=== PATIENT | female | born 1945 | race Caucasian/White ===

== ENCOUNTER → 2016-03-31 | Outpatient (CLI) | payer OTHER ==
[~2016-03-31] MED LIST: ACET-1256 PO; CHOL200027 PO; CLC100X PO; DIPH25CA37 PO; DRGTP12 TD; GADOXETATE DISODIUM IV PRN; HYDR2.5C37 TOP; HYDR25SU20 PR; LSN5 PO; OCTR50IN INJ
--- NOTE | 2016-03-31 12:29 | DIAGNOSTIC IMAGING REPORT ---
LIVER MRI WITH AND WITHOUT INTRAVENOUS CONTRAST HISTORY: D3A.00 BENIGN CARCINOID TUMOR UNSPECIFIED SITE TECHNIQUE: Multiplanar multisequence MRI of the abdomen was performed both before and after the intravenous administration of contrast. COMPARISON STUDY: Indium 111 scan 03/03/2016. Abdomen and pelvis CT 02/10/2016. FINDINGS: The lung bases are clear. The adrenal glands, pancreas, kidneys, and spleen are unremarkable. The gallbladder is surgically absent. No retroperitoneal lymphadenopathy. Common bile duct is mildly distended measuring up to 1 cm. This is not significant changed. There is mild intrahepatic bile duct dilatation which is also unchanged. There are no filling defects within the common bile duct. This could be due to the patient's postcholecystectomy state. There is redemonstration of the irregular 4.9 x 2.3 cm soft tissue mass within the right side of the central mesentery. This is only seen on the coronal sequences. There is a 1 cm enhancing T2 hyperintense, T1 hypointense lesion within the left side of the L2 vertebral body. There are least 15-20 lesions scattered throughout the liver with the largest in the right hepatic lobe measuring 4.2 cm. These demonstrate faint hypervascular enhancement. Therefore, these are consistent with metastatic disease. IMPRESSION: 1. There are approximately 15-20 lesions scattered throughout the liver with the largest in the right hepatic lobe measuring 4.2 cm. These are consistent with metastatic disease. 2. Redemonstration of the irregular 4.9 x 2.3 cm soft tissue mass within the right side of the central mesentery. This is consistent with the patient's history of carcinoid tumor. 3. An indeterminate 1 cm enhancing T2 hyperintense lesion within the left side of the vertebral body. This could represent an additional metastatic focus. 4. No change in the bile duct dilatation. Electronically signed by: Raymundo Chambers M.D. 03/31/2016 12:28 PM Dictated Date/Time: 03/31/2016 12:15 PM
[2016-04-04 12:31] LABS: 5-HIAA 9.9 mg/24 h (<=6.0)
== END | disposition home or self-care (01) ==
LOC: C.MRI 08:57
PROVIDERS: ATTEND Surgery
DX: D3A.098 Benign carcinoid tumors of other sites (principal); C7B.00 Secondary carcinoid tumors, unspecified site; K76.9 Liver disease, unspecified; R19.09 Other intra-abdominal and pelvic swelling, mass and lump

== ENCOUNTER → 2016-04-13 | Outpatient (CLI) | payer OTHER ==
[~2016-04-13] MED LIST changes: -GADOXETATE DISODIUM IV PRN
[2016-04-13 12:09] LABS: BASO % 0.3 %; BASO ABS # 0.03 K/uL (0-0.2); COMPLETE YES; EOS % 2.2 %; HEMATOCRIT 40.1 % (37-47); IG% 0.1 %; LYMPH % 28.7 %; LYMPH ABS # 2.49 K/uL (1.2-3.4); MEAN CELL VOLUME 89.9 fL (80-100); MEAN CORPUSCULAR HEMOGLOBIN 30.9 pg (25-34); MEAN CORPUSCULAR HGB CONC 34.4 g/dl (32-36); MEAN PLATELET VOLUME 10.9 fL (7.4-10.4); MONO % 7.2 %; NEUT % 61.5 %; PLATELET COUNT 341 K/uL (130-400); RED BLOOD COUNT 4.46 M/uL (4.2-5.4); WHITE BLOOD COUNT 8.67 K/uL (4.8-10.8)
[2016-04-13 12:30] LABS: ALT/SGPT 20 U/L (12-78); BLOOD UREA NITROGEN 11 mg/dl (7-18); BUN/CREATININE RATIO 12.1 (10-20); CALCIUM 9.2 mg/dl (8.5-10.1); CARBON DIOXIDE 27 mmol/L (21-32); CHLORIDE 106 mmol/L (98-107); CREATININE 0.94 mg/dl (0.60-1.20); GLUCOSE 93 mg/dl (70-99); POTASSIUM 4.1 mmol/L (3.5-5.1); SODIUM 142 mmol/L (136-145)
[2016-04-13 12:33] LABS: ALB/GLOB RATIO 0.9 (0.9-2); ALKALINE PHOSPHATASE 129 U/L (45-117); AST/SGOT 19 U/L (15-37)
--- NOTE | 2016-04-24 05:05 | CODING QUERY NO DIAGNOSIS ---
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 Please assist us with providing a diagnosis/symptom for the test(s) below: A diagnosis/symptom was not documented on your Order. A valid diagnosis/symptom is required to bill all insurances. Please remember that we are unable to code a diagnosis of rule out, probable, possible, questionable, or suspected. DOS: 04/13/16 Tests that require a diagnosis: * CBC WITH AUTO DIFFER DIAGNOSIS: * LDH DIAGNOSIS: * COMPREHENSIVE METABO DIAGNOSIS: * CHORMOGRANIN A DIAGNOSIS: Provider Signature: Date: Thank you Hollie Barajas Health Information Management Once completed, please kindly fax back to [phone] For questions please call [phone]
== END | disposition home or self-care (01) ==
LOC: C.LAB 11:21
PROVIDERS: ATTEND Internal Medicine Hematology & Oncology
DX: C7A.019 Malignant carcinoid tumor of the small intestine, unspecified portion (principal)

== ENCOUNTER 2016-04-26 18:56 | Inpatient (IN) | payer OTHER ==
[~2016-04-26] VITALS: Ht 160 cm; Wt 74.1 kg
[~2016-04-26 18:56] MED LIST changes: -CLC100X PO; -DRGTP12 TD; -HYDR2.5C37 TOP; -HYDR25SU20 PR; -OCTR50IN INJ
[2016-04-26] MEDS ORDERED: ONDANSETRON INJ 2 MG/ML 2 ML VIAL IV STA ×2 (19:40→21:25)
[2016-04-26] MEDS ORDERED: SODIUM CHLORIDE 0.9% 1000ML 1,000 ML IV STA ×2 (19:40)
[2016-04-26] MEDS ORDERED: HYDROmorphone INJ 0.5 MG/0.5 ML SYR IV PRN (19:45)
[2016-04-26 20:07] LABS: BASO % 0.3 %; BASO ABS # 0.04 K/uL (0-0.2); COMPLETE YES; HEMATOCRIT 40.9 % (37-47); IG% 0.4 %; LYMPH % 17.6 %; LYMPH ABS # 2.02 K/uL (1.2-3.4); MEAN CELL VOLUME 89.7 fL (80-100); MEAN CORPUSCULAR HEMOGLOBIN 30.5 pg (25-34); MEAN PLATELET VOLUME 10.4 fL (7.4-10.4); MONO % 5.5 %; NEUT % 74.2 %; PLATELET COUNT 322 K/uL (130-400); RED BLOOD COUNT 4.56 M/uL (4.2-5.4); WHITE BLOOD COUNT 11.49 K/uL (4.8-10.8)
[2016-04-26 20:17] LABS: PROTHROMBIN TIME (PATIENT) 10.6 SECONDS (9.0-12.0)
[2016-04-26 20:25] LABS: BLOOD UREA NITROGEN 11 mg/dl (7-18); CREATININE 0.88 mg/dl (0.60-1.20); GLUCOSE 129 mg/dl (70-99)
[2016-04-26 20:26] LABS: ALT/SGPT 26 U/L (12-78); CALCIUM 9.3 mg/dl (8.5-10.1); CARBON DIOXIDE 30 mmol/L (21-32); CHLORIDE 102 mmol/L (98-107); SODIUM 137 mmol/L (136-145)
[2016-04-26 20:28] LABS: ALKALINE PHOSPHATASE 142 U/L (45-117); AST/SGOT 24 U/L (15-37)
--- NOTE | 2016-04-26 21:26 | DIAGNOSTIC IMAGING REPORT ---
PA CHEST RADIOGRAPH AND UPRIGHT AND SUPINE AP RADIOGRAPHS OF THE ABDOMEN CLINICAL HISTORY: Abdominal pain. COMPARISON STUDY: CT of the abdomen and pelvis and chest radiograph February 10, 2016. FINDINGS: Lung volumes are normal. No consolidation is identified. Linear left midlung opacity suggest atelectasis or scarring. Cardiac size is normal. Mediastinal contours are normal. There is no evidence of pulmonary edema. There are cholecystectomy clips. There is no free air. Bowel gas pattern is normal. Pelvic calcifications represent phleboliths. Severe arthritis of the hips is noted. A moderate amount of stool within the rectum is noted. IMPRESSION: 1. No free air or evidence of bowel obstruction. 2. No acute cardiopulmonary findings. 3. Moderate amount of stool within the rectum. Electronically signed by: Pierre El M.D. 04/26/2016 9:25 PM Dictated Date/Time: 04/26/2016 9:21 PM
[2016-04-26] MEDS ORDERED: PROMETHAZINE HCL INJ 25 MG in SODIUM CHLORIDE 0.9% 50ML 50 ML IV STA (22:05)
--- NOTE | 2016-04-26 22:26 | EMERGENCY ROOM VISIT NOTE ---
History Report prepared by Jonathan: Nina Kam Under the Supervision of: Dr. Cristobal Magallanes D.O. First contact with patient: 19:35 Chief Complaint: ABDOMINAL PAIN Stated Complaint: ABD PAIN History of Present Illness The patient is a 71 year old female who presents to the Emergency Room with complaints of constant diffuse abdominal pain that started 4.5 hours ago around 1500. The patient has experienced similar pain in the past with the tumors on her liver. 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 This is the first time the patient has experienced pain since she was diagnosed with carcinoid disease a couple months ago. The patient is also experiencing shortness of breath, but she states that it is not new. Additionally, she states that her face will intermittently get very erythematous. She denies fevers, chest pain, nausea, vomiting, hematuria, hematochezia, and rectal bleeding. The patient states that she had a bowel movement yesterday without any difficulty. She also states that she has never been given anything stronger than Tylenol when she experiences this pain. The patient has received multiple CT scans and MRIs for the carcinoid disease. The patient's most recent imaging of her abdomen was a MRI at the beginning of this month. The patient's daughter states that the patient was going to have surgery on her abdomen to remove the tumor and half of her liver, but a MRI before the surgery revealed that there were too many tumors to operate. After this, the patient's doctor reduced the number of shots that she was injecting into her abdomen and the patient's daughter states that she thinks that the patient's symptoms have been getting worse since then. The patient has a history of an appendectomy, tonsillectomy, cholecystectomy, and a hysterectomy secondary to fibroids. Source of History: patient, family (daughter) Onset: 4.5 hours ago around 1500 Position: abdomen (diffuse) Timing: constant Associated Symptoms: + SOB, No chest pain, No fevers, No hematochezia, No nausea, No urinary symptoms (hematuria), No vomiting Note: face intermittently erythematous, no rectal bleeding Review of Systems See HPI for pertinent positives & negatives. A total of 10 systems reviewed and were otherwise negative. Past Medical & Surgical Medical Problems: (1) Carcinoid tumor of abdomen (2) Coronary vasospasm (3) Syncope Surgical Problems: (1) History of hysterectomy (2) History of tonsillectomy and adenoidectomy (3) S/P appendectomy (4) S/P cholecystectomy Family History No pertinent family history Social History Smoking Status: Never Smoker Housing Status: lives with significant other Current/Historical Medications Scheduled Cholecalciferol (Vitamin D-3), 2,000 UNITS PO QAM Diphenhydramine Hcl (Benadryl), 25 MG PO DAILY Lisinopril (Lisinopril), 2.5 MG PO QAM Scheduled PRN Acetaminophen (Tylenol), 500 MG PO Q8 PRN for Pain Allergies Coded Allergies: Latex1 -Allergic Contact Dermititis (Verified Allergy, Mild, RASH, 04/26/16 ) Aspirin (Unverified Allergy, Unknown, "ASTHMA", 04/26/16) Celecoxib (Unverified Allergy, Unknown, "ASTHMA ATTACK", 04/26/16) Codeine (Unverified Allergy, Unknown, "FACE PUFFS UP", 04/26/16) Lorazepam (Unverified Allergy, Unknown, ANXIOUS, 04/26/16) Morphine (Unverified Allergy, Unknown, "FACE PUFFS UP", 04/26/16) Caffeine (Verified Adverse Reaction, Intermediate, HEADACHE, 04/26/16) Midazolam (Unverified Adverse Reaction, Intermediate, extreme anxiety, ) 2mg of versed given during heart catheterization, patient experienced extreme restlessness and anxiety. Uncoded Allergies: OPIOIDS (Adverse Reaction, Intermediate, HALLUCINATIONS, 12/05/15) Physical Exam Vital Signs Date Time Temp Pulse Resp B/P Pulse Ox O2 Delivery O2 Flow Rate FiO2 04/26/16 21:44 78 20 144/84 96 Room Air 04/26/16 20:57 71 20 162/97 96 Room Air 04/26/16 20:42 67 04/26/16 19:01 37.0 90 20 178/112 96 Room Air Physical Exam GENERAL: Patient is awake, alert, and in no acute distress. Patient is somewhat anxious appearing and uncomfortable. EYES: The conjunctivae are clear. The pupils are round and reactive. EARS, NOSE, MOUTH AND THROAT: The nose is without any evidence of any deformity. Mucous membranes are moist tongue is midline NECK: The neck is nontender and supple. RESPIRATORY: Normal respiratory effort is noted there is no evidence of wheezing rhonchi or rales CARDIOVASCULAR: Regular rate and rhythm noted there no murmurs rubs or gallops normal S1 normal S2 GASTROINTESTINAL: The abdomen is mildly distended but soft. Bowel sounds are present in all quadrants. Abdomen is diffusely tender to palpation. No guarding or rigidity appreciated. MUSCULOSKELETAL/EXTREMITIES: There is no evidence of gross deformity full range of motion is noted in the hips and shoulders SKIN: There is no obvious evidence of any rash. There are no petechiae, pallor or cyanosis noted. NEUROLOGIC: Patient is awake alert and oriented x3 Medical Decision & Procedures ER Provider Diagnostic Interpretation: X-ray results as stated below per interpretation by me and the radiologist. PA CHEST RADIOGRAPH AND UPRIGHT AND SUPINE AP RADIOGRAPHS OF THE ABDOMEN IMPRESSION: 1. No free air or evidence of bowel obstruction. 2. No acute cardiopulmonary findings. 3. Moderate amount of stool within the rectum. Electronically signed by: Pierre El M.D. 04/26/2016 9:25 PM Dictated Date/Time: 04/26/2016 9:21 PM Laboratory Results 04/26/16 20:00 Red Blood Count 4.56, Mean Corpuscular Volume 89.7, Mean Corpuscular Hemoglobin 30.5, Mean Corpuscular Hemoglobin Concent 34.0, Mean Platelet Volume 10.4, Neutrophils (%) (Auto) 74.2, Lymphocytes (%) (Auto) 17.6, Monocytes (%) (Auto) 5.5, Eosinophils (%) (Auto) 2.0, Basophils (%) (Auto) 0.3, Neutrophils # (Auto) 8.52, Lymphocytes # (Auto) 2.02, Monocytes # (Auto) 0.63, Eosinophils # (Auto) 0.23, Basophils # (Auto) 0.04 04/26/16 20:00 Test 04/26/16 20:00 White Blood Count 11.49 K/uL (4.8-10.8) Red Blood Count 4.56 M/uL (4.2-5.4) Hemoglobin 13.9 g/dL (12.0-16.0) Hematocrit 40.9 % (37-47) Mean Corpuscular Volume 89.7 fL (80-100) Mean Corpuscular Hemoglobin 30.5 pg (25-34) Mean Corpuscular Hemoglobin Concent 34.0 g/dl (32-36) Platelet Count 322 K/uL (130-400) Mean Platelet Volume 10.4 fL (7.4-10.4) Neutrophils (%) (Auto) 74.2 % Lymphocytes (%) (Auto) 17.6 % Monocytes (%) (Auto) 5.5 % Eosinophils (%) (Auto) 2.0 % Basophils (%) (Auto) 0.3 % Neutrophils # (Auto) 8.52 K/uL (1.4-6.5) Lymphocytes # (Auto) 2.02 K/uL (1.2-3.4) Monocytes # (Auto) 0.63 K/uL (0.11-0.59) Eosinophils # (Auto) 0.23 K/uL (0-0.5) Basophils # (Auto) 0.04 K/uL (0-0.2) RDW Standard Deviation 49.6 fL (36.4-46.3) RDW Coefficient of Variation 15.1 % (11.5-14.5) Immature Granulocyte % (Auto) 0.4 % Immature Granulocyte # (Auto) 0.05 K/uL (0.00-0.02) Prothrombin Time 10.6 SECONDS (9.0-12.0) Prothromb Time International Ratio 1.0 (0.9-1.1) Activated Partial Thromboplast Time 24.9 SECONDS (21.0-31.0) Partial Thromboplastin Ratio 1.0 Anion Gap 5.0 mmol/L (3-11) Est Creatinine Clear Calc Drug Dose 57.2 ml/min Estimated GFR () 76.6 Estimated GFR (Non- 66.1 BUN/Creatinine Ratio 12.0 (10-20) Calcium Level 9.3 mg/dl (8.5-10.1) Total Bilirubin 0.4 mg/dl (0.2-1) Direct Bilirubin < 0.1 mg/dl (0-0.2) Aspartate Amino Transf (AST/SGOT) 24 U/L (15-37) Alanine Aminotransferase (ALT/SGPT) 26 U/L (12-78) Alkaline Phosphatase 142 U/L (45-117) Troponin I < 0.015 ng/ml (0-0.045) Total Protein 8.1 gm/dl (6.4-8.2) Albumin 3.8 gm/dl (3.4-5.0) Lipase 98 U/L (73-393) Laboratory results per my review. Medications Administered Medications (Trade) Dose Ordered Sig/Yahaira Route Start Time Stop Time Status Last Admin Dose Admin Sodium Chloride 1,000 ml @ 999 mls/hr Q1H1M STAT IV 04/26/16 19:40 04/26/16 20:40 DC 04/26/16 20:20 999 MLS/HR Sodium Chloride (Nss 1000ml) 1,000 ml @ 125 mls/hr Q8H STAT IV 04/26/16 19:40 04/27/16 02:01 DC 04/26/16 20:21 125 MLS/HR Ondansetron HCl (Zofran Inj) 4 mg NOW STAT IV 04/26/16 19:40 04/26/16 19:41 DC 04/26/16 20:21 4 MG Hydromorphone HCl (Dilaudid Inj) 0.5 mg Q30M PRN IV 04/26/16 19:45 04/27/16 02:02 DC 04/26/16 20:21 0.5 MG Ondansetron HCl 4 mg 4 mg NOW STAT IV 04/26/16 21:25 04/26/16 21:26 DC 04/26/16 21:44 4 MG Promethazine HCl/ Sodium Chloride (Phenergan Inj/ Nss 50ml) 51 ml @ 204 mls/hr NOW STAT IV 04/26/16 22:05 04/26/16 22:19 DC 04/26/16 23:13 204 MLS/HR ECG Indication: abdominal pain Rate (beats per minute): 72 Rhythm: normal sinus Findings: ST depression (Inferior, Lateral), other (diffuse T-wave abnormality) Comparison ECG Date: 02/11/2016 Change: no significant change ED Course 1935: The patient was evaluated in room A4. A complete history and physical examination were performed. 0: Ordered Zofran Inj 4 mg IV, NSS 1,000 ml @ 125 mls/hr IV, NSS 1,000 ml @ 999 mls/hr IV 1944: Ordered Dilaudid Inj 0.5 mg IV 2124: Ordered Zofran Inj 4 mg IV 2202: Upon reevaluation, the patient is not feeling any better. I discussed results and treatment plan with the patient and her family. They verbalize agreement and understanding. The patient will be evaluated for further management and care. 2204: Ordered Promethazine HCl 25 mg/Sodium Chloride 51 ml @ 204 mls/hr IV 2211: I discussed the patient's case with Dr. Brodie Hoffman. The patient will be evaluated for further management. Medical Decision Prior records/ancillary studies reviewed. Triage Nursing notes reviewed. Additional history obtained from the patient's family. The patient's history was concerning for abdominal pain. Differential diagnosis: Etiologies such as appendicitis, diverticulitis, PUD, biliary pathology, UTI, pancreatitis, obstruction, mesenteric ischemia, aortic pathology, infections, inflammatory bowel disease, renal colic, as well as others were entertained. The patient is a 71-year-old female who presented to the emergency apartment for an evaluation of upper abdominal pain nausea and vomiting. The patient was recently diagnosed with carcinoid tumor which appears to be metastatic at this time. She was in our facility for similar complaints and was transferred to a tertiary center. The patient had a workup at the tertiary center and at this time the family does not feel that she is a surgical candidate although there is no definite plan in place for how she is going to manage this unfortunate diagnosis. The patient was treated with IV fluids IV pain medicine and IV antiemetics. She was reevaluated multiple times. On subsequent reevaluation she continues to have significant symptoms. For this reason I discussed her case with the on-call [facility] hospitalist. They have agreed to evaluate the patient in the emergency apartment for further management and disposition. Consults Time Called: 2203 Consulting Physician: Dr. Brodie Hoffman Returned Call: 2211 I discussed the patient's case with Dr. Brodie Hoffman. The patient will be evaluated for further management. Impression Primary Impression: Intractable nausea and vomiting Additional Impressions: Intractable upper abdominal pain History of malignant carcinoid tumor Scribe Attestation The scribe's documentation has been prepared under my direction and personally reviewed by me in its entirety. I confirm that the note above accurately reflects all work, treatment, procedures, and medical decision making performed by me. Departure Information Dispostion Being Evaluated By Hospitalist Referrals Kassandra Fofana PA-C (PCP) Patient Instructions My [facility] Problem Qualifiers Primary Impression: Intractable nausea and vomiting Vomiting type: unspecified Qualified Codes: R11.2 - Nausea with vomiting, unspecified
[2016-04-26] MEDS ORDERED: ONDANSETRON INJ 2 MG/ML 2 ML VIAL IV PRN (23:00)
[2016-04-26] MEDS ORDERED: SODIUM CHLORIDE 0.9% 1000ML 1,000 ML IV SCH (23:00)
[2016-04-26] MEDS ORDERED: PROMETHAZINE HCL 25 MG SUPP PR PRN (23:00)
--- NOTE | 2016-04-26 23:31 | History and Physical ---
History & Physical Date & Time of Service: Apr 26, 2016 at 23:01 Chief Complaint: Abd Pain Primary Care Physician: Kassandra Fofana PA-C History of Present Illness Source: patient 71 yo female with diffuse abdominal pain that began several hours ago. Quality described as "it just hurts" but does also say this was similar to abdominal pain she has had in the past related to her illness. She denies any issues with her bowels and last had a BM yesterday which was reportedly normal. She did not have vomiting prior to arrival, however, developed significant vomiting after a small dose of dilaudid, which of course made her abdominal pain worse. She denies any episodes of abdominal pain since her last admission to the hospital in Jan. She has had multiple imaging studies performed within that time, the latest being a CT c/a/p with IV contrast. This was performed 03/19/16 and reveals a primary ileal partially calcified carcinoid tumor with adjacent regional mesenteric mass, unchanged bilateral lobar hepatic mets, multiple pulmonary nodules and an extrahepatic biliary dilation measuring up to 1.4cm which tapers distally. She was diagnosed with abdominal carcinoid in Jan after being admitted and worked up for syncope, and was transferred to [facility] for further workup and treatment. She was found to have mets that were too extensive for surgery and she has been treated medically since that time with Octreotide injections. She is under the care of Dr. Molina for this, and the patient feels that ever since she was changed from the short-acting TID dosing to the long-acting once monthly dosing she has felt worse overall. Past Medical/Surgical History Medical Problems: (1) Carcinoid tumor of abdomen Status: Chronic (2) Coronary vasospasm Status: Chronic (3) Syncope Status: Resolved Surgical Problems: (1) History of hysterectomy Status: Chronic (2) History of tonsillectomy and adenoidectomy Status: Chronic (3) S/P appendectomy Status: Chronic (4) S/P cholecystectomy Status: Chronic Family History No pertinent family history Social History Smoking Status: Never Smoker Smokeless Tobacco Use: No Alcohol Use: none Drug Use: none Marital Status: Housing status: lives with significant other Occupational Status: retired Immunizations History of Influenza Vaccine: Yes Influenza Vaccine Date: Sep 29, 2015 History of Tetanus Vaccine?: Yes Tetanus Immunization Date: Jan 25, 2010 History of Pneumococcal: Yes Pneumococcal Date: Jan 25, 2010 History of Hepatitis B Vaccine: No Multi-Drug Resistant Organisms History of MDRO: No Allergies Coded Allergies: Latex1 -Allergic Contact Dermititis (Verified Allergy, Mild, RASH, 04/26/16 ) Aspirin (Unverified Allergy, Unknown, "ASTHMA", 04/26/16) Celecoxib (Unverified Allergy, Unknown, "ASTHMA ATTACK", 04/26/16) Codeine (Unverified Allergy, Unknown, "FACE PUFFS UP", 04/26/16) Lorazepam (Unverified Allergy, Unknown, ANXIOUS, 04/26/16) Morphine (Unverified Allergy, Unknown, "FACE PUFFS UP", 04/26/16) Caffeine (Verified Adverse Reaction, Intermediate, HEADACHE, 04/26/16) Midazolam (Unverified Adverse Reaction, Intermediate, extreme anxiety, ) 2mg of versed given during heart catheterization, patient experienced extreme restlessness and anxiety. Uncoded Allergies: OPIOIDS (Adverse Reaction, Intermediate, HALLUCINATIONS, 12/05/15) Home Medications Scheduled Cholecalciferol (Vitamin D-3), 2,000 UNITS PO QAM Diphenhydramine Hcl (Benadryl), 25 MG PO DAILY Lisinopril (Lisinopril), 2.5 MG PO QAM Scheduled PRN Acetaminophen (Tylenol), 500 MG PO Q8 PRN for Pain Review of Systems All systems were reviewed and negative except as indicated in HPI Physical Exam Vital Signs Date Time Temp Pulse Resp B/P Pulse Ox O2 Delivery O2 Flow Rate FiO2 04/26/16 21:44 78 20 144/84 96 Room Air 04/26/16 20:57 71 20 162/97 96 Room Air 04/26/16 20:42 67 04/26/16 19:01 37.0 90 20 178/112 96 Room Air GEN: WNWD, in distress as she is very nauseated and continues to vomit, alert and appropriate HEENT: NC/AT, normal sclerae CARDIO: reg rate, S1/2 heard without m/g/r LUNGS: CTA bilaterally, no crackles, rales or wheezes, good diaphragmatic excursion ABD: soft, diffusely tender more around RUQ area, non-distended, +BS, no CVA tenderness EXTREMITY: RP and DP palpable 2+ bilat, no LE swelling or edema, extremities are warm and well-perfused NEURO: CN 2-12 grossly intact, limited exam due to excessive vomiting MUSC: moving all limbs equally, no gross focal deficits, strength appears to be intact. Limited exam due to vomiting and discomfort. SKIN: warm and dry Diagnostics Laboratory Results Results Past 24 Hours Test 04/26/16 20:00 Range/Units White Blood Count 11.49 4.8-10.8 K/uL Red Blood Count 4.56 4.2-5.4 M/uL Hemoglobin 13.9 12.0-16.0 g/dL Hematocrit 40.9 37-47 % Mean Corpuscular Volume 89.7 80-100 fL Mean Corpuscular Hemoglobin 30.5 25-34 pg Mean Corpuscular Hemoglobin Concent 34.0 32-36 g/dl Platelet Count 322 130-400 K/uL Mean Platelet Volume 10.4 7.4-10.4 fL Neutrophils (%) (Auto) 74.2 % Lymphocytes (%) (Auto) 17.6 % Monocytes (%) (Auto) 5.5 % Eosinophils (%) (Auto) 2.0 % Basophils (%) (Auto) 0.3 % Neutrophils # (Auto) 8.52 1.4-6.5 K/uL Lymphocytes # (Auto) 2.02 1.2-3.4 K/uL Monocytes # (Auto) 0.63 0.11-0.59 K/uL Eosinophils # (Auto) 0.23 0-0.5 K/uL Basophils # (Auto) 0.04 0-0.2 K/uL RDW Standard Deviation 49.6 36.4-46.3 fL RDW Coefficient of Variation 15.1 11.5-14.5 % Immature Granulocyte % (Auto) 0.4 % Immature Granulocyte # (Auto) 0.05 0.00-0.02 K/uL Prothrombin Time 10.6 9.0-12.0 SECONDS Prothromb Time International Ratio 1.0 0.9-1.1 Activated Partial Thromboplast Time 24.9 21.0-31.0 SECONDS Partial Thromboplastin Ratio 1.0 Sodium Level 137 136-145 mmol/L Potassium Level 4.0 3.5-5.1 mmol/L Chloride Level 102 98-107 mmol/L Carbon Dioxide Level 30 21-32 mmol/L Anion Gap 5.0 3-11 mmol/L Blood Urea Nitrogen 11 7-18 mg/dl Creatinine 0.88 0.60-1.20 mg/dl Est Creatinine Clear Calc Drug Dose 57.2 ml/min Estimated GFR () 76.6 Estimated GFR (Non- 66.1 BUN/Creatinine Ratio 12.0 10-20 Random Glucose 129 70-99 mg/dl Calcium Level 9.3 8.5-10.1 mg/dl Total Bilirubin 0.4 0.2-1 mg/dl Direct Bilirubin < 0.1 0-0.2 mg/dl Aspartate Amino Transf (AST/SGOT) 24 15-37 U/L Alanine Aminotransferase (ALT/SGPT) 26 12-78 U/L Alkaline Phosphatase 142 45-117 U/L Troponin I < 0.015 0-0.045 ng/ml Total Protein 8.1 6.4-8.2 gm/dl Albumin 3.8 3.4-5.0 gm/dl Lipase 98 73-393 U/L Diagnostic Radiology PA CHEST RADIOGRAPH AND UPRIGHT AND SUPINE AP RADIOGRAPHS OF THE ABDOMEN IMPRESSION: 1. No free air or evidence of bowel obstruction. 2. No acute cardiopulmonary findings. 3. Moderate amount of stool within the rectum. EKG SR 72, no ST or T wave changes. Impression Assessment and Plan 71 yoF with abdominal carcinoid with mets presents with acute abdominal pain that began several hours ago, now with intractable nausea and vomiting after receiving dilaudid 1. Abdominal pain-uncertain if this is a manifestation of her known metastatic disease or if she is having acute abdominal discomfort for another separate reason. There is no bowel obstruction on xray, although she does appear full of stool. She reports that her last BM was yesterday. Her abdomen is soft on exam with diffuse tenderness. Lactate pending. Will offer supportive care overnight and help her to stop vomiting so we can reassess the abdominal pain that she came in for; consults placed to [facility] and [facility] as patient receives care with [facility] GI to weigh in on utility of MRCP given the biliary duct dilation seen on recent imaging study above. 2. Abdominal carcinoid-currently not receiving treatment aside from once monthly sandostatin 3. Xwvcogojpilc-rxppintxzk-dyxy Lis 4. Allergic rhinitis-takes benadryl PRN DVT proph: Lovenox FULL CODE Dispo: to med/surg with eval in am. Comfort [place], DO Hospitalist Level of Care Med/Surg Resuscitation Status FULL RESUSCITATION VTE Prophylaxis VTE Risk Assessment Done? Y/N: Yes Risk Level: Moderate Given or contraindicated: Enoxaparin (Lovenox)SQ
[2016-04-27 01:35] VITALS: BP 148/91; PULSE 79; TEMP 36.9; O2SAT 97; Ht 160 cm; Wt 74.1 kg
[2016-04-27] MEDS ORDERED: NURSING VERBAL MED ORDER ONE (02:15)
[2016-04-27 07:25] VITALS: BP 130/80; PULSE 62; TEMP 37; O2SAT 96
[2016-04-27] MEDS: CHOLECALCIFEROL 1000 INTER.UNIT TAB PO SCH (08:02)
[2016-04-27] MEDS: LISINOPRIL 5 MG TAB PO SCH (08:02)
[2016-04-27] MEDS: ENOXAPARIN 40 MG/0.4 ML SYR SQ SCH (08:03)
--- NOTE | 2016-04-27 10:50 | Oncology Consultation ---
Oncology/Heme Consultation Date of Consultation: Apr 27, 2016. Attending Physician: Marlon Witt MD Reason for Consultation: History of metastatic carcinoid History of Present Illness The patient is a 71-year-old female recently presented with abdominal pain and shortness of breath. She was found to have hepatic changes consistent with metastatic disease and a biopsy would reflect changes consistent with carcinoid. She has known many metastatic deposits to the liver as well as an area on the mesentery. She is been treated with octreotide now given monthly depot injections with the last injection being April 19. She was admitted with abdominal discomfort and nausea. She denies any fever or chills or shortness of breath or chest pain or weight loss. She has not seen any melena. She has had some nausea. She states she does have a difficult time tolerating narcotics. She wonders whether the monthly octreotide injections could be responsible for some of her symptoms Past Medical/Surgical History Medical Problems: (1) Dizziness Status: Acute (2) Dyspnea Status: Acute (3) History of malignant carcinoid tumor Status: Acute (4) Intractable nausea and vomiting Status: Acute (5) Intractable upper abdominal pain Status: Acute (6) Non-STEMI (non-ST elevated myocardial infarction) Status: Acute Family History No pertinent family history Social History Smoking Status: Never Smoker Smokeless Tobacco Use: No Alcohol Use: none Drug Use: none Marital Status: Housing Status: lives with significant other Occupation Status: retired Allergies Coded Allergies: Latex1 -Allergic Contact Dermititis (Verified Allergy, Mild, RASH, 04/26/16 ) Aspirin (Unverified Allergy, Unknown, "ASTHMA", 04/26/16) Celecoxib (Unverified Allergy, Unknown, "ASTHMA ATTACK", 04/26/16) Codeine (Unverified Allergy, Unknown, "FACE PUFFS UP", 04/26/16) Lorazepam (Unverified Allergy, Unknown, ANXIOUS, 04/26/16) Morphine (Unverified Allergy, Unknown, "FACE PUFFS UP", 04/26/16) Caffeine (Verified Adverse Reaction, Intermediate, HEADACHE, 04/26/16) Midazolam (Unverified Adverse Reaction, Intermediate, extreme anxiety, ) 2mg of versed given during heart catheterization, patient experienced extreme restlessness and anxiety. Uncoded Allergies: OPIOIDS (Adverse Reaction, Intermediate, HALLUCINATIONS, 12/05/15) Home Medications Scheduled Cholecalciferol (Vitamin D-3), 2,000 UNITS PO QAM Diphenhydramine Hcl (Benadryl), 25 MG PO DAILY Lisinopril (Lisinopril), 2.5 MG PO QAM Scheduled PRN Acetaminophen (Tylenol), 500 MG PO Q8 PRN for Pain Current Inpatient Medications Current Inpatient Medications Medications (Trade) Dose Ordered Sig/Yahaira Route Start Time Stop Time Status Last Admin Dose Admin Enoxaparin Sodium (Lovenox Inj) 40 mg Q24H SQ 04/27/16 09:00 05/27/16 08:59 04/27/16 08:03 40 MG Ondansetron HCl (Zofran Inj) 4 mg Q6H PRN IV 04/26/16 23:00 05/26/16 22:59 04/27/16 03:39 4 MG Promethazine HCl (Phenergan Supp) 25 mg Q6H PRN KS 04/26/16 23:00 05/26/16 22:59 Lisinopril (Zestril Tab) 2.5 mg QAM PO 04/27/16 09:00 05/27/16 08:59 04/27/16 08:02 2.5 MG Cholecalciferol (Vitamin D Tab) 2,000 inter.unit QAM PO 04/27/16 09:00 05/27/16 08:59 04/27/16 08:02 2,000 INTER.UNIT Review of Systems Constitutional: Negative for weight loss, night sweats, or fever. She and her daughter states that she does have flushing occasionally. Eyes: Negative for event change of vision ENT: Negative for epistaxis, nasal discharge, sore throat, or deafness Cardiovascular: Negative for chest pain, palpitations, dizziness, diaphoresis Respiratory: Negative for new shortness of breath,hemoptysis, or purulent cough Gastrointestinal: Negative for diarrhea, hematemesis, melena, she has had recent nausea. Again she describes this pain as being primarily mid abdomen Integumentary (skin): Negative for rash or jaundice discoloration Genitourinary: Negative for urinary frequency, hematuria, or dysuria Neurological: Negative for weakness, seizure activity, headache, or dizziness Lymphatic/Hematologic: Negative for petechiae, bleeding or new adenopathy Musculoskeletal: Negative for new joint or back pain Allergic/Immunologic: Negative for unusual rash or pruritis. Physical Exam Date Time Temp Pulse Resp B/P Pulse Ox O2 Delivery O2 Flow Rate FiO2 04/27/16 07:30 Room Air 04/27/16 07:25 37.0 62 20 130/80 96 04/27/16 01:35 36.9 79 18 148/91 97 Room Air 04/27/16 00:34 75 20 147/85 93 04/26/16 22:58 73 20 145/80 92 Room Air 04/26/16 21:44 78 20 144/84 96 Room Air 04/26/16 20:57 71 20 162/97 96 Room Air 04/26/16 20:42 67 04/26/16 19:01 37.0 90 20 178/112 96 Room Air Constitutional: vitals are stable. Eyes: Eyes are ROSEMARY EOMI without conjuctival erythema or icterus. ENT: External examination was negative for masses. Neck: Negative for masses or palpable thyromegaly Respiratory: Lung sounds were generally clear bilaterally Cardiovascular: Heart was RRR without significant murmur, gallops aoe rubs Gastrointestinal: No palpable hepatic or splenomegaly. The abdomen was soft with normal bowel sounds. Lymphatic system: there was no palpable peripheral lymphadenopathy Musculoskeletal System: The musculoskeletal system seemed concordant with age. Skin: The skin was negative for jaundice. Neurologic exam: The exam was negative for any focal findings. Deep tendon reflexes were equal and symmetrical. Psychiatric exam: Was essentially negative with normal mood and effect. Breast exam: Not done Extremities: Without significant edema or erythema Laboratory Results Last 24 Hours Test 04/26/16 20:00 04/27/16 00:22 04/27/16 06:30 White Blood Count 11.49 K/uL Red Blood Count 4.56 M/uL Hemoglobin 13.9 g/dL Hematocrit 40.9 % Mean Corpuscular Volume 89.7 fL Mean Corpuscular Hemoglobin 30.5 pg Mean Corpuscular Hemoglobin Concent 34.0 g/dl Platelet Count 322 K/uL Mean Platelet Volume 10.4 fL Neutrophils (%) (Auto) 74.2 % Lymphocytes (%) (Auto) 17.6 % Monocytes (%) (Auto) 5.5 % Eosinophils (%) (Auto) 2.0 % Basophils (%) (Auto) 0.3 % Neutrophils # (Auto) 8.52 K/uL Lymphocytes # (Auto) 2.02 K/uL Monocytes # (Auto) 0.63 K/uL Eosinophils # (Auto) 0.23 K/uL Basophils # (Auto) 0.04 K/uL RDW Standard Deviation 49.6 fL RDW Coefficient of Variation 15.1 % Immature Granulocyte % (Auto) 0.4 % Immature Granulocyte # (Auto) 0.05 K/uL Prothrombin Time 10.6 SECONDS Prothromb Time International Ratio 1.0 Activated Partial Thromboplast Time 24.9 SECONDS Partial Thromboplastin Ratio 1.0 Sodium Level 137 mmol/L Potassium Level 4.0 mmol/L Chloride Level 102 mmol/L Carbon Dioxide Level 30 mmol/L Anion Gap 5.0 mmol/L Blood Urea Nitrogen 11 mg/dl Creatinine 0.88 mg/dl Est Creatinine Clear Calc Drug Dose 57.2 ml/min Estimated GFR () 76.6 Estimated GFR (Non- 66.1 BUN/Creatinine Ratio 12.0 Random Glucose 129 mg/dl Calcium Level 9.3 mg/dl Total Bilirubin 0.4 mg/dl Direct Bilirubin < 0.1 mg/dl Aspartate Amino Transf (AST/SGOT) 24 U/L Alanine Aminotransferase (ALT/SGPT) 26 U/L Alkaline Phosphatase 142 U/L Troponin I < 0.015 ng/ml Total Protein 8.1 gm/dl Albumin 3.8 gm/dl Lipase 98 U/L Bedside Lactic Acid Venous 2.16 mmol/L Lactic Acid Level 1.5 mmol/L Assessment & Plan History of metastatic carcinoid. I believe we are obliged to do a CT of her abdomen and pelvis to assess her disease once again. The last one was done in mid January. It doesn't seem to be that she has any sort of obstructive GI symptoms. I tried to reassure her that the injections were not responsible for her nausea or pain. I would place a small dose of Duragesic perhaps 12 g per hour patch every 72 hours with Tylenol 3 1- 2 every 6 hours as needed for breakthrough pain along with a stool softener otherwise a supportive approach will continue. Thank you - I will order the CT
[2016-04-27] MEDS ORDERED: OPTIRAY 320 IV PRN (11:00)
--- NOTE | 2016-04-27 13:58 | DIAGNOSTIC IMAGING REPORT ---
CT OF THE ABDOMEN AND PELVIS WITH CONTRAST CLINICAL HISTORY: Metastatic carcinoid with abdominal pain. COMPARISON STUDY: CT of the abdomen and pelvis February 10, 2016 and liver MRI March 31, 2016. TECHNIQUE: Following IV administration of 118 mL of Optiray-320, axial images of the abdomen and pelvis were obtained from the lung bases to the proximal femurs. Images were reviewed in the axial, sagittal, and coronal planes. IV contrast was administered without complication. Oral contrast was administered. CT DOSE: 470.97 mGy.cm FINDINGS: No pneumatosis, free air or portal venous gas is present. Multiple hypodense hepatic lesions are again noted. These are less well defined than on CT of February 10, 2016. An index right hepatic lobe lesion measures 4.2 x 3.8 cm. This is slightly decreased in size since prior exam when it measured 4.5 x 3.9 cm. An anterior right hepatic lobe lesion shown on image 22 has slightly decreased in size. It now measures 2.8 cm. It previously measured 2.9 cm. The smaller lesions shown on prior MRI are not well visualized by CT. Mild biliary ductal dilatation is unchanged and likely due to prior cholecystectomy. The spleen, adrenal glands, kidneys and pancreas are unremarkable. The mesenteric mass, measuring 3.6 x 1.6 cm is similar to prior exam. A few loops of mildly dilated small bowel are noted within the right lower quadrant, adjacent to the orlando mass. However, contrast passes into the terminal ileum. There is no evidence for a high-grade small bowel obstruction. No additional enlarged lymph nodes are present. Tethering of the small bowel loops is noted within the right lower quadrant. This is unchanged. IMPRESSION: 1. Slight interval decrease in size of several hepatic lesions since prior CT suggestive of a partial treatment response. 2. No change in size of the mesenteric orlando mass. Mild dilatation of several small bowel loops with associated tethering within the right lower quadrant. Contrast passes into the terminal ileum and therefore there is no evidence for high-grade small bowel obstruction. A low-grade partial small bowel obstruction would be difficult to exclude. Electronically signed by: Pierre El M.D. 04/27/2016 1:57 PM Dictated Date/Time: 04/27/2016 1:47 PM
[2016-04-27 15:14] VITALS: BP 130/81; PULSE 66; TEMP 37; O2SAT 95
--- NOTE | 2016-04-27 15:24 | Progress Note ---
Internal Med Progress Note Date of Service: Apr 27, 2016. Provider Documentation: SUBJECTIVE: Patient is seen and examined at bedside. States having intermittent abd pain. Currently denies any abd pain, nausea, vomiting. Had 1 BM today. OBJECTIVE: Vital Signs-as noted below Physical Exam: General Appearance:Moderately built and nourished, no apparent distress Head: normocephalic, Atraumatic Eyes: normal inspection, EOMI, PERRLA Neck: supple, Trachea midline Respiratory/Chest: Normal breath sounds, CTA, No accessory muscle use Cardiovascular: S1, S2, No murmur Abdomen/GI:Soft, non tender, Bowel sounds present Extremities/Musculoskelatal:normal inspection, no edema Neurologic/Psych:AAOX3, grossly no focal neurological deficits Skin: normal color, warm Lab data as noted below. ASSESSMENT & PLAN: Abdominal pain: Likely secondary to metastatic carcinoid CT abdomen: as below No bowel obstruction on xray Had BM today Lipase/lactate levels:wnl On monthly Octreotide injections: Last dose Apr 19 Appreciate oncology help Start Duragesic 12 g per hour patch Q72H Will add Tylenol 3: 1- 2 Q6H PRN for pain control if needed stool softener PRN for constipation GI consulted S/P IVF Metastatic Abdominal carcinoid: Monthly Sandostatin Oncology following Hypertension: Stable continue Lisinopril Allergic rhinitis: Benadryl PRN DVT PX: Lovenox Code status: FULL CODE Disposition: Continue to monitor for now PROCEDURES: CT ABD: 1. Slight interval decrease in size of several hepatic lesions since prior CT suggestive of a partial treatment response. 2. No change in size of the mesenteric orlando mass. Mild dilatation of several small bowel loops with associated tethering within the right lower quadrant. Contrast passes into the terminal ileum and therefore there is no evidence for high-grade small bowel obstruction. A low-grade partial small bowel obstruction would be difficult to exclude. Vital Signs: Date Time Temp Pulse Resp B/P Pulse Ox O2 Delivery O2 Flow Rate FiO2 04/27/16 15:14 37.0 66 20 130/81 95 04/27/16 07:30 Room Air 04/27/16 07:25 37.0 62 20 130/80 96 04/27/16 01:35 36.9 79 18 148/91 97 Room Air 04/27/16 00:34 75 20 147/85 93 04/26/16 22:58 73 20 145/80 92 Room Air 04/26/16 21:44 78 20 144/84 96 Room Air 04/26/16 20:57 71 20 162/97 96 Room Air 04/26/16 20:42 67 04/26/16 19:01 37.0 90 20 178/112 96 Room Air Lab Results: Results Past 24 Hours Test 04/26/16 20:00 04/27/16 00:22 04/27/16 06:30 Range/Units White Blood Count 11.49 4.8-10.8 K/uL Red Blood Count 4.56 4.2-5.4 M/uL Hemoglobin 13.9 12.0-16.0 g/dL Hematocrit 40.9 37-47 % Mean Corpuscular Volume 89.7 80-100 fL Mean Corpuscular Hemoglobin 30.5 25-34 pg Mean Corpuscular Hemoglobin Concent 34.0 32-36 g/dl Platelet Count 322 130-400 K/uL Mean Platelet Volume 10.4 7.4-10.4 fL Neutrophils (%) (Auto) 74.2 % Lymphocytes (%) (Auto) 17.6 % Monocytes (%) (Auto) 5.5 % Eosinophils (%) (Auto) 2.0 % Basophils (%) (Auto) 0.3 % Neutrophils # (Auto) 8.52 1.4-6.5 K/uL Lymphocytes # (Auto) 2.02 1.2-3.4 K/uL Monocytes # (Auto) 0.63 0.11-0.59 K/uL Eosinophils # (Auto) 0.23 0-0.5 K/uL Basophils # (Auto) 0.04 0-0.2 K/uL RDW Standard Deviation 49.6 36.4-46.3 fL RDW Coefficient of Variation 15.1 11.5-14.5 % Immature Granulocyte % (Auto) 0.4 % Immature Granulocyte # (Auto) 0.05 0.00-0.02 K/uL Prothrombin Time 10.6 9.0-12.0 SECONDS Prothromb Time International Ratio 1.0 0.9-1.1 Activated Partial Thromboplast Time 24.9 21.0-31.0 SECONDS Partial Thromboplastin Ratio 1.0 Sodium Level 137 136-145 mmol/L Potassium Level 4.0 3.5-5.1 mmol/L Chloride Level 102 98-107 mmol/L Carbon Dioxide Level 30 21-32 mmol/L Anion Gap 5.0 3-11 mmol/L Blood Urea Nitrogen 11 7-18 mg/dl Creatinine 0.88 0.60-1.20 mg/dl Est Creatinine Clear Calc Drug Dose 57.2 ml/min Estimated GFR () 76.6 Estimated GFR (Non- 66.1 BUN/Creatinine Ratio 12.0 10-20 Random Glucose 129 70-99 mg/dl Calcium Level 9.3 8.5-10.1 mg/dl Total Bilirubin 0.4 0.2-1 mg/dl Direct Bilirubin < 0.1 0-0.2 mg/dl Aspartate Amino Transf (AST/SGOT) 24 15-37 U/L Alanine Aminotransferase (ALT/SGPT) 26 12-78 U/L Alkaline Phosphatase 142 45-117 U/L Troponin I < 0.015 0-0.045 ng/ml Total Protein 8.1 6.4-8.2 gm/dl Albumin 3.8 3.4-5.0 gm/dl Lipase 98 73-393 U/L Bedside Lactic Acid Venous 2.16 0.90-1.70 mmol/L Lactic Acid Level 1.5 0.4-2.0 mmol/L
[2016-04-27] MEDS ORDERED: DOCUSATE SODIUM 100 MG CAP PO PRN (15:45)
[2016-04-27] MEDS ORDERED: FENTANYL 12 MCG/HR TDSY TD SCH (16:00)
[2016-04-27] MEDS: CHECK FENTANYL PATCH PLACEMENT SCH ×2 (16:13→23:06)
[2016-04-27 23:13] VITALS: BP 100/67; PULSE 68; TEMP 36.7; O2SAT 92
[2016-04-28 04:19] VITALS: BP 106/65; PULSE 62; TEMP 36.6; O2SAT 98
[2016-04-28] MEDS: CHECK FENTANYL PATCH PLACEMENT SCH (07:57)
[2016-04-28] MEDS: ENOXAPARIN 40 MG/0.4 ML SYR SQ SCH (07:58)
[2016-04-28] MEDS: LISINOPRIL 5 MG TAB PO SCH (07:58)
[2016-04-28] MEDS: CHOLECALCIFEROL 1000 INTER.UNIT TAB PO SCH (07:58)
[2016-04-28 08:02] LABS: BUN/CREATININE RATIO 9.9 (10-20); CALCIUM 8.5 mg/dl (8.5-10.1); CREATININE 0.84 mg/dl (0.60-1.20); POTASSIUM 3.9 mmol/L (3.5-5.1)
[2016-04-28 08:08] VITALS: BP 128/72; PULSE 49; TEMP 36.8; O2SAT 95
[2016-04-28 09:05] VITALS: O2SAT 95
[2016-04-28 09:44] VITALS: PULSE 53
--- NOTE | 2016-04-28 10:28 | Hematology/Oncology Prog Note ---
Hematology/Onc Progress Note Date of Service Apr 28, 2016. Diagnoses Metastatic carcinoid Abdominal pain Nausea Medications Medications Administered Medications (Trade) Dose Ordered Sig/Yahaira Route Start Time Stop Time Status Last Admin Dose Admin Sodium Chloride 1,000 ml @ 999 mls/hr Q1H1M STAT IV 04/26/16 19:40 04/26/16 20:40 DC 04/26/16 20:20 999 MLS/HR Sodium Chloride (Nss 1000ml) 1,000 ml @ 125 mls/hr Q8H STAT IV 04/26/16 19:40 04/27/16 02:01 DC 04/26/16 20:21 125 MLS/HR Ondansetron HCl (Zofran Inj) 4 mg NOW STAT IV 04/26/16 19:40 04/26/16 19:41 DC 04/26/16 20:21 4 MG Hydromorphone HCl (Dilaudid Inj) 0.5 mg Q30M PRN IV 04/26/16 19:45 04/27/16 02:02 DC 04/26/16 20:21 0.5 MG Ondansetron HCl 4 mg 4 mg NOW STAT IV 04/26/16 21:25 04/26/16 21:26 DC 04/26/16 21:44 4 MG Promethazine HCl/ Sodium Chloride (Phenergan Inj/ Nss 50ml) 51 ml @ 204 mls/hr NOW STAT IV 04/26/16 22:05 04/26/16 22:19 DC 04/26/16 23:13 204 MLS/HR Enoxaparin Sodium (Lovenox Inj) 40 mg Q24H SQ 04/27/16 09:00 05/27/16 08:59 04/28/16 07:58 40 MG Ondansetron HCl (Zofran Inj) 4 mg Q6H PRN IV 04/26/16 23:00 05/26/16 22:59 04/27/16 03:39 4 MG Lisinopril (Zestril Tab) 2.5 mg QAM PO 04/27/16 09:00 05/27/16 08:59 04/28/16 07:58 2.5 MG Cholecalciferol (Vitamin D Tab) 2,000 inter.unit QAM PO 04/27/16 09:00 05/27/16 08:59 04/28/16 07:58 2,000 INTER.UNIT Fentanyl (Duragesic Patch) 12 mcg Q3D@1600 TD 04/27/16 16:00 05/11/16 15:59 04/27/16 16:11 12 MCG Miscellaneous Information (Check Fentanyl Patch Placement) 1 ea QS N/A 04/27/16 16:00 05/27/16 15:59 04/28/16 07:57 1 EA Diphenhydramine HCl (Benadryl Cap) 25 mg Q8H PRN PO 04/28/16 04:45 05/28/16 04:44 04/28/16 05:24 25 MG Subjective Today's quite comfortable. She is beginning to eat at least clear liquids she states without much of an issue Review of Systems: Constitutional: Negative for weight loss, night sweats, or fever Eyes: Negative for event change of vision ENT: Negative for epistaxis, nasal discharge, sore throat, or deafness Cardiovascular: Negative for chest pain, palpitations, dizziness, diaphoresis Respiratory: Negative for new shortness of breath,hemoptysis, or purulent cough Gastrointestinal: Negative for diarrhea, hematemesis, melena, nausea, vomiting , or dyspepsia Integumentary (skin): Negative for rash or jaundice discoloration Genitourinary: Negative for urinary frequency, hematuria, or dysuria Neurological: Negative for weakness, seizure activity, headache, or dizziness Lymphatic/Hematologic: Negative for petechiae, bleeding or new adenopathy Musculoskeletal: Negative for new joint or back pain Allergic/Immunologic: Negative for unusual rash or pruritis. Vital Signs Vital Signs Past 12 Hours Date Time Temp Pulse Resp B/P Pulse Ox O2 Delivery O2 Flow Rate FiO2 04/28/16 09:44 53 04/28/16 09:05 95 Room Air 04/28/16 08:08 36.8 49 12 128/72 95 Room Air 04/28/16 08:00 Room Air 04/28/16 04:19 36.6 62 20 106/65 98 Room Air 04/28/16 00:00 Room Air 04/27/16 23:13 36.7 68 16 100/67 92 Room Air Physical Exam Constitutional: vitals are stable. Eyes: Eyes are ROSEMARY EOMI without conjuctival erythema or icterus. ENT: External examination was negative for masses. Neck: Negative for masses or palpable thyromegaly Respiratory: Lung sounds were generally clear bilaterally Cardiovascular: Heart was RRR without significant murmur, gallops aoe rubs Gastrointestinal: No palpable hepatic or splenomegaly. The abdomen was soft with normal bowel sounds. Lymphatic system: there was no palpable peripheral lymphadenopathy Musculoskeletal System: The musculoskeletal system seemed concordant with age. Skin: The skin was negative for jaundice. Neurologic exam: The exam was negative for any focal findings. Deep tendon reflexes were equal and symmetrical. Psychiatric exam: Was essentially negative with normal mood and effect. Extremities: Negative for edema erythema Laboratory Last 24 Hours Test 04/28/16 07:08 Sodium Level 142 mmol/L Potassium Level 3.9 mmol/L Chloride Level 106 mmol/L Carbon Dioxide Level 30 mmol/L Anion Gap 6.0 mmol/L Blood Urea Nitrogen 8 mg/dl Creatinine 0.84 mg/dl Est Creatinine Clear Calc Drug Dose 59.2 ml/min Estimated GFR () 81.0 Estimated GFR (Non- 69.9 BUN/Creatinine Ratio 9.9 Random Glucose 99 mg/dl Calcium Level 8.5 mg/dl Assessment & Plan Metastatic carcinoid. She looks quite comfortable. Updated CT scans showed the metastatic liver nodules to actually beast mildly less in size and before in January. Similarly the mesenteric defect is about the same size if not also just slightly smaller. There is no evidence of bowel obstruction. She was informed of this. Little else to offer at this juncture from our service other than gradual increase in her diet. She'll be seen in follow-up in our clinic
--- NOTE | 2016-04-28 13:20 | Progress Note ---
Internal Med Progress Note Date of Service: Apr 28, 2016. Provider Documentation: SUBJECTIVE: Patient is seen and examined at bedside. States having mild abdominal discomfort. Currently denies any nausea, vomiting. Last BM yesterday. OBJECTIVE: Vital Signs-as noted below Physical Exam: General Appearance:Moderately built and nourished, no apparent distress Head: normocephalic, Atraumatic Eyes: normal inspection, EOMI, PERRLA Neck: supple, Trachea midline Respiratory/Chest: Normal breath sounds, CTA, No accessory muscle use Cardiovascular: S1, S2, No murmur Abdomen/GI:Soft, non tender, Bowel sounds present Extremities/Musculoskelatal:normal inspection, no edema Neurologic/Psych:AAOX3, grossly no focal neurological deficits Skin: normal color, warm Lab data as noted below. ASSESSMENT & PLAN: Abdominal pain: Likely secondary to metastatic carcinoid CT abdomen: as below No bowel obstruction on xray Lipase/lactate levels:wnl On monthly Octreotide injections: Last dose Apr 19 Appreciate oncology help Continue Duragesic 12 g per hour patch Q72H Will add Tylenol 3: 1- 2 Q6H PRN for pain control if needed stool softener PRN for constipation GI consulted S/P IVF Will advance diet and plan to discharge if tolerates diet Metastatic Abdominal carcinoid: Monthly Sandostatin Oncology following Hypertension: Stable continue Lisinopril Allergic rhinitis: Benadryl PRN DVT PX: Lovenox Code status: FULL CODE Disposition: Plan to discharge home if tolerates diet today Follow up with [facility] in 1 week: Please call for appointment Follow up with oncology on May 17 PROCEDURES: CT ABD: 1. Slight interval decrease in size of several hepatic lesions since prior CT suggestive of a partial treatment response. 2. No change in size of the mesenteric orlando mass. Mild dilatation of several small bowel loops with associated tethering within the right lower quadrant. Contrast passes into the terminal ileum and therefore there is no evidence for high-grade small bowel obstruction. A low-grade partial small bowel obstruction would be difficult to exclude. Vital Signs: Date Time Temp Pulse Resp B/P Pulse Ox O2 Delivery O2 Flow Rate FiO2 04/28/16 09:44 53 04/28/16 09:05 95 Room Air 04/28/16 08:08 36.8 49 12 128/72 95 Room Air 04/28/16 08:00 Room Air 04/28/16 04:19 36.6 62 20 106/65 98 Room Air 04/28/16 00:00 Room Air 04/27/16 23:13 36.7 68 16 100/67 92 Room Air 04/27/16 20:00 Room Air 04/27/16 16:02 Room Air 04/27/16 15:14 37.0 66 20 130/81 95 Lab Results: Results Past 24 Hours Test 04/28/16 07:08 Range/Units Sodium Level 142 136-145 mmol/L Potassium Level 3.9 3.5-5.1 mmol/L Chloride Level 106 98-107 mmol/L Carbon Dioxide Level 30 21-32 mmol/L Anion Gap 6.0 3-11 mmol/L Blood Urea Nitrogen 8 7-18 mg/dl Creatinine 0.84 0.60-1.20 mg/dl Est Creatinine Clear Calc Drug Dose 59.2 ml/min Estimated GFR () 81.0 Estimated GFR (Non- 69.9 BUN/Creatinine Ratio 9.9 10-20 Random Glucose 99 70-99 mg/dl Calcium Level 8.5 8.5-10.1 mg/dl
[2016-04-28] MEDS ORDERED: CLC100X PO (13:40)
[2016-04-28] MEDS ORDERED: DRGTP12 TD (13:40)
--- NOTE | 2016-04-28 13:43 | Discharge Instructions ---
Discharge Instructions Admission Reason for Admission: Intractable Upper Abd Pain Discharge Discharge Diagnosis / Problem: Abdominal pain secondary to metastatic carcinoid Discharge Goals Goal(s): Decrease discomfort, Improve function Activity Recommendations Activity Limitations: resume your previous activity Exercise/Sports Limitations: as tolerated Driving or Machine Use: No driving until cleared by your PCP . Instructions / Follow-Up Instructions / Follow-Up Follow up with [facility] in 1 week Follow up with oncology on May 17 Current Hospital Diet Patient's current hospital diet: Regular Diet Discharge Diet Recommended Diet: Regular Diet Pending Studies Studies pending at discharge: no Medical Emergencies . Who to Call and When: Medical Emergencies: If at any time you feel your situation is an emergency, please call 911 immediately. . Non-Emergent Contact Non-Emergency issues call your: Primary Care Provider, Oncologist Call Non-Emergent contact if: you have a fever, your pain is not controlled, your pain is worsening, your pain is unusual for you, you have any medication questions Nausea, Vomiting . . "Provider Documentation" section prepared by Marlon Witt. VTE Core Measure Inpt VTE Proph given/why not?: Enoxaparin (Lovenox)SQ
--- NOTE | 2016-04-28 13:54 | Discharge Summary ---
Discharge Summary Date of Service Apr 28, 2016. 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 No free air or evidence of bowel obstruction. 2. No acute cardiopulmonary findings. 3. Moderate amount of stool within the rectum. CT abd: 1. Slight interval decrease in size of several hepatic lesions since prior CT suggestive of a partial treatment response. 2. No change in size of the mesenteric orlando mass. Mild dilatation of several small bowel loops with associated tethering within the right lower quadrant. Contrast passes into the terminal ileum and therefore there is no evidence for high-grade small bowel obstruction. A low-grade partial small bowel obstruction would be difficult to exclude. Consultations: Oncology Pending Studies/Follow-Up: Follow up with [facility] in 1 week Follow up with oncology on May 17 Medication Reconciliation New Medications: Docusate Sodium (Docusate Sodium) 100 Mg Cap 100 MG PO BID PRN for constipation for 30 Days, #60 CAP Fentanyl (Fentanyl) 12 Mcg Tdsy 12 MCG TD Q3D@1600 for 30 Days, #10 Continued Medications: Acetaminophen (Tylenol) 500 Mg Tab 500 MG PO Q8 PRN for Pain, TAB Cholecalciferol (Vitamin D-3) 2,000 Unit Tab 2000 UNITS PO QAM Diphenhydramine Hcl (Benadryl) 25 Mg Cap 25 MG PO DAILY Lisinopril (Lisinopril) 5 Mg Tab 2.5 MG PO QAM Admission Information HPI (per Admitting provider): 71 yo female with diffuse abdominal pain that began several hours ago. Quality described as "it just hurts" but does also say this was similar to abdominal pain she has had in the past related to her illness. She denies any issues with her bowels and last had a BM yesterday which was reportedly normal. She did not have vomiting prior to arrival, however, developed significant vomiting after a small dose of dilaudid, which of course made her abdominal pain worse. She denies any episodes of abdominal pain since her last admission to the hospital in Jan. She has had multiple imaging studies performed within that time, the latest being a CT c/a/p with IV contrast. This was performed 03/19/16 and reveals a primary ileal partially calcified carcinoid tumor with adjacent regional mesenteric mass, unchanged bilateral lobar hepatic mets, multiple pulmonary nodules and an extrahepatic biliary dilation measuring up to 1.4cm which tapers distally. She was diagnosed with abdominal carcinoid in Jan after being admitted and worked up for syncope, and was transferred to [facility] for further workup and treatment. She was found to have mets that were too extensive for surgery and she has been treated medically since that time with Octreotide injections. She is under the care of Dr. Molina for this, and the patient feels that ever since she was changed from the short-acting TID dosing to the long-acting once monthly dosing she has felt worse overall. Physical Exam (per Admitting): GEN: WNWD, in distress as she is very nauseated and continues to vomit, alert and appropriate HEENT: NC/AT, normal sclerae CARDIO: reg rate, S1/2 heard without m/g/r LUNGS: CTA bilaterally, no crackles, rales or wheezes, good diaphragmatic excursion ABD: soft, diffusely tender more around RUQ area, non-distended, +BS, no CVA tenderness EXTREMITY: RP and DP palpable 2+ bilat, no LE swelling or edema, extremities are warm and well-perfused NEURO: CN 2-12 grossly intact, limited exam due to excessive vomiting MUSC: moving all limbs equally, no gross focal deficits, strength appears to be intact. Limited exam due to vomiting and discomfort. SKIN: warm and dry Hospital Course Abdominal pain: Likely secondary to metastatic carcinoid CT abdomen: as below No bowel obstruction on xray Lipase/lactate levels:wnl On monthly Octreotide injections: Last dose Apr 19 Appreciate oncology help Continue Duragesic 12 g per hour patch Q72H Will add Tylenol 3: 1- 2 Q6H PRN for pain control if needed stool softener PRN for constipation GI consulted S/P IVF Will advance diet and plan to discharge if tolerates diet Metastatic Abdominal carcinoid: Monthly Sandostatin Oncology following Hypertension: Stable continue Lisinopril Allergic rhinitis: Benadryl PRN DVT PX: Lovenox Code status: FULL CODE Disposition: Plan to discharge home if tolerates diet today Follow up with [facility] in 1 week: Please call for appointment Follow up with oncology on May 17 PROCEDURES: CT ABD: 1. Slight interval decrease in size of several hepatic lesions since prior CT suggestive of a partial treatment response. 2. No change in size of the mesenteric orlando mass. Mild dilatation of several small bowel loops with associated tethering within the right lower quadrant. Contrast passes into the terminal ileum and therefore there is no evidence for high-grade small bowel obstruction. A low-grade partial small bowel obstruction would be difficult to exclude. Total time spent on discharge = This includes examination of the patient, discharge planning, medication reconciliation, and communication with other providers. 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 Instructions / Follow-Up Instructions / Follow-Up Follow up with [facility] in 1 week Follow up with oncology on May 17 Current Hospital Diet Patient's current hospital diet: Regular Diet Discharge Diet Recommended Diet: Regular Diet Pending Studies Studies pending at discharge: no Medical Emergencies . Who to Call and When: Medical Emergencies: If at any time you feel your situation is an emergency, please call 911 immediately. . Non-Emergent Contact Non-Emergency issues call your: Primary Care Provider, Oncologist Call Non-Emergent contact if: you have a fever, your pain is not controlled, your pain is worsening, your pain is unusual for you, you have any medication questions Nausea, Vomiting . . "Provider Documentation" section prepared by Marlon Witt. VTE Core Measure Inpt VTE Proph given/why not?: Enoxaparin (Lovenox)SQ <Electronically signed by Marlon Witt MD> Signed: 04/28/16 [id number] Signed: The status of this report is Signed * If report status is Draft, the document has not been finalized by the responsible provider.
[2016-04-28 13:59] VITALS: BP 128/72; PULSE 53; TEMP 36.8; O2SAT 95
[2016-04-30] MEDS ORDERED: FENTANYL PATCH REMOVE & WASTE SCH (15:59)
--- NOTE | 2016-05-02 13:41 | GASTROINTESTINAL CONSULTATION ---
DATE OF CONSULTATION: 04/27/2016 DATE OF CONSULTATION: 04/27/2016. REQUESTING PROVIDER: Dr. Comfort Calloway. CHIEF COMPLAINT: Abdominal pain. HISTORY OF PRESENT ILLNESS: Mrs. Garzon is a 71-year-old white female with a history of carcinoid. The patient had development of diffuse abdominal pain several hours prior to admission. She reports no melena or bright red blood per rectum and has not reported either diarrhea or constipation with essentially normal bowel movements up until yesterday. There was no nausea, fever. The patient had a similar event in January. In February 2016 the patient had a primary ileal partially calcified carcinoid tumor with adjacent renal mets as well as hepatic lesions. The patient is followed at [facility]. Locally her oncologist, Dr. Escalera had changed her dose of octreotide from the standard product 3 times daily to long acting monthly dose. The patient does not report any features of shortness of breath or significant flushing although at times the patient will describe that she will get slightly flushed. PAST MEDICAL HISTORY: Significant for carcinoid, angina, syncope. She has a prior history of hysterectomy, appendectomy, cholecystectomy and remote tonsillectomy and adenoidectomy. There is no relevant family history regarding her gastrointestinal issue. SOCIAL HISTORY: The patient denies tobacco or alcohol use. She is with children and lives with her significant other. ALLERGIES: SHE IS ALLERGIC TO LATEX, ASPIRIN, CELEBREX, ATIVAN, MORPHINE, CAFFEINE, VERSED. REVIEW OF SYSTEMS: Otherwise noncontributory based on 14-point exam. The patient denies odynophagia or dysphagia. Has not had nausea at home, although apparently did have some nausea and worsening of the discomfort after receiving her shot of Dilaudid. The patient denies dysuria or hematuria. PHYSICAL EXAMINATION: VITAL SIGNS: On admission, the patient is afebrile at 37.0, heart rate 90, respirations 20, blood pressure 178/112, 96% on room air. GENERAL: The patient is awake, alert and oriented x3. Sclerae are anicteric. She is accompanied by her significant other and grandchildren who provided also some of the history, although the patient herself was able to provide her own history as well. HEAD, EYES, EARS, NOSE, AND THROAT: Oral mucosa is moist. HEART: Normal S1, S2. LUNGS: Clear to auscultation without rales, rhonchi or wheezes. ABDOMEN: Soft, mildly tender in the periumbilical region without rebound or guarding. Location was not always reproducible on exam. There are positive bowel sounds. There is no evidence of ascites or shifting dullness. Neurologically, there are no focal abnormalities identified. EXTREMITIES: Without clubbing or cyanosis. There is trace edema bilaterally. RECTAL EXAMINATION: Deferred at this time. LABORATORY STUDIES: On admission showed a white count of 11.5, hemoglobin 13.9, MCV 89, platelets 322,000. INR was normal at 1.0. Electrolytes normal. BUN and creatinine 11 and 0.8, ALT 26, AST T24, alkaline phosphatase 142, total protein is normal at 8.1, lipase 98. Troponins less than 0.15. Chest x-ray and obstruction series revealed no evidence for bowel obstruction or free air. There is no acute lung features, although there is a moderate amount of stool in the rectum. IMPRESSION: The patient with a history of carcinoid metastatic to the liver with a relatively recent change of octreotide to 3 times daily standard dosing to once monthly. Perhaps the patient reports that there has been some decrease in the control of symptoms, but overall she has not been experiencing any features to suggest an early or partial bowel obstruction. There is no melena or bright red blood per rectum. I believe at this point, it is reasonable to continue with a liquid diet as tolerated and repeat a flat plate tomorrow morning. Pain medicine as required. There is no evidence for pancreatitis or biliary obstruction at this time given the normal liver panel. There is a slight elevation in alkaline phosphatase but may be explained by the liver lesions. We will follow with you. If you have any questions, please do not hesitate to contact the service. Thank you for allowing me to participate in this pleasant lady's care. CT IMAGING: Regarding her CT imaging from earlier this afternoon there is interval decrease in the size of hepatic lesions compared with the prior study. There is no evidence for high grade bowel obstruction, although there is mild dilation and some small bowel loops. Additionally, there is no interval change in the size of the mesenteric orlando mass. Mild biliary ductal dilation was unchanged compared to previous imaging and likely reflects prior cholecystectomy. There is no evidence of free air or portal venous gas. Based on these findings, the lack of change and the absence of a liver pattern suggesting a biliary obstruction at this time MRCP may not be helpful. However, if LFT changes over the next monitoring period then imaging of the biliary system with MRCP is reasonable.
== END 2016-04-28 15:45 | disposition home or self-care (01) | DRG 948 ==
LOC: ENRESERVDT → ENRESERVTM → C.EDB 18:57 → C.MS2W 22:57 → EDBEDREQ 23:03
PROVIDERS: ADMIT Hospitalist; ATTEND Internal Medicine
DX: G89.3 Neoplasm related pain (acute) (chronic) (principal); C7B.04 Secondary carcinoid tumors of peritoneum; C7A.012 Malignant carcinoid tumor of the ileum; R10.10 Upper abdominal pain, unspecified; R11.2 Nausea with vomiting, unspecified; I10 Essential (primary) hypertension; J30.9 Allergic rhinitis, unspecified; Z79.899 Other long term (current) drug therapy; Z51.81 Encounter for therapeutic drug level monitoring; Z86.79 Personal history of other diseases of the circulatory system

== ENCOUNTER → 2016-07-12 | Outpatient (CLI) | payer OTHER ==
[~2016-07-12] MED LIST changes: +CLC100X PO; +DRGTP12 TD; +HYDR2.5C37 TOP; +HYDR25SU20 PR; +OCTR50IN INJ
[2016-07-12 13:00] LABS: BASO % 0.8 %; BASO ABS # 0.06 K/uL (0-0.2); COMPLETE YES; EOS % 4.4 %; HEMATOCRIT 37.8 % (37-47); IG% 0.1 %; LYMPH ABS # 1.74 K/uL (1.2-3.4); MEAN CELL VOLUME 95.7 fL (80-100); MEAN CORPUSCULAR HEMOGLOBIN 30.9 pg (25-34); MEAN CORPUSCULAR HGB CONC 32.3 g/dl (32-36); MEAN PLATELET VOLUME 11.8 fL (7.4-10.4); MONO % 5.9 %; NEUT % 65.8 %; PLATELET COUNT 350 K/uL (130-400); RED BLOOD COUNT 3.95 M/uL (4.2-5.4); WHITE BLOOD COUNT 7.57 K/uL (4.8-10.8)
[2016-07-12 13:33] LABS: ALT/SGPT 18 U/L (12-78); BLOOD UREA NITROGEN 13 mg/dl (7-18); BUN/CREATININE RATIO 13.1 (10-20); CARBON DIOXIDE 26 mmol/L (21-32); CHLORIDE 108 mmol/L (98-107); CREATININE 0.98 mg/dl (0.60-1.20); GLUCOSE 92 mg/dl (70-99); POTASSIUM 3.6 mmol/L (3.5-5.1); SODIUM 142 mmol/L (136-145)
[2016-07-12 13:35] LABS: ALB/GLOB RATIO 0.9 (0.9-2); ALKALINE PHOSPHATASE 122 U/L (45-117); AST/SGOT 18 U/L (15-37)
[2016-07-12 13:47] LABS: CALCIUM 9.7 mg/dl (8.5-10.1)
== END | disposition home or self-care (01) ==
LOC: C.LABPBG 09:40
PROVIDERS: ATTEND Internal Medicine Hematology & Oncology
DX: C7A.019 Malignant carcinoid tumor of the small intestine, unspecified portion (principal)

== ENCOUNTER → 2016-10-05 | Outpatient (CLI) | payer OTHER ==
[2016-10-05 12:07] LABS: BASO % 0.4 %; BASO ABS # 0.03 K/uL (0-0.2); COMPLETE YES; EOS % 3.1 %; HEMATOCRIT 36.6 % (37-47); IG% 0.1 %; LYMPH ABS # 1.74 K/uL (1.2-3.4); MEAN CELL VOLUME 94.3 fL (80-100); MEAN CORPUSCULAR HEMOGLOBIN 30.7 pg (25-34); MEAN CORPUSCULAR HGB CONC 32.5 g/dl (32-36); MEAN PLATELET VOLUME 11.4 fL (7.4-10.4); MONO % 5.5 %; NEUT % 64.9 %; PLATELET COUNT 287 K/uL (130-400); RED BLOOD COUNT 3.88 M/uL (4.2-5.4); WHITE BLOOD COUNT 6.69 K/uL (4.8-10.8)
[2016-10-05 12:58] LABS: ALB/GLOB RATIO 0.9 (0.9-2); ALKALINE PHOSPHATASE 127 U/L (45-117); ALT/SGPT 17 U/L (12-78); AST/SGOT 15 U/L (15-37); BLOOD UREA NITROGEN 13 mg/dl (7-18); BUN/CREATININE RATIO 13.6 (10-20); CALCIUM 9.5 mg/dl (8.5-10.1); CARBON DIOXIDE 26 mmol/L (21-32); CHLORIDE 108 mmol/L (98-107); CREATININE 0.97 mg/dl (0.60-1.20); GLUCOSE 164 mg/dl (70-99); POTASSIUM 3.9 mmol/L (3.5-5.1); SODIUM 141 mmol/L (136-145)
== END | disposition home or self-care (01) ==
LOC: C.LABPBG 08:49
PROVIDERS: ATTEND Internal Medicine Hematology & Oncology
DX: C7A.019 Malignant carcinoid tumor of the small intestine, unspecified portion (principal)

== ENCOUNTER 2016-10-29 10:37 | Emergency (ER) | payer OTHER ==
[~2016-10-29] VITALS: Ht 160 cm; Wt 73.1 kg
[~2016-10-29 10:37] MED LIST changes: -HYDR2.5C37 TOP; -HYDR25SU20 PR; -OCTR50IN INJ
[2016-10-29 10:49] VITALS: TEMP 36.8; Ht 160 cm; Wt 73.1 kg
[2016-10-29] MEDS ORDERED: OCTR50IN INJ (11:00)
[2016-10-29] MEDS ORDERED: LIDOCAINE/EPINEPHRINE 1% 20 ML VIAL INFIL STA (11:10)
[2016-10-29] MEDS ORDERED: ANUSOL SUPP 1 EA PR STA (11:10)
--- NOTE | 2016-10-29 11:15 | EMERGENCY ROOM VISIT NOTE ---
History Report prepared by Jonathan: Cinthia Burrell Under the Supervision of: Dr. Deny Thayer M.D. First contact with patient: 11:05 Chief Complaint: OTHER COMPLAINT Stated Complaint: HEMROIDS AND PAIN History of Present Illness The patient is a 71 year old female who presents to the Emergency Room with complaints of persistent rectal pain that began several days ago. She currently rates her discomfort as an 8/10 in severity. The patient states that she has a history of previous hemorrhoids, noting that she had a hemorrhoidectomy in 1981. She states that her pain today feels similar to when she had hemorrhoids. The patient denies any constipation or diarrhea, noting that she moves her bowels normally four times per day. Source of History: patient Onset: several days ago Position: other (rectal) Symptom Intensity: 8/10 Timing: other (persistent) Associated Symptoms: No diarrhea Review of Systems See HPI for pertinent positives & negatives. A total of 10 systems reviewed and were otherwise negative. Past Medical & Surgical Medical Problems: (1) Carcinoid tumor of abdomen (2) Coronary vasospasm (3) Syncope Surgical Problems: (1) History of hysterectomy (2) History of tonsillectomy and adenoidectomy (3) S/P appendectomy (4) S/P cholecystectomy Family History Cancer Diabetes mellitus Heart disease Hypertension Lung disease Social History Smoking Status: Never Smoker Smokeless Tobacco Use: No Alcohol Use: none Drug Use: none Marital Status: Housing Status: lives with significant other Occupation Status: retired Current/Historical Medications Scheduled Cholecalciferol (Vitamin D-3), 2,000 UNITS PO QAM Hydrocortisone 2.5% (Rectal) (Anusol-Hc 2.5%), 1 APPLN TOP BID Hydrocortisone Acetate (Rectal (Anusol-Hc), 1 SUPP WA BID Lisinopril (Lisinopril), 2.5 MG PO QAM Octreotide Acetate (Sandostatin), Unknown Dose INJ MONTHLY Scheduled PRN Acetaminophen (Tylenol), 500 MG PO Q8 PRN for Pain Docusate Sodium (Docusate Sodium), 100 MG PO BID PRN for constipation Allergies Coded Allergies: Latex1 -Allergic Contact Dermititis (Verified Allergy, Mild, RASH, 04/26/16 ) Aspirin (Unverified Allergy, Unknown, "ASTHMA", 04/26/16) Celecoxib (Unverified Allergy, Unknown, "ASTHMA ATTACK", 04/26/16) Codeine (Unverified Allergy, Unknown, "FACE PUFFS UP", 04/26/16) Lorazepam (Unverified Allergy, Unknown, ANXIOUS, 04/26/16) Morphine (Unverified Allergy, Unknown, "FACE PUFFS UP", 04/26/16) Caffeine (Verified Adverse Reaction, Intermediate, HEADACHE, 04/26/16) Midazolam (Unverified Adverse Reaction, Intermediate, extreme anxiety, ) 2mg of versed given during heart catheterization, patient experienced extreme restlessness and anxiety. Uncoded Allergies: OPIOIDS (Adverse Reaction, Intermediate, HALLUCINATIONS, 12/05/15) Physical Exam Vital Signs Date Time Temp Pulse Resp B/P (MAP) Pulse Ox O2 Delivery O2 Flow Rate FiO2 10/29/16 11:56 68 18 160/96 97 10/29/16 10:49 36.8 85 16 144/96 96 Room Air Physical Exam GENERAL: Patient is a healthy-appearing well-nourished female HEAD: Normocephalic atraumatic EYES: Ocular movements intact pupils equal and react to light OROPHARYNX mucous membranes are moist no exudates present no erythema or edema present NECK: Supple no nuchal rigidity CHEST: Good equal expansion LUNGS: Clear and equal to auscultation CARDIAC: Normal S1 and S2 ABDOMEN: Soft nontender no guarding BACK: No CVA tenderness RECTAL: Large hemorrhoid present that is exquisitely tender. EXTREMITIES: No pain upon palpation normal muscle strength in all groups no clubbing cyanosis or edema NEURO: Patient is following commands and answering questions appropriately. Alert and oriented x3 Cranial Nerves 2-12 grossly intact Medical Decision & Procedures Medications Administered Medications (Trade) Dose Ordered Sig/Yahaira Route Start Time Stop Time Status Last Admin Dose Admin Lidocaine/ Epinephrine (Xylocaine/Epine 1% Inj) 20 ml ONE STAT INFIL 10/29/16 11:10 10/29/16 11:11 DC 10/29/16 11:10 20 ML Hard Fat/ Phenylephrine (Anusol Supp) 1 ea NOW STAT WA 10/29/16 11:10 10/29/16 11:11 DC 10/29/16 11:10 1 EA Procedure Hemorrhoid was injected with lidocaine with epi. The hemorrhoid was opened and blood was excised. The patient tolerated the procedure well. ED Course 1107: Past medical records reviewed. The patient was evaluated in room A10. A complete history and physical examination was performed. 1110: Ordered Anusol Supp 1 ea WA, Lidocaine/Epinephrine 20 ml INFIL. 1130: I excised the patients hemorrhoid at this time. See procedure note for further detail. I discussed all the exam findings with her and I discussed the treatment plan with her. She verbalized complete understanding and agreement. She is ready to go home. Medical Decision This is a 71-year-old female who presents emergency department complaining of hemorrhoid pain. The patient was given an Anusol suppository in the emergency department. She has a very large hemorrhoid which was injected with lidocaine with epinephrine. Repeat examination revealed much improvement the patient's symptoms. The hemorrhoid was excised. There is a minor amount of bleeding. I do feel that the patient as well as to be discharged home for follow-up with gastroenterology. I offered pain medication to the patient however she refused. Medication Reconcilliation Current Medication List: was personally reviewed by me Blood Pressure Screening Patient's blood pressure: Elevated blood pressure Blood pressure disposition: Referred to PCP Impression Primary Impression: Bleeding hemorrhoid Scribe Attestation The scribe's documentation has been prepared under my direction and personally reviewed by me in its entirety. I confirm that the note above accurately reflects all work, treatment, procedures, and medical decision making performed by me. Departure Information Dispostion Home / Self-Care Prescriptions Hydrocortisone Acetate (Rectal (ANUSOL-HC) 25 Mg Sup 1 SUPP WA BID for 14 Days, #28 SUPP 1 Refill Prov: Deny Thayer MD 10/29/16 Hydrocortisone 2.5% (Rectal) (ANUSOL-HC 2.5%) 2.5 % Cre 1 APPLN TOP BID for 7 Days, #30 GM 1 Refill Prov: Deny Thayer MD 10/29/16 Referrals No Doctor, Assigned (PCP) Adolfo Gray D.O. Forms HOME CARE DOCUMENTATION FORM, IMPORTANT VISIT INFORMATION, WORK / SCHOOL INSTRUCTIONS Patient Instructions ED Hemorrhoids, Hemorrhoid Surg, Hemorrhoids Thrombosed, Hydrocortisone suppositories, My [facility]
[2016-10-29] MEDS ORDERED: HYDR2.5C37 TOP (11:39)
[2016-10-29] MEDS ORDERED: HYDR25SU20 PR (11:39)
[2016-10-29 11:56] VITALS: BP 160/96; PULSE 68; O2SAT 97
== END 2016-10-29 11:47 | disposition home or self-care (01) ==
LOC: C.EDB 10:39 → C.EDA 11:47
DX: K64.4 Residual hemorrhoidal skin tags (principal); Z80.9 Family history of malignant neoplasm, unspecified; Z83.3 Family history of diabetes mellitus; Z82.49 Family history of ischemic heart disease and other diseases of the circulatory system; Z83.6 Family history of other diseases of the respiratory system; Z79.899 Other long term (current) drug therapy

== ENCOUNTER → 2016-12-27 | Outpatient (CLI) | payer OTHER ==
[~2016-12-27] MED LIST changes: -DIPH25CA37 PO; -DRGTP12 TD; +HYDR2.5C37 TOP; +HYDR25SU20 PR; +OCTR50IN INJ
[2016-12-27 13:19] LABS: BASO % 1.3 %; BASO ABS # 0.08 K/uL (0-0.2); COMPLETE YES; EOS % 3.2 %; HEMATOCRIT 39.7 % (37-47); IG% 0.2 %; LYMPH ABS # 1.56 K/uL (1.2-3.4); MEAN CELL VOLUME 93.6 fL (80-100); MEAN PLATELET VOLUME 12.3 fL (7.4-10.4); MONO % 5.1 %; NEUT % 65.2 %; PLATELET COUNT 287 K/uL (130-400); RED BLOOD COUNT 4.24 M/uL (4.2-5.4); WHITE BLOOD COUNT 6.24 K/uL (4.8-10.8)
[2016-12-27 14:51] LABS: ALT/SGPT 17 U/L (12-78); AST/SGOT 21 U/L (15-37); BLOOD UREA NITROGEN 13 mg/dl (7-18); BUN/CREATININE RATIO 13.1 (10-20); CALCIUM 9.2 mg/dl (8.5-10.1); CARBON DIOXIDE 25 mmol/L (21-32); CHLORIDE 107 mmol/L (98-107); CREATININE 0.98 mg/dl (0.60-1.20); GLUCOSE 104 mg/dl (70-99); SODIUM 140 mmol/L (136-145)
[2016-12-27 14:53] LABS: ALKALINE PHOSPHATASE 116 U/L (45-117)
== END | disposition home or self-care (01) ==
LOC: C.LABPBG 08:49
PROVIDERS: ATTEND Internal Medicine Hematology & Oncology
DX: C7A.019 Malignant carcinoid tumor of the small intestine, unspecified portion (principal)

== ENCOUNTER → 2017-01-07 | Outpatient (CLI) | payer OTHER ==
--- NOTE | 2017-01-07 13:52 | DIAGNOSTIC IMAGING REPORT ---
CT SCAN OF THE CHEST WITHOUT IV CONTRAST CLINICAL HISTORY: Metastatic carcinoid tumor. COMPARISON STUDY: Chest CT dated 12/15/2015. Chest x-ray dated 04/26/16. TECHNIQUE: CT scan of the thorax was performed from the thoracic inlet to the upper abdomen. Images are reviewed in the axial, sagittal, and coronal planes. IV contrast was not administered for this examination as per the referring clinician. Note that the examination was performed in suboptimal fashion without IV contrast. A dose lowering technique was utilized adhering to the principles of ALARA. CT DOSE: 265.01 mGy.cm FINDINGS: Thyroid: Imaged portions of the thyroid gland are normal in size and attenuation. Thoracic aorta: There is mild atherosclerotic calcification of the thoracic aorta, which is normal in caliber and demonstrates standard 3-vessel arch anatomy. Heart: The heart is normal in size and without pericardial effusion. Lungs and pleural spaces: There is no airspace consolidation or pleural effusion. Linear atelectasis versus scarring is noted in the right middle lobe and lingula. There is a 9 mm groundglass focus in the right lower lobe seen on image #223. 2 pleural-based nodules the right lung base are seen image #252 and measure up to 5 mm. A 5 mm left lower lobe pulmonary nodule is seen on image #215. The trachea and central airways are clear. Mediastinum: There is no mediastinal lymphadenopathy. Starr: Not well assessed without IV contrast. Axillae: There is no axillary lymphadenopathy. Upper abdomen: There is a tiny hiatal hernia. Low-attenuation hepatic lesions measure at least 5 cm and are consistent with metastatic disease. Skeletal structures: The skeletal structures are osteopenic. There is an 8 mm sclerotic focus in the body of T8 seen on image #146. No additional findings are concerning for lytic or blastic bone disease. IMPRESSION: 1. There is no definite evidence of intrathoracic metastatic disease. 2. Large hepatic metastases are identified. 3. A 9 mm groundglass focus in the right lower lobe as well as bilateral lower lobe nodules are similar in appearance to the 12/15/2015 examination. Continued attention at follow-up is recommended. 4. No airspace consolidation or pleural effusion is ill-defined. 5. An 8 mm indeterminant sclerotic focus in the body of T8 is unchanged from previous and may represent a bone island. No additional bone lesions are suggested. Electronically signed by: Arsalan Matthew M.D. 01/07/2017 1:51 PM Dictated Date/Time: 01/07/2017 1:44 PM
== END | disposition home or self-care (01) ==
LOC: C.CTS 13:32
PROVIDERS: ATTEND Internal Medicine Hematology & Oncology
DX: C7A.019 Malignant carcinoid tumor of the small intestine, unspecified portion (principal)

== ENCOUNTER → 2017-04-04 | Outpatient (CLI) | payer OTHER ==
[2017-04-04 12:41] LABS: BASO % 0.7 %; BASO ABS # 0.04 K/uL (0-0.2); EOS % 3.6 %; EOS ABS # 0.22 K/uL (0-0.5); HEMATOCRIT 38.1 % (37-47); HEMOGLOBIN 12.6 g/dL (12.0-16.0); IG# 0.01 K/uL (0.00-0.02); LYMPH % 24.3 %; LYMPH ABS # 1.49 K/uL (1.2-3.4); MEAN CELL VOLUME 92.5 fL (80-100); MEAN CORPUSCULAR HEMOGLOBIN 30.6 pg (25-34); MEAN CORPUSCULAR HGB CONC 33.1 g/dl (32-36); MEAN PLATELET VOLUME 11.6 fL (7.4-10.4); MONO % 6.2 %; MONO ABS # 0.38 K/uL (0.11-0.59); PLATELET COUNT 300 K/uL (130-400); RED CELL DISTRIBUTION WIDTH CV 14.4 % (11.5-14.5); RED CELL DISTRIBUTION WIDTH SD 48.8 fL (36.4-46.3); WHITE BLOOD COUNT 6.14 K/uL (4.8-10.8)
[2017-04-04 13:40] LABS: ALBUMIN 3.5 gm/dl (3.4-5.0); ALT/SGPT 16 U/L (12-78); AST/SGOT 17 U/L (15-37); BLOOD UREA NITROGEN 14 mg/dl (7-18); CARBON DIOXIDE 26 mmol/L (21-32); CREATININE 0.98 mg/dl (0.60-1.20); GLUCOSE 96 mg/dl (70-99); SODIUM 139 mmol/L (136-145)
[2017-04-04 13:42] LABS: ALKALINE PHOSPHATASE 117 U/L (45-117); TOTAL PROTEIN 7.5 gm/dl (6.4-8.2)
== END | disposition home or self-care (01) ==
LOC: C.LABPBG 10:00
PROVIDERS: ATTEND Internal Medicine Hematology & Oncology
DX: C7A.019 Malignant carcinoid tumor of the small intestine, unspecified portion (principal)

== ENCOUNTER 2017-06-09 12:20 | Inpatient (IN) | payer OTHER ==
[~2017-06-09] VITALS: Ht 162.6 cm; Wt 73.1 kg
[~2017-06-09 12:20] MED LIST changes: -ACET-1256 PO; -CHOL200027 PO; -LSN5 PO; -OCTR50IN INJ
[2017-06-09] MEDS ORDERED: ONDANSETRON INJ 2 MG/ML 2 ML VIAL IV STA ×2 (12:32→13:57)
[2017-06-09] MEDS ORDERED: SODIUM CHLORIDE 0.9% 1000ML 1,000 ML IV STA (12:32)
--- NOTE | 2017-06-09 12:37 | EMERGENCY ROOM VISIT NOTE ---
History Report prepared by Jonathan: Hu Dhaliwal Under the Supervision of: Dr. Leandro Valenzuela M.D. First contact with patient: 12:27 Chief Complaint: VOMITING Stated Complaint: WEAK, VOMITING, VOMIT IS BLACK AND GREEN History of Present Illness The patient is a 72 year old female who presents to the Emergency Room with complaints of episodes of vomiting that started around an hour ago. 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 The patient notes that she has been nauseous, and her vomit started off as black this morning, and on the way here became green. The patient says that she only had abdominal pain when she was actively vomiting. The patient states that she was laying in bed when the vomiting started. She adds that she has been a bit short of breath. The patient states that she follows-up with Dr. Escalera for her cancer, and is supposed to have a CT next week. She is getting Octreotide, and is due for another one in 4 days. She states that it cannot be operated on because it is too advanced. She denies any chest pain, or any recent hematochezia or melena. Source of History: patient Onset: An hour ago Position: other (global) Symptom Intensity: vomit is black and green Quality: other (vomiting) Timing: other (episodes) Associated Symptoms: + SOB, + nausea, + abdominal pain, No chest pain, No melena, No hematochezia Review of Systems See HPI for pertinent positives and negatives. A total of ten systems were reviewed and were otherwise negative. Past Medical & Surgical Medical Problems: (1) Carcinoid tumor of abdomen (2) Coronary vasospasm (3) Syncope Surgical Problems: (1) History of hysterectomy (2) History of tonsillectomy and adenoidectomy (3) S/P appendectomy (4) S/P cholecystectomy Family History Cancer Diabetes mellitus Heart disease Hypertension Lung disease Social History Smoking Status: Never Smoker Alcohol Use: none Drug Use: none Marital Status: Housing Status: lives with significant other Occupation Status: retired Current/Historical Medications Scheduled Cholecalciferol (Vitamin D-3), 2,000 UNITS PO QAM Lisinopril (Lisinopril), 2.5 MG PO QAM Octreotide Acetate (Sandostatin), Unknown Dose INJ MONTHLY [Nerve Tonic], 1 TAB PO DAILY Scheduled PRN Acetaminophen (Tylenol), 500 MG PO Q8 PRN for Pain Diphenhydramine Hcl (Benadryl Allergy), 50 MG PO DAILY PRN for ALLGERIES Docusate Sodium (Docusate Sodium), 100 MG PO BID PRN for constipation Allergies Coded Allergies: Aspirin (Verified Allergy, Intermediate, "ASTHMA", 06/09/17) Celecoxib (Verified Allergy, Intermediate, "ASTHMA ATTACK", 06/09/17) Codeine (Verified Allergy, Intermediate, "FACE PUFFS UP", 06/09/17) Morphine (Verified Allergy, Intermediate, "FACE PUFFS UP", 06/09/17) Latex1 -Allergic Contact Dermititis (Verified Allergy, Mild, RASH, 06/09/17 ) Caffeine (Verified Adverse Reaction, Intermediate, HEADACHE, 06/09/17) Midazolam (Unverified Adverse Reaction, Intermediate, extreme anxiety, 02/14) 2mg of versed given during heart catheterization, patient experienced extreme restlessness and anxiety. Lorazepam (Verified Adverse Reaction, Mild, ANXIOUS, 06/09/17) Uncoded Allergies: OPIOIDS (Adverse Reaction, Intermediate, HALLUCINATIONS, 12/05/15) Physical Exam Vital Signs Date Time Temp Pulse Resp B/P (MAP) Pulse Ox O2 Delivery O2 Flow Rate FiO2 06/09/17 14:41 73 18 138/87 99 Room Air 06/09/17 14:26 99 Room Air 06/09/17 13:25 75 18 182/82 99 Room Air 06/09/17 12:24 36.8 78 20 145/105 99 Room Air Physical Exam Physical Exam GENERAL: She is oriented to person, place, and time. She appears well- developed and well-nourished. She looks in distress. She is vomiting bile. HENT: Exam performed. Head: Normocephalic and atraumatic. Right Ear: External ear normal. No mastoid tenderness. Left Ear: External ear normal. No mastoid tenderness. Mouth/Throat: The oropharynx is clear. She has dry mucous membranes. No trismus in the jaw. No dental abscesses or uvula swelling. No oropharyngeal exudate or tonsillar abscesses. ____ EYES: Conjunctivae and EOM are normal. Pupils are equal, round, and reactive to light. Right eye exhibits no discharge. Left eye exhibits no discharge. No scleral icterus. ____ NECK: Normal range of motion. Neck supple. No JVD present. No spinous process tenderness present. No carotid bruit present. No rigidity. No tracheal deviation and normal range of motion present. No Brudzinski's sign and no Kernig 's sign noted. ____ CV: Normal rate, regular rhythm, normal heart sounds and intact distal pulses. There is no peripheral edema. Palpable radial pulses bue. ____ PULM/CHEST: Effort normal and breath sounds normal. No respiratory distress. No stridor. She has no wheezes. She has no rales. Chest Wall: Shed exhibits no tenderness. ____ ABD: The abdomen is soft. Pain on palpation of the abdomen. Bowel sounds are normal. She has no distension. No mass is present. There is no tenderness. There is no rebound, no guarding, no Cristina's sign and no tenderness at McBurney 's point. Rovsig negative MUSC/SKEL: Normal range of motion. There is no peripheral edema, tenderness or deformity. LYMPH: No cervical adenopathy. ____ NEURO: She is alert and oriented to person, place, and time. She has normal strength. No cranial nerve deficit or sensory deficit. Coordination and gait normal. GCS eye subscore is 4. GCS verbal subscore is 5. GCS motor subscore is 6. Cerebellar tests wnl. ____ SKIN: Skin is warm and dry. She is not diaphoretic. ____ PSYCH: She has a normal mood and affect. She behavior is normal. Judgment and thought content normal. ____ Medical Decision & Procedures ER Provider Diagnostic Interpretation: CT: Radiology results as stated below per my review and radiologist interpretation ABDOMEN AND PELVIS CT WITH IV CONTRAST CT DOSE: 1093.58 mGycm HISTORY: Acute generalized abdominal pain with weakness . History of carcinoid tumor with hepatic metastasis abdominal pain vomitting green/black TECHNIQUE: Multiaxial CT images of the abdomen and pelvis were performed following the use of intravenous contrast. A dose lowering technique was utilized adhering to the principles of ALARA. COMPARISON STUDY: CT abdomen and pelvis 04/27/2016, liver MRI 01/03/2017, CT chest 01/07/2017. FINDINGS: 7 mm groundglass nodule of the right lower lobe seen on image 12 of series 3 which appears similar to slightly decreased in size from comparison chest CT, previously measuring 9 mm. Mild dependent subsegmental bibasilar atelectasis. There are 2 solid nodules of the basal right lower lobe measuring up to 3 mm, image 45 series 3 which are unchanged. No pneumatosis or pneumoperitoneum identified. Imaged inferior cardiac chambers are unremarkable. Metastatic lesions of the liver are redemonstrated, largest of which involves the posterior right hepatic lobe measuring 5.5 x 4.5 cm, previously measuring 4.2 x 3.8 cm. Anterior right hepatic lobe lesion measuring 2.9 cm on image 86 series 3 previously measured 2.1 cm. Prior cholecystectomy. Spleen, pancreas and adrenal glands are unremarkable. Kidneys, ureters and bladder are within normal limits. Prior hysterectomy. Multiple phleboliths of the pelvis. Moderate atherosclerosis of the aorta without aneurysm. No bulky adenopathy. No bowel obstruction identified. There is nondistention and wall thickening involving the majority of the colon without significant pericolonic inflammatory stranding identified. Heterogeneous spiculated mass of the right lower quadrant mesentery is again noted, 1.2 x 0.4 cm on image 228 series 3, previously 3.6 x 1.6 cm. There is tethering involving multiple loops of small bowel within the abdominal right lower quadrant. Soft tissue lesions of the gluteal tissues are seen measuring up to 1.8 x 2.1 cm on the left and 2.2 cm on the right which contains central air foci. These may reflect areas of prior injection site. Subcortical cystic changes about the bilateral hips. No new suspicious bony lesions identified. IMPRESSION: 1. Unchanged mesenteric [place] mass with stable appearing tethering involving multiple adjacent loops of small bowel. 2. Enlarged size of multiple hepatic mass lesions compatible with progressive hepatic metastasis. 3. Nondistention with wall thickening involves the majority of the colon. A mild colitis is also within the differential, however felt to be less likely. 4. Unchanged scattered solid nodules of the right lung base. 5. Prior cholecystectomy. Electronically signed by: Apollo Dominguez M.D. 06/09/2017 1:39 PM Dictated Date/Time: 06/09/2017 1:22 PM Laboratory Results 06/09/17 12:37 Red Blood Count 4.36, Mean Corpuscular Volume 89.2, Mean Corpuscular Hemoglobin 30.7, Mean Corpuscular Hemoglobin Concent 34.4, Mean Platelet Volume 10.8, Neutrophils (%) (Auto) 80.2, Lymphocytes (%) (Auto) 10.0, Monocytes (%) (Auto) 9.2, Eosinophils (%) (Auto) 0.0, Basophils (%) (Auto) 0.4, Neutrophils # (Auto) 4.17, Lymphocytes # (Auto) 0.52, Monocytes # (Auto) 0.48, Eosinophils # (Auto) 0.00, Basophils # (Auto) 0.02 06/09/17 12:37 Test 06/09/17 12:37 06/09/17 12:46 06/09/17 14:00 White Blood Count 5.20 K/uL (4.8-10.8) Red Blood Count 4.36 M/uL (4.2-5.4) Hemoglobin 13.4 g/dL (12.0-16.0) Hematocrit 38.9 % (37-47) Mean Corpuscular Volume 89.2 fL (80-100) Mean Corpuscular Hemoglobin 30.7 pg (25-34) Mean Corpuscular Hemoglobin Concent 34.4 g/dl (32-36) Platelet Count 304 K/uL (130-400) Mean Platelet Volume 10.8 fL (7.4-10.4) Neutrophils (%) (Auto) 80.2 % Lymphocytes (%) (Auto) 10.0 % Monocytes (%) (Auto) 9.2 % Eosinophils (%) (Auto) 0.0 % Basophils (%) (Auto) 0.4 % Neutrophils # (Auto) 4.17 K/uL (1.4-6.5) Lymphocytes # (Auto) 0.52 K/uL (1.2-3.4) Monocytes # (Auto) 0.48 K/uL (0.11-0.59) Eosinophils # (Auto) 0.00 K/uL (0-0.5) Basophils # (Auto) 0.02 K/uL (0-0.2) RDW Standard Deviation 46.3 fL (36.4-46.3) RDW Coefficient of Variation 14.2 % (11.5-14.5) Immature Granulocyte % (Auto) 0.2 % Immature Granulocyte # (Auto) 0.01 K/uL (0.00-0.02) Prothrombin Time 10.3 SECONDS (9.0-12.0) Prothromb Time International Ratio 1.0 (0.9-1.1) Activated Partial Thromboplast Time 25.7 SECONDS (21.0-31.0) Partial Thromboplastin Ratio 1.0 Est Creatinine Clear Calc Drug Dose 40.4 ml/min Estimated GFR () 50.7 Estimated GFR (Non- 43.8 BUN/Creatinine Ratio 10.0 (10-20) Calcium Level 9.2 mg/dl (8.5-10.1) Total Bilirubin 0.6 mg/dl (0.2-1) Direct Bilirubin 0.1 mg/dl (0-0.2) Aspartate Amino Transf (AST/SGOT) 23 U/L (15-37) Alanine Aminotransferase (ALT/SGPT) 19 U/L (12-78) Alkaline Phosphatase 130 U/L (45-117) Ammonia < 10.0 umol/L (11-32) Total Protein 8.0 gm/dl (6.4-8.2) Albumin 3.9 gm/dl (3.4-5.0) Lipase 109 U/L (73-393) Bedside Hemoglobin 13.3 g/dl (12.0-16.0) Bedside Hematocrit 39 % (37-47) Bedside Sodium 139 mEq/L (135-144) Bedside Potassium 3.5 mEq/L (3.3-5.0) Bedside Chloride 101 mEq/L (101-112) Bedside Total CO2 22 mEq/l (24-31) Anion Gap 21.0 mmol/L (16-25) Bedside Blood Urea Nitrogen 12 mg/dl (7-18) Bedside Creatinine 1.0 mg/dl (0.6-1.3) Bedside Glucose (other) 170 mg/dl (70-99) Bedside Ionized Calcium (Bryan) 1.05 mmol/l (1.12-1.32) Urine Color YELLOW Urine Appearance CLEAR (CLEAR) Urine pH 7.0 (4.5-7.5) Urine Specific [place] 1.031 (1.000-1.030) Urine Protein NEG (NEG) Urine Glucose (UA) NEG (NEG) Urine Ketones TRACE (NEG) Urine Occult Blood TRACE (NEG) Urine Nitrite NEG (NEG) Urine Bilirubin NEG (NEG) Urine Urobilinogen NEG (NEG) Urine Leukocyte Esterase LARGE (NEG) Urine WBC (Auto) 5-10 /hpf (0-5) Urine RBC (Auto) 0-4 /hpf (0-4) Urine Hyaline Casts (Auto) 1-5 /lpf (0-5) Urine Epithelial Cells (Auto) >30 /lpf (0-5) Urine Bacteria (Auto) NEG (NEG) Laboratory results reviewed by me Medications Administered Medications (Trade) Dose Ordered Sig/Yahaira Route Start Time Stop Time Status Last Admin Dose Admin Sodium Chloride 1,000 ml @ 125 mls/hr Q8H STAT IV 06/09/17 12:32 06/09/17 15:54 DC 06/09/17 12:55 125 MLS/HR Ondansetron HCl (Zofran Inj) 4 mg NOW STAT IV 06/09/17 12:32 06/09/17 12:33 DC 06/09/17 12:55 4 MG Ondansetron HCl (Zofran Inj) 4 mg NOW STAT IV 06/09/17 13:57 06/09/17 13:58 DC 06/09/17 14:00 4 MG ED Course 1229: The patient was evaluated in room A10. A complete history and physical exam was performed. 1232: Zofran Inj 4 mg IV, NSS 1000 ml @ 125 mls/hr IV. 1401: Labs within normal limits with the exception of elevated lactic acid of 3.4. Urine is contaminated sample. Imaging shows no acute findings. Lactic acidemia is thought to be due to the patient's dehydration due to repeated vomiting. Upon reexamination, the patient was continuing to have dry heaves. Repeats order of Zofran ordered.. I discussed the test results and treatment plan with her. She expressed understanding and agreement. The patient will be evaluated for further management. Discussed the patient's case with Maru TORRES [facility] internal medicine. The patient will be evaluated for further treatment and disposition. Medical Decision Labs within normal limits with the exception of elevated lactic acid of 3.4. Urine is contaminated sample. Imaging shows no acute findings. Lactic acidemia is thought to be due to the patient's dehydration due to repeated vomiting. Upon reexamination, the patient was continuing to have dry heaves. Repeats order of Zofran ordered.. I discussed the test results and treatment plan with her. She expressed understanding and agreement. The patient will be evaluated for further management. [facility]iscussed the [facility]'s [facility]. The patient will be evaluated for further treatment and disposition. Medication Reconcilliation Current Medication List: was personally reviewed by me Blood Pressure Screening Patient's blood pressure: Elevated blood pressure Referred to hospitalist. Consults Time Called: 1400 Consulting Physician: Maru Hoffman internal medicine Returned Call: [phone] Discussed the patient's case with Maru TORRES [facility] internal medicine. The patient will be evaluated for further treatment and disposition. Impression Primary Impression: Intractable nausea and vomiting Additional Impressions: Bilious vomiting Dehydration Lactic acidemia Scribe Attestation The scribe's documentation has been prepared under my direction and personally reviewed by me in its entirety. I confirm that the note above accurately reflects all work, treatment, procedures, and medical decision making performed by me. The chart was completed utilizing [employer] Speech voice recognition software. Grammatical errors, random word insertions, pronoun errors, and incomplete sentences are an occasional consequence of this system due to software limitations, ambient noise, and hardware issues. Any formal questions or concerns about the content, text, or information contained within the body of this dictation should be directly addressed to the physician for clarification. Departure Information Dispostion Being Evaluated By Hospitalist Referrals Kerri Schulz PA-C (PCP) Patient Instructions My [facility] Problem Qualifiers Primary Impression: Intractable nausea and vomiting Vomiting type: unspecified Qualified Codes: R11.2 - Nausea with vomiting, unspecified Additional Impressions: Bilious vomiting Nausea presence: with nausea Qualified Codes: R11.14 - Bilious vomiting
[2017-06-09] MEDS ORDERED: OPTIRAY 320 IV PRN (12:45)
[2017-06-09 12:50] LABS: BASO % 0.4 %; BASO ABS # 0.02 K/uL (0-0.2); HEMATOCRIT 38.9 % (37-47); HEMOGLOBIN 13.4 g/dL (12.0-16.0); IG# 0.01 K/uL (0.00-0.02); LYMPH ABS # 0.52 K/uL (1.2-3.4); MEAN CELL VOLUME 89.2 fL (80-100); MEAN CORPUSCULAR HEMOGLOBIN 30.7 pg (25-34); MEAN CORPUSCULAR HGB CONC 34.4 g/dl (32-36); MEAN PLATELET VOLUME 10.8 fL (7.4-10.4); MONO % 9.2 %; MONO ABS # 0.48 K/uL (0.11-0.59); NEUT % 80.2 %; NEUT ABS # 4.17 K/uL (1.4-6.5); PLATELET COUNT 304 K/uL (130-400); RED CELL DISTRIBUTION WIDTH CV 14.2 % (11.5-14.5); RED CELL DISTRIBUTION WIDTH SD 46.3 fL (36.4-46.3)
[2017-06-09 12:56] LABS: ISTAT IONIZED CALCIUM 1.05 mmol/l (1.12-1.32); ISTAT POTASSIUM 3.5 mEq/L (3.3-5.0)
[2017-06-09 13:00] LABS: PTT PATIENT 25.7 SECONDS (21.0-31.0)
[2017-06-09 13:06] LABS: ALBUMIN 3.9 gm/dl (3.4-5.0); CALCIUM 9.2 mg/dl (8.5-10.1); CREATININE 1.23 mg/dl (0.60-1.20); POTASSIUM 3.6 mmol/L (3.5-5.1)
[2017-06-09] MEDS ORDERED: NERVE TONIC PO (13:17)
[2017-06-09] MEDS ORDERED: [UNRECOGNIZED DRUG - CODE] INJ (13:17)
--- NOTE | 2017-06-09 13:40 | DIAGNOSTIC IMAGING REPORT ---
ABDOMEN AND PELVIS CT WITH IV CONTRAST CT DOSE: 1093.58 mGycm HISTORY: Acute generalized abdominal pain with weakness . History of carcinoid tumor with hepatic metastasis abdominal pain vomitting green/black TECHNIQUE: Multiaxial CT images of the abdomen and pelvis were performed following the use of intravenous contrast. A dose lowering technique was utilized adhering to the principles of ALARA. COMPARISON STUDY: CT abdomen and pelvis 04/27/2016, liver MRI 01/03/2017, CT chest 01/07/2017. FINDINGS: 7 mm groundglass nodule of the right lower lobe seen on image 12 of series 3 which appears similar to slightly decreased in size from comparison chest CT, previously measuring 9 mm. Mild dependent subsegmental bibasilar atelectasis. There are 2 solid nodules of the basal right lower lobe measuring up to 3 mm, image 45 series 3 which are unchanged. No pneumatosis or pneumoperitoneum identified. Imaged inferior cardiac chambers are unremarkable. Metastatic lesions of the liver are redemonstrated, largest of which involves the posterior right hepatic lobe measuring 5.5 x 4.5 cm, previously measuring 4.2 x 3.8 cm. Anterior right hepatic lobe lesion measuring 2.9 cm on image 86 series 3 previously measured 2.1 cm. Prior cholecystectomy. Spleen, pancreas and adrenal glands are unremarkable. Kidneys, ureters and bladder are within normal limits. Prior hysterectomy. Multiple phleboliths of the pelvis. Moderate atherosclerosis of the aorta without aneurysm. No bulky adenopathy. No bowel obstruction identified. There is nondistention and wall thickening involving the majority of the colon without significant pericolonic inflammatory stranding identified. Heterogeneous spiculated mass of the right lower quadrant mesentery is again noted, 1.2 x 0.4 cm on image 228 series 3, previously 3.6 x 1.6 cm. There is tethering involving multiple loops of small bowel within the abdominal right lower quadrant. Soft tissue lesions of the gluteal tissues are seen measuring up to 1.8 x 2.1 cm on the left and 2.2 cm on the right which contains central air foci. These may reflect areas of prior injection site. Subcortical cystic changes about the bilateral hips. No new suspicious bony lesions identified. IMPRESSION: 1. Unchanged mesenteric [place] mass with stable appearing tethering involving multiple adjacent loops of small bowel. 2. Enlarged size of multiple hepatic mass lesions compatible with progressive hepatic metastasis. 3. Nondistention with wall thickening involves the majority of the colon. A mild colitis is also within the differential, however felt to be less likely. 4. Unchanged scattered solid nodules of the right lung base. 5. Prior cholecystectomy. Electronically signed by: Apollo Dominguez M.D. 06/09/2017 1:39 PM Dictated Date/Time: 06/09/2017 1:22 PM
[2017-06-09 14:26] VITALS: O2SAT 99; BMI 27.4
[2017-06-09] MEDS ORDERED: POLYETHYLENE (MIRALAX) 17 GM PACK PO PRN (15:15)
[2017-06-09] MEDS ORDERED: ONDANSETRON INJ 2 MG/ML 2 ML VIAL IV PRN (15:30)
[2017-06-09] MEDS ORDERED: PROMETHAZINE HCL INJ 25 MG in SODIUM CHLORIDE 0.9% 50ML 50 ML IV PRN (15:30)
[2017-06-09 16:00] VITALS: BP 171/94; PULSE 70; TEMP 37.3; O2SAT 99
[2017-06-09] MEDS ORDERED: SODIUM CHLORIDE 0.9% 1000ML 1,000 ML IV SCH (16:00)
--- NOTE | 2017-06-09 16:25 | History and Physical ---
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 Patient states yesterday for dinner 8 spaghetti and meatballs. Reports 2 AM today started with nausea and vomiting. Reports vomited approximately 10 times. One emesis looked very dark and black which prompted patient to come to ER. Since emesis has been yellow. Denies racquel blood. Denies diarrhea or constipation. Last BM in middle of night reported formed stool. Patient follows with Dr. Escalera and has been receiving octreotide monthly. Patient reports no further interventions can be done. She states usually dose not have nausea or vomiting. Denies any noted fever or chills or abdominal pain. Reports she is sometimes short of breath which she relates to allergies and when takes Benadryl symptoms resolve. Denies any worsening. Denies others with N/V/D symptoms. Denies fever/chills, diaphoresis, melena, hematochezia, MARKS, dizziness , syncope, vision changes, neck pain, CP, orthopnea, palpitations, sore throat, choking, otalgia, rhinorrhea, abdominal pain, paresthesias, weakness, extremity weakness, extremity edema, rashes, urinary symptoms. Past Medical/Surgical History Medical Problems: (1) Carcinoid tumor of abdomen Status: Chronic (2) Coronary vasospasm Status: Chronic (3) Syncope Status: Resolved Surgical Problems: (1) History of hysterectomy Status: Chronic (2) History of tonsillectomy and adenoidectomy Status: Chronic (3) S/P appendectomy Status: Chronic (4) S/P cholecystectomy Status: Chronic Family History Cancer Diabetes mellitus Heart disease Hypertension Lung disease Social History Smoking Status: Never Smoker Smokeless Tobacco Use: No Alcohol Use: none Drug Use: none Marital Status: Housing status: lives with significant other Occupational Status: retired Immunizations History of Influenza Vaccine: Yes Influenza Vaccine Date: Sep 29, 2015 History of Tetanus Vaccine?: Yes Tetanus Immunization Date: Jan 25, 2010 History of Pneumococcal: Yes Pneumococcal Date: Jan 25, 2010 History of Hepatitis B Vaccine: No Allergies Coded Allergies: Aspirin (Verified Allergy, Intermediate, "ASTHMA", 06/09/17) Celecoxib (Verified Allergy, Intermediate, "ASTHMA ATTACK", 06/09/17) Codeine (Verified Allergy, Intermediate, "FACE PUFFS UP", 06/09/17) Morphine (Verified Allergy, Intermediate, "FACE PUFFS UP", 06/09/17) Latex1 -Allergic Contact Dermititis (Verified Allergy, Mild, RASH, 06/09/17 ) Caffeine (Verified Adverse Reaction, Intermediate, HEADACHE, 06/09/17) Midazolam (Unverified Adverse Reaction, Intermediate, extreme anxiety, 02/14) 2mg of versed given during heart catheterization, patient experienced extreme restlessness and anxiety. Lorazepam (Verified Adverse Reaction, Mild, ANXIOUS, 06/09/17) Uncoded Allergies: OPIOIDS (Adverse Reaction, Intermediate, HALLUCINATIONS, 12/05/15) Home Medications Scheduled Cholecalciferol (Vitamin D-3), 2,000 UNITS PO QAM Lisinopril (Lisinopril), 2.5 MG PO QAM Octreotide Acetate (Sandostatin), Unknown Dose INJ MONTHLY [Nerve Tonic], 1 TAB PO DAILY Scheduled PRN Acetaminophen (Tylenol), 500 MG PO Q8 PRN for Pain Diphenhydramine Hcl (Benadryl Allergy), 50 MG PO DAILY PRN for ALLGERIES Docusate Sodium (Docusate Sodium), 100 MG PO BID PRN for constipation Review of Systems Constitutional: No fever, No chills, No sweats, No weight loss, No weakness, No fatigue Eyes: No worsening of vision, No eye pain, No diplopia ENT: No hearing loss, No unusual epistaxis, No tinnitus, No trouble swallowing Respiratory: No cough, No sputum, No wheezing, No hemoptysis Cardiovascular: No chest pain, No orthopnea, No PND, No edema, No palpitations Abdomen: + problem reported (See HPI) Musculoskeletal: No joint pain, No muscle pain, No swelling, No calf pain Genitourinary - Female: No dysuria, No urinary frequency, No urinary urgency, No urinary incontinence, No urinary retention, No hematuria Neurologic: No memory loss, No numbness/tingling Endocrine: No excessive thirst, No excessive urination Integumentary: No rash, No itch Physical Exam Vital Signs Date Time Temp Pulse Resp B/P (MAP) Pulse Ox O2 Delivery O2 Flow Rate FiO2 06/09/17 14:41 73 18 138/87 99 Room Air 06/09/17 14:26 99 Room Air 06/09/17 13:25 75 18 182/82 99 Room Air 06/09/17 12:24 36.8 78 20 145/105 99 Room Air General Appearance: WD/WN, no apparent distress (Sitting upright in bed) Head: normocephalic, atraumatic Eyes: normal inspection, sclerae normal ENT: hearing grossly normal, pharynx normal, + pertinent finding (Mucous membranes slightly dry) Neck: supple, no JVD, trachea midline Respiratory/Chest: lungs clear, normal breath sounds, no respiratory distress Cardiovascular: regular rate, rhythm, no murmur, normal peripheral pulses Abdomen/GI: normal bowel sounds, soft, + pertinent finding (Tenderness to palpation at this time) Back: no CVA tenderness Extremities/Musculoskelatal: no calf tenderness, normal capillary refill, no pedal edema, normal range of motion Neurologic/Psych: alert, normal mood/affect, oriented x 3 Skin: normal color, warm/dry Diagnostics Laboratory Results Results Past 24 Hours Test 06/09/17 12:37 06/09/17 12:46 06/09/17 14:00 Range/Units White Blood Count 5.20 4.8-10.8 K/uL Red Blood Count 4.36 4.2-5.4 M/uL Hemoglobin 13.4 12.0-16.0 g/dL Hematocrit 38.9 37-47 % Mean Corpuscular Volume 89.2 80-100 fL Mean Corpuscular Hemoglobin 30.7 25-34 pg Mean Corpuscular Hemoglobin Concent 34.4 32-36 g/dl Platelet Count 304 130-400 K/uL Mean Platelet Volume 10.8 7.4-10.4 fL Neutrophils (%) (Auto) 80.2 % Lymphocytes (%) (Auto) 10.0 % Monocytes (%) (Auto) 9.2 % Eosinophils (%) (Auto) 0.0 % Basophils (%) (Auto) 0.4 % Neutrophils # (Auto) 4.17 1.4-6.5 K/uL Lymphocytes # (Auto) 0.52 1.2-3.4 K/uL Monocytes # (Auto) 0.48 0.11-0.59 K/uL Eosinophils # (Auto) 0.00 0-0.5 K/uL Basophils # (Auto) 0.02 0-0.2 K/uL RDW Standard Deviation 46.3 36.4-46.3 fL RDW Coefficient of Variation 14.2 11.5-14.5 % Immature Granulocyte % (Auto) 0.2 % Immature Granulocyte # (Auto) 0.01 0.00-0.02 K/uL Prothrombin Time 10.3 9.0-12.0 SECONDS Prothromb Time International Ratio 1.0 0.9-1.1 Activated Partial Thromboplast Time 25.7 21.0-31.0 SECONDS Partial Thromboplastin Ratio 1.0 Sodium Level 136 136-145 mmol/L Potassium Level 3.6 3.5-5.1 mmol/L Chloride Level 103 98-107 mmol/L Carbon Dioxide Level 24 21-32 mmol/L Anion Gap 9.0 21.0 16-25 mmol/L Blood Urea Nitrogen 12 7-18 mg/dl Creatinine 1.23 0.60-1.20 mg/dl Est Creatinine Clear Calc Drug Dose 40.4 ml/min Estimated GFR () 50.7 Estimated GFR (Non- 43.8 BUN/Creatinine Ratio 10.0 10-20 Random Glucose 164 70-99 mg/dl Lactic Acid Level 3.4 0.4-2.0 mmol/L Calcium Level 9.2 8.5-10.1 mg/dl Total Bilirubin 0.6 0.2-1 mg/dl Direct Bilirubin 0.1 0-0.2 mg/dl Aspartate Amino Transf (AST/SGOT) 23 15-37 U/L Alanine Aminotransferase (ALT/SGPT) 19 12-78 U/L Alkaline Phosphatase 130 45-117 U/L Ammonia < 10.0 11-32 umol/L Total Protein 8.0 6.4-8.2 gm/dl Albumin 3.9 3.4-5.0 gm/dl Lipase 109 73-393 U/L Bedside Hemoglobin 13.3 12.0-16.0 g/dl Bedside Hematocrit 39 37-47 % Bedside Sodium 139 135-144 mEq/L Bedside Potassium 3.5 3.3-5.0 mEq/L Bedside Chloride 101 101-112 mEq/L Bedside Total CO2 22 24-31 mEq/l Bedside Blood Urea Nitrogen 12 7-18 mg/dl Bedside Creatinine 1.0 0.6-1.3 mg/dl Bedside Glucose (other) 170 70-99 mg/dl Bedside Ionized Calcium (Bryan) 1.05 1.12-1.32 mmol/l Urine Color YELLOW Urine Appearance CLEAR CLEAR Urine pH 7.0 4.5-7.5 Urine Specific [place] 1.031 1.000-1.030 Urine Protein NEG NEG Urine Glucose (UA) NEG NEG Urine Ketones TRACE NEG Urine Occult Blood TRACE NEG Urine Nitrite NEG NEG Urine Bilirubin NEG NEG Urine Urobilinogen NEG NEG Urine Leukocyte Esterase LARGE NEG Urine WBC (Auto) 5-10 0-5 /hpf Urine RBC (Auto) 0-4 0-4 /hpf Urine Hyaline Casts (Auto) 1-5 0-5 /lpf Urine Epithelial Cells (Auto) >30 0-5 /lpf Urine Bacteria (Auto) NEG NEG Microbiology Results 06/09/17 Blood Culture, Ordered Pending 06/09/17 Blood Culture, Ordered Pending 06/09/17 Urine Culture, Received Pending Diagnostic Radiology CTABD/PELVIS: IMPRESSION: 1. Unchanged mesenteric orlando mass with stable appearing tethering involving multiple adjacent loops of small bowel. 2. Enlarged size of multiple hepatic mass lesions compatible with progressive hepatic metastasis. 3. Nondistention with wall thickening involves the majority of the colon. A mild colitis is also within the differential, however felt to be less likely. 4. Unchanged scattered solid nodules of the right lung base. 5. Prior cholecystectomy. Impression Assessment and Plan INTRACTABLE NAUSEA AND VOMITING Patient started with nausea and vomiting 2 AM today, approximately 10 episodes, one episode patient reports appeared black, since emesis has been yellow. Denies any abdominal pain, melena, diarrhea, constipation, diarrhea, fever. Afebrile, no leukocytosis. Pt received NSS in ER and zofran x [address] doses [address] ABD/PELVIS:1. Unchanged mesenteric orlando mass with stable appearing tethering involving multiple adjacent loops of small bowel. 2. Enlarged size of multiple hepatic mass lesions compatible with progressive hepatic metastasis. 3. Non distention with wall thickening involves the majority of the colon. A mild colitis is also within the differential, however felt to be less likely. 4. Unchanged scattered solid nodules of the right lung base. 5. Prior cholecystectomy. -IVF -Zofran or Phenergan prn nausea -npo except for ice/sips at this time -GI consult -repeat cbc, liver+electrolytes in morning ELEVATED LACTIC ACID Lactic acid: 3.4 in ER. Patient received IVF. Afebrile, no leukocytosis, vitals stable. UA appears 30. Patient does not appear toxic. -Pending urine culture -Pending blood cultures -Repeat lactic acid -IVF METASTATIC ABDOMINAL CARCINOID TUMOR Follows with Dr Escalera. Receives octreotide monthly. Today's CT abd/pelvis shows unchanged mesenteric orlando mass with stable appearing tethering involving multiple adjacent loops of small bowel. Enlarged size of multiple hepatic mass lesions compatible with progressive hepatic metastasis. Unchanged scattered solid nodules of the right lung base. HYPERGLYCEMIA Glucose: 164. No reported hx DM -HA1c in am -Novolog sliding scale per protocol CKD III Cr: 1.23. (baseline ~0.98) -monitor renal functions -avoid nephrotoxic agents when able HTN -Continue lisinopril ALLERGIC RHINITIS -Continue Benadryl as needed DVT Prophylaxis -Heparin SQ Disposition: Admit MedSur Full code as per discussion with pt Follows with Kerri Schulz PA-C-[facility] for routine care Pt was seen with Dr Solano. See addendum Attending addendum: The patient was seen and examined in the medical floor. Admitted with intractable nausea and vomiting with history of carcinoid tumor with metastasis to liver. Feels better following symptomatic treatment Denies any more nausea and vomiting, any chest pain shortness of breath or palpitation. On examination No apparent distress Hemodynamically stable Chest-clear to auscultate bilaterally Heart S1-S2 regular, no murmur Abdomen-soft mildly tender right upper quadrant, bowel sounds present Extremities-no edema Admission labs and imaging studies reviewed Carcinoid tumor with liver and intraperitoneal metastasis Presented with intractable nausea vomiting Agree with assessment and plan as mentioned above. Dr. Pavan Solano Advanced Directives Existing Living Will: No Existing Power of Product/Industry Consultant: No Resuscitation Status VTE Prophylaxis Will order VTE Prophylaxis: Yes Additional Copies To Kerri Schulz PA-C
[2017-06-09] MEDS ORDERED: GLUCAGON FOR INJ 1 MG VIAL SQ PRN (16:30)
[2017-06-09] MEDS ORDERED: GLUCOSE 40% GEL 15 GM TUBE PO PRN (16:30)
[2017-06-09] MEDS ORDERED: DEXTROSE 50% 50 ML SYR IV PRN (16:30)
[2017-06-09] MEDS ORDERED: GLUCOSE 10 TABS/TUBE PO PRN (16:30)
[2017-06-09] MEDS: HEPARIN SOD 5000 UNIT/0.5 ML CARP SQ SCH (17:53)
--- NOTE | 2017-06-09 18:53 | GASTROINTESTINAL CONSULTATION ---
DATE OF CONSULTATION: 06/09/2017 Gastroenterology inpatient consultation note. CHIEF COMPLAINT: Nausea, vomiting and coffee-ground emesis. HISTORY OF PRESENT ILLNESS: Mrs. Garzon is a 72-year-old white female with a history of metastatic carcinoid involving the liver with orlando involvement in the mesentery. The patient was feeling in her usual state until 2:00 a.m. this morning when she developed recurrent nausea and vomiting that ultimately led to coffee-ground material, although racquel clots or blood was not identified. The patient denies any melena or bright red blood per rectum and this perpetual retching has stopped. She does use ibuprofen a couple times a day for joint pains and is not aware of a prior upper endoscopy or prior ulcer history. On admission, her laboratory studies are satisfactory with a white count of 5.2, hemoglobin of 13.4 that was repeated and is 13.3. MCV is 89, platelets 304,000. Serum chemistries showed an elevated lactate level of 3.4 this morning. BUN and creatinine are 12 and 1.2 with potassium 3.6, ionized calcium is slightly low 1.05, ammonia less than 10. Transaminases, AST 23, ALT 19, direct and total are 0.1 and 0.6 respectively. Patient does not use NSAIDs. Patient denies odynophagia or dysphagia. PAST MEDICAL HISTORY: Includes coronary vasospasm, syncope, hysterectomy, tonsillectomy, appendectomy, cholecystectomy, metastatic carcinoid which is chronic and is followed by Dr. Gonzalez and Dr. Escalera in [place] and [facility]. FAMILY HISTORY: Significant for cancer, diabetes, heart disease, hypertension and lung disease. SOCIAL HISTORY: The patient does not use tobacco products and does not use alcoholic beverages. She is and lives with her significant other and is retired. ALLERGIES: INCLUDE ASPIRIN, CELEBREX, CODEINE, MORPHINE, CAFFEINE, MIDAZOLAM, LORAZEPAM AND POSSIBLY OPIATES WHICH LEAD TO HALLUCINATIONS. HOME MEDICATIONS: Minimal and include vitamin D3, lisinopril, octreotide monthly and Nerve Tonic 1 tablet daily. REVIEW OF SYSTEMS: Review of systems is otherwise noncontributory based on 13-point exam except for mentioned above. Patient denies melena or bright red blood per rectum, significant weight loss or food intolerances. PHYSICAL EXAMINATION: VITAL SIGNS: Admission vital signs: Patient was afebrile at 36.8, pulse 78, respirations 20, blood pressure 145/105, pulse ox 99 on room air. GENERAL: Patient is awake, alert and oriented x3, accompanied by many family members in the room. She is resting comfortably. Her nausea and vomiting has actually settled down. HEENT: Her sclerae are anicteric, conjunctivae moist. Oral mucosa moist. Head: Normocephalic, atraumatic. NECK: Normal range of motion. There is no cervical or supraclavicular adenopathy. I do not appreciate thyromegaly. HEART: Normal S1, S2. LUNGS: Clear to auscultation without rales, rhonchi or wheezes. ABDOMEN: Soft, minimally tender in the epigastrium and periumbilical region without rebound or guarding. There is no evidence of ascites or shifting dullness. The abdomen is not distended or overly tympanitic. EXTREMITIES: Without clubbing, cyanosis or edema. RECTAL: Deferred. LABORATORY DATA: Blood work, on admission, white count 5.2, hemoglobin 13.4, MCV 89, platelets 304,000. INR 1.0. Liver tests: Total and direct, 0.6 and 0.1; AST 23, ALT 19, alkaline phosphatase 130. Urinalysis showed trace ketones, occult blood and large leukocyte esterase with 5-10 white cells, 0-4 red cells and greater than 30 epithelial cells. IMAGING STUDIES: CT of the abdomen and pelvis which shows unchanged mesenteric orlando mass with stable appearing tethering involving multiple adjacent loops of small bowel. There is an enlarged size of multiple hepatic mass lesions consistent with progressive hepatic metastases, nondistention with wall thickening involving the majority of the colon, mild colitis is also within the differential; prior cholecystectomy, unchanged; scattered solid nodes in the right lung base. IMPRESSION AND PLAN: Patient with acute onset of nausea, vomiting. Interestingly, many of the family members commented that they had a tomato sauce around the same time in the evening and many of them had felt poorly after eating this. There are no specific features of obstruction on imaging or on physical exam and the patient is currently without vomiting. I believe it is reasonable to do an upper endoscopy, especially with her history of NSAID use and her carcinoid disease and will arrange for this tomorrow afternoon. Patient should be n.p.o. after midnight except for meds and if the patient desires to drink anything this evening, it should be only small amounts of ice chips and rare sips of water. Would place the patient on PPI therapy and continue her current medications including lisinopril, insulin. A dose of Protonix IV 40 mg daily is reasonable at this time. All questions answered for the patient and her family.
[2017-06-09] MEDS: INSULIN ASPART 100 UNITS/ML 3 ML PEN SC SCH (20:54)
[2017-06-09 23:03] VITALS: BP 132/77; PULSE 58; TEMP 37.2; O2SAT 98
[2017-06-10] VITALS (7 sets, daily range): BP systolic 103–146; BP diastolic 66–82; PULSE 52–72; TEMP 37–38.8; O2SAT 94–98; Ht 162.6 cm; Wt 73.1 kg
[2017-06-10] MEDS: INSULIN ASPART 100 UNITS/ML 3 ML PEN SC SCH ×4 (06:30→20:17)
[2017-06-10 07:18] LABS: HEMATOCRIT 33.8 % (37-47); HEMOGLOBIN 11.3 g/dL (12.0-16.0); MEAN CELL VOLUME 91.1 fL (80-100); MEAN CORPUSCULAR HEMOGLOBIN 30.5 pg (25-34); MEAN CORPUSCULAR HGB CONC 33.4 g/dl (32-36); MEAN PLATELET VOLUME 10.6 fL (7.4-10.4); PLATELET COUNT 257 K/uL (130-400); RED CELL DISTRIBUTION WIDTH CV 14.6 % (11.5-14.5); RED CELL DISTRIBUTION WIDTH SD 48.8 fL (36.4-46.3)
[2017-06-10 07:48] LABS: HEMOGLOBIN A1C 6.3 % (4.5-5.6)
[2017-06-10 07:53] LABS: ALBUMIN 3.1 gm/dl (3.4-5.0); ALT/SGPT 18 U/L (12-78); BLOOD UREA NITROGEN 13 mg/dl (7-18); CALCIUM 8.1 mg/dl (8.5-10.1); CARBON DIOXIDE 24 mmol/L (21-32); CREATININE 1.05 mg/dl (0.60-1.20); GLUCOSE 92 mg/dl (70-99); POTASSIUM 3.4 mmol/L (3.5-5.1); SODIUM 143 mmol/L (136-145)
[2017-06-10 07:56] LABS: ALKALINE PHOSPHATASE 101 U/L (45-117); AST/SGOT 23 U/L (15-37); TOTAL PROTEIN 6.5 gm/dl (6.4-8.2)
[2017-06-10] MEDS: LISINOPRIL 5 MG TAB PO SCH (08:29)
[2017-06-10] MEDS: HEPARIN SOD 5000 UNIT/0.5 ML CARP SQ SCH ×3 (08:31→17:43)
--- NOTE | 2017-06-10 14:54 | History & Physical Bridge Note ---
H&P Re-Evaluation Bridge Note: I have examined the patient, reviewed the History & Physical and in the interval since the performance of the History & Physical I have noted the following changes of clinical significance: No changes noted
[2017-06-10] MEDS ORDERED: PROPOFOL IV EMULSION 10 MG/ML 20 ML VIAL IV ONE (15:22)
[2017-06-10] MEDS ORDERED: ONDANSETRON INJ 2 MG/ML 2 ML VIAL ONE (15:23)
[2017-06-10] MEDS ORDERED: LIDOCAINE HCL 2% 2 ML VIAL (20MG/ML) ONE (15:23)
--- NOTE | 2017-06-10 15:56 | GI REPORT ---
Procedure Date: 06/10/2017 3:06 PM Procedure: Upper GI endoscopy Indications: Coffee-ground emesis, Nausea with vomiting Medicines: Propofol per Anesthesia Complications: No immediate complications. Estimated blood loss: None. Estimated Blood Loss: Estimated blood loss: none. Procedure: Pre-Anesthesia Assessment: - Prior to the procedure, a History and Physical was performed, and patient medications and allergies were reviewed. The patient's tolerance of previous anesthesia was also reviewed. The risks and benefits of the procedure and the sedation options and risks were discussed with the patient. All questions were answered, and informed consent was obtained. Prior Anticoagulants: The patient has taken no previous anticoagulant or antiplatelet agents. ASA Grade Assessment: II - A patient with mild systemic disease. After reviewing the risks and benefits, the patient was deemed in satisfactory condition to undergo the procedure. After obtaining informed consent, the endoscope was passed under direct vision. Throughout the procedure, the patient's blood pressure, pulse, and oxygen saturations were monitored continuously. The Scope was introduced through the mouth, and advanced to the second part of duodenum. The upper GI endoscopy was accomplished without difficulty. The patient tolerated the procedure well. Findings: The examined esophagus was normal. A medium-sized hiatal hernia was found. The proximal extent of the gastric folds (end of tubular esophagus) was 37 cm from the incisors. The hiatal narrowing was 40 cm from the incisors. The Z-line was 37 cm from the incisors. The entire examined stomach was normal. The examined duodenum was normal. The cardia and gastric fundus were normal on retroflexion. Retained gastric contents are not identified on this exam. Impression: - Normal esophagus. - Small hiatal hernia. - Medium-sized hiatal hernia. - Normal stomach. - Normal examined duodenum. - No specimens collected. Recommendation: - Discharge patient to home. - Advance diet as tolerated. - Continue present medications. - Await pathology results. MD Nilay Brooks MD 06/10/2017 3:56:07 PM This report has been signed electronically. Note Initiated On: 06/10/2017 3:06 PM I attest to the content of the Intraoperative Record and orders documented therein, exceptions below
--- NOTE | 2017-06-10 16:40 | Anesthesiology Progress Note ---
Anesthesia Post Op Note Date & Time Jun 10, 2017 at 16:40 Vital Signs Pain Intensity: 0 Vital Signs Past 12 Hours Date Time Temp Pulse Resp B/P (MAP) Pulse Ox O2 Delivery O2 Flow Rate FiO2 06/10/17 16:15 37.7 58 16 146/82 (103) 96 Room Air 06/10/17 15:57 67 20 142/80 (100) 96 06/10/17 15:41 67 18 153/84 (107) 95 Room Air 06/10/17 15:29 70 16 146/89 (108) 99 Room Air 06/10/17 14:34 37.5 65 16 153/77 (102) 95 Room Air 06/10/17 08:30 98 Room Air 06/10/17 07:07 37.1 52 18 123/73 (90) 98 Room Air Notes Mental Status: alert / awake / arousable, participated in evaluation Pt Amnestic to Procedure: Yes Nausea / Vomiting: adequately controlled Pain: adequately controlled Airway Patency, RR, SpO2: stable & adequate BP & HR: stable & adequate Hydration State: stable & adequate Anesthetic Complications: no major complications apparent
[2017-06-10 17:32] LABS: INFLUENZA A PCR Neg for Influ A (NEG); INFLUENZA B PCR POS for Influ B (NEG)
--- NOTE | 2017-06-10 18:33 | GASTROENTEROLOGY PROGRESS NOTE ---
DATE: 06/10/2017 Patient underwent upper endoscopy today which revealed only a hiatal hernia. There was no evidence of esophagitis, gastritis, ulcer disease, or retained gastric contents. Heme was not identified. At this point, it would be reasonable to advance the patient's diet as needed and would continue a dose of PPI therapy, either Protonix 40 mg or similar agent orally. Labs today show hemoglobin trended down this morning to 11.3. Patient, however, was otherwise stable. We will follow with you. Antiemetics as needed for any return of nausea or stomach upset. Dr. Jason Goss will be covering the service for [facility] this weekend.
[2017-06-10] MEDS: ACETAMINOPHEN 325 MG TAB PO PRN (20:17)
[2017-06-10] MEDS: OSELTAMIVIR PHOSPHATE SUSP 30 MG/5 ML UDP PO SCH (20:20)
--- NOTE | 2017-06-10 20:48 | Progress Note ---
Medicine Progress Note Date & Time of Visit: Jun 10, 2017 at 12:00 . Subjective CC: Follow-up visit for nausea, vomiting, and other problems.. HPI: Admitted yesterday for intractable nausea and vomiting. She has symptoms have improved. Currently NPO, awaiting EGD. Has had a nonproductive cough for the past couple days associated with pharyngitis. ROS: General- no fever, no chills Resp- as noted above in HPI Cardiac- no chest pain GI- as noted above in HPI . Objective Last 8 Hrs Date Time Temp Pulse Resp B/P (MAP) Pulse Ox O2 Delivery O2 Flow Rate FiO2 06/10/17 19:15 38.8 71 18 113/67 (82) 96 Room Air 06/10/17 16:15 Room Air 06/10/17 16:15 37.7 58 16 146/82 (103) 96 Room Air 06/10/17 15:57 67 20 142/80 (100) 96 06/10/17 15:41 67 18 153/84 (107) 95 Room Air 06/10/17 15:29 70 16 146/89 (108) 99 Room Air 06/10/17 14:34 37.5 65 16 153/77 (102) 95 Room Air Physical Exam: General- lying in bed, no distress ENT- no pharyngeal erythema Lungs- mild wheezing, otherwise clear to auscultation; no respiratory distress Cardiovascular- RRR; no murmur or gallop appreciated; no JVD; no pretibial edema Abdomen- + bowel sounds, soft, nontender Extremities- no cyanosis; no calf tenderness Neuro- alert, oriented Skin- warm & dry . Laboratory Results: Last 24 Hours Test 06/09/17 20:53 06/10/17 06:34 06/10/17 06:42 06/10/17 11:32 Bedside Glucose 126 mg/dl 95 mg/dl 92 mg/dl White Blood Count 5.20 K/uL Red Blood Count 3.71 M/uL Hemoglobin 11.3 g/dL Hematocrit 33.8 % Mean Corpuscular Volume 91.1 fL Mean Corpuscular Hemoglobin 30.5 pg Mean Corpuscular Hemoglobin Concent 33.4 g/dl RDW Standard Deviation 48.8 fL RDW Coefficient of Variation 14.6 % Platelet Count 257 K/uL Mean Platelet Volume 10.6 fL Sodium Level 143 mmol/L Potassium Level 3.4 mmol/L Chloride Level 111 mmol/L Carbon Dioxide Level 24 mmol/L Anion Gap 8.0 mmol/L Blood Urea Nitrogen 13 mg/dl Creatinine 1.05 mg/dl Est Creatinine Clear Calc Drug Dose 47.1 ml/min Estimated GFR () 61.4 Estimated GFR (Non- 53.0 BUN/Creatinine Ratio 12.2 Random Glucose 92 mg/dl Estimated Average Glucose 134 mg/dl Hemoglobin A1c 6.3 % Calcium Level 8.1 mg/dl Total Bilirubin 0.4 mg/dl Direct Bilirubin < 0.1 mg/dl Aspartate Amino Transf (AST/SGOT) 23 U/L Alanine Aminotransferase (ALT/SGPT) 18 U/L Alkaline Phosphatase 101 U/L Total Protein 6.5 gm/dl Albumin 3.1 gm/dl Globulin 3.4 gm/dl Albumin/Globulin Ratio 0.9 Test 06/10/17 16:18 06/10/17 16:31 06/10/17 20:08 Influenza Type A (RT-PCR) Neg for Influ A Influenza Type B (RT-PCR) POS for Influ B Bedside Glucose 88 mg/dl 134 mg/dl Assessment & Plan NAUSEA VOMITING Symptoms improved. GI consulted. EGD planned for later today. 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 Outpatient follow-up with Oncology. VTE PROPHYLAXIS SQ heparin. Ambulate. DISPOSITION Expected discharge to home. Primary care follow-up with Kerri Schulz PA-C. Oncology follow-up with Dr. Escalera. . Current Inpatient Medications: Current Inpatient Medications Medications (Trade) Dose Ordered Sig/Yahaira Route Start Time Stop Time Status Last Admin Dose Admin Ioversol (Optiray 320) 100 ml UD PRN IV 06/09/17 12:45 06/13/17 12:44 Heparin Sodium (Porcine) (Heparin Sq 5000 Unit/0.5ml) 5,000 unit Q8H SQ 06/09/17 16:00 07/09/17 15:59 06/10/17 17:43 5,000 UNIT Acetaminophen (Tylenol Tab) 650 mg Q4H PRN PO 06/09/17 15:15 07/09/17 15:14 06/10/17 20:17 650 MG Polyethylene (Miralax Powder Packet) 17 gm DAILY PRN PO 06/09/17 15:15 07/09/17 15:14 Ondansetron HCl (Zofran Inj) 4 mg Q6H PRN IV 06/09/17 15:30 07/09/17 15:29 Promethazine HCl 25 mg/Sodium Chloride 51 ml @ 204 mls/hr Q6H PRN IV 06/09/17 15:30 07/09/17 15:29 Lisinopril (Zestril Tab) 2.5 mg QAM PO 06/10/17 08:00 07/10/17 08:59 06/10/17 08:29 2.5 MG Diphenhydramine HCl (Benadryl Cap) 50 mg DAILY PRN PO 06/09/17 15:30 07/09/17 15:29 06/09/17 20:59 50 MG Insulin Aspart (novoLOG ASPART) SLIDING SCALE If C... ACHS SC 06/09/17 21:00 07/09/17 20:59 Glucose (Glucose 40% Gel) 15-30 GRAMS 15 GRAMS... UD PRN PO 06/09/17 16:30 07/09/17 16:29 Glucose (Glucose Chew Tab) 4-8 Tablets 4 Tabl... UD PRN PO 06/09/17 16:30 07/09/17 16:29 Dextrose (Dextrose 50% 50ML Syringe) 25-50ML OF 50% DW IV FOR... UD PRN IV 06/09/17 16:30 07/09/17 16:29 Glucagon (Glucagon Inj) 1 mg UD PRN SQ 06/09/17 16:30 07/09/17 16:29 Oseltamivir Phosphate (Tamiflu Susp) 30 mg BID PO 06/10/17 20:00 06/15/17 19:59 06/10/17 20:20 30 MG
[2017-06-11] VITALS (11 sets, daily range): BP systolic 88–109; BP diastolic 52–68; PULSE 51–66; TEMP 36.7–38; O2SAT 93–98
[2017-06-11] MEDS: ACETAMINOPHEN 325 MG TAB PO PRN ×2 (04:27→19:54)
[2017-06-11] MEDS: INSULIN ASPART 100 UNITS/ML 3 ML PEN SC SCH ×4 (06:30→20:23)
[2017-06-11] MEDS: HEPARIN SOD 5000 UNIT/0.5 ML CARP SQ SCH ×3 (08:15→17:16)
[2017-06-11] MEDS: OSELTAMIVIR PHOSPHATE SUSP 30 MG/5 ML UDP PO SCH ×2 (10:46→19:53)
[2017-06-11] MEDS: LISINOPRIL 5 MG TAB PO SCH (10:47)
--- NOTE | 2017-06-11 18:23 | Progress Note ---
Medicine Progress Note Date & Time of Visit: Jun 11, 2017 . Subjective CC: Follow-up visit for nausea, vomiting, influenza. HPI: Nausea and vomiting improved. No abdominal pain. Passing flatus, no stool. Tolerating clear liquid diet. Cough and pharyngitis improved. No fever. ROS: General- as noted above in HPI Resp- as noted above in HPI Cardiac- no chest pain GI- as noted above in HPI - no dysuria, no difficulty voiding . Objective Last 8 Hrs Date Time Temp Pulse Resp B/P (MAP) Pulse Ox O2 Delivery O2 Flow Rate FiO2 06/11/17 16:00 97 Room Air 06/11/17 15:22 36.7 63 20 100/64 (76) 97 Room Air 06/11/17 11:03 37.0 51 18 107/68 (81) 98 Room Air Physical Exam: General- lying in bed, no distress Lungs- mild wheezing, otherwise clear to auscultation; no respiratory distress Cardiovascular- RRR; no murmur or gallop appreciated; no JVD; no pretibial edema Abdomen- + bowel sounds, soft, nontender Extremities- no cyanosis; no calf tenderness Neuro- alert, oriented Skin- warm & dry . Laboratory Results: Last 24 Hours Test 06/10/17 20:08 06/11/17 07:33 06/11/17 11:50 06/11/17 16:44 Bedside Glucose 134 mg/dl 94 mg/dl 111 mg/dl 70 mg/dl Assessment & Plan NAUSEA VOMITING Symptoms improved. GI consulted. EGD 06/10 demonstrated hiatal hernia, no acute findings. Symptoms improved. Advance diet. COUGH REDYE HAND swab + for influenza B. 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 Outpatient follow-up with Oncology. VTE PROPHYLAXIS SQ heparin. Ambulate. DISPOSITION Expected discharge to home. Primary care follow-up with Kerri Schulz PA-C. Oncology follow-up with Dr. Escalera. . Current Inpatient Medications: Current Inpatient Medications Medications (Trade) Dose Ordered Sig/Yahaira Route Start Time Stop Time Status Last Admin Dose Admin Ioversol (Optiray 320) 100 ml UD PRN IV 06/09/17 12:45 06/13/17 12:44 Heparin Sodium (Porcine) (Heparin Sq 5000 Unit/0.5ml) 5,000 unit Q8H SQ 06/09/17 16:00 07/09/17 15:59 06/11/17 17:16 5,000 UNIT Acetaminophen (Tylenol Tab) 650 mg Q4H PRN PO 06/09/17 15:15 07/09/17 15:14 06/11/17 04:27 650 MG Polyethylene (Miralax Powder Packet) 17 gm DAILY PRN PO 06/09/17 15:15 07/09/17 15:14 Ondansetron HCl (Zofran Inj) 4 mg Q6H PRN IV 06/09/17 15:30 07/09/17 15:29 06/11/17 08:09 4 MG Promethazine HCl 25 mg/Sodium Chloride 51 ml @ 204 mls/hr Q6H PRN IV 06/09/17 15:30 07/09/17 15:29 06/11/17 10:48 204 MLS/HR Lisinopril (Zestril Tab) 2.5 mg QAM PO 06/10/17 08:00 07/10/17 08:59 06/11/17 10:47 2.5 MG Diphenhydramine HCl (Benadryl Cap) 50 mg DAILY PRN PO 06/09/17 15:30 07/09/17 15:29 06/11/17 11:05 50 MG Insulin Aspart (novoLOG ASPART) SLIDING SCALE If C... ACHS SC 06/09/17 21:00 07/09/17 20:59 Glucose (Glucose 40% Gel) 15-30 GRAMS 15 GRAMS... UD PRN PO 06/09/17 16:30 07/09/17 16:29 Glucose (Glucose Chew Tab) 4-8 Tablets 4 Tabl... UD PRN PO 06/09/17 16:30 07/09/17 16:29 Dextrose (Dextrose 50% 50ML Syringe) 25-50ML OF 50% DW IV FOR... UD PRN IV 06/09/17 16:30 07/09/17 16:29 Glucagon (Glucagon Inj) 1 mg UD PRN SQ 06/09/17 16:30 07/09/17 16:29 Oseltamivir Phosphate (Tamiflu Susp) 30 mg BID PO 06/10/17 20:00 06/15/17 19:59 06/11/17 10:46 30 MG
[2017-06-11] MEDS ORDERED: SODIUM CHLORIDE 0.9% 1000ML 1,000 ML IV ONE (20:15)
[2017-06-11] MEDS ORDERED: VANCOMYCIN CONSULT ACTIVE PRN (21:28)
[2017-06-11] MEDS ORDERED: VANCOMYCIN IV 1,750 MG in SODIUM CHLORIDE 0.9% 500ML 500 ML IV SCH (21:30)
[2017-06-12] MEDS: HEPARIN SOD 5000 UNIT/0.5 ML CARP SQ SCH ×3 (00:54→16:06)
[2017-06-12 04:26] VITALS: BP 99/64; PULSE 53; TEMP 36.6; O2SAT 96
[2017-06-12 06:15] LABS: HEMATOCRIT 32.1 % (37-47); HEMOGLOBIN 10.8 g/dL (12.0-16.0); MEAN CELL VOLUME 91.5 fL (80-100); MEAN CORPUSCULAR HEMOGLOBIN 30.8 pg (25-34); MEAN CORPUSCULAR HGB CONC 33.6 g/dl (32-36); MEAN PLATELET VOLUME 10.4 fL (7.4-10.4); PLATELET COUNT 202 K/uL (130-400); RED CELL DISTRIBUTION WIDTH CV 14.6 % (11.5-14.5); RED CELL DISTRIBUTION WIDTH SD 49.4 fL (36.4-46.3); WHITE BLOOD COUNT 3.41 K/uL (4.8-10.8)
[2017-06-12 06:43] LABS: CALCIUM 7.4 mg/dl (8.5-10.1); CREATININE 1.05 mg/dl (0.60-1.20)
[2017-06-12 07:20] VITALS: BP 112/69; PULSE 50; TEMP 36.9; O2SAT 98
[2017-06-12] MEDS: INSULIN ASPART 100 UNITS/ML 3 ML PEN SC SCH ×4 (08:43→20:50)
[2017-06-12] MEDS: POTASSIUM CHLORIDE 20 MEQ TABCR PO SCH ×2 (08:47→20:10)
[2017-06-12] MEDS: LISINOPRIL 5 MG TAB PO SCH (08:47)
[2017-06-12] MEDS: OSELTAMIVIR PHOSPHATE SUSP 30 MG/5 ML UDP PO SCH ×2 (08:48→20:15)
--- NOTE | 2017-06-12 09:59 | Pharmacy Progress Note ---
Pharmacy Antibiotic Consult Date of Service: Jun 12, 2017. Pharmacy Dosing Scope Pharmacy is consulted to initiate vancomycin IV dosing therapy, order appropriate labs and adjust drug dose/frequency. Subjective The patient is a 72 year old female admitted on Jun 09, 2017 at 15:17. Objective Height (Feet): 5 Height (Inches): 4.00 Weight (Kilograms): 73.300 Lab Results (24hrs): Test 06/11/17 20:16 06/12/17 05:42 06/12/17 06:57 06/12/17 07:31 Bedside Glucose 148 mg/dl (70-90) 95 mg/dl (70-90) White Blood Count 3.41 K/uL (4.8-10.8) Red Blood Count 3.51 M/uL (4.2-5.4) Hemoglobin 10.8 g/dL (12.0-16.0) Hematocrit 32.1 % (37-47) Mean Corpuscular Volume 91.5 fL (80-100) Mean Corpuscular Hemoglobin 30.8 pg (25-34) Mean Corpuscular Hemoglobin Concent 33.6 g/dl (32-36) RDW Standard Deviation 49.4 fL (36.4-46.3) RDW Coefficient of Variation 14.6 % (11.5-14.5) Platelet Count 202 K/uL (130-400) Mean Platelet Volume 10.4 fL (7.4-10.4) Sodium Level 140 mmol/L (136-145) Potassium Level mmol/L (3.5-5.1) 3.1 mmol/L (3.5-5.1) Chloride Level 107 mmol/L (98-107) Carbon Dioxide Level 27 mmol/L (21-32) Anion Gap 6.0 mmol/L (3-11) Blood Urea Nitrogen 14 mg/dl (7-18) Creatinine 1.05 mg/dl (0.60-1.20) Est Creatinine Clear Calc Drug Dose 47.5 ml/min Estimated GFR () 61.4 Estimated GFR (Non- 53.0 BUN/Creatinine Ratio 13.4 (10-20) Random Glucose 87 mg/dl (70-99) Calcium Level 7.4 mg/dl (8.5-10.1) Assessment & Plan Patient with gram positive cocci present in the blood (1/2) and gram variable bacilli in the urine. It is noted that repeat blood cultures are pending and the patient's Tmax over the past 24 hours was 38 C. Will await speciation of cultures. Loading dose: vancomycin 1750 mg (~24 mg/kg) IV X 1 dose (administered 06/11 ~2200) then: 1000 mg IV every 20 hours. Goal trough level estimate: between 15 - 20 mcg/mL. Peak and trough or random level has been ordered for: @1330. Pharmacy will continue to follow and will adjust dose/frequency as necessary. Thank you
[2017-06-12 11:06] VITALS: BP 95/61; PULSE 56; TEMP 36.9; O2SAT 98
[2017-06-12] MEDS: VANCOMYCIN IV 1,000 MG in SODIUM CHLORIDE 0.9% 250ML 250 ML IV SCH ×2 (18:21→18:52)
[2017-06-12] MEDS: ACETAMINOPHEN 325 MG TAB PO PRN (18:22)
--- NOTE | 2017-06-12 19:15 | Progress Note ---
Medicine Progress Note Date & Time of Visit: Jun 12, 2017 at 11:45 . Subjective CC: Follow-up visit for nausea, vomiting, influenza. HPI: No fever. Diet advanced. No abdominal pain, nausea, vomiting. Passing flatus, no stool. Cough and pharyngitis improved. No fever. ROS: General- as noted above in HPI Resp- as noted above in HPI Cardiac- no chest pain GI- as noted above in HPI - no dysuria . Objective Last 8 Hrs Date Time Temp Pulse Resp B/P (MAP) Pulse Ox O2 Delivery O2 Flow Rate FiO2 06/12/17 16:00 Room Air Physical Exam: General- lying in bed, no distress Lungs- mild wheezing, otherwise clear to auscultation; no respiratory distress Cardiovascular- RRR; no murmur or gallop appreciated; no JVD; no pretibial edema Abdomen- + bowel sounds, soft, nontender Extremities- no cyanosis; no calf tenderness Neuro- alert, oriented Skin- warm & dry . Laboratory Results: Last 24 Hours Test 06/11/17 20:16 06/12/17 05:42 06/12/17 06:57 06/12/17 07:31 Bedside Glucose 148 mg/dl 95 mg/dl White Blood Count 3.41 K/uL Red Blood Count 3.51 M/uL Hemoglobin 10.8 g/dL Hematocrit 32.1 % Mean Corpuscular Volume 91.5 fL Mean Corpuscular Hemoglobin 30.8 pg Mean Corpuscular Hemoglobin Concent 33.6 g/dl RDW Standard Deviation 49.4 fL RDW Coefficient of Variation 14.6 % Platelet Count 202 K/uL Mean Platelet Volume 10.4 fL Sodium Level 140 mmol/L Potassium Level mmol/L 3.1 mmol/L Chloride Level 107 mmol/L Carbon Dioxide Level 27 mmol/L Anion Gap 6.0 mmol/L Blood Urea Nitrogen 14 mg/dl Creatinine 1.05 mg/dl Est Creatinine Clear Calc Drug Dose 47.5 ml/min Estimated GFR () 61.4 Estimated GFR (Non- 53.0 BUN/Creatinine Ratio 13.4 Random Glucose 87 mg/dl Calcium Level 7.4 mg/dl Test 06/12/17 11:38 06/12/17 16:24 Bedside Glucose 105 mg/dl 89 mg/dl Date/Time Source Procedure Growth Status 06/12/17 05:50 Blood Blood Culture Pending Received 06/12/17 05:42 Blood Blood Culture Pending Received Assessment & Plan NAUSEA VOMITING Symptoms improved. GI consulted. EGD 06/10 demonstrated hiatal hernia, no acute findings. Symptoms improved. Advanced diet. 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 Receiving oseltamivir. HYPERTENSION BP fluctuating. Continue lisinopril. Follow and titrate therapy. 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 Outpatient follow-up with Oncology. + BLOOD CULTURE 1 of 2 blood cultures from 06/09 growing gram-positive cocci. Afebrile. Repeat blood cultures obtained. Please empirically on IV vancomycin. VTE PROPHYLAXIS SQ heparin. Ambulate. DISPOSITION Expected discharge to home. Primary care follow-up with Kerri Schulz PA-C. Oncology follow-up with Dr. Escalera. . Current Inpatient Medications: Current Inpatient Medications Medications (Trade) Dose Ordered Sig/Yahaira Route Start Time Stop Time Status Last Admin Dose Admin Ioversol (Optiray 320) 100 ml UD PRN IV 06/09/17 12:45 06/13/17 12:44 Heparin Sodium (Porcine) (Heparin Sq 5000 Unit/0.5ml) 5,000 unit Q8H SQ 06/09/17 16:00 07/09/17 15:59 06/12/17 16:06 5,000 UNIT Acetaminophen (Tylenol Tab) 650 mg Q4H PRN PO 06/09/17 15:15 07/09/17 15:14 06/12/17 18:22 650 MG Polyethylene (Miralax Powder Packet) 17 gm DAILY PRN PO 06/09/17 15:15 07/09/17 15:14 Ondansetron HCl (Zofran Inj) 4 mg Q6H PRN IV 06/09/17 15:30 07/09/17 15:29 06/11/17 08:09 4 MG Promethazine HCl 25 mg/Sodium Chloride 51 ml @ 204 mls/hr Q6H PRN IV 06/09/17 15:30 07/09/17 15:29 06/11/17 10:48 204 MLS/HR Lisinopril (Zestril Tab) 2.5 mg QAM PO 06/10/17 08:00 07/10/17 08:59 06/12/17 08:47 2.5 MG Diphenhydramine HCl (Benadryl Cap) 50 mg DAILY PRN PO 06/09/17 15:30 07/09/17 15:29 06/12/17 11:19 50 MG Insulin Aspart (novoLOG ASPART) SLIDING SCALE If C... ACHS SC 06/09/17 21:00 07/09/17 20:59 Glucose (Glucose 40% Gel) 15-30 GRAMS 15 GRAMS... UD PRN PO 06/09/17 16:30 07/09/17 16:29 Glucose (Glucose Chew Tab) 4-8 Tablets 4 Tabl... UD PRN PO 06/09/17 16:30 07/09/17 16:29 Dextrose (Dextrose 50% 50ML Syringe) 25-50ML OF 50% DW IV FOR... UD PRN IV 06/09/17 16:30 07/09/17 16:29 Glucagon (Glucagon Inj) 1 mg UD PRN SQ 06/09/17 16:30 07/09/17 16:29 Oseltamivir Phosphate (Tamiflu Susp) 30 mg BID PO 06/10/17 20:00 06/15/17 19:59 06/12/17 08:48 30 MG Miscellaneous Information (Consult) 1 ea DAILY PRN N/A 06/11/17 21:28 07/11/17 21:27 Potassium Chloride (Klor-Con Tab) 20 meq BID PO 06/12/17 08:00 07/12/17 07:59 06/12/17 08:47 20 MEQ Vancomycin HCl 1000 mg/Sodium Chloride 270 ml @ 125 mls/hr Q20H IV 06/12/17 18:00 06/26/17 17:59 06/12/17 18:52 125 MLS/HR
[2017-06-12 19:50] VITALS: BP 101/63; PULSE 59; TEMP 37; O2SAT 93
[2017-06-12 23:00] VITALS: BP 91/56; PULSE 53; TEMP 36.8; O2SAT 92
[2017-06-13] VITALS (7 sets, daily range): BP systolic 104–128; BP diastolic 65–75; PULSE 54–59; TEMP 36.2–37; O2SAT 95–98
[2017-06-13] MEDS: OSELTAMIVIR PHOSPHATE SUSP 30 MG/5 ML UDP PO SCH ×2 (08:15→20:35)
[2017-06-13] MEDS: POTASSIUM CHLORIDE 20 MEQ TABCR PO SCH ×2 (08:17→20:35)
[2017-06-13] MEDS: INSULIN ASPART 100 UNITS/ML 3 ML PEN SC SCH ×4 (08:18→20:36)
[2017-06-13] MEDS: HEPARIN SOD 5000 UNIT/0.5 ML CARP SQ SCH ×4 (10:30→23:40)
--- NOTE | 2017-06-13 10:40 | Progress Note ---
Progress Note Date of Service Jun 13, 2017. Progress Note ID Consult Dictated #[id number] A/P: 1. Influenza B 2. + blood culture - likely contaminant -Continue tamiflu x 5 days -continue droplet precautions -Repeat cultures pending, if negative can d/c [id number] -thank you
[2017-06-13] MEDS ORDERED: VANCOMYCIN TROUGH ONE (13:30)
[2017-06-13] MEDS: VANCOMYCIN IV 1,000 MG in SODIUM CHLORIDE 0.9% 250ML 250 ML IV SCH (14:36)
--- NOTE | 2017-06-13 14:37 | INFECT. DISEASE CONSULTATION ---
DATE OF CONSULTATION: 06/13/2017 HISTORY OF PRESENT ILLNESS: This is a 72-year-old female who is admitted to the hospital with nausea and vomiting. 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 She also did complain of some shortness of breath in the Emergency Room. As part of her workup, a flu swab was done that was positive for influenza B. She was placed on Tamiflu. Blood cultures were obtained as part of her original workup in the ER, and one of the two sets from the 12th is growing micrococcus. 06/12/2017 blood cultures are pending. She was started on vancomycin, and ID was consulted for positive blood cultures. She did have a T-max of 38.3 on the th and a T-max of 38 on the th, but since then, has been afebrile. She is tolerating Tamiflu well. She has not had a leukocytosis since admission, and her creatinine has been normal. Her urinalysis did have large leukocyte esterase with only 5-10 WBCs but only [address] of the abdomen and pelvis did confirm a tumor with hepatic metastasis. On my examination, the patient is out of bed to chair. Her daughter is present at the bedside. She states she is feeling significantly better and is asking to go home. She states she has some intermittent cough, but this is improved. She denies any chest pain. She denies any fevers or chills. She has no nausea, vomiting, or diarrhea. Her remaining review of systems is unremarkable. PAST MEDICAL HISTORY: Significant for metastatic carcinoid tumor, coronary vasospasm. PAST SURGICAL HISTORY: Significant for hysterectomy, tonsillectomy, adenoidectomy. FAMILY HISTORY: Noncontributory. SOCIAL HISTORY: Negative for tobacco use, alcohol use, or drug use. ALLERGIES: SHE HAS MULTIPLE ALLERGIES INCLUDING ASPIRIN, CELEBREX, CODEINE, MORPHINE, LATEX, CAFFEINE, BENZODIAZEPINES, AND OPIOIDS. MEDICATIONS: Vancomycin, potassium, Tamiflu, insulin, subcu heparin, Zofran, Benadryl, Tylenol, MiraLax. PHYSICAL EXAMINATION: VITAL SIGNS: She is afebrile, pulse 58, respiratory rate 18, blood pressure 128/74, oxygen saturation is 98% on room air. GENERAL: She is awake, alert, and oriented x3. She is in no acute distress. HEENT: Mucous membranes are moist. Extraocular muscles are intact. CARDIOVASCULAR: Heart is regular. RESPIRATORY: Lungs are clear bilaterally. GASTROINTESTINAL: Abdomen is soft and nondistended. EXTREMITIES: There is no edema. LABORATORY STUDIES: CBC: White blood cell count 3.4, hemoglobin 10.8, platelets 202. Chemistry panel done yesterday, sodium 140, potassium 3.1, chloride 107, bicarbonate 27, BUN 14, creatinine 1.0, glucose 95. UA is as above. A flu swab was positive for influenza B. Initial blood cultures on the are growing micrococcus, which returned this morning. Blood cultures from the are pending. ASSESSMENT: 1. Influenza. 2. Positive blood culture. PLAN: She will continue her course of Tamiflu to complete 5 days. She will remain in droplet precautions. I suspect that the micrococcus from her initial blood cultures represents skin contamination and will likely not require antibiotics. Her repeat blood cultures are pending. If negative, she could be discharged to complete her course of Tamiflu.
[2017-06-13 14:46] LABS: CREATININE 0.96 mg/dl (0.60-1.20)
[2017-06-13 15:14] LABS: HEMATOCRIT 36.2 % (37-47); HEMOGLOBIN 11.8 g/dL (12.0-16.0); MEAN CELL VOLUME 92.3 fL (80-100); MEAN CORPUSCULAR HEMOGLOBIN 30.1 pg (25-34); MEAN CORPUSCULAR HGB CONC 32.6 g/dl (32-36); MEAN PLATELET VOLUME 10.6 fL (7.4-10.4); PLATELET COUNT 237 K/uL (130-400); RED CELL DISTRIBUTION WIDTH CV 14.6 % (11.5-14.5); RED CELL DISTRIBUTION WIDTH SD 49.5 fL (36.4-46.3); WHITE BLOOD COUNT 4.33 K/uL (4.8-10.8)
--- NOTE | 2017-06-13 15:14 | Pharmacy Progress Note ---
Pharmacy Antibiotic Prog Note Date of Service Jun 13, 2017. Subjective The patient is currently receiving vancomycin 1000 mg iv q 20 hrs The patient is currently on day # 3 of IV therapy. Objective Height (Feet): 5 Height (Inches): 4.00 Weight (Kilograms): 73.700 Levels: Item Value Date Time Vancomycin Level Trough 10.5 mcg/ml 06/13/17 1405 Lab Results (24hrs): Test 06/13/17 07:40 06/13/17 11:33 06/13/17 14:05 Bedside Glucose 102 mg/dl (70-90) 75 mg/dl (70-90) Sodium Level 143 mmol/L (136-145) Potassium Level 4.0 mmol/L (3.5-5.1) Chloride Level 113 mmol/L (98-107) Carbon Dioxide Level 25 mmol/L (21-32) Anion Gap 5.0 mmol/L (3-11) Blood Urea Nitrogen 9 mg/dl (7-18) Creatinine 0.96 mg/dl (0.60-1.20) Est Creatinine Clear Calc Drug Dose 52.1 ml/min Estimated GFR () 68.5 Estimated GFR (Non- 59.1 BUN/Creatinine Ratio 9.8 (10-20) Random Glucose 74 mg/dl (70-99) Calcium Level 8.0 mg/dl (8.5-10.1) Magnesium Level 2.4 mg/dl (1.8-2.4) Vancomycin Level Trough 10.5 mcg/ml (SEE COMMENT) Micro Results: Item Value Date Time Blood Culture Received 06/12/17 0550 Blood Pending Blood Culture Received 06/12/17 0542 Blood Pending Blood Culture - Preliminary Resulted 06/09/17 1613 Blood Micrococcus Species Blood Culture - Preliminary Resulted 06/09/17 1559 Blood NO GROWTH TO DATE. Assessment & Plan Patient on vancomycin for positive blood culture. 1/2 cx positive for micrococcus - per ID feel like this is a skin contamination; repeat blood cultures are pending at this time. Vancomycin: * Trough level this am came back subtherapeutic at ~11 mcg/ml (goal 15-20 mcg/ml ) - note this is not steady state, so expect true trough to be slightly higher * Scr improving more today from 1.05 to 0.96 mg/dL - will adjust maintenance dose to target upper end of goal range, will adjust to vancomycin Q18 hrs * Estimated kinetics based upon current renal fxn: t1/2~15 hrs, ke~0.04 hr-1 * Will order a trough prior to the 2000 dose on 06/15 to ensure therapeutic - will monitor blood cx, and if negative could consider d/c vancomycin Pharmacy will continue to follow and will adjust dose/frequency as necessary. Thank you
[2017-06-13 15:15] LABS: BASO % 0.5 %; BASO ABS # 0.02 K/uL (0-0.2); EOS % 2.5 %; EOS ABS # 0.11 K/uL (0-0.5); IG# 0.01 K/uL (0.00-0.02); LYMPH ABS # 1.69 K/uL (1.2-3.4); MONO % 9.2 %; NEUT % 48.6 %
--- NOTE | 2017-06-13 20:03 | Progress Note ---
Medicine Progress Note Date & Time of Visit: Jun 13, 2017 at 12:10 . Subjective CC: Follow-up visit for influenza and other problems. HPI: Feels better. No fever or chills. Pharyngitis resolved. Minimal cough. No abdominal pain, nausea, vomiting, diarrhea. No fever. ROS: General- as noted above in HPI Resp- as noted above in HPI Cardiac- no chest pain GI- as noted above in HPI - no dysuria . Objective Last 8 Hrs Date Time Temp Pulse Resp B/P (MAP) Pulse Ox O2 Delivery O2 Flow Rate FiO2 06/13/17 15:08 Room Air 06/13/17 14:56 36.6 55 16 109/65 (80) 98 Physical Exam: General- lying in bed, no distress Lungs- mild wheezing, otherwise clear to auscultation; no respiratory distress Cardiovascular- RRR; no murmur or gallop appreciated; no JVD; no pretibial edema Abdomen- + bowel sounds, soft, nontender Extremities- no cyanosis; no calf tenderness Neuro- alert, oriented Skin- warm & dry . Laboratory Results: Last 24 Hours Test 06/13/17 07:40 06/13/17 11:33 06/13/17 14:05 06/13/17 16:25 Bedside Glucose 102 mg/dl 75 mg/dl 97 mg/dl White Blood Count 4.33 K/uL Red Blood Count 3.92 M/uL Hemoglobin 11.8 g/dL Hematocrit 36.2 % Mean Corpuscular Volume 92.3 fL Mean Corpuscular Hemoglobin 30.1 pg Mean Corpuscular Hemoglobin Concent 32.6 g/dl Platelet Count 237 K/uL Mean Platelet Volume 10.6 fL Neutrophils (%) (Auto) 48.6 % Lymphocytes (%) (Auto) 39.0 % Monocytes (%) (Auto) 9.2 % Eosinophils (%) (Auto) 2.5 % Basophils (%) (Auto) 0.5 % Neutrophils # (Auto) 2.10 K/uL Lymphocytes # (Auto) 1.69 K/uL Monocytes # (Auto) 0.40 K/uL Eosinophils # (Auto) 0.11 K/uL Basophils # (Auto) 0.02 K/uL RDW Standard Deviation 49.5 fL RDW Coefficient of Variation 14.6 % Immature Granulocyte % (Auto) 0.2 % Immature Granulocyte # (Auto) 0.01 K/uL Platelet Estimate NORMAL Sodium Level 143 mmol/L Potassium Level 4.0 mmol/L Chloride Level 113 mmol/L Carbon Dioxide Level 25 mmol/L Anion Gap 5.0 mmol/L Blood Urea Nitrogen 9 mg/dl Creatinine 0.96 mg/dl Est Creatinine Clear Calc Drug Dose 52.1 ml/min Estimated GFR () 68.5 Estimated GFR (Non- 59.1 BUN/Creatinine Ratio 9.8 Random Glucose 74 mg/dl Calcium Level 8.0 mg/dl Magnesium Level 2.4 mg/dl Procalcitonin < 0.05 ng/ml Vancomycin Level Trough 10.5 mcg/ml Assessment & Plan NAUSEA VOMITING Symptoms improved. GI consulted. EGD 06/10 demonstrated hiatal hernia, no acute findings. Symptoms improved. Advance diet. 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 Receiving oseltamivir. 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 Outpatient follow-up with Oncology. + BLOOD CULTURE 1 of 2 blood cultures from 06/09 growing Micrococcus species. Repeat blood cultures obtained-negative so far. Receiving empiric antibiotic therapy with IV vancomycin. ID consulted. Micrococcus sp. Probable contaminant. Discontinue vancomycin if repeat cultures negative at 48 hours. VTE PROPHYLAXIS SQ heparin. Ambulate. DISPOSITION Expected discharge to home. Primary care follow-up with Kerri Schulz PA-C. Oncology follow-up with Dr. Escalera. . Current Inpatient Medications: Current Inpatient Medications Medications (Trade) Dose Ordered Sig/Yahaira Route Start Time Stop Time Status Last Admin Dose Admin Heparin Sodium (Porcine) (Heparin Sq 5000 Unit/0.5ml) 5,000 unit Q8H SQ 06/09/17 16:00 07/09/17 15:59 06/13/17 10:30 5,000 UNIT Acetaminophen (Tylenol Tab) 650 mg Q4H PRN PO 06/09/17 15:15 07/09/17 15:14 06/12/17 18:22 650 MG Polyethylene (Miralax Powder Packet) 17 gm DAILY PRN PO 06/09/17 15:15 07/09/17 15:14 Ondansetron HCl (Zofran Inj) 4 mg Q6H PRN IV 06/09/17 15:30 07/09/17 15:29 06/11/17 08:09 4 MG Promethazine HCl 25 mg/Sodium Chloride 51 ml @ 204 mls/hr Q6H PRN IV 06/09/17 15:30 07/09/17 15:29 06/11/17 10:48 204 MLS/HR Diphenhydramine HCl (Benadryl Cap) 50 mg DAILY PRN PO 06/09/17 15:30 07/09/17 15:29 06/13/17 10:39 50 MG Insulin Aspart (novoLOG ASPART) SLIDING SCALE If C... ACHS SC 06/09/17 21:00 07/09/17 20:59 Glucose (Glucose 40% Gel) 15-30 GRAMS 15 GRAMS... UD PRN PO 06/09/17 16:30 07/09/17 16:29 Glucose (Glucose Chew Tab) 4-8 Tablets 4 Tabl... UD PRN PO 06/09/17 16:30 07/09/17 16:29 Dextrose (Dextrose 50% 50ML Syringe) 25-50ML OF 50% DW IV FOR... UD PRN IV 06/09/17 16:30 07/09/17 16:29 Glucagon (Glucagon Inj) 1 mg UD PRN SQ 06/09/17 16:30 07/09/17 16:29 Oseltamivir Phosphate (Tamiflu Susp) 30 mg BID PO 06/10/17 20:00 06/15/17 19:59 06/13/17 08:15 30 MG Miscellaneous Information (Consult) 1 ea DAILY PRN N/A 06/11/17 21:28 07/11/17 21:27 Potassium Chloride (Klor-Con Tab) 20 meq BID PO 06/12/17 08:00 07/12/17 07:59 06/13/17 08:17 20 MEQ Vancomycin HCl 1000 mg/Sodium Chloride 270 ml @ 125 mls/hr Q18H IV 06/14/17 08:00 06/26/17 07:59
[2017-06-14 04:14] VITALS: BP 127/81; PULSE 51; TEMP 36.5; O2SAT 95
[2017-06-14] MEDS ORDERED: ACET-1256 PO (04:54)
[2017-06-14 06:50] LABS: CREATININE 0.91 mg/dl (0.60-1.20)
[2017-06-14 07:11] VITALS: BP 126/75; PULSE 53; TEMP 36.7; O2SAT 100
[2017-06-14] MEDS: HEPARIN SOD 5000 UNIT/0.5 ML CARP SQ SCH (08:00)
[2017-06-14] MEDS ORDERED: VANCOMYCIN IV 1,000 MG in SODIUM CHLORIDE 0.9% 250ML 250 ML IV SCH (08:00)
[2017-06-14] MEDS: OSELTAMIVIR PHOSPHATE SUSP 30 MG/5 ML UDP PO SCH (08:07)
[2017-06-14] MEDS: POTASSIUM CHLORIDE 20 MEQ TABCR PO SCH (08:08)
[2017-06-14] MEDS: INSULIN ASPART 100 UNITS/ML 3 ML PEN SC SCH ×2 (08:09→12:06)
[2017-06-14] MEDS ORDERED: OCTR50IN INJ (11:00)
[2017-06-14] MEDS: ACETAMINOPHEN 325 MG TAB PO PRN (12:03)
[2017-06-14 12:07] VITALS: BP 123/80; PULSE 61; TEMP 36.5; O2SAT 97
--- NOTE | 2017-06-14 13:05 | Progress Note ---
Medicine Progress Note Date & Time of Visit: Jun 14, 2017 at 13:05 . Subjective Doing well. No fever. Minimal cough. Nausea and vomiting resolved. No abdominal pain. Moving bowels. Ambulating. . Objective Last 8 Hrs Date Time Temp Pulse Resp B/P (MAP) Pulse Ox O2 Delivery O2 Flow Rate FiO2 06/14/17 12:07 36.5 61 16 123/80 (94) 97 Room Air 06/14/17 08:00 Room Air 06/14/17 07:11 36.7 53 18 126/75 (92) 100 Room Air Physical Exam: General- no distress Lungs- clear to auscultation; no respiratory distress Cardiovascular- RRR; no murmur or gallop appreciated; no JVD; no pretibial edema Abdomen- + bowel sounds, soft, nontender Extremities- no cyanosis; no calf tenderness Neuro- alert, oriented Skin- warm & dry . Laboratory Results: Last 24 Hours Test 06/13/17 14:05 06/13/17 16:25 06/13/17 20:27 06/14/17 05:58 White Blood Count 4.33 K/uL Red Blood Count 3.92 M/uL Hemoglobin 11.8 g/dL Hematocrit 36.2 % Mean Corpuscular Volume 92.3 fL Mean Corpuscular Hemoglobin 30.1 pg Mean Corpuscular Hemoglobin Concent 32.6 g/dl Platelet Count 237 K/uL Mean Platelet Volume 10.6 fL Neutrophils (%) (Auto) 48.6 % Lymphocytes (%) (Auto) 39.0 % Monocytes (%) (Auto) 9.2 % Eosinophils (%) (Auto) 2.5 % Basophils (%) (Auto) 0.5 % Neutrophils # (Auto) 2.10 K/uL Lymphocytes # (Auto) 1.69 K/uL Monocytes # (Auto) 0.40 K/uL Eosinophils # (Auto) 0.11 K/uL Basophils # (Auto) 0.02 K/uL RDW Standard Deviation 49.5 fL RDW Coefficient of Variation 14.6 % Immature Granulocyte % (Auto) 0.2 % Immature Granulocyte # (Auto) 0.01 K/uL Platelet Estimate NORMAL Sodium Level 143 mmol/L Potassium Level 4.0 mmol/L Chloride Level 113 mmol/L Carbon Dioxide Level 25 mmol/L Anion Gap 5.0 mmol/L Blood Urea Nitrogen 9 mg/dl Creatinine 0.96 mg/dl 0.91 mg/dl Est Creatinine Clear Calc Drug Dose 52.1 ml/min 54.8 ml/min Estimated GFR () 68.5 73.1 Estimated GFR (Non- 59.1 63.0 BUN/Creatinine Ratio 9.8 Random Glucose 74 mg/dl Calcium Level 8.0 mg/dl Magnesium Level 2.4 mg/dl Procalcitonin < 0.05 ng/ml Vancomycin Level Trough 10.5 mcg/ml Bedside Glucose 97 mg/dl 125 mg/dl Test 06/14/17 07:25 06/14/17 11:52 Bedside Glucose 109 mg/dl 82 mg/dl Assessment & Plan INFLUENZA B Experiencing pharyngitis, nonproductive cough, nausea, and vomiting at time of admission. 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 Received oseltamivir with improvement; complete 5 days course. NAUSEA VOMITING GI consulted. EGD 06/10 demonstrated hiatal hernia, no acute findings. Symptoms may have been secondary to influenza. Diet advanced without difficulty. 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 Outpatient follow-up with Oncology. + BLOOD CULTURE 1 of 2 blood cultures from 06/09 growing Micrococcus species. Repeat blood cultures obtained-negative so far. Received empiric antibiotic therapy with IV vancomycin. ID consulted. Micrococcus species probably a contaminant. Repeat blood cultures negative at 48 hrs. Discontinued vancomycin. Re-evaluate if fever occurs. VTE PROPHYLAXIS Received SQ heparin. Ambulating. DISPOSITION Discharge to home. Primary care follow-up with Kerri Schulz PA-C. Oncology follow-up with Dr. Escalera. . Current Inpatient Medications: Current Inpatient Medications Medications (Trade) Dose Ordered Sig/Yahaira Route Start Time Stop Time Status Last Admin Dose Admin Heparin Sodium (Porcine) (Heparin Sq 5000 Unit/0.5ml) 5,000 unit Q8H SQ 06/09/17 16:00 07/09/17 15:59 06/13/17 10:30 5,000 UNIT Acetaminophen (Tylenol Tab) 650 mg Q4H PRN PO 06/09/17 15:15 07/09/17 15:14 06/14/17 12:03 650 MG Polyethylene (Miralax Powder Packet) 17 gm DAILY PRN PO 06/09/17 15:15 07/09/17 15:14 Ondansetron HCl (Zofran Inj) 4 mg Q6H PRN IV 06/09/17 15:30 07/09/17 15:29 06/11/17 08:09 4 MG Promethazine HCl 25 mg/Sodium Chloride 51 ml @ 204 mls/hr Q6H PRN IV 06/09/17 15:30 07/09/17 15:29 06/11/17 10:48 204 MLS/HR Diphenhydramine HCl (Benadryl Cap) 50 mg DAILY PRN PO 06/09/17 15:30 07/09/17 15:29 06/14/17 12:06 50 MG Insulin Aspart (novoLOG ASPART) SLIDING SCALE If C... ACHS SC 06/09/17 21:00 07/09/17 20:59 Glucose (Glucose 40% Gel) 15-30 GRAMS 15 GRAMS... UD PRN PO 06/09/17 16:30 07/09/17 16:29 Glucose (Glucose Chew Tab) 4-8 Tablets 4 Tabl... UD PRN PO 06/09/17 16:30 07/09/17 16:29 Dextrose (Dextrose 50% 50ML Syringe) 25-50ML OF 50% DW IV FOR... UD PRN IV 06/09/17 16:30 07/09/17 16:29 Glucagon (Glucagon Inj) 1 mg UD PRN SQ 06/09/17 16:30 07/09/17 16:29 Oseltamivir Phosphate (Tamiflu Susp) 30 mg BID PO 06/10/17 20:00 06/15/17 19:59 06/14/17 08:07 30 MG Potassium Chloride (Klor-Con Tab) 20 meq BID PO 06/12/17 08:00 07/12/17 07:59 06/14/17 08:08 20 MEQ
[2017-06-14] MEDS ORDERED: TMF75 PO (13:06)
--- NOTE | 2017-06-14 13:09 | Discharge Instructions ---
Discharge Instructions Date of Service Jun 14, 2017. Admission Reason for Admission: cough, sore throatl nausea, vomiting . Discharge Discharge Diagnosis / Problem: influenza B Discharge Goals Goal(s): Improve disease control Activity Recommendations Activity Limitations: as noted below Exercise/Sports Limitations: gradually increase as tolerated . Instructions / Follow-Up Instructions / Follow-Up APPOINTMENTS: PRIMARY CARE Kerri Schulz PA-C please call office for an appointment next week ONCOLOGY Dr. Escalera as scheduled OTHER INSTRUCTIONS: Seek medical attention if you have: * temperature above 101 * chest pain or trouble breathing * abdominal pain, nausea, vomiting * diarrhea, dark stools or bloody stools * any unanswered questions or concerns Call 911 if symptoms are severe. Call if you have any questions or problems. My cell # is [phone]. You can also reach a [facility] hospitalist on duty at [facility] 24 hours a day by calling [phone]. Please take good care of yourself. Kane Rodirguez . Current Hospital Diet Patient's current hospital diet: Regular Diet Discharge Diet Recommended Diet: AHA Diet (Heart Healthy) Procedures Procedures Performed: EGD Pending Studies Studies pending at discharge: no Laboratory Results Hemoglobin A1c Test 06/10/17 06:34 Range/Units Estimated Average Glucose 134 mg/dl Hemoglobin A1c 6.3 H 4.5-5.6 % Medical Emergencies . Who to Call and When: Medical Emergencies: If at any time you feel your situation is an emergency, please call 911 immediately. . Non-Emergent Contact Non-Emergency issues call your: Primary Care Provider, Hospital Doctor, Oncologist . . "Provider Documentation" section prepared by Kane Rodriguez. .
[2017-06-14 13:10] VITALS: BP 123/80; PULSE 61; TEMP 36.5; O2SAT 97
[2017-06-14] MEDS ORDERED: DIPH1TAB87 PO (13:17)
--- NOTE | 2017-06-14 18:04 | Discharge Summary ---
Discharge Summary Date of Service Jun 14, 2017. Discharge Summary Admission Date: Jun 09, 2017 at 15:17 Discharge Date: Jun 14, 2017 Discharge Disposition: Home Principal Diagnosis: influenza B nausea & vomiting . Secondary Diagnoses/Problems: Chronic and Resolved Medical Problems: (1) Carcinoid tumor of abdomen Status: Chronic (2) Coronary vasospasm Status: Chronic Surgical Problems: (1) History of hysterectomy Status: Chronic (2) History of tonsillectomy and adenoidectomy Status: Chronic (3) S/P appendectomy Status: Chronic (4) S/P cholecystectomy Status: Chronic Procedures: IV fluids IV meds CT of abdomen and pelvis EGD . Consultations: GI . Medication Reconciliation New Medications: Oseltamivir Phosphate (Tamiflu) 75 Mg Cap 75 MG PO BID, #2 CAP Continued Medications: Acetaminophen (Tylenol) 500 Mg Tab 500 MG PO Q8 PRN for Pain, TAB Cholecalciferol (Vitamin D-3) 2,000 Unit Tab 2000 UNITS PO QAM Diphenhydramine Hcl (Benadryl Allergy) 25 Mg Tab 50 MG PO DAILY PRN for ALLGERIES Docusate Sodium (Docusate Sodium) 100 Mg Cap 100 MG PO BID PRN for constipation for 30 Days, #60 CAP Lisinopril (Lisinopril) 5 Mg Tab 2.5 MG PO QAM Octreotide Acetate (Sandostatin) 50 Mcg/Ml Inj Unknown Dose INJ MONTHLY Admission Information HPI (per Admitting provider): Pt is 72 y/o F with PMH carcinoid tumor with metastases to liver and small intestine, HTN, allergic rhinitis and to ER with complaint of nausea vomiting. Patient states yesterday for dinner 8 spaghetti and meatballs. Reports 2 AM today started with nausea and vomiting. Reports vomited approximately 10 times. One emesis looked very dark and black which prompted patient to come to ER. Since emesis has been yellow. Denies racquel blood. Denies diarrhea or constipation. Last BM in middle of night reported formed stool. Patient follows with Dr. Escalera and has been receiving octreotide monthly. Patient reports no further interventions can be done. She states usually dose not have nausea or vomiting. Denies any noted fever or chills or abdominal pain. Reports she is sometimes short of breath which she relates to allergies and when takes Benadryl symptoms resolve. Denies any worsening. Denies others with N/V/D symptoms. Denies fever/chills, diaphoresis, melena, hematochezia, MARKS, dizziness , syncope, vision changes, neck pain, CP, orthopnea, palpitations, sore throat, choking, otalgia, rhinorrhea, abdominal pain, paresthesias, weakness, extremity weakness, extremity edema, rashes, urinary symptoms. . Physical Exam (per Admitting): General Appearance: WD/WN, no apparent distress (Sitting upright in bed) Head: normocephalic, atraumatic Eyes: normal inspection, sclerae normal ENT: hearing grossly normal, pharynx normal, + pertinent finding (Mucous membranes slightly dry) Neck: supple, no JVD, trachea midline Respiratory/Chest: lungs clear, normal breath sounds, no respiratory distress Cardiovascular: regular rate, rhythm, no murmur, normal peripheral pulses Abdomen/GI: normal bowel sounds, soft, + pertinent finding (Tenderness to palpation at this time) Back: no CVA tenderness Extremities/Musculoskelatal: no calf tenderness, normal capillary refill, no pedal edema, normal range of motion Neurologic/Psych: alert, normal mood/affect, oriented x 3 Skin: normal color, warm/dry Hospital Course INFLUENZA B Experiencing pharyngitis, nonproductive cough, nausea, and vomiting at time of admission. [employer] swab + for influenza B. Received oseltamivir with improvement; complete 5 days course. NAUSEA VOMITING GI consulted. EGD 06/10 demonstrated hiatal hernia, no acute findings. Symptoms may have been secondary to influenza. Diet advanced without difficulty. 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 Outpatient follow-up with Oncology. + BLOOD CULTURE 1 of 2 blood cultures from 06/09 growing Micrococcus species. Repeat blood cultures obtained-negative so far. Received empiric antibiotic therapy with IV vancomycin. ID consulted. Micrococcus species probably a contaminant. Repeat blood cultures negative at 48 hrs. Discontinued vancomycin. Re-evaluate if fever occurs. VTE PROPHYLAXIS Received SQ heparin. Ambulating. DISPOSITION Discharge to home. Primary care follow-up with Kerri Schulz PA-C. Oncology follow-up with Dr. Escalera. . Total time spent on discharge = 35 min. This includes examination of the patient, discharge planning, medication reconciliation, and communication with other providers. . Discharge Instructions Date of Service Jun 14, 2017. Admission Reason for Admission: cough, sore throat, nausea, vomiting . Discharge Discharge Diagnosis / Problem: influenza B Discharge Goals Goal(s): Improve disease control Activity Recommendations Activity Limitations: as noted below Exercise/Sports Limitations: gradually increase as tolerated . Instructions / Follow-Up Instructions / Follow-Up APPOINTMENTS: PRIMARY CARE Kerri Schulz PA-C please call office for an appointment next week ONCOLOGY Dr. Escalera as scheduled OTHER INSTRUCTIONS: Seek medical attention if you have: * temperature above 101 * chest pain or trouble breathing * abdominal pain, nausea, vomiting * diarrhea, dark stools or bloody stools * any unanswered questions or concerns Call 911 if symptoms are severe. Call if you have any questions or problems. My cell # is [phone]. You can also reach a [facility] hospitalist on duty at [facility] 24 hours a day by calling [phone]. Please take good care of yourself. Kane Rodriguez . Current Hospital Diet Patient's current hospital diet: Regular Diet Discharge Diet Recommended Diet: AHA Diet (Heart Healthy) Procedures Procedures Performed: EGD Pending Studies Studies pending at discharge: no Laboratory Results Hemoglobin A1c Test 06/10/17 06:34 Range/Units Estimated Average Glucose 134 mg/dl Hemoglobin A1c 6.3 H 4.5-5.6 % Medical Emergencies . Who to Call and When: Medical Emergencies: If at any time you feel your situation is an emergency, please call 911 immediately. . Non-Emergent Contact Non-Emergency issues call your: Primary Care Provider, Hospital Doctor, Oncologist . . "Provider Documentation" section prepared by Kane Rodriguez. . Additional Copies To Kerri Schulz PA-C; Darrick Escalera MD
[2017-06-14] MEDS ORDERED: CHOL200027 PO (20:17)
[2017-06-14] MEDS ORDERED: LSN5 PO (20:17)
[2017-06-15] MEDS ORDERED: LSN5 PO (16:24)
[2017-06-15] MEDS ORDERED: VANCOMYCIN TROUGH ONE (19:30)
== END 2017-06-14 14:45 | disposition home or self-care (01) | DRG 866 ==
LOC: C.EDB 12:22 → C.4E 15:17 → EDBEDREQSVC 15:23 → ENRESERV 15:26
PROVIDERS: ADMIT Internal Medicine; ATTEND Hospitalist
PROC: 0DJ08ZZ Inspection of Upper Intestinal Tract, Via Natural or Artificial Opening Endoscopic (ICD-10-PCS; principal; 2017-06-10 14:28)
DX: J10.2 Influenza due to other identified influenza virus with gastrointestinal manifestations (principal); C78.7 Secondary malignant neoplasm of liver and intrahepatic bile duct; C78.4 Secondary malignant neoplasm of small intestine; C7A.098 Malignant carcinoid tumors of other sites; J10.1 Influenza due to other identified influenza virus with other respiratory manifestations; E86.0 Dehydration; N18.3 Chronic kidney disease, stage 3 (moderate); I12.9 Hypertensive chronic kidney disease with stage 1 through stage 4 chronic kidney disease, or unspecified chronic kidney disease; J30.9 Allergic rhinitis, unspecified; Z83.3 Family history of diabetes mellitus; Z82.49 Family history of ischemic heart disease and other diseases of the circulatory system; Z88.6 Allergy status to analgesic agent; Z88.5 Allergy status to narcotic agent; Z88.8 Allergy status to other drugs, medicaments and biological substances

== ENCOUNTER 2017-06-14 17:40 | Observation (INO) | payer OTHER ==
[~2017-06-14] VITALS: Ht 162.6 cm; Wt 71.8 kg
[~2017-06-14 17:40] MED LIST changes: -CHOL200027 PO; -GADOXETATE DISODIUM (NON-WT BASED PROCEDURE) IV PRN; -LSN5 PO; -OPTIRAY 320 IV PRN
--- NOTE | 2017-06-14 18:02 | EMERGENCY ROOM VISIT NOTE ---
History Report prepared by Jonathan: Nilay Soliz Under the Supervision of: Dr. Kane Bird M.D. First contact with patient: 17:54 Chief Complaint: CHEST PAIN Stated Complaint: CHEST PAIN,SENT FROM MRI History of Present Illness The patient is a 72 year old female who presents to the Emergency Room with complaints of chest pain and shortness of breath that occurred during an outpatient MRI. The patient also notes the following associated symptoms, dizziness, general weakness, and lightheadedness. This started about an hour ago and resolved after a few minutes. She attributes her discomfort to getting worked up, anxious, and claustrophobic after getting into the MRI machine, and it was a 5/10 in severity. She notes she was given the dye injection and needed to use the restroom, but she was not able to get off the table. The patient reports her claustrophobia and distress started and then her chest pain began. The patient has noted no relieving factors. She was recently admitted and is being treated for metastatic carcinoid tumor. She states she was discharged and went straight to MRI from the floor. Pt denies LOC, pain radiating to her arms or legs, headache, fevers, chills, diaphoresis, visual changes, neck pain, nausea, vomiting, abdominal pain, back pain, melena, hematochezia, urinary symptoms, numbness, lymphadenopathy, focal weakness, rash , or other complaints. She notes a possible episode of atrial fibrillation or WI two years ago. Source of History: patient Onset: an hour ago Position: chest Symptom Intensity: 5/10 Quality: other (SOB in addition to discomfort) Timing: resolved Modifying Factors (Relieving): other (nothing) Associated Symptoms: + weakness (general) Note: Associated symptoms: dizziness, anxious, claustrophobic, and lightheadedness Review of Systems See HPI for pertinent positives and negatives. A total of ten systems were reviewed and were otherwise negative. Past Medical & Surgical Medical Problems: (1) Carcinoid tumor of abdomen (2) Coronary vasospasm (3) HTN (hypertension) (4) Syncope Surgical Problems: (1) History of hysterectomy (2) History of tonsillectomy and adenoidectomy (3) S/P appendectomy (4) S/P cholecystectomy Family History Cancer Diabetes mellitus Heart disease Hypertension Lung disease Social History Smoking Status: Never Smoker Alcohol Use: none Drug Use: none Marital Status: Housing Status: lives with significant other Occupation Status: retired Current/Historical Medications Scheduled Cholecalciferol (Vitamin D-3), 2,000 INTER.UNIT PO QAM Lisinopril (Lisinopril), 2.5 MG PO QAM Octreotide Acetate (Sandostatin), Unknown Dose INJ MONTHLY Oseltamivir Phosphate (Tamiflu), 75 MG PO BID Scheduled PRN Acetaminophen (Tylenol), 500 MG PO Q8 PRN for Pain Diphenhydramine Hcl (Benadryl Allergy), 50 MG PO DAILY PRN for Allergy Symptoms Docusate Sodium (Docusate Sodium), 100 MG PO BID PRN for constipation Allergies Coded Allergies: Aspirin (Verified Allergy, Intermediate, "ASTHMA", 06/09/17) Celecoxib (Verified Allergy, Intermediate, "ASTHMA ATTACK", 06/09/17) Codeine (Verified Allergy, Intermediate, "FACE PUFFS UP", 06/09/17) Morphine (Verified Allergy, Intermediate, "FACE PUFFS UP", 06/09/17) Latex1 -Allergic Contact Dermititis (Verified Allergy, Mild, RASH, 06/09/17 ) Caffeine (Verified Adverse Reaction, Intermediate, HEADACHE, 06/09/17) Midazolam (Unverified Adverse Reaction, Intermediate, extreme anxiety, 02/14) 2mg of versed given during heart catheterization, patient experienced extreme restlessness and anxiety. Lorazepam (Verified Adverse Reaction, Mild, ANXIOUS, 06/09/17) Uncoded Allergies: OPIOIDS (Adverse Reaction, Intermediate, HALLUCINATIONS, 12/05/15) Physical Exam Vital Signs Date Time Temp Pulse Resp B/P (MAP) Pulse Ox O2 Delivery O2 Flow Rate FiO2 06/14/17 23:15 64 14 06/14/17 22:45 65 13 96 06/14/17 22:14 72 06/14/17 20:49 71 20 164/105 97 Room Air 06/14/17 18:27 99 Room Air 06/14/17 18:23 99 Room Air 06/14/17 18:08 56 06/14/17 17:49 36.9 55 16 173/84 98 Room Air Physical Exam GENERAL: Awake, alert, well-appearing, in no distress HENT: Normocephalic, atraumatic. Oropharynx unremarkable. EYES: Normal conjunctiva. Sclera non-icteric. NECK: Supple. No nuchal rigidity. FROM. No masses. RESPIRATORY: Clear to auscultation. No wheezes. No rales. Normal respiratory effort. CARDIAC: Normal rate. Normal rhythm. No murmurs. No rubs. Extremities warm and well perfused. Pulses equal. No JVD. GI: Soft, non-distended. No tenderness to palpation. No rebound or guarding. No masses. RECTAL: Deferred. MUSCULOSKELETAL: Atraumatic. Chest examination reveals no tenderness. The back is symmetrical on inspection without obvious abnormality. There is no CVA tenderness to palpation. No joint edema. LOWER EXTREMITIES: Calves are equal size bilaterally and non-tender. No edema. No discoloration. NEURO: Normal sensorium. No sensory or motor deficits noted. SKIN: No rash or jaundice noted. Medical Decision & Procedures ER Provider Diagnostic Interpretation: X-ray: Per my interpretation, radiologist review. CHEST ONE VIEW PORTABLE CLINICAL HISTORY: Substernal chest pain COMPARISON STUDY: 04/26/2016 FINDINGS: The cardiac and mediastinal contours are normal. There is no evidence of focal pulmonary consolidation. There is no evidence of failure. No pleural effusions are visualized.[ There is a stable area of linear scar/subsegmental atelectasis at the left lung base. IMPRESSION: No active disease in the chest. Electronically signed by: Tanner Hurt M.D. 06/14/2017 7:13 PM Dictated Date/Time: 06/14/2017 7:13 PM Laboratory Results 06/14/17 20:34 Red Blood Count 4.17, Mean Corpuscular Volume 92.8, Mean Corpuscular Hemoglobin 30.9, Mean Corpuscular Hemoglobin Concent 33.3, Mean Platelet Volume 10.4, Neutrophils (%) (Auto) 48.1, Lymphocytes (%) (Auto) 40.5, Monocytes (%) (Auto) 8.1, Eosinophils (%) (Auto) 2.4, Basophils (%) (Auto) 0.7, Neutrophils # (Auto) 2.03, Lymphocytes # (Auto) 1.71, Monocytes # (Auto) 0.34, Eosinophils # (Auto) 0.10, Basophils # (Auto) 0.03 06/14/17 19:56 Test 06/14/17 19:56 06/14/17 20:34 06/14/17 20:50 06/14/17 20:55 Anion Gap 6.0 mmol/L (3-11) Est Creatinine Clear Calc Drug Dose 57.5 ml/min Estimated GFR () 78.2 Estimated GFR (Non- 67.5 BUN/Creatinine Ratio 8.8 (10-20) Calcium Level 8.9 mg/dl (8.5-10.1) Total Bilirubin 0.5 mg/dl (0.2-1) Direct Bilirubin < 0.1 mg/dl (0-0.2) Aspartate Amino Transf (AST/SGOT) 29 U/L (15-37) Alanine Aminotransferase (ALT/SGPT) 26 U/L (12-78) Alkaline Phosphatase 105 U/L (45-117) Total Creatine Kinase 105 U/L (26-192) Creatine Kinase MB 0.8 ng/ml (0.5-3.6) Creatine Kinase MB Ratio 0.8 (0-3.0) Total Protein 7.7 gm/dl (6.4-8.2) Albumin 3.7 gm/dl (3.4-5.0) Lipase 104 U/L (73-393) White Blood Count 4.22 K/uL (4.8-10.8) Red Blood Count 4.17 M/uL (4.2-5.4) Hemoglobin 12.9 g/dL (12.0-16.0) Hematocrit 38.7 % (37-47) Mean Corpuscular Volume 92.8 fL (80-100) Mean Corpuscular Hemoglobin 30.9 pg (25-34) Mean Corpuscular Hemoglobin Concent 33.3 g/dl (32-36) Platelet Count 247 K/uL (130-400) Mean Platelet Volume 10.4 fL (7.4-10.4) Neutrophils (%) (Auto) 48.1 % Lymphocytes (%) (Auto) 40.5 % Monocytes (%) (Auto) 8.1 % Eosinophils (%) (Auto) 2.4 % Basophils (%) (Auto) 0.7 % Neutrophils # (Auto) 2.03 K/uL (1.4-6.5) Lymphocytes # (Auto) 1.71 K/uL (1.2-3.4) Monocytes # (Auto) 0.34 K/uL (0.11-0.59) Eosinophils # (Auto) 0.10 K/uL (0-0.5) Basophils # (Auto) 0.03 K/uL (0-0.2) RDW Standard Deviation 49.3 fL (36.4-46.3) RDW Coefficient of Variation 14.6 % (11.5-14.5) Immature Granulocyte % (Auto) 0.2 % Immature Granulocyte # (Auto) 0.01 K/uL (0.00-0.02) Troponin I 0.027 ng/ml (0-0.045) Bedside Troponin I < 0.030 ng/ml (0-0.045) Test 06/14/17 21:50 Urine Color YELLOW Urine Appearance CLEAR (CLEAR) Urine pH 7.0 (4.5-7.5) Urine Specific [place] 1.019 (1.000-1.030) Urine Protein NEG (NEG) Urine Glucose (UA) NEG (NEG) Urine Ketones NEG (NEG) Urine Occult Blood NEG (NEG) Urine Nitrite NEG (NEG) Urine Bilirubin NEG (NEG) Urine Urobilinogen NEG (NEG) Urine Leukocyte Esterase SMALL (NEG) Urine WBC (Auto) 1-5 /hpf (0-5) Urine RBC (Auto) 0-4 /hpf (0-4) Urine Hyaline Casts (Auto) 1-5 /lpf (0-5) Urine Epithelial Cells (Auto) 10-20 /lpf (0-5) Urine Bacteria (Auto) NEG (NEG) Laboratory results reviewed by me ECG Per My Interpretation Indication: chest pain, SOB/dyspnea Rate (beats per minute): 54 Rhythm: sinus bradycardia Findings: nonspecific-ST abn, no ectopy, other (Normal intervals) Comparison ECG Date: 04/26/16 Change: no significant change Change: Repeat EKG: Sinus bradycardia with a rate of 59. Nonspecific ST abn. No acute ischemic changes. Compared to earlier today - No difference. ED Course 1756: I reviewed the EMR for past medicals about the patient. 1803: The patient was evaluated in room B08. A complete history and physical exam was performed. 1817: I discussed the patient's case with Dr. Rodriguez, [facility] Hospitalist that discharged the patient. He reports the patient did not have chest pain issues throughout her stay. He states if the patient has abnormal lab results, let the hospitalist system know, and they will address the issue. 2020: I reevaluated the patient. She is stable and waiting for her labs to return. 2134: I reevaluated the patient. She is stable. She is going to have a repeat troponin and EKG. 2234: Upon reexamination, the patient was resting. I discussed the test results and treatment plan with the patient. The patient will be evaluated for further management. 2241: [facility] He will evaluated the patient for further management and care. Medical Decision Triage Nursing notes reviewed. The patient's presentation and history were concerning for chest pain and anxiety with MRI imaging. Etiologies such as panic attack, anxiety, cardiac ischemia, aortic dissection, pulmonary embolism, pneumonia, pneumothorax, musculoskeletal, infections, gastrointestinal, as well as others were entertained. The patient was evaluated. She was doing well. She notes having panic and then developing chest pain in her MR imaging. The patient's CT scan of her chest was unremarkable. I contacted her treating physician in the hospital, Dr. Rodriguez. He noted she had an uneventful hospital stay. She was ambulatory. She had DVT prophylaxis. She had no issues with chest pain. She was diagnosed with influenza B and treated with Tamiflu. The patient was scheduled for this imaging as an outpatient. The patient's chest discomfort resolved spontaneously. Her ECG was unremarkable compared to prior. The patient's initial troponin was undetectable. She was somewhat of a challenge to obtain blood work from. There were several hours that elapsed from her episode of pain to her first blood draw. A repeat ECG was performed and was unremarkable. A second troponin was performed to evaluate for any delta and unfortunately her troponin did go up. It was still within the normal range but there was a trend in the wrong direction. Given the symptoms and duration further management was felt to be appropriate in the hospital. She will need serial enzymes. The symptoms seem consistent with anxiety and claustrophobia however cardiac etiologies are still possible. Consultation was made with the [facility] Hospitalist service. Patient was evaluated in the ER for further management Medication Reconcilliation Current Medication List: was personally reviewed by me Blood Pressure Screening Patient's blood pressure: Elevated blood pressure Monitored by hospitalist. Consults Time Called: 1814 Consulting Physician: Dr. Rodriguez [facility] Returned Call: 1817 I discussed the patient's case with [facility]. He reports the patient did not have chest pain issues throughout her stay. He states if the patient has abnormal lab results, let the hospitalist system know, and they will address the issue. Additional Consults: Time Called: 2112 Consulted Physician: Dalton Ko Returned Call: 2241 Additional Comments: I discussed the patient's case with Dalton Ko. He will evaluated the patient for further management and care. Impression Primary Impression: Substernal precordial chest pain Scribe Attestation The scribe's documentation has been prepared under my direction and personally reviewed by me in its entirety. I confirm that the note above accurately reflects all work, treatment, procedures, and medical decision making performed by me. Departure Information Dispostion Being Evaluated By Hospitalist Referrals Kerri Schulz PA-C (PCP) Patient Instructions My [facility]
--- NOTE | 2017-06-14 19:15 | DIAGNOSTIC IMAGING REPORT ---
CHEST ONE VIEW PORTABLE CLINICAL HISTORY: Substernal chest pain COMPARISON STUDY: 04/26/2016 FINDINGS: The cardiac and mediastinal contours are normal. There is no evidence of focal pulmonary consolidation. There is no evidence of failure. No pleural effusions are visualized.[ There is a stable area of linear scar/subsegmental atelectasis at the left lung base. IMPRESSION: No active disease in the chest. Electronically signed by: Tanner Hurt M.D. 06/14/2017 7:13 PM Dictated Date/Time: 06/14/2017 7:13 PM
[2017-06-14] MEDS ORDERED: CHOL200027 PO ×2 (20:17)
[2017-06-14] MEDS ORDERED: LSN5 PO ×2 (20:17)
[2017-06-14 20:47] LABS: ALBUMIN 3.7 gm/dl (3.4-5.0); ALT/SGPT 26 U/L (12-78); AST/SGOT 29 U/L (15-37); BLOOD UREA NITROGEN 8 mg/dl (7-18); CALCIUM 8.9 mg/dl (8.5-10.1); CARBON DIOXIDE 25 mmol/L (21-32); CREATININE 0.86 mg/dl (0.60-1.20); GLUCOSE 115 mg/dl (70-99); LIPASE 104 U/L (73-393); SODIUM 143 mmol/L (136-145)
[2017-06-14 20:48] LABS: BASO % 0.7 %; BASO ABS # 0.03 K/uL (0-0.2); EOS % 2.4 %; HEMATOCRIT 38.7 % (37-47); HEMOGLOBIN 12.9 g/dL (12.0-16.0); IG# 0.01 K/uL (0.00-0.02); LYMPH % 40.5 %; LYMPH ABS # 1.71 K/uL (1.2-3.4); MEAN CELL VOLUME 92.8 fL (80-100); MEAN CORPUSCULAR HEMOGLOBIN 30.9 pg (25-34); MEAN CORPUSCULAR HGB CONC 33.3 g/dl (32-36); MEAN PLATELET VOLUME 10.4 fL (7.4-10.4); MONO % 8.1 %; MONO ABS # 0.34 K/uL (0.11-0.59); NEUT % 48.1 %; NEUT ABS # 2.03 K/uL (1.4-6.5); PLATELET COUNT 247 K/uL (130-400); RED CELL DISTRIBUTION WIDTH CV 14.6 % (11.5-14.5); RED CELL DISTRIBUTION WIDTH SD 49.3 fL (36.4-46.3); WHITE BLOOD COUNT 4.22 K/uL (4.8-10.8)
[2017-06-14 20:50] LABS: ALKALINE PHOSPHATASE 105 U/L (45-117); CKMB 0.8 ng/ml (0.5-3.6); TOTAL PROTEIN 7.7 gm/dl (6.4-8.2)
[2017-06-14] MEDS ORDERED: ALUMINUM/MAGNESIUM/SIMETH (MAALOX MAX) 30 ML UDC PO PRN (23:30)
[2017-06-14] MEDS ORDERED: ACETAMINOPHEN 325 MG TAB PO PRN (23:30)
[2017-06-14] MEDS ORDERED: ONDANSETRON INJ 2 MG/ML 2 ML VIAL IV PRN (23:30)
[2017-06-14] MEDS ORDERED: POLYETHYLENE (MIRALAX) 17 GM PACK PO PRN (23:30)
[2017-06-14] MEDS ORDERED: NITROGLYCERIN 0.4 MG SL PER TAB CHARGE SL PRN (23:30)
[2017-06-14] MEDS ORDERED: DOCUSATE SODIUM 100 MG CAP PO PRN (23:30)
[2017-06-15] VITALS (8 sets, daily range): BP systolic 119–153; BP diastolic 77–105; PULSE 54–89; TEMP 36.5–36.9; O2SAT 93–100; Ht 162.6 cm; Wt 71.8 kg
[2017-06-15] MEDS ORDERED: IV FLUIDS COMPLETED PRN (01:45)
--- NOTE | 2017-06-15 03:28 | HISTORY & PHYSICAL EXAMINATION ---
DATE OF ADMISSION: 06/14/2017 CHIEF COMPLAINT: Chest pain. HISTORY OF PRESENT ILLNESS: This is a 72-year-old female with past medical history significant for carcinoid tumor of the abdomen, coronary vasospasm, syncope, hypertension, allergic rhinitis who was recently in the hospital for flu and nausea and vomiting, thought to be from flu, was discharged home and she went and took an MRI for her carcinoid tumor. While in the MRI, she was panicked and she was claustrophobic and she worked up and then she had some chest pain, which lasted for about 5 minutes. She could not complete the MRI and she was brought into the ER. In the ER, patient was asymptomatic for last 5hrs. Her EKG was unremarkable. Her troponin was negative. Point of care troponin was 0.03. The patient currently resting comfortably and hemodynamically stable. She denies any nausea, vomiting, or shortness of breath. Has cough with white yellowish phlegm. No fever, no chills, no abdominal pain. Currently resting comfortably and hemodynamically stable. ALLERGIES: ASPIRIN, CAFFEINE, CELEBREX, CODEINE, LATEX, ALLERGIC CONTACT DERMATITIS, LORAZEPAM, MORPHINE AND OPIATES. PAST MEDICAL HISTORY: As mentioned above. PAST SURGICAL HISTORY: Hysterectomy, tonsillectomy, adenoidectomy, appendectomy, cholecystectomy. FAMILY HISTORY: Significant for cancer, diabetes, heart disease, hypertension, diabetes. SOCIAL HISTORY: Never smoker. No alcohol use, no drug use. , lives with significant other. REVIEW OF SYMPTOMS: As per HPI. Rest of the symptoms negative. MEDICATIONS: The patient is on Tamiflu 20 mg p.o. b.i.d. for 1 more day, Tylenol 500 mg p.o. q. 8 hours p.r.n., vitamin D 2000 units p.o. daily, Benadryl 50 mg p.o. daily p.r.n. for allergies, Colace 100 mg p.o. b.i.d. p.r.n., lisinopril 2.5 mg p.o. a.m., octreotide injections monthly. PHYSICAL EXAMINATION: GENERAL: The patient is of moderate build, not in distress. VITAL SIGNS: Temperature 36.9, pulse 71, respiratory rate 20, blood pressure 164/105, oxygen 97% on room air. HEENT: No pallor, no icterus. Pupils equal, round, and react to light. NECK: No JVD, no neck masses, no carotid bruits. CARDIOVASCULAR: S1, S2 heard. Regular rate and rhythm. No murmur, no gallop. RESPIRATORY SYSTEM: Clear to auscultation bilaterally. No wheezing, no crackles. ABDOMEN: Soft, bowel sounds present. Nontender, nondistended. CENTRAL NERVOUS SYSTEM: Cranial nerves II-XII are grossly nonfocal. LOWER EXTREMITIES: No edema, no erythema. LABORATORIES: WBC 4.2, hemoglobin 12.9, hematocrit 38.7, platelets 247. Sodium 143, potassium 4, chloride 112, CO2 25, BUN 8, creatinine 0.8, serum glucose 115, calcium 8.9, total bilirubin 0.4, direct bilirubin less than 0.1, AST 14, ALT 20, alkaline phosphatase 105, total creatinine kinase 105. CK-MB 0.8 and troponin I less than 0.015. Repeat troponin 0.027, lipase 104. Urinalysis positive for small leukocyte esterase. Chest x-ray: No acute findings seen. EKG: Sinus bradycardia with a rate of 54, nonspecific T-wave abnormalities, no significant change from previous EKG. ASSESSMENT AND PLAN: 1. This is a 72-year-old female who presents with chest pain. The patient was in MRI today, was claustrophobic and panicked and later developed chest pain for about over 5 minutes. It got resolved now. Initial workup is negative. EKG is negative. The patient also has a history of vasospasm. The patient had cardiac catheterization in November 2015, which showed normal coronary arteries. An echo at that time was with normal ejection fraction, mild left ventricular hypertrophy. We will observe the patient in tele floor. We will do serial cardiac enzymes and the echocardiogram. If the serial cardiac enzymes and echo negative, patient can be discharged home. 2. History of carcinoid tumor, on monthly octreotide injections. Follow up with oncologist as scheduled. 3. History of recent flu. Still has one more day of Tamiflu. 4. History of hypertension. Continue her lisinopril. 5. Deep vein thrombosis prophylaxis and TEDs. DISPOSITION: Observation in tele floor. Expect to discharge home and follow with his family doctor. Level 1 full code. MTDD
[2017-06-15 05:48] LABS: BASO % 0.5 %; BASO ABS # 0.02 K/uL (0-0.2); EOS % 1.5 %; EOS ABS # 0.06 K/uL (0-0.5); HEMATOCRIT 37.2 % (37-47); HEMOGLOBIN 12.2 g/dL (12.0-16.0); LYMPH % 39.3 %; LYMPH ABS # 1.55 K/uL (1.2-3.4); MEAN CORPUSCULAR HEMOGLOBIN 30.5 pg (25-34); MEAN CORPUSCULAR HGB CONC 32.8 g/dl (32-36); MEAN PLATELET VOLUME 10.5 fL (7.4-10.4); MONO % 9.6 %; MONO ABS # 0.38 K/uL (0.11-0.59); NEUT % 49.1 %; NEUT ABS # 1.93 K/uL (1.4-6.5); PLATELET COUNT 257 K/uL (130-400); RED CELL DISTRIBUTION WIDTH CV 14.6 % (11.5-14.5); RED CELL DISTRIBUTION WIDTH SD 49.8 fL (36.4-46.3); WHITE BLOOD COUNT 3.94 K/uL (4.8-10.8)
[2017-06-15 06:21] LABS: CALCIUM 8.4 mg/dl (8.5-10.1); CREATININE 0.85 mg/dl (0.60-1.20); POTASSIUM 3.5 mmol/L (3.5-5.1)
[2017-06-15] MEDS ORDERED: OSELTAMIVIR PHOSPHATE 75 MG CAP PO SCH ×2 (09:00)
[2017-06-15] MEDS ORDERED: LISINOPRIL 2.5 MG TAB PO SCH (09:00)
[2017-06-15] MEDS ORDERED: CHOLECALCIFEROL 1000 INTER.UNIT TAB PO SCH (09:00)
[2017-06-15] MEDS ORDERED: LISINOPRIL 2.5 MG TAB PO ONE (09:15)
--- NOTE | 2017-06-15 15:56 | ECHOCARDIOGRAM REPORT ---
*NOTICE TO RECEIVING REPUBLICAN AGENCY This information is strictly Confidential and protected under [place] law. [place] law prohibits you from making any further disclosure of this information unless further disclosure is expressly permitted by the written consent of the person to whom it pertains or is authorized by law. A general authorization for the release of medical or other information is not sufficient for this purpose. Hospital accepts no responsibility if the information is made available to any other person, INCLUDING THE PATIENT. Interpretation Summary * Name: TRACY CARDENAS Study Date: 06/15/2017 07:01 AM BP: 153/77 mmHg * Patient Location: [facility]\S\N289\S\2 HR: 56 * : 1945 (M/d/yyyy) Gender: Female Height: 64 in * Age: 72 yrs Ethnicity: [place] Weight: 158 lb * Ordering Physician: Yonatan Cagle * Referring Physician: Self, Referred * Performed By: Tiffanie Sinha RDCS * * Reason For Study: Chest Pain * BSA: 1.8 m2 * -- Conclusions -- * There is mild concentric left ventricular hypertrophy. * The left ventricular wall motion is normal. * No regional wall motion abnormalities noted. * The right ventricle is normal in size and function. * Aortic valve sclerosis mild, without significant aortic valvular stenosis. * There is mild mitral regurgitation. * Grade I diastolic dysfunction, (abnormal relaxation pattern). Procedure Details * A complete two-dimensional transthoracic echocardiogram was performed (2D, M-mode, Doppler and color flow Doppler). Left Ventricle * The left ventricle is normal in size. * There is mild concentric left ventricular hypertrophy. * The basal septum is thickened and angulated consistent with sigmoid septum. * Ejection Fraction = 55-60%. * Left ventricular systolic function is normal. * The left ventricular wall motion is normal. * No regional wall motion abnormalities noted. Right Ventricle * The right ventricle is normal in size and function. * The right ventricular systolic function is normal as assessed by tricuspid annular plane systolic excursion (TAPSE) (normal >1.5 cm). Atria * The left atrial size is normal. * Right atrial size is normal. * There is no evidence of atrial septal defect, but resolution does not allow assessment for a patent foramen ovale. Mitral Valve * The mitral valve is normal. * There is no mitral valve stenosis. * There is mild mitral regurgitation. Tricuspid Valve * The tricuspid valve is normal. * There is no tricuspid stenosis. * Significant tricuspid regurgitation is absent. * Doppler findings do not suggest pulmonary hypertension. Aortic Valve * The aortic valve is trileaflet. * Aortic valve sclerosis mild, without significant aortic valvular stenosis. * Aortic stenosis is absent. * There is no significant aortic regurgitation. Pulmonic Valve * The pulmonary valve is not well seen, but the Doppler examination is normal without significant regurgitation or stenosis. Great Vessels * The aortic root is normal size. * The proximal ascending thoracic aorta is mildly dilated with dimension of 4.2 cm. Pericardium/Pleural * There is no pericardial effusion. * There is an echodensity in the anterior pericardial space consistent with pericardial fat. Great Vessels * Normal inferior vena cava diameter and respiratory variation suggests normal central venous pressure. Left Ventricular Diastolic Function * Grade I diastolic dysfunction, (abnormal relaxation pattern). MMode 2D Measurements and Calculations IVSd 1.3 cm IVSs 1.3 cm LVIDd 3.6 cm LVIDs 2.6 cm LVPWd 1.4 cm LVPWs 1.4 cm IVS/LVPW 0.91 FS 27.0 % EDV(Teich) 55.5 ml ESV(Teich) 25.8 ml EF(Teich) 53.6 % EDV(cubed) 47.8 ml ESV(cubed) 18.6 ml EF(cubed) 61.1 % % IVS thick 6.2 % % LVPW thick 3.3 % LV mass(C)d 165.4 grams LV mass(C)dI 93.5 grams/m\S\2 LV mass(C)s 116.7 grams LV mass(C)sI 65.9 grams/m\S\2 SV(Teich) 29.7 ml SI(Teich) 16.8 ml/m\S\2 SV(cubed) 29.2 ml SI(cubed) 16.5 ml/m\S\2 Ao root diam 3.4 cm Ao root area 9.1 cm\S\2 ACS 1.8 cm LA dimension 3.2 cm asc Aorta Diam 4.2 cm LA/Ao 0.95 LVAd ap4 25.1 cm\S\2 LVLd ap4 7.3 cm EDV(MOD-sp4) 72.8 ml EDV(sp4-el) 73.6 ml LVAs ap4 14.5 cm\S\2 LVLs ap4 6.5 cm ESV(MOD-sp4) 30.0 ml ESV(sp4-el) 27.7 ml EF(MOD-sp4) 58.7 % EF(sp4-el) 62.4 % LVAd ap2 22.6 cm\S\2 LVLd ap2 6.8 cm EDV(MOD-sp2) 64.4 ml EDV(sp2-el) 64.1 ml LVAs ap2 14.2 cm\S\2 LVLs ap2 6.1 cm ESV(MOD-sp2) 27.9 ml ESV(sp2-el) 28.0 ml EF(MOD-sp2) 56.7 % EF(sp2-el) 56.3 % LVLd %diff -7.96 % EDV(MOD-bp) 71.5 ml LVLs %diff -6.45 % ESV(MOD-bp) 29.3 ml EF(MOD-bp) 59.0 % SV(MOD-sp4) 42.7 ml SI(MOD-sp4) 24.2 ml/m\S\2 SV(MOD-sp2) 36.5 ml SI(MOD-sp2) 20.6 ml/m\S\2 SV(MOD-bp) 42.1 ml SI(MOD-bp) 23.8 ml/m\S\2 SV(sp4-el) 45.9 ml SI(sp4-el) 25.9 ml/m\S\2 SV(sp2-el) 36.1 ml SI(sp2-el) 20.4 ml/m\S\2 Doppler Measurements and Calculations MV E max [place] 61.1 cm/sec MV A max [place] 82.3 cm/sec MV E/A 0.74 MV dec time 0.39 sec Ao V2 max 142.5 cm/sec Ao max PG 8.1 mmHg Ao max PG (full) 4.4 mmHg AI max [place] 369.2 cm/sec AI max PG 54.6 mmHg AI dec slope 142.3 cm/sec\S\2 AI P1/2t 759.8 msec LV V1 max PG 3.7 mmHg LV V1 max 96.6 cm/sec PA V2 max 95.2 cm/sec PA max PG 3.7 mmHg PI max [place] 109.4 cm/sec PI max PG 4.8 mmHg PI dec slope 39.8 cm/sec\S\2 PI P1/2t 805.1 msec TR max [place] 152.4 cm/sec
[2017-06-15] MEDS ORDERED: LSN5 PO ×2 (16:24)
--- NOTE | 2017-06-15 16:28 | Discharge Instructions ---
Discharge Instructions Date of Service Jun 15, 2017. Admission Reason for Admission: Substernal Precordial Chest Pain Discharge Discharge Diagnosis / Problem: CHEST PAIN Discharge Goals Goal(s): Diagnostic testing, Therapeutic intervention Activity Recommendations Activity Limitations: as noted below (RESUME ACTIVITY GRADUALLY TOLERATED, NO HEAVY EXERTION UNTIL RE-EVALUATED BY PRIMARY CARE PHYSICIAN) Lifting Limitations: until after follow-up appointment Exercise/Sports Limitations: until after follow-up appointment Driving or Machine Use: NO DRIVING UNTIL RE-EVALUATED BY PRIMARY CARE PHYSICIAN . Instructions / Follow-Up Instructions / Follow-Up PLEASE REFER TO YOUR NEW MEDICATION LIST AND FOLLOW INSTRUCTIONS CAREFULLY. CALL YOUR PRIMARY CARE PHYSICIAN OR RETURN TO ER IMMEDIATELY IF WITH RECURRENCE OF SYMPTOMS. FOLLOW UP WITH YOUR PRIMARY CARE PHYSICIAN IN 3-5 DAYS. Current Hospital Diet Patient's current hospital diet: AHA Diet (Heart Healthy) Discharge Diet Recommended Diet: AHA Diet (Heart Healthy) Procedures Procedures Performed: ECHOCARDIOGRAM OF THE HEART Pending Studies Studies pending at discharge: no Laboratory Results Hemoglobin A1c Test 06/10/17 06:34 Range/Units Estimated Average Glucose 134 mg/dl Hemoglobin A1c 6.3 H 4.5-5.6 % Medical Emergencies . Who to Call and When: Medical Emergencies: If at any time you feel your situation is an emergency, please call 911 immediately. . Non-Emergent Contact Non-Emergency issues call your: Primary Care Provider Call Non-Emergent contact if: you have a fever, your pain is not controlled, your pain is worsening, you have any medication questions . . "Provider Documentation" section prepared by Roddy Crowder. .
--- NOTE | 2017-06-15 16:41 | Progress Note ---
Medicine Progress Note Date & Time of Visit: Jun 15, 2017 at 16:29. Subjective Seen resting bedside chair, comfortable Better at the bedside visiting States the chest pain has not recurred since admission to the hospital Denies shortness of breath, dizziness, nausea vomiting, ambulating with no problems Attributes yesterday's chest pain to severe anxiety related to MRI Denies other symptoms States she is ready and would like to be discharged Objective Last 8 Hrs Date Time Temp Pulse Resp B/P (MAP) Pulse Ox O2 Delivery O2 Flow Rate FiO2 06/15/17 16:07 36.5 64 20 119/79 (92) 93 Room Air 06/15/17 16:00 Room Air 06/15/17 13:53 36.9 54 20 97 Room Air 06/15/17 12:13 36.9 54 20 149/82 (104) 97 Room Air 06/15/17 12:00 Room Air 06/15/17 09:27 60 134/81 (98) Physical Exam: General-oriented 3, not in distress, speaking in sentences, no accessory muscle Head- atraumatic Eyes- anicteric Neck- supple, no JVD Lungs- clear breath sounds bilaterally Heart- regular rhythm; no murmur, normal rate Abdomen- normal bowel sounds, soft, nontender Extremities- no pretibial edema, no calf tenderness; peripheral pulses intact Neuro- alert, oriented x 3; no gross focal neurologic deficit Skin- warm & dry Laboratory Results: Last 24 Hours Test 06/14/17 19:56 06/14/17 20:34 06/14/17 20:50 06/14/17 20:55 Sodium Level 143 mmol/L Potassium Level 4.0 mmol/L Chloride Level 112 mmol/L Carbon Dioxide Level 25 mmol/L Anion Gap 6.0 mmol/L Blood Urea Nitrogen 8 mg/dl Creatinine 0.86 mg/dl Est Creatinine Clear Calc Drug Dose 57.5 ml/min Estimated GFR () 78.2 Estimated GFR (Non- 67.5 BUN/Creatinine Ratio 8.8 Random Glucose 115 mg/dl Calcium Level 8.9 mg/dl Total Bilirubin 0.5 mg/dl Direct Bilirubin < 0.1 mg/dl Aspartate Amino Transf (AST/SGOT) 29 U/L Alanine Aminotransferase (ALT/SGPT) 26 U/L Alkaline Phosphatase 105 U/L Total Creatine Kinase 105 U/L Creatine Kinase MB 0.8 ng/ml Creatine Kinase MB Ratio 0.8 Troponin I < 0.015 ng/ml 0.027 ng/ml Total Protein 7.7 gm/dl Albumin 3.7 gm/dl Lipase 104 U/L White Blood Count 4.22 K/uL Red Blood Count 4.17 M/uL Hemoglobin 12.9 g/dL Hematocrit 38.7 % Mean Corpuscular Volume 92.8 fL Mean Corpuscular Hemoglobin 30.9 pg Mean Corpuscular Hemoglobin Concent 33.3 g/dl Platelet Count 247 K/uL Mean Platelet Volume 10.4 fL Neutrophils (%) (Auto) 48.1 % Lymphocytes (%) (Auto) 40.5 % Monocytes (%) (Auto) 8.1 % Eosinophils (%) (Auto) 2.4 % Basophils (%) (Auto) 0.7 % Neutrophils # (Auto) 2.03 K/uL Lymphocytes # (Auto) 1.71 K/uL Monocytes # (Auto) 0.34 K/uL Eosinophils # (Auto) 0.10 K/uL Basophils # (Auto) 0.03 K/uL RDW Standard Deviation 49.3 fL RDW Coefficient of Variation 14.6 % Immature Granulocyte % (Auto) 0.2 % Immature Granulocyte # (Auto) 0.01 K/uL Bedside Troponin I < 0.030 ng/ml Test 06/14/17 21:50 06/15/17 05:06 06/15/17 11:57 Urine Color YELLOW Urine Appearance CLEAR Urine pH 7.0 Urine Specific Aston 1.019 Urine Protein NEG Urine Glucose (UA) NEG Urine Ketones NEG Urine Occult Blood NEG Urine Nitrite NEG Urine Bilirubin NEG Urine Urobilinogen NEG Urine Leukocyte Esterase SMALL Urine WBC (Auto) 1-5 /hpf Urine RBC (Auto) 0-4 /hpf Urine Hyaline Casts (Auto) 1-5 /lpf Urine Epithelial Cells (Auto) 10-20 /lpf Urine Bacteria (Auto) NEG White Blood Count 3.94 K/uL Red Blood Count 4.00 M/uL Hemoglobin 12.2 g/dL Hematocrit 37.2 % Mean Corpuscular Volume 93.0 fL Mean Corpuscular Hemoglobin 30.5 pg Mean Corpuscular Hemoglobin Concent 32.8 g/dl Platelet Count 257 K/uL Mean Platelet Volume 10.5 fL Neutrophils (%) (Auto) 49.1 % Lymphocytes (%) (Auto) 39.3 % Monocytes (%) (Auto) 9.6 % Eosinophils (%) (Auto) 1.5 % Basophils (%) (Auto) 0.5 % Neutrophils # (Auto) 1.93 K/uL Lymphocytes # (Auto) 1.55 K/uL Monocytes # (Auto) 0.38 K/uL Eosinophils # (Auto) 0.06 K/uL Basophils # (Auto) 0.02 K/uL RDW Standard Deviation 49.8 fL RDW Coefficient of Variation 14.6 % Immature Granulocyte % (Auto) 0.0 % Immature Granulocyte # (Auto) 0.00 K/uL Sodium Level 143 mmol/L Potassium Level 3.5 mmol/L Chloride Level 110 mmol/L Carbon Dioxide Level 29 mmol/L Anion Gap 4.0 mmol/L Blood Urea Nitrogen 8 mg/dl Creatinine 0.85 mg/dl Est Creatinine Clear Calc Drug Dose 58.1 ml/min Estimated GFR () 79.3 Estimated GFR (Non- 68.5 BUN/Creatinine Ratio 8.9 Random Glucose 117 mg/dl Calcium Level 8.4 mg/dl Magnesium Level 2.5 mg/dl Troponin I 0.038 ng/ml 0.027 ng/ml Assessment & Plan CHEST PAIN, LIKELY FROM ANXIETY, HYPERTENSION ACUTE CORONARY SYNDROME RULED OUT Occurred while patient was having severe anxiety while inside an MRI machine Status post cardiac catheterization on November 2015 showing normal coronary arteries Troponins 3 sets negative Echocardiogram no signs of acute ischemia Blood pressure noted to be elevated on admission day (systolic BP in the 170s) Chest pain-free since admission Follow-up as an outpatient HYPERTENSION Not at goal Lisinopril increased from 2.5 daily to 5 mg p.o. daily Blood pressure improving Monitor as an outpatient History of carcinoid tumor, on monthly octreotide injections. Follow up with oncologist as scheduled. History of recent flu. Completing Tamiflu course DISPOSITION: Discharged to home Patient was advised to follow-up with primary care physician in 3-5 days Follow-up with oncologist as scheduled Current Inpatient Medications: Current Inpatient Medications Medications (Trade) Dose Ordered Sig/Yahaira Route Start Time Stop Time Status Last Admin Dose Admin Acetaminophen (Tylenol Tab) 650 mg Q4H PRN PO 06/14/17 23:30 07/14/17 23:29 Al Hydrox/Mg Hydrox/Simethicone (Maalox Max Susp) 15 ml Q4H PRN PO 06/14/17 23:30 07/14/17 23:29 Ondansetron HCl (Zofran Inj) 4 mg Q6H PRN IV 06/14/17 23:30 07/14/17 23:29 Nitroglycerin (Nitrostat Tab) 0.4 mg UD PRN SL 06/14/17 23:30 07/14/17 23:29 Polyethylene (Miralax Powder Packet) 17 gm DAILY PRN PO 06/14/17 23:30 07/14/17 23:29 Docusate Sodium (coLACE CAP) 100 mg BID PRN PO 06/14/17 23:30 07/14/17 23:29 Oseltamivir Phosphate (Tamiflu Cap) 75 mg BID PO 06/15/17 09:00 06/20/17 08:59 06/15/17 08:09 75 MG Cholecalciferol (Vitamin D Tab) 2,000 inter.unit QAM PO 06/15/17 09:00 07/15/17 08:59 06/15/17 08:10 2,000 INTER.UNIT Diphenhydramine HCl (Benadryl Cap) 50 mg DAILY PRN PO 06/14/17 23:30 07/14/17 23:29 06/15/17 10:44 25 MG Miscellaneous (Iv Fluids Completed) 1 ea PRN PRN N/A 06/15/17 01:45 06/15/18 01:44 Lisinopril (Zestril Tab) 5 mg QAM PO 06/16/17 09:00 07/16/17 08:59
--- NOTE | 2017-06-15 16:43 | Discharge Summary ---
Discharge Summary Date of Service Jun 15, 2017. Discharge Summary Admission Date: Jun 14, 2017 at 23:24 Discharge Date: Jun 15, 2017 Discharge Disposition: Home Principal Diagnosis: CHEST PAIN, LIKELY FROM ANXIETY, HYPERTENSION ACUTE CORONARY SYNDROME RULED OUT Secondary Diagnoses/Problems: Please refer to hospital course below. Procedures: Echocardiogram: * There is mild concentric left ventricular hypertrophy. * The left ventricular wall motion is normal. * No regional wall motion abnormalities noted. * The right ventricle is normal in size and function. * Aortic valve sclerosis mild, without significant aortic valvular stenosis. * There is mild mitral regurgitation. * Grade I diastolic dysfunction, (abnormal relaxation pattern). Pending Studies/Follow-Up: Please refer to hospital course below Medication Reconciliation New Medications: Lisinopril (Lisinopril) 5 Mg Tab 5 MG PO QAM for 30 Days, #30 TAB 0 Refills Continued Medications: Acetaminophen (Tylenol) 500 Mg Tab 500 MG PO Q8 PRN for Pain, TAB Cholecalciferol (Vitamin D-3) 2,000 Unit Tab 2000 INTER.UNIT PO QAM Diphenhydramine Hcl (Benadryl Allergy) 25 Mg Tab 50 MG PO DAILY PRN for Allergy Symptoms Docusate Sodium (Docusate Sodium) 100 Mg Cap 100 MG PO BID PRN for constipation for 30 Days, #60 CAP Octreotide Acetate (Sandostatin) 50 Mcg/Ml Inj Unknown Dose INJ MONTHLY Discontinued Medications: Lisinopril (Lisinopril) 5 Mg Tab 2.5 MG PO QAM Oseltamivir Phosphate (Tamiflu) 75 Mg Cap 75 MG PO BID, #2 CAP Admission Information HPI (per Admitting provider): HISTORY OF PRESENT ILLNESS: This is a 72-year-old female with past medical history significant for carcinoid tumor of the abdomen, coronary vasospasm, syncope, hypertension, allergic rhinitis who was recently in the hospital for flu and nausea and vomiting, thought to be from flu, was discharged home and she went and took an MRI for her carcinoid tumor. While in the MRI, she was panicked and she was claustrophobic and she worked up and then she had some chest pain, which lasted for about 5 minutes. She could not complete the MRI and she was brought into the ER. In the ER, patient was asymptomatic for last 5hrs. Her EKG was unremarkable. Her troponin was negative. Point of care troponin was 0.03. The patient currently resting comfortably and hemodynamically stable. She denies any nausea, vomiting, or shortness of breath. Has cough with white yellowish phlegm. No fever, no chills, no abdominal pain. Currently resting comfortably and hemodynamically stable. Physical Exam (per Admitting): GENERAL: The patient is of moderate build, not in distress. VITAL SIGNS: Temperature 36.9, pulse 71, respiratory rate 20, blood pressure 164/105, oxygen 97% on room air. HEENT: No pallor, no icterus. Pupils equal, round, and react to light. NECK: No JVD, no neck masses, no carotid bruits. CARDIOVASCULAR: S1, S2 heard. Regular rate and rhythm. No murmur, no gallop. RESPIRATORY SYSTEM: Clear to auscultation bilaterally. No wheezing, no crackles. ABDOMEN: Soft, bowel sounds present. Nontender, nondistended. CENTRAL NERVOUS SYSTEM: Cranial nerves II-XII are grossly nonfocal. LOWER EXTREMITIES: No edema, no erythema. Hospital Course CHEST PAIN, LIKELY FROM ANXIETY, HYPERTENSION ACUTE CORONARY SYNDROME RULED OUT Occurred while patient was having severe anxiety while inside an MRI machine Status post cardiac catheterization on November 2015 showing normal coronary arteries Troponins 3 sets negative Echocardiogram no signs of acute ischemia Blood pressure noted to be elevated on admission day (systolic BP in the 170s) Chest pain-free since admission Follow-up as an outpatient HYPERTENSION Not at goal Lisinopril increased from 2.5 daily to 5 mg p.o. daily Blood pressure improving Monitor as an outpatient History of carcinoid tumor, on monthly octreotide injections. Follow up with oncologist as scheduled. History of recent flu. Completing Tamiflu course DISPOSITION: Discharged to home Patient was advised to follow-up with primary care physician in 3-5 days Follow-up with oncologist as scheduled Total time spent on discharge = 30 minutes This includes examination of the patient, discharge planning, medication reconciliation, and communication with other providers. Discharge Instructions Discharge Instructions Date of Service Jun 15, 2017. Admission Reason for Admission: Substernal Precordial Chest Pain Discharge Discharge Diagnosis / Problem: CHEST PAIN Discharge Goals Goal(s): Diagnostic testing, Therapeutic intervention Activity Recommendations Activity Limitations: as noted below (RESUME ACTIVITY GRADUALLY TOLERATED, NO HEAVY EXERTION UNTIL RE-EVALUATED BY PRIMARY CARE PHYSICIAN) Lifting Limitations: until after follow-up appointment Exercise/Sports Limitations: until after follow-up appointment Driving or Machine Use: NO DRIVING UNTIL RE-EVALUATED BY PRIMARY CARE PHYSICIAN . Instructions / Follow-Up Instructions / Follow-Up PLEASE REFER TO YOUR NEW MEDICATION LIST AND FOLLOW INSTRUCTIONS CAREFULLY. CALL YOUR PRIMARY CARE PHYSICIAN OR RETURN TO ER IMMEDIATELY IF WITH RECURRENCE OF SYMPTOMS. FOLLOW UP WITH YOUR PRIMARY CARE PHYSICIAN IN 3-5 DAYS. Current Hospital Diet Patient's current hospital diet: AHA Diet (Heart Healthy) Discharge Diet Recommended Diet: AHA Diet (Heart Healthy) Procedures Procedures Performed: ECHOCARDIOGRAM OF THE HEART Pending Studies Studies pending at discharge: no Laboratory Results Hemoglobin A1c Test 06/10/17 06:34 Range/Units Estimated Average Glucose 134 mg/dl Hemoglobin A1c 6.3 H 4.5-5.6 % Medical Emergencies . Who to Call and When: Medical Emergencies: If at any time you feel your situation is an emergency, please call 911 immediately. . Non-Emergent Contact Non-Emergency issues call your: Primary Care Provider Call Non-Emergent contact if: you have a fever, your pain is not controlled, your pain is worsening, you have any medication questions . . "Provider Documentation" section prepared by Roddy Crowder.
[2017-06-15] MEDS ORDERED: NURSING VERBAL MED ORDER ONE (16:45)
[2017-06-16] MEDS ORDERED: LISINOPRIL 2.5 MG TAB PO SCH (09:00)
[2017-06-16] MEDS ORDERED: LISINOPRIL 5 MG TAB PO SCH (09:00)
== END 2017-06-15 17:03 | disposition home or self-care (01) ==
LOC: C.EDB 17:42 → C.MED 23:24 → UNDOADMOB 23:24 → ENRESERV 23:40
PROVIDERS: ADMIT Internal Medicine; ATTEND Internal Medicine
DX: R07.9 Chest pain, unspecified (principal); F41.9 Anxiety disorder, unspecified; I10 Essential (primary) hypertension; Z88.8 Allergy status to other drugs, medicaments and biological substances; Z88.6 Allergy status to analgesic agent; Z88.5 Allergy status to narcotic agent; Z91.040 Latex allergy status; Z79.899 Other long term (current) drug therapy; Z90.710 Acquired absence of both cervix and uterus; Z90.89 Acquired absence of other organs; Z90.49 Acquired absence of other specified parts of digestive tract; Z80.9 Family history of malignant neoplasm, unspecified; Z83.3 Family history of diabetes mellitus; Z82.49 Family history of ischemic heart disease and other diseases of the circulatory system

== ENCOUNTER → 2017-06-14 | Outpatient (CLI) | payer OTHER ==
[~2017-06-14] MED LIST changes: +ACET-1256 PO; +CHOL200027 PO; +DIPH1TAB87 PO; +GADOXETATE DISODIUM (NON-WT BASED PROCEDURE) IV PRN; -HYDR2.5C37 TOP; -HYDR25SU20 PR; +LSN5 PO; +NERVE TONIC PO; +OCTR50IN INJ; +OPTIRAY 320 IV PRN; +TMF75 PO
--- NOTE | 2017-06-14 15:23 | DIAGNOSTIC IMAGING REPORT ---
CT (CHEST) THORAX WITH CLINICAL HISTORY: 72 years-old Female presenting with MET CARCINOID TUMOR. TECHNIQUE: Multidetector CT imaging of the chest was performed after the administration of intravenous contrast. IV contrast: 93 mL of Optiray 320. A dose lowering technique was used consistent with the principles of ALARA (as low as reasonably achievable). COMPARISON: 01/07/2017. CT DOSE (mGy.cm): The estimated cumulative dose is 246.52 mGy.cm. 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 On soft tissue windows, normal thyroid and thoracic inlet. No axillary, supraclavicular, hilar, or mediastinal lymphadenopathy. Mild enlargement of the main pulmonary artery, which measures 3.2 cm in diameter. Atherosclerosis of the aorta. Normal heart size. No pericardial or pleural effusion. Redemonstration of the ill-defined suspicious hypodense lesion in the right hepatic lobe (series 4 image 271). Moderate diffuse intrahepatic bladder ductal dilatation as on prior exam. On lung windows, dependent reticulation and groundglass likely atelectasis. The previously noted groundglass subpleural nodule in the lateral basal right lower lobe now measures 7 mm (series 4 image 228), previously 9 mm, essentially unchanged. Few punctate solid nodules at the right lung base in the right lower lobe are also unchanged (series 4 images 257 and 258). Central airways patent. On bone windows, vague sclerotic lesion in the T8 vertebral body, indeterminate. The appearance is unchanged. No destructive osseous lesion. Degenerative changes of the thoracic spine. IMPRESSION: 1. No convincing evidence of intrathoracic metastatic disease. No lymphadenopathy. 2. Subcentimeter groundglass nodule in the right lower lobe is stable. Attention on follow-up. 3. Stable punctate solid right lower lobe pulmonary nodules. No new nodule. 4. Enlargement of the main pulmonary artery could suggest pulmonary hypertension. 5. Stable sclerotic indeterminate lesion in the T8 vertebral body. Electronically signed by: Shailesh Espino M.D. 06/14/2017 3:22 PM Dictated Date/Time: 06/14/2017 3:15 PM
--- NOTE | 2017-06-14 18:03 | DIAGNOSTIC IMAGING REPORT ---
MRI LIVER COMBO CLINICAL HISTORY: Metastatic carcinoid tumor. TECHNIQUE: Imaging was performed prior to and following IV contrast injection. (10 cc intravenous Eovist) COMPARISON STUDY: CT scan dated 06/09/2017, MRI the liver dated 01/03/2017 FINDINGS: Imaging was performed before and after administration of contrast. The patient was imaged in the coronal and axial planes. The spleen is the upper limits of normal in size measuring 11.5 cm. There is stable T2 bright 1 cm lesion within the L2 vertebra. No renal masses are visualized. There is a persistent left-sided extrarenal pelvis. The pancreas appears atrophic. There is no evidence of abdominal aortic aneurysm. There are and access of 20 hepatic masses. There is been interval increase in the size and number of the hepatic masses. An index bilobed right lobe hepatic mass measures 58 x 44 mm. This previously measured 51 x 40 mm. IMPRESSION: Progressive hepatic metastatic disease. Electronically signed by: Tanner uHrt M.D. 06/14/2017 6:02 PM Dictated Date/Time: 06/14/2017 5:53 PM
== END | disposition home or self-care (01) ==
LOC: C.CTS 14:56
PROVIDERS: ATTEND Internal Medicine Hematology & Oncology
DX: C7A.019 Malignant carcinoid tumor of the small intestine, unspecified portion (principal)

== ENCOUNTER 2017-09-23 16:34 | Emergency (ER) | payer OTHER ==
[~2017-09-23] VITALS: Ht 162.6 cm; Wt 71.0 kg
[~2017-09-23 16:34] MED LIST changes: +CHOL200027 PO; -CLC100X PO; -DIPH1TAB87 PO; -NERVE TONIC PO; +RIVA1TAB4 PO; -TMF75 PO
[2017-09-23 16:43] VITALS: TEMP 37.1; Ht 162.6 cm; Wt 71.0 kg
[2017-09-23] MEDS ORDERED: FENTANYL CITRATE INJ 50 MCG/1 ML 2 ML VIAL IV STA (18:29)
[2017-09-23] MEDS ORDERED: ONDANSETRON INJ 2 MG/ML 2 ML VIAL IV STA (18:29)
[2017-09-23 18:56] LABS: BASO % 0.6 %; BASO ABS # 0.06 K/uL (0-0.2); EOS ABS # 0.09 K/uL (0-0.5); HEMOGLOBIN 11.8 g/dL (12.0-16.0); IG# 0.02 K/uL (0.00-0.02); LYMPH % 18.6 %; LYMPH ABS # 1.76 K/uL (1.2-3.4); MEAN CELL VOLUME 90.9 fL (80-100); MEAN CORPUSCULAR HEMOGLOBIN 29.8 pg (25-34); MEAN CORPUSCULAR HGB CONC 32.8 g/dl (32-36); MEAN PLATELET VOLUME 10.4 fL (7.4-10.4); MONO % 7.4 %; NEUT % 72.2 %; NEUT ABS # 6.82 K/uL (1.4-6.5); PLATELET COUNT 390 K/uL (130-400); RED CELL DISTRIBUTION WIDTH CV 14.5 % (11.5-14.5); RED CELL DISTRIBUTION WIDTH SD 48.8 fL (36.4-46.3); WHITE BLOOD COUNT 9.45 K/uL (4.8-10.8)
[2017-09-23 19:19] LABS: CALCIUM 8.7 mg/dl (8.5-10.1); CREATININE 1.01 mg/dl (0.60-1.20)
--- NOTE | 2017-09-23 19:32 | DIAGNOSTIC IMAGING REPORT ---
LUMBAR SPINE WITHOUT CLINICAL HISTORY: Pain. Evaluate for fracture. History of carcinoid tumor. COMPARISON STUDY: CT of the abdomen and pelvis July 21, 2017. TECHNIQUE: Axial images of the lumbar spine were obtained without IV contrast. Sagittal and coronal reconstructions were viewed. FINDINGS: The known liver lesions are not well depicted on this unenhanced exam. The liver is partially imaged on this exam. Biliary ductal dilatation is unchanged from prior studies and likely related to prior cholecystectomy. There is no evidence for a bowel obstruction. Note is again made of a 3.8 x 1.6 cm right lower quadrant mesenteric mass which is similar to exam of July 21, 2017. There is no hydronephrosis. No acute lumbar spine fracture is identified. No suspicious osseous lesion is identified by CT. There is moderate multilevel disc space narrowing with osteophytosis and vacuum disc phenomenon. Central canal and neural foramen are suboptimally assessed by CT. IMPRESSION: 1. No acute lumbar spine fracture or subluxation. 2. Moderate multilevel degenerative disc disease and facet arthrosis of the lumbar spine. 3. Redemonstration of a 3.8 x 1.6 cm right lower quadrant mesenteric mass which is consistent with a carcinoid metastasis. Electronically signed by: Pierre El M.D. 09/23/2017 7:31 PM Dictated Date/Time: 09/23/2017 7:22 PM
--- NOTE | 2017-09-23 19:36 | DIAGNOSTIC IMAGING REPORT ---
CT OF THE PELVIS WITHOUT CONTRAST CLINICAL HISTORY: Pain. Evaluate for fracture. COMPARISON STUDY: CT of the abdomen and pelvis July 21, 2017. TECHNIQUE: Axial images of the pelvis were obtained without IV contrast. Sagittal and coronal reconstructions were viewed. FINDINGS: Multiple gas containing subcutaneous abnormalities of the back were present on previous exam. A large amount of stool is noted within the rectum. No pelvic lymphadenopathy is present. A right lower quadrant mesenteric mass is similar to previous exam. Sacroiliac joints and symphysis pubis are intact no acute fracture is identified within the pelvis or the hips. Note is made of severe joint space narrowing with osteophytosis and subchondral cystic change of both hips. No suspicious osseous lesion is noted. A small to moderate suspected right hip joint effusion is noted. IMPRESSION: 1. No acute fracture within the pelvis or hips. 2. Severe osteoarthritis of the bilateral hips. 3. Small to moderate suspected right hip joint effusion. Electronically signed by: Pierre El M.D. 09/23/2017 7:34 PM Dictated Date/Time: 09/23/2017 7:31 PM
--- NOTE | 2017-09-23 19:38 | DIAGNOSTIC IMAGING REPORT ---
CT OF THE RIGHT HIP WITHOUT CONTRAST CLINICAL HISTORY: Right groin pain. Evaluate for fracture COMPARISON STUDY: CT of the abdomen and pelvis July 21, 2017. TECHNIQUE: Axial images of the right hip were obtained without IV contrast. Sagittal and coronal reconstructions were viewed. FINDINGS: A large amount stool is incidentally noted within the rectum. Alignment of the right hip is anatomic. No acute fracture or suspicious lesion is identified on this examination. There is a suspected small to moderate right hip joint effusion. Severe joint space narrowing with osteophytosis and subchondral cystic change of the right hip is noted. IMPRESSION: 1. No acute fracture or dislocation of the right hip. 2. Severe osteoarthritis of the right hip. 3. Suspected small to moderate size right hip joint effusion. 4. Large amount stool within the rectum. Electronically signed by: Pierre El M.D. 09/23/2017 7:36 PM Dictated Date/Time: 09/23/2017 7:35 PM
[2017-09-23 19:55] VITALS: BP 143/89; PULSE 75; O2SAT 93
--- NOTE | 2017-09-23 23:15 | EMERGENCY ROOM VISIT NOTE ---
History Report prepared by Jonathan: Hu Mays Under the Supervision of: Dr. Rufino De M.D. First contact with patient: 18:19 Chief Complaint: GROIN PAIN Stated Complaint: PAIN IN HIP/GROIN History of Present Illness The patient is a 72 year old female who presents to the Emergency Room with complaints of constant pain in the groin, going into her back and right leg starting more than two weeks ago. She reports that the pain is worsened with movement and bearing weight. She also reports that her whole right leg intermittently becomes numb to the point where "it feels funny," and denies numbness in the groin. She has no numbness currently in her leg. She reports that she has been taking tramadol with some improvement, and notes that she sweats when it wears off. She denies urinary symptoms, abdominal pain, diarrhea , rectal bleeding, or loss of control of bowels or bladder. The patient reports that she receives an octreotide shot every month. She states that she never received surgery when she was transferred to [place] for her carcinoid tumor. She notes that she fell more than one month ago. She denies a history of intervertebral disc problems. She reports that she is on Xarelto. She notes that she had x-rays which did not show any fracture to her pelvis or hip. She was told to go to the ER for a CT scan for an occult fracture. She states that she can walk when using a walker. She states that she used to be on blood pressure medication. Source of History: patient Onset: more than 2 weeks ago Position: back, leg (right), other (groin) Timing: constant Modifying Factors (Worsening): movement, other (bearing weight) Associated Symptoms: + numbness, No fevers, No abdominal pain, No melena, No hematochezia, No diarrhea, No urinary symptoms Review of Systems See HPI for pertinent positives & negatives. A total of 10 systems reviewed and were otherwise negative. Past Medical & Surgical Medical Problems: (1) Carcinoid tumor of abdomen (2) Coronary vasospasm (3) HTN (hypertension) Surgical Problems: (1) History of hysterectomy (2) History of tonsillectomy and adenoidectomy (3) S/P appendectomy (4) S/P cholecystectomy Family History Cancer Diabetes mellitus Heart disease Hypertension Lung disease Social History Smoking Status: Never Smoker Alcohol Use: none Drug Use: none Marital Status: Housing Status: lives with significant other Occupation Status: retired Current/Historical Medications Scheduled Cholecalciferol (Vitamin D-3), 2,000 INTER.UNIT PO QAM Octreotide Acetate (Sandostatin), Unknown Dose INJ MONTHLY Rivaroxaban (Xarelto), 1 TAB PO DAILY Scheduled PRN Acetaminophen (Tylenol), 500 MG PO Q8 PRN for Pain Allergies Coded Allergies: Aspirin (Verified Allergy, Intermediate, "ASTHMA", 07/21/17) Celecoxib (Verified Allergy, Intermediate, "ASTHMA ATTACK", 07/21/17) Codeine (Verified Allergy, Intermediate, "FACE PUFFS UP", 07/21/17) Morphine (Verified Allergy, Intermediate, "FACE PUFFS UP", 07/21/17) Latex1 -Allergic Contact Dermititis (Verified Allergy, Mild, RASH, 07/21/17 ) Caffeine (Verified Adverse Reaction, Intermediate, HEADACHE, 07/21/17) Midazolam (Unverified Adverse Reaction, Intermediate, extreme anxiety, ) 2mg of versed given during heart catheterization, patient experienced extreme restlessness and anxiety. Fentanyl (Verified Adverse Reaction, Mild, DELIRIUM, 09/23/17) Pt self reports dizziness with fentanyl Lorazepam (Verified Adverse Reaction, Mild, ANXIOUS, 07/21/17) Uncoded Allergies: OPIOIDS (Adverse Reaction, Intermediate, HALLUCINATIONS, 12/05/15) Physical Exam Vital Signs Date Time Temp Pulse Resp B/P (MAP) Pulse Ox O2 Delivery O2 Flow Rate FiO2 09/23/17 19:55 75 16 143/89 93 09/23/17 18:22 69 18 148/101 97 Room Air 09/23/17 16:43 37.1 67 17 123/76 97 Room Air Physical Exam Constitutional: Vital signs reviewed. Eyes: Pupils are equal round reactive to light. Conjunctiva are noninjected. ENT: Pharynx is clear without erythema or exudate. Mucous membranes are moist. Neck supple without meningeal signs. Respiratory: Clear to auscultation bilaterally. Breath sounds are equal bilaterally. Cardiovascular: Regular rate and rhythm. No rubs or gallops. GI: Soft, nondistended and nontender. Bowel sounds are present. Musculoskeletal: No midline tenderness to thoracic or lumbar spine. Mild right SI joint tenderness. No swelling, erythema or warmth to right hip. Pain with ROM of hip. Normal distal pulse Integumentary: No cyanosis. Neurological: The patient is awake and alert. Motor and sensation intact in lower extremities. Limited exam of proximal right leg due to pain. Psychiatric: Normal affect. Medical Decision & Procedures ER Provider Diagnostic Interpretation: Radiology results as stated below per my review and the radiologist's interpretation: Patient: TRACY CARDENAS Address1: [address] [place] [address] Rec: [id number] Address2: Acct ID: [id number] [facility] Zip: [place] [address] Date: 1945 Sex: F Room/Bed: Ref Phy: Kerri Schulz PA-C SC: C.EDB Att Phy: Report #: [id number] [place] Phy: Kerri Schulz PA-C Test: HIPWO Admit Phy: Research Archaeologist: RAMON Interpreting Phy: Pierre El MD Diagnosis: PAIN IN HIP/GROIN Ordering Phy: Rufino De MD Service Date: 09/23/17 Admit Date: 09/23/17 MNE: [id number] CONF: DICTATED BY: Pierre El MD]] CC: Kerri Schulz PA-C, Thomas S., M.D. Endcc: [~ rep ct add3]] CT OF THE RIGHT HIP WITHOUT CONTRAST CLINICAL HISTORY: Right groin pain. Evaluate for fracture COMPARISON STUDY: CT of the abdomen and pelvis July 21, 2017. TECHNIQUE: Axial images of the right hip were obtained without IV contrast. Sagittal and coronal reconstructions were viewed. FINDINGS: A large amount stool is incidentally noted within the rectum. Alignment of the right hip is anatomic. No acute fracture or suspicious lesion is identified on this examination. There is a suspected small to moderate right hip joint effusion. Severe joint space narrowing with osteophytosis and subchondral cystic change of the right hip is noted. IMPRESSION: 1. No acute fracture or dislocation of the right hip. 2. Severe osteoarthritis of the right hip. 3. Suspected small to moderate size right hip joint effusion. 4. Large amount stool within the rectum. Electronically signed by: Pierre El M.D. 09/23/2017 7:36 PM Dictated Date/Time: 09/23/2017 7:35 PM Patient: TRACY CARDENAS Address1: [address] [place] [address] Rec: [id number] Address2: Acct ID: [id number] [facility] Zip: [place] [address] Date: 1945 Sex: F Room/Bed: Ref Phy: Kerri Schulz PA-C SC: JERROD Att Phy: Report #: [id number] [place] Phy: Kerri Schulz PA-C Test: LSWO Admit Phy: Research Archaeologist: RAMON Interpreting Phy: Pierre El MD Diagnosis: PAIN IN HIP/GROIN Ordering Phy: Rufino De MD Service Date: 09/23/17 Admit Date: 09/23/17 MNE: [id number] CONF: DICTATED BY: Pierre El MD]] CC: Kerri Schulz PA-C, Thomas S., M.D. Endcc: [~ rep ct add3]] LUMBAR SPINE WITHOUT CLINICAL HISTORY: Pain. Evaluate for fracture. History of carcinoid tumor. COMPARISON STUDY: CT of the abdomen and pelvis July 21, 2017. TECHNIQUE: Axial images of the lumbar spine were obtained without IV contrast. Sagittal and coronal reconstructions were viewed. FINDINGS: The known liver lesions are not well depicted on this unenhanced exam. The liver is partially imaged on this exam. Biliary ductal dilatation is unchanged from prior studies and likely related to prior cholecystectomy. There is no evidence for a bowel obstruction. Note is again made of a 3.8 x 1.6 cm right lower quadrant mesenteric mass which is similar to exam of July 21, 2017. There is no hydronephrosis. No acute lumbar spine fracture is identified. No suspicious osseous lesion is identified by CT. There is moderate multilevel disc space narrowing with osteophytosis and vacuum disc phenomenon. Central canal and neural foramen are suboptimally assessed by CT. IMPRESSION: 1. No acute lumbar spine fracture or subluxation. 2. Moderate multilevel degenerative disc disease and facet arthrosis of the lumbar spine. 3. Redemonstration of a 3.8 x 1.6 cm right lower quadrant mesenteric mass which is consistent with a carcinoid metastasis. Electronically signed by: Pierre El M.D. 09/23/2017 7:31 PM Dictated Date/Time: 09/23/2017 7:22 PM Patient: TRACY CARDENAS Address1: [address] [place] [address] Rec: [id number] Address2: Acct ID: [id number] [facility] Zip: [place] [address] Date: 1945 Sex: F Room/Bed: Ref Phy: Kerri Schulz PA-C SC: JERROD Att Phy: Report #: [id number] [place] Phy: Kerri Schulz PA-C Test: PVSWO Admit Phy: Research Archaeologist: RAMON Interpreting Phy: Pierre El MD Diagnosis: PAIN IN HIP/GROIN Ordering Phy: Rufino De MD Service Date: 09/23/17 Admit Date: 09/23/17 MNE: [id number] CONF: DICTATED BY: Pierre El MD]] CC: Kerri Schulz PA-C, Thomas S., M.D. Endcc: [~ rep ct add3]] CT OF THE PELVIS WITHOUT CONTRAST CLINICAL HISTORY: Pain. Evaluate for fracture. COMPARISON STUDY: CT of the abdomen and pelvis July 21, 2017. TECHNIQUE: Axial images of the pelvis were obtained without IV contrast. Sagittal and coronal reconstructions were viewed. FINDINGS: Multiple gas containing subcutaneous abnormalities of the back were present on previous exam. A large amount of stool is noted within the rectum. No pelvic lymphadenopathy is present. A right lower quadrant mesenteric mass is similar to previous exam. Sacroiliac joints and symphysis pubis are intact no acute fracture is identified within the pelvis or the hips. Note is made of severe joint space narrowing with osteophytosis and subchondral cystic change of both hips. No suspicious osseous lesion is noted. A small to moderate suspected right hip joint effusion is noted. IMPRESSION: 1. No acute fracture within the pelvis or hips. 2. Severe osteoarthritis of the bilateral hips. 3. Small to moderate suspected right hip joint effusion. Electronically signed by: Pierre El M.D. 09/23/2017 7:34 PM Dictated Date/Time: 09/23/2017 7:31 PM Laboratory Results 09/23/17 18:44 Red Blood Count 3.96, Mean Corpuscular Volume 90.9, Mean Corpuscular Hemoglobin 29.8, Mean Corpuscular Hemoglobin Concent 32.8, Mean Platelet Volume 10.4, Neutrophils (%) (Auto) 72.2, Lymphocytes (%) (Auto) 18.6, Monocytes (%) (Auto) 7.4, Eosinophils (%) (Auto) 1.0, Basophils (%) (Auto) 0.6, Neutrophils # (Auto) 6.82, Lymphocytes # (Auto) 1.76, Monocytes # (Auto) 0.70, Eosinophils # (Auto) 0.09, Basophils # (Auto) 0.06 09/23/17 18:44 09/23/17 19:37 Test 09/23/17 18:44 White Blood Count 9.45 K/uL (4.8-10.8) Red Blood Count 3.96 M/uL (4.2-5.4) Hemoglobin 11.8 g/dL (12.0-16.0) Hematocrit 36.0 % (37-47) Mean Corpuscular Volume 90.9 fL (80-100) Mean Corpuscular Hemoglobin 29.8 pg (25-34) Mean Corpuscular Hemoglobin Concent 32.8 g/dl (32-36) Platelet Count 390 K/uL (130-400) Mean Platelet Volume 10.4 fL (7.4-10.4) Neutrophils (%) (Auto) 72.2 % Lymphocytes (%) (Auto) 18.6 % Monocytes (%) (Auto) 7.4 % Eosinophils (%) (Auto) 1.0 % Basophils (%) (Auto) 0.6 % Neutrophils # (Auto) 6.82 K/uL (1.4-6.5) Lymphocytes # (Auto) 1.76 K/uL (1.2-3.4) Monocytes # (Auto) 0.70 K/uL (0.11-0.59) Eosinophils # (Auto) 0.09 K/uL (0-0.5) Basophils # (Auto) 0.06 K/uL (0-0.2) RDW Standard Deviation 48.8 fL (36.4-46.3) RDW Coefficient of Variation 14.5 % (11.5-14.5) Immature Granulocyte % (Auto) 0.2 % Immature Granulocyte # (Auto) 0.02 K/uL (0.00-0.02) Anion Gap 10.0 mmol/L (3-11) Est Creatinine Clear Calc Drug Dose 48.7 ml/min Estimated GFR () 64.4 Estimated GFR (Non- 55.6 BUN/Creatinine Ratio 13.0 (10-20) Calcium Level 8.7 mg/dl (8.5-10.1) Laboratory results as reviewed by me. Medications Administered Medications (Trade) Dose Ordered Sig/Yahaira Route Start Time Stop Time Status Last Admin Dose Admin Ondansetron HCl (Zofran Inj) 4 mg NOW STAT IV 09/23/17 18:29 09/23/17 18:32 DC 09/23/17 18:47 4 MG ED Course 1821: The patient was evaluated in room B2. A complete history and physical exam was performed. 1828: Ordered Zofran 4 mg IV, Fentanyl 50 mcg IV 1929: The patient refused fentanyl or strong pain medications. 1944: I reviewed test results with the patient and advised follow up with orthopedics and her PCP. Declining pain medications, but will take ibuprofen. Doesn't want to wait for her repeat potassium. The patient will be discharged. Medical Decision This is a 72-year-old female presents with pain in her lower back, groin and leg. Differential diagnosis includes lumbar disc disease, radiculopathy, pathologic fracture, arthritis, sacroiliitis. I did perform a limited focused review of portions of the patient's old chart on the electronic medical record. The patient was admitted July 26 for a small bowel obstruction and was transferred to [place] for operative care a carcinoid tumor. I did evaluate the patient as noted above. The patient is presenting with symptoms that seem most consistent with lumbar disc disease. She has pain in her right lower back which radiates into her groin and down her leg with intermittent paresthesias down the right leg. She has no signs of cauda equina syndrome. I doubt DVT given she is on Xarelto and has no swelling to the right leg. IV access was established. I did order IV fentanyl for the patient but she declined it. She stated she did not want any strong pain medications. She refused any oral medications as codeine and similar products make her ill. I did order and review the patient's blood work as noted in the electronic medical record. Her white blood cell count is not elevated. I did order a CT of the pelvis, hip and lumbar spine. I did review the images myself as well as the radiology report as described above. She does have significant arthritis to the hip. She also has a small joint effusion. I doubt an infectious etiology is likely. Her white count is not elevated, she has had no fevers and she has had symptoms for 2-3 weeks. She does have degenerative disc disease. I did recommend she follow closely with her doctor as well as her orthopedic doctor for further care and evaluation. She was given return instructions as outlined below. She will take Motrin for pain. Medication Reconcilliation Current Medication List: was personally reviewed by me Blood Pressure Screening Patient's blood pressure: Normal blood pressure Blood pressure disposition: Did not require urgent referral Impression Primary Impression: Right hip pain Additional Impressions: Lumbar radiculopathy Anticoagulated Scribe Attestation The scribe's documentation has been prepared under my direct and personally reviewed by me in its entirety. I confirm that the note above accurately reflects all work, treatment, procedures, and medical decision making performed by me. Departure Information Dispostion Home / Self-Care Referrals Kerri Schulz PA-C (PCP) Forms HOME CARE DOCUMENTATION FORM, IMPORTANT VISIT INFORMATION, WORK / SCHOOL INSTRUCTIONS Patient Instructions My [facility] Additional Instructions You have been examined and treated today on an emergency basis only. This is not a substitute for, or an effort to provide, complete comprehensive medical care. It is impossible to recognize and treat all injuries or illnesses in a single emergency department visit. It is therefore important that you follow up closely with your physician and orthopedic doctor. Call as soon as possible for an appointment. Return for worsening symptoms or if you develop fever, vomiting, loss of control of your bowel or bladder, numbness or weakness to your legs, numbness to your private area, difficulty urinating, redness or swelling to your hip, chest pain, shortness of breath or any other concerning symptoms. Problem Qualifiers
== END 2017-09-23 19:55 | disposition home or self-care (01) ==
LOC: C.EDB 16:35
DX: M51.16 Intervertebral disc disorders with radiculopathy, lumbar region (principal); M16.0 Bilateral primary osteoarthritis of hip; Z79.01 Long term (current) use of anticoagulants; Z88.6 Allergy status to analgesic agent; Z91.040 Latex allergy status; Z88.8 Allergy status to other drugs, medicaments and biological substances; Z88.4 Allergy status to anesthetic agent; Z88.5 Allergy status to narcotic agent

== ENCOUNTER 2018-04-09 21:06 | Inpatient (IN) ==
[2018-04-09] MEDS ORDERED: DiphenhydrAMINE HCL 50 MG/ML VIAL IV STA (21:44)
[2018-04-09] MEDS ORDERED: ALBUTEROL 0.083% NEBU SOLN 3 ML VIAL NEB STA (21:44)
[2018-04-09] MEDS ORDERED: ACETAMINOPHEN 500 MG TAB PO STA (21:44)
[2018-04-09] MEDS ORDERED: SODIUM CHLORIDE 0.9% 1000ML 1,000 ML IV SCH (21:45)
[2018-04-09 21:59] LABS: Basophils # (auto) 0.04 K/uL (0-0.2); Basophils % (auto) 0.5 %; Eosinophils # (auto) 0.04 K/uL (0-0.5); Eosinophils % (auto) 0.5 %; Immature Granulocytes # (auto) 0.01 K/uL (0.00-0.02); Immature Granulocytes % (auto) 0.1 %; Lymphocytes # (auto) 1.39 K/uL (1.2-3.4); Mean Corpuscular Hgb Conc 32.5 g/dL (32-36); Mean Corpuscular Volume 88.3 fL (80-100); Mean Platelet Volume 11.4 fL (7.4-10.4); Monocytes # (auto) 0.33 K/uL (0.11-0.59); Neutrophils # (auto) 6.38 K/uL (1.4-6.5); Neutrophils % (auto) 77.9 %; Platelet Count 340 K/uL (130-400); RDW Standard Deviation 51.5 fL (36.4-46.3); Red Blood Count 4.53 M/uL (4.2-5.4); White Blood Count 8.19 K/uL (4.8-10.8)
[2018-04-09 22:08] LABS: Appearance Urine Clear (Clear); Bacteria Urine Automated Negative (Negative); Bilirubin Urine Negative (Negative); Color Urine Yellow; Epithelial Cell Urine Auto >30 /lpf (0-5); Glucose Urine UA Negative (Negative); Ketones Urine Negative (Negative); Leukocyte Esterase Urine 2+ (Negative); Nitrite Urine Negative (Negative); Protein Urine Negative (Negative); Urobilinogen Urine Negative (Negative)
[2018-04-09 22:11] LABS: iSTAT Hemoglobin 13.6 g/dl (12.0-16.0); iSTAT Ionized Calcium 1.09 mmol/l (1.12-1.32)
[2018-04-09 22:16] LABS: Albumin Level 3.3 gm/dl (3.4-5.0); BUN Creatinine Ratio 16.1 (10-20); Calcium 8.8 mg/dl (8.5-10.1); Creatinine Clr Calc Pharmacy 46.3 ml/min; Est GFR (African American) 64.7; Est GFR (Non-African American) 55.8; Magnesium 2.2 mg/dl (1.8-2.4); Potassium 3.9 mmol/L (3.5-5.1)
[2018-04-09 22:26] LABS: Albumin Globulin Ratio 0.8 (0.9-2); Bilirubin,Total 0.4 mg/dl (0.2-1); Creatine Kinase MB 1.4 ng/ml (0.5-3.6); Globulin 4.3 gm/dl (2.5-4.0); Total Protein 7.6 gm/dl (6.4-8.2); Troponin I 0.016 ng/ml (0-0.045)
[2018-04-09] MEDS ORDERED: cefTRIAXone SODIUM 1,000 MG/50 ML BAG IV STA (22:28)
[2018-04-09] MEDS ORDERED: IOVERSOL 100ml IV PRN (22:38)
--- NOTE | 2018-04-09 22:59 | CT Scan Report ---
CT OF THE ABDOMEN AND PELVIS WITH CONTRAST CLINICAL HISTORY: Diffuse abdominal pain. Metastatic carcinoid tumor. COMPARISON STUDY: CT of the pelvis September 23, 2017. CT of the abdomen and pelvis July 21, 2017. TECHNIQUE: Following IV administration of 93 mL of Optiray-320, axial images of the abdomen and pelvi s were obtained from the lung bases to the proximal femurs. Images were reviewed in the axial, sagitt al, and coronal planes. IV contrast was administered without complication. Automated exposure contro l was utilized for the study. A dose lowering technique was utilized adhering to the principles of A KATIE. CT DOSE: 332.31 mGy.cm FINDINGS: A few nodules within the lower lungs are unchanged from earlier exams. These are benign giv en stability. Several hepatic metastases have significantly increased in size since prior contrast en hanced CT of June 09, 2017. Index right hepatic lobe lesion measures 8.8 x 6 cm. It previously measu red 6.1 x 4.7 cm. Moderate biliary ductal dilatation status post cholecystectomy has mildly increased . There is no hydronephrosis. The spleen and adrenal glands are normal. There is no evidence for a ciaran wel obstruction. No pneumatosis, free air or portal venous gas is present. The appendix is not well v isualized. An ill-defined right lower quadrant mesenteric mass is similar to prior exams, measuring 2 .9 x 2 cm. As before, this is adjacent to a small bowel loop. This suggests a [place] metastasis. The p rimary lesion may be within the adjacent small bowel loop. There is no ascites. There are no suspicio us osseous lesions. Severe arthritis of both hips is noted. IMPRESSION: 1. Moderate increase in size of multiple hepatic metastases from prior contrast enhanced CT of June 09, 2017. 2. Moderate biliary ductal dilatation, slightly increased since prior exam. This may be related to pr evious cholecystectomy however could be correlated with obstructive liver function tests. 3. No bowel obstruction. 4. No significant change in the right lower quadrant mesenteric mass which suggests a [place] metastasi s given the history of carcinoid tumor. Electronically signed by: Pierre El M.D. 04/09/2018 10:57 PM
--- NOTE | 2018-04-09 23:02 | XRay Report ---
XR chest 1V portable CLINICAL HISTORY: Syncope. COMPARISON STUDY: Chest radiograph June 14, 2017. FINDINGS: There is no pneumothorax or pleural effusion. Cardiomediastinal silhouette is stable. Linea r left midlung opacity suggests atelectasis. The appearance of the chest is unchanged. IMPRESSION: No acute cardiopulmonary findings. Electronically signed by: Pierre El M.D. 04/09/2018 11:01 PM
--- NOTE | 2018-04-10 00:42 | Emergency Department Note ---
Entered by Miladis Cheema acting as a scribe for Deny Thayer MD History of Present Illness General Chief complaint: Syncope Stated complaint: SYNCOPE X 3 Time Seen by Provider: 04/09/18 21:23 Source: patient History of Present Illness Onset (ago): unknown ([place]) Location: left and right (generalized) Pain Consistency: + now resolved Quality: + other (syncope) Associated symptoms: + other (dizzy, lightheaded, abdominal pain, chest heaviness ) The patient is a 73 year old female who presents to the Emergency Room with complaints of a resolved episode of syncopal episode that occurred [place]. The patient's daughter states she became flush, dizzy, weak, and had troubles with her vision. The patient went into a stare for about 1-2 minutes. She states this has not happened before. She also complains of abdominal pain and chest heaviness that started today. She states she takes Benadryl for her asthma She notes she has been eating and drinking regularly. The patient reports she has a history of carcinoid tumors, which she gets shots monthly for. Home Medications Home Medications Medication Instructions Recorded Confirmed Type acetaminophen 1,000 mg PO Q6H PRN 04/09/18 04/09/18 History cholecalciferol (vitamin D3) 2,000 units PO DAILY 04/09/18 04/09/18 History [Vitamin D3] diphenhydramine HCl [Benadryl 25 mg PO DIRECTED PRN 04/09/18 04/09/18 History Allergy] ibuprofen 200 mg PO Q6H PRN 04/09/18 04/09/18 History metoprolol succinate 25 mg PO QPM 04/09/18 04/09/18 History rivaroxaban 20 mg PO DIRECTED 04/09/18 04/09/18 History cephalexin [Keflex] 500 mg PO BID #6 cap 04/10/18 Rx Allergies Allergy/AdvReac Type Severity Reaction Status Date / Time aspirin Allergy Intermediate "ASTHMA" Verified 04/09/18 21:42 celecoxib Allergy Intermediate "ASTHMA Verified 04/09/18 21:42 ATTACK" codeine Allergy Intermediate "FACE Verified 04/09/18 21:42 PUFFS UP" morphine Allergy Intermediate "FACE Verified 04/09/18 21:42 PUFFS UP" latex Allergy Mild RASH Verified 04/09/18 21:42 caffeine AdvReac Intermediate HEADACHE Verified 04/09/18 21:42 midazolam AdvReac Intermediate extreme Verified 04/09/18 21:42 anxiety fentanyl AdvReac Mild DELIRIUM Verified 04/09/18 21:42 lorazepam AdvReac Mild ANXIOUS Verified 04/09/18 21:42 OPIOIDS AdvReac Intermediate HALLUCINATI Uncoded 04/09/18 21:42 ONS Past Med/Surg History Medical History Carcinoid tumor of abdomen Hypertension Social History marital status: Current Living Situation: Spouse and Family Feels Safe at Home: Yes Safety Concerns: Feels Safe At This Time Smoking Status: Never smoker Hx Alcohol Use: No Hx Substance Use: No Beliefs That Will Affect Care: None Preferred Language: Pashto Review of Systems See HPI for pertinent positives & negatives. and A total of 10 systems reviewed and were otherwise negative Physical Exam Vital Signs Vital Signs - 24 hr 04/10/18 03:05 04/10/18 07:06 04/10/18 08:10 Temperature 36.7 C 37.0 C Temperature Source Oral Oral Pulse Rate 53 L Pulse Rate [Right Finger] 60 56 L Respiratory Rate 16 19 Respiratory Effort / Characteristics Non-Labored Respiratory Depth Normal Blood Pressure [Right Arm] 124/77 132/70 Blood Pressure Mean [Right Arm] 92 90 Blood Pressure Position [Right Arm] Lying Pulse Oximetry 97 97 Oxygen Delivery Method Room Air 04/10/18 12:05 04/10/18 15:21 04/10/18 15:29 Temperature 36.7 C 36.7 C 36.2 C L Temperature Source Oral Oral Pulse Rate Pulse Rate [Right Finger] 69 69 67 Respiratory Rate 18 18 18 Respiratory Effort / Characteristics Non-Labored Respiratory Depth Normal Blood Pressure [Right Arm] 148/73 H 148/73 H 173/85 H Blood Pressure Mean [Right Arm] 98 114 Blood Pressure Position [Right Arm] Sitting Sitting Pulse Oximetry 99 99 99 Oxygen Delivery Method Room Air Room Air GENERAL: Awake, alert, well-appearing, in no acute distress HENT: Normocephalic, atraumatic. Oropharynx unremarkable. EYES: Normal conjunctiva. Sclera non-icteric. NECK: Supple. No nuchal rigidity. FROM. No JVD. RESPIRATORY: Clear to auscultation. CARDIAC: Regular rate, normal rhythm. Extremities warm and well perfused. Pulses equal. ABDOMEN: Soft, non-distended. No tenderness to palpation. No rebound or guarding. No masses. RECTAL: Deferred. MUSCULOSKELETAL: Chest examination reveals no tenderness. The back is symmetrical on inspection without obvious abnormality. There is no CVA tenderness to palpation. No joint edema. LOWER EXTREMITIES: Calves are equal size bilaterally and non-tender. No edema. No discoloration. NEURO: Normal sensorium. No sensory or motor deficits noted. SKIN: No rash or jaundice noted. Course 2122: Past medical records reviewed. The patient was evaluated in room C6, and a complete history and physical examination were performed. 2320: I [facility] He agrees to evaluate the patient for further management. Consultations Consultation #1: [facility] He agrees to evaluate the patient for further management. Time: 23:20 Administered Medications Discontinued Medications Acetaminophen (Tylenol) 1,000 mg PO NOW STA Stop: 04/09/18 21:45 Last Admin: 04/09/18 21:59 Dose: 1,000 mg Albuterol (Ventolin 0.083% 2.5mg/3ml) 2.5 mg NEB NOW STA Stop: 04/09/18 21:45 Last Admin: 04/09/18 21:59 Dose: 2.5 mg Diphenhydramine HCl (Benadryl) 25 mg IV NOW STA Stop: 04/09/18 21:45 Last Admin: 04/09/18 21:59 Dose: 25 mg Diphenhydramine HCl (Benadryl Capsule) 25 mg PO Q6H PRN PRN Reason: Allergic Symptoms Stop: 05/10/18 01:16 Last Admin: 04/10/18 12:24 Dose: 25 mg Sodium Chloride (Nss 1000ml) 1,000 mls @ 999 mls/hr IV .Q1H1M VIVEK Stop: 04/09/18 22:45 Last Infusion: 04/09/18 23:05 Dose: 0 mls/hr Admin: 04/09/18 21:59 Dose: 999 mls/hr Ceftriaxone Sodium (Rocephin) 1,000 mg in 50 mls @ 100 mls/hr IV NOW STA Stop: 04/09/18 22:57 Last Infusion: 04/09/18 23:05 Dose: 0 mls/hr Admin: 04/09/18 22:38 Dose: 100 mls/hr Sodium Chloride (Nss 1000ml) 1,000 mls @ 75 mls/hr IV .[id number] VIVEK Stop: 05/10/18 01:16 Last Admin: 04/10/18 01:55 Dose: 75 mls/hr Influenza Virus Vaccine (Fluzone High-Dose Pf) 0.5 ml IM .ONCE ONE Stop: 04/10/18 08:01 Last Admin: 04/10/18 14:35 Dose: Not Given Ioversol (Optiray 320 100ml) 100 ml IV ONCE PRN PRN Reason: Interaction Checking Stop: 04/13/18 22:37 Last Admin: 04/09/18 22:39 Dose: 93 ml Vitamin D (Vitamin D3) 2,000 units PO DAILY VIVEK Stop: 05/10/18 08:59 Last Admin: 04/10/18 08:14 Dose: 2,000 units Medical Decision Making Differential Diagnosis Etiologies such as vasovagal event, infection, hypoglycemia, electrolyte abnormalities, cardiac sources, intracerebral event, toxicologic, neurologic, as well as others were entertained. Medical Records Attestation: I reviewed the patient's medical records. Home Medications Current Medication List: was personally reviewed by me Laboratory Data Attestation: I reviewed the patient's lab results. Result diagrams: 04/10/18 05:16 04/10/18 05:16 Lab Results 04/09/18 04/09/18 04/09/18 Range/Units 21:49 21:49 21:55 WBC 8.19 (4.8-10.8) K/uL RBC 4.53 (4.2-5.4) M/uL Hgb 13.0 (12.0-16.0) g/dL POC Hgb (12.0-16.0) g/dl Hct 40.0 (37-47) % POC Hct (37-47) % MCV 88.3 (80-100) fL MCH 28.7 (25-34) pg MCHC 32.5 (32-36) g/dL RDW Std Deviation 51.5 H (36.4-46.3) fL RDW Coeff of Myra 16.0 H (11.5-14.5) % Plt Count 340 (130-400) K/uL MPV 11.4 H (7.4-10.4) fL Immature Gran % (Auto) 0.1 % Neut % (Auto) 77.9 % Lymph % (Auto) 17.0 % Taylor % (Auto) 4.0 % Eos % (Auto) 0.5 % Baso % (Auto) 0.5 % Immature Gran # (Auto) 0.01 (0.00-0.02) K/uL Neut # (Auto) 6.38 (1.4-6.5) K/uL Lymph # (Auto) 1.39 (1.2-3.4) K/uL Taylor # (Auto) 0.33 (0.11-0.59) K/uL Eos # (Auto) 0.04 (0-0.5) K/uL Baso # (Auto) 0.04 (0-0.2) K/uL POC Sodium (135-144) mEq/L Sodium 140 (136-145) mmol/L POC Potassium (3.3-5.0) mEq/L Potassium 3.9 (3.5-5.1) mmol/L POC Chloride (101-112) mEq/L Chloride 107 (98-107) mmol/L Carbon Dioxide 25 (21-32) mmol/L POC Total CO2 (24-31) mEq/l Anion Gap 8.0 (3-11) POC Anion Gap (16-25) mmol/L POC BUN (7-18) mg/dl BUN 16 (7-18) mg/dl Creatinine 1.00 (0.6-1.2) mg/dl POC Creatinine (0.6-1.3) mg/dl Est Cr Clr Drug Dosing 46.3 ml/min Est GFR ( Amer) 64.7 Est GFR (Non-Af Amer) 55.8 BUN/Creatinine Ratio 16.1 (10-20) Glucose 145 H (70-99) mg/dl POC Glucose (other) (70-99) mg/dl Calcium 8.8 (8.5-10.1) mg/dl POC Ioniz Calcium Bryan (1.12-1.32) mmol/l Magnesium 2.2 (1.8-2.4) mg/dl Total Bilirubin 0.4 (0.2-1) mg/dl AST 74 H (15-37) U/L ALT 51 (12-78) U/L Alkaline Phosphatase 227 H (45-117) U/L Total Creatine Kinase 84 (26-192) U/L CK-MB (CK-2) 1.4 (0.5-3.6) ng/ml CK/CKMB % Calc 1.7 (0-3.0) Troponin I 0.016 (0-0.045) ng/ml Total Protein 7.6 (6.4-8.2) gm/dl Albumin 3.3 L (3.4-5.0) gm/dl Globulin 4.3 H (2.5-4.0) gm/dl Albumin/Globulin Ratio 0.8 L (0.9-2) TSH 3.260 (0.300-4.500) uIu/ml Urine Color Yellow Urine Appearance Clear (Clear) Urine pH 7.0 (4.5-7.5) Ur Specific [place] 1.010 (1.000-1.030) Urine Protein Negative (Negative) Urine Glucose (UA) Negative (Negative) Urine Ketones Negative (Negative) Urine Blood Negative (Negative) Urine Nitrite Negative (Negative) Urine Bilirubin Negative (Negative) Urine Urobilinogen Negative (Negative) Ur Leukocyte Esterase 2+ H (Negative) Urine WBC (Auto) 5-10 H (0-5) /hpf Urine RBC (Auto) 0-4 (0-4) /hpf U Hyaline Cast (Auto) 1-5 (0-5) /lpf U Epithel Cells (Auto) >30 H (0-5) /lpf Urine Bacteria (Auto) Negative (Negative) 04/09/18 04/10/18 04/10/18 Range/Units 21:59 05:16 05:16 WBC 7.63 (4.8-10.8) K/uL RBC 3.68 L (4.2-5.4) M/uL Hgb 10.7 L (12.0-16.0) g/dL POC Hgb 13.6 (12.0-16.0) g/dl Hct 33.0 L (37-47) % POC Hct 40 (37-47) % MCV 89.7 (80-100) fL MCH 29.1 (25-34) pg MCHC 32.4 (32-36) g/dL RDW Std Deviation 52.8 H (36.4-46.3) fL RDW Coeff of Myra 16.1 H (11.5-14.5) % Plt Count 279 (130-400) K/uL MPV 11.1 H (7.4-10.4) fL Immature Gran % (Auto) 0.1 % Neut % (Auto) 62.6 % Lymph % (Auto) 28.2 % Taylor % (Auto) 6.3 % Eos % (Auto) 2.0 % Baso % (Auto) 0.8 % Immature Gran # (Auto) 0.01 (0.00-0.02) K/uL Neut # (Auto) 4.78 (1.4-6.5) K/uL Lymph # (Auto) 2.15 (1.2-3.4) K/uL Taylor # (Auto) 0.48 (0.11-0.59) K/uL Eos # (Auto) 0.15 (0-0.5) K/uL Baso # (Auto) 0.06 (0-0.2) K/uL POC Sodium 141 (135-144) mEq/L Sodium 142 (136-145) mmol/L POC Potassium 4.0 (3.3-5.0) mEq/L Potassium 3.6 (3.5-5.1) mmol/L POC Chloride 105 (101-112) mEq/L Chloride 109 H (98-107) mmol/L Carbon Dioxide 27 (21-32) mmol/L POC Total CO2 22 L (24-31) mEq/l Anion Gap 6.0 (3-11) POC Anion Gap 19.0 (16-25) mmol/L POC BUN 13 (7-18) mg/dl BUN 12 (7-18) mg/dl Creatinine 0.85 (0.6-1.2) mg/dl POC Creatinine 0.8 (0.6-1.3) mg/dl Est Cr Clr Drug Dosing 55.9 ml/min Est GFR ( Amer) 78.8 Est GFR (Non-Af Amer) 68.0 BUN/Creatinine Ratio 14.0 (10-20) Glucose 113 H (70-99) mg/dl POC Glucose (other) 141 H (70-99) mg/dl Calcium 8.2 L (8.5-10.1) mg/dl POC Ioniz Calcium Bryan 1.09 L (1.12-1.32) mmol/l Magnesium 2.1 (1.8-2.4) mg/dl Total Bilirubin (0.2-1) mg/dl AST (15-37) U/L ALT (12-78) U/L Alkaline Phosphatase (45-117) U/L Total Creatine Kinase (26-192) U/L CK-MB (CK-2) (0.5-3.6) ng/ml CK/CKMB % Calc (0-3.0) Troponin I 0.043 (0-0.045) ng/ml Total Protein (6.4-8.2) gm/dl Albumin (3.4-5.0) gm/dl Globulin (2.5-4.0) gm/dl Albumin/Globulin Ratio (0.9-2) TSH (0.300-4.500) uIu/ml Urine Color Urine Appearance (Clear) Urine pH (4.5-7.5) Ur Specific [place] (1.000-1.030) Urine Protein (Negative) Urine Glucose (UA) (Negative) Urine Ketones (Negative) Urine Blood (Negative) Urine Nitrite (Negative) Urine Bilirubin (Negative) Urine Urobilinogen (Negative) Ur Leukocyte Esterase (Negative) Urine WBC (Auto) (0-5) /hpf Urine RBC (Auto) (0-4) /hpf U Hyaline Cast (Auto) (0-5) /lpf U Epithel Cells (Auto) (0-5) /lpf Urine Bacteria (Auto) (Negative) 04/10/18 Range/Units 11:02 WBC (4.8-10.8) K/uL RBC (4.2-5.4) M/uL Hgb (12.0-16.0) g/dL POC Hgb (12.0-16.0) g/dl Hct (37-47) % POC Hct (37-47) % MCV (80-100) fL MCH (25-34) pg MCHC (32-36) g/dL RDW Std Deviation (36.4-46.3) fL RDW Coeff of Myra (11.5-14.5) % Plt Count (130-400) K/uL MPV (7.4-10.4) fL Immature Gran % (Auto) % Neut % (Auto) % Lymph % (Auto) % Taylor % (Auto) % Eos % (Auto) % Baso % (Auto) % Immature Gran # (Auto) (0.00-0.02) K/uL Neut # (Auto) (1.4-6.5) K/uL Lymph # (Auto) (1.2-3.4) K/uL Taylor # (Auto) (0.11-0.59) K/uL Eos # (Auto) (0-0.5) K/uL Baso # (Auto) (0-0.2) K/uL POC Sodium (135-144) mEq/L Sodium (136-145) mmol/L POC Potassium (3.3-5.0) mEq/L Potassium (3.5-5.1) mmol/L POC Chloride (101-112) mEq/L Chloride (98-107) mmol/L Carbon Dioxide (21-32) mmol/L POC Total CO2 (24-31) mEq/l Anion Gap (3-11) POC Anion Gap (16-25) mmol/L POC BUN (7-18) mg/dl BUN (7-18) mg/dl Creatinine (0.6-1.2) mg/dl POC Creatinine (0.6-1.3) mg/dl Est Cr Clr Drug Dosing ml/min Est GFR ( Amer) Est GFR (Non-Af Amer) BUN/Creatinine Ratio (10-20) Glucose (70-99) mg/dl POC Glucose (other) (70-99) mg/dl Calcium (8.5-10.1) mg/dl POC Ioniz Calcium Bryan (1.12-1.32) mmol/l Magnesium (1.8-2.4) mg/dl Total Bilirubin (0.2-1) mg/dl AST (15-37) U/L ALT (12-78) U/L Alkaline Phosphatase (45-117) U/L Total Creatine Kinase (26-192) U/L CK-MB (CK-2) (0.5-3.6) ng/ml CK/CKMB % Calc (0-3.0) Troponin I 0.028 (0-0.045) ng/ml Total Protein (6.4-8.2) gm/dl Albumin (3.4-5.0) gm/dl Globulin (2.5-4.0) gm/dl Albumin/Globulin Ratio (0.9-2) TSH (0.300-4.500) uIu/ml Urine Color Urine Appearance (Clear) Urine pH (4.5-7.5) Ur Specific [place] (1.000-1.030) Urine Protein (Negative) Urine Glucose (UA) (Negative) Urine Ketones (Negative) Urine Blood (Negative) Urine Nitrite (Negative) Urine Bilirubin (Negative) Urine Urobilinogen (Negative) Ur Leukocyte Esterase (Negative) Urine WBC (Auto) (0-5) /hpf Urine RBC (Auto) (0-4) /hpf U Hyaline Cast (Auto) (0-5) /lpf U Epithel Cells (Auto) (0-5) /lpf Urine Bacteria (Auto) (Negative) Imaging Data Radiologist's Impression: Radiology results as stated below per my review and the radiologist's interpretation: XR chest 1V portable CLINICAL HISTORY: Syncope. COMPARISON STUDY: Chest radiograph June 14, 2017. FINDINGS: There is no pneumothorax or pleural effusion. Cardiomediastinal silhouette is stable. Linear left midlung opacity suggests atelectasis. The appearance of the chest is unchanged. IMPRESSION: No acute cardiopulmonary findings. Electronically signed by: Pierre El M.D. 04/09/2018 11:[address] OF THE ABDOMEN AND PELVIS WITH CONTRAST CLINICAL HISTORY: Diffuse abdominal pain. Metastatic carcinoid tumor. COMPARISON STUDY: CT of the pelvis September 23, 2017. CT of the abdomen and pelvis July 21, 2017. TECHNIQUE: Following IV administration of 93 mL of Optiray-320, axial images of the abdomen and pelvis were obtained from the lung bases to the proximal femurs. Images were reviewed in the axial, sagittal, and coronal planes. IV contrast was administered without complication. Automated exposure control was utilized for the study. A dose lowering technique was utilized adhering to the principles of ALARA. CT DOSE: 332.31 mGy.cm FINDINGS: A few nodules within the lower lungs are unchanged from earlier exams. These are benign given stability. Several hepatic metastases have significantly increased in size since prior contrast enhanced CT of June 09, 2017. Index right hepatic lobe lesion measures 8.8 x 6 cm. It previously measured 6.1 x 4.7 cm. Moderate biliary ductal dilatation status post cholecystectomy has mildly increased. There is no hydronephrosis. The spleen and adrenal glands are normal. There is no evidence for a bowel obstruction. No pneumatosis, free air or portal venous gas is present. The appendix is not well visualized. An ill-defined right lower quadrant mesenteric mass is similar to prior exams, measuring 2.9 x 2 cm. As before, this is adjacent to a small bowel loop. This suggests a [place] metastasis. The primary lesion may be within the adjacent small bowel loop. There is no ascites. There are no suspicious osseous lesions. Severe arthritis of both hips is noted. IMPRESSION: 1. Moderate increase in size of multiple hepatic metastases from prior contrast enhanced CT of June 09, 2017. 2. Moderate biliary ductal dilatation, slightly increased since prior exam. This may be related to previous cholecystectomy however could be correlated with obstructive liver function tests. 3. No bowel obstruction. 4. No significant change in the right lower quadrant mesenteric mass which suggests a [place] metastasis given the history of carcinoid tumor. Electronically signed by: Pierre El M.D. 04/09/2018 10:57 PM ECG Data Attestation: I personally reviewed and interpreted this ECG as follows: Indication: syncope Rate (beats per minute): 96 Rhythm: normal sinus Findings: + other (septal infarct in inferior and anterior leads) and + prolonged QT; no ST depression and no ST elevation Comparison ECG Date: from (07/21/17) Change: the following changes noted (septal infarct in anterior and lateral leads are new) Blood Pressure Blood Pressure Findings: Elevated blood pressure Blood Pressure Disposition: further management by hospitalist MDM Narrative This is a 73-year-old female who presents emergency department complaining of multiple flushing episodes as well as nausea. Patient has known carcinoid tumor however has not been dealing well with it. She was given a normal saline bolus here in the emergency department. Due to the patient's multiple comorbidities I did discuss the case with the hospitalist service who agreed to admit the patient. Patient was in agreement with the treatment plan. Impression & Plan UTI (urinary tract infection) Discharge Plan Visit Data *Final* Discharge Date/Time: 04/10/18 00:41 Chief Complaint: Syncope Stated Complaint: SYNCOPE X 3 ED Provider: Deny Thayer Discharge Problem: UTI (urinary tract infection) Patient Disposition: Admitted As Inpatient Condition: Good Discharge Instructions Interventions: ED Discharge Assessment Last Done: 04/10/18 00:41 The scribe's documentation has been prepared under my direction and personally reviewed by me in its entirety. I confirm that the note above accurately reflects all work, treatment, procedures, and medical decision making performed by me.
--- NOTE | 2018-04-10 01:16 | History and Physical Report ---
DATE OF ADMISSION: 04/10/2018 CHIEF COMPLAINT: Syncope. HISTORY OF PRESENT ILLNESS: This is a 73-year-old female with past medical history significant for carcinoid tumor of the abdomen, history of coronary spasm, history of syncope, hypertension, allergic rhinitis. For carcinoid tumor, used to be a octreotide shots, currently on different shots monthly and she has an appointment in [place] coming Tuesday for biopsy of liver mass and also starting on a new medication. Was brought in because of syncope. The patient lives with her , daughter, and grandkids. She generally has carcinoid symptoms, but today the symptoms are worse. She was having blurred visions, flushing, abdominal discomfort, and dizziness and when she went to bathroom, she became unresponsive for about a minute like she was staring and was not responsive. After 1 minute, she came back to her usual self. She was not confused after that. She was a little shaky, but there was no bowel or bladder incontinence. Denies any fever or chills. No chest pain, no shortness of breath. Some nausea. She still has some abdominal discomfort but it is better now. No headache, no blurred visions now. No sore throat, no cough. Appetite is okay. She ambulates fine at home. Normal bowel and bladder movements. Currently, resting comfortably and hemodynamically stable. ALLERGIES: ASPIRIN, CAFFEINE, CELEBREX, CODEINE, LATEX, ALLERGIC TO CONTACT DERMATITIS, ATIVAN, MORPHINE, AND OPIATES. PAST MEDICAL HISTORY: As mentioned above. PAST SURGICAL HISTORY: Hysterectomy, tonsillectomy, adenoidectomy, appendectomy, and cholecystectomy. FAMILY HISTORY: Significant for cancer, heart disease, hypertension, diabetes. SOCIAL HISTORY: No smoking history, no alcohol use, no drug use. Lives with her and with family. REVIEW OF SYMPTOMS: As per HPI. Rest of review of symptoms negative. PHYSICAL EXAMINATION: GENERAL: The patient is of moderate build, currently not in acute distress. VITAL SIGNS: Temperature 37.3, pulse 78, respiratory rate 19, blood pressure 160/79, oxygen 96% on room air. HEENT: No pallor, no icterus. Pupils equal, round, and reactive to light. NECK: No JVD, no neck masses, no carotid bruits. CARDIOVASCULAR: S1, S2 heard, regular rate and rhythm, no murmur, no gallop. RESPIRATORY SYSTEM: Clear to auscultation bilaterally. No wheezing, no crackles. ABDOMEN: Soft, bowel sounds present, nontender. No distention. CENTRAL NERVOUS SYSTEM: Cranial nerves II-XII grossly intact, nonfocal. EXTREMITIES: No edema, no erythema. LABORATORY DATA: WBC 8.1, hemoglobin 13, hematocrit 40, platelets 340. Sodium 140, potassium 3.9, chloride 107, bicarbonate 25, BUN 16, creatinine 1, serum glucose 145, calcium 8.8, magnesium 2.2, total bilirubin 0.4, AST 74, ALT 51, alkaline phosphatase 277, total creatinine kinase 84. Troponin I 0.016. TSH 3.2. Urinalysis positive for leukocyte esterase. IMAGING DATA: Chest x-ray, no acute cardiopulmonary findings seen. CT of the abdomen and pelvis, moderate increase in size of multiple hepatic metastases from prior contrast-enhanced CT of May 2017. Moderate biliary ductal dilatation, slightly increased since prior exam, this may be related to previous cholecystectomy, however, could be correlated with liver function test. No bowel obstruction. No significant change in the right lower quadrant mesenteric mass. May suggest [place] metastases given history of carcinoid tumor. EKG: Normal sinus rhythm with rate of 96. Prolonged QT at 548. No ST-T wave abnormality seen. ASSESSMENT AND PLAN: This is a 73-year-old female who presents with syncopal episode. 1. Syncope, could be from the urinary tract infection, could be from her carcinoid symptoms. She has history of cardiac cath a couple of years ago, which was clean, and she has history of diagnosis of coronary vasospasm at that time. We will monitor on the tele floor. Gentle fluids. Follow serial cardiac enzymes, repeat EKG, and repeat echocardiogram. 2. Urinary tract infection, possibly causing the above symptoms. We will follow the urine cultures. Continue Rocephin. 3. Metastatic carcinoid tumor. Follows with oncology. Supposed to get liver biopsy this Tuesday and start a new medication at [facility]. Will consult hematology/oncology for further recommendations. 4. Questionable paroxysmal atrial fibrillation. The patient says when she was at [facility], she was taken to the ICU and it was difficult to control the heart rate and she was placed on Xarelto . Xarelto is held since last few days for biopsy for next Tuesday. Continue Toprol and will monitor the heart rates. 5. Biliary ductal dilatation in the CAT scan. We will follow the repeat LFTs. The current LFT seems to be at baseline. 6. Prolonged Qt . Magnesium and potassium levels ok. Follow repeat ekg. 7. Dvt Px scds. Disposition. Monitor in tele Level 1 full code. Dictation Ends Here MTDD
[2018-04-10] MEDS ORDERED: SODIUM CHLORIDE 0.9% 1000ML 1,000 ML IV SCH (01:17)
[2018-04-10] MEDS ORDERED: ACETAMINOPHEN 500 MG TAB PO PRN (01:17)
[2018-04-10] MEDS ORDERED: NITROGLYCERIN SL 0.4 MG/TAB TAB SL PRN (01:17)
[2018-04-10] MEDS ORDERED: ONDANSETRON INJ 2 MG/ML 2 ML VIAL IV PRN (01:17)
[2018-04-10] MEDS ORDERED: ACETAMINOPHEN 325 MG TAB PO PRN (01:17)
[2018-04-10 05:32] LABS: Basophils # (auto) 0.06 K/uL (0-0.2); Basophils % (auto) 0.8 %; Eosinophils # (auto) 0.15 K/uL (0-0.5); Hemoglobin 10.7 g/dL (12.0-16.0); Immature Granulocytes # (auto) 0.01 K/uL (0.00-0.02); Immature Granulocytes % (auto) 0.1 %; Lymphocytes # (auto) 2.15 K/uL (1.2-3.4); Lymphocytes % (auto) 28.2 %; Mean Corpuscular Hgb Conc 32.4 g/dL (32-36); Mean Corpuscular Volume 89.7 fL (80-100); Mean Platelet Volume 11.1 fL (7.4-10.4); Monocytes # (auto) 0.48 K/uL (0.11-0.59); Monocytes % (auto) 6.3 %; Neutrophils # (auto) 4.78 K/uL (1.4-6.5); Neutrophils % (auto) 62.6 %; Platelet Count 279 K/uL (130-400); RDW Coefficient of Variation 16.1 % (11.5-14.5); RDW Standard Deviation 52.8 fL (36.4-46.3); Red Blood Count 3.68 M/uL (4.2-5.4); White Blood Count 7.63 K/uL (4.8-10.8)
[2018-04-10 06:02] LABS: Calcium 8.2 mg/dl (8.5-10.1); Creatinine Clr Calc Pharmacy 55.9 ml/min; Est GFR (African American) 78.8; Magnesium 2.1 mg/dl (1.8-2.4); Potassium 3.6 mmol/L (3.5-5.1)
[2018-04-10 06:07] LABS: Troponin I 0.043 ng/ml (0-0.045)
[2018-04-10] MEDS ORDERED: INFLUENZA ADMINISTRATION CHARGE ONE (08:00)
[2018-04-10] MEDS ORDERED: INFLUENZA VACCINE HIGH DOSE 65+ 0.5 ML SYR IM ONE (08:00)
[2018-04-10] MEDS ORDERED: CHOLECALCIFEROL 1,000 UNITS TAB PO SCH (09:00)
--- NOTE | 2018-04-10 11:12 | Consultation Report ---
DATE OF CONSULTATION: 04/10/2018 MEDICAL ONCOLOGY CONSULTATION REASON FOR CONSULTATION: A 73-year-old female patient with metastatic carcinoid syndrome, admitted to [facility] because of symptomatology. HISTORY OF PRESENT ILLNESS: Sofia is a pleasant 73-year-old female well known to [facility], currently under Dr. Darrick Escalera's care for metastatic carcinoid tumor. The patient was admitted through the Emergency Room yesterday afternoon because of syncope. The patient who lives with family members had complained of increasing flushing, abdominal discomfort, dizziness and blurred vision when she went to the bathroom. During that episode, became unresponsive for approximately 1 minute. After a period of time, she returned to her baseline. There was no confusion once she aroused. The patient denies any preceding fevers, chills or sweats. No chest pain or shortness of breath. She had complained of some mild abdominal discomfort on admission. This morning, she is feeling much better and the primary service is requesting assistance on her care. Sofia was diagnosed with metastatic carcinoid tumor back in late 2015 when she had presented with flushing, dizziness, diarrhea for several months leading up to diagnosis. The patient had a markedly elevated serotonin level of 1647 and urine 5-HIAA of 41.9. She was subsequently started on Sandostatin resulting in complete resolution of her symptoms. Her most recent radiographic study was done in August of 2017, which suggested she posses a small mesenteric mass measuring 2.4 which was unchanged; however, progressing hepatic metastasis as compared to scans from February of 2016. The patient was recently started on a new Sandostatin analog, lanreotide which she receives monthly every 28 days, a dose of 120 mg. Last dose was administered on April 03. PAST MEDICAL HISTORY: Again, significant for hypertension, coronary spasm, history of syncope and allergic rhinitis. PAST SURGICAL HISTORY: Includes hysterectomy, tonsillectomy, adenoidectomy, appendectomy and cholecystectomy. HOME MEDICATIONS: Include lanreotide 120 mg IM q. 28 days. She is also on lisinopril daily, vitamin D3 and Tylenol p.r.n. She is on 25 mg p.o. q.a.m. ALLERGIES: ASPIRIN, CELECOXIB, CODEINE, MORPHINE, LATEX, CAFFEINE, MIDAZOLAM, FENTANYL, LORAZEPAM, AND OPIOIDS IN GENERAL. SOCIAL HISTORY: The patient lives with her and family. Negative for cigarettes, alcohol or illicit drugs. FAMILY HISTORY: Significant for cancer, heart disease, hypertension, diabetes. REVIEW OF SYSTEMS: Most notably for generalized weakness, syncope. Occasional dizziness. No fevers, chills or sweats. She is not anorexic or losing weight. SKIN: No rashes or lesions. No history of dermatoses. HEENT: Negative for headaches, lightheadedness. Positive for occasional dizziness. No sinus symptoms, sore throat or dysphagia presently. LYMPH: No history of lymphoproliferative disease. CARDIAC: Positive for coronary artery strain. No current angina or palpitations. PULMONARY: Negative for COPD. No shortness of breath, dyspnea or orthopnea. No cough or hemoptysis. GASTROINTESTINAL: Positive for occasional diarrhea. Positive for nausea. No acute onset abdominal pain. No hematochezia, melena or racquel rectal bleeding. GENITOURINARY: No hematuria, dysuria, urinary incontinence. PSYCHIATRIC: Negative for anxiety, depression or psychoses. MUSCULOSKELETAL: Negative for arthralgias or myalgias. No history of rheumatologic disease. Again, she complains of generalized weakness. ENDOCRINE: Negative for diabetes or thyroid disease. NEUROLOGIC: Negative for seizure, stroke, or migraine headache. HEMATOLOGIC: Negative for anemia, thrombophilia or bleeding diathesis. PHYSICAL EXAMINATION: GENERAL: Very pleasant 73-year-old female in no acute distress. VITAL SIGNS: Temperature 37, pulse 53, respiratory rate 19, blood pressure 132/70. SKIN: Warm, dry, noncyanotic without petechiae, rash or ecchymosis. HEENT: Head is atraumatic, normocephalic. Eyes: PERRLA, EOMI. Sclerae nonicteric. No conjunctival injection. Nares patent without rhinorrhea or discharge. Throat clear. Tongue midline. Mucous membranes are moist. NECK: Supple. No JVD or thyromegaly. LYMPH: No cervical, supraclavicular, axillary or inguinal palpable nodes. HEART: Regular rate and rhythm. No clicks, rubs or murmurs. LUNGS: Clear to auscultation bilaterally. ABDOMEN: Soft, nontender, nondistended, without palpable hepatosplenomegaly. EXTREMITIES: No clubbing, cyanosis or edema. NEUROLOGICALLY: She is awake, alert and oriented x3. Cranial nerves are grossly intact. LABORATORY DATA: WBC count 7630, hemoglobin 10.7, platelet count 279,000. Sodium 142, potassium 3.6, chloride 109, carbon dioxide 27, creatinine 0.85, BUN 12, AST slightly elevated at 74, ALT 227. RADIOGRAPHIC DATA: CT scan of the abdomen and pelvis, moderate increase in size, multiple hepatic metastases as compared to CT from May of 2017. Chest x-ray, no acute cardiopulmonary findings. IMPRESSION: 1. Syncope. 2. Urinary tract infection. 3. Metastatic carcinoid tumor. 4. Questionable paroxysmal atrial fibrillation. 5. Biliary ductal dilatation seen on CAT scan. PLAN: In summary, Sofia is a very pleasant 73-year-old female well known to [facility], currently under Dr. Escalera's care. According to Dr. Escalera's most recent clinical notes, her Sandostatin analog was changed to lanreotide recently. Her last dose was administered on 03 of April. It would appear that she is having breakthrough symptoms consistent with carcinoid syndrome. Perhaps spot check serotonin and chromogranin A levels while in house. Additionally, 24-hour urine 5-HIAA would be helpful. I believe the plan moving forward, the patient is supposed to return to [facility] later on this week for formal biopsy of one of the liver lesions. I would do nothing other than controlling symptoms at this point and try to stabilize her medically to get her home, so she can proceed with this schedule appointment. She seems to be doing much better this morning and do not anticipate any further issues. Dr. Escalera has been advised of the patient's admission to hospital. If there are specific issues that arise, feel free to call, otherwise, probably will not follow her further during her stay. Thank you for allowing us to participate in her care.
--- NOTE | 2018-04-10 14:49 | Hospitalist Progress Note ---
Date of Service April 10, 2018 Assessment & Plan (1) Carcinoid tumor of abdomen: History of carcinoid syndrome with the liver metastases Has been getting treatment from [facility]-was on octreotide before and now has been on lanreotide since 03 April. Further management will be as per [facility] provided Will need to go to [facility] for liver biopsy on Tuesday She was admitted with an attack of flushing and dizziness with syncope Appreciate oncology input and recommendation Her symptoms resolved She had regular physical therapy Case discussed with the daughter and granddaughter in detail She will be discharged home this afternoon (2) Coronary vasospasm: She has history of coronary spasm No chest pain No new EKG changes Echo has been unremarkable (3) Hypertension: Blood pressure is maintained Reviewed hypotension likely secondary to vasodilation (4) UTI (urinary tract infection): Possible UTI Has been started on intravenous ceftriaxone Urine culture has not been back yet We will give Keflex for next 3 days (5) Syncope and collapse: Likely secondary to flushing and vasodilatation with history of carcinoid syndrome Remains hemodynamically stable without any postural hypotension Will discharge home this afternoon Subjective She is a 73-year-old female with significant past medical history of carcinoid tumor of the abdomen with hepatic metastasis was admitted with an attack of flushing and dizziness with hypotension. 04/10 The patient was seen and examined in telemetry She has been feeling a lot better She denies any symptoms of dizziness and/or palpitation, no shortness of breath , nausea and/or vomiting He has had physical therapy and was advised that she can go home Physical Exam 2 Vital Signs (Past 24 Hours): Last Vital Signs Temp 36.7 C 04/10/18 12:05 Pulse 69 04/10/18 12:05 Resp 18 04/10/18 12:05 BP 148/73 H 04/10/18 12:05 Pulse Ox 99 04/10/18 12:05 Physical Exam: No apparent distress at rest Constitutional: WD/WN, vitals as above Eyes: PERRL, conjunctivae normal, anicteric sclerae ENMT: external ear and nose normal, oropharynx normal Respiratory: normal respiratory effort, lungs clear to auscultation Cardiovascular: Rate/Rhythm: regular rate and regular rhythm Heart Sounds: normal S1 and normal S2 Gastrointestinal (Abdomen): Inspection/Auscultation: abdomen normal to inspection and normal bowel sounds Percussion/Palpation: abdomen soft; abdomen nontender Neurologic: PERRL, EOMI, accommodation nl, no face palsy, no dysarthria Results & Data Laboratory Results Short CBC 04/09/18 04/10/18 Range/Units 21:49 05:16 WBC 8.19 7.63 (4.8-10.8) K/uL Hgb 13.0 10.7 L (12.0-16.0) g/dL Hct 40.0 33.0 L (37-47) % Plt Count 340 279 (130-400) K/uL BMP 04/09/18 04/10/18 21:49 05:16 Sodium 140 142 Potassium 3.9 3.6 Chloride 107 109 H Carbon Dioxide 25 27 BUN 16 12 Creatinine 1.00 0.85 Glucose 145 H 113 H Calcium 8.8 8.2 L Cardiac Enzymes 04/09/18 04/10/18 04/10/18 Range/Units 21:49 05:16 11:02 Total Creatine Kinase 84 (26-192) U/L CK-MB (CK-2) 1.4 (0.5-3.6) ng/ml Troponin I 0.016 0.043 0.028 (0-0.045) ng/ml Liver Function 04/09/18 Range/Units 21:49 Total Bilirubin 0.4 (0.2-1) mg/dl AST 74 H (15-37) U/L ALT 51 (12-78) U/L Alkaline Phosphatase 227 H (45-117) U/L Albumin 3.3 L (3.4-5.0) gm/dl Urine 04/09/18 Range/Units 21:55 Urine Color Yellow Urine Appearance Clear (Clear) Urine pH 7.0 (4.5-7.5) Ur Specific [place] 1.010 (1.000-1.030) Urine Protein Negative (Negative) Urine Glucose (UA) Negative (Negative) Medications Administered Current Inpatient Medications Acetaminophen (Tylenol) 650 mg PO Q4H PRN PRN Reason: Pain or Fever Stop: 05/10/18 01:16 Diphenhydramine HCl (Benadryl Capsule) 25 mg PO Q6H PRN PRN Reason: Allergic Symptoms Stop: 05/10/18 01:16 Last Admin: 04/10/18 12:24 Dose: 25 mg Sodium Chloride (Nss 1000ml) 1,000 mls @ 75 mls/hr IV .[id number] [facility] Stop: 05/10/18 01:16 Last Admin: 04/10/18 01:55 Dose: 75 mls/hr Ceftriaxone Sodium 1,000 mg/ (Dextrose) 60 mls @ 100 mls/hr IV Q24H [facility] Stop: 04/18/18 22:35 Metoprolol Succinate (Toprol Xl) 25 mg PO QPM [facility] Stop: 05/10/18 20:59 Nitroglycerin (Nitrostat) 0.4 mg SL UD PRN PRN Reason: Chest Pain Stop: 05/10/18 01:16 Ondansetron HCl (Zofran) 4 mg IV Q6H PRN PRN Reason: Nausea Stop: 05/10/18 01:16 Vitamin D (Vitamin D3) 2,000 units PO DAILY [facility] Stop: 05/10/18 08:59 Last Admin: 04/10/18 08:14 Dose: 2,000 units _ (1) UTI (urinary tract infection) Encounter type: Hematuria presence: with hematuria Indwelling urinary catheter type: Urinary tract infection type: site unspecified Qualified Code( s): N39.0 - Urinary tract infection, site not specified; R31.9 - Hematuria, unspecified
[2018-04-10] MEDS ORDERED: METOPROLOL SUCC 25MG EXT REL TAB PO SCH (21:00)
[2018-04-10] MEDS ORDERED: cefTRIAXone SODIUM 1,000 MG in DEXTROSE 5% 50 ML IV SCH (22:00)
--- NOTE | 2018-04-11 08:34 | Discharge Summary ---
Date of Service April 11, 2018 Admission HPI Per Admitting Provider DICTATED BY: Yonatan Cagle MD DATE OF ADMISSION: 04/10/2018 CHIEF COMPLAINT: Syncope. HISTORY OF PRESENT ILLNESS: This is a 73-year-old female with past medical history significant for carcinoid tumor of the abdomen, history of coronary spasm, history of syncope, hypertension, allergic rhinitis. For carcinoid tumor, used to be a octreotide shots, currently on different shots monthly and she has an appointment in [place] coming Tuesday for biopsy of liver mass and also starting on a new medication. Was brought in because of syncope. The patient lives with her , daughter, and grandkids. She generally has carcinoid symptoms, but today the symptoms are worse. She was having blurred visions, flushing, abdominal discomfort, and dizziness and when she went to bathroom, she became unresponsive for about a minute like she was staring and was not responsive. After 1 minute, she came back to her usual self. She was not confused after that. She was a little shaky, but there was no bowel or bladder incontinence. Denies any fever or chills. No chest pain, no shortness of breath. Some nausea. She still has some abdominal discomfort but it is better now. No headache, no blurred visions now. No sore throat, no cough. Appetite is okay. She ambulates fine at home. Normal bowel and bladder movements. Currently, resting comfortably and hemodynamically stable. Admission Exam Per Admitting Provider GENERAL: The patient is of moderate build, currently not in acute distress. VITAL SIGNS: Temperature 37.3, pulse 78, respiratory rate 19, blood pressure 160/79, oxygen 96% on room air. HEENT: No pallor, no icterus. Pupils equal, round, and reactive to light. NECK: No JVD, no neck masses, no carotid bruits. CARDIOVASCULAR: S1, S2 heard, regular rate and rhythm, no murmur, no gallop. RESPIRATORY SYSTEM: Clear to auscultation bilaterally. No wheezing, no crackles. ABDOMEN: Soft, bowel sounds present, nontender. No distention. CENTRAL NERVOUS SYSTEM: Cranial nerves II-XII grossly intact, nonfocal. EXTREMITIES: No edema, no erythema. Principal Diagnosis Carcinoid syndrome, liver metastasis, syncope likely secondary to an attack of carcinoid symptomatology Discharge Exam Constitutional WD/WN, vitals as above Eyes PERRL, conjunctivae normal, anicteric sclerae ENMT external ear and nose normal, oropharynx normal Respiratory normal respiratory effort, lungs clear to auscultation Cardiovascular Rate/Rhythm: regular rate and regular rhythm Heart Sounds: normal S1 and normal S2 Gastrointestinal (Abdomen) Inspection/Auscultation: abdomen normal to inspection and normal bowel sounds Percussion/Palpation: abdomen soft; abdomen nontender Neurologic PERRL, EOMI, accommodation nl, no face palsy, no dysarthria Discharge Data Allergies Allergy/AdvReac Type Severity Reaction Status Date / Time aspirin Allergy Intermediate "ASTHMA" Verified 04/09/18 21:42 celecoxib Allergy Intermediate "ASTHMA Verified 04/09/18 21:42 ATTACK" codeine Allergy Intermediate "FACE Verified 04/09/18 21:42 PUFFS UP" morphine Allergy Intermediate "FACE Verified 04/09/18 21:42 PUFFS UP" latex Allergy Mild RASH Verified 04/09/18 21:42 caffeine AdvReac Intermediate HEADACHE Verified 04/09/18 21:42 midazolam AdvReac Intermediate extreme Verified 04/09/18 21:42 anxiety fentanyl AdvReac Mild DELIRIUM Verified 04/09/18 21:42 lorazepam AdvReac Mild ANXIOUS Verified 04/09/18 21:42 OPIOIDS AdvReac Intermediate HALLUCINATI Uncoded 04/09/18 21:42 ONS Consultations 04/09/18 23:16 ED Decision to Admit Stat 04/10/18 01:17 Consult Case Management - Discharge Planning Routine 04/10/18 08:00 Consult Oncology Routine Ordered Studies 04/09/18 21:37 CT abd pelvis IV con only Stat Hospital Course (1) Carcinoid tumor of abdomen: History of carcinoid syndrome with the liver metastases Has been getting treatment from [facility]-was on octreotide before and now has been on lanreotide since 03 April. Further management will be as per [facility] provided Will need to go to [facility] for liver biopsy on Tuesday She was admitted with an attack of flushing and dizziness with syncope Appreciate oncology input and recommendation Her symptoms resolved She had regular physical therapy Case discussed with the daughter and granddaughter in detail She will be discharged home this afternoon (2) Coronary vasospasm: She has history of coronary spasm No chest pain No new EKG changes Echo has been unremarkable (3) Hypertension: Blood pressure is maintained Reviewed hypotension likely secondary to vasodilation (4) UTI (urinary tract infection): Possible UTI Has been started on intravenous ceftriaxone Urine culture has not been back yet We will give Keflex for next 3 days (5) Syncope and collapse: Likely secondary to flushing and vasodilatation with history of carcinoid syndrome Remains hemodynamically stable without any postural hypotension Will discharge home this afternoon Total Time Total Time Spent Total Time Spent (In Minutes): 35 minutes Total Time Includes: Examination of the Patient, Discharge Planning and Medication Reconciliation Discharge Plan Discharge Items Patient Disposition: Home - Self-Care Reason For Visit: SYNCOPE Discharge Diagnosis: Carcinoid syndrome, liver metastasis, syncope likely secondary to an attack of carcinoid symptomatology Condition: Good Discharge Goals: Decrease discomfort and Improve disease control Activity: Resume your previous activity Non-emergency contact: Primary Care Provider Call non-emergency contact if: you have any medication questions and your symptoms worsen Follow-up/Referrals: Kerri Schulz PA-C [Primary Care Provider] - (Please make an appointment with your primary care doctor in about 7 days) Diet: Heart Healthy and Low Sodium (2gm) Addtl Provider Instructions: Please keep appointment with [facility] for proposed liver biopsy Prescriptions: New cephalexin [Keflex] 500 mg capsule 500 mg PO BID Qty: 6 RF: 0 Continue acetaminophen 500 mg Tablet 1,000 mg PO Q6H PRN (Reason: Fever Or Pain) RF: 0 diphenhydramine HCl [Benadryl Allergy] 25 mg Tablet 25 mg PO DIRECTED PRN (Reason: Allergic Symptoms) RF: 0 ibuprofen 200 mg Tablet 200 mg PO Q6H PRN (Reason: Fever Or Pain) RF: 0 metoprolol succinate 25 mg tablet extended release 24 hr 25 mg PO QPM RF: 0 cholecalciferol (vitamin D3) [Vitamin D3] 2,000 unit Capsule 2,000 units PO DAILY RF: 0 rivaroxaban 20 mg tablet 20 mg PO DIRECTED RF: 0 Stand-Alone Forms: [employer]Other Patient Handouts: Syncope Discharge Orders: Discharge Order (Routine); Ordered 04/10/18 Ordered By: Mira Solano Admission Data Admit Date/Time: 04/10/18 00:05 Attending Provider: Mira Solano Admit Provider: Yonatan Cagle Primary Care Provider: Kerri Schulz Other Providers: Yonatan Cagle ; Darrick Escalera Service: Telemetry Other Interventions: Discharge Summary Assessment (RN) Last Done: 04/10/18 15:21 DC Date/Time DO NOT enter until pt leaves facility: 04/10/18 15:37
== END 2018-04-10 15:37 | disposition home or self-care (01) | DRG 644 ==
LOC: ED 21:06 → 2S 04-10 00:05 → SUATTDRO 04-10 00:05 → 2S 04-10 00:41

== ENCOUNTER 2018-06-26 01:49 | Inpatient (IN) ==
[2018-06-26] MEDS ORDERED: ACETAMINOPHEN 1,000 MG/100 ML VIAL IV STA (03:13)
[2018-06-26] MEDS ORDERED: LIDOCAINE 4% CREAM 15 GM TUBE EXT STA (03:13)
[2018-06-26 04:00] LABS: Basophils # (auto) 0.03 K/uL (0-0.2); Basophils % (auto) 0.2 %; Eosinophils # (auto) 0.08 K/uL (0-0.5); Eosinophils % (auto) 0.6 %; Hematocrit (blood only) 36.9 % (37-47); Immature Granulocytes # (auto) 0.03 K/uL (0.00-0.02); Immature Granulocytes % (auto) 0.2 %; Lymphocytes # (auto) 0.85 K/uL (1.2-3.4); Lymphocytes % (auto) 6.8 %; Mean Corpuscular Hgb Conc 32.5 g/dL (32-36); Mean Corpuscular Volume 88.7 fL (80-100); Monocytes # (auto) 0.71 K/uL (0.11-0.59); Monocytes % (auto) 5.7 %; Neutrophils # (auto) 10.86 K/uL (1.4-6.5); Neutrophils % (auto) 86.5 %; Platelet Count 346 K/uL (130-400); RDW Coefficient of Variation 15.8 % (11.5-14.5); RDW Standard Deviation 51.2 fL (36.4-46.3); Red Blood Count 4.16 M/uL (4.2-5.4); White Blood Count 12.56 K/uL (4.8-10.8)
[2018-06-26] MEDS: SODIUM CHLORIDE 0.9% 500 ML IV SCH ×2 (04:00→08:38)
[2018-06-26 04:18] LABS: Albumin Level 3.3 gm/dl (3.4-5.0); BUN Creatinine Ratio 14.4 (10-20); Creatinine Clr Calc Pharmacy 49.2 ml/min; Est GFR (African American) 75.5; Est GFR (Non-African American) 65.2; Potassium 3.8 mmol/L (3.5-5.1)
[2018-06-26 04:20] LABS: Albumin Globulin Ratio 0.7 (0.9-2); Bilirubin,Total 0.3 mg/dl (0.2-1); Globulin 4.7 gm/dl (2.5-4.0)
[2018-06-26] MEDS ORDERED: IOVERSOL 100ml IV PRN (04:40)
[2018-06-26] MEDS ORDERED: PIPERACILL/TAZOBAC CONSULT ACTIVE PRN (05:42)
[2018-06-26] MEDS ORDERED: PIPERACILLIN/TAZOBACTAM 3.375 GM/115 ML BAG IV STA (05:42)
--- NOTE | 2018-06-26 05:47 | Emergency Department Note ---
ED Visit Note I saw this patient in conjunction with Hua Corey PA-C. I agree with his decision making and treatment plan. .
[2018-06-26] MEDS ORDERED: ONDANSETRON INJ 2 MG/ML 2 ML VIAL IV STA (05:57)
--- NOTE | 2018-06-26 06:35 | History & Physical Report ---
Date of Service June 26, 2018 Assessment & Plan (1) Perirectal cellulitis: (1) Perianal cellulitis: No sepsis for now A. 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glycemia, possible prediabetes hemoglobin A1c of 6.31 July 2017 GMF Clear liquids for now Zosyn Follow official CT pelvis results General Surgery consult RE perianal cellulitis Low-dose IV heparin in place of patient's Pradaxa for now for A. fib thromboembolic prophylaxis RE possible surgical intervention Update hemoglobin A1c DVT prophylaxis. Heparin Full code History of Present Illness Chief Complaint: Rectal pain Primary Care Provider: Kerri Schulz History obtained from patient, family, and records. Medical history significant for A. 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 Recent confinement every 2018 for syncope attributed to carcinoid syndrome attack. 1 week history of achy rectal pain, occasional loose nonbloody stools. No fever, no chills, no emesis. No previous episodes in the past. At the ER, patient received IV Zosyn for possible perirectal infection. 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 Allergies Allergy/AdvReac Type Severity Reaction Status Date / Time aspirin Allergy Intermediate "ASTHMA" Verified 06/26/18 02:24 celecoxib Allergy Intermediate "ASTHMA Verified 06/26/18 02:24 ATTACK" codeine Allergy Intermediate "FACE Verified 06/26/18 02:24 PUFFS UP" morphine Allergy Intermediate "FACE Verified 06/26/18 02:24 PUFFS UP" latex Allergy Mild RASH Verified 06/26/18 02:24 caffeine AdvReac Intermediate HEADACHE Verified 06/26/18 02:24 midazolam AdvReac Intermediate extreme Verified 06/26/18 02:24 anxiety fentanyl AdvReac Mild DELIRIUM Verified 06/26/18 02:24 lorazepam AdvReac Mild ANXIOUS Verified 06/26/18 02:24 OPIOIDS AdvReac Intermediate HALLUCINATI Uncoded 06/26/18 02:24 ONS Home Medications Home Medications Medication Instructions Recorded Confirmed Type acetaminophen 1,000 mg PO Q6H PRN 04/09/18 06/26/18 History cholecalciferol (vitamin D3) 2,000 units PO DAILY 04/09/18 06/26/18 History [Vitamin D3] diphenhydramine HCl [Benadryl 25 mg PO DIRECTED PRN 04/09/18 06/26/18 History Allergy] metoprolol succinate 25 mg PO QPM 04/09/18 06/26/18 History rivaroxaban 20 mg PO QPM 04/09/18 06/26/18 History ondansetron HCl 8 mg PO Q8 PRN 06/26/18 06/26/18 History Past Med/Surg History Medical History Carcinoid tumor of abdomen Hypertension Asthma (Acute) Atrial fibrillation (Acute) Cancer (Acute) liver Depression (Acute) History of hysterectomy (Acute) Hypertension (Acute) Nausea and vomiting after administration of anesthetic agent (Acute) On anticoagulant therapy (Acute) Osteoarthritis (Acute) bilateral hips and knees Syncope (Acute) Urinary tract infection (Acute) Social History Preferred Language: Syriac Communication Ability: Effective Ethologist Required: Yes Beliefs That Will Affect Care: None marital status: Current Living Situation: Spouse and Family Other Information That Helps Us Care for You: No Feels Safe at Home: Yes Smoking Status: Never smoker Hx Alcohol Use: No Hx Substance Use: No Review of Systems Review of Systems: As per HPI, all 10 systems reviewed, all other ROS negative Physical Exam Physical Exam: GENERAL: Slightly uncomfortable, mild hearing impairment, no respiratory distress SKIN: Normal color, warm HEENT: [place] palpebral conjunctivae, no ptosis, dry buccal mucosa NECK : Supple, no tenderness CHEST : CTA, no tenderness HEART : RRR, no obvious murmurs ABDOMEN: Some distention, nontender RECTAL : Tender perianal induration EXTREMITIES : No LE swelling/tenderness, no other conspicuous deformities noted NEUROLOGIC : Coherent, no facial asymmetry, no other gross focality except for mild hearing impairment Results & Data Vital Signs (Past 12 Hours) Vital Signs Temp Pulse Pulse Resp BP BP Pulse Ox 06/26/18 06:10 65 16 136/63 96 06/26/18 05:05 72 20 139/64 97 06/26/18 03:29 70 22 153/83 H 97 06/26/18 01:58 37.1 C 89 20 145/88 H 98 Laboratory Results Laboratory Results WBC 12.56 K/uL (4.8-10.8) H 06/26/18 03:45 RBC 4.16 M/uL (4.2-5.4) L 06/26/18 03:45 Hgb 12.0 g/dL (12.0-16.0) 06/26/18 03:45 Hct 36.9 % (37-47) L 06/26/18 03:45 MCV 88.7 fL (80-100) 06/26/18 03:45 MCH 28.8 pg (25-34) 06/26/18 03:45 MCHC 32.5 g/dL (32-36) 06/26/18 03:45 RDW Std Deviation 51.2 fL (36.4-46.3) H 06/26/18 03:45 RDW Coeff of Myra 15.8 % (11.5-14.5) H 06/26/18 03:45 Plt Count 346 K/uL (130-400) 06/26/18 03:45 MPV 11.0 fL (7.4-10.4) H 06/26/18 03:45 Immature Gran % (Auto) 0.2 % 06/26/18 03:45 Neut % (Auto) 86.5 % 06/26/18 03:45 Lymph % (Auto) 6.8 % 06/26/18 03:45 [place] % (Auto) 5.7 % 06/26/18 03:45 Eos % (Auto) 0.6 % 06/26/18 03:45 Baso % (Auto) 0.2 % 06/26/18 03:45 Immature Gran # (Auto) 0.03 K/uL (0.00-0.02) H 06/26/18 03:45 Neut # (Auto) 10.86 K/uL (1.4-6.5) H 06/26/18 03:45 Lymph # (Auto) 0.85 K/uL (1.2-3.4) L 06/26/18 03:45 [place] # (Auto) 0.71 K/uL (0.11-0.59) H 06/26/18 03:45 Eos # (Auto) 0.08 K/uL (0-0.5) 06/26/18 03:45 Baso # (Auto) 0.03 K/uL (0-0.2) 06/26/18 03:45 Sodium 141 mmol/L (136-145) 06/26/18 03:45 Potassium 3.8 mmol/L (3.5-5.1) 06/26/18 03:45 Chloride 108 mmol/L (98-107) H 06/26/18 03:45 Carbon Dioxide 26 mmol/L (21-32) 06/26/18 03:45 Anion Gap 7.0 (3-11) 06/26/18 03:45 BUN 13 mg/dl (7-18) 06/26/18 03:45 Creatinine 0.88 mg/dl (0.6-1.2) 06/26/18 03:45 Est Cr Clr Drug Dosing 49.2 ml/min 06/26/18 03:45 Est GFR ( Amer) 75.5 06/26/18 03:45 Est GFR (Non-Af Amer) 65.2 06/26/18 03:45 BUN/Creatinine Ratio 14.4 (10-20) 06/26/18 03:45 Glucose 128 mg/dl (70-99) H 06/26/18 03:45 Lactate 1.1 mmol/L (0.4-2.0) 06/26/18 03:45 Calcium 9.0 mg/dl (8.5-10.1) 06/26/18 03:45 Magnesium 2.5 mg/dl (1.8-2.4) H 06/26/18 03:45 Total Bilirubin 0.3 mg/dl (0.2-1) 06/26/18 03:45 AST 39 U/L (15-37) H 06/26/18 03:45 ALT 22 U/L (12-78) 06/26/18 03:45 Alkaline Phosphatase 187 U/L (45-117) H 06/26/18 03:45 Total Protein 8.0 gm/dl (6.4-8.2) 06/26/18 03:45 Albumin 3.3 gm/dl (3.4-5.0) L 06/26/18 03:45 Globulin 4.7 gm/dl (2.5-4.0) H 06/26/18 03:45 Albumin/Globulin Ratio 0.7 (0.9-2) L 06/26/18 03:[address] pelvis initial read: Perianal soft tissue enhancement and fat stranding compatible with infectious/inflammatory changes, but neoplasm not excluded. Hypoattenuation measuring 1.8 cm representing phlegmon versus early abscess but no definite drainable abscess. EKG as per my interpretation rate 55, sinus bradycardia, diffuse T wave flattening
[2018-06-26] MEDS ORDERED: TRAMADOL HCL 50 MG TABLET PO PRN (06:37)
[2018-06-26] MEDS ORDERED: LACTATED RINGER'S 1,000 ML IV ONE (06:37)
[2018-06-26] MEDS ORDERED: HYDROmorphone INJ 0.5 MG/0.5 ML SYR IV PRN (06:37)
[2018-06-26] MEDS ORDERED: PROMETHAZINE HCL 12.5 MG in SODIUM CHLORIDE 0.9% 50 ML IV PRN (06:37)
[2018-06-26 06:59] LABS: Partial Thromboplastin Ratio 1.3; Partial Thromboplastin Time 35.4 Seconds (21.0-31.0)
[2018-06-26 07:05] LABS: Estimated Average Glucose 143 mg/dl; Hemoglobin A1C 6.6 % (4.5-5.6)
--- NOTE | 2018-06-26 07:29 | CT Scan Report ---
CT OF THE PELVIS WITH CONTRAST CLINICAL HISTORY: Rectal pain. Evaluate for perirectal abscess. COMPARISON STUDY: CT of the abdomen and pelvis April 09, 2018. TECHNIQUE: Axial images of the pelvis were obtained following intravenous injection of 93 cc Optiray 320 IV. Study was performed utilizing automated exposure control for dose reduction and according to ALARA principles. FINDINGS: A mesenteric mass measures approximately 2.7 x 1.7 cm and is similar to CT of April 09, 2018. Note is made of subcutaneous infiltration within both medial buttocks. Note is made of associat ed soft tissue thickening with a 2 cm rim-enhancing posterior perirectal fluid collection which conta ins a locule of gas which suggests a small abscess. There is also ill-defined hypodensity within the medial bilateral buttocks which suggests phlegmon or an additional developing multiloculated abscess. There are no suspicious osseous lesions. Caliber of visualized small and large bowel are normal. Pro minent left pelvic sidewall and external iliac nodes may be reactive. IMPRESSION: 1. Moderate subcutaneous inflammation of the proximal bilateral medial buttocks consistent with cellu litis with 2 cm rim enhancing posterior perirectal fluid collection suggestive of an abscess. In bridget tion, ill-defined hypodensity more inferiorly which favors phlegmon or additional developing multiloc ulated abscess. A neoplastic process is considered much less likely however imaging follow up to ensu re resolution is recommended. 2. No change in the mesenteric mass since CT of April 09, 2018. 3. Prominent left pelvic sidewall and external iliac lymph nodes which may be reactive but can be ass essed on subsequent exams. Electronically signed by: Pierre El M.D. 06/26/2018 7:28 AM
[2018-06-26] MEDS ORDERED: Heparin IV Low Dose *NO* Bolus IV SCH (07:30)
--- NOTE | 2018-06-26 08:15 | Emergency Department Note ---
History of Present Illness General Chief complaint: Rectal Pain Stated complaint: HEMORRHOID Time Seen by Provider: 06/26/18 02:41 History of Present Illness Maximum Pain Intensity: 10 This is a 73-year-old female presenting to the emergency department for evaluation of rectal pain worsening over the past week. The patient does not report fever or chills. She believes that she has a hemorrhoid causing her pain. She does not report significant blood or bleeding with bowel movements, although it is painful. She does not report significant chest pain, shortness of breath, or abdominal pain. She does not report a history of inflammatory bowel disease. She rates her discomfort a /. Home Medications Home Medications Medication Instructions Recorded Confirmed Type acetaminophen 1,000 mg PO Q6H PRN 04/09/18 06/26/18 History cholecalciferol (vitamin D3) 2,000 units PO DAILY 04/09/18 06/26/18 History [Vitamin D3] diphenhydramine HCl [Benadryl 25 mg PO DIRECTED PRN 04/09/18 06/26/18 History Allergy] metoprolol succinate 25 mg PO QPM 04/09/18 06/26/18 History rivaroxaban 20 mg PO QPM 04/09/18 06/26/18 History ondansetron HCl 8 mg PO Q8 PRN 06/26/18 06/26/18 History Allergies Allergy/AdvReac Type Severity Reaction Status Date / Time aspirin Allergy Intermediate "ASTHMA" Verified 06/26/18 02:24 celecoxib Allergy Intermediate "ASTHMA Verified 06/26/18 02:24 ATTACK" codeine Allergy Intermediate "FACE Verified 06/26/18 02:24 PUFFS UP" morphine Allergy Intermediate "FACE Verified 06/26/18 02:24 PUFFS UP" latex Allergy Mild RASH Verified 06/26/18 02:24 caffeine AdvReac Intermediate HEADACHE Verified 06/26/18 02:24 midazolam AdvReac Intermediate extreme Verified 06/26/18 02:24 anxiety fentanyl AdvReac Mild DELIRIUM Verified 06/26/18 02:24 lorazepam AdvReac Mild ANXIOUS Verified 06/26/18 02:24 OPIOIDS AdvReac Intermediate HALLUCINATI Uncoded 06/26/18 02:24 ONS Past Med/Surg History Medical History Carcinoid tumor of abdomen Hypertension Asthma (Acute) Atrial fibrillation (Acute) Cancer (Acute) liver Depression (Acute) History of hysterectomy (Acute) Hypertension (Acute) Nausea and vomiting after administration of anesthetic agent (Acute) On anticoagulant therapy (Acute) Osteoarthritis (Acute) bilateral hips and knees Syncope (Acute) Urinary tract infection (Acute) Social History Preferred Language: Spanish Communication Ability: Effective Beliefs That Will Affect Care: None marital status: Current Living Situation: Spouse and Family Feels Safe at Home: Yes Smoking Status: Never smoker Hx Alcohol Use: No Hx Substance Use: No Review of Systems A total of 10 systems reviewed and were otherwise negative Physical Exam Vital Signs Vital Signs - 24 hr 06/26/18 01:58 06/26/18 03:29 06/26/18 05:05 Temperature 37.1 C Temperature Source Oral Sepsis Recent Fever Within 48 Hours No Sepsis Action Taken by Nursing No Action Required Pulse Rate 89 Pulse Rate [Right Finger] 70 72 Pulse Rhythm Regular Pulse Strength Normal Respiratory Rate 20 22 20 Respiratory Effort / Characteristics Non-Labored Respiratory Depth Normal Respiratory Pattern Blood Pressure 145/88 H Blood Pressure [Right Arm] 153/83 H 139/64 Blood Pressure Mean 107 Blood Pressure Mean [Right Arm] 106 89 Blood Pressure Position Sitting Blood Pressure Position [Right Arm] Pulse Oximetry 98 97 97 Oxygen Delivery Method Room Air Room Air Room Air 06/26/18 06:10 06/26/18 07:07 Temperature Temperature Source Sepsis Recent Fever Within 48 Hours Sepsis Action Taken by Nursing Pulse Rate 61 Pulse Rate [Right Finger] 65 Pulse Rhythm Pulse Strength Respiratory Rate 16 16 Respiratory Effort / Characteristics Non-Labored Spontaneous Respiratory Depth Normal Respiratory Pattern Regular Blood Pressure 124/74 Blood Pressure [Right Arm] 136/63 Blood Pressure Mean Blood Pressure Mean [Right Arm] 87 Blood Pressure Position Blood Pressure Position [Right Arm] Lying Pulse Oximetry 96 96 Oxygen Delivery Method Room Air Room Air VITALS: Vitals are noted on the nurse's note and reviewed by myself. Vital signs stable. GENERAL: Well-developed, well-nourished, white female who is in moderate discomfort secondary to her stated complaint. HEART: Regular rate and rhythm without murmurs gallops or rubs. LUNGS: Clear to auscultation bilaterally without wheezes, rales or rhonchi. No retractions or accessory muscle use. ABDOMEN: Positive normal bowel sounds x 4. Soft, nontender, without masses or organomegaly. No guarding or rebound tenderness. : Examination was performed in the presence of female compensation specialist. There is a large indurated and tender area to the superior left side of the perirectal space. This does measure approximately 5 x 3 cm in size, and is concerning for possible abscess versus cellulitis. No active drainage is noted. No fistula. No significant hemorrhoid is appreciated. MUSCULOSKELETAL: No muscle atrophy, erythema, or edema noted. Full range of motion in all extremities. NEURO: Patient was alert and oriented to person place and time. CN II through XII grossly intact. Course Administered Medications Discontinued Medications Acetaminophen (Ofirmev) 1,000 mg in 100 mls @ 400 mls/hr IV NOW STA Stop: 06/26/18 03:27 Last Infusion: 06/26/18 04:14 Dose: 0 mls/hr Documented by: [id number] Admin: 06/26/18 04:00 Dose: 400 mls/hr Documented by: [id number] Sodium Chloride (Nss) 500 mls @ 125 mls/hr IV .Q4H VIVEK Stop: 07/26/18 03:14 Last Admin: 06/26/18 04:00 Dose: 125 mls/hr Documented by: [id number] Piperacillin Sod/Tazobactam Sod (Zosyn) 3.375 gm in 115 mls @ 230 mls/hr IV NOW STA Stop: 06/26/18 06:11 Last Infusion: 06/26/18 06:46 Dose: 0 mls/hr Documented by: [id number] Admin: 06/26/18 06:08 Dose: 230 mls/hr Documented by: [id number] Ioversol (Optiray 320 100ml) 100 ml IV ONCE PRN PRN Reason: Interaction Checking Stop: 06/30/18 04:39 Last Admin: 06/26/18 04:40 Dose: 93 ml Documented by: [id number] Lidocaine (Anecream 4%) 1 appln EXT NOW STA Stop: 06/26/18 03:14 Last Admin: 06/26/18 03:30 Dose: 1 appln Documented by: [id number] Ondansetron HCl (Zofran) 4 mg IV NOW STA Stop: 06/26/18 05:58 Last Admin: 06/26/18 06:08 Dose: 4 mg Documented by: [id number] Medical Decision Making Differential Diagnosis Differential diagnosis includes: Etiologies such as cellulitis, abscess, osteomyelitis, MRSA infection, DVT, necrotizing fasciitis, dermatitis, drug eruption, as well as others were ent ertained Laboratory Data Result diagrams: 06/26/18 03:45 06/26/18 03:45 Lab Results 06/26/18 06/26/18 06/26/18 Range/Units 03:45 03:45 03:45 WBC 12.56 H (4.8-10.8) K/uL RBC 4.16 L (4.2-5.4) M/uL Hgb 12.0 (12.0-16.0) g/dL Hct 36.9 L (37-47) % MCV 88.7 (80-100) fL MCH 28.8 (25-34) pg MCHC 32.5 (32-36) g/dL RDW Std Deviation 51.2 H (36.4-46.3) fL RDW Coeff of Myra 15.8 H (11.5-14.5) % Plt Count 346 (130-400) K/uL MPV 11.0 H (7.4-10.4) fL Immature Gran % (Auto) 0.2 % Neut % (Auto) 86.5 % Lymph % (Auto) 6.8 % Dare % (Auto) 5.7 % Eos % (Auto) 0.6 % Baso % (Auto) 0.2 % Immature Gran # (Auto) 0.03 H (0.00-0.02) K/uL Neut # (Auto) 10.86 H (1.4-6.5) K/uL Lymph # (Auto) 0.85 L (1.2-3.4) K/uL Dare # (Auto) 0.71 H (0.11-0.59) K/uL Eos # (Auto) 0.08 (0-0.5) K/uL Baso # (Auto) 0.03 (0-0.2) K/uL APTT (21.0-31.0) Seconds PTT Ratio Sodium 141 (136-145) mmol/L Potassium 3.8 (3.5-5.1) mmol/L Chloride 108 H (98-107) mmol/L Carbon Dioxide 26 (21-32) mmol/L Anion Gap 7.0 (3-11) BUN 13 (7-18) mg/dl Creatinine 0.88 (0.6-1.2) mg/dl Est Cr Clr Drug Dosing 49.2 ml/min Est GFR ( Amer) 75.5 Est GFR (Non-Af Amer) 65.2 BUN/Creatinine Ratio 14.4 (10-20) Glucose 128 H (70-99) mg/dl Estimat Average Glucose mg/dl Hemoglobin A1c (4.5-5.6) % Lactate 1.1 (0.4-2.0) mmol/L Calcium 9.0 (8.5-10.1) mg/dl Magnesium (1.8-2.4) mg/dl Total Bilirubin 0.3 (0.2-1) mg/dl AST 39 H (15-37) U/L ALT 22 (12-78) U/L Alkaline Phosphatase 187 H (45-117) U/L Total Protein 8.0 (6.4-8.2) gm/dl Albumin 3.3 L (3.4-5.0) gm/dl Globulin 4.7 H (2.5-4.0) gm/dl Albumin/Globulin Ratio 0.7 L (0.9-2) 06/26/18 06/26/18 06/26/18 Range/Units 03:45 03:45 03:45 WBC (4.8-10.8) K/uL RBC (4.2-5.4) M/uL Hgb (12.0-16.0) g/dL Hct (37-47) % MCV (80-100) fL MCH (25-34) pg MCHC (32-36) g/dL RDW Std Deviation (36.4-46.3) fL RDW Coeff of Myra (11.5-14.5) % Plt Count (130-400) K/uL MPV (7.4-10.4) fL Immature Gran % (Auto) % Neut % (Auto) % Lymph % (Auto) % [place] % (Auto) % Eos % (Auto) % Baso % (Auto) % Immature Gran # (Auto) (0.00-0.02) K/uL Neut # (Auto) (1.4-6.5) K/uL Lymph # (Auto) (1.2-3.4) K/uL Dare # (Auto) (0.11-0.59) K/uL Eos # (Auto) (0-0.5) K/uL Baso # (Auto) (0-0.2) K/uL APTT 35.4 H (21.0-31.0) Seconds PTT Ratio 1.3 Sodium (136-145) mmol/L Potassium (3.5-5.1) mmol/L Chloride (98-107) mmol/L Carbon Dioxide (21-32) mmol/L Anion Gap (3-11) BUN (7-18) mg/dl Creatinine (0.6-1.2) mg/dl Est Cr Clr Drug Dosing ml/min Est GFR ( Amer) Est GFR (Non-Af Amer) BUN/Creatinine Ratio (10-20) Glucose (70-99) mg/dl Estimat Average Glucose 143 mg/dl Hemoglobin A1c 6.6 H (4.5-5.6) % Lactate (0.4-2.0) mmol/L Calcium (8.5-10.1) mg/dl Magnesium 2.5 H (1.8-2.4) mg/dl Total Bilirubin (0.2-1) mg/dl AST (15-37) U/L ALT (12-78) U/L Alkaline Phosphatase (45-117) U/L Total Protein (6.4-8.2) gm/dl Albumin (3.4-5.0) gm/dl Globulin (2.5-4.0) gm/dl Albumin/Globulin Ratio (0.9-2) Imaging Data Radiologist's Impression: CT OF THE PELVIS WITH CONTRAST CLINICAL HISTORY: Rectal pain. Evaluate for perirectal abscess. COMPARISON STUDY: CT of the abdomen and pelvis April 09, 2018. TECHNIQUE: Axial images of the pelvis were obtained following intravenous injection of 93 cc Optiray 320 IV. Study was performed utilizing automated exposure control for dose reduction and according to ALARA principles. FINDINGS: A mesenteric mass measures approximately 2.7 x 1.7 cm and is similar to CT of April 09, 2018. Note is made of subcutaneous infiltration within both medial buttocks. Note is made of associated soft tissue thickening with a 2 cm rim-enhancing posterior perirectal fluid collection which contains a locule of gas which suggests a small abscess. There is also ill-defined hypodensity within the medial bilateral buttocks which suggests phlegmon or an additional developing multiloculated abscess. There are no suspicious osseous lesions. Caliber of visualized small and large bowel are normal. Prominent left pelvic sidewall and external iliac nodes may be reactive. IMPRESSION: 1. Moderate subcutaneous inflammation of the proximal bilateral medial buttocks consistent with cellulitis with 2 cm rim enhancing posterior perirectal fluid collection suggestive of an abscess. In addition, ill-defined hypodensity more inferiorly which favors phlegmon or additional developing multiloculated abs cess. A neoplastic process is considered much less likely however imaging follow up to ensure resolution is recommended. 2. No change in the mesenteric mass since CT of April 09, 2018. 3. Prominent left pelvic sidewall and external iliac lymph nodes which may be reactive but can be assessed on subsequent exams. MDM Narrative Physical exam and history were performed. Nursing notes, EMR, and Medication List were personally reviewed. Patient appears to have perirectal pain bringing her to the emergency department. On examination she does have a distinct area concerning for perirectal abscess/cellulitis. The patient is allergic to most opioids. IV access was established and labs were obtained. She was given IV Tylenol as well as topical lidocaine for her symptoms. CT scan was performed to further evaluate her symptoms. The case was discussed with my attending physician, who also independently evaluated the patient. The patient's blood work is as above and was reviewed. She does have an elevated white blood cell count of 12.5. She does not have a significant anemia or gross electrolyte imbalance. Lactic is normal with blood cultures pending. CT scan was reviewed by myself and radiology, and the initial [facility] reading indicated a deana-anal cellulitis. Reread in the morning does suggest a more definitive perirectal abscess. After discussing the case with the pharmacy the patient was started on IV Zosyn for antibiotic coverage. The patient does not appear well for discharge home. The case was discussed with the on-call hospitalist, who agreed to evaluate the patient here in the department regarding her symptoms. She may need further antibiotics and surgical consultation. The patient was pleased with this plan. Please see the hospital dictation for further patient course, plan, and disposition. The chart was completed utilizing [employer] Voice Recognition Software. Grammatical errors, random word insertions, pronoun errors, and incomplete sentences are an occasional consequence of this system due to software limitations, ambient noise, and hardware issues. Any formal questions or concerns about the content, text, or information contained within the body of this dictation should be directly addressed to the provider for clarification. . Impression & Plan Perianal cellulitis Discharge Plan Visit Data *Final* Discharge Date/Time: 06/26/18 07:07 Chief Complaint: Rectal Pain Stated Complaint: HEMORRHOID ED Provider: [facility] ED Midlevel Provider: Hua Corey Discharge Problem: Perianal cellulitis Patient Disposition: Admitted As Inpatient Discharge Instructions Interventions: ED Discharge Assessment Last Done: 06/26/18 07:07
--- NOTE | 2018-06-26 08:22 | Surgery Consultation ---
Date of Consultation June 26, 2018 Assessment & Plan (1) Perirectal abscess: admitted with perirectal abscess on Xarelto- will need to stop favor I/D possibly tomorrow- hold Xarelto IV atbx should stabilize infection- will do better if abscess drained History of Present Illness Attending Physician: Mira Solano MD History of Present Illness admitted through ER with perirectal abscess and cellulitis for IV atbx and I/D. pt with h/o afib on Xarelto- ordered IV Heparin Allergies Allergy/AdvReac Type Severity Reaction Status Date / Time aspirin Allergy Intermediate "ASTHMA" Verified 06/26/18 02:24 celecoxib Allergy Intermediate "ASTHMA Verified 06/26/18 02:24 ATTACK" codeine Allergy Intermediate "FACE Verified 06/26/18 02:24 PUFFS UP" morphine Allergy Intermediate "FACE Verified 06/26/18 02:24 PUFFS UP" latex Allergy Mild RASH Verified 06/26/18 02:24 caffeine AdvReac Intermediate HEADACHE Verified 06/26/18 02:24 midazolam AdvReac Intermediate extreme Verified 06/26/18 02:24 anxiety fentanyl AdvReac Mild DELIRIUM Verified 06/26/18 02:24 lorazepam AdvReac Mild ANXIOUS Verified 06/26/18 02:24 OPIOIDS AdvReac Intermediate HALLUCINATI Uncoded 06/26/18 02:24 ONS Home Medications Home Medications Medication Instructions Recorded Confirmed Type acetaminophen 1,000 mg PO Q6H PRN 04/09/18 06/26/18 History cholecalciferol (vitamin D3) 2,000 units PO DAILY 04/09/18 06/26/18 History [Vitamin D3] diphenhydramine HCl [Benadryl 25 mg PO DIRECTED PRN 04/09/18 06/26/18 History Allergy] metoprolol succinate 25 mg PO QPM 04/09/18 06/26/18 History rivaroxaban 20 mg PO QPM 04/09/18 06/26/18 History ondansetron HCl 8 mg PO Q8 PRN 06/26/18 06/26/18 History Patient History Medical History Carcinoid tumor of abdomen Hypertension Asthma (Acute) Atrial fibrillation (Acute) Cancer (Acute) liver Depression (Acute) History of hysterectomy (Acute) Hypertension (Acute) Nausea and vomiting after administration of anesthetic agent (Acute) On anticoagulant therapy (Acute) Osteoarthritis (Acute) bilateral hips and knees Syncope (Acute) Urinary tract infection (Acute) Social History Preferred Language: Sami Communication Ability: Effective Beliefs That Will Affect Care: None marital status: Current Living Situation: Spouse and Family Feels Safe at Home: Yes Smoking Status: Never smoker Hx Alcohol Use: No Hx Substance Use: No Review of Systems Review of Systems: All systems reviewed & are unremarkable except as noted in HPI & below Physical Exam Constitutional: WD/WN, vitals as above Respiratory: normal respiratory effort, lungs clear to auscultation no respiratory distress Cardiovascular: Rate/Rhythm: + abnormal rate irregular rhythm Gastrointestinal (Abdomen): Percussion/Palpation: abdomen soft pt has posterior perianal induration and erythema- very tender no spreading cellulitis- localized Musculoskeletal: Head/Neck/Chest: normocephalic and neck supple Skin: no rashes, warm and dry Psychiatric: Orientation: alert Results & Data Vital Signs (Past 12 Hours) Vital Signs Temp Pulse Pulse Resp BP BP Pulse Ox 06/26/18 07:07 61 16 124/74 96 06/26/18 06:10 65 16 136/63 96 06/26/18 05:05 72 20 139/64 97 06/26/18 03:29 70 22 153/83 H 97 06/26/18 01:58 37.1 C 89 20 145/88 H 98
[2018-06-26 08:31] LABS: Basophils # (auto) 0.04 K/uL (0-0.2); Basophils % (auto) 0.3 %; Eosinophils # (auto) 0.03 K/uL (0-0.5); Eosinophils % (auto) 0.2 %; Hematocrit (blood only) 36.1 % (37-47); Immature Granulocytes # (auto) 0.06 K/uL (0.00-0.02); Immature Granulocytes % (auto) 0.4 %; Lymphocytes # (auto) 1.27 K/uL (1.2-3.4); Lymphocytes % (auto) 8.9 %; Mean Corpuscular Volume 88.3 fL (80-100); Mean Platelet Volume 10.9 fL (7.4-10.4); Monocytes # (auto) 0.91 K/uL (0.11-0.59); Monocytes % (auto) 6.4 %; Neutrophils # (auto) 12.01 K/uL (1.4-6.5); Neutrophils % (auto) 83.8 %; Platelet Count 334 K/uL (130-400); RDW Coefficient of Variation 15.9 % (11.5-14.5); RDW Standard Deviation 51.3 fL (36.4-46.3); Red Blood Count 4.09 M/uL (4.2-5.4); White Blood Count 14.32 K/uL (4.8-10.8)
[2018-06-26 08:38] LABS: Mean Corpuscular Hgb Conc 33.2 g/dL (32-36)
[2018-06-26 08:43] LABS: INR 1.1 (0.9-1.1); Partial Thromboplastin Ratio 1.1; Partial Thromboplastin Time 29.8 Seconds (21.0-31.0); Prothrombin Time 11.4 Seconds (9.0-12.0)
[2018-06-26] MEDS: Heparin Adult LOW DOSE Wt-Based Dextrose 5% 25,000 units/500 mL IV SCH (09:46)
[2018-06-26] MEDS: ACETAMINOPHEN 325 MG TAB PO PRN ×3 (09:56→19:16)
[2018-06-26] MEDS: PIPERACILLIN/TAZOBACTAM 3.375 GM in DEXTROSE 5% 100 ML IV SCH ×2 (12:59→19:33)
--- NOTE | 2018-06-26 14:06 | Anesthesiology Consultation ---
Date of Service June 26, 2018 Assessment & Plan (1) Encounter for pre-operative examination: Chart Review Chart Review: Acceptable Risk for Surgery and Patient NOT seen in Pre Admission Testing Consults Requested none History Surgery Operation Date: 06/27/18 08:20 Proposed Procedures p Drainage fo Perirectal Abscess - Lester Kaba MD, FACS Height/Weight Height: 1.63 m Weight: 65.6 kg Allergies Allergy/AdvReac Type Severity Reaction Status Date / Time aspirin Allergy Intermediate "ASTHMA" Verified 06/26/18 02:24 celecoxib Allergy Intermediate "ASTHMA Verified 06/26/18 02:24 ATTACK" codeine Allergy Intermediate "FACE Verified 06/26/18 02:24 PUFFS UP" morphine Allergy Intermediate "FACE Verified 06/26/18 02:24 PUFFS UP" latex Allergy Mild RASH Verified 06/26/18 02:24 caffeine AdvReac Intermediate HEADACHE Verified 06/26/18 02:24 midazolam AdvReac Intermediate extreme Verified 06/26/18 02:24 anxiety fentanyl AdvReac Mild DELIRIUM Verified 06/26/18 02:24 lorazepam AdvReac Mild ANXIOUS Verified 06/26/18 02:24 OPIOIDS AdvReac Intermediate HALLUCINATI Uncoded 06/26/18 02:24 ONS Medications Home Medications Medication Instructions Recorded Confirmed Last Taken acetaminophen 1,000 mg PO Q6H PRN 04/09/18 06/26/18 05/01/18 08:00 cholecalciferol (vitamin D3) 2,000 units PO DAILY 04/09/18 06/26/18 06/25/18 [Vitamin D3] diphenhydramine HCl [Benadryl 25 mg PO DIRECTED PRN 04/09/18 06/26/18 05/01/18 Allergy] metoprolol succinate 25 mg PO QPM 04/09/18 06/26/18 06/25/18 rivaroxaban 20 mg PO QPM 04/09/18 06/26/18 06/25/18 ondansetron HCl 8 mg PO Q8 PRN 06/26/18 06/26/18 Unknown Active Medications Generic Name Dose Route Start Last Admin Trade Name Freq PRN Reason Stop Dose Admin Acetaminophen 650 mg 06/26/18 06:37 06/26/18 14:08 Tylenol PO 07/26/18 06:36 650 mg Q4H PRN Administration pain/fever Lactated Ringer's 1,000 mls @ 80 mls/hr 06/26/18 06:37 06/26/18 08:15 Lr IV 06/26/18 19:06 80 mls/hr .[id number] ONE Administration Heparin Sodium/Dextrose 25,000 units in 500 mls @ 14 mls/hr 06/26/18 09:15 06/26/18 09:46 Heparin Sodium/Dextrose IV 07/26/18 09:14 700 units/hr .Q24H VIVEK 14 mls/hr Administration Protocol 700 UNITS/HR Piperacillin Sod/Tazobactam 115 mls @ 28.75 mls/hr 06/26/18 12:00 06/26/18 12:59 Sod 3.375 gm/ Dextrose IV 07/06/18 05:59 28.8 mls/hr Q8H VIVEK Administration Protocol Past Medical History Medical History Carcinoid tumor of abdomen Hypertension Asthma (Acute) Atrial fibrillation (Acute) Cancer (Acute) liver Depression (Acute) History of hysterectomy (Acute) Hypertension (Acute) Nausea and vomiting after administration of anesthetic agent (Acute) On anticoagulant therapy (Acute) Osteoarthritis (Acute) bilateral hips and knees Syncope (Acute) Urinary tract infection (Acute) Past Family History Family History Other Family history non-contributory Past Surgical History Surgical History History of adenoidectomy (Acute) History of appendectomy (Acute) History of cardiac cath (Acute) History of cholecystectomy (Acute) History of colonoscopy (Acute) History of tonsillectomy (Acute) History of PONV History of PONV Social History Smoking Status: Never smoker Hx Alcohol Use: No Hx Substance Use: No Physical Exam Vital Signs Last Vital Signs Temp 36.9 C 06/26/18 08:03 Pulse 66 06/26/18 08:03 Resp 18 06/26/18 08:03 BP 129/70 06/26/18 08:03 Pulse Ox 96 06/26/18 08:03 Testing Electrocardiogram Date: 06/26/18 Findings: + SB @ (59 bpm) Sinus bradycardia Nonspecific ST and T wave abnormality Abnormal ECG When compared with ECG of 01-MAY-2018 13:46, Aberrant conduction is no longer Present Nonspecific T wave abnormality, worse in Lateral leads Confirmed by Cristobal Ivey ([id number]) on 06/26/2018 12:27:40 PM Chest X-Ray Date: 04/09/18 Findings: + NAD Echocardiogram Date: 04/10/18 EF: 55-60% LV Function: normal RWMA: + none Other Findings: + diastolic dysfunction (gr I) Mild AV sclerosis without AV stenosis Laboratory Results 06/26/18 08:20 06/26/18 03:45 PT 11.4 Seconds (9.0-12.0) 06/26/18 08:20 INR 1.1 (0.9-1.1) 06/26/18 08:20 APTT 29.8 Seconds (21.0-31.0) 06/26/18 08:20 Hemoglobin A1c 6.6 % (4.5-5.6) H 06/26/18 03:45
[2018-06-26 16:14] LABS: Partial Thromboplastin Ratio 1.5
[2018-06-26 16:20] LABS: Partial Thromboplastin Time 40.4 Seconds (21.0-31.0)
[2018-06-26] MEDS ORDERED: HEPARIN IV BOLUS 4,000 UNITS in SYRINGE 0 ML IV ONE (16:45)
[2018-06-26] MEDS: METOPROLOL SUCC 25MG EXT REL TAB PO SCH (21:14)
--- OUTSIDE RECORDS SUMMARY | 2018-06-26 22:46 | External Medical Summary | Continuity of Care Document ---
:1945 Author Name Guille Altamirano, Provider Address Unavailable Unavailable , Care Team Providers Name Role Phone Sesar Altamirano, [email or web address] PCP, UNKNOWN Unavailable Unavailable Unavailable Unavailable Unavailable Problems External hemorrhoids (455.3) (K64.4) Allergies and Adverse Reactions Aspirin TABS (Allergy) Caffeine (Allergy) celecoxib (Allergy) Codeine Derivatives (Allergy) Latex Exam Gloves MISC (Allergy) LORazepam TABS (Allergy) midazolam (Allergy) Morphine Derivatives (Allergy) Medications Lisinopril 2.5 MG Oral Tablet Refills: 0 Octreotide Acetate SOLN; ONCE PER MONTH INJECTION Refills: 0 Tylenol CAPS Refills: 0 Procedures Procedures not documented Immunizations Immunizations not documented Plan of Treatment Planned Observations Planned Goals not documented Results No Known Results Results not documented Encounters Appointment; Risa Montalvo PA-C 02-Nov-2016 16:00 Encounter Diagnosis: Problem not documented
[2018-06-27 00:23] LABS: Partial Thromboplastin Ratio 2.7
[2018-06-27 00:34] LABS: Partial Thromboplastin Time 73.4 Seconds (21.0-31.0)
[2018-06-27] MEDS: PIPERACILLIN/TAZOBACTAM 3.375 GM in DEXTROSE 5% 100 ML IV SCH ×3 (03:36→20:38)
[2018-06-27 06:11] LABS: Basophils # (auto) 0.03 K/uL (0-0.2); Basophils % (auto) 0.4 %; Eosinophils # (auto) 0.16 K/uL (0-0.5); Eosinophils % (auto) 1.9 %; Hematocrit (blood only) 30.4 % (37-47); Immature Granulocytes # (auto) 0.03 K/uL (0.00-0.02); Immature Granulocytes % (auto) 0.4 %; Lymphocytes # (auto) 1.43 K/uL (1.2-3.4); Lymphocytes % (auto) 17.4 %; Mean Corpuscular Hgb Conc 32.9 g/dL (32-36); Mean Corpuscular Volume 88.4 fL (80-100); Mean Platelet Volume 10.7 fL (7.4-10.4); Monocytes # (auto) 0.52 K/uL (0.11-0.59); Monocytes % (auto) 6.3 %; Neutrophils # (auto) 6.07 K/uL (1.4-6.5); Neutrophils % (auto) 73.6 %; Platelet Count 273 K/uL (130-400); RDW Coefficient of Variation 16.1 % (11.5-14.5); RDW Standard Deviation 52.4 fL (36.4-46.3); Red Blood Count 3.44 M/uL (4.2-5.4); White Blood Count 8.24 K/uL (4.8-10.8)
[2018-06-27 06:35] LABS: Partial Thromboplastin Ratio 1.1
[2018-06-27 06:43] LABS: Calcium 8.4 mg/dl (8.5-10.1); Creatinine Clr Calc Pharmacy 48.6 ml/min; Est GFR (African American) 74.5; Est GFR (Non-African American) 64.3; Potassium 3.8 mmol/L (3.5-5.1)
--- NOTE | 2018-06-27 07:39 | History & Physical Bridge Note ---
Date of Service June 27, 2018 History & Physical Bridge Note I have examined the patient, reviewed the History & Physical and in the interval since the performance of the History & Physical I have noted the following changes of clinical significance: no changes noted
[2018-06-27] MEDS ORDERED: PROPOFOL IV EMULSION 10 MG/ML 20 ML VIAL IV ONE (07:54)
[2018-06-27] MEDS ORDERED: LIDOCAINE HCL 2% 2 ML VIAL/AMP(20MG/ML) INFIL ONE (07:54)
[2018-06-27] MEDS ORDERED: MIDAZOLAM HCL 1 MG/ML 2ML VIAL ONE (07:54)
[2018-06-27] MEDS ORDERED: fentaNYL citrate 100 MCG/2 ML VIAL ONE (07:54)
[2018-06-27] MEDS ORDERED: ACETAMINOPHEN 1000 MG/100 ML IV IV ONE (08:11)
[2018-06-27] MEDS ORDERED: BUPIVACAINE 0.5 % 5 MG/1 ML MPF 30ML VIAL ONE (08:33)
--- NOTE | 2018-06-27 08:47 | Operative Report ---
Post Operative Report Pre & Post Diagnosis Operation Date: 06/27/18 08:20 <No data on this case meets the specified criteria> perirectal abscess Procedure Operation Date: 06/27/18 08:20 <No data on this case meets the specified criteria> incision and drainage perirectal abscess Surgeon Lester Kaba MD, FACS [employer] nurses Estimated Blood Loss 5 Findings Consistent with Post-Op Diagnosis Specimens culture Description of Procedure see dictation I attest to the content of the Intraoperative Record and any orders documented therein. Any exceptions are noted below.
[2018-06-27] MEDS ORDERED: ONDANSETRON INJ 2 MG/ML 2 ML VIAL ONE (09:02)
[2018-06-27] MEDS ORDERED: HYDROmorphone INJ 1 MG/ML SYRINGE ONE (09:11)
[2018-06-27] MEDS ORDERED: HYDROmorphone INJ 1 MG/ML SYRINGE IV PRN (09:16)
--- NOTE | 2018-06-27 09:43 | Operative Report ---
DATE OF OPERATION: 06/27/2018 NAME OF OPERATION: Incision and drainage of perirectal abscess. PREOPERATIVE DIAGNOSIS: Perirectal abscess. POSTOPERATIVE DIAGNOSIS: Perirectal abscess. STAFF SURGEON: Lester Kaba MD ANESTHESIA: General. DESCRIPTION OF PROCEDURE: The patient was brought in the operating room and placed on the operating table in the supine position, then placed in lithotomy. Her perineum was prepped and draped in usual fashion. She did have a small site of drainage in the left posterior area of the abscess. This was anesthetized using 0.5% plain Marcaine and then opened using electrocautery and then cultured. There was relatively large cavity traversing posterior and anterior. It was drained, irrigated, then a Nu Gauze packing placed. Dressing applied. The site was cultured. The patient transferred to the recovery room in stable condition. I attest to the content of the Intraoperative Record and any orders documented therein. Any exception s are noted below.
--- NOTE | 2018-06-27 09:47 | Anesthesiology Progress Note ---
Date of Service June 27, 2018 Anesthesia Post Procedure Vital Signs Vital Signs: Temp Pulse Pulse Resp BP BP Pulse Ox 06/27/18 09:33 36.8 C 63 20 140/69 99 06/27/18 09:30 62 16 140/69 97 06/27/18 09:20 70 16 155/67 H 96 06/27/18 09:10 81 23 145/90 H 97 06/27/18 09:00 82 15 161/110 H 95 06/27/18 08:52 36.5 C 75 18 178/79 H 98 06/27/18 07:42 37.5 C 56 L 20 140/56 L 98 06/27/18 07:19 37.2 C 52 L 16 138/62 97 06/26/18 22:40 37.3 C 63 16 130/67 95 06/26/18 21:12 62 130/67 06/26/18 15:53 37.0 C 58 L 18 122/63 97 Pain Intensity Buttock: Pain Intensity: 3 Notes Mental Status: alert / awake / arousable Patient Amnestic to Procedure: Yes Nausea / Vomiting: adequately controlled Pain: adequately controlled Airway Patency, RR, SpO2: stable & adequate BP & HR: stable & adequate Hydration State: stable & adequate Anesthetic Complications: no major complications apparent
[2018-06-27] MEDS ORDERED: TRAMADOL HCL 50 MG TABLET PO PRN (10:08)
[2018-06-27] MEDS ORDERED: HYDROmorphone INJ 0.5 MG/0.5 ML SYR IV PRN (10:08)
[2018-06-27] MEDS: Heparin Adult LOW DOSE Wt-Based Dextrose 5% 25,000 units/500 mL IV SCH ×2 (11:14→21:11)
[2018-06-27] MEDS ORDERED: DiphenhydrAMINE HCL 50 MG/ML VIAL IV STA (11:19)
[2018-06-27] MEDS ORDERED: DiphenhydrAMINE HCL 50 MG/ML VIAL IV ONE (11:36)
[2018-06-27] MEDS ORDERED: Nursing to Pharmacy Communication ONE (12:05)
--- NOTE | 2018-06-27 14:59 | Hospitalist Progress Note ---
Date of Service June 27, 2018 Assessment & Plan (1) Perirectal cellulitis: Consistent with perirectal abscess Status post I and D Appreciate surgical input and recommendation Clinically better A. 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 Asymptomatic right now Hyperglycemia, possible prediabetes hemoglobin A1c of 6.31 July 2017 Repeat hemoglobin A1c 6.6 DVT prophylaxis. Heparin Full code Subjective 06/27 The patient was seen and examined medical floor She is a 73-year-old female with significant significant past medical history for A. 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 Recent confinement every 2018 for syncope attributed to carcinoid syndrome attack. Status post IND for perianal abscess Complains of some pain there but no other symptoms Review of Systems Review of Systems: All systems reviewed and are unremarkable except as noted below Gastrointestinal: Pain around perianal area Physical Exam Physical Exam: No apparent distress at rest Constitutional: + ill appearing, + thin and comfortable Eyes: PERRL, conjunctivae normal, anicteric sclerae ENMT: external ear and nose normal, oropharynx normal Neck: trachea midline, no thyromegaly Respiratory: normal respiratory effort Auscultation: + diminished lung sounds and + wheezes (Occasional wheezing) Cardiovascular: Rate/Rhythm: regular rate and regular rhythm Heart Sounds: normal S1 and normal S2 Gastrointestinal (Abdomen): Inspection/Auscultation: abdomen normal to inspection and normal bowel sounds Percussion/Palpation: abdomen soft; abdomen nontender Musculoskeletal: no cyanosis or clubbing, extremities motor strength 5/5 Results & Data Vital Signs (Past 12 Hours) Vital Signs Temp Pulse Resp BP BP Pulse Ox 06/27/18 13:19 36.6 C 57 L 16 150/69 H 93 06/27/18 12:00 61 16 153/75 H 94 06/27/18 11:20 36.7 C 48 L 16 131/76 98 06/27/18 10:33 36.9 C 57 L 16 169/88 H 99 06/27/18 09:40 36.8 C 52 L 16 141/65 H 97 06/27/18 09:33 36.8 C 63 20 140/69 99 06/27/18 09:30 62 16 140/69 97 06/27/18 09:20 70 16 155/67 H 96 06/27/18 09:10 81 23 145/90 H 97 06/27/18 09:00 82 15 161/110 H 95 06/27/18 08:52 36.5 C 75 18 178/79 H 98 06/27/18 07:42 37.5 C 56 L 20 140/56 L 98 06/27/18 07:19 37.2 C 52 L 16 138/62 97 Laboratory Results Short CBC 06/27/18 Range/Units 05:49 WBC 8.24 (4.8-10.8) K/uL Hgb 10.0 L (12.0-16.0) g/dL Hct 30.4 L (37-47) % Plt Count 273 (130-400) K/uL BMP 06/27/18 05:49 Sodium 144 Potassium 3.8 Chloride 111 H Carbon Dioxide 28 BUN 6 L D Creatinine 0.89 Glucose 114 H Calcium 8.4 L Medications Administered Current Inpatient Medications Acetaminophen (Tylenol) 650 mg PO Q4H PRN PRN Reason: pain/fever Stop: 07/26/18 06:36 Last Admin: 06/26/18 19:16 Dose: 650 mg Documented by: Hydromorphone HCl (Dilaudid) 0.5 mg IV Q3HWA PRN PRN Reason: Pain Stop: 07/11/18 10:07 Promethazine HCl 12.5 mg/ (Sodium Chloride) 50.5 mls @ 202 mls/hr IV Q6H PRN PRN Reason: Nausea And Vomiting Stop: 07/26/18 06:36 Last Infusion: 06/27/18 11:10 Dose: Infused Documented by: Piperacillin Sod/Tazobactam (Sod 3.375 gm/ Dextrose) 115 mls @ 28.75 mls/hr IV Q8H VIVEK; Protocol Stop: 07/06/18 05:59 Last Admin: 06/27/18 13:08 Dose: 28.8 mls/hr Documented by: Heparin Sodium/Dextrose (Heparin Sodium/Dextrose) 25,000 units in 500 mls @ 16 mls/hr IV .Q24H VIVEK; Protocol Stop: 07/27/18 20:59 Metoprolol Succinate (Toprol Xl) 25 mg PO QPM VIVEK Stop: 07/26/18 20:59 Last Admin: 06/26/18 21:14 Dose: 25 mg Documented by: Miscellaneous Information (Consult) 1 ea N/A UD PRN PRN Reason: Consult Stop: 07/26/18 05:41 Tramadol HCl (Ultram) 50 - 100 mg PO Q4H PRN PRN Reason: Pain Stop: 07/27/18 10:07
[2018-06-27] MEDS: ACETAMINOPHEN 325 MG TAB PO PRN ×2 (17:30→23:39)
[2018-06-27] MEDS: METOPROLOL SUCC 25MG EXT REL TAB PO SCH (20:46)
[2018-06-28] MEDS: PIPERACILLIN/TAZOBACTAM 3.375 GM in DEXTROSE 5% 100 ML IV SCH ×3 (04:47→21:07)
[2018-06-28 06:30] LABS: Hematocrit (blood only) 31.5 % (37-47); Mean Corpuscular Hgb Conc 31.7 g/dL (32-36); Mean Corpuscular Volume 88.7 fL (80-100); Mean Platelet Volume 10.7 fL (7.4-10.4); Platelet Count 278 K/uL (130-400); RDW Coefficient of Variation 16.1 % (11.5-14.5); RDW Standard Deviation 52.4 fL (36.4-46.3); Red Blood Count 3.55 M/uL (4.2-5.4); White Blood Count 6.58 K/uL (4.8-10.8)
[2018-06-28 07:16] LABS: Partial Thromboplastin Ratio 1.9
[2018-06-28 07:18] LABS: Partial Thromboplastin Time 51.7 Seconds (21.0-31.0)
--- NOTE | 2018-06-28 07:52 | Progress Note ---
Date of Service June 28, 2018 Assessment & Plan (1) Perirectal abscess: cont IV atbx- cult pending - will likely be switched to Augmentin- try to replace gauze w/n wound possible d/c tomorrow depending on progress Subjective looks like she feels better- still some pain expected Results & Data Vital Signs (Past 12 Hours) Vital Signs Temp Pulse Pulse Resp BP BP Pulse Ox 06/28/18 03:30 36.9 C 55 L 16 129/71 94 06/27/18 23:30 36.6 C 54 L 16 119/61 95 06/27/18 20:46 53 L 122/69
[2018-06-28] MEDS: Heparin Adult LOW DOSE Wt-Based Dextrose 5% 25,000 units/500 mL IV SCH (12:48)
--- NOTE | 2018-06-28 14:26 | Hospitalist Progress Note ---
Date of Service June 28, 2018 Assessment & Plan (1) Perirectal cellulitis: Consistent with perirectal abscess Status post I and D Appreciate surgical input and recommendation Clinically better and has been improving No abdominal distention and bowel A. 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 Asymptomatic right now Has been getting Benadryl as needed for itchiness Hyperglycemia, possible prediabetes hemoglobin A1c of 6.31 July 2017 Repeat hemoglobin A1c 6.6 DVT prophylaxis. Heparin Full code Subjective 06/27 The patient was seen and examined medical floor She is a 73-year-old female with significant significant past medical history for A. 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 Recent confinement every 2018 for syncope attributed to carcinoid syndrome attack. Status post IND for perianal abscess Complains of some pain there but no other symptoms 06/28 Patient has been examined in the medical floor Complaint history of some pain in the rectal area She moved her bowel Not yet ready to be discharged looks like she feels better- still some pain expected Review of Systems Review of Systems: On systems reviewed and unremarkable except as noted Below Constitutional: + problem reported (Itchiness with increasing shortness of breath) Gastrointestinal: + problem reported (Rectal pain) Physical Exam Physical Exam: No apparent distress at Constitutional: + ill appearing, + thin and comfortable Eyes: PERRL, conjunctivae normal, anicteric sclerae ENMT: external ear and nose normal, oropharynx normal Neck: trachea midline, no thyromegaly Respiratory: normal respiratory effort Auscultation: + diminished lung sounds and + wheezes (Occasional wheezing) Cardiovascular: Rate/Rhythm: regular rate and regular rhythm Heart Sounds: normal S1 and normal S2 Gastrointestinal (Abdomen): Inspection/Auscultation: abdomen normal to inspection and normal bowel sounds Percussion/Palpation: abdomen soft; abdomen nontender Musculoskeletal: no cyanosis or clubbing, extremities motor strength 5/5 Results & Data Vital Signs (Past 12 Hours) Vital Signs Temp Pulse Pulse Resp BP BP Pulse Ox 06/28/18 12:00 37.1 C 66 20 142/83 H 97 06/28/18 07:57 37.1 C 57 L 20 156/72 H 97 06/28/18 03:30 36.9 C 55 L 16 129/71 94 Laboratory Results Short CBC 06/28/18 Range/Units 06:15 WBC 6.58 (4.8-10.8) K/uL Hgb 10.0 L (12.0-16.0) g/dL Hct 31.5 L (37-47) % Plt Count 278 (130-400) K/uL Medications Administered Current Inpatient Medications Acetaminophen (Tylenol) 650 mg PO Q4H PRN PRN Reason: pain/fever Stop: 07/26/18 06:36 Last Admin: 06/27/18 23:39 Dose: 650 mg Documented by: Diphenhydramine HCl (Benadryl Capsule) 25 mg PO Q4H PRN PRN Reason: Asthma Stop: 07/28/18 08:59 Last Admin: 06/28/18 10:45 Dose: 25 mg Documented by: Hydromorphone HCl (Dilaudid) 0.5 mg IV Q3HWA PRN PRN Reason: Pain Stop: 07/11/18 10:07 Promethazine HCl 12.5 mg/ (Sodium Chloride) 50.5 mls @ 202 mls/hr IV Q6H PRN PRN Reason: Nausea And Vomiting Stop: 07/26/18 06:36 Last Infusion: 06/27/18 11:10 Dose: Infused Documented by: Piperacillin Sod/Tazobactam (Sod 3.375 gm/ Dextrose) 115 mls @ 28.75 mls/hr IV Q8H VIVEK; Protocol Stop: 07/06/18 05:59 Last Admin: 06/28/18 12:47 Dose: 28.8 mls/hr Documented by: Heparin Sodium/Dextrose (Heparin Sodium/Dextrose) 25,000 units in 500 mls @ 16 mls/hr IV .Q24H VIVEK; Protocol Stop: 07/27/18 20:59 Last Admin: 06/28/18 12:48 Dose: 800 units/hr, 16 mls/hr Documented by: Metoprolol Succinate (Toprol Xl) 25 mg PO QPM VIVEK Stop: 07/26/18 20:59 Last Admin: 06/27/18 20:46 Dose: Not Given Documented by: Miscellaneous Information (Consult) 1 ea N/A UD PRN PRN Reason: Consult Stop: 07/26/18 05:41 Tramadol HCl (Ultram) 50 - 100 mg PO Q4H PRN PRN Reason: Pain Stop: 07/27/18 10:07
[2018-06-28] MEDS: ACETAMINOPHEN 325 MG TAB PO PRN (15:24)
[2018-06-28] MEDS: METOPROLOL SUCC 25MG EXT REL TAB PO SCH (21:08)
[2018-06-29] MEDS: PIPERACILLIN/TAZOBACTAM 3.375 GM in DEXTROSE 5% 100 ML IV SCH (03:30)
[2018-06-29 08:03] LABS: Partial Thromboplastin Ratio 1.9
[2018-06-29 08:10] LABS: Partial Thromboplastin Time 50.6 Seconds (21.0-31.0)
[2018-06-29] MEDS ORDERED: CEFDINIR 300 MG CAP PO SCH (11:00)
--- NOTE | 2018-06-29 11:52 | Hospitalist Progress Note ---
Date of Service June 29, 2018 Assessment & Plan (1) Perirectal cellulitis: Consistent with perirectal abscess Status post I and D Appreciate surgical input and recommendation Clinically better and has been improving No abdominal distention and bowel Discussed with surgery and she can be discharged home this afternoon Will stop Zosyn and start with Cefdinir A. 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 Asymptomatic right now Has been getting Benadryl as needed for itchiness Hyperglycemia, possible prediabetes hemoglobin A1c of 6.31 July 2017 Repeat hemoglobin A1c 6.6 DVT prophylaxis. Heparin Full code Subjective 06/27 The patient was seen and examined medical floor She is a 73-year-old female with significant significant past medical history for A. 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 Recent confinement every 2018 for syncope attributed to carcinoid syndrome attack. Status post IND for perianal abscess Complains of some pain there but no other symptoms 06/28 Patient has been examined in the medical floor Complaint history of some pain in the rectal area She moved her bowel Not yet ready to be discharged 06/29 The patient was seen and examined the medical floor She has been complaining of pain in the rectum but has been improving Tolerating regular diet and ambulating well Discussed with surgery and she can be discharged home today looks like she feels better- still some pain expected Review of Systems Review of Systems: All systems reviewed and are unremarkable except as mentioned below Gastrointestinal: Decreasing rectal pain Physical Exam Physical Exam: No apparent distress at rest Constitutional: + ill appearing, + thin and comfortable Eyes: PERRL, conjunctivae normal, anicteric sclerae ENMT: external ear and nose normal, oropharynx normal Neck: trachea midline, no thyromegaly Respiratory: normal respiratory effort Auscultation: + diminished lung sounds and + wheezes (Occasional wheezing) Cardiovascular: Rate/Rhythm: regular rate and regular rhythm Heart Sounds: normal S1 and normal S2 Gastrointestinal (Abdomen): Inspection/Auscultation: abdomen normal to inspection and normal bowel sounds Percussion/Palpation: abdomen soft; abdomen nontender Musculoskeletal: no cyanosis or clubbing, extremities motor strength 5/5 Neurologic: PERRL, EOMI, accommodation nl, no face palsy, no dysarthria Lymphatic: no cervical or axillary lymphadenopathy Results & Data Vital Signs (Past 12 Hours) Vital Signs Temp Pulse Resp BP Pulse Ox 06/29/18 07:09 36.9 C 48 L 18 135/79 18 L
[2018-06-29] MEDS ORDERED: AMOXICILLIN/CLAVULANATE 875 MG TAB PO SCH (17:00)
--- NOTE | 2018-06-30 09:19 | Discharge Summary ---
Date of Service June 30, 2018 Admission HPI Per Admitting Provider History obtained from patient, family, and records. Medical history significant for A. 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 Recent confinement every 2018 for syncope attributed to carcinoid syndrome attack. 1 week history of achy rectal pain, occasional loose nonbloody stools. No fever, no chills, no emesis. No previous episodes in the past. At the ER, patient received IV Zosyn for possible perirectal infection. 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 Admission Exam Per Admitting Provider GENERAL: Slightly uncomfortable, mild hearing impairment, no respiratory distress SKIN: Normal color, warm HEENT: Burr palpebral conjunctivae, no ptosis, dry buccal mucosa NECK : Supple, no tenderness CHEST : CTA, no tenderness HEART : RRR, no obvious murmurs ABDOMEN: Some distention, nontender RECTAL : Tender perianal induration EXTREMITIES : No LE swelling/tenderness, no other conspicuous deformities noted NEUROLOGIC : Coherent, no facial asymmetry, no other gross focality except for mild hearing impairment Principal Diagnosis Perianal abscess status post I&D Discharge Exam Constitutional + ill appearing, + thin and comfortable Eyes PERRL, conjunctivae normal, anicteric sclerae ENMT external ear and nose normal, oropharynx normal Neck trachea midline, no thyromegaly Respiratory normal respiratory effort Auscultation: + diminished lung sounds and + wheezes (Occasional wheezing) Cardiovascular Rate/Rhythm: regular rate and regular rhythm Heart Sounds: normal S1 and normal S2 Gastrointestinal (Abdomen) Inspection/Auscultation: abdomen normal to inspection and normal bowel sounds Percussion/Palpation: abdomen soft; abdomen nontender Musculoskeletal no cyanosis or clubbing, extremities motor strength 5/5 Neurologic PERRL, EOMI, accommodation nl, no face palsy, no dysarthria Lymphatic no cervical or axillary lymphadenopathy Discharge Data Allergies Allergy/AdvReac Type Severity Reaction Status Date / Time aspirin Allergy Intermediate "ASTHMA" Verified 06/26/18 02:24 celecoxib Allergy Intermediate "ASTHMA Verified 06/26/18 02:24 ATTACK" codeine Allergy Intermediate "FACE Verified 06/26/18 02:24 PUFFS UP" morphine Allergy Intermediate "FACE Verified 06/26/18 02:24 PUFFS UP" latex Allergy Mild RASH Verified 06/26/18 02:24 caffeine AdvReac Intermediate HEADACHE Verified 06/26/18 02:24 midazolam AdvReac Intermediate extreme Verified 06/26/18 02:24 anxiety fentanyl AdvReac Mild DELIRIUM Verified 06/26/18 02:24 lorazepam AdvReac Mild ANXIOUS Verified 06/26/18 02:24 OPIOIDS AdvReac Intermediate HALLUCINATI Uncoded 06/26/18 02:24 ONS Consultations 06/26/18 05:57 ED Decision to Admit Stat 06/26/18 06:37 Consult General Surgery Routine Procedures Performed Operation Date: 06/27/18 08:20 Actual Procedures p Drainage of Perirectal Abscess - Lester Kaba MD, FACS Ordered Studies 06/26/18 03:13 CT pelvis w/IV con only Urgent Hospital Course (1) Perirectal cellulitis: Consistent with perirectal abscess Status post I and D Appreciate surgical input and recommendation Clinically better and has been improving No abdominal distention and bowel Discussed with surgery and she can be discharged home this afternoon Will stop Zosyn and start with Cefdinir A. fib on Pradaxa, NSR Pradaxa is on hold due to surgery Has been on heparin now We will start Pradaxa at discharge Hypertension, stable Carcinoid tumor of the abdomen with liver mets Patient being managed at [facility]. Asymptomatic right now Has been getting Benadryl as needed for itchiness Hyperglycemia, possible prediabetes hemoglobin A1c of 6.31 July 2017 Repeat hemoglobin A1c 6.6 DVT prophylaxis. Heparin Full code Total Time Total Time Spent Total Time Spent (In Minutes): 35 minutes Total Time Includes: Examination of the Patient, Discharge Planning, Medication Reconciliation and Communication With Other Providers Discharge Plan Discharge Items Patient Disposition: Home - Self-Care Reason For Visit: PERIANAL CELLULITIS Discharge Diagnosis: Perianal abscess status post I&D Condition: Fair Discharge Goals: Decrease discomfort, Improve disease control and Improve function Activity: Resume your previous activity Non-emergency contact: Primary Care Provider Call non-emergency contact if: you have any medication questions and your symptoms worsen Follow-up/Referrals: Lester Kaba MD, FACS [Physician] - (Please make an appointment with Dr. Kaba as advised You may soak in a warm bath and you may shower. Will have some drainage from site for about a week. You should wear a clean pad and change as needed. Follow up next week with Dr. Kaba. ) Kerri Schulz PA-C [Primary Care Provider] - (Please make an appointment with your primary care doctor 7 days.) Diet: Regular Addtl Provider Instructions: Please take precaution to avoid falls, wound care as advised by surgery Prescriptions: New cefdinir 300 mg Capsule 300 mg PO BID 5 Days Qty: 10 RF: 0 tramadol 50 mg Tablet 50 mg PO Q4H PRN (Reason: pain) 5 Days Qty: 20 RF: 0 Continued acetaminophen 500 mg Tablet 1,000 mg PO Q6H PRN (Reason: Fever Or Pain) RF: 0 diphenhydramine HCl [Benadryl Allergy] 25 mg Tablet 25 mg PO DIRECTED PRN (Reason: Allergic Symptoms) RF: 0 metoprolol succinate 25 mg tablet extended release 24 hr 25 mg PO QPM RF: 0 cholecalciferol (vitamin D3) [Vitamin D3] 2,000 unit Capsule 2,000 units PO DAILY RF: 0 rivaroxaban 20 mg tablet 20 mg PO QPM RF: 0 ondansetron HCl 8 mg tablet 8 mg PO Q8 PRN (Reason: Nausea) RF: 0 Stand-Alone Forms: [employer], [facility]/Other Patient Handouts: Diabetes Type 2 Coping, Diabetes Meal Planning, Diabetes Type 2 Discharge Orders: Discharge Order (Routine); Ordered 06/29/18 Ordered By: Mira Solano Admission Data Admit Date/Time: 06/26/18 06:37 Attending Provider: Mira Solano Admit Provider: Brayden Yepez Primary Care Provider: Kerri Schulz Other Providers: Brayden Yepez ; Hu King Service: Surgical Services Other Interventions: Discharge Summary Assessment (RN) Last Done: 06/29/18 13:10 DC Date/Time DO NOT enter until pt leaves facility: 06/29/18 14:35
== END 2018-06-29 14:35 | disposition home or self-care (01) | DRG 394 ==
LOC: ED 01:49 → 3N 06:37

== ENCOUNTER 2018-08-14 08:18 | Inpatient (IN) ==
--- NOTE | 2018-08-08 13:17 | Anesthesiology Consultation ---
Date of Service August 08, 2018 Assessment & Plan (1) Encounter for pre-operative examination: Case discussed with Dr. Burgos given abnormal EKG. As patient was asymptomatic at the time, has h/o normal cath in 2016 and normal echo 03/2018, OK to proceed without further cardiac workup. Chart Review Chart Review: Acceptable Risk for Surgery and Patient NOT seen in Pre Admission Testing History Surgery Operation Date: 08/14/18 08:25 Proposed Procedures p Anal Exam Under Anesthesia, Fistulotomy, Possible Hemorrhoidectomy - Lester Kaba MD, FACS Height/Weight Height: 5 ft 4 in Weight: 66.224 kg Allergies Allergy/AdvReac Type Severity Reaction Status Date / Time aspirin Allergy Intermediate "ASTHMA" Verified 08/03/18 14:15 celecoxib Allergy Intermediate "ASTHMA Verified 08/03/18 14:15 ATTACK" codeine Allergy Intermediate "FACE Verified 08/03/18 14:15 PUFFS UP" morphine Allergy Intermediate "FACE Verified 08/03/18 14:15 PUFFS UP" latex Allergy Mild RASH Verified 08/03/18 14:15 caffeine AdvReac Intermediate HEADACHE Verified 08/03/18 14:15 midazolam AdvReac Intermediate extreme Verified 08/03/18 14:15 anxiety fentanyl AdvReac Mild DELIRIUM Verified 08/03/18 14:15 lorazepam AdvReac Mild ANXIOUS Verified 08/03/18 14:15 OPIOIDS AdvReac Intermediate HALLUCINATI Uncoded 08/03/18 14:15 ONS Medications Home Medications Medication Instructions Recorded Confirmed Last Taken acetaminophen 1,000 mg PO Q6H PRN 04/09/18 08/03/18 07/09/18 14:00 cholecalciferol (vitamin D3) 2,000 units PO QAM 04/09/18 08/03/18 07/10/18 [Vitamin D3] diphenhydramine HCl [Benadryl 25 mg PO DIRECTED PRN 04/09/18 08/03/18 07/10/18 08:00 Allergy] 50mg metoprolol succinate 25 mg PO HS 04/09/18 08/03/18 07/09/18 rivaroxaban 20 mg PO HS 04/09/18 08/03/18 07/09/18 ondansetron HCl 8 mg PO Q8 PRN 06/26/18 08/03/18 Unknown ibuprofen 200 mg PO Q6H PRN 07/10/18 08/03/1819 16:00 400mg Past Medical History Medical History Carcinoid tumor of abdomen With mets. [facility], Dr. Escalera. Receiving Sandostatin injection monthly. Hypertension Asthma (Acute) NO INHALER Atrial fibrillation (Acute) On Xarelto On anticoagulant therapy (Acute) Osteoarthritis (Acute) Syncope (Acute) Seen in [facility] ED 03/2018 and admitted. Echo WNL. Ruled 2/2 vasodilation and flushing 2/2 carcinoid syndrome. Anal fistula Hyperlipidemia BORDERLINE Urinary retention FOLLOWS WITH UROLOGY IN [place] Past Family History Family History Sister Family history of diabetes mellitus Past Surgical History Surgical History History of adenoidectomy (Acute) History of appendectomy (Acute) History of cardiac cath (Acute) [facility] 2016; "Normal coronary arteries." History of cholecystectomy (Acute) History of colonoscopy (Acute) History of hysterectomy (Acute) History of tonsillectomy (Acute) Nausea and vomiting after administration of anesthetic agent (Acute) History of dilatation and curettage History of esophagogastroduodenoscopy (EGD) History of liver biopsy History of tooth extraction Status post incision and drainage deana-rectal abscess, 06/27/18 Social History Smoking Status: Never smoker Do You Dip or Chew Tobacco: No Hx Alcohol Use: No Hx Substance Use: No substance use type: does not use Testing Laboratory Results 07/25/18 WBC: 5.39 H/H: 11.4/35.9 PLATELETS: 342 SODIUM: 141 POTASSIUM: 3.5 CHLORIDE: 108 CO2: 28 BUN: 10 CREATININE: 0.92 GLUCOSE: 78 Electrocardiogram Date: 07/10/18 Findings: + NSR @ (78 with occasional PVCs) ST and TWA, consider lateral ischemia. Compared to EKG from 06/26/18, PVCs are now present. *Done in [facility] ED when patient presented with pre-syncope; per provider's notes patient did not have chest pain. Echo 03/2018 WNL. Chest X-Ray Date: 07/10/18 Findings: + NAD Echocardiogram Date: 04/10/18 EF: 55-60% Normal LV chamber size with mild concentric LVH. No segmental LV wall motion normalities are noted. Grade 1 diastolic dysfunction. Aortic valve sclerosis mild, without significant aortic valvular stenosis. Cardiac Catheterization Date: 12/05/15 Findings: + normal
[~2018-08-14 08:18] MED LIST changes: -ACET-1256 PO; -CHOL200027 PO; +LR 15ML/HR IV SCH; -OCTR50IN INJ; -RIVA1TAB4 PO; +cefOXitin 2,000 MG in DEXTROSE 5% 50 ML IV SCH
[2018-08-14] MEDS ORDERED: fentaNYL citrate 100 MCG/2 ML VIAL IV PRN (09:24)
[2018-08-14] MEDS ORDERED: ATROPINE SULFATE 0.1 MG/ML 10ML SYR IV PRN (09:24)
[2018-08-14] MEDS ORDERED: ONDANSETRON INJ 2 MG/ML 2 ML VIAL IV PRN ×2 (09:24→13:08)
[2018-08-14] MEDS ORDERED: ePHEDrine sulfate 50 MG/ML AMP IV PRN (09:24)
[2018-08-14] MEDS ORDERED: fentaNYL citrate 100 MCG/2 ML VIAL ONE (09:42)
[2018-08-14] MEDS ORDERED: BUPIVACAINE 0.5 % 5 MG/1 ML MPF 30ML VIAL ONE (09:45)
--- NOTE | 2018-08-14 09:45 | History & Physical Bridge Note ---
Date of Service August 14, 2018 History & Physical Bridge Note I have examined the patient, reviewed the History & Physical and in the interval since the performance of the History & Physical I have noted the following changes of clinical significance: no changes noted
[2018-08-14] MEDS ORDERED: METHYLENE BLUE 0.5% 10 ML VIAL ONE (09:46)
[2018-08-14] MEDS ORDERED: ACETAMINOPHEN 1000 MG/100 ML IV IV ONE (10:13)
[2018-08-14] MEDS ORDERED: ACETAMINOPHEN 1,000 MG/100 ML VIAL IV ONE (10:40)
--- NOTE | 2018-08-14 10:40 | Operative Report ---
Post Operative Report Pre & Post Diagnosis Operation Date: 08/14/18 10:00 Pre-Op Diagnosis: Anal Fistula Post-Op Diagnosis: Anal Fistula Procedure Operation Date: 08/14/18 10:00 Actual Procedures p Anal Exam Under Anesthesia, Fistulotomy(Not Applicable) - Lester Kaba MD, FACS seton placement, abscess drainage, culture Surgeon Lester Kaba MD, FACS [employer] Team Member nurses, resident Estimated Blood Loss 10 Findings Consistent with Post-Op Diagnosis Specimens culture Description of Procedure see dictation I attest to the content of the Intraoperative Record and any orders documented therein. Any exceptions are noted below.
[2018-08-14] MEDS ORDERED: LIDOCAINE HCL 2% 2 ML VIAL/AMP(20MG/ML) INFIL ONE (10:42)
[2018-08-14] MEDS ORDERED: ROCURONIUM BROMIDE 10 MG/ML 5 ML VIAL ONE (10:42)
[2018-08-14] MEDS ORDERED: ONDANSETRON INJ 2 MG/ML 2 ML VIAL ONE (10:42)
[2018-08-14] MEDS ORDERED: NEOSTIGMINE METHYLSULFATE 5 MG/5 ML SYR ONE (10:42)
[2018-08-14] MEDS ORDERED: GLYCOPYRROLATE 0.2 MG/ML VIAL ONE (10:42)
[2018-08-14] MEDS ORDERED: PROPOFOL IV EMULSION 10 MG/ML 20 ML VIAL IV ONE (10:42)
[2018-08-14] MEDS ORDERED: LIDOCAINE 2% JELLY 5 ML TUBE ONE (11:53)
--- NOTE | 2018-08-14 12:37 | Anesthesiology Progress Note ---
Date of Service August 14, 2018 Anesthesia Post Procedure Vital Signs Vital Signs: Temp Pulse Pulse Resp BP Pulse Ox 08/14/18 12:20 36.6 C 67 17 142/67 H 100 08/14/18 12:10 36.6 C 67 17 161/75 H 98 08/14/18 12:00 36.6 C 74 14 176/88 H 100 08/14/18 11:50 36.4 C L 87 19 155/85 H 100 08/14/18 11:40 36.4 C L 88 25 H 116/99 99 08/14/18 11:30 36.4 C L 68 13 189/93 H 97 08/14/18 11:20 36.4 C L 79 16 197/109 H 97 08/14/18 11:10 36.4 C L 73 15 163/90 H 99 08/14/18 11:00 36.4 C L 83 16 165/107 H 98 08/14/18 10:51 36.4 C L 87 14 180/106 H 99 08/14/18 09:00 37.4 C 59 L 18 174/76 H 98 Pain Intensity Abdomen: Pain Intensity: 2 Transfer of Care Handoff Completed per policy Notes Mental Status: alert / awake / arousable and participated in evaluation Patient Amnestic to Procedure: Yes Nausea / Vomiting: adequately controlled Pain: adequately controlled Airway Patency, RR, SpO2: stable & adequate BP & HR: stable & adequate Hydration State: stable & adequate Anesthetic Complications: no major complications apparent and see Notes below Notes: On arrival to PACU, pt complaining of need to pee. Bladder scan significant for about 800 cc of urine. Attempt on bed salvador unsuccessful. Attemp t x 2 for straight cath by bedside nursing unsuccessful. Attempt on bedside cammode unsuccessful. Stat consult placed with Dr. Lopez for urology who placed folley at bedside. Pt confortable after placement. No other complications noted.
--- NOTE | 2018-08-14 12:39 | Operative Report ---
DATE OF OPERATION: 08/14/2018 NAME OF OPERATION: Examination under anesthesia, fistulotomy x2, Seton placement x2 abscess drainage and culture. PREOPERATIVE DIAGNOSIS: Perianal fistula. POSTOPERATIVE DIAGNOSIS: Perianal fistula with abscess. STAFF SURGEON: Lester Kaba MD ANESTHESIA: General with 0.5% plain Marcaine for surrounding area. DESCRIPTION OF PROCEDURE: The patient was brought in the operating room. After appropriate anesthetic, she was placed on the operating room table in the prone position. Her buttocks were taped apart. It was prepped and draped in usual fashion. On inspection, she had 2 openings, 1 posterior, 2-3 cm from the anus and 1 right posterolateral, 2-3 cm from the anus with induration. On exploration of these, she did have an abscess in both sites with what appeared to be openings into the posterior anorectal area. It was somewhat difficult with the induration to assess whether this was above or below the external sphincter muscles. Therefore, I opted to open the anoderm with fistulotomy and then place silk Seton sutures through the fistula tracts. I did not feel comfortable opening the areas because of the potential for incontinence. We did culture the site. It did appear that the internal opening was posterior and the same for both fistulas almost as a horseshoe fistula. I did anesthetize the tissue using 0.5% plain Marcaine and then a dressing was applied. My plan is to treat the patient with antibiotics and then refer her for a colorectal surgery evaluation. Also, as a note, the patient was concerned about hemorrhoids. She had minimal internal hemorrhoidal tissue. I did not feel that anything required excision. I attest to the content of the Intraoperative Record and any orders documented therein. Any exception s are noted below.
[2018-08-14] MEDS ORDERED: PIPERACILL/TAZOBAC CONSULT ACTIVE PRN (13:08)
[2018-08-14] MEDS ORDERED: HYDROmorphone INJ 1 MG/ML SYRINGE IV PRN (13:08)
[2018-08-14] MEDS ORDERED: SODIUM CHLORIDE 0.9% 1000ML 1,000 ML IV SCH (13:08)
[2018-08-14] MEDS ORDERED: PROMETHAZINE HCL 12.5 MG in SODIUM CHLORIDE 0.9% 50 ML IV PRN (13:08)
[2018-08-14] MEDS ORDERED: HYDROmorphone INJ 0.5 MG/0.5 ML SYR IV PRN (13:08)
[2018-08-14] MEDS ORDERED: TRAMADOL HCL 50 MG TABLET PO PRN (13:08)
[2018-08-14] MEDS ORDERED: IBUPROFEN 600 MG TAB PO PRN (13:08)
--- NOTE | 2018-08-14 13:37 | Urology Consultation ---
Date of Consultation August 14, 2018 Assessment & Plan (1) Postoperative urinary retention: Procedure: Coude catheter inserted via sterile technique at bedside by Dr. Lopez. Bladder drained ~900cc clear yellow urine into drainage bag. Insertion was well tolerated, patient reports that pelvic pressure improved and appears more comfortable. I have made arrangements for outpatient URO evaluation and TOV. Recommend maintaining Banuelos until then. Continue Tamsulosin QHS. Thank you for allowing us to participate in the inpatient care of Ms. Garzon. Please contact our service if we can be of further assistance during hospitalization. History of Present Illness Attending Physician: Lester Kaba MD, FACS History of Present Illness Ms. Garzon is a 73 YO female unable to empty her bladder s/p rectal surgery with Dr. Kaba. Our service was called to the PACU when nurses were unable to place catheter after patient was bladder scanned for 800cc. Difficult to obtain accurate ROS due to recent anesthesia, however patient reports that she had some baseline urinary frequency. Thinks she may have previously seen a urologist in [place]. Allergies Allergy/AdvReac Type Severity Reaction Status Date / Time aspirin Allergy Intermediate "ASTHMA" Verified 08/14/18 08:58 celecoxib Allergy Intermediate "ASTHMA Verified 08/14/18 08:58 ATTACK" codeine Allergy Intermediate "FACE Verified 08/14/18 08:58 PUFFS UP" morphine Allergy Intermediate "FACE Verified 08/14/18 08:58 PUFFS UP" latex Allergy Mild RASH Verified 08/14/18 08:58 caffeine AdvReac Intermediate HEADACHE Verified 08/14/18 08:58 midazolam AdvReac Intermediate extreme Verified 08/14/18 08:58 anxiety fentanyl AdvReac Mild DELIRIUM Verified 08/14/18 08:58 lorazepam AdvReac Mild ANXIOUS Verified 08/14/18 08:58 OPIOIDS AdvReac Intermediate HALLUCINATI Uncoded 08/14/18 08:58 ONS Home Medications Home Medications Medication Instructions Recorded Confirmed Type acetaminophen 1,000 mg PO Q6H PRN 04/09/18 08/14/18 History cholecalciferol (vitamin D3) 2,000 units PO QAM 04/09/18 08/14/18 History [Vitamin D3] diphenhydramine HCl [Benadryl 25 mg PO DIRECTED PRN 04/09/18 08/14/18 History Allergy] metoprolol succinate 25 mg PO DAILY 04/09/18 08/14/18 History rivaroxaban 20 mg PO HS 04/09/18 08/14/18 History ondansetron HCl 8 mg PO Q8 PRN 06/26/18 08/14/18 History ibuprofen 200 mg PO Q6H PRN 07/10/18 08/14/18 History Patient History Medical History Carcinoid tumor of abdomen With mets. [facility]s [facility], Dr. Escalera. Receiving Sandostatin injection monthly. Hypertension Hyperlipidemia BORDERLINE Urinary retention FOLLOWS WITH UROLOGY IN [place] Asthma (Acute) NO INHALER Atrial fibrillation (Acute) On Xarelto On anticoagulant therapy (Acute) Osteoarthritis (Acute) Syncope (Acute) Seen in [facility] ED 03/2018 and admitted. Echo WNL. Ruled 2/2 vasodilation and flushing 2/2 carcinoid syndrome. Anal fistula Surgical History History of dilatation and curettage History of esophagogastroduodenoscopy (EGD) History of liver biopsy History of tooth extraction History of adenoidectomy (Acute) History of appendectomy (Acute) History of cardiac cath (Acute) [facility] 2016; "Normal coronary arteries." History of cholecystectomy (Acute) History of colonoscopy (Acute) History of hysterectomy (Acute) History of tonsillectomy (Acute) Nausea and vomiting after administration of anesthetic agent (Acute) Status post incision and drainage deana-rectal abscess, 06/27/18 Family History Sister Family history of diabetes mellitus Social History Preferred Language: Jordanian Communication Ability: Effective Air Conditioning Equipment Mechanic Required: No Beliefs That Will Affect Care: None marital status: Current Living Situation: Spouse Other Information That Helps Us Care for You: No Feels Safe at Home: Yes Safety Concerns: Feels Safe At This Time Smoking Status: Never smoker Do You Dip or Chew Tobacco: No Second Hand Exposure: Yes Tobacco Cessation Education Requested by Patient: No Hx Alcohol Use: No Hx Substance Use: No Review of Systems Review of Systems: Unable to obtain accurately due to anesthesia, immediate post op status. Physical Exam Physical Exam: Mild distress. Respiratory effort normal +O2 via NC. No JVD. Abdomen soft, +vomiting. Alert & intermittently oriented due to waking from anesthesia. : +Bladder distention, labia and urethra mildly inflamed. Results & Data Vital Signs (Past 12 Hours) Vital Signs Temp Pulse Pulse Resp BP Pulse Ox 08/14/18 12:40 36.6 C 65 18 163/76 H 100 08/14/18 12:30 36.6 C 561 H 16 140/75 100 08/14/18 12:20 36.6 C 67 17 142/67 H 100 08/14/18 12:10 36.6 C 67 17 161/75 H 98 08/14/18 12:00 36.6 C 74 14 176/88 H 100 08/14/18 11:50 36.4 C L 87 19 155/85 H 100 08/14/18 11:40 36.4 C L 88 25 H 116/99 99 08/14/18 11:30 36.4 C L 68 13 189/93 H 97 08/14/18 11:20 36.4 C L 79 16 197/109 H 97 08/14/18 11:10 36.4 C L 73 15 163/90 H 99 08/14/18 11:00 36.4 C L 83 16 165/107 H 98 08/14/18 10:51 36.4 C L 87 14 180/106 H 99 08/14/18 09:00 37.4 C 59 L 18 174/76 H 98
[2018-08-14] MEDS ORDERED: PIPERACILLIN/TAZOBACTAM 3.375 GM in DEXTROSE 5% 100 ML IV ONE (14:15)
--- NOTE | 2018-08-14 14:20 | Hospitalist Consultation ---
Date of Consultation August 14, 2018 Assessment & Plan (1) Perianal fistula: -POD #0 perianal fistulotomy today by Dr. Kaba -Recent admission to [facility] for perirectal abscess, has been following with general surgery as an outpatient and not improving and therefore presented for planned procedure today -Currently receiving Zosyn, await surgical cultures (cultures from previous admission grew Citrobacter freundii and Bacteroides thetaiotaomicron) -Management as per general surgery (2) Postoperative urinary retention: -Urology consulted by general surgery in PACU; Banuelos catheter was placed and now draining clear yellow urine -Management as per urology -Noted history of interstitial cystitis (3) Carcinoid tumor of abdomen: -No acute issues, following with [facility] [place] (4) Atrial fibrillation: -Rate controlled on metoprolol -Continue Xarelto (general surgery has ordered to resume) (5) DVT prophylaxis: -On Xarelto Supervising Physician Co-Signing Physician Notes I have seen and examined the patient and have discussed the case with the enmanueli jeanette above. I agree with the assessment and plan as stated with the following exceptions. She is reporting some "trouble with my asthma." There is no respiratory distress or oxygen requirement and she is not wheezing on exam. She reports taking Benadryl frequently for this issue as well as for heartburn, which is also currently plaguing her. She denies other issues and reports that her post-op pain is managed. In the setting of acute urinary retention post- operatively, will place Benadryl on hold. Pepcid IV prn heartburn and Albuterol inhaler PRN SOB/wheezing was given to try and these options were discussed with the nurse. She appears to lean on the benadryl at home, and if she insists on taking it, would not oppose. However, would trial these medications first. On exam, pt in no acute distress, lungs CTA, normal CV exam, no peripheral edema, abdomen NTND and soft. DO Brodie History of Present Illness Reason for Consultation: Postop medical management Requesting Physician: Dr. Kaba Attending Physician: Dr. aClloway History of Present Illness 73-year-old female who is status post perianal fistulotomy today by Dr. Kaba. Patient was admitted to [facility] 06/26 - 06/29 for perirectal abscess and underwent I&D during that admission. Patient presented for the planned procedure today. Postoperatively, she is doing well. She reports a poor appetite however denies nausea and abdominal pain. Surgical incisional pain is well controlled. She denies chest pain shortness of breath. No lightheadedness or dizziness. In PACU, patient was found to have urinary retention and urology was consulted who placed a Banuelos catheter that is now draining clear yellow urine. Allergies Allergy/AdvReac Type Severity Reaction Status Date / Time aspirin Allergy Intermediate "ASTHMA" Verified 08/14/18 08:58 celecoxib Allergy Intermediate "ASTHMA Verified 08/14/18 08:58 ATTACK" codeine Allergy Intermediate "FACE Verified 08/14/18 08:58 PUFFS UP" morphine Allergy Intermediate "FACE Verified 08/14/18 08:58 PUFFS UP" latex Allergy Mild RASH Verified 08/14/18 08:58 caffeine AdvReac Intermediate HEADACHE Verified 08/14/18 08:58 midazolam AdvReac Intermediate extreme Verified 08/14/18 08:58 anxiety fentanyl AdvReac Mild DELIRIUM Verified 08/14/18 08:58 lorazepam AdvReac Mild ANXIOUS Verified 08/14/18 08:58 OPIOIDS AdvReac Intermediate HALLUCINATI Uncoded 08/14/18 08:58 ONS Home Medications Home Medications Medication Instructions Recorded Confirmed Type acetaminophen 1,000 mg PO Q6H PRN 04/09/18 08/14/18 History cholecalciferol (vitamin D3) 2,000 units PO QAM 04/09/18 08/14/18 History [Vitamin D3] diphenhydramine HCl [Benadryl 25 mg PO DIRECTED PRN 04/09/18 08/14/18 History Allergy] metoprolol succinate 25 mg PO DAILY 04/09/18 08/14/18 History rivaroxaban 20 mg PO HS 04/09/18 08/14/18 History ondansetron HCl 8 mg PO Q8 PRN 06/26/18 08/14/18 History ibuprofen 200 mg PO Q6H PRN 07/10/18 08/14/18 History Patient History Medical History Asthma (Chronic) NO INHALER Atrial fibrillation (Chronic) On Xarelto Osteoarthritis (Chronic) Hyperlipidemia (Chronic) BORDERLINE Anal fistula (Chronic) Interstitial cystitis (Chronic) Chronic anticoagulation (Chronic) Coronary vasospasm (Chronic) 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 [facility], Dr. Escalera. Receiving Sandostatin injection monthly. Hypertension (Chronic) Surgical History History of cardiac cath (Chronic) [facility] 2016; "Normal coronary arteries." History of tooth extraction (Chronic) History of liver biopsy (Chronic) History of dilatation and curettage (Chronic) S/P appendectomy (Chronic) History of tonsillectomy and adenoidectomy (Chronic) S/P cholecystectomy (Chronic) History of hysterectomy (Chronic) Family History Sister Family history of diabetes mellitus Social History Preferred Language: Turkmen Communication Ability: Effective Science Intern Required: No Beliefs That Will Affect Care: None marital status: Current Living Situation: Spouse Other Information That Helps Us Care for You: No Feels Safe at Home: Yes Safety Concerns: Feels Safe At This Time Smoking Status: Never smoker Do You Dip or Chew Tobacco: No Second Hand Exposure: Yes Tobacco Cessation Education Requested by Patient: No Hx Alcohol Use: No Hx Substance Use: No Review of Systems Review of Systems: ROS per HPI, all other systems reviewed and negative Physical Exam Constitutional: WD/WN, vitals as above Eyes: PERRL, conjunctivae normal, anicteric sclerae ENMT: external ear and nose normal, oropharynx normal Respiratory: normal respiratory effort, lungs clear to auscultation Cardiovascular: Rate/Rhythm: regular rate and regular rhythm Vessels: normal peripheral pulses Extremities: no edema Gastrointestinal (Abdomen): normal bowel sounds, soft, nontender, no hepatosplenomegaly Surgical rectal dressing dry and intact Musculoskeletal: no cyanosis or clubbing, extremities motor strength 5/5 Skin: no rashes, warm and dry Neurologic: PERRL, EOMI, accommodation nl, no face palsy, no dysarthria Psychiatric: A+Ox3, euthymic affect Genitourinary: Banuelos in place draining clear yellow urine Results & Data Vital Signs (Past 12 Hours) Vital Signs Temp Pulse Pulse Resp BP BP Pulse Ox 08/14/18 14:07 36.7 C 54 L 16 153/77 H 99 08/14/18 13:30 60 16 165/95 H 99 08/14/18 13:00 37.1 C 60 16 148/84 H 99 08/14/18 12:40 36.6 C 65 18 163/76 H 100 08/14/18 12:30 36.6 C 561 H 16 140/75 100 08/14/18 12:20 36.6 C 67 17 142/67 H 100 08/14/18 12:10 36.6 C 67 17 161/75 H 98 08/14/18 12:00 36.6 C 74 14 176/88 H 100 08/14/18 11:50 36.4 C L 87 19 155/85 H 100 08/14/18 11:40 36.4 C L 88 25 H 116/99 99 08/14/18 11:30 36.4 C L 68 13 189/93 H 97 08/14/18 11:20 36.4 C L 79 16 197/109 H 97 08/14/18 11:10 36.4 C L 73 15 163/90 H 99 08/14/18 11:00 36.4 C L 83 16 165/107 H 98 08/14/18 10:51 36.4 C L 87 14 180/106 H 99 08/14/18 09:00 37.4 C 59 L 18 174/76 H 98
[2018-08-14 14:31] LABS: Creatinine Clr Calc Pharmacy 41.6 ml/min; Est GFR (African American) 61.7; Est GFR (Non-African American) 53.3
[2018-08-14] MEDS: ACETAMINOPHEN 325 MG TAB PO PRN (18:15)
[2018-08-14] MEDS ORDERED: ALBUTEROL HFA 8 GM INHALER INH PRN (18:25)
[2018-08-14] MEDS ORDERED: FAMOTIDINE 20 MG in SYRINGE 3 ML IV PRN (18:30)
[2018-08-14] MEDS: PIPERACILLIN/TAZOBACTAM 3.375 GM in DEXTROSE 5% 100 ML IV SCH (20:25)
[2018-08-14] MEDS ORDERED: RIVAROXABAN 20 MG TAB PO SCH (21:00)
[2018-08-14] MEDS: TAMSULOSIN HCL 0.4 MG CAP PO SCH (21:32)
[2018-08-14] MEDS: DOCUSATE SODIUM/SENNA 50/8.6MG TAB PO SCH (21:32)
[2018-08-15] MEDS: PIPERACILLIN/TAZOBACTAM 3.375 GM in DEXTROSE 5% 100 ML IV SCH ×3 (03:58→20:44)
--- NOTE | 2018-08-15 06:57 | Progress Note ---
Date of Service August 15, 2018 Assessment & Plan (1) Perianal fistula: pt w/ 2 perirectal fistulas- posterior- setons placed to control infection. will need f/u with colorectal surgery [facility] Paiz as outpt. IV atbx for now. has travis- Urology wanted to leave in - will need f/u in their office. Possible d/c tomorrow- hold Xaralto today Subjective see A/P Results & Data Vital Signs (Past 12 Hours) Vital Signs Temp Pulse Pulse Resp BP BP Pulse Ox 08/15/18 03:48 36.6 C 56 L 16 120/71 98 08/14/18 23:21 36.9 C 50 L 16 113/66 97 08/14/18 19:27 37.0 C 48 L 16 148/82 H 99
[2018-08-15 07:56] LABS: Hematocrit (blood only) 31.3 % (37-47); Hemoglobin 10.1 g/dL (12.0-16.0); Mean Corpuscular Hgb Conc 32.3 g/dL (32-36); Mean Corpuscular Volume 88.9 fL (80-100); Mean Platelet Volume 11.1 fL (7.4-10.4); Platelet Count 235 K/uL (130-400); RDW Coefficient of Variation 16.7 % (11.5-14.5); RDW Standard Deviation 54.1 fL (36.4-46.3); Red Blood Count 3.52 M/uL (4.2-5.4); White Blood Count 5.49 K/uL (4.8-10.8)
--- NOTE | 2018-08-15 08:12 | Anesthesiology Progress Note ---
Date of Service August 15, 2018 Anesthesia Post Procedure Vital Signs Vital Signs: Temp Pulse Pulse Pulse Resp BP BP 08/15/18 07:36 36.8 C 52 L 16 127/73 08/15/18 03:48 36.6 C 56 L 16 120/71 08/14/18 23:21 36.9 C 50 L 16 113/66 08/14/18 19:27 37.0 C 48 L 16 148/82 H 08/14/18 16:07 36.6 C 58 L 17 150/78 H 08/14/18 15:03 37.0 C 62 18 127/75 08/14/18 14:07 36.7 C 54 L 16 153/77 H 08/14/18 13:30 60 16 165/95 H 08/14/18 13:00 37.1 C 60 16 148/84 H 08/14/18 12:40 36.6 C 65 18 163/76 H 08/14/18 12:30 36.6 C 561 H 16 140/75 08/14/18 12:20 36.6 C 67 17 142/67 H 08/14/18 12:10 36.6 C 67 17 161/75 H 08/14/18 12:00 36.6 C 74 14 176/88 H 08/14/18 11:50 36.4 C L 87 19 155/85 H 08/14/18 11:40 36.4 C L 88 25 H 116/99 08/14/18 11:30 36.4 C L 68 13 189/93 H 08/14/18 11:20 36.4 C L 79 16 197/109 H 08/14/18 11:10 36.4 C L 73 15 163/90 H 08/14/18 11:00 36.4 C L 83 16 165/107 H 08/14/18 10:51 36.4 C L 87 14 180/106 H 08/14/18 09:00 37.4 C 59 L 18 174/76 H Pulse Ox 08/15/18 07:36 99 08/15/18 03:48 98 08/14/18 23:21 97 08/14/18 19:27 99 08/14/18 16:07 98 08/14/18 15:03 97 08/14/18 14:07 99 08/14/18 13:30 99 08/14/18 13:00 99 08/14/18 12:40 100 08/14/18 12:30 100 08/14/18 12:20 100 08/14/18 12:10 98 08/14/18 12:00 100 08/14/18 11:50 100 08/14/18 11:40 99 08/14/18 11:30 97 08/14/18 11:20 97 08/14/18 11:10 99 08/14/18 11:00 98 08/14/18 10:51 99 08/14/18 09:00 98 Pain Intensity Abdomen: Pain Intensity: 0 Notes Mental Status: alert / awake / arousable Patient Amnestic to Procedure: Yes Nausea / Vomiting: adequately controlled Pain: adequately controlled Airway Patency, RR, SpO2: stable & adequate BP & HR: stable & adequate Hydration State: stable & adequate Anesthetic Complications: no major complications apparent and Pt Satisfied with anesthetic care
[2018-08-15 08:13] LABS: Partial Thromboplastin Time 27.1 Seconds (21.0-31.0)
[2018-08-15] MEDS: DOCUSATE SODIUM/SENNA 50/8.6MG TAB PO SCH ×2 (08:14→20:45)
[2018-08-15] MEDS: METOPROLOL SUCC 25MG EXT REL TAB PO SCH (08:14)
[2018-08-15 08:32] LABS: BUN Creatinine Ratio 7.6 (10-20); Calcium 8.8 mg/dl (8.5-10.1); Creatinine Clr Calc Pharmacy 45.1 ml/min; Est GFR (Non-African American) 58.7; Potassium 3.5 mmol/L (3.5-5.1)
[2018-08-15] MEDS: HEPARIN SOD 5,000 UNIT/0.5 ML VIAL SQ SCH ×2 (09:36→20:50)
[2018-08-15] MEDS ORDERED: PHENAZOPYRIDINE HCL 200 MG TAB PO PRN (11:45)
--- NOTE | 2018-08-15 15:04 | Hospitalist Progress Note ---
Date of Service August 15, 2018 Assessment & Plan (1) Asthma: The patient does not use regular bronchodilators. She has an irritant induced asthma in response to secondary smoke from her in her home as well as bronchial hyperreactivity to perfumes, cleaning agents or other vapors. Will provide an albuterol bronchodilator for acute symptom control as needed to use as an alternative to Benadryl which she is currently using twice daily. Continue to try to avoid the exposure which is obviously difficult as her smokes actively. Would recommend follow-up with pulmonology or allergy to discuss additional alternatives for treatment. (2) Perianal fistula: -POD #1 perianal fistulotomy today by Dr. Kaba -Recent admission to [facility] for perirectal abscess, has been following with general surgery as an outpatient and not improving and therefore presented for planned procedure today -Currently receiving Zosyn, await surgical cultures (cultures from previous admission grew Citrobacter freundii and Bacteroides thetaiotaomicron) -Management as per general surgery (3) Postoperative urinary retention: Likely precipitated with chronic daily Benadryl use. Minimize anticholinergics. Discussed this with urology who will perform a trial of void as outpatient in 7 to 10 days. Noted history of interstitial cystitis. (4) Carcinoid tumor of abdomen: -No acute issues, following with [facility] [place] for upcoming radiation treatments (5) Atrial fibrillation: -Rate controlled on metoprolol -Continue Xarelto (general surgery has ordered to resume) (6) Food allergy, peanut: Patient states that throat swells in response to peanuts or other nuts or not butters. Provided EpiPen for rescue and discussed how to use this if needed. Follow-up with allergy recommended to establish care. (7) DVT prophylaxis: -On Xarelto Subjective Doing well postop, pain is well controlled. She is ambulatory. We discussed her not allergy and this was added to her allergy profile with an EpiPen provi ded. We discussed that she takes Benadryl 50 mg in the morning and 25 mill grams at night daily in response to shortness of breath secondary to smoke inhalation from her cigarettes. She is also very reactive to cleaning agents and other perfumes that are strong. Review of Systems Review of Systems: All systems reviewed & are unremarkable except as noted in HPI & below Physical Exam Physical Exam: CONSTITUTIONAL: WNWD, vitals as above, generally well- appearing EYES: normal conjunctivae, no scleral icterus ENT: MMM RESPIRATORY: clear to auscultation bilaterally, no crackles, rales or wheezes, normal respiratory effort CARDIOVASCULAR: regular rate and rhythm, S1 and 2 heard without murmurs, gallops or rubs, no JVD, no peripheral edema GASTROINTESTINAL: normal bowel sounds, soft, nontender, no hepatomegaly, no g uarding MUSCULOSKELETAL: strength 5/5 throughout, head is normocephalic and atraumatic SKIN: warm and dry NEUROLOGIC: CN 2-12 grossly intact, no gross focal deficit. PSYCHIATRIC: alert cooperative and oriented to person, place and time. Results & Data Vital Signs (Past 12 Hours) Vital Signs Temp Pulse Resp BP Pulse Ox 08/15/18 10:55 37.0 C 69 18 133/75 95 08/15/18 07:36 36.8 C 52 L 16 127/73 99 08/15/18 03:48 36.6 C 56 L 16 120/71 98 Laboratory Results Short CBC 08/15/18 Range/Units 07:39 WBC 5.49 (4.8-10.8) K/uL Hgb 10.1 L (12.0-16.0) g/dL Hct 31.3 L (37-47) % Plt Count 235 (130-400) K/uL BMP 08/15/18 07:39 Sodium 143 Potassium 3.5 Chloride 109 H Carbon Dioxide 27 BUN 7 Creatinine 0.96 Glucose 119 H Calcium 8.8 Medications Administered Current Inpatient Medications Acetaminophen (Tylenol) 650 mg PO Q4H PRN PRN Reason: Pain Stop: 09/13/18 13:07 Last Admin: 08/14/18 18:15 Dose: 650 mg Documented by: Albuterol (Ventolin Hfa) 2 puffs INH QID PRN PRN Reason: SOB/wheezing Stop: 09/13/18 18:24 Last Admin: 08/14/18 20:34 Dose: 2 puffs Documented by: Diphenhydramine HCl (Benadryl Capsule) 25 mg PO BID PRN PRN Reason: Allergic Symptoms Stop: 09/13/18 18:07 Diphenhydramine HCl (Benadryl Capsule) 50 mg PO DAILY VIVEK Stop: 09/14/18 08:59 Last Admin: 08/15/18 08:14 Dose: 50 mg Documented by: Heparin Sodium (Porcine) (Heparin Sodium (Porcine)) 5,000 units SQ Q12 VIVEK Stop: 09/14/18 08:59 Last Admin: 08/15/18 09:36 Dose: 5,000 units Documented by: Hydromorphone HCl (Dilaudid) 0.5 mg IV Q3HWA PRN PRN Reason: Pain Stop: 08/28/18 13:07 Hydromorphone HCl (Dilaudid) 1 mg IV Q3HWA PRN PRN Reason: Pain Stop: 08/28/18 13:07 Promethazine HCl 12.5 mg/ (Sodium Chloride) 50.5 mls @ 204 mls/hr IV Q6H PRN PRN Reason: Nausea And Vomiting Stop: 09/13/18 13:07 Piperacillin Sod/Tazobactam (Sod 3.375 gm/ Dextrose) 115 mls @ 28.75 mls/hr IV Q8H VIVEK Stop: 08/24/18 19:59 Last Admin: 08/15/18 11:29 Dose: 28.8 mls/hr Documented by: Famotidine 20 mg/ Syringe 5 mls @ 2.5 mls/min IV Q12H PRN PRN Reason: Heartburn Stop: 09/13/18 18:29 Ibuprofen (Motrin) 600 mg PO Q6H PRN PRN Reason: Pain Stop: 09/13/18 13:07 Metoprolol Succinate (Toprol Xl) [address] [facility] Stop: 09/14/18 08:59 Last Admin: 08/15/18 08:14 Dose: 25 mg Documented by: Miscellaneous Information (Consult) 1 ea N/A UD PRN PRN Reason: Consult Stop: 09/13/18 13:07 Ondansetron HCl (Zofran) 4 mg IV 4XDQ4H PRN PRN Reason: Nausea Stop: 09/13/18 13:07 Phenazopyridine HCl (Pyridium) 200 mg PO TID PRN PRN Reason: Bladder pain Stop: 09/14/18 11:44 Last Admin: 08/15/18 13:49 Dose: 200 mg Documented by: Senna/Docusate Sodium (Senokot S) [address] [facility] Stop: 09/13/18 20:59 Last Admin: 08/15/18 08:14 Dose: 1 tab Documented by: Tamsulosin HCl (Flomax) 0.4 mg PO HS VIVEK Stop: 09/13/18 20:59 Last Admin: 08/14/18 21:32 Dose: 0.4 mg Documented by: Tramadol HCl (Ultram) 50 mg PO Q4H PRN PRN Reason: Pain Stop: 09/13/18 13:07
[2018-08-15] MEDS: ACETAMINOPHEN 325 MG TAB PO PRN (15:34)
[2018-08-15] MEDS: TAMSULOSIN HCL 0.4 MG CAP PO SCH (20:45)
[2018-08-16] MEDS: PIPERACILLIN/TAZOBACTAM 3.375 GM in DEXTROSE 5% 100 ML IV SCH (04:23)
--- NOTE | 2018-08-16 06:34 | Discharge Summary ---
PRINCIPAL DIAGNOSIS: Perirectal fistula. PROCEDURES: The patient underwent examination under anesthesia with fistulotomy and Seton placement. HISTORY OF PRESENT ILLNESS: The patient is a 73-year-old female who has been having pain and drainage from her perianal area, diagnosed with perianal fistula and perirectal fistula. She was brought to the operating room on 08/14/2018 where she underwent examination with findings of 2 fistulas posteriorly in the anal area. These were opened and examined and then Setons placed. She has done quite well on antibiotics to be discharged on antibiotics and followed up in our office and also with the [facility] Colorectal Surgery and also urology for which she had a Banuelos placed during her hospitalization for urinary retention.
[2018-08-16 07:18] LABS: Hematocrit (blood only) 31.4 % (37-47); Mean Corpuscular Hgb Conc 31.8 g/dL (32-36); Mean Corpuscular Volume 88.7 fL (80-100); Mean Platelet Volume 10.8 fL (7.4-10.4); Platelet Count 214 K/uL (130-400); RDW Coefficient of Variation 16.7 % (11.5-14.5); RDW Standard Deviation 54.5 fL (36.4-46.3); Red Blood Count 3.54 M/uL (4.2-5.4); White Blood Count 4.67 K/uL (4.8-10.8)
[2018-08-16 07:28] LABS: Prothrombin Time 10.5 Seconds (9.0-12.0)
[2018-08-16 07:53] LABS: Creatinine Clr Calc Pharmacy 48.6 ml/min; Est GFR (African American) 74.5; Est GFR (Non-African American) 64.3
[2018-08-16] MEDS: DOCUSATE SODIUM/SENNA 50/8.6MG TAB PO SCH (08:28)
[2018-08-16] MEDS: METOPROLOL SUCC 25MG EXT REL TAB PO SCH (08:28)
[2018-08-16] MEDS: HEPARIN SOD 5,000 UNIT/0.5 ML VIAL SQ SCH (08:29)
[2018-08-16] MEDS: ACETAMINOPHEN 325 MG TAB PO PRN (10:14)
--- NOTE | 2018-08-16 10:16 | Urology Progress Note ---
Date of Service August 16, 2018 Assessment & Plan (1) Postoperative urinary retention: See discussion below. Maintain Banuelos until outpatient URO follow up. Please contact us with further questions/concerns. Subjective 73 YO female with post op UR. Asked to see patient today regarding further questions about her Banuelos. She requests removal, however I explained the physiology of UR and our recommendation that she keep in place for 7-10d. She is agreeable to this. She has already been in contact with our outpatient office regarding her outpatient follow up appointment with trial of void - she will confirm appointment details tomorrow when her daughter is available to schedule. Home Banuelos care reviewed. Can continue Pyridium at home for comfort as needed. No pain. No hematuria. No fevers. Review of Systems Review of Systems: All systems reviewed & are unremarkable except as noted in HPI & below Physical Exam Physical Exam: NAD. Resp effort normal. No JVD. Abd soft/nontender. : Banuelos in place draining yellow urine. A&O x3, appropriate affect. Results & Data Vital Signs (Past 12 Hours) Vital Signs Temp Pulse Resp BP BP Pulse Ox 08/16/18 07:05 36.8 C 46 L 16 118/64 98 08/16/18 04:23 107/63 08/15/18 22:46 36.7 C 45 L 16 97/44 L 98
== END 2018-08-16 14:04 | disposition home health service (06) | DRG 348 ==
LOC: ASU 08:18 → 3W 08:18

== ENCOUNTER 2018-10-21 13:44 | Inpatient (IN) ==
[2018-10-21] MEDS ORDERED: ONDANSETRON INJ 2 MG/ML 2 ML VIAL IV STA (13:55)
[2018-10-21] MEDS ORDERED: SODIUM CHLORIDE 0.9% 1000ML 1,000 ML IV ONE ×2 (13:55→15:26)
--- NOTE | 2018-10-21 14:08 | Emergency Department Note ---
Entered by Shannon Grider acting as a scribe for History of Present Illness General Chief complaint: Syncope (Near Syncope) Source: patient and EMS History of Present Illness Onset (ago): hour(s) (this morning) Location: head Pain Consistency: + other (episode) Quality: + other (syncope) Associated symptoms: + denies other symptoms (chest pain, vomiting, black or bloody stools, AMS, tonic-clonic reaction) and + other (nausea, excessive gas, abdominal pain (resolved), flushing in face, clammy skin (resolved)) The patient is a 73 year old female with a recent history of liver cancer that is presenting to the Emergency Room with complaints of a syncopal episode that occurred this morning while the patient was having a bowel movement. The patient was brought to the ED via EMS. EMS reports that the patients eyes rolled back into her head during the episode but denies that the patient had any tonic- clonic episodes. EMS notes that the episode lasted for around 45 seconds. EMS denies that the patient has any altered mental status. EMS notes that the patient was 70-80 systolic during the trip to the ED but notes that her BP graeme to 112/81 upon arrival. EMS states that they were unable to draw any blood en route. EMS reports that the patient is feeling nauseous but denies that she has vomited. EMS notes that the patient has been intermittently flushed in her face and that she felt slightly clammy. EMS states that the patient was found to have liver cancer recently and is scheduled to start radiation treatment with [facility] soon. The patient reports that she felt generally well upon waking today. She notes that her lips felt numb before her symptoms began. She states that she had some abdominal pain and that she went to have a bowel movement. She notes that her bowel movement this morning was not abnormal. She denies falling during the episode. She states that she currently feels like she has excess gas in her bowels and notes that she feels like she needs to have a bowel movement. She denies any chest pain, neck pain or abdominal pain currently. She denies any recent black or bloody stools. The patient reports that she has carcinoids on her bowels as well as her liver. She denies receiving any chemotherapy or radiation treatment yet. She notes that she is taking Xarelto for a history of atrial fibrillation. She denies any falls or travel recently. She denies any history of an [place]. The patient's family states that the patient had 4 episodes of syncope this morning while she was in the bathroom. Her family reports that the patient was groggy following her first episode and had difficulty speaking. Her family notes that the patient was weak and had difficulty standing on her own. Her family reports that the patient has had similar past episodes that are possibly secondary to hypotensive episodes while straining during a bowel movement. Home Medications Home Medications Medication Instructions Recorded Confirmed Type cholecalciferol (vitamin D3) 2,000 units PO QAM 04/09/18 10/21/18 History [Vitamin D3] metoprolol succinate 25 mg PO QPM 04/09/18 10/21/18 History rivaroxaban [Xarelto] 20 mg PO HS 04/09/18 10/21/18 History albuterol sulfate 2 puffs INH Q6H PRN #1 ea 08/15/18 10/21/18 Rx tamsulosin 0.4 mg PO HS 10/09/18 10/21/18 History docusate sodium 100 mg PO DAILY 10/21/18 10/21/18 History Allergies Allergy/AdvReac Type Severity Reaction Status Date / Time nut - unspecified Allergy Severe throat Verified 10/21/18 14:35 swelling aspirin Allergy Intermediate "ASTHMA" Verified 10/21/18 14:35 celecoxib Allergy Intermediate "ASTHMA Verified 10/21/18 14:35 ATTACK" codeine Allergy Intermediate "FACE Verified 10/21/18 14:35 PUFFS UP" morphine Allergy Intermediate "FACE Verified 10/21/18 14:35 PUFFS UP" latex Allergy Mild RASH Verified 10/21/18 14:35 caffeine AdvReac Intermediate HEADACHE Verified 10/21/18 14:35 midazolam AdvReac Intermediate extreme Verified 10/21/18 14:35 anxiety fentanyl AdvReac Mild DELIRIUM Verified 10/21/18 14:35 lorazepam AdvReac Mild ANXIOUS Verified 10/21/18 14:35 OPIOIDS AdvReac Intermediate HALLUCINATIONS Uncoded 10/21/18 14:35 (Fentanyl ok) Past Med/Surg History Medical History Liver cancer (Acute) Hemorrhoids (Chronic) Perirectal abscess (Chronic) Asthma (Chronic) NO INHALER Atrial fibrillation (Chronic) On Xarelto Osteoarthritis (Chronic) Hyperlipidemia (Chronic) BORDERLINE Anal fistula (Chronic) Interstitial cystitis (Chronic) Chronic anticoagulation (Chronic) Coronary vasospasm (Chronic) 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 [facility], Dr. Escalera. Receiving Sandostatin injection monthly. Hypertension (Chronic) Surgical History History of cardiac cath (Chronic) [facility] 2016; "Normal coronary arteries." History of tooth extraction (Chronic) History of liver biopsy (Chronic) History of dilatation and curettage (Chronic) S/P appendectomy (Chronic) History of tonsillectomy and adenoidectomy (Chronic) S/P cholecystectomy (Chronic) History of hysterectomy (Chronic) Family History Sister Family history of diabetes mellitus Social History Preferred Language: Slovenian Communication Ability: Effective Media Planner Required: No Beliefs That Will Affect Care: None marital status: Current Living Situation: Spouse Feels Safe at Home: Yes Smoking Status: Never smoker Second Hand Exposure: Yes ; Hx Alcohol Use: No Hx Substance Use: No Review of Systems See HPI for pertinent positives & negatives. and A total of 10 systems reviewed and were otherwise negative Physical Exam Vital Signs Vital Signs - 24 hr 10/21/18 13:56 10/21/18 14:00 10/21/18 14:05 Sepsis Recent Fever Within 48 Hours No Sepsis Action Taken by Nursing No Action Required Pulse Rate 92 H 91 H 89 Pulse Rate from SpO2 Sensor 91 H 87 Pulse Rhythm Regular Pulse Strength Normal Respiratory Rate 16 22 31 H Respiratory Effort / Characteristics Non-Labored Respiratory Depth Normal Respiratory Pattern Regular Blood Pressure 143/86 H 96/77 L 112/87 Blood Pressure Mean 105 83 95 Blood Pressure Position Lying Pulse Oximetry 94 95 95 Oxygen Delivery Method Room Air Room Air 10/21/18 14:10 10/21/18 14:15 10/21/18 14:21 Sepsis Recent Fever Within 48 Hours Sepsis Action Taken by Nursing Pulse Rate 89 84 82 Pulse Rate from SpO2 Sensor 89 81 82 Pulse Rhythm Pulse Strength Respiratory Rate 23 26 H 28 H Respiratory Effort / Characteristics Respiratory Depth Respiratory Pattern Blood Pressure 139/77 139/84 144/85 H Blood Pressure Mean 97 102 104 Blood Pressure Position Pulse Oximetry 98 97 97 Oxygen Delivery Method Room Air Room Air Room Air 10/21/18 14:25 10/21/18 14:30 10/21/18 14:36 Sepsis Recent Fever Within 48 Hours Sepsis Action Taken by Nursing Pulse Rate 82 78 78 Pulse Rate from SpO2 Sensor 82 78 76 Pulse Rhythm Pulse Strength Respiratory Rate 24 17 22 Respiratory Effort / Characteristics Respiratory Depth Respiratory Pattern Blood Pressure 137/91 165/85 H 164/95 H Blood Pressure Mean 106 111 118 Blood Pressure Position Pulse Oximetry 95 95 97 Oxygen Delivery Method Room Air Room Air Room Air 10/21/18 14:40 10/21/18 14:50 10/21/18 14:57 Sepsis Recent Fever Within 48 Hours Sepsis Action Taken by Nursing Pulse Rate 76 101 H Pulse Rate from SpO2 Sensor 73 104 H Pulse Rhythm Pulse Strength Respiratory Rate 19 19 Respiratory Effort / Characteristics Respiratory Depth Respiratory Pattern Blood Pressure 153/77 H 152/96 H Blood Pressure Mean 102 114 Blood Pressure Position Pulse Oximetry 96 96 96 Oxygen Delivery Method Room Air Room Air Room Air 10/21/18 15:00 10/21/18 15:31 10/21/18 15:45 Sepsis Recent Fever Within 48 Hours Sepsis Action Taken by Nursing Pulse Rate 86 108 H 75 Pulse Rate from SpO2 Sensor 108 H 74 Pulse Rhythm Pulse Strength Respiratory Rate 17 22 15 Respiratory Effort / Characteristics Respiratory Depth Respiratory Pattern Blood Pressure 153/95 H 145/80 H 145/90 H Blood Pressure Mean 114 101 108 Blood Pressure Position Pulse Oximetry 96 97 95 Oxygen Delivery Method Room Air Room Air Room Air 10/21/18 16:00 10/21/18 16:25 Sepsis Recent Fever Within 48 Hours Sepsis Action Taken by Nursing Pulse Rate 103 H 79 Pulse Rate from SpO2 Sensor 104 H 74 Pulse Rhythm Pulse Strength Respiratory Rate 16 26 H Respiratory Effort / Characteristics Respiratory Depth Respiratory Pattern Blood Pressure 156/73 H Blood Pressure Mean 100 Blood Pressure Position Pulse Oximetry 97 98 Oxygen Delivery Method Room Air Room Air GENERAL: Patient is awake and alert. She is very anxious appearing. EYES: The conjunctivae are clear. The pupils are round and reactive. EARS, NOSE, MOUTH AND THROAT: The nose is without any evidence of any deformity. Mucous membranes are moist.Tongue is midline NECK: The neck is nontender and supple. RESPIRATORY: Normal respiratory effort is noted. There is no evidence of wheezing rhonchi or rales to auscultation. CARDIOVASCULAR: Regular rate and rhythm noted. There no murmurs rubs or gallops normal S1 normal S2 GASTROINTESTINAL: The abdomen is moderately distended. There is diffuse tenderness to palpation. There is no pulsatile mass. There is significant tenderness in the left lower quadrant. MUSCULOSKELETAL/EXTREMITIES: There is no evidence of gross deformity. Full range of motion is noted in the hips and shoulders. SKIN: Skin is cool and dry. There is no significant pedal edema noted. NEUROLOGIC: Patient is awake alert and oriented x3. Strength is symmetric. Course 1346:The patient was evaluated in room A01. A complete history and physical examination was performed. 1530: I updated the patient on her current lab and imaging results. She is resting comfortably at this time. 1622: I discussed the patient's case with TAMIE Denny, who will evaluate the patient for further management and care with Dr. Calloway as the attending physician. 1630: Upon reevaluation, the patient is resting comfortably. I discussed laboratory and radiographic results with the patient. She verbalized agreement of the treatment plan. The patient will be evaluated for further management and care. Consultations Consultation #1: I discussed the patient's case with TAMIE Denny, who will evaluate the patient for further management and care with Dr. Calloway as the attending physician. Time: 16:22 Administered Medications Ioversol (Optiray 320 125ml) 118 ml IV ONCE PRN PRN Reason: Interaction Checking Stop: 10/25/18 15:18 Last Admin: 10/21/18 15:19 Dose: 118 ml Documented by: [id number] Discontinued Medications Sodium Chloride (Nss 1000ml) 1,000 mls @ 999 mls/hr IV .Q1H1M ONE Stop: 10/21/18 14:55 Last Infusion: 10/21/18 14:56 Dose: 0 mls/hr Documented by: [id number] Admin: 10/21/18 14:09 Dose: 999 mls/hr Documented by: [id number] Piperacillin Sod/Tazobactam Sod (Zosyn) 4.5 gm in 120 mls @ 240 mls/hr IV NOW ONE Stop: 10/21/18 15:30 Last Admin: 10/21/18 15:50 Dose: 240 mls/hr Documented by: [id number] Sodium Chloride (Nss 1000ml) 1,000 mls @ 999 mls/hr IV .Q1H1M ONE Stop: 10/21/18 16:26 Last Admin: 10/21/18 15:49 Dose: 999 mls/hr Documented by: [id number] Ondansetron HCl (Zofran) 4 mg IV NOW STA Stop: 10/21/18 13:56 Last Admin: 10/21/18 14:13 Dose: 4 mg Documented by: [id number] Medical Decision Making Differential Diagnosis Differential diagnosis: Etiologies such as vasovagal event, infection, hypoglycemia, electrolyte abnormalities, cardiac sources, intracerebral event, toxicologic, neurologic, as well as others were entertained. Medical Records Attestation: I reviewed the patient's medical records. Home Medications Current Medication List: was personally reviewed by me Laboratory Data Attestation: I reviewed the patient's lab results. Result diagrams: 10/21/18 14:00 10/21/18 14:24 Lab Results 10/21/18 10/21/18 10/21/18 Range/Units 14:00 14:00 14:00 WBC 21.05 H (4.8-10.8) K/uL RBC 4.76 (4.2-5.4) M/uL Hgb 13.5 (12.0-16.0) g/dL Hct 41.2 (37-47) % MCV 86.6 (80-100) fL MCH 28.4 (25-34) pg MCHC 32.8 (32-36) g/dL RDW Std Deviation 51.6 H (36.4-46.3) fL RDW Coeff of Myra 16.3 H (11.5-14.5) % Plt Count 495 H (130-400) K/uL MPV 11.1 H (7.4-10.4) fL Immature Gran % (Auto) 0.3 % Neut % (Auto) 86.5 % Lymph % (Auto) 7.5 % Yates % (Auto) 5.2 % Eos % (Auto) 0.3 % Baso % (Auto) 0.2 % Immature Gran # (Auto) 0.07 H (0.00-0.02) K/uL Neut # (Auto) 18.21 H (1.4-6.5) K/uL Lymph # (Auto) 1.57 (1.2-3.4) K/uL Yates # (Auto) 1.09 H (0.11-0.59) K/uL Eos # (Auto) 0.06 (0-0.5) K/uL Baso # (Auto) 0.05 (0-0.2) K/uL ESR 66 H (0-21) mm/hr PT 10.9 (9.0-12.0) Seconds INR 1.1 (0.9-1.1) APTT 22.5 (21.0-31.0) Seconds PTT Ratio 0.8 VBG pH (7.36-7.41) VBG pCO2 (38-50) mmHg VBG pO2 mmHg VBG HCO3 mmol/L VBG O2 Saturation % VBG Base Excess mEq/L Barometric Pressure mm/Hg Sodium (136-145) mmol/L Potassium (3.5-5.1) mmol/L Chloride (98-107) mmol/L Carbon Dioxide (21-32) mmol/L Anion Gap (3-11) BUN (7-18) mg/dl Creatinine (0.6-1.2) mg/dl Est Cr Clr Drug Dosing ml/min Est GFR ( Amer) Est GFR (Non-Af Amer) BUN/Creatinine Ratio (10-20) Glucose (70-99) mg/dl POC Lactic Acid Sebas (0.90-1.70) mmol/L Calcium (8.5-10.1) mg/dl Magnesium (1.8-2.4) mg/dl Total Bilirubin (0.2-1) mg/dl AST (15-37) U/L ALT (12-78) U/L Alkaline Phosphatase (45-117) U/L Troponin I (0-0.045) ng/ml C-Reactive Protein (0-0.29) mg/dl Total Protein (6.4-8.2) gm/dl Albumin (3.4-5.0) gm/dl Globulin (2.5-4.0) gm/dl Albumin/Globulin Ratio (0.9-2) Procalcitonin (0-0.5) ng/ml Urine Color Urine Appearance (Clear) Urine pH (4.5-7.5) Ur Specific [place] (1.000-1.030) Urine Protein (Negative) Urine Glucose (UA) (Negative) Urine Ketones (Negative) Urine Blood (Negative) Urine Nitrite (Negative) Urine Bilirubin (Negative) Urine Urobilinogen (Negative) Ur Leukocyte Esterase (Negative) Urine WBC (Auto) (0-5) /hpf Urine RBC (Auto) (0-4) /hpf U Hyaline Cast (Auto) (0-5) /lpf U Epithel Cells (Auto) (0-5) /lpf Urine Bacteria (Auto) (Negative) Ur Renal Epithelial Cell (0-5) /lpf 10/21/18 10/21/18 10/21/18 Range/Units 14:00 14:00 14:12 WBC (4.8-10.8) K/uL RBC (4.2-5.4) M/uL Hgb (12.0-16.0) g/dL Hct (37-47) % MCV (80-100) fL MCH (25-34) pg MCHC (32-36) g/dL RDW Std Deviation (36.4-46.3) fL RDW Coeff of Myra (11.5-14.5) % Plt Count (130-400) K/uL MPV (7.4-10.4) fL Immature Gran % (Auto) % Neut % (Auto) % Lymph % (Auto) % Yates % (Auto) % Eos % (Auto) % Baso % (Auto) % Immature Gran # (Auto) (0.00-0.02) K/uL Neut # (Auto) (1.4-6.5) K/uL Lymph # (Auto) (1.2-3.4) K/uL Yates # (Auto) (0.11-0.59) K/uL Eos # (Auto) (0-0.5) K/uL Baso # (Auto) (0-0.2) K/uL ESR (0-21) mm/hr PT (9.0-12.0) Seconds INR (0.9-1.1) APTT (21.0-31.0) Seconds PTT Ratio VBG pH (7.36-7.41) VBG pCO2 (38-50) mmHg VBG pO2 mmHg VBG HCO3 mmol/L VBG O2 Saturation % VBG Base Excess mEq/L Barometric Pressure mm/Hg Sodium 142 (136-145) mmol/L Potassium (3.5-5.1) mmol/L Chloride 109 H (98-107) mmol/L Carbon Dioxide 24 (21-32) mmol/L Anion Gap 9.0 (3-11) BUN 10 (7-18) mg/dl Creatinine 1.00 (0.6-1.2) mg/dl Est Cr Clr Drug Dosing 45.3 ml/min Est GFR ( Amer) 64.7 Est GFR (Non-Af Amer) 55.8 BUN/Creatinine Ratio 10.4 (10-20) Glucose 138 H (70-99) mg/dl POC Lactic Acid Sebas 2.28 H (0.90-1.70) mmol/L Calcium 8.5 (8.5-10.1) mg/dl Magnesium (1.8-2.4) mg/dl Total Bilirubin 0.6 (0.2-1) mg/dl AST (15-37) U/L ALT 42 (12-78) U/L Alkaline Phosphatase 397 H (45-117) U/L Troponin I 0.033 (0-0.045) ng/ml C-Reactive Protein 0.79 H (0-0.29) mg/dl Total Protein 7.3 (6.4-8.2) gm/dl Albumin 3.0 L (3.4-5.0) gm/dl Globulin 4.3 H (2.5-4.0) gm/dl Albumin/Globulin Ratio 0.7 L (0.9-2) Procalcitonin 0.11 (0-0.5) ng/ml Urine Color Urine Appearance (Clear) Urine pH (4.5-7.5) Ur Specific [place] (1.000-1.030) Urine Protein (Negative) Urine Glucose (UA) (Negative) Urine Ketones (Negative) Urine Blood (Negative) Urine Nitrite (Negative) Urine Bilirubin (Negative) Urine Urobilinogen (Negative) Ur Leukocyte Esterase (Negative) Urine WBC (Auto) (0-5) /hpf Urine RBC (Auto) (0-4) /hpf U Hyaline Cast (Auto) (0-5) /lpf U Epithel Cells (Auto) (0-5) /lpf Urine Bacteria (Auto) (Negative) Ur Renal Epithelial Cell (0-5) /lpf 10/21/18 10/21/18 10/21/18 Range/Units 14:20 14:24 15:44 WBC (4.8-10.8) K/uL RBC (4.2-5.4) M/uL Hgb (12.0-16.0) g/dL Hct (37-47) % MCV (80-100) fL MCH (25-34) pg MCHC (32-36) g/dL RDW Std Deviation (36.4-46.3) fL RDW Coeff of Myra (11.5-14.5) % Plt Count (130-400) K/uL MPV (7.4-10.4) fL Immature Gran % (Auto) % Neut % (Auto) % Lymph % (Auto) % Yates % (Auto) % Eos % (Auto) % Baso % (Auto) % Immature Gran # (Auto) (0.00-0.02) K/uL Neut # (Auto) (1.4-6.5) K/uL Lymph # (Auto) (1.2-3.4) K/uL Yates # (Auto) (0.11-0.59) K/uL Eos # (Auto) (0-0.5) K/uL Baso # (Auto) (0-0.2) K/uL ESR (0-21) mm/hr PT (9.0-12.0) Seconds INR (0.9-1.1) APTT (21.0-31.0) Seconds PTT Ratio VBG pH 7.32 L (7.36-7.41) VBG pCO2 52 H (38-50) mmHg VBG pO2 28 mmHg VBG HCO3 26 mmol/L VBG O2 Saturation < 60.0 % VBG Base Excess -0.7 mEq/L Barometric Pressure 737.3 mm/Hg Sodium (136-145) mmol/L Potassium 3.6 (3.5-5.1) mmol/L Chloride (98-107) mmol/L Carbon Dioxide (21-32) mmol/L Anion Gap (3-11) BUN (7-18) mg/dl Creatinine (0.6-1.2) mg/dl Est Cr Clr Drug Dosing ml/min Est GFR ( Amer) Est GFR (Non-Af Amer) BUN/Creatinine Ratio (10-20) Glucose (70-99) mg/dl POC Lactic Acid Sebas (0.90-1.70) mmol/L Calcium (8.5-10.1) mg/dl Magnesium 2.3 (1.8-2.4) mg/dl Total Bilirubin (0.2-1) mg/dl AST 72 H (15-37) U/L ALT (12-78) U/L Alkaline Phosphatase (45-117) U/L Troponin I (0-0.045) ng/ml C-Reactive Protein (0-0.29) mg/dl Total Protein (6.4-8.2) gm/dl Albumin (3.4-5.0) gm/dl Globulin (2.5-4.0) gm/dl Albumin/Globulin Ratio (0.9-2) Procalcitonin (0-0.5) ng/ml Urine Color Yellow Urine Appearance Clear (Clear) Urine pH 5.5 (4.5-7.5) Ur Specific [place] 1.014 (1.000-1.030) Urine Protein Negative (Negative) Urine Glucose (UA) Negative (Negative) Urine Ketones Negative (Negative) Urine Blood Trace H (Negative) Urine Nitrite Negative (Negative) Urine Bilirubin Negative (Negative) Urine Urobilinogen Negative (Negative) Ur Leukocyte Esterase 2+ H (Negative) Urine WBC (Auto) 10-30 H (0-5) /hpf Urine RBC (Auto) 0-4 (0-4) /hpf U Hyaline Cast (Auto) 1-5 (0-5) /lpf U Epithel Cells (Auto) >30 H (0-5) /lpf Urine Bacteria (Auto) 4+ H (Negative) Ur Renal Epithelial Cell 0-5 (0-5) /lpf Imaging Data Radiologist's Impression: Radiology results as stated below per my review and the radiologist's interpretation: XR chest 1V portable CLINICAL HISTORY: Sepsis COMPARISON STUDY: Chest radiograph October 09, 2018. FINDINGS: There is no pneumothorax or pleural effusion. Linear left lower lung opacity favors atelectasis or scarring. There is no evidence for pneumonia or pulmonary edema. Cardiomediastinal silhouette is stable. IMPRESSION: No acute cardiopulmonary findings. Electronically signed by: Pierre El M.D. 10/21/2018 2:[address] angio chest PE protocol, CT abd pelvis IV con only HISTORY: 73 years-old Female with PE. Acute shortness of breath with acute generalized abdominal pain TECHNIQUE: Multiple CTA images of the chest were obtained after the intravenous administration of 118 ml Optiray 320. Coronal and sagittal MIPS were obtained from the axial data set and were submitted for review. All measurements were obtained according to NASCET criteria. Additionally, CT abdomen and pelvis with IV contrast only was also obtained. A dose lowering technique was utilized a dhering to the principles of ALARA. COMPARISON: CT pelvis 06/26/2018, CT abdomen and pelvis 04/09/2018, chest CT 06/14/2017. FINDINGS: CTA: Heart is mildly enlarged. No pericardial effusion. Mild fusiform dilation of the ascending thoracic aorta, 3.9 x 4.1 cm. No dissection. Mixed plaque of the tho racic aortic arch with patency of the imaged great vessels. Dilation of the main pulmonary artery suggestive of pulmonary arterial hypertension. Artifact from positioning of the patient's upper extremities limits the exam. No focal filling defects within the pulmonary arterial tree to suggest pulmonary thromboembolic disease. CT CHEST: No focal thyroid nodule or adenopathy by CT size criteria. No pneumothorax or pleural effusion. Mild dependent subsegmental bibasilar atelectasis. Mild bilateral bronchial wall thickening. Unchanged 4 mm subpleural solid pulmonary nodule of the right lower lobe on image 88 series 8. Subpleural 7 mm groundglass nodule of the right lower lobe is also unchanged. No new or enlarging pulmonary nodules identified. Central airways appear patent. Soft tissues of the chest are unremarkable. Degenerative changes of the shoulders and spine. No new lytic or sclerotic bone lesions. Unchanged ill-defined 6 mm sclerotic focus about the right aspect of the T8 vertebral body. CT ABDOMEN/PELVIS: No pneumatosis or pneumoperitoneum. Limited exam secondary to positioning of the patient's upper extremities. Spleen and adrenal glands are unremarkable. Moderate generalized atrophy of the pancreas. Cholecystectomy. Moderate intrahepatic and extra hepatic biliary ductal dilation appears unchanged and may be on a postsurgical basis. Multifocal metastatic lesions are again seen about the liver, largest lesion within the right hepatic lobe measures 10.7 x 6.6 cm which previously measured up to approximately 8.8 x 6.0 cm on study from 04/09/2018. A 6.0 cm lesion of the right hepatic lobe previously measured 4.5 cm. Kidneys are unremarkable. Mild urothelial thickening of the right renal pelvis, collecting system and proximal right ureter. Mild left-sided pelviectasis. No obstructing renal calculi or lesion. Minimal urinary bladder wall thickening. Hysterectomy. Multiple phleboliths of the pelvis. No adnexal mass lesions. Calcified plaque of the abdominal aorta without aneurysm. No bowel obstruction. There is mild circumferential wall thickening of the rectum and sigmoid colon with equivocal additional wall thickening about the transverse and descending colon. Multiple fluid-filled loops of small bowel are noted. Terminal ileum is unremarkable. Mural fibrofatty changes of the cecum. Appendix is not diagnostically visualized. Calcifications are seen adjacent to a loop of bowel in the right midabdomen on image 193 series 10. Spiculated soft tissue mass of the mesentery within the right midabdomen now measures 2.3 x 4.4 cm, previously 2.0 x 2.9 cm. Multiple soft tissue nodules about the gluteal distributions are suggestive of injection granulomata, unchanged. Degenerative changes of the spine, pelvis and hips. Severe degenerative changes of the femo ral acetabular joints with prominent subcortical cystic changes. No new suspicious lytic or blastic bony lesions. IMPRESSION: 1. No evidence of pulmonary thromboembolic disease. 2. No focal airspace consolidation, adenopathy or pleural effusion. 3. No bowel obstruction or pneumoperitoneum. 4. Wall thickening of the distal colon and rectum is suggestive of a nonspecific proctocolitis. Fluid-filled loops of bowel suggests associated diarrheal illness. 5. Progressive hepatic metastatic disease with increased size of the neoplastic spiculated mesenteric lesion of the right midabdomen. 6. Mild urothelial thickening about the right renal pelvis and collecting system. Correlate clinically to exclude infectious etiology. 7. Additional findings as above. The above report was generated using voice recognition software. It may contain grammatical, syntax or spelling errors. Electronically signed by: Apollo Dominguez M.D. 10/21/2018 3:[address] head/brain wo con CLINICAL HISTORY: 73 years-old Female with syncope. Acute syncope with altered mental status TECHNIQUE: Multiple axial CT images of the head were obtained without contrast. A dose lowering technique was utilized adhering to the principles of ALARA. CT DOSE: 1530.37 mGy.cm COMPARISON: Head CT 02/10/2016 FINDINGS: Motion degraded exam. No acute intracranial hemorrhage, midline shift, intracranial mass, hydrocephalus, territorial ischemia or abnormal extra-axial collection. Age-related involutional changes. Patchy white matter hypodensities suggest chronic microvascular ischemic disease. Lipoma incidentally noted within the posterior horn right lateral ventricle. The calvarium is intact. Mild mucosal thickening of the ethmoid sinuses. Mastoid air cells and middle ear cavities are clear. IMPRESSION: No acute intracranial abnormality. The above report was generated using voice recognition software. It may contain grammatical, syntax or spelling errors. Electronically signed by: Apollo Dominguez M.D. 10/21/2018 3:21 PM ECG Data Attestation: I personally reviewed and interpreted this ECG as follows: Indication: syncope Rate (beats per minute): 94 Rhythm: normal sinus Findings: + ST depression (Diffuse) and + T-wave inversion; no PAC, no PVC and no ectopy Comparison ECG Date: from (10/09/2018) Change: no significant change Blood Pressure Blood Pressure Findings: Normal blood pressure MDM Narrative The patient is a 73-year-old female who presented to the emergency department for multiple syncopal episodes. The patient had multiple syncopal episodes while she was trying to move her bowels. She is been having bowel problems recently and has a history of metastatic carcinoid. The patient was placed immediately into room A1 because of persistent hypotension. She was very pale appearing and appeared to be in significant distress. She was resuscitated using IV fluids and was also given IV antibiotics for presumed sepsis. Her white blood cell count was elevated. She appears to have signs of urinary tract infection but also may have an inflammatory process in her bowel. The patient was reevaluated multiple times. On subsequent reevaluation she was feeling much better. I discussed the patient's laboratory and radiographic studies with her including her CAT scan reports. Stool was sent for C. difficile testing. Because of the patient's presenting symptoms and laboratory findings I did discuss her case with the on-call [facility] hospitalist group. They have agreed to evaluate the patient in the emergency department for further management and disposition. The patient was significantly improved. Impression & Plan Syncope, Hypotension, Urinary tract infection, Proctocolitis, Metastatic carcinoid tumor Critical Care Time Critical Care Time: Yes Total Critical Care Time: 40 I have personally spent 40 minutes of critical care time in the direct management of this patient. This includes bedside care, interpretation of diagnostic studies, and testing, discussion with consultants, patient, and family members, and other required patient management activities. This 40 minutes is in excess of all separately billable procedures. Discharge Plan Visit Data Chief Complaint: Syncope (Near Syncope) ED Provider: Cristobal Magallanes Discharge Problem: Syncope, Hypotension, Urinary tract infection, Proctocolitis, Metastatic carcinoid tumor Patient Disposition: Being Evaluated by Hospitalist Forms Stand Alone Forms: My [facility] Prescriptions Prescriptions: No Action metoprolol succinate 25 mg tablet extended release 24 hr 25 mg PO QPM RF: 0 cholecalciferol (vitamin D3) [Vitamin D3] 2,000 unit Capsule 2,000 units PO QAM RF: 0 Xarelto 20 mg tablet 20 mg PO HS RF: 0 tamsulosin 0.4 mg capsule 0.4 mg PO HS RF: 0 albuterol sulfate 90 mcg/actuation aerosol powdr breath activated 2 puffs INH Q6H PRN (Reason: shortness of breath or wheezing) Qty: 1 RF: 1 docusate sodium 100 mg Capsule 100 mg PO DAILY RF: 0 Referrals Referrals: Kerri Schulz PA-C [Primary Care Provider] - Discharge Problem: Syncope Qualifiers: Syncope type: unspecified Qualified Code(s): R55 - Syncope and collapse Hypotension Qualifiers: Hypotension type: unspecified hypotension type Qualified Code(s): I95.9 - Hypotension, unspecified Urinary tract infection Qualifiers: Urinary tract infection type: site unspecified Hematuria presence: without hematuria Qualified Code(s): N39.0 - Urinary tract infection, site not specified The scribe's documentation has been prepared under my direction and personally reviewed by me in its entirety. I confirm that the note above accurately reflects all work, treatment, procedures, and medical decision making performed by me.
[2018-10-21 14:22] LABS: Basophils # (auto) 0.05 K/uL (0-0.2); Basophils % (auto) 0.2 %; Eosinophils # (auto) 0.06 K/uL (0-0.5); Eosinophils % (auto) 0.3 %; Hematocrit (blood only) 41.2 % (37-47); Hemoglobin 13.5 g/dL (12.0-16.0); Immature Granulocytes # (auto) 0.07 K/uL (0.00-0.02); Immature Granulocytes % (auto) 0.3 %; Lymphocytes # (auto) 1.57 K/uL (1.2-3.4); Lymphocytes % (auto) 7.5 %; Mean Corpuscular Hemoglobin 28.4 pg (25-34); Mean Corpuscular Hgb Conc 32.8 g/dL (32-36); Mean Corpuscular Volume 86.6 fL (80-100); Mean Platelet Volume 11.1 fL (7.4-10.4); Monocytes # (auto) 1.09 K/uL (0.11-0.59); Monocytes % (auto) 5.2 %; Neutrophils # (auto) 18.21 K/uL (1.4-6.5); Neutrophils % (auto) 86.5 %; Platelet Count 495 K/uL (130-400); RDW Coefficient of Variation 16.3 % (11.5-14.5); RDW Standard Deviation 51.6 fL (36.4-46.3); Red Blood Count 4.76 M/uL (4.2-5.4); White Blood Count 21.05 K/uL (4.8-10.8)
[2018-10-21 14:32] LABS: INR 1.1 (0.9-1.1); Partial Thromboplastin Ratio 0.8; Partial Thromboplastin Time 22.5 Seconds (21.0-31.0); Prothrombin Time 10.9 Seconds (9.0-12.0)
[2018-10-21 14:35] LABS: Base Excess VBG -0.7 mEq/L; HCO3 VBG 26 mmol/L; PCO2 VBG 52 mmHg (38-50); PO2 VBG 28 mmHg; pH VBG 7.32 (7.36-7.41)
[2018-10-21 14:38] LABS: Oxygen Saturation VBG < 60.0 %
--- NOTE | 2018-10-21 14:40 | XRay Report ---
XR chest 1V portable CLINICAL HISTORY: Sepsis COMPARISON STUDY: Chest radiograph October 09, 2018. FINDINGS: There is no pneumothorax or pleural effusion. Linear left lower lung opacity favors atelect asis or scarring. There is no evidence for pneumonia or pulmonary edema. Cardiomediastinal silhouette is stable. IMPRESSION: No acute cardiopulmonary findings. Electronically signed by: Pierre El M.D. 10/21/2018 2:38 PM
[2018-10-21 14:52] LABS: Albumin Globulin Ratio 0.7 (0.9-2); BUN Creatinine Ratio 10.4 (10-20); Bilirubin,Total 0.6 mg/dl (0.2-1); C Reactive Protein 0.79 mg/dl (0-0.29); Calcium 8.5 mg/dl (8.5-10.1); Creatinine Clr Calc Pharmacy 45.3 ml/min; Est GFR (African American) 64.7; Est GFR (Non-African American) 55.8; Globulin 4.3 gm/dl (2.5-4.0); Total Protein 7.3 gm/dl (6.4-8.2); Troponin I 0.033 ng/ml (0-0.045)
[2018-10-21 14:59] LABS: Potassium 3.6 mmol/L (3.5-5.1)
[2018-10-21] MEDS ORDERED: PIPERACILLIN/TAZOBACTAM 4.5 GM/120 ML BAG IV ONE (15:01)
[2018-10-21] MEDS ORDERED: PIPERACILL/TAZOBAC CONSULT ACTIVE PRN ×2 (15:01→18:42)
[2018-10-21 15:04] LABS: Magnesium 2.3 mg/dl (1.8-2.4)
[2018-10-21] MEDS ORDERED: OPTIRAY 320 125ml IV PRN (15:19)
--- NOTE | 2018-10-21 15:24 | CT Scan Report ---
CT head/brain wo con CLINICAL HISTORY: 73 years-old Female with syncope. Acute syncope with altered mental status TECHNIQUE: Multiple axial CT images of the head were obtained without contrast. A dose lowering tech nique was utilized adhering to the principles of ALARA. CT DOSE: 1530.37 mGy.cm COMPARISON: Head CT 02/10/2016 FINDINGS: Motion degraded exam. No acute intracranial hemorrhage, midline shift, intracranial mass, hydrocephal us, territorial ischemia or abnormal extra-axial collection. Age-related involutional changes. Patchy white matter hypodensities suggest chronic microvascular ischemic disease. Lipoma incidentally noted within the posterior horn right lateral ventricle. The calvarium is intact. Mild mucosal thickening of the ethmoid sinuses. Mastoid air cells and middl e ear cavities are clear. IMPRESSION: No acute intracranial abnormality. The above report was generated using voice recognition software. It may contain grammatical, syntax o r spelling errors. Electronically signed by: Apollo Dominguez M.D. 10/21/2018 3:21 PM
--- NOTE | 2018-10-21 15:50 | CT Scan Report ---
CT angio chest PE protocol, CT abd pelvis IV con only HISTORY: 73 years-old Female with PE. Acute shortness of breath with acute generalized abdominal pa in TECHNIQUE: Multiple CTA images of the chest were obtained after the intravenous administration of 118 ml Optiray 320. Coronal and sagittal MIPS were obtained from the axial data set and were submitted for review. All measurements were obtained according to NASCET criteria. Additionally, CT abdomen an d pelvis with IV contrast only was also obtained. A dose lowering technique was utilized adhering to the principles of ALARA. COMPARISON: CT pelvis 06/26/2018, CT abdomen and pelvis 04/09/2018, chest CT 06/14/2017. FINDINGS: CTA: Heart is mildly enlarged. No pericardial effusion. Mild fusiform dilation of the ascending thoracic a thomas, 3.9 x 4.1 cm. No dissection. Mixed plaque of the thoracic aortic arch with patency of the image d great vessels. Dilation of the main pulmonary artery suggestive of pulmonary arterial hypertension. Artifact from positioning of the patient's upper extremities limits the exam. No focal filling defec ts within the pulmonary arterial tree to suggest pulmonary thromboembolic disease. CT CHEST: No focal thyroid nodule or adenopathy by CT size criteria. No pneumothorax or pleural effusion. Mild dependent subsegmental bibasilar atelectasis. Mild bilateral bronchial wall thickening. Unchanged 4 m m subpleural solid pulmonary nodule of the right lower lobe on image 88 series 8. Subpleural 7 mm diana undglass nodule of the right lower lobe is also unchanged. No new or enlarging pulmonary nodules iden tified. Central airways appear patent. Soft tissues of the chest are unremarkable. Degenerative miller es of the shoulders and spine. No new lytic or sclerotic bone lesions. Unchanged ill-defined 6 mm scl erotic focus about the right aspect of the T8 vertebral body. CT ABDOMEN/PELVIS: No pneumatosis or pneumoperitoneum. Limited exam secondary to positioning of the patient's upper extr emities. Spleen and adrenal glands are unremarkable. Moderate generalized atrophy of the pancreas. Ch olecystectomy. Moderate intrahepatic and extra hepatic biliary ductal dilation appears unchanged and may be on a postsurgical basis. Multifocal metastatic lesions are again seen about the liver, largest lesion within the right hepatic lobe measures 10.7 x 6.6 cm which previously measured up to approxim ately 8.8 x 6.0 cm on study from 04/09/2018. A 6.0 cm lesion of the right hepatic lobe previously vazquez ured 4.5 cm. Kidneys are unremarkable. Mild urothelial thickening of the right renal pelvis, collecti ng system and proximal right ureter. Mild left-sided pelviectasis. No obstructing renal calculi or le katia. Minimal urinary bladder wall thickening. Hysterectomy. Multiple phleboliths of the pelvis. No a dnexal mass lesions. Calcified plaque of the abdominal aorta without aneurysm. No bowel obstruction. There is mild circumferential wall thickening of the rectum and sigmoid colon w ith equivocal additional wall thickening about the transverse and descending colon. Multiple fluid-fi lled loops of small bowel are noted. Terminal ileum is unremarkable. Mural fibrofatty changes of the cecum. Appendix is not diagnostically visualized. Calcifications are seen adjacent to a loop of bowel in the right midabdomen on image 193 series 10. Spiculated soft tissue mass of the mesentery within the right midabdomen now measures 2.3 x 4.4 cm, previously 2.0 x 2.9 cm. Multiple soft tissue nodules about the gluteal distributions are suggestive of injection granulomata, unchanged. Degenerative tsering nges of the spine, pelvis and hips. Severe degenerative changes of the femoral acetabular joints with prominent subcortical cystic changes. No new suspicious lytic or blastic bony lesions. IMPRESSION: 1. No evidence of pulmonary thromboembolic disease. 2. No focal airspace consolidation, adenopathy or pleural effusion. 3. No bowel obstruction or pneumoperitoneum. 4. Wall thickening of the distal colon and rectum is suggestive of a nonspecific proctocolitis. Fluid -filled loops of bowel suggests associated diarrheal illness. 5. Progressive hepatic metastatic disease with increased size of the neoplastic spiculated mesenteric lesion of the right midabdomen. 6. Mild urothelial thickening about the right renal pelvis and collecting system. Correlate clinicall y to exclude infectious etiology. 7. Additional findings as above. The above report was generated using voice recognition software. It may contain grammatical, syntax o r spelling errors. Electronically signed by: Apollo Dominguez M.D. 10/21/2018 3:48 PM
[2018-10-21 15:58] LABS: Appearance Urine Clear (Clear); Bilirubin Urine Negative (Negative); Blood Urine Trace (Negative); Color Urine Yellow; Glucose Urine UA Negative (Negative); Ketones Urine Negative (Negative); Leukocyte Esterase Urine 2+ (Negative); Nitrite Urine Negative (Negative); Protein Urine Negative (Negative); Specific Gravity Urine 1.014 (1.000-1.030); Urobilinogen Urine Negative (Negative); pH Urine 5.5 (4.5-7.5)
[2018-10-21 16:08] LABS: Bacteria Urine Automated 4+ (Negative); Epithelial Cell Urine Auto >30 /lpf (0-5); RBC Urine Automated 0-4 /hpf (0-4); Renal Epithelial Cells Urine 0-5 /lpf (0-5)
[2018-10-21] MEDS ORDERED: MoRPHine SULFATE 4 MG/ML 1 ML CARP\\VIAL IV STA (16:15)
--- NOTE | 2018-10-21 17:14 | History & Physical Report ---
Date of Service October 21, 2018 Assessment & Plan (1) UTI (urinary tract infection): (2) Proctocolitis: (3) Leukocytosis: (4) Syncope, vasovagal: (5) Atrial fibrillation: (6) Hyperlipidemia: (7) Hypertension: (8) Asthma: (9) Osteoarthritis: (10) Metastatic carcinoid tumor: (11) Nausea vomiting and diarrhea: (12) Liver cancer: IV Zosyn, Clear diet, inpatient Tele, Continue appropriate OP meds, IVFs, PT eval, Similar syncopal episodes in the past, full code, Panculture, Nebs, CDT pending ROS-No Headache, No Visual Changes, + Nausea, + Dry Heaves, No Fever, + Chills, No Neck Pain or Stiffness, No Chest Pain, No Palpitations, No SOB, No ROD, No Cough, No Sputum, No Wheezing, No Abdominal Pain, +Non Bloody Diarrhea, No Hematemesis, No Hemoptysis, No Unexpected Weight Loss, No Flank pain, No Melena, No Hematochezia, No Frequency, No Urgency, +Burning, No Hematuria, No Rashes, No Diaphoresis. Appetite is Normal, Notes syncope Physical Exam Gen-AAO x 3, NAD, Afebrile, flushed Head-NCAT, EOMI, PERRLA, Anicteric Sclera, No Posterior Pharyngeal Erythema Neck-Supple, No JVD, No Thyromegaly, No Masses, No LAD, No Bruits Lungs-Clear to Auscultation Bilaterally, No Rales, No Rhonchi, No Wheezing, No Crepitus Chest-No S4, +S1, +S2, No S3, No Murmurs, No Rubs, No Gallops, No Ectopy Abdomen-Soft, Bowel Sounds Present, Non Tender, Non Distended, No Hepatomegaly, No Splenomegaly, No Palpable Masses, No Rebound, No Rigidity, No Guarding Musculoskeletal-Full Range of Motion Bilaterally, No CVAT Extremities-No Cyanosis, No Clubbing, No Edema Nuero-Cranial Nerves II-XII grossly intact, Motor WNL, DTRs WNL, Strength WNL, Non Focal Psych-Normal Mood History of Present Illness 73 year old female with PMH as below reports a syncopal episode that occurred this morning while the patient was having a bowel movement. According to Dr Magallanes EMS reports that the patients eyes rolled back into her head during the episode but denies that the patient had any tonic-clonic episodes. EMS notes that the episode lasted for around 45 seconds. EMS denies that the patient has any altered mental status. EMS notes that the patient was 70-80 systolic during the trip to the ED but notes that her BP graeme to 112/81 upon arrival. EMS states that they were unable to draw any blood en route. EMS reports that the patient is feeling nauseous but denies that she has vomited. EMS notes that the patient has been intermittently flushed in her face and that she felt slightly clammy. EMS states that the patient was found to have liver cancer recently and is scheduled to start radiation treatment with [facility] soon. She notes that her lips felt numb before her symptoms began. She states that she had some abdominal pain and that she went to have a bowel movement. She notes that her bowel movement this morning was not abnormal. She denies falling during the episode. She states that she currently feels like she has excess gas in her bowels and notes that she feels like she needs to have a bowel movement. She denies any chest pain, neck pain or abdominal pain currently. She denies any recent black or bloody stools. The patient reports that she has carcinoids on her bowels as well as her liver. She denies receiving any chemotherapy or radiation treatment yet. She notes that she is taking Xarelto for a history of atrial fibrillation. She denies any falls or travel recently. She denies any history of an [place]. The patient's family states that the patient had 4 episodes of syncope this morning while she was in the bathroom. Her family reports that the patient was groggy following her first episode and had difficulty speaking. Her family notes that the patient was weak and had difficulty standing on her own. Her family reports that the patient has had similar past episodes that are possibly secondary to hypotensive episodes while straining during a bowel movement. Primary Care Provider: Kerri Schulz Allergies Allergy/AdvReac Type Severity Reaction Status Date / Time nut - unspecified Allergy Severe throat Verified 10/21/18 14:35 swelling aspirin Allergy Intermediate "ASTHMA" Verified 10/21/18 14:35 celecoxib Allergy Intermediate "ASTHMA Verified 10/21/18 14:35 ATTACK" codeine Allergy Intermediate "FACE Verified 10/21/18 14:35 PUFFS UP" morphine Allergy Intermediate "FACE Verified 10/21/18 14:35 PUFFS UP" latex Allergy Mild RASH Verified 10/21/18 14:35 caffeine AdvReac Intermediate HEADACHE Verified 10/21/18 14:35 midazolam AdvReac Intermediate extreme Verified 10/21/18 14:35 anxiety fentanyl AdvReac Mild DELIRIUM Verified 10/21/18 14:35 lorazepam AdvReac Mild ANXIOUS Verified 10/21/18 14:35 OPIOIDS AdvReac Intermediate HALLUCINATIONS Uncoded 10/21/18 14:35 (Fentanyl ok) Home Medications Home Medications Medication Instructions Recorded Confirmed Type cholecalciferol (vitamin D3) 2,000 units PO QAM 04/09/18 10/21/18 History [Vitamin D3] metoprolol succinate 25 mg PO QPM 04/09/18 10/21/18 History rivaroxaban [Xarelto] 20 mg PO HS 04/09/18 10/21/18 History albuterol sulfate 2 puffs INH Q6H PRN #1 ea 08/15/18 10/21/18 Rx tamsulosin 0.4 mg PO HS 10/09/18 10/21/18 History docusate sodium 100 mg PO DAILY 10/21/18 10/21/18 History Past Med/Surg History Medical History Liver cancer (Acute) Hemorrhoids (Chronic) Perirectal abscess (Chronic) Asthma (Chronic) NO INHALER Atrial fibrillation (Chronic) On Xarelto Osteoarthritis (Chronic) Hyperlipidemia (Chronic) BORDERLINE Anal fistula (Chronic) Interstitial cystitis (Chronic) Chronic anticoagulation (Chronic) Coronary vasospasm (Chronic) 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 [facility], Dr. Escalera. Receiving Sandostatin injection monthly. Hypertension (Chronic) Proctocolitis UTI (urinary tract infection) Surgical History History of cardiac cath (Chronic) [facility] 2016; "Normal coronary arteries." History of tooth extraction (Chronic) History of liver biopsy (Chronic) History of dilatation and curettage (Chronic) S/P appendectomy (Chronic) History of tonsillectomy and adenoidectomy (Chronic) S/P cholecystectomy (Chronic) History of hysterectomy (Chronic) Family History Sister Family history of diabetes mellitus Social History Preferred Language: Mohawk Communication Ability: Effective Consumer Advocate Required: No Beliefs That Will Affect Care: None marital status: Current Living Situation: Spouse Feels Safe at Home: Yes Smoking Status: Never smoker Second Hand Exposure: Yes ; Hx Alcohol Use: No Hx Substance Use: No Results & Data Vital Signs (Past 12 Hours) Vital Signs Pulse Resp BP Pulse Ox 10/21/18 16:45 67 24 111/63 92 10/21/18 16:31 71 13 125/67 95 10/21/18 16:25 79 26 H 156/73 H 98 10/21/18 16:00 103 H 16 97 10/21/18 15:45 75 15 145/90 H 95 10/21/18 15:31 108 H 22 145/80 H 97 10/21/18 15:00 86 17 153/95 H 96 10/21/18 14:57 96 10/21/18 14:50 101 H 19 152/96 H 96 10/21/18 14:40 76 19 153/77 H 96 10/21/18 14:36 78 22 164/95 H 97 10/21/18 14:30 78 17 165/85 H 95 10/21/18 14:25 82 24 137/91 95 10/21/18 14:21 82 28 H 144/85 H 97 10/21/18 14:15 84 26 H 139/84 97 10/21/18 14:10 89 23 139/77 98 10/21/18 14:05 89 31 H 112/87 95 10/21/18 14:00 91 H 22 96/77 L 95 10/21/18 13:56 92 H 16 143/86 H 94 Allergies nut - unspecified Allergy (Severe, Verified 10/21/18 14:35) throat swelling aspirin Allergy (Intermediate, Verified 10/21/18 14:35) "ASTHMA" celecoxib Allergy (Intermediate, Verified 10/21/18 14:35) "ASTHMA ATTACK" codeine Allergy (Intermediate, Verified 10/21/18 14:35) "FACE PUFFS UP" morphine Allergy (Intermediate, Verified 10/21/18 14:35) "FACE PUFFS UP" latex Allergy (Mild, Verified 10/21/18 14:35) RASH caffeine Adverse Reaction (Intermediate, Verified 10/21/18 14:35) HEADACHE midazolam Adverse Reaction (Intermediate, Verified 10/21/18 14:35) extreme anxiety fentanyl Adverse Reaction (Mild, Verified 10/21/18 14:35) DELIRIUM lorazepam Adverse Reaction (Mild, Verified 10/21/18 14:35) ANXIOUS OPIOIDS Adverse Reaction (Intermediate, Uncoded 10/21/18 14:35) HALLUCINATIONS (Fentanyl ok) Height/Weight/Isolation Height 5 ft 2 in Weight 68.1 kg Chemistry 10/21/18 10/21/18 14:00 14:24 Sodium 142 Potassium 3.6 Chloride 109 H Carbon Dioxide 24 Anion Gap 9.0 BUN 10 Creatinine 1.00 Glucose 138 H Urinalysis 10/21/18 15:44 Urine Color Yellow Urine Appearance Clear Urine pH 5.5 Ur Specific [place] 1.014 Urine Protein Negative Urine Glucose (UA) Negative Urine Ketones Negative Urine Blood Trace H Urine Nitrite Negative Urine Bilirubin Negative Microbiology 10/21/18 15:44 Urine,Straight Cath Urine Culture - Pending 10/21/18 13:55 Blood Aerobic Blood Culture - Pending 10/21/18 13:55 Blood Anaerobic Blood Culture - Pending 10/21/18 14:00 Blood Aerobic Blood Culture - Pending 10/21/18 14:00 Blood Anaerobic Blood Culture - Pending Code Status & VTE Plan VTE Prophylaxis Plan VTE Prophylaxis will be ordered: Yes
[2018-10-21] MEDS ORDERED: ALBUT/IPRATROP 3MG/0.5MG NEB 3 ML VIAL NEB ONE (18:42)
[2018-10-21] MEDS ORDERED: ALUMINUM/MAGNESIUM SUSP 30 ML UDC PO PRN (18:42)
[2018-10-21] MEDS: SODIUM CHLORIDE 0.9% 1000ML 1,000 ML IV SCH (19:56)
[2018-10-21] MEDS: PIPERACILLIN/TAZOBACTAM 3.375 GM in DEXTROSE 5% 100 ML IV SCH (20:34)
[2018-10-21] MEDS: TAMSULOSIN HCL 0.4 MG CAP PO SCH (20:35)
[2018-10-21] MEDS: RIVAROXABAN 20 MG TAB PO SCH (20:35)
[2018-10-21] MEDS: METOPROLOL SUCC 25MG EXT REL TAB PO SCH (20:35)
[2018-10-22] MEDS: PIPERACILLIN/TAZOBACTAM 3.375 GM in DEXTROSE 5% 100 ML IV SCH (03:41)
[2018-10-22] MEDS: SODIUM CHLORIDE 0.9% 1000ML 1,000 ML IV SCH ×2 (04:46→15:53)
[2018-10-22] MEDS: ONDANSETRON INJ 2 MG/ML 2 ML VIAL IV PRN ×2 (06:18→11:11)
[2018-10-22] MEDS: CHOLECALCIFEROL 1,000 UNITS TAB PO SCH (07:39)
[2018-10-22 08:00] LABS: Hematocrit (blood only) 27.9 % (37-47); Hemoglobin 9.1 g/dL (12.0-16.0); Mean Corpuscular Hemoglobin 28.3 pg (25-34); Mean Corpuscular Hgb Conc 32.6 g/dL (32-36); Mean Corpuscular Volume 86.9 fL (80-100); Mean Platelet Volume 10.9 fL (7.4-10.4); Platelet Count 269 K/uL (130-400); RDW Coefficient of Variation 16.5 % (11.5-14.5); RDW Standard Deviation 53.1 fL (36.4-46.3); Red Blood Count 3.21 M/uL (4.2-5.4); White Blood Count 8.75 K/uL (4.8-10.8)
[2018-10-22 08:02] LABS: Albumin Level 2.3 gm/dl (3.4-5.0); BUN Creatinine Ratio 6.9 (10-20); Basophils # (auto) 0.04 K/uL (0-0.2); Basophils % (auto) 0.5 %; Calcium 7.8 mg/dl (8.5-10.1); Eosinophils % (auto) 1.1 %; Est GFR (African American) 73.5; Est GFR (Non-African American) 63.4; Immature Granulocytes # (auto) 0.02 K/uL (0.00-0.02); Immature Granulocytes % (auto) 0.2 %; Lymphocytes # (auto) 1.76 K/uL (1.2-3.4); Lymphocytes % (auto) 20.1 %; Monocytes # (auto) 0.53 K/uL (0.11-0.59); Monocytes % (auto) 6.1 %; Potassium 3.4 mmol/L (3.5-5.1)
[2018-10-22 08:08] LABS: Albumin Globulin Ratio 0.7 (0.9-2); Bilirubin,Total 0.5 mg/dl (0.2-1); Globulin 3.3 gm/dl (2.5-4.0); Total Protein 5.6 gm/dl (6.4-8.2)
--- NOTE | 2018-10-22 10:20 | Hospitalist Progress Note ---
Date of Service October 22, 2018 Assessment & Plan (1) UTI (urinary tract infection): (2) Proctocolitis: (3) Leukocytosis: (4) Syncope, vasovagal: (5) Atrial fibrillation: (6) Hyperlipidemia: (7) Hypertension: (8) Asthma: (9) Osteoarthritis: (10) Metastatic carcinoid tumor: (11) Nausea vomiting and diarrhea: (12) Liver cancer: IV Zosyn, WBCs down to normal, Clear diet, inpatient Tele, Continue appropriate OP meds, hold IVFs, PT eval, Similar syncopal episodes in the past, full code, Panculture, Nebs, CDT negative ROS-No Headache, No Visual Changes, + Nausea, + Dry Heaves, No Fever, + Chills, No Neck Pain or Stiffness, No Chest Pain, No Palpitations, No SOB, No ROD, No Cough, No Sputum, No Wheezing, No Abdominal Pain, +Non Bloody Diarrhea, No Hematemesis, No Hemoptysis, No Unexpected Weight Loss, No Flank pain, No Melena, No Hematochezia, No Frequency, No Urgency, +Burning, No Hematuria, No Rashes, No Diaphoresis. Appetite is Normal, Notes syncope Physical Exam Gen-AAO x 3, NAD, Afebrile, flushed Head-NCAT, EOMI, PERRLA, Anicteric Sclera, No Posterior Pharyngeal Erythema Neck-Supple, No JVD, No Thyromegaly, No Masses, No LAD, No Bruits Lungs-Clear to Auscultation Bilaterally, No Rales, No Rhonchi, No Wheezing, No Crepitus Chest-No S4, +S1, +S2, No S3, No Murmurs, No Rubs, No Gallops, No Ectopy Abdomen-Soft, Bowel Sounds Present, Non Tender, Non Distended, No Hepatomegaly, No Splenomegaly, No Palpable Masses, No Rebound, No Rigidity, No Guarding Musculoskeletal-Full Range of Motion Bilaterally, No CVAT Extremities-No Cyanosis, No Clubbing, No Edema Nuero-Cranial Nerves II-XII grossly intact, Motor WNL, DTRs WNL, Strength WNL, Non Focal Psych-Normal Mood Results & Data Vital Signs (Past 12 Hours) Vital Signs Temp Pulse Pulse Resp BP BP Pulse Ox 10/22/18 07:49 37 C 61 16 129/61 95 10/22/18 04:00 36.9 C 57 L 19 157/77 H 97 10/22/18 00:32 59 L 10/21/18 23:57 36.7 C 58 L 16 132/71 96 Current Diagnoses Malignant neoplasm of liver, not specified as primary or secondary (10/21/18) Secondary carcinoid tumors, unspecified site (10/21/18) Elevated white blood cell count, unspecified (10/21/18) Hyperlipidemia, unspecified (10/21/18) Essential (primary) hypertension (10/21/18) Unspecified atrial fibrillation (10/21/18) Unspecified asthma, uncomplicated (10/21/18) Noninfective gastroenteritis and colitis, unspecified (10/21/18) Unspecified osteoarthritis, unspecified site (10/21/18) Urinary tract infection, site not specified (10/21/18) Nausea with vomiting, unspecified (10/21/18) Diarrhea, unspecified (10/21/18) Syncope and collapse (10/21/18) Allergies nut - unspecified Allergy (Severe, Verified 10/21/18 14:35) throat swelling aspirin Allergy (Intermediate, Verified 10/21/18 14:35) "ASTHMA" celecoxib Allergy (Intermediate, Verified 10/21/18 14:35) "ASTHMA ATTACK" codeine Allergy (Intermediate, Verified 10/21/18 14:35) "FACE PUFFS UP" morphine Allergy (Intermediate, Verified 10/21/18 14:35) "FACE PUFFS UP" latex Allergy (Mild, Verified 10/21/18 14:35) RASH caffeine Adverse Reaction (Intermediate, Verified 10/21/18 14:35) HEADACHE midazolam Adverse Reaction (Intermediate, Verified 10/21/18 14:35) extreme anxiety fentanyl Adverse Reaction (Mild, Verified 10/21/18 14:35) DELIRIUM lorazepam Adverse Reaction (Mild, Verified 10/21/18 14:35) ANXIOUS OPIOIDS Adverse Reaction (Intermediate, Uncoded 10/21/18 14:35) HALLUCINATIONS (Fentanyl ok) Height/Weight/Isolation Height 5 ft 2 in Weight 64.3 kg Chemistry 10/21/18 10/21/18 10/22/18 14:00 14:24 07:15 Sodium 142 144 Potassium 3.6 3.4 L Chloride 109 H 113 H Carbon Dioxide 24 25 Anion Gap 9.0 6.0 BUN 10 6 L Creatinine 1.00 0.90 Glucose 138 H 114 H Urinalysis 10/21/18 15:44 Urine Color Yellow Urine Appearance Clear Urine pH 5.5 Ur Specific [place] 1.014 Urine Protein Negative Urine Glucose (UA) Negative Urine Ketones Negative Urine Blood Trace H Urine Nitrite Negative Urine Bilirubin Negative Microbiology 10/21/18 15:44 Urine,Straight Cath Urine Culture - Preliminary Gram negative bacilli 10/21/18 13:55 Blood Aerobic Blood Culture - Pending 10/21/18 13:55 Blood Anaerobic Blood Culture - Pending 10/21/18 14:00 Blood Aerobic Blood Culture - Pending 10/21/18 14:00 Blood Anaerobic Blood Culture - Pending
[2018-10-22] MEDS ORDERED: DiphenhydrAMINE HCL 50 MG/ML VIAL IV PRN (11:11)
[2018-10-22] MEDS ORDERED: DiphenhydrAMINE HCL 50 MG/ML VIAL ONE (11:16)
[2018-10-22] MEDS: cefTRIAXone SODIUM 1,000 MG in DEXTROSE 5% 50 ML IV SCH (12:20)
[2018-10-22] MEDS: ACETAMINOPHEN 325 MG TAB PO PRN ×2 (12:23→21:18)
[2018-10-22] MEDS: TAMSULOSIN HCL 0.4 MG CAP PO SCH (20:58)
[2018-10-22] MEDS: METOPROLOL SUCC 25MG EXT REL TAB PO SCH (20:59)
[2018-10-22] MEDS: RIVAROXABAN 20 MG TAB PO SCH (21:12)
[2018-10-23] MEDS: SODIUM CHLORIDE 0.9% 1000ML 1,000 ML IV SCH ×3 (01:08→20:41)
[2018-10-23 06:38] LABS: Basophils # (auto) 0.04 K/uL (0-0.2); Basophils % (auto) 0.6 %; Eosinophils # (auto) 0.23 K/uL (0-0.5); Eosinophils % (auto) 3.6 %; Hematocrit (blood only) 27.6 % (37-47); Hemoglobin 8.8 g/dL (12.0-16.0); Immature Granulocytes # (auto) 0.01 K/uL (0.00-0.02); Immature Granulocytes % (auto) 0.2 %; Lymphocytes # (auto) 1.82 K/uL (1.2-3.4); Lymphocytes % (auto) 28.8 %; Mean Corpuscular Hemoglobin 27.8 pg (25-34); Mean Corpuscular Hgb Conc 31.9 g/dL (32-36); Mean Corpuscular Volume 87.1 fL (80-100); Mean Platelet Volume 10.7 fL (7.4-10.4); Monocytes # (auto) 0.47 K/uL (0.11-0.59); Monocytes % (auto) 7.4 %; Neutrophils # (auto) 3.74 K/uL (1.4-6.5); Neutrophils % (auto) 59.4 %; Platelet Count 245 K/uL (130-400); RDW Coefficient of Variation 16.8 % (11.5-14.5); RDW Standard Deviation 53.6 fL (36.4-46.3); Red Blood Count 3.17 M/uL (4.2-5.4); White Blood Count 6.31 K/uL (4.8-10.8)
[2018-10-23 07:12] LABS: BUN Creatinine Ratio 5.5 (10-20); Calcium 7.9 mg/dl (8.5-10.1); Creatinine Clr Calc Pharmacy 56.8 ml/min; Est GFR (African American) 87.4; Est GFR (Non-African American) 75.4; Potassium 3.1 mmol/L (3.5-5.1)
[2018-10-23] MEDS: CHOLECALCIFEROL 1,000 UNITS TAB PO SCH (07:46)
--- NOTE | 2018-10-23 08:03 | Hospitalist Progress Note ---
Date of Service October 23, 2018 Assessment & Plan (1) UTI (urinary tract infection): (2) Proctocolitis: (3) Leukocytosis: (4) Syncope, vasovagal: (5) Atrial fibrillation: (6) Hyperlipidemia: (7) Hypertension: (8) Asthma: (9) Osteoarthritis: (10) Metastatic carcinoid tumor: (11) Nausea vomiting and diarrhea: (12) Liver cancer: Continue IV Zosyn, to see, WBCs down to normal, Clear diet, inpatient Tele, Continue appropriate OP meds, hold IVFs, PT eval, Similar syncopal episodes in the past, full code, +Bacteremia, repeat Cx, Urine Cx Pansensitive Klebsiella, Nebs, CDT negative, ID eval ROS-No Headache, No Visual Changes, + Nausea, + Dry Heaves, No Fever, + Chills, No Neck Pain or Stiffness, No Chest Pain, No Palpitations, No SOB, No ROD, No Cough, No Sputum, No Wheezing, No Abdominal Pain, +Non Bloody Diarrhea, No H ematemesis, No Hemoptysis, No Unexpected Weight Loss, No Flank pain, No Melena, No Hematochezia, No Frequency, No Urgency, +Burning, No Hematuria, No Rashes, No Diaphoresis. Appetite is Normal, Notes syncope, Feels much better than on Admission day Physical Exam Gen-AAO x 3, NAD, Afebrile Head-NCAT, EOMI, PERRLA, Anicteric Sclera, No Posterior Pharyngeal Erythema Neck-Supple, No JVD, No Thyromegaly, No Masses, No LAD, No Bruits Lungs-Clear to Auscultation Bilaterally, No Rales, No Rhonchi, No Wheezing, No Crepitus Chest-No S4, +S1, +S2, No S3, No Murmurs, No Rubs, No Gallops, No Ectopy Abdomen-Soft, Bowel Sounds Present, Non Tender, Non Distended, No Hepatomegaly, No Splenomegaly, No Palpable Masses, No Rebound, No Rigidity, No Guarding Musculoskeletal-Full Range of Motion Bilaterally, No CVAT Extremities-No Cyanosis, No Clubbing, No Edema Nuero-Cranial Nerves II-XII grossly intact, Motor WNL, DTRs WNL, Strength WNL, Non Focal Psych-Normal Mood Results & Data Vital Signs (Past 12 Hours) Vital Signs Temp Pulse Resp BP BP Pulse Ox 10/23/18 07:50 36.9 C 59 L 17 173/84 H 98 10/23/18 04:40 37 C 47 L 20 136/60 94 10/22/18 23:18 36.8 C 48 L 16 113/63 95
--- NOTE | 2018-10-23 08:22 | Urology Consultation ---
Date of Consultation October 23, 2018 Assessment & Plan (1) Urinary tract infection: 73yo F with hx IC, AUR, Liver CA, s/p perianal fistula repair admitted with Klebsiella UTI, prelim +BCx, incomplete emptying PVR ~200cc, no plan for catheterization unless symptoms worsen. Kidney function stable. CT reviewed, no indication for surgical intervention. Continue broad spectrum abx, appreciate recommendations by ID to direct therapy. Pt has existing followup with Dr. Gutierres on 12/14/18 at 3PM at [facility]. We will keep this appt unless patient status changes. We will continue to monitor peripherally while inpatient. Thank you for the consultation and allowing us to participate in the acute care of Ms. Garzon. History of Present Illness Reason for Consultation: UTI Requesting Physician: Dr. Lopez Attending Physician: Tunde Lopez, DO History of Present Illness 73yo F with hx of liver CA with plans to start radiation, s/p perianal fistula/abscess repair in July 2018, with subsequent post op retention, IC admitted through [facility] ED for c/o syncope and weakness. Diagnosed with persistent Klebsiella UTI, leukocytosis. Of note, she presented to [facility] ED fro similar complaints 2 weeks ago, diagnosed with klebsiella UTI at that time, treated with keflex 500mg BID x7d. Last evaluated by our office as outpatient end of august, voiding spontaneously but not perfect. She does require double voiding, urinary frequency q30min. Catheterization to be avoided due to still having some issues with fistula, states it is still draining. Flomax discontinued at this visit. Currently on Rocephin IV, states she is starting to feel slightly better. Incontinence episodes have improved. She was able to void 300cc clear yellow with good stream while I was with her today, with PVR ~200cc. Denies dysuria, suprapubic or flank pain +urgency, frequency [id number]. Hx IC, doing well with IC diet as recommended by Urologist in [place] many years ago. Allergies Allergy/AdvReac Type Severity Reaction Status Date / Time nut - unspecified Allergy Severe throat Verified 10/21/18 14:35 swelling aspirin Allergy Intermediate "ASTHMA" Verified 10/21/18 14:35 celecoxib Allergy Intermediate "ASTHMA Verified 10/21/18 14:35 ATTACK" codeine Allergy Intermediate "FACE Verified 10/21/18 14:35 PUFFS UP" morphine Allergy Intermediate "FACE Verified 10/21/18 14:35 PUFFS UP" latex Allergy Mild RASH Verified 10/21/18 14:35 caffeine AdvReac Intermediate HEADACHE Verified 10/21/18 14:35 midazolam AdvReac Intermediate extreme Verified 10/21/18 14:35 anxiety fentanyl AdvReac Mild DELIRIUM Verified 10/21/18 14:35 lorazepam AdvReac Mild ANXIOUS Verified 10/21/18 14:35 OPIOIDS AdvReac Intermediate HALLUCINATIONS Uncoded 10/21/18 14:35 (Fentanyl ok) Home Medications Home Medications Medication Instructions Recorded Confirmed Type cholecalciferol (vitamin D3) 2,000 units PO QAM 04/09/18 10/21/18 History [Vitamin D3] metoprolol succinate 25 mg PO QPM 04/09/18 10/21/18 History rivaroxaban [Xarelto] 20 mg PO HS 04/09/18 10/21/18 History albuterol sulfate 2 puffs INH Q6H PRN #1 ea 08/15/18 10/21/18 Rx tamsulosin 0.4 mg PO HS 10/09/18 10/21/18 History docusate sodium 100 mg PO DAILY 10/21/18 10/21/18 History Patient History Medical History Liver cancer (Acute) Hemorrhoids (Chronic) Perirectal abscess (Chronic) Asthma (Chronic) NO INHALER Atrial fibrillation (Chronic) On Xarelto Osteoarthritis (Chronic) Hyperlipidemia (Chronic) BORDERLINE Anal fistula (Chronic) Interstitial cystitis (Chronic) Chronic anticoagulation (Chronic) Coronary vasospasm (Chronic) 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 [facility], Dr. Escalera. Receiving Sandostatin injection monthly. 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 Beliefs That Will Affect Care: None marital status: Current Living Situation: Spouse Other Information That Helps Us Care for You: No Feels Safe at Home: Yes Safety Concerns: Feels Safe At This Time Smoking Status: Never smoker Second Hand Exposure: Yes ; Hx Alcohol Use: No Hx Substance Use: No Review of Systems Review of Systems: Constitutional: Denies fever, chills, sweats, malaise Eyes: Denies problem reported ENMT: Denies dizziness Resp: Denies cough, Denies shortness of breath CV: Denies JVD GI: Denies nausea/vomiting : +urgency and frequency; Denies suprapubic or flank pain, dysuria, hematuria MS: Denies swelling, stiffness Integ: Denies rash, erythema Neuro: Denies falls, weakness Psych: Denies behavior change Endo: Denies polyphagia, polydipsia Heme: Denies easy bleeding Physical Exam Constitutional: no acute distress and not ill appearing Eyes: no nystagmus ENMT: Ears: no hearing impairment Neck: trachea midline Respiratory: no respiratory distress and no cough Cardiovascular: Vessels: no JVD Chest (Breasts): Chest: normal inspection of chest Gastrointestinal (Abdomen): Inspection/Auscultation: abdomen not distended and no abdominal edema Percussion/Palpation: abdomen soft; abdomen nontender Musculoskeletal: Head/Neck/Chest: normocephalic and head atraumatic Skin: no rashes, warm and dry Neurologic: awake; not confused and not obtunded Psychiatric: Orientation: alert and oriented x 3 Eye Contact: good eye contact Affect: no depressed affect Genitourinary: some bladder distention and tenderness on palpation, relieved with voiding Lymphatic: no lymphadenopathy and no lymphedema Results & Data Vital Signs (Past 12 Hours) Vital Signs Temp Pulse Resp BP BP Pulse Ox 10/23/18 07:50 36.9 C 59 L 17 173/84 H 98 10/23/18 04:40 37 C 47 L 20 136/60 94 10/22/18 23:18 36.8 C 48 L 16 113/63 95 (1) Urinary tract infection Hematuria presence: without hematuria Urinary tract infection type: site unspecified Qualified Code(s): N39.0 - Urinary tract infection, site not specified
--- NOTE | 2018-10-23 10:01 | Infectious Disease Consult ---
Date of Consultation October 23, 2018 Assessment & Plan (1) UTI (urinary tract infection): continue rocephin for now, repeat cultures pending, suspect gpc is contaminant. clinically improving, would give 7 days total for uti. can change to keflex to complete course. History of Present Illness Attending Physician: Tunde Lopez DO pt admitted after episode of syncope. Infectious workup done, wbc 21 in ER, improved to 6. creat 0.7. 8 UA > 30 ep cells, 10-30 wbc +2 LE, +4 bacteria, culture growing pansensitive K. pneumo. blood culture obtained in Er, now 1/ bottles growing gpc, ID consulted for +blood cultures. CT in ER negative for PE, PNA, liver mets, and thickening of right renal pelvis. afebrile. was iniitally on zosyn, now on CTX. tolerating well. Overall feeling better. does have buring and frequency with urination, urology following. States she is having frequent utis, 2 vaginal births, she does feel that she has complete emptying of her bladder but states she has difficulty initiating urination at home. no cp, sob, garcia, cough, no abd pain, no n/v/d. Allergies Allergy/AdvReac Type Severity Reaction Status Date / Time nut - unspecified Allergy Severe throat Verified 10/21/18 14:35 swelling aspirin Allergy Intermediate "ASTHMA" Verified 10/21/18 14:35 celecoxib Allergy Intermediate "ASTHMA Verified 10/21/18 14:35 ATTACK" codeine Allergy Intermediate "FACE Verified 10/21/18 14:35 PUFFS UP" morphine Allergy Intermediate "FACE Verified 10/21/18 14:35 PUFFS UP" latex Allergy Mild RASH Verified 10/21/18 14:35 caffeine AdvReac Intermediate HEADACHE Verified 10/21/18 14:35 midazolam AdvReac Intermediate extreme Verified 10/21/18 14:35 anxiety fentanyl AdvReac Mild DELIRIUM Verified 10/21/18 14:35 lorazepam AdvReac Mild ANXIOUS Verified 10/21/18 14:35 OPIOIDS AdvReac Intermediate HALLUCINATIONS Uncoded 10/21/18 14:35 (Fentanyl ok) Home Medications Home Medications Medication Instructions Recorded Confirmed Type cholecalciferol (vitamin D3) 2,000 units PO QAM 04/09/18 10/21/18 History [Vitamin D3] metoprolol succinate 25 mg PO QPM 04/09/18 10/21/18 History rivaroxaban [Xarelto] 20 mg PO HS 04/09/18 10/21/18 History albuterol sulfate 2 puffs INH Q6H PRN #1 ea 08/15/18 10/21/18 Rx tamsulosin 0.4 mg PO HS 10/09/18 10/21/18 History docusate sodium 100 mg PO DAILY 10/21/18 10/21/18 History Patient History Medical History Liver cancer (Acute) Hemorrhoids (Chronic) Perirectal abscess (Chronic) Asthma (Chronic) NO INHALER Atrial fibrillation (Chronic) On Xarelto Osteoarthritis (Chronic) Hyperlipidemia (Chronic) BORDERLINE Anal fistula (Chronic) Interstitial cystitis (Chronic) Chronic anticoagulation (Chronic) Coronary vasospasm (Chronic) 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 [facility], Dr. Escalera. Receiving Sandostatin injection monthly. 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 Beliefs That Will Affect Care: None marital status: Current Living Situation: Spouse Other Information That Helps Us Care for You: No Feels Safe at Home: Yes Safety Concerns: Feels Safe At This Time Smoking Status: Never smoker Second Hand Exposure: Yes ; Hx Alcohol Use: No Hx Substance Use: No Review of Systems Review of Systems: All systems reviewed & are unremarkable except as noted in HPI & below Physical Exam Constitutional: WD/WN, vitals as above Eyes: PERRL, conjunctivae normal, anicteric sclerae ENMT: external ear and nose normal, oropharynx normal Neck: normal visual inspection Respiratory: normal respiratory effort, lungs clear to auscultation Cardiovascular: RRR, no murmur, no edema Gastrointestinal (Abdomen): normal bowel sounds, soft, nontender, no hep atosplenomegaly Musculoskeletal: no cyanosis or clubbing, extremities motor strength 5/5 Skin: no rashes, warm and dry Psychiatric: A+Ox3, euthymic affect Results & Data Vital Signs (Past 12 Hours) Vital Signs Temp Pulse Pulse Resp BP BP Pulse Ox 10/23/18 09:10 48 L 10/23/18 07:50 36.9 C 59 L 17 173/84 H 98 10/23/18 04:40 37 C 47 L 20 136/60 94 10/22/18 23:18 36.8 C 48 L 16 113/63 95 Laboratory Results Microbiology 10/21/18 15:44 Urine,Straight Cath Urine Culture - Final Klebsiella pneumoniae 10/21/18 14:00 Blood Aerobic Blood Culture - Preliminary Gram positive cocci in chains 10/21/18 14:00 Blood Anaerobic Blood Culture - Final 10/21/18 13:55 Blood Aerobic Blood Culture - Preliminary No growth in Aerobic bottle after 24 hours. 10/21/18 13:55 Blood Anaerobic Blood Culture - Preliminary No growth in Anaerobic bottle after 24 hours. PG Care Time/CCT Total # of Minutes Spent Total Time Spent with Patient: Total time spent is greater than 50% in coordination of care (as documented) at patient's floor/unit and/or counseling patient:
[2018-10-23] MEDS: cefTRIAXone SODIUM 1,000 MG in DEXTROSE 5% 50 ML IV SCH (11:23)
[2018-10-23] MEDS: ACETAMINOPHEN 325 MG TAB PO PRN (19:45)
[2018-10-23] MEDS: METOPROLOL SUCC 25MG EXT REL TAB PO SCH (19:46)
[2018-10-23] MEDS: TAMSULOSIN HCL 0.4 MG CAP PO SCH (19:46)
[2018-10-23] MEDS: RIVAROXABAN 20 MG TAB PO SCH (19:46)
[2018-10-24] MEDS: SODIUM CHLORIDE 0.9% 1000ML 1,000 ML IV SCH (06:10)
[2018-10-24] MEDS: CHOLECALCIFEROL 1,000 UNITS TAB PO SCH (07:20)
[2018-10-24] MEDS: ACETAMINOPHEN 325 MG TAB PO PRN ×2 (07:23→19:21)
--- NOTE | 2018-10-24 08:08 | Hospitalist Progress Note ---
Date of Service October 24, 2018 Assessment & Plan (1) UTI (urinary tract infection): (2) Proctocolitis: (3) Leukocytosis: (4) Syncope, vasovagal: (5) Atrial fibrillation: (6) Hyperlipidemia: (7) Hypertension: (8) Asthma: (9) Osteoarthritis: (10) Metastatic carcinoid tumor: (11) Nausea vomiting and diarrhea: (12) Liver cancer: The patient has infectious proctocolitis c bacteremia and UTI sec to Klebsiella Pneumoniae, Replete K, Check Mag Of IV Zosyn, on case-Pt has existing followup with Dr. Gutierres on 12/14/18 at 3PM at [facility]. We will keep this appt unless patient status changes, WBCs down to normal, Adv diet, inpatient Tele, Continue appropriate OP meds, hold IVFs, PT, Similar syncopal episodes in the past, full code, +Bacteremia, repeat Cx NGTD, Urine Cx Pansensitive Klebsiella, On Rocephin. Nebs, CDT negative, ID on casel ROS-No Headache, No Visual Changes, + Nausea, + Dry Heaves, No Fever, + Chills, No Neck Pain or Stiffness, No Chest Pain, No Palpitations, No SOB, No ROD, No Cough, No Sputum, No Wheezing, No Abdominal Pain, +Non Bloody Diarrhea, No Hematemesis, No Hemoptysis, No Unexpected Weight Loss, No Flank pain, No Melena, No Hematochezia, No Frequency, No Urgency, +Burning, No Hematuria, No Rashes, No Diaphoresis. Appetite is Normal, Notes syncope, Feels much better than on Admission day Physical Exam Gen-AAO x 3, NAD, Afebrile Head-NCAT, EOMI, PERRLA, Anicteric Sclera, No Posterior Pharyngeal Erythema Neck-Supple, No JVD, No Thyromegaly, No Masses, No LAD, No Bruits Lungs-Clear to Auscultation Bilaterally, No Rales, No Rhonchi, No Wheezing, No Crepitus Chest-No S4, +S1, +S2, No S3, No Murmurs, No Rubs, No Gallops, No Ectopy Abdomen-Soft, Bowel Sounds Present, Non Tender, Non Distended, No Hepatomegaly, No Splenomegaly, No Palpable Masses, No Rebound, No Rigidity, No Guarding Musculoskeletal-Full Range of Motion Bilaterally, No CVAT Extremities-No Cyanosis, No Clubbing, No Edema Nuero-Cranial Nerves II-XII grossly intact, Motor WNL, DTRs WNL, Strength WNL, Non Focal Psych-Normal Mood Likely DC 1-2 days if Cultures are neg Results & Data Vital Signs (Past 12 Hours) Vital Signs Temp Pulse Resp BP BP Pulse Ox 10/24/18 07:58 36.8 C 57 L 19 180/92 H 98 10/24/18 04:00 36.6 C 48 L 17 159/79 H 98 10/23/18 23:24 36.5 C 48 L 16 121/65 96 Current Diagnoses Malignant neoplasm of liver, not specified as primary or secondary (10/21/18) Secondary carcinoid tumors, unspecified site (10/21/18) Elevated white blood cell count, unspecified (10/21/18) Hyperlipidemia, unspecified (10/21/18) Essential (primary) hypertension (10/21/18) Unspecified atrial fibrillation (10/21/18) Unspecified asthma, uncomplicated (10/21/18) Noninfective gastroenteritis and colitis, unspecified (10/21/18) Unspecified osteoarthritis, unspecified site (10/21/18) Urinary tract infection, site not specified (10/21/18) Nausea with vomiting, unspecified (10/21/18) Diarrhea, unspecified (10/21/18) Syncope and collapse (10/21/18) Allergies nut - unspecified Allergy (Severe, Verified 10/21/18 14:35) throat swelling aspirin Allergy (Intermediate, Verified 10/21/18 14:35) "ASTHMA" celecoxib Allergy (Intermediate, Verified 10/21/18 14:35) "ASTHMA ATTACK" codeine Allergy (Intermediate, Verified 10/21/18 14:35) "FACE PUFFS UP" morphine Allergy (Intermediate, Verified 10/21/18 14:35) "FACE PUFFS UP" latex Allergy (Mild, Verified 10/21/18 14:35) RASH caffeine Adverse Reaction (Intermediate, Verified 10/21/18 14:35) HEADACHE midazolam Adverse Reaction (Intermediate, Verified 10/21/18 14:35) extreme anxiety fentanyl Adverse Reaction (Mild, Verified 10/21/18 14:35) DELIRIUM lorazepam Adverse Reaction (Mild, Verified 10/21/18 14:35) ANXIOUS OPIOIDS Adverse Reaction (Intermediate, Uncoded 10/21/18 14:35) HALLUCINATIONS (Fentanyl ok) Height/Weight/Isolation Height 5 ft 2 in Weight 67 kg Chemistry 10/23/18 06:13 Sodium 148 H Potassium 3.1 L Chloride 115 H Carbon Dioxide 25 Anion Gap 8.0 BUN 4 L Creatinine 0.78 Glucose 106 H Microbiology 10/23/18 06:23 Blood Aerobic Blood Culture - Preliminary No growth in Aerobic bottle after 24 hours. 10/23/18 06:23 Blood Anaerobic Blood Culture - Preliminary No growth in Anaerobic bottle after 24 hours. 10/23/18 06:13 Blood Aerobic Blood Culture - Preliminary No growth in Aerobic bottle after 24 hours. 10/23/18 06:13 Blood Anaerobic Blood Culture - Preliminary No growth in Anaerobic bottle after 24 hours. 10/21/18 13:55 Blood Aerobic Blood Culture - Preliminary No growth in Aerobic bottle after 48 hours. 10/21/18 13:55 Blood Anaerobic Blood Culture - Preliminary No growth in Anaerobic bottle after 48 hours. 10/21/18 15:44 Urine,Straight Cath Urine Culture - Final Klebsiella pneumoniae 10/21/18 14:00 Blood Aerobic Blood Culture - Preliminary Gram positive cocci in chains 10/21/18 14:00 Blood Anaerobic Blood Culture - Final
[2018-10-24 08:09] LABS: Basophils # (auto) 0.03 K/uL (0-0.2); Basophils % (auto) 0.5 %; Eosinophils # (auto) 0.28 K/uL (0-0.5); Eosinophils % (auto) 4.7 %; Hematocrit (blood only) 29.1 % (37-47); Hemoglobin 9.4 g/dL (12.0-16.0); Immature Granulocytes # (auto) 0.01 K/uL (0.00-0.02); Immature Granulocytes % (auto) 0.2 %; Lymphocytes # (auto) 1.83 K/uL (1.2-3.4); Lymphocytes % (auto) 30.5 %; Mean Corpuscular Hemoglobin 28.1 pg (25-34); Mean Corpuscular Hgb Conc 32.3 g/dL (32-36); Mean Corpuscular Volume 87.1 fL (80-100); Mean Platelet Volume 10.8 fL (7.4-10.4); Monocytes # (auto) 0.52 K/uL (0.11-0.59); Monocytes % (auto) 8.7 %; Neutrophils # (auto) 3.33 K/uL (1.4-6.5); Neutrophils % (auto) 55.4 %; Platelet Count 237 K/uL (130-400); RDW Coefficient of Variation 16.8 % (11.5-14.5); RDW Standard Deviation 53.7 fL (36.4-46.3); Red Blood Count 3.34 M/uL (4.2-5.4)
[2018-10-24 08:14] LABS: Albumin Level 2.6 gm/dl (3.4-5.0); BUN Creatinine Ratio 4.3 (10-20); Calcium 8.1 mg/dl (8.5-10.1); Creatinine Clr Calc Pharmacy 64.2 ml/min; Est GFR (African American) 99.6; Potassium 2.8 mmol/L (3.5-5.1)
[2018-10-24 08:17] LABS: Albumin Globulin Ratio 0.7 (0.9-2); Bilirubin,Total 0.3 mg/dl (0.2-1); Globulin 3.6 gm/dl (2.5-4.0); Total Protein 6.2 gm/dl (6.4-8.2)
[2018-10-24] MEDS: POTASSIUM CHLORIDE / WTR 10 MEQ/100 ML PLCT IV SCH ×4 (08:57→12:04)
[2018-10-24] MEDS: cefTRIAXone SODIUM 1,000 MG in DEXTROSE 5% 50 ML IV SCH (13:06)
--- NOTE | 2018-10-24 13:30 | Infectious Disease Progress Nt ---
Date of Service October 24, 2018 Assessment & Plan (1) UTI (urinary tract infection): continue rocephin for now, repeat cultures pending, suspect + blood culture is contaminant. clinically improving, would give 7 days total for uti. can change to keflex to complete course. repeat cultures negative. Subjective 1/4 initial blood culture bottles growing gram variable kelvin, remains on rocephin, tolerating well. repeat blood cultures negative. wbc 6, creat 0.7.urine culture growing Klebsiella. Results & Data Vital Signs (Past 12 Hours) Vital Signs Temp Pulse Pulse Resp BP BP Pulse Ox 10/24/18 11:05 36.7 C 57 L 19 170/84 H 98 10/24/18 08:00 50 L 10/24/18 07:58 36.8 C 57 L 19 180/92 H 98 10/24/18 04:00 36.6 C 48 L 17 159/79 H 98 Laboratory Results Microbiology 10/21/18 14:00 Blood Aerobic Blood Culture - Preliminary Gram variable bacilli 10/21/18 14:00 Blood Anaerobic Blood Culture - Final 10/23/18 06:23 Blood Aerobic Blood Culture - Preliminary No growth in Aerobic bottle after 24 hours. 10/23/18 06:23 Blood Anaerobic Blood Culture - Preliminary No growth in Anaerobic bottle after 24 hours. 10/23/18 06:13 Blood Aerobic Blood Culture - Preliminary No growth in Aerobic bottle after 24 hours. 10/23/18 06:13 Blood Anaerobic Blood Culture - Preliminary No growth in Anaerobic bottle after 24 hours. 10/21/18 13:55 Blood Aerobic Blood Culture - Preliminary No growth in Aerobic bottle after 48 hours. 10/21/18 13:55 Blood Anaerobic Blood Culture - Preliminary No growth in Anaerobic bottle after 48 hours. 10/21/18 15:44 Urine,Straight Cath Urine Culture - Final Klebsiella pneumoniae PG Care Time/CCT Total # of Minutes Spent Total Time Spent with Patient: Total time spent is greater than 50% in coordination of care (as documented) at patient's floor/unit and/or counseling patient:
[2018-10-24] MEDS: METOPROLOL SUCC 25MG EXT REL TAB PO SCH (19:22)
[2018-10-24] MEDS: RIVAROXABAN 20 MG TAB PO SCH (19:22)
[2018-10-24] MEDS: TAMSULOSIN HCL 0.4 MG CAP PO SCH (19:22)
[2018-10-25 05:58] LABS: Basophils # (auto) 0.01 K/uL (0-0.2); Basophils % (auto) 0.2 %; Eosinophils # (auto) 0.31 K/uL (0-0.5); Eosinophils % (auto) 5.1 %; Hematocrit (blood only) 29.2 % (37-47); Hemoglobin 9.4 g/dL (12.0-16.0); Immature Granulocytes # (auto) 0.01 K/uL (0.00-0.02); Immature Granulocytes % (auto) 0.2 %; Lymphocytes # (auto) 1.88 K/uL (1.2-3.4); Mean Corpuscular Hemoglobin 28.1 pg (25-34); Mean Corpuscular Hgb Conc 32.2 g/dL (32-36); Mean Corpuscular Volume 87.4 fL (80-100); Mean Platelet Volume 10.9 fL (7.4-10.4); Monocytes # (auto) 0.43 K/uL (0.11-0.59); Monocytes % (auto) 7.1 %; Neutrophils # (auto) 3.42 K/uL (1.4-6.5); Neutrophils % (auto) 56.4 %; Platelet Count 237 K/uL (130-400); RDW Coefficient of Variation 16.8 % (11.5-14.5); RDW Standard Deviation 53.5 fL (36.4-46.3); Red Blood Count 3.34 M/uL (4.2-5.4); White Blood Count 6.06 K/uL (4.8-10.8)
[2018-10-25 06:34] LABS: BUN Creatinine Ratio 10.3 (10-20); Calcium 8.4 mg/dl (8.5-10.1); Creatinine Clr Calc Pharmacy 56.4 ml/min; Est GFR (African American) 86.1; Est GFR (Non-African American) 74.3
[2018-10-25] MEDS ORDERED: POTASSIUM CHLORIDE 10 MEQ TABCR PO STA (07:49)
[2018-10-25] MEDS: ACETAMINOPHEN 325 MG TAB PO PRN ×3 (07:51→16:27)
[2018-10-25] MEDS: CHOLECALCIFEROL 1,000 UNITS TAB PO SCH (07:52)
[2018-10-25] MEDS: POTASSIUM CHLORIDE / WTR 10 MEQ/100 ML PLCT IV SCH ×2 (08:38→10:07)
[2018-10-25] MEDS: cefTRIAXone SODIUM 1,000 MG in DEXTROSE 5% 50 ML IV SCH (11:16)
--- NOTE | 2018-10-25 11:29 | Urology Progress Note ---
Date of Service October 25, 2018 Assessment & Plan (1) UTI (urinary tract infection): 73yo F with hx IC, AUR, Liver CA, s/p perianal fistula repair admitted with Klebsiella UTI, prelim +BCx, incomplete emptying Abx per Infectious Disease, appreciate their input. Pt states her voiding pattern is back to her normal Requested pelvic exam - completed at bedside today. reveals vaginal atrophy, cystocele grade 1-2, not severe or overly worrisome. Plan to keep follow up as scheduled with Dr. Gutierres in November, as she plans to initiate radiation for liver CA soon. Thank you for allowing us to participate in the acute care of Ms. Garzon. Please reconsult with additional questions, concerns or changes in patient care. Subjective 73yo F with hx IC, AUR, Liver CA, s/p perianal fistula repair admitted with Klebsiella UTI, prelim +BCx, incomplete emptying She states she is feeling slightly better today. Feels her voiding pattern is back to baseline. No further issues or concerns today. Review of Systems Review of Systems: All systems reviewed & are unremarkable except as noted in HPI & below Physical Exam Constitutional: no acute distress and not ill appearing Eyes: no nystagmus ENMT: Ears: no hearing impairment Neck: trachea midline Respiratory: no respiratory distress and no cough Cardiovascular: Vessels: no JVD Chest (Breasts): Chest: normal inspection of chest Gastrointestinal (Abdomen): Inspection/Auscultation: abdomen not distended and no abdominal edema Percussion/Palpation: abdomen soft; abdomen nontender Musculoskeletal: Head/Neck/Chest: normocephalic and head atraumatic Skin: no rashes, warm and dry Neurologic: awake; not confused and not obtunded Psychiatric: Orientation: alert and oriented x 3 Eye Contact: good eye contact Affect: no depressed affect Genitourinary: no urethral lesion Speculum/Bimanual Exam: bladder normal to palpation and + cystocele (grade 1-2) vaginal atrophy, cystocele grade 1-2. Lymphatic: no lymphadenopathy and no lymphedema Results & Data Vital Signs (Past 12 Hours) Vital Signs Temp Pulse Resp BP BP Pulse Ox 10/25/18 11:07 36.6 C 74 19 160/90 H 98 10/25/18 07:12 36.8 C 53 L 18 157/75 H 98 10/25/18 04:00 36.7 C 51 L 18 127/66 95 10/25/18 00:04 36.5 C 52 L 16 151/68 H 97
--- NOTE | 2018-10-25 16:45 | Hospitalist Progress Note ---
Date of Service October 25, 2018 Assessment & Plan (1) UTI (urinary tract infection): UTI H/O Interstitial cystitis To R/O Bacteremia --CT ABD:No evidence of pulmonary thromboembolic disease. No focal airspace consolidation, adenopathy or pleural effusion. No bowel obstruction or pneumoperitoneum. Wall thickening of the distal colon and rectum is suggestive of a nonspecific proctocolitis. Fluid-filled loops of bowel suggests associated diarrheal illness. Progressive hepatic metastatic disease with increased size of the neoplastic spiculated mesenteric lesion of the right midabdomen. Mild urothelial thickening about the right renal pelvis and collecting system. Correlate clinically to exclude infectious etiology. Additional findings as above. 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 Escalera as outpatient Plan to be started on radiation therapy Recurrent Syncope No arrhythmias on telemetry Likely Vasovagal from dehydration due to chronic diarrhea Atrial Fibrillation Continue Metoprolol, Xarelto Hypokalemia: Likely GI loses Replace electrolytes as needed HTN: Variable BP On Metoprolol, Tamsulosin Monitor and adjust meds as needed DVT Px: On Xarelto Code Status Full Code Disposition: Plan to discharge home when stable Subjective Patient is seen and examined at bedside Nauseous earlier today which resolved Denies any chest pain, shortness of breath, dysuria, abdominal pain, dizziness Discussed with patient, patient's daughter in detail Review of Systems Review of Systems: All systems reviewed & are unremarkable except as noted in HPI & below Physical Exam Physical Exam: Physical Exam: Vitals signs as noted above General Appearance:Moderately built and nourished, no apparent distress Head: normocephalic, Atraumatic Eyes: normal inspection, EOMI Neck: supple, Trachea midline Respiratory/Chest: Normal breath sounds, CTA Cardiovascular: S1, S2, No murmur Abdomen/GI:Soft, Non tender, Bowel sounds present Extremities/Musculoskelatal:normal inspection, Trace edema Neurologic/Psych:AAOX3, grossly no focal neurological deficits Skin: normal color, warm Results & Data Vital Signs (Past 12 Hours) Vital Signs Temp Pulse Resp BP BP Pulse Ox 10/25/18 15:44 36.6 C 58 L 18 184/90 H 178/84 H 100 10/25/18 11:07 36.6 C 74 19 160/90 H 98 10/25/18 07:12 36.8 C 53 L 18 157/75 H 98 Laboratory Results Short CBC 10/25/18 Range/Units 05:31 WBC 6.06 (4.8-10.8) K/uL Hgb 9.4 L (12.0-16.0) g/dL Hct 29.2 L (37-47) % Plt Count 237 (130-400) K/uL BMP 10/25/18 05:31 Sodium 146 H Potassium 3.0 L Chloride 114 H Carbon Dioxide 27 BUN 8 D Creatinine 0.79 Glucose 117 H Calcium 8.4 L
[2018-10-25] MEDS ORDERED: HydrALAZINE 10 MG TAB PO PRN (17:19)
[2018-10-25] MEDS: METOPROLOL SUCC 25MG EXT REL TAB PO SCH (20:58)
[2018-10-25] MEDS: RIVAROXABAN 20 MG TAB PO SCH (20:58)
[2018-10-25] MEDS: TAMSULOSIN HCL 0.4 MG CAP PO SCH (20:58)
[2018-10-26 06:20] LABS: Hematocrit (blood only) 31.2 % (37-47); Hemoglobin 9.9 g/dL (12.0-16.0)
[2018-10-26 06:51] LABS: BUN Creatinine Ratio 9.2 (10-20); Calcium 8.5 mg/dl (8.5-10.1); Creatinine Clr Calc Pharmacy 60.5 ml/min; Est GFR (African American) 93.2; Est GFR (Non-African American) 80.4; Magnesium 2.3 mg/dl (1.8-2.4); Potassium 3.5 mmol/L (3.5-5.1)
[2018-10-26] MEDS: ONDANSETRON INJ 2 MG/ML 2 ML VIAL IV PRN (07:16)
[2018-10-26] MEDS: CHOLECALCIFEROL 1,000 UNITS TAB PO SCH (08:29)
[2018-10-26] MEDS ORDERED: D5W AND 1/2NSS + 20MEQ KCL 20 MEQ/1,000 ML BAG IV ONE (08:42)
[2018-10-26] MEDS ORDERED: POTASSIUM CHLORIDE 10 MEQ TABCR PO STA ×2 (08:44→18:06)
[2018-10-26] MEDS ORDERED: LISINOPRIL 20 MG TAB PO SCH (09:00)
[2018-10-26] MEDS ORDERED: SODIUM CHLORIDE 0.9% 1000ML 1,000 ML IV PRN (09:35)
[2018-10-26] MEDS ORDERED: EPOETIN ALFA 4,000 UNIT/ML VIAL IV ONE (09:35)
[2018-10-26] MEDS: DEXTROSE 5% 1,000 ML IV SCH ×2 (09:50→21:09)
[2018-10-26] MEDS: cephALEXin 500 MG CAP PO SCH ×2 (12:54→21:08)
[2018-10-26] MEDS: LACTOBACILLUS ACIDOPHILUS (FLORANEX) TAB PO SCH ×3 (12:54→21:08)
--- NOTE | 2018-10-26 16:21 | Hospitalist Progress Note ---
Date of Service October 26, 2018 Assessment & Plan (1) UTI (urinary tract infection): UTI H/O Interstitial cystitis To R/O Bacteremia --CT ABD:No evidence of pulmonary thromboembolic disease. No focal airspace consolidation, adenopathy or pleural effusion. No bowel obstruction or pneumoperitoneum. Wall thickening of the distal colon and rectum is suggestive of a nonspecific proctocolitis. Fluid-filled loops of bowel suggests associated diarrheal illness. Progressive hepatic metastatic disease with increased size of the neoplastic spiculated mesenteric lesion of the right midabdomen. Mild urothelial thickening about the right renal pelvis and collecting system. Correlate clinically to exclude infectious etiology. Additional findings as above. 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 Escalera as outpatient Plan to be started on radiation therapy Hyponatremia Likely secondary to dehydration Started on D5 water Monitor sodium levels Appreciate nephrology input Recurrent Syncope No arrhythmias on telemetry Likely Vasovagal from dehydration due to chronic diarrhea Atrial Fibrillation Continue Metoprolol, Xarelto Hypokalemia: Likely GI loses Replace electrolytes as needed HTN: Variable BP On Metoprolol, Tamsulosin Monitor and adjust meds as needed DVT Px: On Xarelto Code Status Full Code Disposition: Plan to discharge home when stable Subjective Patient is seen and examined at bedside Had formed loose bowel movements yesterday, no bowel movement this morning Noted to be hypernatremic on labs Chronic nausea, dizziness per patient Discussed with nephrology today Denies any chest pain, shortness of breath, dysuria, abdominal pain Review of Systems Review of Systems: All systems reviewed & are unremarkable except as noted in HPI & below Physical Exam Physical Exam: Physical Exam: Vitals signs as noted above General Appearance:Moderately built and nourished, no apparent distress Head: normocephalic, Atraumatic Eyes: normal inspection, EOMI Neck: supple, Trachea midline Respiratory/Chest: Normal breath sounds, CTA Cardiovascular: S1, S2, No murmur Abdomen/GI:Soft, Non tender, Bowel sounds present Extremities/Musculoskelatal:normal inspection, Trace edema Neurologic/Psych:AAOX3, grossly no focal neurological deficits Skin: normal color, warm Results & Data Vital Signs (Past 12 Hours) Vital Signs Temp Pulse Pulse Resp BP Pulse Ox 10/26/18 15:23 36.6 C 59 L 18 145/78 H 95 10/26/18 11:02 36.8 C 55 L 18 161/74 H 97 10/26/18 08:29 173/74 H 10/26/18 07:15 56 L 10/26/18 07:02 36.6 C 67 20 194/92 H 99 Laboratory Results Short CBC 10/26/18 Range/Units 05:43 Hgb 9.9 L (12.0-16.0) g/dL Hct 31.2 L (37-47) % BMP 10/26/18 05:43 Sodium 151 H Potassium 3.5 D Chloride 118 H Carbon Dioxide 27 BUN 7 Creatinine 0.74 Glucose 112 H Calcium 8.5
[2018-10-26 16:22] LABS: BUN Creatinine Ratio 11.8 (10-20); Calcium 8.3 mg/dl (8.5-10.1); Creatinine Clr Calc Pharmacy 65.8 ml/min; Est GFR (African American) 100.6; Est GFR (Non-African American) 86.8; Potassium 3.4 mmol/L (3.5-5.1)
--- NOTE | 2018-10-26 17:29 | Nephrology Consultation ---
Date of Consultation October 26, 2018 Assessment & Plan (1) Hypernatremia: Due to inadequate water intake. Free water deficit of about 1.8 L. We will start her on D5 water at 80 mL/h for 24 hours. Monitor sodium daily no need to correct more than 10 points in 24 hours. (2) UTI (urinary tract infection): Patient with pansensitive Klebsiella UTI. Patient is receiving Keflex per primary team. (3) Hypertension: Blood pressure is above target but acceptable. Patient is on metoprolol. Given her dizziness would aim for systolic blood pressure between 140 at 150. (4) Hypokalemia: Due to diarrhea. Monitor and replace as needed with oral potassium chloride. History of Present Illness Reason for Consultation: Hypernatremia Requesting Physician: Marlon Witt MD Attending Physician: Marlon Witt MD History of Present Illness This is a 73yo F with past medical history of interstitial cystitis, recurrent urinary retention, Liver CA, s/p perianal fistula repair admitted on 10/21/2018 with Klebsiella UTI. She is now on Keflex for the UTI. She was admitted with normal sodium of 142 but has slowly risen over the past few days and now up to 151. She also had hypokalemia which has been aggressively corrected and potassium today of 3.5. Her main complaint this morning is dizziness. No vomiting but has chronic diarrhea from the carcinoid tumor. She has recurrent problems with urinary retention but urology is trying to avoid chronic Banuelos catheter due to her recent perianal fistula repair. I have been asked to evalua te her for hypernatremia. He did receive some normal saline over the course of the admission. She is not drinking enough water Allergies Allergy/AdvReac Type Severity Reaction Status Date / Time nut - unspecified Allergy Severe throat Verified 10/21/18 14:35 swelling aspirin Allergy Intermediate "ASTHMA" Verified 10/21/18 14:35 celecoxib Allergy Intermediate "ASTHMA Verified 10/21/18 14:35 ATTACK" codeine Allergy Intermediate "FACE Verified 10/25/18 08:00 PUFFS UP" morphine Allergy Intermediate "FACE Verified 10/25/18 08:00 PUFFS UP" latex Allergy Mild RASH Verified 10/21/18 14:35 caffeine AdvReac Intermediate HEADACHE Verified 10/21/18 14:35 midazolam AdvReac Intermediate extreme Verified 10/21/18 14:35 anxiety fentanyl AdvReac Mild DELIRIUM Verified 10/21/18 14:35 lorazepam AdvReac Mild ANXIOUS Verified 10/21/18 14:35 Home Medications Home Medications Medication Instructions Recorded Confirmed Type cholecalciferol (vitamin D3) 2,000 units PO QAM 04/09/18 10/21/18 History [Vitamin D3] metoprolol succinate 25 mg PO QPM 04/09/18 10/21/18 History rivaroxaban [Xarelto] 20 mg PO HS 04/09/18 10/21/18 History albuterol sulfate 2 puffs INH Q6H PRN #1 ea 08/15/18 10/21/18 Rx tamsulosin 0.4 mg PO HS 10/09/18 10/21/18 History docusate sodium 100 mg PO DAILY 10/21/18 10/21/18 History Patient History Medical History Liver cancer (Acute) Hemorrhoids (Chronic) Perirectal abscess (Chronic) Asthma (Chronic) NO INHALER Atrial fibrillation (Chronic) On Xarelto Osteoarthritis (Chronic) Hyperlipidemia (Chronic) BORDERLINE Anal fistula (Chronic) Interstitial cystitis (Chronic) Chronic anticoagulation (Chronic) Coronary vasospasm (Chronic) 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 [facility]s [facility], Dr. Escalera. Receiving Sandostatin injection monthly. Hypertension (Chronic) Proctocolitis UTI (urinary tract infection) Surgical History History of cardiac cath (Chronic) [facility] 2016; "Normal coronary arteries." History of tooth extraction (Chronic) History of liver biopsy (Chronic) History of dilatation and curettage (Chronic) S/P appendectomy (Chronic) History of tonsillectomy and adenoidectomy (Chronic) S/P cholecystectomy (Chronic) History of hysterectomy (Chronic) Family History Sister Family history of diabetes mellitus Social History Preferred Language: Croatian Communication Ability: Effective Cloth Tearer Required: No Beliefs That Will Affect Care: None marital status: Current Living Situation: Spouse Other Information That Helps Us Care for You: No Feels Safe at Home: Yes Safety Concerns: Feels Safe At This Time Smoking Status: Never smoker Second Hand Exposure: Yes ; Hx Alcohol Use: No Hx Substance Use: No Review of Systems Review of Systems: All systems reviewed & are unremarkable except as noted in HPI & below Physical Exam Physical Exam: General exam: Appears comfortable, no acute distress HEENT: Pupils are equal and reactive to light Neck: No JVD, neck is supple trachea is midline Respiratory system: Clear breath sounds bilaterally. Gastrointestinal: Abdomen is soft, non distended, non tender, bowel sounds are present CVS: Regular rate and rhythm. No murmurs, rubs or gallops Musculoskeletal: No joint or muscle tenderness Extremities: Non tender, no edema, peripheral pulses are present Neuro: Oriented, no tremors, no focal neurological deficits Skin: No rashes Results & Data Vital Signs (Past 12 Hours) Vital Signs Temp Pulse Pulse Resp BP Pulse Ox 10/26/18 15:23 36.6 C 59 L 18 145/78 H 95 10/26/18 11:02 36.8 C 55 L 18 161/74 H 97 10/26/18 08:29 173/74 H 10/26/18 07:15 56 L 10/26/18 07:02 36.6 C 67 20 194/92 H 99 Laboratory Results Laboratory Results - last 24 hr 10/26/18 10/26/18 10/26/18 05:43 05:43 15:48 Hgb 9.9 L Hct 31.2 L Sodium 151 H 148 H Potassium 3.5 D 3.4 L Chloride 118 H 115 H Carbon Dioxide 27 29 Anion Gap 6.0 4.0 BUN 7 8 Creatinine 0.74 0.68 Est Cr Clr Drug Dosing 60.5 65.8 Est GFR ( Amer) 93.2 100.6 Est GFR (Non-Af Amer) 80.4 86.8 BUN/Creatinine Ratio 9.2 L 11.8 Glucose 112 H 82 Calcium 8.5 8.3 L Magnesium 2.3
[2018-10-26] MEDS: TAMSULOSIN HCL 0.4 MG CAP PO SCH (21:08)
[2018-10-26] MEDS: RIVAROXABAN 20 MG TAB PO SCH (21:09)
[2018-10-26] MEDS: METOPROLOL SUCC 25MG EXT REL TAB PO SCH (21:09)
[2018-10-26] MEDS: ACETAMINOPHEN 325 MG TAB PO PRN (22:07)
[2018-10-26 22:51] LABS: BUN Creatinine Ratio 13.7 (10-20); Calcium 7.9 mg/dl (8.5-10.1); Creatinine Clr Calc Pharmacy 64.9 ml/min; Est GFR (African American) 100.1; Est GFR (Non-African American) 86.4; Potassium 3.6 mmol/L (3.5-5.1)
[2018-10-27 07:01] LABS: BUN Creatinine Ratio 11.2 (10-20); Calcium 8.1 mg/dl (8.5-10.1); Creatinine Clr Calc Pharmacy 63.9 ml/min; Est GFR (African American) 97.9; Est GFR (Non-African American) 84.5; Potassium 3.6 mmol/L (3.5-5.1)
[2018-10-27] MEDS: cephALEXin 500 MG CAP PO SCH (07:58)
[2018-10-27] MEDS: CHOLECALCIFEROL 1,000 UNITS TAB PO SCH (07:59)
[2018-10-27] MEDS: LACTOBACILLUS ACIDOPHILUS (FLORANEX) TAB PO SCH ×2 (07:59→12:28)
[2018-10-27] MEDS: ACETAMINOPHEN 325 MG TAB PO PRN (10:41)
--- NOTE | 2018-10-27 12:28 | Hospitalist Progress Note ---
Date of Service October 27, 2018 Assessment & Plan (1) UTI (urinary tract infection): UTI H/O Interstitial cystitis To R/O Bacteremia --CT ABD:No evidence of pulmonary thromboembolic disease. No focal airspace consolidation, adenopathy or pleural effusion. No bowel obstruction or pneumoperitoneum. Wall thickening of the distal colon and rectum is suggestive of a nonspecific proctocolitis. Fluid-filled loops of bowel suggests associated diarrheal illness. Progressive hepatic metastatic disease with increased size of the neoplastic spiculated mesenteric lesion of the right midabdomen. Mild urothelial thickening about the right renal pelvis and collecting system. Correlate clinically to exclude infectious etiology. Additional findings as above. 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 Escalera as outpatient Plan to be started on radiation therapy as outpatient Hypernatremia--Resolved Likely secondary to dehydration Received D5 water sodium levels normalized Appreciate nephrology input Recurrent Syncope No arrhythmias on telemetry Likely Vasovagal from dehydration due to chronic diarrhea Consider Cardiology evaluation as outpatient Atrial Fibrillation Continue Metoprolol, Xarelto Hypokalemia: Likely GI loses Replace electrolytes as needed HTN: Variable BP On Metoprolol, Tamsulosin Monitor and adjust meds as needed DVT Px: On Xarelto Code Status Full Code Disposition: Plan to discharge home with Home Health Subjective Patient is seen and examined at bedside Doing much better today Denies diarrhea today No new complaints sodium levels improved Discussed with Nephrology today Chronic dizziness--unchanged per patient Denies any chest pain, shortness of breath, dysuria, abdominal pain Review of Systems Review of Systems: All systems reviewed & are unremarkable except as noted in HPI & below Physical Exam Physical Exam: Physical Exam: Vitals signs as noted above General Appearance:Moderately built and nourished, no apparent distress Head: normocephalic, Atraumatic Eyes: normal inspection, EOMI Neck: supple, Trachea midline Respiratory/Chest: Normal breath sounds, CTA Cardiovascular: S1, S2, No murmur Abdomen/GI:Soft, Non tender, Bowel sounds present Extremities/Musculoskelatal:normal inspection, Trace edema Neurologic/Psych:AAOX3, grossly no focal neurological deficits Skin: normal color, warm Results & Data Vital Signs (Past 12 Hours) Vital Signs Temp Pulse Pulse Resp BP Pulse Ox 10/27/18 11:09 36.8 C 52 L 18 153/77 H 99 10/27/18 07:30 47 L 10/27/18 07:05 36.5 C 56 L 19 159/82 H 98 10/27/18 03:25 36.5 C 49 L 18 130/74 97 Laboratory Results [facility] 10/26/18 10/26/18 10/27/18 15:48 21:57 05:38 Sodium 148 H 144 141 Potassium 3.4 L 3.6 3.6 Chloride 115 H 110 H 108 H Carbon Dioxide 29 28 29 BUN 8 10 8 Creatinine 0.68 0.69 0.71 Glucose 82 107 H 114 H Calcium 8.3 L 7.9 L 8.1 L
--- NOTE | 2018-10-27 12:36 | Discharge Summary ---
Date of Service October 27, 2018 Admission HPI Per Admitting Provider 73 year old female with PMH as below reports a syncopal episode that occurred this morning while the patient was having a bowel movement. According to Dr Magallanes EMS reports that the patients eyes rolled back into her head during the episode but denies that the patient had any tonic-clonic episodes. EMS notes that the episode lasted for around 45 seconds. EMS denies that the patient has any altered mental status. EMS notes that the patient was 70-80 systolic during the trip to the ED but notes that her BP graeme to 112/81 upon arrival. EMS states that they were unable to draw any blood en route. EMS reports that the patient is feeling nauseous but denies that she has vomited. EMS notes that the patient has been intermittently flushed in her face and that she felt slightly clammy. EMS states that the patient was found to have liver cancer recently and is scheduled to start radiation treatment with [facility] soon. She notes that her lips felt numb before her symptoms began. She states that she had some abdominal pain and that she went to have a bowel movement. She notes that her bowel movement this morning was not abnormal. She denies falling during the episode. She states that she currently feels like she has excess gas in her bowels and notes that she feels like she needs to have a bowel movement. She denies any chest pain, neck pain or abdominal pain currently. She denies any recent black or bloody stools. The patient reports that she has carcinoids on her bowels as well as her liver. She denies receiving any chemotherapy or radiation treatment yet. She notes that she is taking Xarelto for a history of atrial fibrillation. She denies any falls or travel recently. She denies any history of an NH. The patient's family states that the patient had 4 episodes of syncope this morning while she was in the bathroom. Her family reports that the patient was groggy following her first episode and had difficulty speaking. Her family notes that the patient was weak and had difficulty standing on her own. Her family reports that the patient has had similar past episodes that are possibly secondary to hypotensive episodes while straining during a bowel movement. Primary Care Provider: Kerri Schulz Admission Exam Per Admitting Provider Physical Exam Gen-AAO x 3, NAD, Afebrile, flushed Head-NCAT, EOMI, PERRLA, Anicteric Sclera, No Posterior Pharyngeal Erythema Neck-Supple, No JVD, No Thyromegaly, No Masses, No LAD, No Bruits Lungs-Clear to Auscultation Bilaterally, No Rales, No Rhonchi, No Wheezing, No Crepitus Chest-No S4, +S1, +S2, No S3, No Murmurs, No Rubs, No Gallops, No Ectopy Abdomen-Soft, Bowel Sounds Present, Non Tender, Non Distended, No Hepatomegaly, No Splenomegaly, No Palpable Masses, No Rebound, No Rigidity, No Guarding Musculoskeletal-Full Range of Motion Bilaterally, No CVAT Extremities-No Cyanosis, No Clubbing, No Edema Nuero-Cranial Nerves II-XII grossly intact, Motor WNL, DTRs WNL, Strength WNL, Non Focal Psych-Normal Mood Principal Diagnosis Discharge Information Discharge Diagnosis Urinary tract infection Proctocolitis Hypernatremia Recurrent syncope Discharge Goals Decrease discomfort,Improve disease control, Improve function Discharge Activity Limitations Resume your previous activity Discharge Data Allergies Allergy/AdvReac Type Severity Reaction Status Date / Time nut - unspecified Allergy Severe throat Verified 10/21/18 14:35 swelling aspirin Allergy Intermediate "ASTHMA" Verified 10/21/18 14:35 celecoxib Allergy Intermediate "ASTHMA Verified 10/21/18 14:35 ATTACK" codeine Allergy Intermediate "FACE Verified 10/25/18 08:00 PUFFS UP" morphine Allergy Intermediate "FACE Verified 10/25/18 08:00 PUFFS UP" latex Allergy Mild RASH Verified 10/21/18 14:35 caffeine AdvReac Intermediate HEADACHE Verified 10/21/18 14:35 midazolam AdvReac Intermediate extreme Verified 10/21/18 14:35 anxiety fentanyl AdvReac Mild DELIRIUM Verified 10/21/18 14:35 lorazepam AdvReac Mild ANXIOUS Verified 10/21/18 14:35 Consultations 10/21/18 16:23 ED Decision to Admit Stat 10/22/18 10:12 Consult Urology Routine 10/23/18 05:58 Consult Infectious Diseases Routine 10/26/18 08:42 Consult Nephrology Routine Procedures Performed Chest CTA: 1. No evidence of pulmonary thromboembolic disease. 2. No focal airspace consolidation, adenopathy or pleural effusion. 3. No bowel obstruction or pneumoperitoneum. 4. Wall thickening of the distal colon and rectum is suggestive of a nonspecific proctocolitis. Fluid-filled loops of bowel suggests associated diarrheal illness. 5. Progressive hepatic metastatic disease with increased size of the neoplastic spiculated mesenteric lesion of the right midabdomen. 6. Mild urothelial thickening about the right renal pelvis and collecting system. Correlate clinically to exclude infectious etiology. 7. Additional findings as above. CT ABD: 1. No evidence of pulmonary thromboembolic disease. 2. No focal airspace consolidation, adenopathy or pleural effusion. 3. No bowel obstruction or pneumoperitoneum. 4. Wall thickening of the distal colon and rectum is suggestive of a nonspecific proctocolitis. Fluid-filled loops of bowel suggests associated diarrheal illness. 5. Progressive hepatic metastatic disease with increased size of the neoplastic spiculated mesenteric lesion of the right midabdomen. 6. Mild urothelial thickening about the right renal pelvis and collecting system. Correlate clinically to exclude infectious etiology. 7. Additional findings as above. CT head: No acute intracranial abnormality. CXR: No acute cardiopulmonary findings. Ordered Studies 10/21/18 13:55 CT abd pelvis IV con only Stat CT angio chest PE protocol Stat CT head/brain wo con Stat Hospital Course (1) UTI (urinary tract infection): UTI H/O Interstitial cystitis To R/O Bacteremia --CT ABD:No evidence of pulmonary thromboembolic disease. No focal airspace consolidation, adenopathy or pleural effusion. No bowel obstruction or pneumop eritoneum. Wall thickening of the distal colon and rectum is suggestive of a nonspecific proctocolitis. Fluid-filled loops of bowel suggests associated diarrheal illness. Progressive hepatic metastatic disease with increased size of the neoplastic spiculated mesenteric lesion of the right midabdomen. Mild urothelial thickening about the right renal pelvis and collecting system. Correlate clinically to exclude infectious etiology. Additional findings as above. 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 Escalera as outpatient Plan to be started on radiation therapy as outpatient Hypernatremia--Resolved Likely secondary to dehydration Received D5 water sodium levels normalized Appreciate nephrology input Recurrent Syncope No arrhythmias on telemetry Likely Vasovagal from dehydration due to chronic diarrhea Consider Cardiology evaluation as outpatient Atrial Fibrillation Continue Metoprolol, Xarelto Hypokalemia: Likely GI loses Replace electrolytes as needed HTN: Variable BP On Metoprolol, Tamsulosin Monitor and adjust meds as needed DVT Px: On Xarelto Code Status Full Code Disposition: Plan to discharge home with Home Health Total Time Total Time Spent Total Time Spent (In Minutes): 34 minutes Total Time Includes: Examination of the Patient, Discharge Planning, Medication Reconciliation, Communication With Other Providers and Other Discharge Plan Discharge Items Patient Disposition: Home - Home Health Services Reason For Visit: UTI SYNCOPE LEUKOCYTOSIS COLITIS Discharge Diagnosis: Urinary tract infection Proctocolitis Hypernatremia Recurrent syncope Discharge Goals: Decrease discomfort, Improve disease control and Improve function Activity: Resume your previous activity Exercise/Sports: Gradually increase as tolerated Non-emergency contact: Primary Care Provider, Auxiliary Equipment Operator and Oncologist Call non-emergency contact if: you have any medication questions, your symptoms worsen, your pain is not controlled, your pain is worsening, your pain is unusual for you, your pain is concerning for you and you have a fever Follow-up/Referrals: Kerri Schulz PA-C [Primary Care Provider] - Diet: Heart Healthy Addtl Provider Instructions: Follow-up with your primary care physician Dr. Schulz in 1 week Follow-up with your oncologist as scheduled Consider following with your law writer for evaluation of recurrent syncope as outpatient Your final blood cultures are pending pending at the time of discharge. Please follow-up with your primary care physician for results Complete antibiotic course as prescribed Seek immediate medical attention if your symptoms reoccur or worsen Prescriptions: New cephalexin 500 mg Capsule 500 mg PO BID Qty: 4 RF: 0 Lactobacillus acidoph-L.bulgar [Floranex] 1 million cell Tablet 4 tab PO QIDM 7 Days Qty: 120 RF: 0 Continued metoprolol succinate 25 mg tablet extended release 24 hr 25 mg PO QPM RF: 0 cholecalciferol (vitamin D3) [Vitamin D3] 2,000 unit Capsule 2,000 units PO QAM RF: 0 Xarelto 20 mg tablet 20 mg PO HS RF: 0 tamsulosin 0.4 mg capsule 0.4 mg PO HS RF: 0 albuterol sulfate 90 mcg/actuation aerosol powdr breath activated 2 puffs INH Q6H PRN (Reason: shortness of breath or wheezing) Qty: 1 RF: 1 Changed docusate sodium 100 mg Capsule 100 mg PO DAILY PRN (Reason: Constipation) Qty: 0 RF: 0 Stand-Alone Forms: [facility] Discharge Orders: Discharge Order (Routine); Ordered 10/27/18 Ordered By: Marlon Witt Admission Data Admit Date/Time: 10/21/18 17:00 Attending Provider: Marlon Witt Admit Provider: Tunde Lopez Primary Care Provider: Kerri Schulz Other Providers: Comfort Calloway ; Reynaldo Gutierres ; Lenard Lee ; Tunde Lopez ; Salvador Viramontes Service: Telemetry Medical Other Interventions: Discharge Summary Assessment (RN) Last Done: 10/27/18 13:10 DC Date/Time DO NOT enter until pt leaves facility: 10/27/18 13:49
== END 2018-10-27 13:49 | disposition home health service (06) | DRG 690 ==
LOC: ED 13:44 → 2S 17:00 → SUATTDRO 17:00 → 2S 18:23

== ENCOUNTER 2018-11-09 18:25 | Inpatient (IN) ==
[2018-11-09 19:37] LABS: Basophils # (auto) 0.08 K/uL (0-0.2); Basophils % (auto) 0.9 %; Eosinophils % (auto) 1.1 %; Hematocrit (blood only) 38.2 % (37-47); Hemoglobin 12.3 g/dL (12.0-16.0); Immature Granulocytes # (auto) 0.01 K/uL (0.00-0.02); Immature Granulocytes % (auto) 0.1 %; Lymphocytes # (auto) 1.92 K/uL (1.2-3.4); Mean Corpuscular Hgb Conc 32.2 g/dL (32-36); Mean Corpuscular Volume 86.6 fL (80-100); Mean Platelet Volume 11.1 fL (7.4-10.4); Monocytes # (auto) 0.55 K/uL (0.11-0.59); Monocytes % (auto) 6.3 %; Neutrophils # (auto) 6.08 K/uL (1.4-6.5); Neutrophils % (auto) 69.6 %; Platelet Count 413 K/uL (130-400); RDW Coefficient of Variation 16.9 % (11.5-14.5); RDW Standard Deviation 53.7 fL (36.4-46.3); Red Blood Count 4.41 M/uL (4.2-5.4); White Blood Count 8.74 K/uL (4.8-10.8)
--- NOTE | 2018-11-09 19:39 | XRay Report ---
XR chest 1V portable CLINICAL HISTORY: 73 years-old Female presenting with Chest Pain, history of metastatic disease. TECHNIQUE: Portable upright AP view of the chest was obtained. COMPARISON: 10/21/2018. FINDINGS: Atherosclerosis of the aortic arch. Cardiac silhouette enlarged. Enlargement of the main pulmonary ar jefferson. Lungs are hyperinflated. Minimal linear opacities at the left lung base as on prior exam. No pl eural effusion or pneumothorax. Osseous structures normal. Upper abdomen normal. IMPRESSION: 1. Cardiomegaly and pulmonary artery hypertension. No congestive change or volume overload. 2. Hyperinflation could suggest underlying emphysema or other obstructive lung disease. 3. Minimal left basilar atelectasis or scarring. Electronically signed by: Shailesh Espino M.D. 11/09/2018 7:38 PM
[2018-11-09 19:53] LABS: Alanine Aminotransferase 27 U/L (12-78); Albumin Level 3.4 gm/dl (3.4-5.0); Aspartate Aminotransferase 50 U/L (15-37); BUN Creatinine Ratio 8.5 (10-20); Blood Urea Nitrogen 8 mg/dl (7-18); Calcium 8.9 mg/dl (8.5-10.1); Carbon Dioxide 25 mmol/L (21-32); Chloride 107 mmol/L (98-107); Est GFR (African American) 73.5; Est GFR (Non-African American) 63.4; Glucose 121 mg/dl (70-99); Potassium 3.8 mmol/L (3.5-5.1); Sodium 140 mmol/L (136-145)
[2018-11-09 19:58] LABS: Albumin Globulin Ratio 0.8 (0.9-2); Alkaline Phosphatase 306 U/L (45-117); Bilirubin,Total 0.6 mg/dl (0.2-1); Creatine Kinase 59 U/L (26-192); Creatine Kinase MB < 1.0 ng/ml (0.5-3.6); Globulin 4.2 gm/dl (2.5-4.0); Total Protein 7.6 gm/dl (6.4-8.2); Troponin I < 0.015 ng/ml (0-0.045)
[2018-11-09] MEDS ORDERED: NITROGLYCERIN SL 0.4 MG/TAB TAB SL STA (20:04)
[2018-11-09] MEDS ORDERED: NITROGLYCERIN 2% OINTMENT 30GM TUBE EXT STA (20:27)
--- NOTE | 2018-11-09 21:55 | History & Physical Report ---
Date of Service November 09, 2018 Assessment & Plan (1) Shortness of breath: (2) Chest tightness: This is a 73 yr old F who has a significant PMH of carcinoid tumor of abdomen followed by Kamryn Pruett on xarelto, HTN, HLD, asthma, interstitial cystitis who presents to [facility] ED secondary to ROD with associated chest tightness x 2 weeks. In ED pt remained hemodynamically stable Her ECG was w/o evidence of ischemia and her troponin was WNL CXR w/o acute abnormality ? obstructive disease pattern also noted pulm htn CBC and CMP relatively unremarkable, electrolytes with in range, TSH okay Will rule out ACS but feel less likely ROD/chest tightness may be as result of her asthma vs obstructive lung disease vs pulm HTN or other cardiopulmonary abnormality admit to tele cycle troponin and ecg obtain echocardiogram (last done 04/1819 Grade 1 DD, AV sclerosis) consult cardiology follow labs change metoprolol to tartrate 12.5mg bid (3) Numbness and tingling in both hands: ? etiology electrolytes okay TSH WNL check b12 level (4) Atrial fibrillation: continue metoprolol for rate control anticoagulated with xarelto (5) Hypertension: discontinue metoprolol succinate due to family feeling like her blood pressure drops to low Switch to metoprolol tartrate 12.5mg bid and monitor (6) Asthma: has albuterol prn has tried with mild relief if above complaints found to be noncardiac consider adding trial of inhaled corticosteroid (7) Metastatic carcinoid tumor: continue follow up with Dr. Galindo monthly sandostatin injections to receive xrt tx next month per daughter (8) DVT prophylaxis: Xarelto, scd/teds Disposition: admit to telemetry Follow up: PCP Kerri Schulz PA-C upon discharge Patient was seen and examined in collaboration with Dr. Noguera, please see addendum Starting 11/10/18 patient will be under the care of Dr. Witt History of Present Illness Chief Complaint: SOB x 1-2 weeks with associated chest tightness Primary Care Provider: Kerri Schulz This is a 73 yr old F who has a significant PMH of carcinoid tumor of abdomen followed by Kamryn Pruett on xarelto, HTN, HLD, asthma, intersitial cystitis who presents to [facility] ED secondary to ROD with associated chest tightness x 2 weeks. Patient recently confined 10/21-10/27 2/2 syncope. Work up + for UTI tx with keflex, hypernatremia due to dehydration, felt secondary to vasovagal event in setting of chronic diarrhea due to carcinoid. Since discharge patient has been having increased ROD with chest tightness that comes and goes. Today has become more persistent. Complains of SOB with little activity or walking. Further complains of numbness to hands/fingers b/l. Feels sx worse at night after taking metoprolol and xarelto. Also notes her blood pressure drops significantly after taking metoprolol. Denies any f/c/s, dizziness, lightheaded, syncope since discharge, overt chest pain, sob at rest, cough, hemoptysis, palpitations, abdominal pain, dysuria, increased urg/freq with urination, hematuria, melena. Complains of intermittent nausea and diarrhea associated with carcinoid. Daughter at bedside states she is to begin radiation therapy for carcinoid of liver due to enlarging tumors. Denies PND or orthopnea, edema, weight gain, change in appetite. Allergies Allergy/AdvReac Type Severity Reaction Status Date / Time nut - unspecified Allergy Severe throat Verified 11/09/18 19:52 swelling aspirin Allergy Intermediate "ASTHMA" Verified 11/09/18 19:52 celecoxib Allergy Intermediate "ASTHMA Verified 11/09/18 19:52 ATTACK" codeine Allergy Intermediate "FACE Verified 11/09/18 19:52 PUFFS UP" morphine Allergy Intermediate "FACE Verified 11/09/18 19:52 PUFFS UP" latex Allergy Mild RASH Verified 11/09/18 19:52 caffeine AdvReac Intermediate HEADACHE Verified 11/09/18 19:52 midazolam AdvReac Intermediate extreme Verified 11/09/18 19:52 anxiety fentanyl AdvReac Mild DELIRIUM Verified 11/09/18 19:52 lorazepam AdvReac Mild ANXIOUS Verified 11/09/18 19:52 Home Medications Home Medications Medication Instructions Recorded Confirmed Type Xarelto 20 mg PO HS 04/09/18 11/09/18 History cholecalciferol (vitamin D3) 2,000 units PO QAM 04/09/18 11/09/18 History [Vitamin D3] metoprolol succinate 25 mg PO QPM 04/09/18 11/09/18 History albuterol sulfate 2 puffs INH Q6H PRN #1 ea 08/15/18 11/09/18 Rx docusate sodium 100 mg PO DAILY PRN #0 cap 10/27/18 11/09/18 Rx Past Med/Surg History Medical History Liver cancer (Chronic) Hemorrhoids (Chronic) Perirectal abscess (Chronic) Asthma (Chronic) NO INHALER Atrial fibrillation (Chronic) On Xarelto Osteoarthritis (Chronic) Hyperlipidemia (Chronic) BORDERLINE Anal fistula (Chronic) Interstitial cystitis (Chronic) Chronic anticoagulation (Chronic) Coronary vasospasm (Chronic) 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 [facility], Dr. Escalera. Receiving Sandostatin injection monthly. Hypertension (Chronic) Proctocolitis UTI (urinary tract infection) Surgical History History of cardiac cath (Chronic) [facility] 2016; "Normal coronary arteries." History of tooth extraction (Chronic) History of liver biopsy (Chronic) History of dilatation and curettage (Chronic) S/P appendectomy (Chronic) History of tonsillectomy and adenoidectomy (Chronic) S/P cholecystectomy (Chronic) History of hysterectomy (Chronic) Family History Sister Family history of diabetes mellitus Social History Preferred Language: Khmer Communication Ability: Effective Staff Mine Warfare Officer Required: No Beliefs That Will Affect Care: None marital status: Current Living Situation: Spouse Feels Safe at Home: Yes Smoking Status: Never smoker Second Hand Exposure: Yes ; Hx Alcohol Use: No Hx Substance Use: No Review of Systems Review of Systems: All systems reviewed & are unremarkable except as noted in HPI & below Physical Exam Physical Exam: please refer to Dr. Noguera addendum for PE findings Results & Data Vital Signs (Past 12 Hours) Vital Signs Temp Pulse Pulse Resp BP BP Pulse Ox 11/09/18 20:25 83 17 108/74 95 11/09/18 19:30 58 L 22 140/76 11/09/18 19:13 64 14 11/09/18 18:55 71 17 111/90 11/09/18 18:28 37.4 C 73 20 150/87 H 99 Laboratory Results Short CBC 11/09/18 Range/Units 19:20 WBC 8.74 (4.8-10.8) K/uL Hgb 12.3 (12.0-16.0) g/dL Hct 38.2 (37-47) % Plt Count 413 H (130-400) K/uL BMP 11/09/18 19:20 Sodium 140 Potassium 3.8 Chloride 107 Carbon Dioxide 25 BUN 8 Creatinine 0.90 Glucose 121 H Calcium 8.9 Cardiac Enzymes 11/09/18 11/09/18 Range/Units 19:20 19:20 Total Creatine Kinase 59 (26-192) U/L CK-MB (CK-2) < 1.0 (0.5-3.6) ng/ml Troponin I < 0.015 (0-0.045) ng/ml Liver Function 11/09/18 Range/Units 19:20 Total Bilirubin 0.6 (0.2-1) mg/dl AST 50 H (15-37) U/L ALT 27 (12-78) U/L Alkaline Phosphatase 306 H (45-117) U/L Albumin 3.4 (3.4-5.0) gm/dl Diagnostic Findings CXR: IMPRESSION: 1. Cardiomegaly and pulmonary artery hypertension. No congestive change or volume overload. 2. Hyperinflation could suggest underlying emphysema or other obstructive lung disease. 3. Minimal left basilar atelectasis or scarring. Medications Administered Discontinued Medications Nitroglycerin (Nitrostat) 0.4 mg SL NOW STA Stop: 11/09/18 20:05 Last Admin: 11/09/18 20:07 Dose: 0.4 mg Documented by: [id number] Nitroglycerin (Nitro-Bid 2%) 1 inch EXT NOW STA Stop: 11/09/18 20:28 Last Admin: 11/09/18 21:03 Dose: 1 inch Documented by: [id number] Code Status & VTE Plan Code Status Full Code VTE Prophylaxis Plan VTE Prophylaxis will be ordered: Yes Supervising Physician Co-Signing Physician Notes I, Dr. Tunde Noguera, have seen and examined the patient with physician political science research assistant and agree with the assessment and plan and would like to comment This is a patient with history of carcinoid tumor (liver cancer) who follows with [facility] Hematology[facility]Oncology who was discharged on 10/27/18 and returns to the ED on 11/09/18 with complaints of increased dyspnea on exertion and associated with chest pressure. Patient also reports paresthesia s of the upper extremities. On exam General: patient laying in bed , no acute distress Skin: red complexion of the face which patient reports is chronic secondary to carcinoid tumor Abdomen: soft, nontender, positive bowel sounds Lungs: clear to auscultation bilaterally Heart: regular rate and rhythm Extremities: no edema Neuro: no motor deficits or upper or lower extremities; no acute paresthesia at time of the exam Main goal at this time is rule out acute cardiac etiologies for shortness of br eath with chest pressure, trend troponins, patient had echocardiogram in March 2018 but will ask specifically to assess whether any pulmonary artery hypertension or elevated right ventricular pressure. Because patient also expressing low blood pressures after night time dose of home metoprolol 25 mg and so will change to metoprolol 12.5 mg BID for now In regards to the Paresthesias, check TSH and B12 levels. Patient will need to continue outpatient follow up for management of carcinoid tumor with [facility] Hematology/Oncology Agree with assessment and plan for other health issues as described by physician political science research assistant My colleague Dr. Witt will be following the patient starting on 11/10/18
[2018-11-09] MEDS ORDERED: ALBUTEROL 0.083% NEBU SOLN 3 ML VIAL NEB PRN (22:28)
[2018-11-09] MEDS ORDERED: NITROGLYCERIN SL 0.4 MG/TAB TAB SL PRN (22:28)
[2018-11-09] MEDS ORDERED: ALUMINUM/MAGNESIUM SUSP 30 ML UDC PO PRN (22:28)
[2018-11-09] MEDS ORDERED: DOCUSATE SODIUM 100 MG CAP PO PRN (22:28)
[2018-11-09] MEDS ORDERED: POLYETHYLENE (MIRALAX) 17 GM PACK PO PRN (22:28)
[2018-11-09] MEDS ORDERED: MAGNESIUM HYDROXIDE SUSP 30 ML UDC PO PRN (22:28)
[2018-11-09] MEDS ORDERED: ACETAMINOPHEN 325 MG TAB PO PRN (22:28)
[2018-11-09] MEDS: RIVAROXABAN 20 MG TAB PO SCH (23:12)
[2018-11-09] MEDS: METOPROLOL TARTRATE 25 MG TAB PO SCH (23:12)
[2018-11-10] MEDS ORDERED: PNEUMOCOCCAL POLYSACCHARIDES 25 MCG/0.5 ML VIAL/SYR IM ONE (00:30)
[2018-11-10] MEDS ORDERED: PNEUMOCOCCAL ADMINISTRATION CHARGE ONE (00:30)
[2018-11-10] MEDS: ONDANSETRON INJ 2 MG/ML 2 ML VIAL IV PRN (02:11)
[2018-11-10 07:24] LABS: Hematocrit (blood only) 32.8 % (37-47); Hemoglobin 10.5 g/dL (12.0-16.0); Mean Platelet Volume 10.3 fL (7.4-10.4); Platelet Count 370 K/uL (130-400); RDW Coefficient of Variation 16.9 % (11.5-14.5); Red Blood Count 3.77 M/uL (4.2-5.4); White Blood Count 6.54 K/uL (4.8-10.8)
[2018-11-10 08:02] LABS: BUN Creatinine Ratio 8.8 (10-20); Blood Urea Nitrogen 8 mg/dl (7-18); Calcium 8.9 mg/dl (8.5-10.1); Carbon Dioxide 26 mmol/L (21-32); Chloride 110 mmol/L (98-107); Creatinine Clr Calc Pharmacy 46.5 ml/min; Est GFR (African American) 70.7; Glucose 108 mg/dl (70-99); Potassium 3.6 mmol/L (3.5-5.1); Sodium 144 mmol/L (136-145)
[2018-11-10 08:06] LABS: Troponin I < 0.015 ng/ml (0-0.045)
[2018-11-10] MEDS ORDERED: METOPROLOL TARTRATE 1 MG/ML VIAL IV ONE (09:27)
[2018-11-10] MEDS ORDERED: ATROPINE SULFATE 0.1 MG/ML 10ML SYR IV ONE (09:27)
[2018-11-10] MEDS ORDERED: DOBUTamine HCL 12.5 MG/ML 20 ML VIAL IV ONE (09:28)
[2018-11-10] MEDS: METOPROLOL TARTRATE 25 MG TAB PO SCH (12:53)
--- NOTE | 2018-11-10 16:02 | Consultation Report ---
DATE OF CONSULTATION: 11/10/2018 INPATIENT CARDIOLOGY CONSULTATION CONSULTATION REQUESTED BY: Malu Ivory PA-C. REASON FOR CONSULTATION: Chest pain. HISTORY OF PRESENT ILLNESS: Mrs. Garzon is a very pleasant 73-year-old woman who presented to [facility] on 11/09/2018 with complaints of chest tightness. The patient was recently admitted at the end of September after she had a syncopal spell and was found to have a UTI and hypernatremia in the setting of a vasovagal event. Since discharge, she states that she has not been feeling well. She has been having chest tightness and dyspnea with exertion that seems to come and go. She describes the tightness as a pressure sensation in the middle of her chest that can occur either at rest or with exertion. It sometimes can radiate up to her left shoulder, but she denies any associated shortness of breath or diaphoresis with the discomfort. Again, it can happen either at rest or with exertion. She notes that she has been a little bit more dyspneic with exertion. She presented to the Emergency Department, her initial workup was unremarkable and she was admitted to telemetry. She had no further chest discomfort overnight, and on 11/10/2018, she underwent a stress testing. Of note, the patient states that this pain is very similar to the pain she had in 2016, at which time she underwent a cardiac catheterization with Dr. Candelaria, which showed normal coronary arteries. PAST SURGICAL HISTORY: 1. Cardiac cath in 2016 with normal coronary arteries. 2. Liver biopsy. 3. Dental extractions. 4. D and C. 5. Appendectomy. 6. Tonsil and adenoidectomy. 7. Hysterectomy 8. Cholecystectomy. MEDICAL ILLNESSES: 1. 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 She is scheduled to undergo radiation treatment in the next upcoming weeks. 2. Paroxysmal atrial fibrillation, on chronic Xarelto anticoagulation. 3. Perirectal abscess. 4. Asthma. 5. History of coronary vasospasm. 6. Hypertension. 7. UTI. FAMILY HISTORY: Remarkable for 2 family members, brother and father both had coronary artery disease in their 40s. SOCIAL HISTORY: The patient denies any alcohol, tobacco or recreational drug use. She is and lives at home with her who does unfortunately smoke. REVIEW OF SYSTEMS: As per HPI, all other review of systems is reviewed and negative at this time. ALLERGIES: 1. MORPHINE. 2. CODEINE. 3. LATEX. 4. NSAIDS. 5. CAFFEINE. 6. ALCOHOL. 7. FURACIN. MEDICATIONS AN OUTPATIENT: 1. Metoprolol succinate 25 mg daily. 2. Xarelto 20 mg at bedtime. 3. Colace. PHYSICAL EXAMINATION: VITAL SIGNS: Temperature 36.5, pulse 58, respiratory rate 12, blood pressure 155/83. GENERAL: Awake, alert, oriented x3, in no acute distress. HEENT: Normocephalic, atraumatic. Pupils equal, round, reactive to light and accommodation. Extraocular muscles intact. Anicteric sclerae. Moist mucous membranes. NECK: No JVD, no bruit. CARDIOVASCULAR: Regular. Positive S4. Normal S1 and S2. No S3. No murmurs or rubs. PULMONARY: Clear to auscultation bilaterally. No rales, rhonchi, or wheezing. ABDOMEN: Bowel sounds x4, soft. No rebound, guarding, or tenderness. No organomegaly. EXTREMITIES: No clubbing, cyanosis or edema. +2 pedal pulses bilaterally. SKIN: Warm and dry. TEST RESULTS: A 2D echocardiogram was read as no significant change compared to previous study of 04/10/2018, normal LV chamber size with mild concentric LVH, normal LV systolic function, EF 55%-60%, no segmental left ventricular wall motion abnormalities are noted, grade 2 diastolic dysfunction, mild aortic valve sclerosis without stenosis, mild mitral regurgitation. Inadequate TR jet to calculate right ventricular systolic pressure. Dobutamine stress echocardiogram was read as nonischemic, no arrhythmias, normal heart rate and blood pressure response to dobutamine. Chest pain was not reproduced at the target heart rate. IMPRESSION: 1. Chest pain with nonischemic Dobutamine stress echocardiogram. 2. Normal coronary arteries by cardiac catheterization in 2016. 3. Questionable history of coronary vasospasm. 4. Carcinoid tumor of the intestine with liver metastasis. 5. Paroxysmal atrial fibrillation, on chronic Xarelto anticoagulation. RECOMMENDATIONS: It was my pleasure to see Mrs. Garzon in consultation today. From a cardiac standpoint, she was counseled given the fact that her stress test was nonischemic and that her chest pain was not reproduced along with the fact that she had normal coronary arteries only 3 years ago, I do not believe that her chest pain represents an ischemic event. She very well could have had coronary vasospasm; however, she is on chronic beta khanh. Consideration should also be given to possible esophageal spasm, but no further cardiac workup is necessary at this time. No further testing will be scheduled. No followup appointment will be scheduled with us, but follow up with her primary senior bioinformatics specialist through [facility] for her paroxysmal AFib.
--- NOTE | 2018-11-10 16:53 | Hospitalist Progress Note ---
Date of Service November 10, 2018 Assessment & Plan (1) Shortness of breath: (2) Chest tightness: Patient is a 73 yr old female with H/O carcinoid tumor of abdomen followed by Kamryn Pruett on xarelto, HTN, HLD, asthma, interstitial cystitis who presents to [facility] ED secondary to ROD with associated chest tightness x 2 weeks. Chest Pain Normal coronary arteries by cardiac catheterization in 2016 Troponin X 3: Negative CXR:Cardiomegaly and pulmonary artery hypertension. No congestive change or volume overload. Hyperinflation could suggest underlying emphysema or other obstructive lung disease. Minimal left basilar atelectasis or scarring. EKG: Nonspecific T wave changes Stress Test: Nonischemic dobutamine stress echocardiogram. No arrhythmias. Chest pain was not reproduced at target heart rate. Normal heart rate and pressure response to exercise. TSH:wnl ACS ruled out Appreciate Cardiology Input (3) Numbness and tingling in both hands: Unclear etiology TSH, b12 level: Normal Symptoms resolved (4) Atrial fibrillation: H/O P.afib Symptomatic Bradycardia metoprolol held Pace pads at bedside On xarelto for anticoagulation Cardiology on board Monitor on Tele (5) Hypertension: BP Variable Metoprolol succinate held due to bradycardia monitor (6) Asthma: on albuterol PRN No wheezing on exam Consider Maintenance inhaler upon discharge (7) Metastatic carcinoid tumor: continue follow up with Dr. 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 no other complaints Review of Systems Review of Systems: All systems reviewed & are unremarkable except as noted in HPI & below Physical Exam Physical Exam: Physical Exam: Vitals signs as noted above General Appearance:Moderately built and nourished, no apparent distress Head: normocephalic, Atraumatic Eyes: normal inspection, EOMI Neck: supple, Trachea midline Respiratory/Chest: Normal breath sounds, CTA Cardiovascular: S1, S2, No murmur, +Bradycardia Abdomen/GI:Soft, Non tender, Bowel sounds present Extremities/Musculoskelatal:normal inspection, Trace LE edema Neurologic/Psych:AAOX3, grossly no focal neurological deficits Skin: normal color, warm Results & Data Vital Signs (Past 12 Hours) Vital Signs Temp Pulse Pulse Resp BP Pulse Ox 11/10/18 11:24 36.5 C 58 L 18 155/83 H 98 11/10/18 08:00 57 L 11/10/18 07:44 36.9 C 57 L 18 123/68 97 Laboratory Results Short CBC 11/09/18 11/10/18 Range/Units 19:20 07:07 WBC 8.74 6.54 (4.8-10.8) K/uL Hgb 12.3 10.5 L (12.0-16.0) g/dL Hct 38.2 32.8 L (37-47) % Plt Count 413 H 370 (130-400) K/uL BMP 11/09/18 11/10/18 19:20 07:07 Sodium 140 144 Potassium 3.8 3.6 Chloride 107 110 H Carbon Dioxide 25 26 BUN 8 8 Creatinine 0.90 0.93 Glucose 121 H 108 H Calcium 8.9 8.9 Cardiac Enzymes 11/09/18 11/09/18 11/10/18 Range/Units 19:20 19:20 00:28 Total Creatine Kinase 59 (26-192) U/L CK-MB (CK-2) < 1.0 (0.5-3.6) ng/ml Troponin I < 0.015 < 0.015 (0-0.045) ng/ml 11/10/18 Range/Units 07:07 Total Creatine Kinase (26-192) U/L CK-MB (CK-2) (0.5-3.6) ng/ml Troponin I < 0.015 (0-0.045) ng/ml Liver Function 11/09/18 Range/Units 19:20 Total Bilirubin 0.6 (0.2-1) mg/dl AST 50 H (15-37) U/L ALT 27 (12-78) U/L Alkaline Phosphatase 306 H (45-117) U/L Albumin 3.4 (3.4-5.0) gm/dl Diagnostic Findings CXR: 1. Cardiomegaly and pulmonary artery hypertension. No congestive change or volume overload. 2. Hyperinflation could suggest underlying emphysema or other obstructive lung disease. 3. Minimal left basilar atelectasis or scarring.
[2018-11-10] MEDS: RIVAROXABAN 20 MG TAB PO SCH (21:22)
[2018-11-11 06:39] LABS: BUN Creatinine Ratio 19.5 (10-20); Calcium 8.2 mg/dl (8.5-10.1); Creatinine Clr Calc Pharmacy 62.7 ml/min; Est GFR (African American) 100.1; Est GFR (Non-African American) 86.4; Magnesium 2.2 mg/dl (1.8-2.4); Potassium 3.6 mmol/L (3.5-5.1)
[2018-11-11] MEDS: ONDANSETRON INJ 2 MG/ML 2 ML VIAL IV PRN (09:09)
[2018-11-11] MEDS ORDERED: LORATADINE 10 MG TAB PO ONE (12:16)
[2018-11-11] MEDS ORDERED: LORATADINE 10 MG TAB PO PRN (12:16)
--- NOTE | 2018-11-11 12:24 | Cardiology Progress Note ---
Date of Service November 11, 2018 Assessment & Plan (1) Bradycardia: (2) Metastatic carcinoid tumor: The patient's heart rates have improved after the metoprolol was discontinued. She has been up walking in the hallway and has no current cardiac complaints. Interestingly, her symptoms of flushing which may be related to the carcinoid tumor have stopped following the discontinuation of metoprolol. Subjective The patient has no cardiac complaints. She has been up walking the mireles. Review of Systems Review of Systems: All systems reviewed & are unremarkable except as noted in HPI & below Nothing additional Physical Exam Physical Exam: General: no acute distress and stated age Head: normocephalic, no masses, lesions, tenderness or abnormalities Eyes: conjunctiva are pink and non-injected, sclera clear Neck: supple, no adenopathy, no bruits, normal jugular venous pulse, no hepatojugular reflux Chest: normal shape and normal respiratory effort Lungs: clear to auscultation and percussion Cardiac Exam: - regular rate & rhythm, no murmurs gallops or rubs - normal S1, normal S2 Pulses: 2(+) throughout Abdomen: abdomen soft, non-tender, no abnormal masses and no hepatosplenomegaly Musculoskeletal: no gait disturbance, no joint inflammation, no deforming arthritis Extremities: no edema and no cyanosis Neuro: grossly normal exam Results & Data Vital Signs (Past 12 Hours) Vital Signs Temp Pulse Pulse Resp BP BP Pulse Ox 11/11/18 11:39 36.9 C 57 L 18 117/59 L 96 11/11/18 07:32 36.5 C 47 L 16 112/66 98 11/11/18 04:37 36.6 C 76 16 108/66 98 Laboratory Results Laboratory Results - last 24 hr 11/11/18 05:47 Sodium 140 Potassium 3.6 Chloride 107 Carbon Dioxide 27 Anion Gap 6.0 BUN 13 D Creatinine 0.69 Est Cr Clr Drug Dosing 62.7 Est GFR ( Amer) 100.1 Est GFR (Non-Af Amer) 86.4 BUN/Creatinine Ratio 19.5 Glucose 94 Calcium 8.2 L Magnesium 2.2 Medications Administered Current Inpatient Medications Acetaminophen (Tylenol) 650 mg PO Q4H PRN PRN Reason: Pain or Fever Stop: 12/09/18 22:27 Last Admin: 11/10/18 02:15 Dose: 650 mg Documented by: Al Hydrox/Mg Hydrox/Simethicone (Maalox) 15 ml PO Q4H PRN PRN Reason: Dyspepsia Stop: 12/09/18 22:27 Albuterol (Ventolin 0.083% 2.5mg/3ml) 2.5 mg NEB Q6R PRN PRN Reason: sob/wheezing Stop: 12/09/18 22:27 Docusate Sodium (Colace) 100 mg PO DAILY PRN PRN Reason: Constipation Stop: 12/09/18 22:27 Loratadine (Claritin) 10 mg PO QAM PRN PRN Reason: Allergy Symptoms Stop: 12/12/18 08:59 Magnesium Hydroxide (Milk Of Magnesia) 30 ml PO Q12H PRN PRN Reason: Constipation Stop: 12/09/18 22:27 Metoprolol Tartrate (Lopressor) 12.5 mg PO BID [facility] Stop: 12/09/18 22:27 Last Admin: 11/10/18 12:53 Dose: 12.5 mg Documented by: Nitroglycerin (Nitrostat) 0.4 mg SL UD PRN PRN Reason: Chest Pain Stop: 12/09/18 22:27 Ondansetron HCl (Zofran) 4 mg IV Q6H PRN PRN Reason: Nausea Stop: 12/09/18 22:27 Last Admin: 11/11/18 09:09 Dose: 4 mg Documented by: Polyethylene Glycol (Miralax Powder Packet) 17 gm PO DAILY PRN PRN Reason: Constipation Stop: 12/09/18 22:27 Rivaroxaban (Xarelto) 20 mg PO HS [facility] Stop: 12/10/18 20:59 Last Admin: 11/10/18 21:22 Dose: 20 mg Documented by:
--- NOTE | 2018-11-11 16:20 | Hospitalist Progress Note ---
Date of Service November 11, 2018 Assessment & Plan (1) Shortness of breath: (2) Chest tightness: Patient is a 73 yr old female with H/O carcinoid tumor of abdomen followed by Kamryn Pruett on xarelto, HTN, HLD, asthma, interstitial cystitis who presents to [facility] ED secondary to ROD with associated chest tightness x 2 weeks. Chest Pain Normal coronary arteries by cardiac catheterization in 2016 Troponin X 3: Negative CXR:Cardiomegaly and pulmonary artery hypertension. No congestive change or volume overload. Hyperinflation could suggest underlying emphysema or other obstructive lung disease. Minimal left basilar atelectasis or scarring. EKG: Nonspecific T wave changes Stress Test: Nonischemic dobutamine stress echocardiogram. No arrhythmias. Chest pain was not reproduced at target heart rate. Normal heart rate and pressure response to exercise. TSH:wnl ACS ruled out Appreciate Cardiology Input Chest pain resolved (3) Numbness and tingling in both hands: Unclear etiology TSH, b12 level: Normal Symptoms resolved (4) Atrial fibrillation: H/O P.afib Symptomatic Bradycardia metoprolol discontinued as per cardiology recommendations On xarelto for anticoagulation Appreciate cardiology input No significant pauses on telemetry Needs ZIO patch and cardiology follow-up as outpatient Advised patient to seek immediate medical attention if symptoms recur, patient agrees with the plan (5) Hypertension: Stable Metoprolol discontinued due to bradycardia monitor (6) Asthma: on albuterol PRN No wheezing on exam (7) Metastatic carcinoid tumor: continue follow up with Dr. Galindo monthly Sandostatin injections Planned for Radiation therapy next month per family (8) DVT prophylaxis: On Xarelto Code Status Full Code Disposition: Monitor on telemetry Subjective Patient seen and examined at bedside She feels a lot better after discontinuing metoprolol No significant pauses on telemetry Ambulated in hallways with no issues Discussed with cardiology today Denies any chest pain, shortness of breath, dizziness, nausea, abdominal pain Family at bedside Review of Systems Review of Systems: All systems reviewed & are unremarkable except as noted in HPI & below Physical Exam Physical Exam: Physical Exam: Vitals signs as noted above General Appearance:Moderately built and nourished, no apparent distress Head: normocephalic, Atraumatic Eyes: normal inspection, EOMI Neck: supple, Trachea midline Respiratory/Chest: Normal breath sounds, CTA Cardiovascular: S1, S2, No murmur, +Bradycardia Abdomen/GI:Soft, Non tender, Bowel sounds present Extremities/Musculoskelatal:normal inspection, Trace LE edema Neurologic/Psych:AAOX3, grossly no focal neurological deficits Skin: normal color, warm Results & Data Vital Signs (Past 12 Hours) Vital Signs Temp Pulse Pulse Resp BP BP Pulse Ox 11/11/18 15:51 36.7 C 50 L 18 111/61 97 11/11/18 11:39 36.9 C 57 L 18 117/59 L 96 11/11/18 07:32 36.5 C 47 L 16 112/66 98 11/11/18 04:37 36.6 C 76 16 108/66 98 Laboratory Results [facility] 11/11/18 05:47 Sodium 140 Potassium 3.6 Chloride 107 Carbon Dioxide 27 BUN 13 D Creatinine 0.69 Glucose 94 Calcium 8.2 L
--- NOTE | 2018-11-11 16:29 | Discharge Summary ---
Date of Service November 11, 2018 Admission HPI Per Admitting Provider This is a 73 yr old F who has a significant PMH of carcinoid tumor of abdomen followed by Kamryn Pruett on xarelto, HTN, HLD, asthma, intersitial cystitis who presents to [facility] ED secondary to ROD with associated chest tightness x 2 weeks. Patient recently confined 10/21-10/27 2/2 syncope. Work up + for UTI tx with keflex, hypernatremia due to dehydration, felt secondary to vasovagal event in setting of chronic diarrhea due to carcinoid. Since discharge patient has been having increased ROD with chest tightness that comes and goes. Today has become more persistent. Complains of SOB with little activity or walking. Further complains of numbness to hands/fingers b/l. Feels sx worse at night after taking metoprolol and xarelto. Also notes her blood pressure drops significantly after taking metoprolol. Denies any f/c/s, dizziness, lightheaded, syncope since discharge, overt chest pain, sob at rest, cough, hemoptysis, palpitations, abdominal pain, dysuria, increased urg/freq with urination, hematuria, melena. Complains of intermittent nausea and diarrhea associated with carcinoid. Daughter at bedside states she is to begin radiation therapy for carcinoid of liver due to enlarging tumors. Denies PND or orthopnea, edema, weight gain, change in appetite. Admission Exam Per Admitting Provider General: patient laying in bed , no acute distress Skin: red complexion of the face which patient reports is chronic secondary to carcinoid tumor Abdomen: soft, nontender, positive bowel sounds Lungs: clear to auscultation bilaterally Heart: regular rate and rhythm Extremities: no edema Neuro: no motor deficits or upper or lower extremities; no acute paresthesia at time of the exam Principal Diagnosis Chest pain Symptomatic bradycardia Discharge Data Allergies Allergy/AdvReac Type Severity Reaction Status Date / Time nut - unspecified Allergy Severe throat Verified 11/09/18 19:52 swelling aspirin Allergy Intermediate "ASTHMA" Verified 11/09/18 19:52 celecoxib Allergy Intermediate "ASTHMA Verified 11/09/18 19:52 ATTACK" codeine Allergy Intermediate "FACE Verified 11/09/18 19:52 PUFFS UP" morphine Allergy Intermediate "FACE Verified 11/09/18 19:52 PUFFS UP" latex Allergy Mild RASH Verified 11/09/18 19:52 caffeine AdvReac Intermediate HEADACHE Verified 11/09/18 19:52 midazolam AdvReac Intermediate extreme Verified 11/09/18 19:52 anxiety fentanyl AdvReac Mild DELIRIUM Verified 11/09/18 19:52 lorazepam AdvReac Mild ANXIOUS Verified 11/09/18 19:52 Consultations 11/09/18 20:33 ED Decision to Admit Stat 11/09/18 22:28 Consult Cardiology Routine Procedures Performed CXR: 1. Cardiomegaly and pulmonary artery hypertension. No congestive change or volume overload. 2. Hyperinflation could suggest underlying emphysema or other obstructive lung disease. 3. Minimal left basilar atelectasis or scarring. Dobutamine stress ECHO Nonischemic dobutamine stress echo No arrhythmias Normal heart rate and blood pressure response to exercise Chest pain was not reproduced at target heart rate. Hospital Course (1) Shortness of breath: (2) Chest tightness: Patient is a 73 yr old female with H/O carcinoid tumor of abdomen followed by Kamryn Cline on xarelto, HTN, HLD, asthma, interstitial cystitis who presents to [facility] ED secondary to ROD with associated chest tightness x 2 weeks. Chest Pain Normal coronary arteries by cardiac catheterization in 2016 Troponin X 3: Negative CXR:Cardiomegaly and pulmonary artery hypertension. No congestive change or volume overload. Hyperinflation could suggest underlying emphysema or other obstructive lung disease. Minimal left basilar atelectasis or scarring. EKG: Nonspecific T wave changes Stress Test: Nonischemic dobutamine stress echocardiogram. No arrhythmias. Chest pain was not reproduced at target heart rate. Normal heart rate and pressure response to exercise. TSH:wnl ACS ruled out Appreciate Cardiology Input Chest pain resolved (3) Numbness and tingling in both hands: Unclear etiology TSH, b12 level: Normal Symptoms resolved (4) Atrial fibrillation: H/O P.afib Symptomatic Bradycardia metoprolol discontinued as per cardiology recommendations On xarelto for anticoagulation Appreciate cardiology input No significant pauses on telemetry Needs ZIO patch and cardiology follow-up as outpatient Advised patient to seek immediate medical attention if symptoms recur, patient agrees with the plan (5) Hypertension: Stable Metoprolol discontinued due to bradycardia monitor (6) Asthma: on albuterol PRN No wheezing on exam (7) Metastatic carcinoid tumor: continue follow up with Dr. Galindo monthly Sandostatin injections Planned for Radiation therapy next month per family (8) DVT prophylaxis: On Xarelto Code Status Full Code Disposition: Monitor on telemetry Total Time Total Time Spent Total Time Spent (In Minutes): 37 minutes Total Time Includes: Examination of the Patient, Discharge Planning, Medication Reconciliation, Communication With Other Providers and Other Discharge Plan Discharge Items Patient Disposition: Home - Self-Care Reason For Visit: SOB, CHEST PAIN Discharge Diagnosis: Chest pain Symptomatic bradycardia Activity: Resume your previous activity Exercise/Sports: Gradually increase as tolerated Non-emergency contact: Primary Care Provider and Charge Entry Clerk Call non-emergency contact if: you have any medication questions, your symptoms worsen, your pain is not controlled, your pain is worsening, your pain is unusual for you and your pain is concerning for you Follow-up/Referrals: Kerri Schulz PA-C [Primary Care Provider] - Diet: Heart Healthy Addtl Attending Provider Instructions: Follow-up with your primary care physician Kerri Schulz PA-C in 1 week as advised Follow-up with your kettle chipper in 1 to 2 weeks as advised Consider following up with your assistant manager retail for further work-up/management of asthma Consider discussing with your kettle chipper regarding ZIO patch/Pacemaker and further work-up for bradycardia as outpatient Your metoprolol is discontinued as per cardiology recommendations Seek immediate medical attention if your symptoms reoccur or worsen Pending Studies at Discharge: No Stand-Alone Forms: Call Back Authorization, [facility], [facility] Medications and DC Order Prescriptions: Continued cholecalciferol (vitamin D3) [Vitamin D3] 2,000 unit Capsule 2,000 units PO QAM RF: 0 Xarelto 20 mg tablet 20 mg PO HS RF: 0 albuterol sulfate 90 mcg/actuation aerosol powdr breath activated 2 puffs INH Q6H PRN (Reason: shortness of breath or wheezing) Qty: 1 RF: 1 docusate sodium 100 mg Capsule 100 mg PO DAILY PRN (Reason: Constipation) Qty: 0 RF: 0 Discontinued metoprolol succinate 25 mg tablet extended release 24 hr 25 mg PO QPM RF: 0 Discharge Orders: Discharge Order (Routine); Ordered 11/11/18 Ordered By: Marlon Witt Admission Data Admit Date/Time: 11/10/18 16:50 Attending Provider: Marlon Witt Admit Provider: Tunde Noguera Primary Care Provider: Kerri Schulz Other Providers: Brayden Yepez ; Zoltan Castillo
--- NOTE | 2018-11-13 08:14 | Emergency Department Note ---
Entered by Angela Guillen acting as a scribe for History of Present Illness General Chief complaint: Chest Pain Stated complaint: SOB, CHEST TIGHTNESS, FEET/HANDS NUMB Time Seen by Provider: 11/09/18 19:09 Source: patient History of Present Illness Onset (ago): week(s) 2 Location: chest Severity: similar to prior episodes Pain Consistency: + other (Worsening) Maximum Pain Intensity: 4 Quality: + other (Heaviness) Relieved By: not by medication (Benadryl) Exacerbated By: + movement (Walking) Associated symptoms: + chest pain, + shortness of breath and + other (low blood pressure, hands and feet tingle); no nausea/vomiting Treatments prior to arrival: other (Benadryl) The patient is a 73 year old female presenting to the Emergency Department complaining of worsening chest pain starting 2 weeks ago. The patient reports that she has right sided chest pain that she describes as a heaviness. 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 She explains that she is short of breath and that walking around worsens her symptoms. She notes that her blood pressure has been suddenly dropping for the past few days. She adds that her hands and feet sometimes tingle and that this has been happening intermittently for the past few weeks. The patient reports that she does have a cardiac history as she has had 3 cardiac catheterizations with the most recent procedure being 2 years ago. 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 She explains that she is supposed to start receiving radiation next month for this. She notes that she was admitted 2 weeks ago to the hospital. 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 The patient reports that she sees Dr. Nona Tristan [place] PCP and that she has an appointment with her tomorrow. She denies nausea and vomiting. Home Medications Home Medications Medication Instructions Recorded Confirmed Type Xarelto 20 mg PO HS 04/09/18 11/09/18 History cholecalciferol (vitamin D3) 2,000 units PO QAM 04/09/18 11/09/18 History [Vitamin D3] albuterol sulfate 2 puffs INH Q6H PRN #1 ea 08/15/18 11/09/18 Rx docusate sodium 100 mg PO DAILY PRN #0 cap 10/27/18 11/09/18 Rx Allergies Allergy/AdvReac Type Severity Reaction Status Date / Time nut - unspecified Allergy Severe throat Verified 11/09/18 19:52 swelling aspirin Allergy Intermediate "ASTHMA" Verified 11/09/18 19:52 celecoxib Allergy Intermediate "ASTHMA Verified 11/09/18 19:52 ATTACK" codeine Allergy Intermediate "FACE Verified 11/09/18 19:52 PUFFS UP" morphine Allergy Intermediate "FACE Verified 11/09/18 19:52 PUFFS UP" latex Allergy Mild RASH Verified 11/09/18 19:52 caffeine AdvReac Intermediate HEADACHE Verified 11/09/18 19:52 midazolam AdvReac Intermediate extreme Verified 11/09/18 19:52 anxiety fentanyl AdvReac Mild DELIRIUM Verified 11/09/18 19:52 lorazepam AdvReac Mild ANXIOUS Verified 11/09/18 19:52 Past Med/Surg History Medical History Liver cancer (Chronic) Hemorrhoids (Chronic) Perirectal abscess (Chronic) Asthma (Chronic) NO INHALER Atrial fibrillation (Chronic) On Xarelto Osteoarthritis (Chronic) Hyperlipidemia (Chronic) BORDERLINE Anal fistula (Chronic) Interstitial cystitis (Chronic) Chronic anticoagulation (Chronic) Coronary vasospasm (Chronic) 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 [facility], Dr. Escalera. Receiving Sandostatin injection monthly. 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 and A total of 10 systems reviewed and were otherwise negative Physical Exam Vital Signs Vital Signs - 24 hr 11/09/18 18:28 11/09/18 18:55 11/09/18 19:13 Temperature 99.3 F Temperature Source Oral Sepsis Recent Fever Within 48 Hours No Sepsis New/Unexplained Change in Mental Status No Sepsis Action Taken by Nursing No Action Required Pulse Rate 73 71 64 Pulse Rate [Right Finger] Respiratory Rate 20 17 14 Respiratory Effort / Characteristics Non-Labored Spontaneous Respiratory Depth Normal Blood Pressure 150/87 H 111/90 Blood Pressure [Right Arm] Blood Pressure Mean 108 97 Blood Pressure Mean [Right Arm] Blood Pressure Position Sitting Pulse Oximetry 99 Oxygen Delivery Method Room Air 11/09/18 19:30 11/09/18 20:25 Temperature Temperature Source Sepsis Recent Fever Within 48 Hours Sepsis New/Unexplained Change in Mental Status Sepsis Action Taken by Nursing Pulse Rate 58 L Pulse Rate [Right Finger] 83 Respiratory Rate 22 17 Respiratory Effort / Characteristics Respiratory Depth Blood Pressure 140/76 Blood Pressure [Right Arm] 108/74 Blood Pressure Mean 97 Blood Pressure Mean [Right Arm] 85 Blood Pressure Position Pulse Oximetry 95 Oxygen Delivery Method GENERAL: Awake, alert, well-appearing, in no acute distress HENT: Normocephalic, atraumatic. Oropharynx unremarkable. EYES: Normal conjunctiva. Sclera non-icteric. NECK: Supple. No nuchal rigidity. FROM. No JVD. RESPIRATORY: Clear to auscultation. CARDIAC: Regular rate, normal rhythm. Extremities warm and well perfused. Pulses equal. ABDOMEN: Soft, non-distended. No tenderness to palpation. No rebound or guarding. No masses. RECTAL: Deferred. MUSCULOSKELETAL: Chest examination reveals no tenderness. The back is symmetrical on inspection without obvious abnormality. There is no CVA tenderness to palpation. No joint edema. LOWER EXTREMITIES: Calves are equal size bilaterally and non-tender. No edema. No discoloration. NEURO: Normal sensorium. No sensory or motor deficits noted. SKIN: No rash or jaundice noted. Course 1910: The patient was evaluated in room A11B, and a complete history and physical examination were performed. 2024: I reevaluated the patient at this time who reports that she is pain free after receiving nitro paste. 2031: I discussed the patients case with Dr. Marleni Hoffman hospitalist. He will evaluate the patient for further management. Consultations Consultation #1: I discussed the patients case with Dr. Marleni Hoffman hospitalist. He will evaluate the patient for further management. Time: 20:32 Administered Medications Discontinued Medications Acetaminophen (Tylenol) 650 mg PO Q4H PRN PRN Reason: Pain or Fever Stop: 12/09/18 22:27 Last Admin: 11/10/18 02:15 Dose: 650 mg Documented by: [id number] Atropine Sulfate (Atropine Sulfate) Confirm Administered Dose 2 mg IV .STK-MED ONE Stop: 11/10/18 09:28 Last Admin: 11/10/18 09:27 Dose: 0.5 mg Documented by: [id number] Dobutamine HCl (Dobutrex) Confirm Administered Dose 250 mg IV .STK-MED ONE Stop: 11/10/18 09:29 Last Admin: 11/10/18 09:28 Dose: 1 dose Documented by: [id number] Loratadine (Claritin) 10 mg PO NOW ONE Stop: 11/11/18 12:17 Last Admin: 11/11/18 12:55 Dose: 10 mg Documented by: [id number] Metoprolol Tartrate (Lopressor) 12.5 mg PO BID VIVEK Stop: 12/09/18 22:27 Last Admin: 11/10/18 12:53 Dose: 12.5 mg Documented by: [id number] Admin: 11/09/18 23:12 Dose: 12.5 mg Documented by: [id number] Metoprolol Tartrate (Lopressor) Confirm Administered Dose 10 mg IV .STK-MED ONE Stop: 11/10/18 09:28 Last Admin: 11/10/18 09:27 Dose: 10 mg Documented by: [id number] Nitroglycerin (Nitrostat) 0.4 mg SL NOW STA Stop: 11/09/18 20:05 Last Admin: 11/09/18 20:07 Dose: 0.4 mg Documented by: [id number] Nitroglycerin (Nitro-Bid 2%) 1 inch EXT NOW STA Stop: 11/09/18 20:28 Last Admin: 11/09/18 21:03 Dose: 1 inch Documented by: [id number] Ondansetron HCl (Zofran) 4 mg IV Q6H PRN PRN Reason: Nausea Stop: 12/09/18 22:27 Last Admin: 11/11/18 09:09 Dose: 4 mg Documented by: [id number] Admin: 11/10/18 02:11 Dose: 4 mg Documented by: [id number] Rivaroxaban (Xarelto) 20 mg PO HS VVIEK Stop: 12/10/18 20:59 Last Admin: 11/10/18 21:22 Dose: 20 mg Documented by: [id number] Admin: 11/09/18 23:12 Dose: 20 mg Documented by: [id number] Medical Decision Making Differential Diagnosis Differential diagnoses includes but is not limited to acute coronary syndrome, myocardial infarction, pericarditis, pulmonary embolus, aortic dissection, pneumonia, pneumothorax, musculoskeletal, shingles, esophageal. Medical Records Attestation: I reviewed the patient's medical records. Home Medications Current Medication List: was personally reviewed by me Laboratory Data Attestation: I reviewed the patient's lab results. Result diagrams: 11/10/18 07:07 11/11/18 05:47 Lab Results 11/09/18 11/09/18 11/09/18 Range/Units 19:20 19:20 19:20 WBC 8.74 (4.8-10.8) K/uL RBC 4.41 (4.2-5.4) M/uL Hgb 12.3 (12.0-16.0) g/dL Hct 38.2 (37-47) % MCV 86.6 (80-100) fL MCH 27.9 (25-34) pg MCHC 32.2 (32-36) g/dL RDW Std Deviation 53.7 H (36.4-46.3) fL RDW Coeff of Myra 16.9 H (11.5-14.5) % Plt Count 413 H (130-400) K/uL MPV 11.1 H (7.4-10.4) fL Immature Gran % (Auto) 0.1 % Neut % (Auto) 69.6 % Lymph % (Auto) 22.0 % [place] % (Auto) 6.3 % Eos % (Auto) 1.1 % Baso % (Auto) 0.9 % Immature Gran # (Auto) 0.01 (0.00-0.02) K/uL Neut # (Auto) 6.08 (1.4-6.5) K/uL Lymph # (Auto) 1.92 (1.2-3.4) K/uL [place] # (Auto) 0.55 (0.11-0.59) K/uL Eos # (Auto) 0.10 (0-0.5) K/uL Baso # (Auto) 0.08 (0-0.2) K/uL Sodium 140 (136-145) mmol/L Potassium 3.8 (3.5-5.1) mmol/L Chloride 107 (98-107) mmol/L Carbon Dioxide 25 (21-32) mmol/L Anion Gap 7.0 (3-11) BUN 8 (7-18) mg/dl Creatinine 0.90 (0.6-1.2) mg/dl Est Cr Clr Drug Dosing Not Reportable Est GFR ( Amer) 73.5 Est GFR (Non-Af Amer) 63.4 BUN/Creatinine Ratio 8.5 L (10-20) Glucose 121 H (70-99) mg/dl Calcium 8.9 (8.5-10.1) mg/dl Magnesium (1.8-2.4) mg/dl Total Bilirubin 0.6 (0.2-1) mg/dl AST 50 H (15-37) U/L ALT 27 (12-78) U/L Alkaline Phosphatase 306 H (45-117) U/L Total Creatine Kinase 59 (26-192) U/L CK-MB (CK-2) < 1.0 (0.5-3.6) ng/ml CK/CKMB % Calc TNP Troponin I < 0.015 (0-0.045) ng/ml Total Protein 7.6 (6.4-8.2) gm/dl Albumin 3.4 (3.4-5.0) gm/dl Globulin 4.2 H (2.5-4.0) gm/dl Albumin/Globulin Ratio 0.8 L (0.9-2) Lipase 113 (73-393) U/L Vitamin B12 (211-911) pg/ml TSH (0.300-4.500) uIu/ml 11/09/18 11/09/18 11/09/18 Range/Units 19:20 19:20 23:41 WBC (4.8-10.8) K/uL RBC (4.2-5.4) M/uL Hgb (12.0-16.0) g/dL Hct (37-47) % MCV (80-100) fL MCH (25-34) pg MCHC (32-36) g/dL RDW Std Deviation (36.4-46.3) fL RDW Coeff of Myra (11.5-14.5) % Plt Count (130-400) K/uL MPV (7.4-10.4) fL Immature Gran % (Auto) % Neut % (Auto) % Lymph % (Auto) % Rad[place] % (Auto) % Eos % (Auto) % Baso % (Auto) % Immature Gran # (Auto) (0.00-0.02) K/uL Neut # (Auto) (1.4-6.5) K/uL Lymph # (Auto) (1.2-3.4) K/uL [place] # (Auto) (0.11-0.59) K/uL Eos # (Auto) (0-0.5) K/uL Baso # (Auto) (0-0.2) K/uL Sodium (136-145) mmol/L Potassium (3.5-5.1) mmol/L Chloride (98-107) mmol/L Carbon Dioxide (21-32) mmol/L Anion Gap (3-11) BUN (7-18) mg/dl Creatinine (0.6-1.2) mg/dl Est Cr Clr Drug Dosing Est GFR ( Amer) Est GFR (Non-Af Amer) BUN/Creatinine Ratio (10-20) Glucose (70-99) mg/dl Calcium (8.5-10.1) mg/dl Magnesium 2.4 (1.8-2.4) mg/dl Total Bilirubin (0.2-1) mg/dl AST (15-37) U/L ALT (12-78) U/L Alkaline Phosphatase (45-117) U/L Total Creatine Kinase (26-192) U/L CK-MB (CK-2) (0.5-3.6) ng/ml CK/CKMB % Calc Troponin I (0-0.045) ng/ml Total Protein (6.4-8.2) gm/dl Albumin (3.4-5.0) gm/dl Globulin (2.5-4.0) gm/dl Albumin/Globulin Ratio (0.9-2) Lipase (73-393) U/L Vitamin B12 448 (211-911) pg/ml TSH 2.630 (0.300-4.500) uIu/ml 11/10/18 11/10/18 11/10/18 Range/Units 00:28 07:07 07:07 WBC 6.54 (4.8-10.8) K/uL RBC 3.77 L (4.2-5.4) M/uL Hgb 10.5 L (12.0-16.0) g/dL Hct 32.8 L (37-47) % MCV 87.0 (80-100) fL MCH 27.9 (25-34) pg MCHC 32.0 (32-36) g/dL RDW Std Deviation 54.0 H (36.4-46.3) fL RDW Coeff of Myra 16.9 H (11.5-14.5) % Plt Count 370 (130-400) K/uL MPV 10.3 (7.4-10.4) fL Immature Gran % (Auto) % Neut % (Auto) % Lymph % (Auto) % [place] % (Auto) % Eos % (Auto) % Baso % (Auto) % Immature Gran # (Auto) (0.00-0.02) K/uL Neut # (Auto) (1.4-6.5) K/uL Lymph # (Auto) (1.2-3.4) K/uL [place] # (Auto) (0.11-0.59) K/uL Eos # (Auto) (0-0.5) K/uL Baso # (Auto) (0-0.2) K/uL Sodium 144 (136-145) mmol/L Potassium 3.6 (3.5-5.1) mmol/L Chloride 110 H (98-107) mmol/L Carbon Dioxide 26 (21-32) mmol/L Anion Gap 8.0 (3-11) BUN 8 (7-18) mg/dl Creatinine 0.93 (0.6-1.2) mg/dl Est Cr Clr Drug Dosing 46.5 Est GFR ( Amer) 70.7 Est GFR (Non-Af Amer) 61.0 BUN/Creatinine Ratio 8.8 L (10-20) Glucose 108 H (70-99) mg/dl Calcium 8.9 (8.5-10.1) mg/dl Magnesium (1.8-2.4) mg/dl Total Bilirubin (0.2-1) mg/dl AST (15-37) U/L ALT (12-78) U/L Alkaline Phosphatase (45-117) U/L Total Creatine Kinase (26-192) U/L CK-MB (CK-2) (0.5-3.6) ng/ml CK/CKMB % Calc Troponin I < 0.015 < 0.015 (0-0.045) ng/ml Total Protein (6.4-8.2) gm/dl Albumin (3.4-5.0) gm/dl Globulin (2.5-4.0) gm/dl Albumin/Globulin Ratio (0.9-2) Lipase (73-393) U/L Vitamin B12 (211-911) pg/ml TSH (0.300-4.500) uIu/ml Imaging Data Radiologist's Impression: Radiology results as stated below per my review and the radiologist's interpretation: XR chest 1V portable CLINICAL HISTORY: 73 years-old Female presenting with Chest Pain, history of metastatic disease. TECHNIQUE: Portable upright AP view of the chest was obtained. COMPARISON: 10/21/2018. FINDINGS: Atherosclerosis of the aortic arch. Cardiac silhouette enlarged. Enlargement of the main pulmonary artery. Lungs are hyperinflated. Minimal linear opacities at the left lung base as on prior exam. No pleural effusion or pneumothorax. Osseous structures normal. Upper abdomen normal. IMPRESSION: 1. Cardiomegaly and pulmonary artery hypertension. No congestive change or volume overload. 2. Hyperinflation could suggest underlying emphysema or other obstructive lung disease. 3. Minimal left basilar atelectasis or scarring. Electronically signed by: Shailesh Espino M.D. 11/09/2018 7:38 PM ECG Data Attestation: I personally reviewed and interpreted this ECG as follows: Indication: chest pain Rate (beats per minute): 65 Rhythm: normal sinus Findings: no PAC, no PVC, no ST depression and no ST elevation Blood Pressure Blood Pressure Findings: Elevated blood pressure Blood Pressure Disposition: further management by hospitalist MDM Narrative This is a 73-year-old female who presents emergency department complaining of chest pain. The patient's chest pain is resolved with nitro. She has a normal CK-MB and troponin fraction. In addition her EKG does not show any changes. I did discuss her case with the hospitalist service who agreed to admit the patient. Patient was in agreement with the treatment plan plan. Impression & Plan Chest pain Discharge Plan Visit Data *Final* Discharge Date/Time: 11/09/18 21:50 Chief Complaint: Chest Pain Stated Complaint: SOB, CHEST TIGHTNESS, FEET/HANDS NUMB ED Provider: Deny Thayer Discharge Problem: Chest pain Patient Disposition: Admitted As Inpatient Discharge Instructions Interventions: ED Discharge Assessment Last Done: 11/09/18 21:50 Discharge Problem: Chest pain Qualifiers: Chest pain type: unspecified Qualified Code(s): R07.9 - Chest pain, unspecified The scribe's documentation has been prepared under my direction and personally reviewed by me in its entirety. I confirm that the note above accurately reflects all work, treatment, procedures, and medical decision making performed by me.
--- NOTE | 2018-11-16 08:49 | Coding Query ---
CHEST PAIN To promote full compliance with coding requirements relating to patient care physician participation is requested in all cases of house rn uncertainty. Please assist us with the question(s) below: Please list a more specific chest pain diagnosis or cause of chest pain if known by placing an X within the parenthesis. Please document, if known or suspected the cause of the noncardiac chest pain. (x): ( x) Atypical Chest Pain ( ) Chest Wall Pain ( ) Midsternal Chest Pain ( ) Musculoskeletal Chest Pain ( ) Pleuritic Chest Pain ( ) Substernal Chest Pain ( ) Costochondral Chest Pain ( ) Other (please Specify) ( ) Unable to Determine Thank you BELIA Lazar [facility]
== END 2018-11-11 17:22 | disposition home health service (06) | DRG 313 ==
LOC: 2S 18:25 → ED 18:25 → 2S 21:50

== ENCOUNTER 2019-03-03 11:19 | Inpatient (IN) ==
[2019-03-03] MEDS ORDERED: ACETAMINOPHEN 1,000 MG/100 ML VIAL IV STA (12:02)
--- NOTE | 2019-03-03 12:09 | Emergency Department Note ---
History of Present Illness General Chief complaint: Fall Stated complaint: fall/ R hip, leg & shoulder pain Time Seen by Provider: 03/03/19 11:43 Source: patient, family and EMS Mode of arrival: EMS Limitations: no limitations History of Present Illness This 74-year-old white female presents today by S ambulance, for evaluation of her left face, right hip, and right knee. Patient was at home this morning and had just gotten out of the shower. She was drying off and became dizzy. She fell, striking her left face on the door jam. She fell over a close basket and struck her right knee on the floor. She landed on her right side. She denies any loss of consciousness. She is nauseated and has vomited. She denies any neck pain or back pain. 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 She frequently gets dizzy, according to she and her family. She falls frequently as well. These are not new for her. She has antiemetics at home because the chemotherapy and radiation frequently make her nauseated. However, she does not usually vomit or get nauseated after falling. Patient does take Xarelto. She denies any change in vision, speech, or hearing. Patient was ambulatory after the fall. She has been able to move the right lower extremity and bear weight. No other complaints. Home Medications Home Medications Medication Instructions Recorded Confirmed Type cholecalciferol (vitamin D3) 2,000 units PO QAM 04/09/18 03/03/19 History [Vitamin D3] albuterol sulfate 2 puffs INH Q6H PRN #1 ea 08/15/18 03/03/19 Rx acetaminophen 325 mg tablet 325 mg PO Q6H PRN 12/13/18 03/03/19 History lanreotide 120 mg/0.5 mL 0 mg SQ MONTHLY ml 12/13/18 03/03/19 History subcutaneous syringe ondansetron HCl 8 mg PO Q8H PRN 03/03/19 03/03/19 History Allergies Allergy/AdvReac Type Severity Reaction Status Date / Time nut - unspecified Allergy Severe throat Verified 03/03/19 12:55 swelling aspirin Allergy Intermediate "ASTHMA" Verified 03/03/19 12:55 celecoxib Allergy Intermediate "ASTHMA Verified 03/03/19 12:55 ATTACK" codeine Allergy Intermediate "FACE Verified 03/03/19 12:55 PUFFS UP" morphine Allergy Intermediate "FACE Verified 03/03/19 12:55 PUFFS UP" latex Allergy Mild RASH Verified 03/03/19 12:55 caffeine AdvReac Intermediate HEADACHE Verified 03/03/19 12:55 midazolam AdvReac Intermediate extreme Verified 03/03/19 12:55 anxiety fentanyl AdvReac Mild DELIRIUM Verified 03/03/19 12:55 lorazepam AdvReac Mild ANXIOUS Verified 03/03/19 12:55 Past Med/Surg History Family History Sister Family history of diabetes mellitus Social History Preferred Language: Kiswahili Communication Ability: Effective 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 Laying on the bed. Alert and oriented. Visible hematoma over her left periorbital area. No open wounds. Complains of being very nauseated. Skin: Warm and dry with fair turgor. No rashes or lesions. Significant ecchymosis around the left eye, primarily superior and lateral. Upper lid is starting to swell shut. No erythema. The patient is not diaphoretic. No abrasions. HEENT: Normocephalic. Eyes PERRLA, EOMI. No conjunctiva or scleral injection. Visible hematoma around the left eye as stated. Ears TMs intact bilaterally with good light reflexes. No erythema or bulging. No hemotympanum. Canals are patent. Nares patent bilaterally without turbinate enlargement. No significant drainage. No epistaxis. No pain with palpation over the nasal bridge. Oropharynx without erythema or exudate. Uvula midline, oral mucosa moist. No lesions present. Heart: Heart fairly regular rhythm with occasional premature beats. No MGR. Peripheral pulses are 2+. Lungs: Lungs are clear to auscultation. No crackles rhonchi or wheezing. Good air movement. The patient is able to take a deep breath. Abdomen: Abdomen was inspected, auscultated, and palpated. Bowel sounds present x 4. Soft, nontender to palpation. No hepato-splenomegaly. No masses noted. No rebound. No CVA tenderness. Musculoskeletal: Gross motor function of the upper and lower extremities is intact and unremarkable. Supple motion of her shoulders, elbows, and wrists. No discomfort with palpation over the cervical spine. Full rotation as well as forward flexion and extension of the neck without discomfort. Lower extremity evaluation reveals no obvious deformity or asymmetry. She has supple motion of her right hip, knee, and ankle. No pain with logrolling. No pain with passive or active flexion. She is tender to touch over the greater trochanter and IT band. She also has focal discomfort with palpation over the medial aspect of her right knee. This is over the femoral condyle and medial joint line. Stable collateral ligaments. Normal Linette. No defect in the patellar tendon or quadriceps tendon. Strength is 5/5 with fair quad tone. Neurologic: Cranial nerves II through XII are intact. Gross sensation is intact across the upper and lower extremities by soft touch. Course Administered Medications Discontinued Medications Acetaminophen (Tylenol) 325 mg PO Q6H PRN PRN Reason: pain/fever Stop: 04/02/19 19:59 Last Admin: 03/04/19 21:14 Dose: 325 mg Documented by: [id number] Admin: 03/04/19 02:54 Dose: 325 mg Documented by: [id number] Diphenhydramine HCl (Benadryl) 12.5 mg IV Q6H PRN PRN Reason: Nausea Stop: 04/03/19 12:11 Last Admin: 03/06/19 09:54 Dose: 12.5 mg Documented by: [id number] Admin: 03/05/19 23:35 Dose: 12.5 mg Documented by: [id number] Admin: 03/05/19 15:27 Dose: 12.5 mg Documented by: [id number] Admin: 03/05/19 08:17 Dose: 12.5 mg Documented by: [id number] Admin: 03/04/19 21:15 Dose: 12.5 mg Documented by: [id number] Acetaminophen (Ofirmev) 1,000 mg in 100 mls @ 400 mls/hr IV NOW STA Stop: 03/03/19 12:16 Last Infusion: 03/03/19 12:57 Dose: 0 mls/hr Documented by: [id number] Admin: 03/03/19 12:37 Dose: 400 mls/hr Documented by: [id number] Sodium Chloride (Nss 1000ml) 1,000 mls @ 100 mls/hr IV .Q10H VIVEK Stop: 04/04/19 12:29 Last Infusion: 03/06/19 10:04 Dose: 0 mls/hr Documented by: [id number] Admin: 03/06/19 06:41 Dose: 100 mls/hr Documented by: [id number] Infusion: 03/06/19 06:41 Dose: 100 mls/hr Documented by: [id number] Admin: 03/05/19 21:21 Dose: 100 mls/hr Documented by: [id number] Infusion: 03/05/19 21:21 Dose: 100 mls/hr Documented by: [id number] Admin: 03/05/19 13:02 Dose: 100 mls/hr Documented by: [id number] Cosyntropin 1 mcg/ Syringe 0.5 mls @ 1 mls/min IV ONE ONE Stop: 03/06/19 07:31 Last Admin: 03/06/19 07:44 Dose: 1 mls/min Documented by: [id number] Metoclopramide HCl (Reglan) 10 mg IV Q6H PRN PRN Reason: Nausea Stop: 04/03/19 10:59 Last Admin: 03/04/19 12:09 Dose: 10 mg Documented by: [id number] Ondansetron HCl (Zofran) 4 mg IV NOW [facility] Stop: 03/03/19 14:42 Last Admin: 03/03/19 14:47 Dose: 4 mg Documented by: [id number] Ondansetron HCl (Zofran) 4 mg IV Q6H PRN PRN Reason: Nausea Stop: 04/02/19 19:59 Last Admin: 03/04/19 06:46 Dose: 4 mg Documented by: [id number] Vitamin D (Vitamin D3) 2,000 units PO QAM VIVEK Stop: 04/03/19 08:59 Last Admin: 03/06/19 09:52 Dose: 2,000 units Documented by: [id number] Admin: 03/05/19 08:11 Dose: 2,000 units Documented by: [id number] Admin: 03/04/19 07:56 Dose: 2,000 units Documented by: [id number] Medical Decision Making Differential Diagnosis Facial contusion, intracranial bleed, concussion, long bone fracture, muscle strain, ligament sprain, electrolyte abnormality, infection Medical Records Attestation: I reviewed the patient's medical records. Home Medications Current Medication List: was personally reviewed by me Laboratory Data Attestation: I reviewed the patient's lab results. CBC, PT/INR, and chemistry profile were obtained. Mild elevation in white count at 12.1. Normal platelets. INR normal at 1.0. Electrolytes and kidney function are unremarkable. AST is mildly elevated at 46. Alk phosphatase is elevated at 200. Albumin slightly low at 3.2. Result diagrams: 03/05/19 12:39 03/05/19 12:39 Lab Results 03/03/19 03/03/19 03/03/19 Range/Units 12:39 12:39 12:39 WBC 12.13 H (4.8-10.8) K/uL RBC 4.61 (4.2-5.4) M/uL Hgb 13.6 (12.0-16.0) g/dL Hct 40.8 (37-47) % MCV 88.5 (80-100) fL MCH 29.5 (25-34) pg MCHC 33.3 (32-36) g/dL RDW Std Deviation 56.0 H (36.4-46.3) fL RDW Coeff of Myra 17.3 H (11.5-14.5) % Plt Count 275 (130-400) K/uL MPV 11.2 H (7.4-10.4) fL Immature Gran % (Auto) 0.2 % Neut % (Auto) 89.5 % Lymph % (Auto) 3.4 % [place] % (Auto) 6.5 % Eos % (Auto) 0.2 % Baso % (Auto) 0.2 % Immature Gran # (Auto) 0.03 H (0.00-0.02) K/uL Neut # (Auto) 10.85 H (1.4-6.5) K/uL Lymph # (Auto) 0.41 L (1.2-3.4) K/uL [place] # (Auto) 0.79 H (0.11-0.59) K/uL Eos # (Auto) 0.03 (0-0.5) K/uL Baso # (Auto) 0.02 (0-0.2) K/uL PT 10.7 (9.0-12.0) Seconds INR 1.0 (0.9-1.1) Sodium 141 (136-145) mmol/L Potassium 3.6 (3.5-5.1) mmol/L Chloride 109 H (98-107) mmol/L Carbon Dioxide 27 (21-32) mmol/L Anion Gap 5.0 (3-11) BUN 11 (7-18) mg/dl Creatinine 1.01 (0.6-1.2) mg/dl Est Cr Clr Drug Dosing 47.5 ml/min Est GFR ( Amer) 63.5 Est GFR (Non-Af Amer) 54.8 BUN/Creatinine Ratio 10.7 (10-20) Glucose 141 H (70-99) mg/dl Calcium 9.1 (8.5-10.1) mg/dl Total Bilirubin 0.6 (0.2-1) mg/dl Direct Bilirubin 0.1 (0-0.2) mg/dl AST 46 H (15-37) U/L ALT 25 (12-78) U/L Alkaline Phosphatase 200 H (45-117) U/L Total Protein 7.4 (6.4-8.2) gm/dl Albumin 3.2 L (3.4-5.0) gm/dl Globulin 4.2 H (2.5-4.0) gm/dl Albumin/Globulin Ratio 0.8 L (0.9-2) Imaging Data Radiologist's Impression: Radiographic imaging obtained today of the right knee, right hip, and CT scan imaging of her head, was obtained. These were reviewed by me and read by radiology. Knee and hip films show advanced degenerative changes within both joints. No evidence for fracture or dislocation. She does have a bone cyst within the proximal tibia. Patient was not aware of this. CT scan imaging shows no intracranial bleed. Extracranial left prefrontal soft tissue hematoma is noted. Blood Pressure Blood Pressure Disposition: elevated BP felt to be situational MDM Narrative Patient was evaluated in C3. Conservative care measures were discussed. IV was established. Labs were obtained. CT scan imaging of her head, along with regul ar radiographic imaging of her right hip and right knee, were obtained. These are all unremarkable. Patient remained significantly nauseated and had occasional dry heaves. Likelihood of concussion was discussed. She was given Tylenol 1 g IV as well as Zofran 4 mg IV. Nausea persisted. She had no further vomiting. She continued to complain of her head hurting. Because of her use of Xarelto, I would not use Toradol for pain control. Option of morphine for pain relief was discussed. She states it makes her face swell. Patient was monitored in the ED for several hours. The initial plan was that she would be discharged to home with follow-up on an outpatient basis if symptoms improved while in the ED. Headache and nausea did not improve. I did recommend that she be observed overnight. [facility] agreement[facility]. Please see that dictation for final management. Patient remained otherwise stable while in the ED. Patient was seen in conjunction with Dr. Perdomo, who also evaluated the patient and concurred with today's diagnosis and treatment plan. Impression & Plan Fall at home, Traumatic hematoma of head, Contusion of knee, right Discharge Plan Visit Data *Final* Discharge Date/Time: 03/03/19 19:15 Chief Complaint: Fall Stated Complaint: fall/ R hip, leg & shoulder pain ED Provider: Deny Perdomo ED Midlevel Provider: Trav Lal Discharge Problem: Fall at home, Traumatic hematoma of head, Contusion of knee, right Patient Disposition: Admitted As Inpatient Condition: Good Discharge Instructions Interventions: ED Discharge Assessment Last Done: 03/03/19 19:15 Discharge Problem: Fall at home Qualifiers: Encounter type: initial encounter Qualified Code(s): W19.XXXA - Unspecified fall, initial encounter Traumatic hematoma of head Qualifiers: Encounter type: initial encounter Qualified Code(s): S00.93XA - Contusion of unspecified part of head, initial encounter Contusion of knee, right Qualifiers: Encounter type: initial encounter Qualified Code(s): S80.01XA - Contusion of right knee, initial encounter
--- NOTE | 2019-03-03 12:28 | CT Scan Report ---
CT head/brain wo con CT DOSE: 638.84 mGy.cm HISTORY: fall, Left forehead contusion, on Xarelto TECHNIQUE: Multiaxial CT images of the head were performed without the use of intravenous contrast. A dose lowering technique was utilized adhering to the principles of ALARA. Comparison: None. Findings: The paranasal sinuses and mastoid air cells are clear. Extracranial left prefrontal soft ti ssue hematoma. Density characteristics of the brain show no acute abnormality. There are chronic lala ges of small vessel atherosclerotic change. There is no acute intracranial hemorrhage. Impression: 1. No acute intracranial abnormality. 2. Extracranial left prefrontal soft tissue hematoma. ACT 112: Negative or not required by law. The above report was generated using voice recognition software. It may contain grammatical, syntax or spelling errors. Electronically signed by: Cal Felix M.D. 03/03/2019 12:27 PM
[2019-03-03 13:05] LABS: Prothrombin Time 10.7 Seconds (9.0-12.0)
[2019-03-03 13:13] LABS: Albumin Level 3.2 gm/dl (3.4-5.0); BUN Creatinine Ratio 10.7 (10-20); Bilirubin Direct 0.1 mg/dl (0-0.2); Calcium 9.1 mg/dl (8.5-10.1); Creatinine Clr Calc Pharmacy 47.5 ml/min; Est GFR (African American) 63.5; Est GFR (Non-African American) 54.8; Potassium 3.6 mmol/L (3.5-5.1)
[2019-03-03 13:16] LABS: Albumin Globulin Ratio 0.8 (0.9-2); Bilirubin,Total 0.6 mg/dl (0.2-1); Globulin 4.2 gm/dl (2.5-4.0); Total Protein 7.4 gm/dl (6.4-8.2)
[2019-03-03 13:18] LABS: Basophils # (auto) 0.02 K/uL (0-0.2); Basophils % (auto) 0.2 %; Eosinophils # (auto) 0.03 K/uL (0-0.5); Eosinophils % (auto) 0.2 %; Hematocrit (blood only) 40.8 % (37-47); Hemoglobin 13.6 g/dL (12.0-16.0); Immature Granulocytes # (auto) 0.03 K/uL (0.00-0.02); Immature Granulocytes % (auto) 0.2 %; Lymphocytes # (auto) 0.41 K/uL (1.2-3.4); Lymphocytes % (auto) 3.4 %; Mean Corpuscular Hemoglobin 29.5 pg (25-34); Mean Corpuscular Hgb Conc 33.3 g/dL (32-36); Mean Corpuscular Volume 88.5 fL (80-100); Mean Platelet Volume 11.2 fL (7.4-10.4); Monocytes # (auto) 0.79 K/uL (0.11-0.59); Monocytes % (auto) 6.5 %; Neutrophils # (auto) 10.85 K/uL (1.4-6.5); Neutrophils % (auto) 89.5 %; Platelet Count 275 K/uL (130-400); RDW Coefficient of Variation 17.3 % (11.5-14.5); Red Blood Count 4.61 M/uL (4.2-5.4); White Blood Count 12.13 K/uL (4.8-10.8)
--- NOTE | 2019-03-03 13:23 | XRay Report ---
XR knee RT 1 or 2V routine CLINICAL HISTORY: R knee pain after fall COMPARISON: None. DISCUSSION: Severe degenerative change all major joint compartments. Very small joint effusion. No fa t fluid level. Cyst involving the proximal tibia. Considerable degenerative changes of the articular surfaces. No we ll-defined evidence for fracture. There is no evidence for soft tissue swelling. IMPRESSION: 1. Significant to severe degenerative change all major joint compartments. 2. Very small joint effusion. 3. Bone cyst proximal tibia. ACT 112: Negative or not required by law. The above report was generated using voice recognition software. It may contain grammatical, syntax or spelling errors. Electronically signed by: Cal Felix M.D. 03/03/2019 1:22 PM
--- NOTE | 2019-03-03 13:25 | XRay Report ---
XR hip RT 2V w pelvis CLINICAL HISTORY: R hip pain after fall trauma. Pain. COMPARISON: None. DISCUSSION: Significant degenerative change of the hips bilaterally. No evidence for fracture. No misty dence for acetabular protrusion. Degenerative change lower lumbar spine as well as sacroiliac joints. There is no evidence for soft tissue swelling. IMPRESSION: Degenerative change all major bony structures. No acute bony abnormality. ACT 112: Negative or not required by law. The above report was generated using voice recognition software. It may contain grammatical, syntax or spelling errors. Electronically signed by: Cal Felix M.D. 03/03/2019 1:23 PM
--- NOTE | 2019-03-03 13:32 | Emergency Department Note ---
ED Visit Note The patient is a 74-year-old female who slipped and fell on her bathtub. She landed on some close but hit her head on the floor. She is on Xarelto for A. fib. She is currently in a sinus rhythm. The patient CT scan of the brain was negative for acute intracranial hemorrhage. Because of the hematoma, we are going to have the patient stop the Xarelto for 3 days to allow things to heal and stop bleeding. She is felt to be stable for discharge. .
[2019-03-03] MEDS ORDERED: ONDANSETRON INJ 2 MG/ML 2 ML VIAL IV STA (14:41)
--- NOTE | 2019-03-03 18:22 | History & Physical Report ---
Date of Service March 03, 2019 Assessment & Plan (1) Fall at home: 74 years old female on Xarelto for A. fib presented to the ER after fall CT head showed no acute intracranial abnormality. left prefrontal soft tissue hematoma. Will hold Xarelto for now due to the hematoma Will monitor hemoglobin Pain control with Tylenol Fall precaution PT/OT eval Nausea/Vomiting Hx of nausea on/off due to carcinoid tumor that has been stable Might be related to head trauma Will startt on clear liquid diet IV Zofran prn Right knee tenderness Xray of right knee showed significant to severe degenerative change all major joint compartments. Very small joint effusion. Bone cyst proximal tibia. Continue Tylenol for pain Atrial fibrillation rate control Metoprolol discontinued in the last admission due to bradycardia Will hold Xarelto due to hematoma of the left prefrontal/periorbital area Monitor hemoglobin Hypertension BP has been stable as per family Asthma on albuterol PRN Stable Metastatic carcinoid tumor Follow with Dr. Galindo On radiation therapy every 8 weeks stable DVT prophylaxis Xarelto on hold due to hematoma SCD Code Status Full Code History of Present Illness Chief Complaint: S/P fall Primary Care Provider: Genia Cullen, 74 years old female with past medical history of A. fib on Xarelto, carcinoid tumor, asthma presented to the ER after a fall. Patient said this morning while getting out of the shower her leg felt weak, when she tried to reach for the walker she fell in top of the hamper and hit her head on the wall. Patient said that she was fine before she fell and did not have any symptom of dizziness or lightheaded. Daughter said right after the fall patient developed lightheade dness and felt nauseated; then she had an episode of greenish like vomiting and multiple episodes episodes in the ER. Daughter said patient has been doing well lately. She has not has much nausea or diarrhea lately and tolerated the radiation very well. She has a large hematoma in the left orbital area that is tender to touch. She said the pain improved with IV Tylenol that was given in the ER. denies any chest pain, palpitation, dizziness, and shortness of breath. Allergies Allergy/AdvReac Type Severity Reaction Status Date / Time nut - unspecified Allergy Severe throat Verified 03/03/19 12:55 swelling aspirin Allergy Intermediate "ASTHMA" Verified 03/03/19 12:55 celecoxib Allergy Intermediate "ASTHMA Verified 03/03/19 12:55 ATTACK" codeine Allergy Intermediate "FACE Verified 03/03/19 12:55 PUFFS UP" morphine Allergy Intermediate "FACE Verified 03/03/19 12:55 PUFFS UP" latex Allergy Mild RASH Verified 03/03/19 12:55 caffeine AdvReac Intermediate HEADACHE Verified 03/03/19 12:55 midazolam AdvReac Intermediate extreme Verified 03/03/19 12:55 anxiety fentanyl AdvReac Mild DELIRIUM Verified 03/03/19 12:55 lorazepam AdvReac Mild ANXIOUS Verified 03/03/19 12:55 Home Medications Home Medications Medication Instructions Recorded Confirmed Type Xarelto 20 mg PO HS 04/09/18 03/03/19 History cholecalciferol (vitamin D3) 2,000 units PO QAM 04/09/18 03/03/19 History [Vitamin D3] albuterol sulfate 2 puffs INH Q6H PRN #1 ea 08/15/18 03/03/19 Rx acetaminophen 325 mg tablet 325 mg PO Q6H PRN 12/13/18 03/03/19 History lanreotide 120 mg/0.5 mL 0 mg SQ MONTHLY ml 12/13/18 03/03/19 History subcutaneous syringe Benadryl 12.5 mg PO DAILY 03/03/19 03/03/19 History ondansetron HCl 8 mg PO Q8H PRN 03/03/19 03/03/19 History Past Med/Surg History Social History Preferred Language: Greek Communication Ability: Effective Tub Operator Required: No Beliefs That Will Affect Care: None marital status: Current Living Situation: Family Feels Safe at Home: Yes Smoking Status: Never smoker Second Hand Exposure: Yes ; Hx Alcohol Use: No Hx Substance Use: No Review of Systems Review of Systems: All systems reviewed & are unremarkable except as noted in HPI & below Physical Exam Physical Exam: General- No acute distress Head- Left prefrontal hematoma/ecchymoses Eyes- large hematoma, ecchymoses and tenderness in the left orbital area ENT- oropharynx clear Neck- supple, no JVD Lungs- clear to auscultation Heart- regular rhythm; no murmur Abdomen- normal bowel sounds, soft, nontender Extremities- no calf tenderness, R knee tenderness Neuro- alert, oriented, PERRL, EOMI; no facial palsy; no dysarthria Skin- warm & dry Results & Data Vital Signs (Past 12 Hours) Vital Signs Pulse Pulse Resp BP BP Pulse Ox 03/03/19 17:00 71 20 157/82 H 98 03/03/19 14:07 74 20 142/90 H 98 03/03/19 12:38 77 16 158/85 H 95 03/03/19 11:20 83 20 120/[address] head/brain wo con CT DOSE: 638.84 mGy.cm HISTORY: fall, Left forehead contusion, on Xarelto TECHNIQUE: Multiaxial CT images of the head were performed without the use of intravenous contrast. A dose lowering technique was utilized adhering to the principles of ALARA. Comparison: None. Findings: The paranasal sinuses and mastoid air cells are clear. Extracranial left prefrontal soft tissue hematoma. Density characteristics of the brain show no acute abnormality. There are chronic changes of small vessel atherosclerotic change. There is no acute intracranial hemorrhage. Impression: 1. No acute intracranial abnormality. 2. Extracranial left prefrontal soft tissue hematoma. ACT 112: Negative or not required by law. The above report was generated using voice recognition software. It may contain grammatical, syntax or spelling errors. Electronically signed by: Cal Felix M.D. 03/03/2019 12:27 PM Dictated: 03/03/19 1225 Transcribed: 03/03/19 1225 XR hip RT 2V w pelvis CLINICAL HISTORY: R hip pain after fall trauma. Pain. COMPARISON: None. DISCUSSION: Significant degenerative change of the hips bilaterally. No evidence for fracture. No evidence for acetabular protrusion. Degenerative change lower lumbar spine as well as sacroiliac joints. There is no evidence for soft tissue swelling. IMPRESSION: Degenerative change all major bony structures. No acute bony abnormality. ACT 112: Negative or not required by law. The above report was generated using voice recognition software. It may contain grammatical, syntax or spelling errors. Electronically signed by: Cal Felix M.D. 03/03/2019 1:23 PM Dictated: 03/03/19 1322 Transcribed: 03/03/19 1322 XR knee RT 1 or 2V routine CLINICAL HISTORY: R knee pain after fall COMPARISON: None. DISCUSSION: Severe degenerative change all major joint compartments. Very small joint effusion. No fat fluid level. Cyst involving the proximal tibia. Considerable degenerative changes of the articular surfaces. No well-defined evidence for fracture. There is no evidence for soft tissue swelling. IMPRESSION: 1. Significant to severe degenerative change all major joint compartments. 2. Very small joint effusion. 3. Bone cyst proximal tibia. ACT 112: Negative or not required by law. The above report was generated using voice recognition software. It may contain grammatical, syntax or spelling errors. Electronically signed by: Cal Felix M.D. 03/03/2019 1:22 PM Dictated: 03/03/19 1321 Transcribed: 03/03/19 1321 (1) Fall at home Encounter type: initial encounter Qualified Code(s): W19.XXXA - Unspecified fall, initial encounter; Y92.009 - Unspecified place in unspecified non- institutional (private) residence as the place of occurrence of the external cause
[2019-03-03] MEDS ORDERED: ONDANSETRON INJ 2 MG/ML 2 ML VIAL IV PRN (20:00)
[2019-03-04] MEDS: ACETAMINOPHEN 325 MG TAB PO PRN ×2 (02:54→21:14)
[2019-03-04 06:05] LABS: Hematocrit (blood only) 35.6 % (37-47); Hemoglobin 11.7 g/dL (12.0-16.0); Mean Corpuscular Hemoglobin 29.7 pg (25-34); Mean Corpuscular Hgb Conc 32.9 g/dL (32-36); Mean Corpuscular Volume 90.4 fL (80-100); Mean Platelet Volume 11.1 fL (7.4-10.4); Platelet Count 244 K/uL (130-400); RDW Coefficient of Variation 17.4 % (11.5-14.5); Red Blood Count 3.94 M/uL (4.2-5.4); White Blood Count 7.58 K/uL (4.8-10.8)
[2019-03-04 06:30] LABS: BUN Creatinine Ratio 13.4 (10-20); Calcium 8.8 mg/dl (8.5-10.1); Creatinine Clr Calc Pharmacy 52.6 ml/min; Est GFR (African American) 77.1; Est GFR (Non-African American) 66.6; Potassium 3.7 mmol/L (3.5-5.1)
[2019-03-04] MEDS: CHOLECALCIFEROL 1,000 UNITS TAB PO SCH (07:56)
[2019-03-04] MEDS ORDERED: METOCLOPRAMIDE HCL INJ 5 MG/ML 2 ML VIAL IV PRN (11:00)
--- NOTE | 2019-03-04 12:54 | Electrocardiogram Report ---
Test Reason : Blood Pressure : / mmHG Vent. Rate : 080 BPM Atrial Rate : 080 BPM P-R Int : 156 ms QRS Dur : 100 ms QT Int : 372 ms P-R-T Axes : 080 -01 146 degrees QTc Int : 429 ms Normal sinus rhythm Abnormal ECG When compared with ECG of 11-NOV-2018 06:54, Vent. rate has increased BY [address] now depressed in Anterior leads T wave inversion now evident in Lateral leads Confirmed by Cristobal Ivey ([id number]) on 03/04/2019 12:54:32 PM Referred By: REFERRED SELF Confirmed By:Cristobal Ivey
--- NOTE | 2019-03-04 15:48 | Hospitalist Progress Note ---
Date of Service March 04, 2019 Assessment & Plan (1) Fall at home: s/p Mechanical Fall secondary to weakness per admitting SVC notes: 74 years old female on Xarelto for A. fib presented to the ER after fall CT head showed no acute intracranial abnormality. left prefrontal soft tissue hematoma. -- fall secondary to weakness weakness started since chemo, radiation as per patient -- check Ortho VS -- PT/OT eval Left Periorbital Hematoma -- s/p Fall -- CT head negative -- Hg dropped from 13 to 11 -- not expanding, no visual changes as per patient will continue to monitor Nausea/Vomiting Hx of nausea on/off due to carcinoid tumor that has been stable Might be related to head trauma -- resolved -- no neurologic changes -- monitor Right knee tenderness Xray of right knee showed significant to severe degenerative change all major joint compartments. Very small joint effusion. Bone cyst proximal tibia. Continue Tylenol for pain -- patient declines Ortho eval for possible steroid injection -- PT/OT eval Atrial fibrillation rate control Metoprolol discontinued in the last admission due to bradycardia Will hold Xarelto due to hematoma of the left prefrontal/periorbital area -- CHADSVASC score 3 -- currentsly in sinus rhythm Hypertension BP stable not on medications observe Asthma on albuterol PRN Stable Metastatic carcinoid tumor Follow with Dr. Galindo On radiation therapy every 8 weeks stable DVT prophylaxis Xarelto on hold due to hematoma SCD Code Status Full Code Disposition lives at home with PT OT ordered Subjective ff up for fall, weakness seen resting in bed, comfortable not in distress states she feels better today compared to yesterday gets up to the commode with no dizziness denies headache, dizziness, focal weakness and numbness nausea is resolving reports moderate r knee pain no other symptoms Review of Systems Review of Systems: All systems reviewed & are unremarkable except as noted in HPI & below Physical Exam Physical Exam: General- oriented x 3, not in distress, speaks in sentences with no effort or accessory muscle use somewhat weak Head- mild hematoma left forehead Eyes- (+) left periorbital hematoma (+) right faint periorbital hematoma, inferior PERRL, EOMI, anicteric ENT- oropharynx clear Neck- supple, no JVD, no adenopathy, no thyromegaly; carotids +2/2, no bruits appreciated Lungs- clear to auscultation bilaterally, no rales/wheezes Heart- normal rate, regular rhythm; no murmur, no gallop, no rub appreciated Abdomen- normal bowel sounds, nondistended, soft, nontender, no masses or hepatosplenomegaly Extremities- no pretibial edema, no calf tenderness; peripheral pulses intact right hip: essentially normal right knee: (+) mild edema, warmth, full ROM, no tenderness Neuro- alert, oriented x 3; CN 2-12 grossly intact; motor 5/5 bilaterally;sensation 100% on all extremities; no other gross focal neurologic deficits Skin- warm & dry Results & Data Vital Signs (Past 12 Hours) Vital Signs Temp Pulse Pulse Resp BP BP Pulse Ox 03/04/19 15:12 37.0 C 72 19 121/76 96 03/04/19 11:46 37.1 C 67 16 117/72 98 03/04/19 10:38 119/69 03/04/19 07:46 57 L 03/04/19 07:30 37.0 C 64 18 161/89 H 91 03/04/19 04:35 37.1 C 67 18 122/71 98 (1) Fall at home Encounter type: initial encounter Qualified Code(s): W19.XXXA - Unspecified fall, initial encounter; Y92.009 - Unspecified place in unspecified non- institutional (private) residence as the place of occurrence of the external cause
[2019-03-04] MEDS: DiphenhydrAMINE HCL 50 MG/ML VIAL IV PRN (21:15)
[2019-03-05] MEDS: CHOLECALCIFEROL 1,000 UNITS TAB PO SCH (08:11)
[2019-03-05] MEDS: DiphenhydrAMINE HCL 50 MG/ML VIAL IV PRN ×3 (08:17→23:35)
[2019-03-05 12:58] LABS: Basophils # (auto) 0.04 K/uL (0-0.2); Basophils % (auto) 0.6 %; Eosinophils # (auto) 0.18 K/uL (0-0.5); Eosinophils % (auto) 2.6 %; Hemoglobin 11.9 g/dL (12.0-16.0); Immature Granulocytes # (auto) 0.01 K/uL (0.00-0.02); Immature Granulocytes % (auto) 0.1 %; Lymphocytes # (auto) 0.88 K/uL (1.2-3.4); Lymphocytes % (auto) 12.5 %; Mean Corpuscular Hemoglobin 29.7 pg (25-34); Mean Corpuscular Hgb Conc 32.2 g/dL (32-36); Mean Corpuscular Volume 92.3 fL (80-100); Mean Platelet Volume 11.1 fL (7.4-10.4); Monocytes # (auto) 0.77 K/uL (0.11-0.59); Monocytes % (auto) 10.9 %; Neutrophils # (auto) 5.17 K/uL (1.4-6.5); Neutrophils % (auto) 73.3 %; Platelet Count 254 K/uL (130-400); RDW Coefficient of Variation 17.2 % (11.5-14.5); RDW Standard Deviation 58.4 fL (36.4-46.3); Red Blood Count 4.01 M/uL (4.2-5.4); White Blood Count 7.05 K/uL (4.8-10.8)
[2019-03-05] MEDS: SODIUM CHLORIDE 0.9% 1000ML 1,000 ML IV SCH ×2 (13:02→21:21)
[2019-03-05 13:24] LABS: BUN Creatinine Ratio 12.7 (10-20); Creatinine Clr Calc Pharmacy 50.1 ml/min; Potassium 3.7 mmol/L (3.5-5.1)
--- NOTE | 2019-03-05 15:49 | CT Scan Report ---
MAXILLOFACIAL CT CT DOSE: 604.19 mGy.cm HISTORY: PERIORBITAL HEMATOMA, R/O FRACTURE TECHNIQUE: Multiaxial CT images of the maxillofacial region were performed and reformatted in the cor onal plane without the use of contrast. A dose lowering technique was utilized adhering to the princ iplrad of NOHEMY. COMPARISON: None. FINDINGS: There is left periorbital soft tissue hematoma. There is also right infraorbital soft tissu e swelling. The globes and retrobulbar fat are intact. There is nasal soft tissue swelling. The visua lized cervical spine, mandible, zygomatic arches, orbital floors, lamina papyracea, and skull base ar e intact. Minimally displaced fracture within the nasal process of the left maxilla best seen on imag e 264. Mild to moderate mucosal thickening within the paranasal sinuses. The mastoid air cells are cl ear. IMPRESSION: 1. Minimally displaced fracture within the nasal process of the left maxilla. 2. Left periorbital soft tissue hematoma and right infraorbital soft tissue swelling. ACT 112: Negative or not required by law. Electronically signed by: Raymundo Chambers M.D. 03/05/2019 3:47 PM
--- NOTE | 2019-03-05 20:24 | Hospitalist Progress Note ---
Date of Service March 05, 2019 Assessment & Plan (1) Fall at home: s/p Mechanical Fall secondary to weakness per admitting C notes: 74 years old female on Xarelto for A. fib presented to the ER after fall CT head showed no acute intracranial abnormality. left prefrontal soft tissue hematoma. -- fall secondary to weakness weakness started since chemo- Lanreotide, radiation as per patient --Ortho VS: Positive --Cortisol normal, check cortisol stimulation test --IV NS as ordered JOE rivero ordered --If without improvement, recommend Mediterranean 0.1 mg p.o. daily -- PT/OT eval Left Periorbital Hematoma -- s/p Fall -- CT head negative -- Hg dropped from 13 to 11 --Positive bilateral periorbital hematoma now Facial CT: 1. Minimally displaced fracture within the nasal process of the left maxilla. 2. Left periorbital soft tissue hematoma and right infraorbital soft tissue swelling. --Repeat CT head for follow-up --Hold Xarelto Nausea/Vomiting Hx of nausea on/off due to carcinoid tumor that has been stable Might be related to head trauma -- resolved -- no neurologic changes -- monitor Right knee tenderness Xray of right knee showed significant to severe degenerative change all major joint compartments. Very small joint effusion. Bone cyst proximal tibia. Continue Tylenol for pain -- patient declines Ortho eval for possible steroid injection -- PT/OT eval Atrial fibrillation rate control Metoprolol discontinued in the last admission due to bradycardia HOLD Xarelto due to hematoma of the left prefrontal/periorbital area -- CHADSVASC score 3 -- currently in sinus rhythm --Will need to reevaluate patient's hematoma and fall risk prior to starting Xarelto Hypertension -- BP stable not on medications observe Asthma on albuterol PRN Stable Metastatic carcinoid tumor Follow with Dr. Galindo On radiation therapy every 8 weeks stable DVT prophylaxis Xarelto on hold due to hematoma SCD Code Status Full Code Disposition lives at home with PT OT ordered Subjective Follow-up for dizziness status post fall Seen resting in bed, comfortable, just had a meal States dizziness with standing is a little less today Next headache, nausea, change in vision, focal neurologic symptoms Right knee pain slightly improved No other other symptoms Review of Systems Review of Systems: All systems reviewed & are unremarkable except as noted in HPI & below Physical Exam Physical Exam: General- oriented x 3, not in distress, speaks in sentences with no effort or accessory muscle use Head left frontal hematoma, proving Eyes-bilateral periorbital hematoma Left eyelid less swollen EOMs full and intact No visual problems Neck- no JVD Lungs- clear breath sounds bilaterally Heart- normal rate, regular rhythm; no murmurs Abdomen- normal bowel sounds, nondistended, soft, nontender Extremities- no pretibial edema, no calf tenderness Right knee-mild swelling, no warmth or tenderness Neuro- alert, oriented x 3; no gross focal neurologic deficits Skin- warm & dry Results & Data Vital Signs (Past 12 Hours) Vital Signs Temp Pulse Pulse Resp BP BP BP 03/05/19 19:08 37.0 C 61 20 119/69 03/05/19 15:47 36.8 C 65 58 L 18 151/85 H 03/05/19 12:28 36.9 C 60 20 114/60 Pulse Ox 03/05/19 19:08 96 03/05/19 15:47 98 03/05/19 12:28 98 Laboratory Results Laboratory Results - last 24 hr 03/05/19 03/05/19 03/05/19 12:39 12:39 12:40 WBC 7.05 RBC 4.01 L Hgb 11.9 L Hct 37.0 MCV 92.3 MCH 29.7 MCHC 32.2 RDW Std Deviation 58.4 H RDW Coeff of Myra 17.2 H Plt Count 254 MPV 11.1 H Immature Gran % (Auto) 0.1 Neut % (Auto) 73.3 Lymph % (Auto) 12.5 [place] % (Auto) 10.9 Eos % (Auto) 2.6 Baso % (Auto) 0.6 Immature Gran # (Auto) 0.01 Neut # (Auto) 5.17 Lymph # (Auto) 0.88 L [place] # (Auto) 0.77 H Eos # (Auto) 0.18 Baso # (Auto) 0.04 Sodium 141 Potassium 3.7 Chloride 106 Carbon Dioxide 30 Anion Gap 5.0 BUN 11 Creatinine 0.90 Est Cr Clr Drug Dosing 50.1 Est GFR ( Amer) 73.0 Est GFR (Non-Af Amer) 63.0 BUN/Creatinine Ratio 12.7 Glucose 121 H Calcium 9.0 Random Cortisol 12.88 (1) Fall at home Encounter type: initial encounter Qualified Code(s): W19.XXXA - Unspecified fall, initial encounter; Y92.009 - Unspecified place in unspecified non- institutional (private) residence as the place of occurrence of the external cause
--- NOTE | 2019-03-05 21:25 | CT Scan Report ---
CT head/brain wo con CLINICAL HISTORY: 74 years-old Female presenting with periorbital hematoma, r/o intracranial bleed. TECHNIQUE: Multidetector CT imaging of the head was performed without the use of intravenous contrast . IV contrast: None. One or more dose lowering techniques were used consistent with the principles of ALARA (as low as reasonably achievable), including automatic exposure control, mA or kV adjustment t o individual patient size, and/or use of iterative reconstruction. COMPARISON: 03/03/2019. CT DOSE (mGy.cm): The estimated cumulative dose is 537.48 mGy.cm. FINDINGS: [employer] topogram: The patient is edentulous. Ventricles and sulci normal in size. Redemonstration of the focus of fat within the right lateral ricardo tricle likely related to the choroid plexus, possibly lipoma or dermoid. This is unchanged. No hemorr kayley. Brain parenchyma normal in appearance with preserved oro-white differentiation. No acute cindy torial infarct. No mass effect or midline shift. No extra-axial fluid collection. Paranasal sinuses a nd mastoid air cells clear. Calvarium intact. Hematoma in the subcutaneous tissue of the left frontal scalp. IMPRESSION: 1. Chronic small vessel ischemic change. No acute intracranial abnormality. 2. Left frontal scalp hematoma as on prior exam. ACT 112: Negative or not required by law. Electronically signed by: Shailesh Espino M.D. 03/05/2019 9:24 PM
[2019-03-06] MEDS: SODIUM CHLORIDE 0.9% 1000ML 1,000 ML IV SCH (06:41)
[2019-03-06] MEDS ORDERED: COSYNTROPIN 1 MCG in SYRINGE 0 ML IV ONE (07:30)
[2019-03-06] MEDS: CHOLECALCIFEROL 1,000 UNITS TAB PO SCH (09:52)
[2019-03-06] MEDS: DiphenhydrAMINE HCL 50 MG/ML VIAL IV PRN (09:54)
--- NOTE | 2019-03-06 13:05 | Hospitalist Progress Note ---
Date of Service March 06, 2019 Assessment & Plan (1) Fall at home: s/p fall, orthostatic hypotension -74 years old female on Xarelto for A. fib presented to the ER after fall CT head showed no acute intracranial abnormality. left prefrontal soft tissue hematoma which then progressed to bilateral periorbital hematoma -patient has positive orthostatic hypotension -patient has completed IV fluids Bilateral periorbital hematoma -from fall and bruising is exacerbated by chronic use of Xarelto -03/03/2019 CT Head: No acute intracranial abnormality. Extracranial left prefrontal soft tissue hematoma. -03/05/[address]: Chronic small vessel ischemic change. No acute intracranial abnormality. Left frontal scalp hematoma as on prior exam. -03/05/[address]:Minimally displaced fracture within the nasal process of the left maxilla. Left periorbital soft tissue hematoma and right infraorbital soft tissue swelling. -Xarelto has been held during this hospital stay -Patient should follow up with outpatient [facility] Oncology appointment on 03/07/2019; Patient should follow up with primary care Dr. Cullen on 03/12/2019 at [facility]. Appointment is for 11:20 AM. Patient should arrive to check into to clinic at 11:05 AM. Patient should avoid Xarelto for now given facial bruising and to prevent recurrent bleed if falls down again. Hospitalist discussed with patient that since patient was on Xarelto for paroxysmal atrial fibrillation and that currently in sinus rhythm in the hospital, then there is less risk of stroke at this time. Patient has history of cancer and follows with oncology and cancer can increase risk of blood clots. Therefore, patient should resume Xarelto only after close follow up with outpatient oncology and primary care doctors Paroxysmal atrial fibrillation -currently in normal sinus rhythm -not on metoprolol because of history of bradycardia Metastatic carcinoid tumor -Follow with Dr. Galindo -On radiation therapy every 8 weeks Right knee tenderness -Xray of right knee showed significant to severe degenerative change all major joint compartments. Very small joint effusion. Bone cyst proximal tibia. -patient declined Ortho evaluation -patient was evaluated by PT/OTand cleared for return home physically Hypertension Orthostatic Hypotension -blood pressure medications avoided at this time because of orthostatic hypotension -blood pressure management as per primary care doctor after hospital discharge Nausea/Vomiting -Hx of nausea on/off due to carcinoid tumor that has been stable -nausea/vomiting has resolved Asthma -on albuterol PRN -no current asthma exacerbatione DVT prophylaxis: SCDs while in hospital Discharge diagnosis: s/p fall, orthostatic hypotension, paroxysmal atrial fibrillation, bilateral periorbital hematoma (Facial CT: Minimally displaced fracture within the nasal process of the left maxilla. Left periorbital soft tissue hematoma and right infraorbital soft tissue swelling), Metastatic carcinoid tumor Subjective patient comfortable. not dizzy on exam. no headache. no shortness of breath. no chest pain. no abdominal pain. no vomiting. no nausea Review of Systems Review of Systems: All systems reviewed & are unremarkable except as noted in HPI & below Physical Exam Constitutional: comfortable Eyes: PERRL, EOM intact bilaterally and + periorbital abnormality (bilateral facial bruising) Neck: normal visual inspection Respiratory: normal respiratory effort, lungs clear to auscultation Cardiovascular: Rate/Rhythm: regular rate and regular rhythm Gastrointestinal (Abdomen): normal bowel sounds, soft, nontender, no hepatosplenomegaly Musculoskeletal: no cyanosis or clubbing, extremities motor strength 5/5 Neurologic: PERRL, EOMI, accommodation nl, no face palsy, no dysarthria CN's II-XI intact bilaterally Psychiatric: A+Ox3, euthymic affect Results & Data Vital Signs (Past 12 Hours) Vital Signs Temp Pulse Pulse Resp BP BP Pulse Ox 03/06/19 12:15 37.1 C 74 20 169/98 H 98 03/06/19 07:08 84 03/06/19 06:57 37.1 C 57 L 18 154/79 H 97 03/06/19 03:08 36.9 C 72 18 164/79 H 99 (1) Fall at home Encounter type: initial encounter Qualified Code(s): W19.XXXA - Unspecified fall, initial encounter; Y92.009 - Unspecified place in unspecified non- institutional (private) residence as the place of occurrence of the external cause
--- NOTE | 2019-03-06 13:18 | Discharge Summary ---
Date of Service March 06, 2019 Admission HPI Per Admitting Provider 74 years old female with past medical history of A. fib on Xarelto, carcinoid tumor, asthma presented to the ER after a fall. Patient said this morning while getting out of the shower her leg felt weak, when she tried to reach for the walker she fell in top of the hamper and hit her head on the wall. Patient said that she was fine before she fell and did not have any symptom of dizziness or lightheaded. Daughter said right after the fall patient developed lightheadedness and felt nauseated; then she had an episode of greenish like vomiting and multiple episodes episodes in the ER. Daughter said patient has been doing well lately. She has not has much nausea or diarrhea lately and tolerated the radiation very well. She has a large hematoma in the left orbital area that is tender to touch. She said the pain improved with IV Tylenol that was given in the ER. denies any chest pain, palpitation, dizziness, and shortness of breath. Admission Exam Per Admitting Provider General- No acute distress Head- Left prefrontal hematoma/ecchymoses Eyes- large hematoma, ecchymoses and tenderness in the left orbital area ENT- oropharynx clear Neck- supple, no JVD Lungs- clear to auscultation Heart- regular rhythm; no murmur Abdomen- normal bowel sounds, soft, nontender Extremities- no calf tenderness, R knee tenderness Neuro- alert, oriented, PERRL, EOMI; no facial palsy; no dysarthria Skin- warm & dry Principal Diagnosis s/p fall, orthostatic hypotension, paroxysmal atrial fibrillation, bilateral periorbital hematoma (Facial CT: Minimally displaced fracture within the nasal process of the left maxilla. Left periorbital soft tissue hematoma and right infraorbital soft tissue swelling), Metastatic carcinoid tumor Discharge Exam Constitutional comfortable Eyes PERRL, EOM intact bilaterally and + periorbital abnormality (bilateral facial bruising) Neck normal visual inspection Respiratory normal respiratory effort, lungs clear to auscultation Cardiovascular Rate/Rhythm: regular rate and regular rhythm Gastrointestinal (Abdomen) normal bowel sounds, soft, nontender, no hepatosplenomegaly Musculoskeletal no cyanosis or clubbing, extremities motor strength 5/5 Neurologic PERRL, EOMI, accommodation nl, no face palsy, no dysarthria CN's II-XI intact bilaterally Psychiatric A+Ox3, euthymic affect Discharge Data Allergies Allergy/AdvReac Type Severity Reaction Status Date / Time nut - unspecified Allergy Severe throat Verified 03/03/19 12:55 swelling aspirin Allergy Intermediate "ASTHMA" Verified 03/03/19 12:55 celecoxib Allergy Intermediate "ASTHMA Verified 03/03/19 12:55 ATTACK" codeine Allergy Intermediate "FACE Verified 03/03/19 12:55 PUFFS UP" morphine Allergy Intermediate "FACE Verified 03/03/19 12:55 PUFFS UP" latex Allergy Mild RASH Verified 03/03/19 12:55 caffeine AdvReac Intermediate HEADACHE Verified 03/03/19 12:55 midazolam AdvReac Intermediate extreme Verified 03/03/19 12:55 anxiety fentanyl AdvReac Mild DELIRIUM Verified 03/03/19 12:55 lorazepam AdvReac Mild ANXIOUS Verified 03/03/19 12:55 Consultations 03/03/19 16:54 ED Decision to Admit Stat 03/06/19 07:46 Consult Case Management - Discharge Planning Routine Ordered Studies 03/03/19 12:02 CT head/brain wo con Stat 03/05/19 13:16 CT facial bones wo con Urgent 03/05/19 20:30 CT head/brain wo con Stat Hospital Course (1) Fall at home: s/p fall, orthostatic hypotension -74 years old female on Xarelto for A. fib presented to the ER after fall CT head showed no acute intracranial abnormality. left prefrontal soft tissue hematoma which then progressed to bilateral periorbital hematoma -patient has positive orthostatic hypotension -patient has completed IV fluids Bilateral periorbital hematoma -from fall and bruising is exacerbated by chronic use of Xarelto -03/03/2019 CT Head: No acute intracranial abnormality. Extracranial left prefr ontal soft tissue hematoma. -03/05/[address]: Chronic small vessel ischemic change. No acute intracranial abnormality. Left frontal scalp hematoma as on prior exam. -03/05/[address]:Minimally displaced fracture within the nasal process of the left maxilla. Left periorbital soft tissue hematoma and right infraorbital soft tissue swelling. -Xarelto has been held during this hospital stay -Patient should follow up with outpatient [facility] Oncology appointment on 03/07/2019; Patient should follow up with primary care Dr. Cullen on 03/12/2019 at [facility]. Appointment is for 11:20 AM. Patient should arrive to check into to clinic at 11:05 AM. Patient should avoid Xarelto for now given facial bruising and to prevent recurrent bleed if falls down again. Hospitalist discussed with patient that since patient was on Xarelto for paroxysmal atrial fibrillation and that currently in sinus rhythm in the hospital, then there is less risk of stroke at this time. Patient has history of cancer and follows with oncology and cancer can increase risk of blood clots. Therefore, patient should resume Xarelto only after close follow up with outpatient oncology and primary care doctors Paroxysmal atrial fibrillation -currently in normal sinus rhythm -not on metoprolol because of history of bradycardia Metastatic carcinoid tumor -Follow with Dr. Galindo -On radiation therapy every 8 weeks Right knee tenderness -Xray of right knee showed significant to severe degenerative change all major joint compartments. Very small joint effusion. Bone cyst proximal tibia. -patient declined Ortho evaluation -patient was evaluated by PT/OTand cleared for return home physically Hypertension Orthostatic Hypotension -blood pressure medications avoided at this time because of orthostatic hypotension -blood pressure management as per primary care doctor after hospital discharge Nausea/Vomiting -Hx of nausea on/off due to carcinoid tumor that has been stable -nausea/vomiting has resolved Asthma -on albuterol PRN -no current asthma exacerbatione DVT prophylaxis: SCDs while in hospital Discharge diagnosis: s/p fall, orthostatic hypotension, paroxysmal atrial fib rillation, bilateral periorbital hematoma (Facial CT: Minimally displaced fracture within the nasal process of the left maxilla. Left periorbital soft tissue hematoma and right infraorbital soft tissue swelling), Metastatic carcinoid tumor Total Time Total Time Spent Total Time Spent (In Minutes): 40 minutes Total Time Includes: Examination of the Patient, Discharge Planning, Medication Reconciliation and Communication With Other Providers Discharge Plan Discharge Items Patient Disposition: Home - Self-Care Reason For Visit: S/P FALL Discharge Diagnosis: s/p fall, orthostatic hypotension, paroxysmal atrial fibrillation, bilateral periorbital hematoma (Facial CT: Minimally displaced fracture within the nasal process of the left maxilla. Left periorbital soft tissue hematoma and right i nfraorbital soft tissue swelling), Metastatic carcinoid tumor Condition on Discharge: Good Activity: Resume your previous activity Non-emergency contact: Primary Care Provider Call non-emergency contact if: you have any medication questions Follow-up/Referrals: Genia Cullen, DO [Primary Care Provider] - Diet: Heart Healthy Addtl Attending Provider Instructions: Patient should follow up with outpatient [facility] Oncology appointment on 03/07/2019 Patient should follow up with primary care Dr. Cullen on 03/12/2019 at [facility]. Appointment is for 11:20 AM. Patient should arrive to check into to clinic at 11:05 AM. Patient should avoid Xarelto for now given facial bruising and to prevent recurrent bleed if falls down again. Hospitalist discussed with patient that since patient was on Xarelto for paroxysmal atrial fibrillation and that currently in sinus rhythm in the hospital, then there is less risk of stroke at this time. Patient has history of cancer and follows with oncology and cancer can increase risk of blood clots. Therefore, patient should resume Xarelto only after close follow up with outpatient oncology and primary care doctors Pending Studies at Discharge: No Stand-Alone Forms: My [facility] ODEC, Smoking Cessation Medications and DC Order Prescriptions: Continued Somatuline [place] 120 mg/0.5 mL syringe 0 mg SQ MONTHLY RF: 0 acetaminophen [Tylenol] 325 mg tablet 325 mg PO Q6H PRN (Reason: pain/fever) RF: 0 cholecalciferol (vitamin D3) [Vitamin D3] 2,000 unit Capsule 2,000 units PO QAM RF: 0 albuterol sulfate 90 mcg/actuation aerosol powdr breath activated 2 puffs INH Q6H PRN (Reason: shortness of breath or wheezing) Qty: 1 RF: 1 ondansetron HCl 8 mg tablet 8 mg PO Q8H PRN (Reason: Nausea) RF: 0 Discontinued Xarelto 20 mg tablet 20 mg PO HS RF: 0 Benadryl 12.5 mg 12.5 mg PO DAILY RF: 0 Discharge Orders: Discharge Order (Routine); Ordered 03/06/19 Ordered By: Tunde Noguera Admission Data Admit Date/Time: 03/03/19 18:47 Attending Provider: Tunde Noguera Admit Provider: Kayla Werner Primary Care Provider: Genia Cullen Other Providers: Kayla Werner
== END 2019-03-06 16:01 | disposition home health service (06) | DRG 312 ==
LOC: ED 11:19 → SUATTDRO 18:47 → 2N 18:47

== ENCOUNTER 2019-07-21 20:34 | Inpatient (IN) ==
[2019-07-21 21:38] LABS: Basophils # (auto) 0.02 K/uL (0-0.2); Basophils % (auto) 0.6 %; Eosinophils # (auto) 0.09 K/uL (0-0.5); Eosinophils % (auto) 2.6 %; Hemoglobin 11.7 g/dL (12.0-16.0); Immature Granulocytes # (auto) 0.01 K/uL (0.00-0.02); Immature Granulocytes % (auto) 0.3 %; Lymphocytes # (auto) 0.95 K/uL (1.2-3.4); Lymphocytes % (auto) 27.5 %; Mean Corpuscular Hemoglobin 31.5 pg (25-34); Mean Corpuscular Hgb Conc 33.4 g/dL (32-36); Mean Corpuscular Volume 94.1 fL (80-100); Mean Platelet Volume 10.4 fL (7.4-10.4); Monocytes # (auto) 0.64 K/uL (0.11-0.59); Monocytes % (auto) 18.5 %; Neutrophils # (auto) 1.75 K/uL (1.4-6.5); Neutrophils % (auto) 50.5 %; Platelet Count 269 K/uL (130-400); RDW Coefficient of Variation 14.6 % (11.5-14.5); RDW Standard Deviation 49.8 fL (36.4-46.3); Red Blood Count 3.72 M/uL (4.2-5.4); White Blood Count 3.46 K/uL (4.8-10.8)
[2019-07-21 22:01] LABS: Alanine Aminotransferase 17 U/L (12-78); Aspartate Aminotransferase 20 U/L (15-37); BUN Creatinine Ratio 16.6 (10-20); Blood Urea Nitrogen 15 mg/dl (7-18); Calcium 8.7 mg/dl (8.5-10.1); Carbon Dioxide 27 mmol/L (21-32); Chloride 103 mmol/L (98-107); Creatinine Clr Calc Pharmacy 46.5 ml/min; Est GFR (African American) 71.1; Est GFR (Non-African American) 61.3; Glucose 127 mg/dl (70-99); Lipase 37 U/L (73-393); Potassium 3.3 mmol/L (3.5-5.1); Sodium 137 mmol/L (136-145)
[2019-07-21 22:04] LABS: Albumin Globulin Ratio 0.7 (0.9-2); Alkaline Phosphatase 162 U/L (45-117); Bilirubin,Total 0.7 mg/dl (0.2-1)
--- NOTE | 2019-07-21 22:09 | Emergency Department Note ---
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 The patient states that this past Tuesday she began with generalized abdominal discomfort noting that she has not had a bowel movement since Tuesday. She denies any history of bowel obstructions. She states that the discomfort at this time is a 1/10 and is very mild at rest but when she is active and moves the pain is worse. There is associated nausea. She denies any fevers, chills, chest pain, shortness of breath or vomiting. She follows locally with Dr. Stanton shoemaker for her cancer. Home Medications Home Medications Medication Instructions Recorded Confirmed Type cholecalciferol (vitamin D3) 2,000 units PO QAM 04/09/18 07/21/19 History [Vitamin D3] albuterol sulfate 2 puffs INH Q6H PRN #1 ea 08/15/18 07/21/19 Rx acetaminophen 325 mg tablet 325 mg PO Q6H PRN 12/13/18 07/21/19 History lanreotide 120 mg/0.5 mL 0 mg SQ MONTHLY ml 12/13/18 07/21/19 History subcutaneous syringe Allergies Allergy/AdvReac Type Severity Reaction Status Date / Time nut - unspecified Allergy Severe throat Verified 07/21/19 21:17 swelling aspirin Allergy Intermediate "ASTHMA" Verified 07/21/19 21:17 celecoxib Allergy Intermediate "ASTHMA Verified 07/21/19 21:17 ATTACK" codeine Allergy Intermediate "FACE Verified 07/21/19 21:17 PUFFS UP" morphine Allergy Intermediate "FACE Verified 07/21/19 21:17 PUFFS UP" latex Allergy Mild RASH Verified 07/21/19 21:17 caffeine AdvReac Intermediate HEADACHE Verified 07/21/19 21:17 midazolam AdvReac Intermediate extreme Verified 07/21/19 21:17 anxiety fentanyl AdvReac Mild DELIRIUM Verified 07/21/19 21:17 lorazepam AdvReac Mild ANXIOUS Verified 07/21/19 21:17 Past Med/Surg History Medical History Anal fistula (Chronic) Asthma (Chronic) NO INHALER Atrial fibrillation (Chronic) On Xarelto 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 [facility], Dr. Escalera. Receiving Sandostatin injection monthly. Chronic anticoagulation (Chronic) Coronary vasospasm (Chronic) Hemorrhoids (Chronic) Hyperlipidemia (Chronic) BORDERLINE Hypertension (Chronic) Interstitial cystitis (Chronic) Liver cancer (Chronic) Osteoarthritis (Chronic) Perirectal abscess (Chronic) Proctocolitis UTI (urinary tract infection) Surgical History History of cardiac cath (Chronic) [facility] 2016; "Normal coronary arteries." History of dilatation and curettage (Chronic) History of hysterectomy (Chronic) History of liver biopsy (Chronic) History of tonsillectomy and adenoidectomy (Chronic) History of tooth extraction (Chronic) S/P appendectomy (Chronic) S/P cholecystectomy (Chronic) Family History Sister Family history of diabetes mellitus Social History Preferred Language: Turkmen Communication Ability: Effective 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 Beliefs That Will Affect Care: None marital status: Current Living Situation: Spouse and Family Other Information That Helps Us Care for You: No Feels Safe at Home: Yes Safety Concerns: Feels Safe At This Time Smoking Status: Never smoker Second Hand Exposure: No ; Hx Alcohol Use: No Hx Substance Use: No Review of Systems A total of 10 systems reviewed and were otherwise negative Physical Exam Vital Signs Vital Signs - 24 hr 07/21/19 20:43 07/21/19 21:15 07/21/19 21:20 Temperature 37.2 C Temperature Source Oral Pulse Rate 78 70 69 Pulse Rate [Right Finger] Pulse Rate from SpO2 Sensor 71 68 Pulse Rhythm Regular Pulse Rhythm [Right Finger] Pulse Strength Normal Pulse Strength [Right Finger] Respiratory Rate 20 17 15 Respiratory Effort / Characteristics Non-Labored Spontaneous Respiratory Depth Normal Respiratory Pattern Regular Blood Pressure 114/76 Blood Pressure [Right Arm] Blood Pressure Mean 88 Blood Pressure Mean [Right Arm] Blood Pressure Position Sitting Blood Pressure Position [Right Arm] Pulse Oximetry 97 96 95 Oxygen Delivery Method Room Air Sepsis Recent Fever Within 48 Hours No Sepsis Action Taken by Nursing No Action Required 07/21/19 21:30 07/21/19 21:32 07/21/19 21:40 Temperature Temperature Source Pulse Rate 67 62 Pulse Rate [Right Finger] Pulse Rate from SpO2 Sensor 66 62 Pulse Rhythm Pulse Rhythm [Right Finger] Pulse Strength Pulse Strength [Right Finger] Respiratory Rate 16 16 Respiratory Effort / Characteristics Respiratory Depth Respiratory Pattern Blood Pressure 136/75 Blood Pressure [Right Arm] Blood Pressure Mean 87 Blood Pressure Mean [Right Arm] Blood Pressure Position Blood Pressure Position [Right Arm] Pulse Oximetry 96 96 96 Oxygen Delivery Method Room Air Sepsis Recent Fever Within 48 Hours Sepsis Action Taken by Nursing 07/21/19 21:50 07/21/19 22:00 07/21/19 22:10 Temperature Temperature Source Pulse Rate 70 62 61 Pulse Rate [Right Finger] Pulse Rate from SpO2 Sensor 70 61 61 Pulse Rhythm Pulse Rhythm [Right Finger] Pulse Strength Pulse Strength [Right Finger] Respiratory Rate 16 14 19 Respiratory Effort / Characteristics Respiratory Depth Respiratory Pattern Blood Pressure 153/84 H Blood Pressure [Right Arm] Blood Pressure Mean 98 Blood Pressure Mean [Right Arm] Blood Pressure Position Blood Pressure Position [Right Arm] Pulse Oximetry 97 96 95 Oxygen Delivery Method Sepsis Recent Fever Within 48 Hours Sepsis Action Taken by Nursing 07/21/19 22:20 07/21/19 22:40 07/21/19 22:41 Temperature Temperature Source Pulse Rate 65 67 62 Pulse Rate [Right Finger] 68 Pulse Rate from SpO2 Sensor 65 69 63 Pulse Rhythm Pulse Rhythm [Right Finger] Regular Pulse Strength Pulse Strength [Right Finger] Normal Respiratory Rate 15 18 15 Respiratory Effort / Characteristics Respiratory Depth Respiratory Pattern Blood Pressure 165/66 H Blood Pressure [Right Arm] 165/86 H Blood Pressure Mean 92 Blood Pressure Mean [Right Arm] 112 Blood Pressure Position Blood Pressure Position [Right Arm] Sitting Pulse Oximetry 98 97 99 Oxygen Delivery Method Sepsis Recent Fever Within 48 Hours Sepsis Action Taken by Nursing 07/21/19 23:49 Temperature Temperature Source Pulse Rate Pulse Rate [Right Finger] 66 Pulse Rate from SpO2 Sensor Pulse Rhythm Pulse Rhythm [Right Finger] Regular Pulse Strength Pulse Strength [Right Finger] Normal Respiratory Rate 20 Respiratory Effort / Characteristics Non-Labored Spontaneous Respiratory Depth Normal Respiratory Pattern Regular Blood Pressure Blood Pressure [Right Arm] 130/65 Blood Pressure Mean Blood Pressure Mean [Right Arm] 86 Blood Pressure Position Blood Pressure Position [Right Arm] Pulse Oximetry 97 Oxygen Delivery Method Room Air Sepsis Recent Fever Within 48 Hours Sepsis Action Taken by Nursing VITAL SIGNS - Vital signs and nursing notes were reviewed. Stable and afebrile. GENERAL -74-year-old female appearing her stated age who is in no acute distress. Communicates well with provider and answers questions appropriately. SKIN - Without rashes. No meningeal or petechial rash. HEAD - NC/AT. EYES - PERRL with EOMI bilaterally. Sclera anicteric. EARS - No deformities of external structures noted on gross examination bilaterally. NOSE - Midline and without cyanosis. MOUTH/OROPHARYNX - Without perioral cyanosis. Buccal mucosa pink and moist and without leukoplakia. NECK - Neck with FROM. No nuchal rigidity. LUNGS - Chest wall symmetric without accessory muscle use, intercostals retractions, or central cyanosis. Normal vesicular breath sounds CTA B/L. No wheezes, rales, or rhonchi appreciated. CARDIAC - RRR with S1/S2. No murmur, rubs, or gallops appreciated. ABDOMEN - Abdominal contour normal without pulsations or visible masses. Bowel sounds are normoactive but there is generalized abdominal tenderness and some distention noted on examination. The abdomen is soft and nonrigid. NEUROLOGIC - Cranial nerves II through XII grossly intact. PSYCH - A&Ox3 and cooperates fully with examiner. Pt is very pleasant and int eracts well with examiner. Course Administered Medications Potassium Chloride 40 meq/ (Sodium Chloride) 1,020 mls @ 60 mls/hr IV .Q17H [facility] Stop: 08/21/19 01:14 Last Admin: 07/22/19 03:50 Dose: 60 mls/hr Documented by: [id number] Ceftriaxone Sodium 1,000 mg/ (Dextrose) 50 mls @ 100 mls/hr IV Q24H [facility] Stop: 08/01/19 01:59 Last Infusion: 07/22/19 04:57 Dose: 0 mls/hr Documented by: [id number] Admin: 07/22/19 03:50 Dose: 100 mls/hr Documented by: [id number] Insulin Aspart (Novolog Flexpen) 0 units SC Q6 [facility] Stop: 08/21/19 01:59 Last Admin: 07/22/19 06:45 Dose: Not Given Documented by: [id number] Cosigned by: [id number] Admin: 07/22/19 03:26 Dose: Not Given Documented by: [id number] Cosigned by: [id number] Discontinued Medications Acetaminophen (Ofirmev) 1,000 mg in 100 mls @ 400 mls/hr IV NOW STA Stop: 07/21/19 23:44 Last Infusion: 07/22/19 02:03 Dose: 0 mls/hr Documented by: [id number] Admin: 07/21/19 23:40 Dose: 400 mls/hr Documented by: [id number] Ioversol (Optiray 320 100ml) 95 ml IV ONCE PRN PRN Reason: Interaction Checking Stop: 07/25/19 22:30 Last Admin: 07/21/19 22:31 Dose: 95 ml Documented by: [id number] Lactulose (Chronulac) 30 gm PO NOW STA Stop: 07/22/19 01:14 Last Admin: 07/22/19 01:28 Dose: Not Given Documented by: [id number] Lactulose (Chronulac) 30 gm PO NOW STA Stop: 07/22/19 05:37 Last Admin: 07/22/19 06:35 Dose: Not Given Documented by: [id number] Polyethylene Glycol (Miralax Powder Packet) 17 gm PO NOW STA Stop: 07/22/19 01:10 Last Admin: 07/22/19 01:27 Dose: 17 gm Documented by: [id number] Potassium Chloride (Klor-Con M20) 40 meq PO NOW STA Stop: 07/21/19 23:43 Last Admin: 07/22/19 00:13 Dose: 40 meq Documented by: [id number] Senna/Docusate Sodium (Senokot S) 1 tab PO NOW STA Stop: 07/22/19 01:10 Last Admin: 07/22/19 01:26 Dose: 1 tab Documented by: [id number] Medical Decision Making Laboratory Data Result diagrams: 07/22/19 05:05 07/22/19 05:05 Lab Results 07/21/19 07/21/19 07/21/19 Range/Units 21:30 21:30 23:18 WBC 3.46 L (4.8-10.8) K/uL RBC 3.72 L (4.2-5.4) M/uL Hgb 11.7 L (12.0-16.0) g/dL Hct 35.0 L (37-47) % MCV 94.1 (80-100) fL MCH 31.5 (25-34) pg MCHC 33.4 (32-36) g/dL RDW Std Deviation 49.8 H (36.4-46.3) fL RDW Coeff of Myra 14.6 H (11.5-14.5) % Plt Count 269 (130-400) K/uL MPV 10.4 (7.4-10.4) fL Immature Gran % (Auto) 0.3 % Neut % (Auto) 50.5 % Lymph % (Auto) 27.5 % Hubbard % (Auto) 18.5 % Eos % (Auto) 2.6 % Baso % (Auto) 0.6 % Immature Gran # (Auto) 0.01 (0.00-0.02) K/uL Neut # (Auto) 1.75 (1.4-6.5) K/uL Lymph # (Auto) 0.95 L (1.2-3.4) K/uL Hubbard # (Auto) 0.64 H (0.11-0.59) K/uL Eos # (Auto) 0.09 (0-0.5) K/uL Baso # (Auto) 0.02 (0-0.2) K/uL Sodium 137 (136-145) mmol/L Potassium 3.3 L (3.5-5.1) mmol/L Chloride 103 (98-107) mmol/L Carbon Dioxide 27 (21-32) mmol/L Anion Gap 8.0 (3-11) BUN 15 (7-18) mg/dl Creatinine 0.92 (0.6-1.2) mg/dl Est Cr Clr Drug Dosing 46.5 ml/min Est GFR ( Amer) 71.1 Est GFR (Non-Af Amer) 61.3 BUN/Creatinine Ratio 16.6 (10-20) Glucose 127 H (70-99) mg/dl Calcium 8.7 (8.5-10.1) mg/dl Magnesium 2.0 (1.8-2.4) mg/dl Total Bilirubin 0.7 (0.2-1) mg/dl AST 20 (15-37) U/L ALT 17 (12-78) U/L Alkaline Phosphatase 162 H (45-117) U/L Troponin I < 0.015 (0-0.045) ng/ml Total Protein 7.0 (6.4-8.2) gm/dl Albumin 3.0 L (3.4-5.0) gm/dl Globulin 4.0 (2.5-4.0) gm/dl Albumin/Globulin Ratio 0.7 L (0.9-2) Lipase 37 L (73-393) U/L Urine Color Yellow Urine Appearance Clear (Clear) Urine pH 5.0 (4.5-7.5) Ur Specific [place] 1.028 (1.000-1.030) Urine Protein Negative (Negative) Urine Glucose (UA) Negative (Negative) Urine Ketones Negative (Negative) Urine Blood Negative (Negative) Urine Nitrite Negative (Negative) Urine Bilirubin Negative (Negative) Urine Urobilinogen Negative (Negative) Ur Leukocyte Esterase 2+ H (Negative) Urine WBC (Auto) 1-5 (0-5) /hpf Urine RBC (Auto) 0-4 (0-4) /hpf U Hyaline Cast (Auto) 1-5 (0-5) /lpf U Epithel Cells (Auto) 20-30 H (0-5) /lpf Urine Bacteria (Auto) Negative (Negative) Imaging Data Radiologist's Impression: ABDOMEN AND PELVIS CT WITH IV CONTRAST CT DOSE: 300.21 mGy.cm HISTORY: Generalized abdominal Pain, no bowel movement, liver cancer with mets to small intestine TECHNIQUE: Multiaxial CT images of the abdomen and pelvis were performed following the use of intravenous contrast. A dose lowering technique was utilized adhering to the principles of ALARA. COMPARISON STUDY: Abdomen and pelvis CT 10/21/2018. FINDINGS: Bibasilar linear densities likely represent subsegmental atelectasis. No pneumoperitoneum. No pneumatosis. 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 No suspicious lytic or blastic osseous lesions. Gallbladder is surgically absent. Moderate intrahepatic bile duct dilatation, unchanged. Decrease in size in the necrotic hepatic masses. For comparative purposes the dominant mass within the right hepatic lobe currently measures 8 cm, previously measuring 11 cm. The spleen, pancreas, adrenal glands, and kidneys are unremarkable. No hydronephrosis. No retroperitoneal lymphadenopathy. Normal bladder. The uterus is surgically absent. Moderate well-formed stool within the colon. Multiple thickened loops of small bowel within the left lower quadrant and deep pelvis. This favors the jejunum. There is also a distended jejunal loop within the left midabdomen measuring up to 4.3 cm. Distal to this loop there is a soft tissue mass within the mesentery that measures approximately 3.3 x 2.5 cm. This is concerning for a carcinoid tumor or metastatic disease. This appears to represent the transition point for the partial small bowel obstruction. The jejunal loops distal to this mass are also mildly thickened. This mesenteric mass also encases and narrows multiple mesenteric vessels. Therefore, the bowel wall thickening could be due vascular engorgement or a nonspecific enteritis. IMPRESSION: 1. Decrease in size in the metastatic lesions within the liver. 2. There is a 3.3 x 2.5 cm irregular soft tissue mass within the left side of the mesentery. This results in the transition point for a partial small bowel obstruction. This also encases the mesenteric vessels. This may represent a carcinoid tumor or metastatic disease. 3. Multiple thickened loops of small bowel within the left side of the abdomen and pelvis. This could be due to vascular engorgement secondary to the mesenteric mass or a nonspecific enteritis. 4. No change in the moderate bile duct dilatation. ACT 112: Negative or not required by law. Electronically signed by: Raymundo Chambers M.D. 07/21/2019 10:48 PM MDM Narrative Patient was seen and evaluated as above in room C7. Review was performed of nursing notes and vital signs. I did review pertinent previous visits and patie nt history. After obtaining a thorough history and physical examination the above work up was performed. She presents to us today with abdominal discomfort and no bowel movement since this past Tuesday/Tuesday. Vital signs are stable. Concern is for bowel obstruction given the patient's past medical history. She declined pain medication other than acetaminophen. This was ordered IV over concern for possible bowel obstruction. There is decrease/pancytopenia noted in blood work consistent with past medical history. No emergent metabolic disturbance. Urinalysis does not suggest infection. CT scan reveals partial small bowel obstruction. I do believe that further evaluation and management in inpatient setting is warranted. Patient was amenable to staying. While in the department, I personally reevaluated the patient several times and each time the patient was found to be resting comfortably. The patient was educated upon management, educated upon todays findings/results, educated upon importance of follow up from today's visit, educated upon symptoms in which to return, had questions answered prior to discharge, verbalized understanding, and was discharged home in good condition. Case was discussed with the attending physician. In the evaluation and treatment of this patient, the following differential diagnoses were considered: ASC, CT, Pneumonia, GERD, Cholecystitis, Ascending Cholangitis, Cholydocholithiasis, Bowel Obstruction, PE, Amongst Others. Impression & Plan Partial bowel obstruction Discharge Plan Visit Data *Final* Discharge Date/Time: 07/22/19 01:39 Chief Complaint: Abdominal Pain Stated Complaint: ABD PAIN ED Provider: Isiah Pugh ED Midlevel Provider: Cesario Ybarra Discharge Problem: Partial bowel obstruction Patient Disposition: Admitted As Inpatient Discharge Instructions Interventions: ED Discharge Assessment Last Done: 07/22/19 01:39
[2019-07-21] MEDS ORDERED: IOVERSOL 100ml IV PRN (22:31)
--- NOTE | 2019-07-21 22:49 | CT Scan Report ---
ABDOMEN AND PELVIS CT WITH IV CONTRAST CT DOSE: 300.21 mGy.cm HISTORY: Generalized abdominal Pain, no bowel movement, liver cancer with mets to small intestine TECHNIQUE: Multiaxial CT images of the abdomen and pelvis were performed following the use of intrave nous contrast. A dose lowering technique was utilized adhering to the principles of ALARA. COMPARISON STUDY: Abdomen and pelvis CT 10/21/2018. FINDINGS: Bibasilar linear densities likely represent subsegmental atelectasis. No pneumoperitoneum. No pneumatosis. 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 No suspicious lytic or b lastic osseous lesions. Gallbladder is surgically absent. Moderate intrahepatic bile duct dilatation, unchanged. Decrease in size in the necrotic hepatic masses. For comparative purposes the dominant ma ss within the right hepatic lobe currently measures 8 cm, previously measuring 11 cm. The spleen, salvador creas, adrenal glands, and kidneys are unremarkable. No hydronephrosis. No retroperitoneal lymphadeno stu. Normal bladder. The uterus is surgically absent. Moderate well-formed stool within the colon. Multiple thickened loops of small bowel within the left lower quadrant and deep pelvis. This favors t he jejunum. There is also a distended jejunal loop within the left midabdomen measuring up to 4.3 cm. Distal to this loop there is a soft tissue mass within the mesentery that measures approximately 3.3 x 2.5 cm. This is concerning for a carcinoid tumor or metastatic disease. This appears to represent the transition point for the partial small bowel obstruction. The jejunal loops distal to this mass a re also mildly thickened. This mesenteric mass also encases and narrows multiple mesenteric vessels. Therefore, the bowel wall thickening could be due vascular engorgement or a nonspecific enteritis. IMPRESSION: 1. Decrease in size in the metastatic lesions within the liver. 2. There is a 3.3 x 2.5 cm irregular soft tissue mass within the left side of the mesentery. This res ults in the transition point for a partial small bowel obstruction. This also encases the mesenteric vessels. This may represent a carcinoid tumor or metastatic disease. 3. Multiple thickened loops of small bowel within the left side of the abdomen and pelvis. This could be due to vascular engorgement secondary to the mesenteric mass or a nonspecific enteritis. 4. No change in the moderate bile duct dilatation. ACT 112: Negative or not required by law. Electronically signed by: Raymundo Chambers M.D. 07/21/2019 10:48 PM
--- NOTE | 2019-07-21 23:22 | Emergency Department Note ---
ED Visit Note Patient was seen and evaluated at the bedside w/ Cesario Ybarra PA-C. Please see their note for history, physical, details, and disposition. Patient does present with concern for abdominal discomfort. The patient does have a transition point for small bowel obstruction. No active vomiting. No infectious symptoms. .
[2019-07-21] MEDS ORDERED: ACETAMINOPHEN 1,000 MG/100 ML VIAL IV STA (23:30)
[2019-07-21 23:36] LABS: Appearance Urine Clear (Clear); Bacteria Urine Automated Negative (Negative); Bilirubin Urine Negative (Negative); Blood Urine Negative (Negative); Color Urine Yellow; Epithelial Cell Urine Auto 20-30 /lpf (0-5); Glucose Urine UA Negative (Negative); Ketones Urine Negative (Negative); Leukocyte Esterase Urine 2+ (Negative); Nitrite Urine Negative (Negative); Protein Urine Negative (Negative); RBC Urine Automated 0-4 /hpf (0-4); Specific Gravity Urine 1.028 (1.000-1.030); Urobilinogen Urine Negative (Negative)
[2019-07-21] MEDS ORDERED: PROMETHAZINE HCL 12.5 MG in SODIUM CHLORIDE 0.9% 50 ML IV PRN (23:42)
[2019-07-21] MEDS ORDERED: POTASSIUM CHLORIDE 20 MEQ TABCR PO STA (23:42)
[2019-07-21] MEDS ORDERED: TRAMADOL HCL 50 MG TABLET PO PRN (23:44)
[2019-07-21] MEDS ORDERED: HYDROmorphone INJ 0.5 MG/0.5 ML SYR IV PRN (23:44)
[2019-07-22 00:26] LABS: Troponin I < 0.015 ng/ml (0-0.045)
[2019-07-22] MEDS ORDERED: POLYETHYLENE (MIRALAX) 17 GM PACK PO STA (01:09)
[2019-07-22] MEDS ORDERED: DOCUSATE SODIUM/SENNA 50/8.6MG TAB PO STA (01:09)
--- NOTE | 2019-07-22 01:09 | History & Physical Report ---
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 [facility]alera [facility] Complicated UTI, no sepsis hx PAF, patient NSR currently not on anticoagulation secondary to fall risk Hypokalemia Hyperglycemia,new diagnosis of DM 2, hemoglobin A1c of 6.03 June 2018 chronic anemia, hemoglobin at baseline GMF Bowel rest Laxative trial NGT insertion if with emesis Surgery consult Re: Partial SBO Follow urine CS, IV Ceftriaxone for now Replace potassium ISS BG goal [id number], update hemoglobin A1c, diabetic education DVT prophylaxis per Lovenox subcu Full code Text document was generated using [employer] voice recognition software. It may contain grammatical or spelling errors. Kindly contact undersigned for clarification of any documentation item in question. History of Present Illness Chief Complaint: Abdominal pain Primary Care Provider: Genia Cullen, History obtained from patient and records. 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 Xarelto for A. fib stopped on discharge. 4 days history of generalized achy, gassy abdominal pain with nausea and obstipation. No fever. Usual chills. No chest pain, no S OB. Urine kind of brown. Patient consulted ER. 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 Allergies Allergy/AdvReac Type Severity Reaction Status Date / Time nut - unspecified Allergy Severe throat Verified 07/21/19 21:17 swelling aspirin Allergy Intermediate "ASTHMA" Verified 07/21/19 21:17 celecoxib Allergy Intermediate "ASTHMA Verified 07/21/19 21:17 ATTACK" codeine Allergy Intermediate "FACE Verified 07/21/19 21:17 PUFFS UP" morphine Allergy Intermediate "FACE Verified 07/21/19 21:17 PUFFS UP" latex Allergy Mild RASH Verified 07/21/19 21:17 caffeine AdvReac Intermediate HEADACHE Verified 07/21/19 21:17 midazolam AdvReac Intermediate extreme Verified 07/21/19 21:17 anxiety fentanyl AdvReac Mild DELIRIUM Verified 07/21/19 21:17 lorazepam AdvReac Mild ANXIOUS Verified 07/21/19 21:17 Home Medications Home Medications Medication Instructions Recorded Confirmed Type cholecalciferol (vitamin D3) 2,000 units PO QAM 04/09/18 07/21/19 History [Vitamin D3] albuterol sulfate 2 puffs INH Q6H PRN #1 ea 08/15/18 07/21/19 Rx acetaminophen 325 mg tablet 325 mg PO Q6H PRN 12/13/18 07/21/19 History lanreotide 120 mg/0.5 mL 0 mg SQ MONTHLY ml 12/13/18 07/21/19 History subcutaneous syringe Past Med/Surg History Medical History Anal fistula (Chronic) Asthma (Chronic) NO INHALER Atrial fibrillation (Chronic) On Xarelto 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 [facility], Dr. Escalera. Receiving Sandostatin injection monthly. Chronic anticoagulation (Chronic) Coronary vasospasm (Chronic) Hemorrhoids (Chronic) Hyperlipidemia (Chronic) BORDERLINE Hypertension (Chronic) Interstitial cystitis (Chronic) Liver cancer (Chronic) Osteoarthritis (Chronic) Perirectal abscess (Chronic) Proctocolitis UTI (urinary tract infection) Surgical History History of cardiac cath (Chronic) [facility] 2016; "Normal coronary arteries." History of dilatation and curettage (Chronic) History of hysterectomy (Chronic) History of liver biopsy (Chronic) History of tonsillectomy and adenoidectomy (Chronic) History of tooth extraction (Chronic) S/P appendectomy (Chronic) S/P cholecystectomy (Chronic) Family History Sister Family history of diabetes mellitus Social History Preferred Language: Maori Communication Ability: Effective 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 Beliefs That Will Affect Care: None marital status: Current Living Situation: Spouse and Family Other Information That Helps Us Care for You: No Feels Safe at Home: Yes Safety Concerns: Feels Safe At This Time Smoking Status: Never smoker Second Hand Exposure: No ; Hx Alcohol Use: No Hx Substance Use: No Review of Systems Review of Systems: As per HPI, all 10 systems reviewed, all other ROS negative Physical Exam Physical Exam: GENERAL: Comfortable, pleasant, no respiratory distress SKIN: Normal color, warm HEENT: Bespectacled, pink palpebral conjunctivae, no ptosis, dry buccal mucosa NECK : Supple, no tenderness CHEST : CTA, no tenderness HEART : RRR, no obvious murmurs ABDOMEN: Some distention, central abdominal tenderness EXTREMITIES : No LE swelling/tenderness, no other conspicuous deformities noted NEUROLOGIC : Coherent, no facial asymmetry, no other gross focality Results & Data Results & Data ([facility]) Vital Signs (Past 12 Hours) Vital Signs Temp Pulse Pulse Resp BP BP Pulse Ox 07/21/19 23:49 66 20 130/65 97 07/21/19 22:41 62 15 165/66 H 99 07/21/19 22:40 67 68 18 165/86 H 97 07/21/19 22:20 65 15 98 07/21/19 22:10 61 19 95 07/21/19 22:00 62 14 153/84 H 96 07/21/19 21:50 70 16 97 07/21/19 21:40 62 16 96 07/21/19 21:32 96 07/21/19 21:30 67 16 136/75 96 07/21/19 21:20 69 15 95 07/21/19 21:15 70 17 96 07/21/19 20:43 37.2 C 78 20 114/76 97 Laboratory Results Laboratory Results WBC 3.46 K/uL (4.8-10.8) L 07/21/19 21:30 RBC 3.72 M/uL (4.2-5.4) L 07/21/19 21:30 Hgb 11.7 g/dL (12.0-16.0) L 07/21/19 21:30 Hct 35.0 % (37-47) L 07/21/19 21:30 MCV 94.1 fL (80-100) 07/21/19 21:30 MCH 31.5 pg (25-34) 07/21/19 21:30 MCHC 33.4 g/dL (32-36) 07/21/19 21:30 RDW Std Deviation 49.8 fL (36.4-46.3) H 07/21/19 21:30 RDW Coeff of Myra 14.6 % (11.5-14.5) H 07/21/19 21: Plt Count 269 K/uL (130-400) 07/21/19 21:30 MPV 10.4 fL (7.4-10.4) 07/21/19 21:30 Immature Gran % (Auto) 0.3 % 07/21/19 21:30 Neut % (Auto) 50.5 % 07/21/19 21:30 Lymph % (Auto) 27.5 % 07/21/19 21:30 [place] % (Auto) 18.5 % 07/21/19 21:30 Eos % (Auto) 2.6 % 07/21/19 21: Baso % (Auto) 0.6 % 07/21/19 21: Immature Gran # (Auto) 0.01 K/uL (0.00-0.02) 07/21/19 21: Neut # (Auto) 1.75 K/uL (1.4-6.5) 07/21/19 21:30 Lymph # (Auto) 0.95 K/uL (1.2-3.4) L 07/21/19 21:30 [place] # (Auto) 0.64 K/uL (0.11-0.59) H 07/21/19 21:30 Eos # (Auto) 0.09 K/uL (0-0.5) 07/21/19 21: Baso # (Auto) 0.02 K/uL (0-0.2) 07/21/19 21:30 Sodium 137 mmol/L (136-145) 07/21/19 21: Potassium 3.3 mmol/L (3.5-5.1) L 07/21/19 21: Chloride 103 mmol/L (98-107) 07/21/19 21: Carbon Dioxide 27 mmol/L (21-32) 07/21/19: Anion Gap 8.0 (3-11) 07/21/19:30 BUN 15 mg/dl (7-18) 07/21/19 21: Creatinine 0.92 mg/dl (0.6-1.2) 07/21/19: Est Cr Clr Drug Dosing 46.5 ml/min 07/21/19 21:30 Est GFR ( Amer) 71.1 07/21/19 21:30 Est GFR (Non-Af Amer) 61.3 07/21/19 21:30 BUN/Creatinine Ratio 16.6 (10-20) 07/21/19 21:30 Glucose 127 mg/dl (70-99) H 07/21/19 21:30 Calcium 8.7 mg/dl (8.5-10.1) 07/21/19 21: Magnesium 2.0 mg/dl (1.8-2.4) 07/21/19 21:30 Total Bilirubin 0.7 mg/dl (0.2-1) 07/21/19 21:30 AST 20 U/L (15-37) 07/21/19 21: ALT 17 U/L (12-78) 07/21/19 21: Alkaline Phosphatase 162 U/L (45-117) H 07/21/19 21:30 Troponin I < 0.015 ng/ml (0-0.045) 07/21/19 21:30 Total Protein 7.0 gm/dl (6.4-8.2) 07/21/19 21: Albumin 3.0 gm/dl (3.4-5.0) L 07/21/19 21: Globulin 4.0 gm/dl (2.5-4.0) 07/21/19 21:30 Albumin/Globulin Ratio 0.7 (0.9-2) L 07/21/19 21: Lipase 37 U/L (73-393) L 07/21/19 21:30 Urine Color Yellow 07/21/19: Urine Appearance Clear (Clear) 07/21/19: Urine pH 5.0 (4.5-7.5) 07/21/19: Ur Specific [place] 1.028 (1.000-1.030) 07/21/19:18 Urine Protein Negative (Negative) 07/21/19: Urine Glucose (UA) Negative (Negative) 07/21/19: Urine Ketones Negative (Negative) 07/21/19: Urine Blood Negative (Negative) 07/21/19: Urine Nitrite Negative (Negative) 05/23/20 23:18 Urine Bilirubin Negative (Negative) 07/21/19 23:18 Urine Urobilinogen Negative (Negative) 07/21/19 23:18 Ur Leukocyte Esterase 2+ (Negative) H 07/21/19 23:18 Urine WBC (Auto) 1-5 /hpf (0-5) 07/21/19 23:18 Urine RBC (Auto) 0-4 /hpf (0-4) 07/21/19 23:18 U Hyaline Cast (Auto) 1-5 /lpf (0-5) 07/21/19 23:18 U Epithel Cells (Auto) 20-30 /lpf (0-5) H 07/21/19 23:18 Urine Bacteria (Auto) Negative (Negative) 07/21/19 23:[address] abdomen pelvis: 1. Decrease in size in the metastatic lesions within the liver. 2. There is a 3.3 x 2.5 cm irregular soft tissue mass within the left side of the mesentery. This results in the transition point for a partial small bowel obstruction. This also encases the mesenteric vessels. This may represent a carcinoid tumor or metastatic disease. 3. Multiple thickened loops of small bowel within the left side of the abdomen and pelvis. This could be due to vascular engorgement secondary to the mesenteric mass or a nonspecific enteritis. 4. No change in the moderate bile duct dilatation. EKG as per my interpretation: Rate 65, NSR, normal axis, incomplete LBBB, diffuse T wave abnormalities
[2019-07-22] MEDS ORDERED: POLYETHYLENE (MIRALAX) 17 GM PACK PO PRN (01:13)
[2019-07-22] MEDS ORDERED: DEXTROSE 50% 50 ML SYRINGE IV PRN (01:13)
[2019-07-22] MEDS ORDERED: ACETAMINOPHEN 325 MG TAB PO PRN (01:13)
[2019-07-22] MEDS ORDERED: GLUCAGON FOR INJ 1 MG VIAL SQ PRN (01:13)
[2019-07-22] MEDS ORDERED: LACTULOSE SYRUP 20 GM/30 ML UDC PO STA ×2 (01:13→05:36)
[2019-07-22] MEDS ORDERED: GLUCOSE 40% GEL 15 GM TUBE PO PRN (01:13)
[2019-07-22] MEDS ORDERED: GLUCOSE 10 TABS/TUBE PO PRN (01:13)
[2019-07-22] MEDS ORDERED: CARBOHYDRATES FOR HYPOGLYCEMIA PO PRN (01:13)
[2019-07-22] MEDS: INSULIN ASPART 100 UNITS/ML 3 ML PEN SC SCH ×4 (03:26→18:38)
[2019-07-22] MEDS: cefTRIAXone SODIUM 1,000 MG in DEXTROSE 5% 50 ML IV SCH (03:50)
[2019-07-22] MEDS: POTASSIUM CHLORIDE 40 MEQ in SODIUM CHLORIDE 0.9% 1000ML 1,000 ML IV SCH ×2 (03:50→20:10)
[2019-07-22 05:30] LABS: Basophils # (auto) 0.03 K/uL (0-0.2); Basophils % (auto) 1.1 %; Eosinophils # (auto) 0.12 K/uL (0-0.5); Eosinophils % (auto) 4.2 %; Hematocrit (blood only) 31.3 % (37-47); Hemoglobin 10.6 g/dL (12.0-16.0); Immature Granulocytes # (auto) 0.01 K/uL (0.00-0.02); Immature Granulocytes % (auto) 0.4 %; Lymphocytes # (auto) 0.83 K/uL (1.2-3.4); Lymphocytes % (auto) 29.3 %; Mean Corpuscular Hemoglobin 31.7 pg (25-34); Mean Corpuscular Hgb Conc 33.9 g/dL (32-36); Mean Corpuscular Volume 93.7 fL (80-100); Mean Platelet Volume 10.3 fL (7.4-10.4); Monocytes # (auto) 0.51 K/uL (0.11-0.59); Neutrophils # (auto) 1.33 K/uL (1.4-6.5); Platelet Count 234 K/uL (130-400); RDW Coefficient of Variation 14.6 % (11.5-14.5); RDW Standard Deviation 49.8 fL (36.4-46.3); Red Blood Count 3.34 M/uL (4.2-5.4); White Blood Count 2.83 K/uL (4.8-10.8)
[2019-07-22 06:03] LABS: BUN Creatinine Ratio 16.2 (10-20); Calcium 8.1 mg/dl (8.5-10.1); Creatinine Clr Calc Pharmacy 52.2 ml/min; Est GFR (African American) 80.5; Est GFR (Non-African American) 69.5; Potassium 3.7 mmol/L (3.5-5.1)
[2019-07-22] MEDS: DOCUSATE SODIUM/SENNA 50/8.6MG TAB PO SCH (08:32)
[2019-07-22] MEDS: ENOXAPARIN INJ 30 MG/0.3 ML SYR SQ SCH (08:32)
--- NOTE | 2019-07-22 09:59 | Electrocardiogram Report ---
Test Reason : Blood Pressure : / mmHG Vent. Rate : 066 BPM Atrial Rate : 066 BPM P-R Int : 176 ms QRS Dur : 106 ms QT Int : 410 ms P-R-T Axes : 079 003 111 degrees QTc Int : 429 ms Normal sinus rhythm Incomplete left bundle block Abnormal ECG When compared with ECG of 03-MAR-2019 11:26, Inverted T waves have replaced nonspecific T wave abnormality in Anterior leads T wave inversion less evident in Lateral leads Confirmed by Sid Weaver ([id number]) on 07/22/2019 9:59:14 AM Referred By: REFERRED SELF Confirmed By:Sid Weaver
--- NOTE | 2019-07-22 11:19 | Surgery Consultation ---
Date of Consultation July 22, 2019 Assessment & Plan (1) Partial bowel obstruction: Partial small bowel obstruction secondary to metastatic tumor in her abdomen. This tumor is smaller in size compared to previous. She has resolved this with conservative management in the past. Would recommend trial of nonoperative management with bowel rest, IVF resuscitation. OK to have some apple juice as this has treated her constipation in the past with good effect. Will follow. 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 thought the frosting might be spoiled. When pain persisted, came to ER. Pain is throughout abdomen, radiates to back, moderate severity, associated with mild nausea, no vomiting. No bowel movement since Tuesday. Has had similar episode previously for which she was transferred to [place], resolved conservatively after being able to drink apple juice which helps her intermittent constipation. Currently, she is passing lots of flatus, no bowel movement yet, is hungry, pain is improved cate ewhat. Allergies Allergy/AdvReac Type Severity Reaction Status Date / Time nut - unspecified Allergy Severe throat Verified 07/21/19 21:17 swelling aspirin Allergy Intermediate "ASTHMA" Verified 07/21/19 21:17 celecoxib Allergy Intermediate "ASTHMA Verified 07/21/19 21:17 ATTACK" codeine Allergy Intermediate "FACE Verified 07/21/19 21:17 PUFFS UP" morphine Allergy Intermediate "FACE Verified 07/21/19 21:17 PUFFS UP" latex Allergy Mild RASH Verified 07/21/19 21:17 caffeine AdvReac Intermediate HEADACHE Verified 07/21/19 21:17 midazolam AdvReac Intermediate extreme Verified 07/21/19 21:17 anxiety fentanyl AdvReac Mild DELIRIUM Verified 07/21/19 21:17 lorazepam AdvReac Mild ANXIOUS Verified 07/21/19 21:17 Home Medications Home Medications Medication Instructions Recorded Confirmed Type cholecalciferol (vitamin D3) 2,000 units PO QAM 04/09/18 07/21/19 History [Vitamin D3] albuterol sulfate 2 puffs INH Q6H PRN #1 ea 08/15/18 07/21/19 Rx acetaminophen 325 mg tablet 325 mg PO Q6H PRN 12/13/18 07/21/19 History lanreotide 120 mg/0.5 mL 0 mg SQ MONTHLY ml 12/13/18 07/21/19 History subcutaneous syringe Patient History Medical History Anal fistula (Chronic) Asthma (Chronic) NO INHALER Atrial fibrillation (Chronic) On Xarelto 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 [facility], Dr. Escalera. Receiving Sandostatin injection monthly. Chronic anticoagulation (Chronic) Coronary vasospasm (Chronic) Hemorrhoids (Chronic) Hyperlipidemia (Chronic) BORDERLINE Hypertension (Chronic) Interstitial cystitis (Chronic) Liver cancer (Chronic) Osteoarthritis (Chronic) Perirectal abscess (Chronic) Proctocolitis UTI (urinary tract infection) Surgical History History of cardiac cath (Chronic) [facility] 2016; "Normal coronary arteries." History of dilatation and curettage (Chronic) History of hysterectomy (Chronic) History of liver biopsy (Chronic) History of tonsillectomy and adenoidectomy (Chronic) History of tooth extraction (Chronic) S/P appendectomy (Chronic) S/P cholecystectomy (Chronic) Family History Sister Family history of diabetes mellitus Social History Preferred Language: Northern Irish Communication Ability: Effective 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 Beliefs That Will Affect Care: None marital status: Current Living Situation: Spouse and Family Other Information That Helps Us Care for You: No Feels Safe at Home: Yes Safety Concerns: Feels Safe At This Time Smoking Status: Never smoker Second Hand Exposure: No ; Hx Alcohol Use: No Hx Substance Use: No Review of Systems Review of Systems: All systems reviewed & are unremarkable except as noted in HPI & below Physical Exam Constitutional: WD/WN, vitals as above Eyes: + anicteric sclerae and PERRL ENMT: Ears: no hearing impairment and no external ear abnormality Respiratory: normal respiratory effort, lungs clear to auscultation Cardiovascular: RRR, no murmur, no edema Gastrointestinal (Abdomen): Inspection/Auscultation: normal bowel sounds Percussion/Palpation: + abdomen tender (mild, mid right abdomen) and abdomen soft; no guarding and no hernia well healed lower midline incision from hysterectomy Musculoskeletal: Head/Neck/Chest: normocephalic Extremities: no cyanosis Skin: no rashes, warm and dry Neurologic: moves all extremities; no focal motor deficits Psychiatric: A+Ox3, euthymic affect Results & Data Vital Signs (Past 12 Hours) Vital Signs Temp Pulse Resp BP BP Pulse Ox 07/22/19 07:09 36.6 C 54 L 18 112/67 97 07/22/19 01:50 36.8 C 56 L 16 147/83 H 99 07/22/19 01:30 62 20 105/66 97 07/21/19 23:49 66 20 130/65 97 Laboratory Results 07/22/19 07/22/19 07/22/19 Range/Units 06:34 05:05 05:05 WBC 2.83 L (4.8-10.8) K/uL RBC 3.34 L (4.2-5.4) M/uL Hgb 10.6 L (12.0-16.0) g/dL Hct 31.3 L (37-47) % MCV 93.7 (80-100) fL MCH 31.7 (25-34) pg MCHC 33.9 (32-36) g/dL RDW Std Deviation 49.8 H (36.4-46.3) fL RDW Coeff of Myra 14.6 H (11.5-14.5) % Plt Count 234 (130-400) K/uL MPV 10.3 (7.4-10.4) fL Immature Gran % (Auto) 0.4 % Neut % (Auto) 47.0 % Lymph % (Auto) 29.3 % [place] % (Auto) 18.0 % Eos % (Auto) 4.2 % Baso % (Auto) 1.1 % Immature Gran # (Auto) 0.01 (0.00-0.02) K/uL Neut # (Auto) 1.33 L (1.4-6.5) K/uL Lymph # (Auto) 0.83 L (1.2-3.4) K/uL [place] # (Auto) 0.51 (0.11-0.59) K/uL Eos # (Auto) 0.12 (0-0.5) K/uL Baso # (Auto) 0.03 (0-0.2) K/uL Sodium 140 (136-145) mmol/L Potassium 3.7 (3.5-5.1) mmol/L Chloride 106 (98-107) mmol/L Carbon Dioxide 25 (21-32) mmol/L Anion Gap 9.0 (3-11) BUN 13 (7-18) mg/dl Creatinine 0.83 (0.6-1.2) mg/dl Est Cr Clr Drug Dosing 52.2 ml/min Est GFR ( Amer) 80.5 Est GFR (Non-Af Amer) 69.5 BUN/Creatinine Ratio 16.2 (10-20) Glucose 112 H (70-99) mg/dl POC Glucose 112 H (70-99) mg/dl Calcium 8.1 L (8.5-10.1) mg/dl Magnesium (1.8-2.4) mg/dl Total Bilirubin (0.2-1) mg/dl AST (15-37) U/L ALT (12-78) U/L Alkaline Phosphatase (45-117) U/L Troponin I (0-0.045) ng/ml Total Protein (6.4-8.2) gm/dl Albumin (3.4-5.0) gm/dl Globulin (2.5-4.0) gm/dl Albumin/Globulin Ratio (0.9-2) Lipase (73-393) U/L Urine Color Urine Appearance (Clear) Urine pH (4.5-7.5) Ur Specific [place] (1.000-1.030) Urine Protein (Negative) Urine Glucose (UA) (Negative) Urine Ketones (Negative) Urine Blood (Negative) Urine Nitrite (Negative) Urine Bilirubin (Negative) Urine Urobilinogen (Negative) Ur Leukocyte Esterase (Negative) Urine WBC (Auto) (0-5) /hpf Urine RBC (Auto) (0-4) /hpf U Hyaline Cast (Auto) (0-5) /lpf U Epithel Cells (Auto) (0-5) /lpf Urine Bacteria (Auto) (Negative) 07/22/19 07/21/19 07/21/19 Range/Units 02:20 23:18 21:30 WBC (4.8-10.8) K/uL RBC (4.2-5.4) M/uL Hgb (12.0-16.0) g/dL Hct (37-47) % MCV (80-100) fL MCH (25-34) pg MCHC (32-36) g/dL RDW Std Deviation (36.4-46.3) fL RDW Coeff of Myra (11.5-14.5) % Plt Count (130-400) K/uL MPV (7.4-10.4) fL Immature Gran % (Auto) % Neut % (Auto) % Lymph % (Auto) % [place] % (Auto) % Eos % (Auto) % Baso % (Auto) % Immature Gran # (Auto) (0.00-0.02) K/uL Neut # (Auto) (1.4-6.5) K/uL Lymph # (Auto) (1.2-3.4) K/uL [place] # (Auto) (0.11-0.59) K/uL Eos # (Auto) (0-0.5) K/uL Baso # (Auto) (0-0.2) K/uL Sodium 137 (136-145) mmol/L Potassium 3.3 L (3.5-5.1) mmol/L Chloride 103 (98-107) mmol/L Carbon Dioxide 27 (21-32) mmol/L Anion Gap 8.0 (3-11) BUN 15 (7-18) mg/dl Creatinine 0.92 (0.6-1.2) mg/dl Est Cr Clr Drug Dosing 46.5 ml/min Est GFR ( Amer) 71.1 Est GFR (Non-Af Amer) 61.3 BUN/Creatinine Ratio 16.6 (10-20) Glucose 127 H (70-99) mg/dl POC Glucose 122 H (70-99) mg/dl Calcium 8.7 (8.5-10.1) mg/dl Magnesium 2.0 (1.8-2.4) mg/dl Total Bilirubin 0.7 (0.2-1) mg/dl AST 20 (15-37) U/L ALT 17 (12-78) U/L Alkaline Phosphatase 162 H (45-117) U/L Troponin I < 0.015 (0-0.045) ng/ml Total Protein 7.0 (6.4-8.2) gm/dl Albumin 3.0 L (3.4-5.0) gm/dl Globulin 4.0 (2.5-4.0) gm/dl Albumin/Globulin Ratio 0.7 L (0.9-2) Lipase 37 L (73-393) U/L Urine Color Yellow Urine Appearance Clear (Clear) Urine pH 5.0 (4.5-7.5) Ur Specific [place] 1.028 (1.000-1.030) Urine Protein Negative (Negative) Urine Glucose (UA) Negative (Negative) Urine Ketones Negative (Negative) Urine Blood Negative (Negative) Urine Nitrite Negative (Negative) Urine Bilirubin Negative (Negative) Urine Urobilinogen Negative (Negative) Ur Leukocyte Esterase 2+ H (Negative) Urine WBC (Auto) 1-5 (0-5) /hpf Urine RBC (Auto) 0-4 (0-4) /hpf U Hyaline Cast (Auto) 1-5 (0-5) /lpf U Epithel Cells (Auto) 20-30 H (0-5) /lpf Urine Bacteria (Auto) Negative (Negative) 07/21/19 Range/Units 21:30 WBC 3.46 L (4.8-10.8) K/uL RBC 3.72 L (4.2-5.4) M/uL Hgb 11.7 L (12.0-16.0) g/dL Hct 35.0 L (37-47) % MCV 94.1 (80-100) fL MCH 31.5 (25-34) pg MCHC 33.4 (32-36) g/dL RDW Std Deviation 49.8 H (36.4-46.3) fL RDW Coeff of Myra 14.6 H (11.5-14.5) % Plt Count 269 (130-400) K/uL MPV 10.4 (7.4-10.4) fL Immature Gran % (Auto) 0.3 % Neut % (Auto) 50.5 % Lymph % (Auto) 27.5 % [place] % (Auto) 18.5 % Eos % (Auto) 2.6 % Baso % (Auto) 0.6 % Immature Gran # (Auto) 0.01 (0.00-0.02) K/uL Neut # (Auto) 1.75 (1.4-6.5) K/uL Lymph # (Auto) 0.95 L (1.2-3.4) K/uL [place] # (Auto) 0.64 H (0.11-0.59) K/uL Eos # (Auto) 0.09 (0-0.5) K/uL Baso # (Auto) 0.02 (0-0.2) K/uL Sodium (136-145) mmol/L Potassium (3.5-5.1) mmol/L Chloride (98-107) mmol/L Carbon Dioxide (21-32) mmol/L Anion Gap (3-11) BUN (7-18) mg/dl Creatinine (0.6-1.2) mg/dl Est Cr Clr Drug Dosing ml/min Est GFR ( Amer) Est GFR (Non-Af Amer) BUN/Creatinine Ratio (10-20) Glucose (70-99) mg/dl POC Glucose (70-99) mg/dl Calcium (8.5-10.1) mg/dl Magnesium (1.8-2.4) mg/dl Total Bilirubin (0.2-1) mg/dl AST (15-37) U/L ALT (12-78) U/L Alkaline Phosphatase (45-117) U/L Troponin I (0-0.045) ng/ml Total Protein (6.4-8.2) gm/dl Albumin (3.4-5.0) gm/dl Globulin (2.5-4.0) gm/dl Albumin/Globulin Ratio (0.9-2) Lipase (73-393) U/L Urine Color Urine Appearance (Clear) Urine pH (4.5-7.5) Ur Specific [place] (1.000-1.030) Urine Protein (Negative) Urine Glucose (UA) (Negative) Urine Ketones (Negative) Urine Blood (Negative) Urine Nitrite (Negative) Urine Bilirubin (Negative) Urine Urobilinogen (Negative) Ur Leukocyte Esterase (Negative) Urine WBC (Auto) (0-5) /hpf Urine RBC (Auto) (0-4) /hpf U Hyaline Cast (Auto) (0-5) /lpf U Epithel Cells (Auto) (0-5) /lpf Urine Bacteria (Auto) (Negative) Diagnostic Findings Ct scan abd/ pelvisFINDINGS: Bibasilar linear densities likely represent subsegmental atelectasis. No pneumoperitoneum. No pneumatosis. 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 No suspicious lytic or blastic osseous lesions. Gallbladder is surgically absent. Moderate intrahepatic bile duct dilatation, unchanged. Decrease in size in the necrotic hepatic masses. For comparative purposes the dominant mass within the right hepatic lobe currently measures 8 cm, previously measuring 11 cm. The spleen, pancreas, adrenal glands, and kidneys are unremarkable. No hydronephrosis. No retroperitoneal lymphadenopathy. Normal bladder. The uterus is surgically absent. Moderate well- formed stool within the colon. Multiple thickened loops of small bowel within the left lower quadrant and deep pelvis. This favors the jejunum. There is also a distended jejunal loop within the left midabdomen measuring up to 4.3 cm. D istal to this loop there is a soft tissue mass within the mesentery that measures approximately 3.3 x 2.5 cm. This is concerning for a carcinoid tumor or metastatic disease. This appears to represent the transition point for the partial small bowel obstruction. The jejunal loops distal to this mass are also mildly thickened. This mesenteric mass also encases and narrows multiple mesenteric vessels. Therefore, the bowel wall thickening could be due vascular engorgement or a nonspecific enteritis. IMPRESSION: 1. Decrease in size in the metastatic lesions within the liver. 2. There is a 3.3 x 2.5 cm irregular soft tissue mass within the left side of the mesentery. This results in the transition point for a partial small bowel obstruction. This also encases the mesenteric vessels. This may represent a carcinoid tumor or metastatic disease. 3. Multiple thickened loops of small bowel within the left side of the abdomen and pelvis. This could be due to vascular engorgement secondary to the mesenteric mass or a nonspecific enteritis. 4. No change in the moderate bile duct dilatation.
--- NOTE | 2019-07-22 19:09 | Hospitalist Progress Note ---
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 Escalera [facility].) --Abdominal pain resolved, still with no BMs yet General surgery consulted, continue conservative management this time, including bowel rest and IV fluids We will try apple juice as well Continue to monitor closely Complicated UTI, no sepsis --Urine culture pending --Given ceftriaxone hx PAF, patient NSR currently not on anticoagulation secondary to fall risk Hypokalemia --Resolved Hyperglycemia,new diagnosis of DM 2, hemoglobin A1c of 6.03 June 2018 --BSG's within normal limits chronic anemia, hemoglobin at baseline DVT prophylaxis per Lovenox subcu Full code Disposition Pending PT OT evaluation Dissipate discharge home medically stable Admission and Anticipated Discharge Date Admission Date: July 22, 2019 Subjective Follow-up for partial small bowel obstruction Seen sitting up in bedside chair, comfortable, not in distress States she feels improved compared to yesterday Abdominal pain has resolved, no nausea No flatus, no bowel movements No chest pain, shortness of palpitations, dizziness No other symptoms Review of Systems Review of Systems: All systems reviewed & are unremarkable except as noted in HPI & below Physical Exam Physical Exam: General- oriented x 3, not in distress, speaks in sentences with no effort or accessory muscle use Eyes- anicteric Neck- no JVD Lungs- clear breath sounds bilaterally, no rales/wheezes Heart- normal rate, regular rhythm; no murmurs Abdomen-hypoactive bowel sounds, nondistended, soft, nontender Extremities- no pretibial edema, no calf tenderness Neuro- alert, oriented x 3; no gross focal neurologic deficits Skin- warm & dry Results & Data Results & Data ([facility]) Vital Signs (Past 12 Hours) Vital Signs Temp Pulse Resp BP Pulse Ox 07/22/19 15:08 36.6 C 60 17 120/68 98 07/22/19 07:09 36.6 C 54 L 18 112/67 97
[2019-07-23] MEDS: INSULIN ASPART 100 UNITS/ML 3 ML PEN SC SCH ×5 (00:57→21:28)
[2019-07-23] MEDS: cefTRIAXone SODIUM 1,000 MG in DEXTROSE 5% 50 ML IV SCH (02:29)
[2019-07-23] MEDS: DOCUSATE SODIUM/SENNA 50/8.6MG TAB PO SCH ×2 (08:47→22:34)
[2019-07-23] MEDS: ENOXAPARIN INJ 30 MG/0.3 ML SYR SQ SCH (08:48)
[2019-07-23] MEDS: POTASSIUM CHLORIDE 40 MEQ in SODIUM CHLORIDE 0.9% 1000ML 1,000 ML IV SCH (12:37)
--- NOTE | 2019-07-23 12:58 | Surgery Progress Note ---
Date of Service doing better, ;less abdominal pain, no nausea, no vomiting, no fever, pass gas. no BM yet July 23, 2019 Assessment & Plan (1) Partial bowel obstruction: Partial small bowel obstruction secondary to metastatic tumor in her abdomen. This tumor is smaller in size compared to previous. She has resolved this with conservative management in the past. Would recommend trial of nonoperative management with bowel rest, IVF resuscitation. OK to have some apple juice as this has treated her constipation in the past with good effect. Will follow. (2) Metastatic carcinoid tumor: appears to be responding to treatment with decrease size of liver lesions and intra-abd mass Results & Data Vital Signs (Past 12 Hours) Vital Signs Temp Pulse Resp BP Pulse Ox 07/23/19 06:53 36.5 C 58 L 16 129/73 99
--- NOTE | 2019-07-23 13:00 | Surgery Progress Note ---
Date of Service July 23, 2019 Assessment & Plan (1) Partial bowel obstruction: Partial small bowel obstruction secondary to metastatic tumor in her abdomen. This tumor is smaller in size compared to previous. She has resolved this with conservative management in the past. Would recommend trial of nonoperative management with bowel rest, IVF resuscitation. OK to have some apple juice as this has treated her constipation in the past with good effect. Will follow. 07/23/2019 1:01PM doing better full liquid diet will F/U (2) Metastatic carcinoid tumor: appears to be responding to treatment with decrease size of liver lesions and intra-abd mass Results & Data Vital Signs (Past 12 Hours) Vital Signs Temp Pulse Resp BP Pulse Ox 07/23/19 06:53 36.5 C 58 L 16 129/73 99
[2019-07-23] MEDS ORDERED: Nursing to Pharmacy Communication ONE (13:33)
--- NOTE | 2019-07-23 19:02 | Hospitalist Progress Note ---
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 Escalera of [facility] --Abdominal pain continues to improve, positive flatus General surgery consulted, continue conservative management this time, --Continue advance diet slowly Monitor closely Complicated UTI, no sepsis --Urine culture negative --Urinary symptoms --Discontinue ceftriaxone hx PAF, patient NSR currently not on anticoagulation secondary to fall risk Hypokalemia --Resolved Hyperglycemia,new diagnosis of DM 2, hemoglobin A1c of 6.03 June 2018 --BSG's within normal limits chronic anemia, hemoglobin at baseline DVT prophylaxis per Lovenox subcu Full code Disposition Pending PT OT evaluation Anticipate discharge home medically stable Admission and Anticipated Discharge Date Admission Date: July 22, 2019 Subjective Follow-up for partial small bowel obstruction Seen resting in bedside chair, comfortable, not in distress States she feels improved today Very minimal abdominal discomfort Tolerated diet well with minimal discomfort No nausea or vomiting Denies other symptoms Review of Systems Review of Systems: All systems reviewed & are unremarkable except as noted in HPI & below Physical Exam Physical Exam: General- oriented x 3, not in distress, speaks in sentences with no effort or accessory muscle use Eyes- anicteric Neck- no JVD Lungs- clear breath sounds bilaterally, no crackles or wheezing Heart- normal rate, regular rhythm; no murmurs Abdomen- normal bowel sounds, nondistended, soft, nontender Mild lower quadrant tenderness Extremities- no pretibial edema, no calf tenderness Neuro- alert, oriented x 3; no gross focal neurologic deficits Skin- warm & dry Results & Data Results & Data ([facility]) Vital Signs (Past 12 Hours) Vital Signs Temp Pulse Resp BP Pulse Ox 07/23/19 15:10 37 C 61 16 109/66 100
[2019-07-23] MEDS: CETIRIZINE HCL 10 MG TABLET PO SCH (19:24)
[2019-07-23] MEDS ORDERED: bisacodyL 10 MG SUPP PR STA (22:18)
[2019-07-23] MEDS ORDERED: LACTULOSE SYRUP 30 GM/45 ML UDP PO STA (22:22)
[2019-07-24] MEDS ORDERED: LACTULOSE SYRUP 30 GM/45 ML UDP PO STA (04:17)
[2019-07-24] MEDS ORDERED: bisacodyL 10 MG SUPP PR PRN (04:48)
[2019-07-24] MEDS: POTASSIUM CHLORIDE 40 MEQ in SODIUM CHLORIDE 0.9% 1000ML 1,000 ML IV SCH (05:39)
[2019-07-24 06:38] LABS: Estimated Average Glucose 128 mg/dl; Hemoglobin A1C 6.1 % (4.5-5.6)
[2019-07-24] MEDS: DOCUSATE SODIUM/SENNA 50/8.6MG TAB PO SCH (08:55)
[2019-07-24] MEDS: ENOXAPARIN INJ 30 MG/0.3 ML SYR SQ SCH (08:56)
[2019-07-24] MEDS: INSULIN ASPART 100 UNITS/ML 3 ML PEN SC SCH ×2 (09:41→13:11)
[2019-07-24 09:51] LABS: Basophils # (auto) 0.03 K/uL (0-0.2); Basophils % (auto) 0.8 %; Eosinophils # (auto) 0.11 K/uL (0-0.5); Eosinophils % (auto) 2.9 %; Hematocrit (blood only) 36.7 % (37-47); Immature Granulocytes # (auto) 0.01 K/uL (0.00-0.02); Immature Granulocytes % (auto) 0.3 %; Lymphocytes # (auto) 0.76 K/uL (1.2-3.4); Lymphocytes % (auto) 20.4 %; Mean Corpuscular Hemoglobin 31.7 pg (25-34); Mean Corpuscular Hgb Conc 32.7 g/dL (32-36); Mean Corpuscular Volume 96.8 fL (80-100); Mean Platelet Volume 10.1 fL (7.4-10.4); Monocytes % (auto) 10.7 %; Neutrophils # (auto) 2.42 K/uL (1.4-6.5); Neutrophils % (auto) 64.9 %; Platelet Count 278 K/uL (130-400); RDW Coefficient of Variation 14.8 % (11.5-14.5); RDW Standard Deviation 51.8 fL (36.4-46.3); Red Blood Count 3.79 M/uL (4.2-5.4); White Blood Count 3.73 K/uL (4.8-10.8)
[2019-07-24 10:26] LABS: BUN Creatinine Ratio 4.9 (10-20); Creatinine Clr Calc Pharmacy 49.2 ml/min; Est GFR (Non-African American) 64.7
--- NOTE | 2019-07-24 13:51 | Hospitalist Progress Note ---
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 Escalera of [facility] --- Abdominal pain improving, tolerating diet well, advance diet tomorrow if tolerated General surgery consulted, continue conservative management this time, Complicated UTI, no sepsis --Urine culture negative --Urinary symptoms --Discontinue ceftriaxone hx PAF, patient NSR currently not on anticoagulation secondary to fall risk No cardiac symptoms Hypokalemia --Resolved Hyperglycemia,new diagnosis of DM 2, hemoglobin A1c of 6.03 June 2018 --BSG's within normal limits chronic anemia, hemoglobin at baseline DVT prophylaxis per Lovenox subcu Full code Disposition Pending PT OT evaluation Anticipate discharge home medically stable Admission and Anticipated Discharge Date Admission Date: July 22, 2019 Subjective Follow-up for partial small bowel obstruction Seen resting in bed side chair, comfortable, not in distress States abdominal pain continues to improve Tolerating current diet well no BMs yet, positive flatus No other symptoms Review of Systems Review of Systems: All systems reviewed & are unremarkable except as noted in HPI & below Physical Exam Physical Exam: General- oriented x 3, not in distress, speaks in sentences with no effort or accessory muscle use Eyes- anicteric Neck- no JVD Lungs- clear BS bilaterally Heart- normal rate, regular rhythm; no murmurs Abdomen- normal bowel sounds, nondistended, soft, nontender Extremities- no pretibial edema, no calf tenderness Neuro- alert, oriented x 3; no gross focal neurologic deficits Skin- warm & dry Results & Data Results & Data ([facility]) Vital Signs (Past 12 Hours) Vital Signs Temp Pulse Resp BP Pulse Ox 07/24/19 06:58 36.9 C 60 16 134/75 98 Laboratory Results Laboratory Results - last 24 hr 07/23/19 07/23/19 07/23/19 04:35 17:09 17:11 WBC RBC Hgb Hct MCV MCH MCHC RDW Std Deviation RDW Coeff of Myra Plt Count MPV Immature Gran % (Auto) Neut % (Auto) Lymph % (Auto) [place] % (Auto) Eos % (Auto) Baso % (Auto) Immature Gran # (Auto) Neut # (Auto) Lymph # (Auto) [place] # (Auto) Eos # (Auto) Baso # (Auto) Sodium Potassium Chloride Carbon Dioxide Anion Gap BUN Creatinine Est Cr Clr Drug Dosing Est GFR ( Amer) Est GFR (Non-Af Amer) BUN/Creatinine Ratio Glucose POC Glucose 58 L* 58 L* Estimat Average Glucose 128 Hemoglobin A1c 6.1 H Calcium 07/23/19 07/23/19 07/24/19 17:25 20:54 08:13 WBC RBC Hgb Hct MCV MCH MCHC RDW Std Deviation RDW Coeff of Myra Plt Count MPV Immature Gran % (Auto) Neut % (Auto) Lymph % (Auto) [place] % (Auto) Eos % (Auto) Baso % (Auto) Immature Gran # (Auto) Neut # (Auto) Lymph # (Auto) [place] # (Auto) Eos # (Auto) Baso # (Auto) Sodium Potassium Chloride Carbon Dioxide Anion Gap BUN Creatinine Est Cr Clr Drug Dosing Est GFR ( Amer) Est GFR (Non-Af Amer) BUN/Creatinine Ratio Glucose POC Glucose 71 95 133 H Estimat Average Glucose Hemoglobin A1c Calcium 07/24/19 07/24/19 07/24/19 09:39 09:39 12:15 WBC 3.73 L RBC 3.79 L Hgb 12.0 Hct 36.7 L MCV 96.8 MCH 31.7 MCHC 32.7 RDW Std Deviation 51.8 H RDW Coeff of Myra 14.8 H Plt Count 278 MPV 10.1 Immature Gran % (Auto) 0.3 Neut % (Auto) 64.9 Lymph % (Auto) 20.4 [place] % (Auto) 10.7 Eos % (Auto) 2.9 Baso % (Auto) 0.8 Immature Gran # (Auto) 0.01 Neut # (Auto) 2.42 Lymph # (Auto) 0.76 L [place] # (Auto) 0.40 Eos # (Auto) 0.11 Baso # (Auto) 0.03 Sodium 141 Potassium 4.0 Chloride 109 H Carbon Dioxide 25 Anion Gap 7.0 BUN 4 L Creatinine 0.88 Est Cr Clr Drug Dosing 49.2 Est GFR ( Amer) 75.0 Est GFR (Non-Af Amer) 64.7 BUN/Creatinine Ratio 4.9 L Glucose 152 H POC Glucose 107 H Estimat Average Glucose Hemoglobin A1c Calcium 9.0
--- NOTE | 2019-07-24 14:52 | Surgery Progress Note ---
Date of Service July 24, 2019 Assessment & Plan (1) Partial bowel obstruction: Partial small bowel obstruction secondary to metastatic tumor in her abdomen. This tumor is smaller in size compared to previous. She has resolved this with conservative management in the past. -resolving - + bowel function - no nausea or vomiting Plan: Advance to low fiber DM diet okay from surgical standpoint for discharge if tolerates low fiber diet continue medical management f/u with oncology once discharged (2) Metastatic carcinoid tumor: appears to be responding to treatment with decrease size of liver lesions and intra-abd mass Dr. Mejía was present during my examination, agrees with above Subjective feeling better today no abdominal pain unless trying to have a bowel movement soft formed bowel movement this morning, no blood tolerating full liquids no nausea or vomiting passing gas Physical Exam Constitutional: WD/WN, vitals as above no acute distress Gastrointestinal (Abdomen): Inspection/Auscultation: abdomen normal to inspection; abdomen not distended Percussion/Palpation: + abdomen tender (epigastrium on deep palpation), + abdomen rigid and abdomen soft; no guarding Skin: no rashes, warm and dry Psychiatric: Orientation: alert and oriented x 3 Results & Data Vital Signs (Past 12 Hours) Vital Signs Temp Pulse Resp BP Pulse Ox 07/24/19 06:58 36.9 C 60 16 134/75 98 Laboratory Results 07/24/19 07/24/19 07/24/19 Range/Units 12:15 09:39 09:39 WBC 3.73 L (4.8-10.8) K/uL RBC 3.79 L (4.2-5.4) M/uL Hgb 12.0 (12.0-16.0) g/dL Hct 36.7 L (37-47) % MCV 96.8 (80-100) fL MCH 31.7 (25-34) pg MCHC 32.7 (32-36) g/dL RDW Std Deviation 51.8 H (36.4-46.3) fL RDW Coeff of Myra 14.8 H (11.5-14.5) % Plt Count 278 (130-400) K/uL MPV 10.1 (7.4-10.4) fL Immature Gran % (Auto) 0.3 % Neut % (Auto) 64.9 % Lymph % (Auto) 20.4 % [place] % (Auto) 10.7 % Eos % (Auto) 2.9 % Baso % (Auto) 0.8 % Immature Gran # (Auto) 0.01 (0.00-0.02) K/uL Neut # (Auto) 2.42 (1.4-6.5) K/uL Lymph # (Auto) 0.76 L (1.2-3.4) K/uL [place] # (Auto) 0.40 (0.11-0.59) K/uL Eos # (Auto) 0.11 (0-0.5) K/uL Baso # (Auto) 0.03 (0-0.2) K/uL Sodium 141 (136-145) mmol/L Potassium 4.0 (3.5-5.1) mmol/L Chloride 109 H (98-107) mmol/L Carbon Dioxide 25 (21-32) mmol/L Anion Gap 7.0 (3-11) BUN 4 L (7-18) mg/dl Creatinine 0.88 (0.6-1.2) mg/dl Est Cr Clr Drug Dosing 49.2 ml/min Est GFR ( Amer) 75.0 Est GFR (Non-Af Amer) 64.7 BUN/Creatinine Ratio 4.9 L (10-20) Glucose 152 H (70-99) mg/dl POC Glucose 107 H (70-99) mg/dl Estimat Average Glucose mg/dl Hemoglobin A1c (4.5-5.6) % Calcium 9.0 (8.5-10.1) mg/dl 07/24/19 07/23/19 07/23/19 Range/Units 08:13 20:54 17:25 WBC (4.8-10.8) K/uL RBC (4.2-5.4) M/uL Hgb (12.0-16.0) g/dL Hct (37-47) % MCV (80-100) fL MCH (25-34) pg MCHC (32-36) g/dL RDW Std Deviation (36.4-46.3) fL RDW Coeff of Myra (11.5-14.5) % Plt Count (130-400) K/uL MPV (7.4-10.4) fL Immature Gran % (Auto) % Neut % (Auto) % Lymph % (Auto) % [place] % (Auto) % Eos % (Auto) % Baso % (Auto) % Immature Gran # (Auto) (0.00-0.02) K/uL Neut # (Auto) (1.4-6.5) K/uL Lymph # (Auto) (1.2-3.4) K/uL [place] # (Auto) (0.11-0.59) K/uL Eos # (Auto) (0-0.5) K/uL Baso # (Auto) (0-0.2) K/uL Sodium (136-145) mmol/L Potassium (3.5-5.1) mmol/L Chloride (98-107) mmol/L Carbon Dioxide (21-32) mmol/L Anion Gap (3-11) BUN (7-18) mg/dl Creatinine (0.6-1.2) mg/dl Est Cr Clr Drug Dosing ml/min Est GFR ( Amer) Est GFR (Non-Af Amer) BUN/Creatinine Ratio (10-20) Glucose (70-99) mg/dl POC Glucose 133 H 95 71 (70-99) mg/dl Estimat Average Glucose mg/dl Hemoglobin A1c (4.5-5.6) % Calcium (8.5-10.1) mg/dl 07/23/19 07/23/19 07/23/19 Range/Units 17:11 17:09 04:35 WBC (4.8-10.8) K/uL RBC (4.2-5.4) M/uL Hgb (12.0-16.0) g/dL Hct (37-47) % MCV (80-100) fL MCH (25-34) pg MCHC (32-36) g/dL RDW Std Deviation (36.4-46.3) fL RDW Coeff of Myra (11.5-14.5) % Plt Count (130-400) K/uL MPV (7.4-10.4) fL Immature Gran % (Auto) % Neut % (Auto) % Lymph % (Auto) % [place] % (Auto) % Eos % (Auto) % Baso % (Auto) % Immature Gran # (Auto) (0.00-0.02) K/uL Neut # (Auto) (1.4-6.5) K/uL Lymph # (Auto) (1.2-3.4) K/uL [place] # (Auto) (0.11-0.59) K/uL Eos # (Auto) (0-0.5) K/uL Baso # (Auto) (0-0.2) K/uL Sodium (136-145) mmol/L Potassium (3.5-5.1) mmol/L Chloride (98-107) mmol/L Carbon Dioxide (21-32) mmol/L Anion Gap (3-11) BUN (7-18) mg/dl Creatinine (0.6-1.2) mg/dl Est Cr Clr Drug Dosing ml/min Est GFR ( Amer) Est GFR (Non-Af Amer) BUN/Creatinine Ratio (10-20) Glucose (70-99) mg/dl POC Glucose 58 L* 58 L* (70-99) mg/dl Estimat Average Glucose 128 mg/dl Hemoglobin A1c 6.1 H (4.5-5.6) % Calcium (8.5-10.1) mg/dl
--- NOTE | 2019-07-24 16:56 | Discharge Summary ---
Date of Service July 24, 2019 Admission HPI Per Admitting Provider History obtained from patient and records. 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 Xarelto for A. fib stopped on discharge. 4 days history of generalized achy, gassy abdominal pain with nausea and obstipation. No fever. Usual chills. No chest pain, no S OB. Urine kind of brown. Patient consulted ER. 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 Admission Exam Per Admitting Provider General- No acute distress Head- Left prefrontal hematoma/ecchymoses Eyes- large hematoma, ecchymoses and tenderness in the left orbital area ENT- oropharynx clear Neck- supple, no JVD Lungs- clear to auscultation Heart- regular rhythm; no murmur Abdomen- normal bowel sounds, soft, nontender Extremities- no calf tenderness, R knee tenderness Neuro- alert, oriented, PERRL, EOMI; no facial palsy; no dysarthria Skin- warm & dry Principal Diagnosis Partial small bowel obstruction Discharge Exam General- oriented x 3, not in distress, speaks in sentences with no effort or accessory muscle use Eyes- anicteric Neck- no JVD Lungs- clear BS bilaterally Heart- normal rate, regular rhythm; no murmurs Abdomen- normal bowel sounds, nondistended, soft, nontender Extremities- no pretibial edema, no calf tenderness Neuro- alert, oriented x 3; no gross focal neurologic deficits Skin- warm & dry Discharge Data Allergies Allergy/AdvReac Type Severity Reaction Status Date / Time nut - unspecified Allergy Severe throat Verified 07/21/19 21:17 swelling aspirin Allergy Intermediate "ASTHMA" Verified 07/21/19 21:17 celecoxib Allergy Intermediate "ASTHMA Verified 07/21/19 21:17 ATTACK" codeine Allergy Intermediate "FACE Verified 07/21/19 21:17 PUFFS UP" morphine Allergy Intermediate "FACE Verified 07/21/19 21:17 PUFFS UP" latex Allergy Mild RASH Verified 07/21/19 21:17 caffeine AdvReac Intermediate HEADACHE Verified 07/21/19 21:17 midazolam AdvReac Intermediate extreme Verified 07/21/19 21:17 anxiety fentanyl AdvReac Mild DELIRIUM Verified 07/21/19 21:17 lorazepam AdvReac Mild ANXIOUS Verified 07/21/19 21:17 Consultations 07/21/19 23:27 ED Decision to Admit Stat 07/22/19 01:52 Consult General Surgery Routine Ordered Studies 07/21/19 21:54 CT abd pelvis IV con only Stat COMPARISON STUDY: Abdomen and pelvis CT 10/21/2018. FINDINGS: Bibasilar linear densities likely represent subsegmental atelectasis. No pneumoperitoneum. No pneumatosis. 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 No suspicious lytic or blastic osseous lesions. Gallbladder is surgically absent. Moderate intrahepatic bile duct dilatation, unchanged. Decrease in size in the necrotic hepatic masses. For comparative purposes the dominant mass within the right hepatic lobe currently measures 8 cm, previously measuring 11 cm. The spleen, pancreas, adrenal glands, and kidneys are unremarkable. No hydronephrosis. No retroperitoneal lymphadenopathy. Normal bladder. The uterus is surgically absent. Moderate well-formed stool within the colon. Multiple thickened loops of small bowel within the left lower quadrant and deep pelvis. This favors the jejunum. There is also a distended jejunal loop within the left midabdomen measuring up to 4.3 cm. Distal to this loop there is a soft tissue mass within the mesentery that measures approximately 3.3 x 2.5 cm. This is concerning for a carcinoid tumor or metastatic disease. This appears to represent the transition point for the partial small bowel obstruction. The jejunal loops distal to this mass are also mildly thickened. This mesenteric mass also encases and narrows multiple mesenteric vessels. Therefore, the bowel wall thickening could be due vascular engorgement or a nonspecific enteritis. IMPRESSION: 1. Decrease in size in the metastatic lesions within the liver. 2. There is a 3.3 x 2.5 cm irregular soft tissue mass within the left side of the mesentery. This results in the transition point for a partial small bowel obstruction. This also encases the mesenteric vessels. This may represent a carcinoid tumor or metastatic disease. 3. Multiple thickened loops of small bowel within the left side of the abdomen and pelvis. This could be due to vascular engorgement secondary to the mesenteric mass or a nonspecific enteritis. 4. No change in the moderate bile duct dilatation. Hospital Course (1) Partial bowel obstruction: History of metastatic carcinoid tumor status post PRRT (peptide receptor radionuclide therapy) on monthly Sandostatin injections (Patient [facility] with [facility] -- CT abdomen and pelvis: 1. Decrease in size in the metastatic lesions within the liver. 2. There is a 3.3 x 2.5 cm irregular soft tissue mass within the left side of the mesentery. This results in the transition point for a partial small bowel obstruction. This also encases the mesenteric vessels. This may represent a carcinoid tumor or metastatic disease. 3. Multiple thickened loops of small bowel within the left side of the abdomen and pelvis. This could be due to vascular engorgement secondary to the mesenteric mass or a nonspecific enteritis. 4. No change in the moderate bile duct dilatation. -- General surgery consulted, conservative management recommended Patient placed on bowel rest, IV fluids --- Abdominal pain improved, tolerated advancement of diet Continue to follow-up with oncologist PCP follow-up next week Complicated UTI, no sepsis --Urine culture negative --Urinary symptoms --Discontinue ceftriaxone hx PAF, patient NSR currently not on anticoagulation secondary to fall risk No cardiac symptoms Hypokalemia --Resolved Hyperglycemia,new diagnosis of DM 2, hemoglobin A1c of 6.03 June 2018 --BSG's within normal limits chronic anemia, hemoglobin at baseline DVT prophylaxis : Lovenox subcu Full code Disposition DC home Follow-up with primary care physician next week Follow-up with oncologist as scheduled Total Time Total Time Spent Total Time Spent (In Minutes): 45 minutes Discharge Plan Discharge Items Patient Disposition: Home - Self-Care Reason For Visit: SBO Discharge Diagnosis: Partial small bowel obstruction, resolved Activity: Resume your previous activity Driving/Machine Use: No driving until reevaluated and allowed by primary care physician Non-emergency contact: Primary Care Provider Call non-emergency contact if: you have any medication questions, your symptoms worsen and you have a fever Follow-up/Referrals: Genia Cullen DO [Primary Care Provider] - 07/30/19 11:20 am (07/30/2019 11:20 AM Provider Genia Cullen DO [facility] ) Diet: Heart Healthy and Low Fiber Addtl Attending Provider Instructions: Please continue with low fiber diet. Avoid big meals. Stay well-hydrated, drink plenty of water. Foods that are generally allowed on a low-fiber diet include: White bread without nuts and seeds White rice, plain white pasta, and crackers Refined hot cereals, such as Cream of Wheat, or cold cereals with less than 1 gram of fiber per serving Pancakes or waffles made from white refined flour Most canned or well-cooked vegetables and fruits without skins or seeds Fruit and vegetable juice with little or no pulp, fruit-flavored drinks, and flavored [place] Tender meat, poultry, fish, eggs and tofu Milk and foods made from milk such as yogurt, pudding, ice cream, cheeses and sour cream if tolerated Butter, margarine, oils and salad dressings without seeds You should avoid: Whole-wheat or whole-grain breads, cereals and pasta Brown or wild rice and other whole grains, such as oats, kasha, barley and quinoa Dried fruits and prune juice Raw fruit, including those with seeds, skin or membranes, such as berries Raw or undercooked vegetables, including corn Dried beans, peas and lentils Seeds and nuts and foods containing them, including peanut butter and other nut butters Coconut Popcorn Call primary care physician or return to the ER immediately if with recurrence or worsening of symptoms. Follow-up with primary care physician as outlined above. Follow-up with your oncologist as scheduled. Pending Studies at Discharge: No Stand-Alone Forms: My [facility] [employer], Smoking Cessation Medications and DC Order Prescriptions: Continued Somatuline [place] 120 mg/0.5 mL syringe 0 mg SQ MONTHLY RF: 0 acetaminophen [Tylenol] 325 mg tablet 325 mg PO Q6H PRN (Reason: pain/fever) RF: 0 cholecalciferol (vitamin D3) [Vitamin D3] 2,000 unit Capsule 2,000 units PO QAM RF: 0 albuterol sulfate 90 mcg/actuation aerosol powdr breath activated 2 puffs INH Q6H PRN (Reason: shortness of breath or wheezing) Qty: 1 RF: 1 Discharge Orders: Discharge Order (Routine); Ordered 07/24/19 Ordered By: Roddy Mariscal/Other Patient Handouts: A1C Admission Data Admit Date/Time: 07/22/19 01:11 Attending Provider: Roddy Crowder Admit Provider: Brayden Yepez Primary Care Provider: Genia Cullen Other Providers: Sabina Montilla ; Brayden Yepez
[2019-07-24] MEDS: CETIRIZINE HCL 10 MG TABLET PO SCH (18:01)
--- NOTE | 2019-08-03 11:41 | Coding Query ---
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 Please assist us with the question(s) below: Coding Question(s): Complicated UTI is documented from H&P thru Discharge Summary, with documentation of the urine culture being negative, urinary symptoms and discontinue ceftriaxone. It is not clear if there was treatment for possible UTI or if the UTI was ruled-out. Please clarify below in your clinical opinion. ( ) Possible UTI was treated (X ) UTI was ruled-out ( ) Other: Please Specify Physician's Response(s): Thank you Bhavya Santiago Principal Diagnosis: "that condition established after study, to be chiefly responsible for occasioning the admission of the patient to the hospital for care." Co-Existing Principal Diagnosis: "when two or more diagnoses equally meet the criteria for principal diagnosis as determined by the circumstances of admission, diagnostic work up, and/or therapy provided, and the Alphabetic Index, Tabular List, or another coding guideline does not provide sequencing direction, any one of the diagnoses may be sequenced first." "When the physician has documented what appears to be a current diagnosis in the body of the record, but has not included the diagnosis in the final diagnostic statement, the physician should be asked whether the diagnosis should be added." (Source [facility]oding [facility] 2 QTR90. p3-4) CHAVZE
== END 2019-07-24 18:30 | disposition home or self-care (01) | DRG 844 ==
LOC: ED 20:34 → 3E 07-22 01:11

== ENCOUNTER 2019-08-26 02:40 | Inpatient (IN) ==
[2019-08-26] MEDS ORDERED: dilTIAZem HCl 5 MG/ML 5 ML VIAL IV STA ×2 (02:50→03:13)
--- NOTE | 2019-08-26 02:59 | Emergency Department Note ---
Impression & Plan Atrial fibrillation with rapid ventricular response, Elevated troponin ED Provider Note Name: TRACY CARDENAS Age: 74 Sex: F Arrives Via: Ambulance Informant: Patient, EMS ED Provider: Kaden Larose MD Chief Complaint: Palpitations Impression: Atrial Fibrillation with rapid ventricular response Elevated Troponin Medical Decision Makin yr old female with carcinoid tumor, PAF arrives via EMS after episode of palpitations with chest discomfort this morning. She received 150mg IV amiodarone and 500mL IV fluids by EMS for presumed Vtach which converted to Afib RVR. Patient on my evaluation afib RVR and no distress. EKG with lateral ST depressions and Afib RVR. She has history PAF though denies needing rate control in past. Was taken off anticoagulant 6 months ago due to fall risks. Review of leads from EMS is concerning for Vtach which fortunately converted with Amiodarone, though I suspect that the tachy-arrythmia could actual be reentrant/SVT or even an incredibly fast afib rvr as the incomplete LBBB morphology seems to similar to previous ekgs. Patient's initial CBC returned with pancytopenia thus I did quite rectal exam w hich revealed some remaining sutures that have been there for quite some time per patient but no blood in stool. Repeat testing revealed stable anemia without significant drop. Trop is elevated consistent with tachycardia she was having. She is allergic to ASA thus I held off on this. I will defer anticoagulation treatment to hospitalist team as she is coming in and given bleeding/fall history. She was given 2 rounds IV cardizem to get HR in to 80s-110s and then cardizem gtt was started. HR jumping around when moving though otherwise staying around 100s. No evidence of sepsis and without persistent chest pain nor significant shortness of breath I doubt primary issue is PE given known Afib history. Prior Medical Record and Triage/Nursing Notes reviewed by Me Additional history obtained from Differentials:Premature contractions, electrolyte abnormality, cardiac dysrhythmia, thyroid dysfunction, pulmonary embolism, infection, gastrointestinal, as well as other pathologies. Vital Signs: reviewed and remarkable for tachy Interventions: saline lock, cardizem 15mg IV x 2, cardizem gtt Labs:Reviewed and remarkable for + trop Imaging:X ray results are stated below per my interpretation: Chest: 1 view: No infiltrate, no effusion, normal cardiac border. EKG:Per My Interpretation: Indication Palpitations: Afib RVR 133 with deep lateral depressions qtc 491. Appears to have incomplete LBBB. When compared to 07/21/19 she is now in Afib RVR and lateral depressions are new. Cardiac/Tele Monitoring: Cardiac Monitoring: An Order was placed for continuous cardiac monitoring. The monitor shows a rate of 135 with a afib rhythm. Consults:Dr Gurjit Hoffman Hospitalist Plan: Disposition:Hospitalization. Condition: Fair Blood pressure:Normal.No Referral necessary Prescriptions:none PDMP: n/a History of Present Illness:74 / F with history of PAF, HTN, DLP, Metastatic carcinoid cancer arrives for evaluation of palpitations. Notes recent hospitalization last month for small bowel obstruction but doing well since. She states she was getting up from bed to use bathroom this evening when she developed chest discomfort. Associated palpitations, lightheaded. Denies heavy nor sharp pain, just light discomfort. No syncope, headache, neck pain, nausea, vomiting, leg swelling, rashes, fevers, shortness of breath, abdominal pain, back pain, nor other symptoms. No preceding symptoms. Nothing made better nor worse. Called 911. EMS arrived and found patient in tachy arrythmia 235bpm. She was given 500ml IV fluids and 150mg IV Amiodarone. This resulted in HR 130s-150s and Afib on monitor. Patient notes resolution of symptoms with this. Patient admits history of PAF on no anticoagulation as she has bleeding and head injury history. Patient currently on sandostatin injections for carcinoid cancer with liver mets. Patient note given ASA as she is allergic. ROS: See above HPI for pertinent positives & negatives. A total of 10 systems reviewed and were otherwise negative. Past Medical History:See Below Past Surgical History:See Below Family History:See Below Social History:See Below Home Medications:See Below Allergies:See Below Vitals:Blood Pressure: 130/91, Pulse 135, RR 18, T 37.1C, O2 95% on RA Physical Exam: GENERAL: Patient is well appearing and in minimal distress. EYES: No scleral icterus, unremarkable pupils. ENT: Mucous membranes moist, no nasal congestion. NECK: No masses appreciated, nomeningismus, trachea is midline. RESPIRATORY: No dyspnea. Clear to auscultation and equal bilaterally. No wheeze, no rhonchi. CARDIOVASCULAR: Tachy, irregular.No murmurs, rubs, gallops appreciated. GASTROINTESTINAL: Abdomen soft, non-tender, no peritonitis.Bowel sounds positive.No masses appreciated. BACK: No midline tenderness, no CVA tenderness RECTAL: 3 cm long string attached posterior anus consistent with old sutures firmly attached. No blood. Brown/heme-negative stool EXTREMITIES: Normal motion all extremities, no cyanosis, no edema. NEUROLOGIC: Alert and oriented, no acute motor or sensory deficits, no focal weakness, cranial nerves grossly intact. SKIN: No rash, no jaundice, no diaphoresis. PSYCH: Appropriate GCS: 15 ED Course: Times/Reassessments: Improving BP. Stable, no distress and agreeable to hospitalization Critical Care: I have personally spent 45 minutes of critical care time in the direct management of this patient. Afib RVR requiring IV cardizem and gtt to get under control. This was a life/limb threatening event. This 45 minutes is in excess of all separately billable procedures. Kaden Larose MD Past Med/Surg History Social History Preferred Language: Yoruba Communication Ability: Effective Eyelet Maker Required: No Beliefs That Will Affect Care: None marital status: Current Living Situation: Family Current Living Situation Comment: house Other Information That Helps Us Care for You: No Feels Safe at Home: Yes Safety Concerns: Feels Safe At This Time Smoking Status: Never smoker Second Hand Exposure: No ; Hx Alcohol Use: No Hx Substance Use: No Allergies Allergies Allergy/AdvReac Type Severity Reaction Status Date / Time nut - unspecified Allergy Severe throat Verified 08/26/19 03:07 swelling aspirin Allergy Intermediate "ASTHMA" Verified 08/26/19 03:07 celecoxib Allergy Intermediate "ASTHMA Verified 08/26/19 03:07 ATTACK" codeine Allergy Intermediate "FACE Verified 08/26/19 03:07 PUFFS UP" morphine Allergy Intermediate "FACE Verified 08/26/19 03:07 PUFFS UP" latex Allergy Mild RASH Verified 08/26/19 03:07 caffeine AdvReac Intermediate HEADACHE Verified 08/26/19 03:07 midazolam AdvReac Intermediate extreme Verified 08/26/19 03:07 anxiety fentanyl AdvReac Mild DELIRIUM Verified 08/26/19 03:07 lorazepam AdvReac Mild ANXIOUS Verified 08/26/19 03:07 Home Meds Home Medications Medication Instructions Recorded Confirmed cholecalciferol (vitamin D3) 2,000 units PO QAM 04/09/18 08/26/19 [Vitamin D3] acetaminophen 325 mg tablet 325 mg PO Q6H PRN 12/13/18 08/26/19 lanreotide 120 mg/0.5 mL 0 mg SQ MONTHLY ml 12/13/18 08/26/19 subcutaneous syringe Previous Rx's Medication Instructions Recorded albuterol sulfate 2 puffs INH Q6H PRN #1 ea 08/15/18 Results & Data (ED) Vital Signs Vital Signs - 24 hr 08/26/19 02:33 08/26/19 02:48 08/26/19 02:50 Temperature 37.1 C Temperature Source Oral Pulse Rate 135 H 137 H 138 H Pulse Rate [Apical] Pulse Rate from SpO2 Sensor Respiratory Rate 18 12 13 Respiratory Effort / Characteristics Non-Labored Respiratory Depth Normal Respiratory Pattern Regular Blood Pressure 130/91 130/91 Blood Pressure [Right Arm] Blood Pressure Mean 104 116 Blood Pressure Mean [Right Arm] Blood Pressure Position [Right Arm] Pulse Oximetry 95 Oxygen Delivery Method Room Air Sepsis Recent Fever Within 48 Hours No Sepsis New/Unexplained Change in Mental Status No Sepsis Action Taken by Nursing No Action Required 08/26/19 03:00 08/26/19 03:01 08/26/19 03:10 Temperature Temperature Source Pulse Rate 127 H 135 H 116 H Pulse Rate [Apical] Pulse Rate from SpO2 Sensor 122 H 133 H Respiratory Rate 15 23 18 Respiratory Effort / Characteristics Respiratory Depth Respiratory Pattern Blood Pressure 143/104 H Blood Pressure [Right Arm] Blood Pressure Mean 125 Blood Pressure Mean [Right Arm] Blood Pressure Position [Right Arm] Pulse Oximetry 99 98 Oxygen Delivery Method Sepsis Recent Fever Within 48 Hours Sepsis New/Unexplained Change in Mental Status Sepsis Action Taken by Nursing 08/26/19 03:17 08/26/19 03:20 08/26/19 03:21 Temperature Temperature Source Pulse Rate 116 H 101 H 110 H Pulse Rate [Apical] Pulse Rate from SpO2 Sensor Respiratory Rate 14 13 12 Respiratory Effort / Characteristics Respiratory Depth Respiratory Pattern Blood Pressure 107/82 101/54 L Blood Pressure [Right Arm] Blood Pressure Mean 94 69 Blood Pressure Mean [Right Arm] Blood Pressure Position [Right Arm] Pulse Oximetry Oxygen Delivery Method Sepsis Recent Fever Within 48 Hours Sepsis New/Unexplained Change in Mental Status Sepsis Action Taken by Nursing 08/26/19 03:30 08/26/19 03:35 08/26/19 03:40 Temperature Temperature Source Pulse Rate 124 H 125 H 133 H Pulse Rate [Apical] Pulse Rate from SpO2 Sensor Respiratory Rate 16 14 26 H Respiratory Effort / Characteristics Respiratory Depth Respiratory Pattern Blood Pressure 135/63 Blood Pressure [Right Arm] Blood Pressure Mean 91 Blood Pressure Mean [Right Arm] Blood Pressure Position [Right Arm] Pulse Oximetry Oxygen Delivery Method Sepsis Recent Fever Within 48 Hours Sepsis New/Unexplained Change in Mental Status Sepsis Action Taken by Nursing 08/26/19 03:44 08/26/19 04:33 Temperature Temperature Source Pulse Rate 131 H Pulse Rate [Apical] 119 H Pulse Rate from SpO2 Sensor Respiratory Rate 18 18 Respiratory Effort / Characteristics Non-Labored Respiratory Depth Normal Respiratory Pattern Regular Blood Pressure 136/73 Blood Pressure [Right Arm] 116/72 Blood Pressure Mean 100 Blood Pressure Mean [Right Arm] 86 Blood Pressure Position [Right Arm] Lying Pulse Oximetry 95 Oxygen Delivery Method Room Air Sepsis Recent Fever Within 48 Hours Sepsis New/Unexplained Change in Mental Status Sepsis Action Taken by Nursing Laboratory Data Result diagrams: 08/26/19 04:39 08/26/19 04:39 Lab Results 08/26/19 08/26/19 08/26/19 Range/Units 03:08 03:08 03:08 WBC 4.18 L (4.8-10.8) K/uL RBC 2.32 L (4.2-5.4) M/uL Hgb 7.5 L (12.0-16.0) g/dL POC Hgb (12.0-16.0) g/dl Hct 22.0 L (37-47) % POC Hct (37-47) % MCV 94.8 (80-100) fL MCH 32.3 (25-34) pg MCHC 34.1 (32-36) g/dL RDW Std Deviation 49.4 H (36.4-46.3) fL RDW Coeff of Myra 14.4 (11.5-14.5) % Plt Count 143 (130-400) K/uL MPV 9.4 (7.4-10.4) fL Immature Gran % (Auto) 0.0 % Neut % (Auto) 79.7 % Lymph % (Auto) 12.2 % [place] % (Auto) 6.7 % Eos % (Auto) 1.2 % Baso % (Auto) 0.2 % Neut # (Auto) 3.33 (1.4-6.5) K/uL Lymph # (Auto) 0.51 L (1.2-3.4) K/uL [place] # (Auto) 0.28 (0.11-0.59) K/uL Eos # (Auto) 0.05 (0-0.5) K/uL Baso # (Auto) 0.01 (0-0.2) K/uL Immature Gran # (Auto) 0.00 (0.00-0.02) K/uL RBC Morphology Unremarkable PT 13.2 H (9.0-12.0) Seconds INR 1.3 H (0.9-1.1) APTT (21.0-31.0) Seconds PTT Ratio POC Sodium (135-144) mmol/L Sodium Cancelled POC Potassium (3.3-5.0) mmol/L Potassium Cancelled POC Chloride (101-112) mmol/L Chloride Cancelled Carbon Dioxide Cancelled POC Total CO2 (24-31) mmol/L Anion Gap Cancelled POC Anion Gap (16-25) mmol/L POC BUN (7-18) mg/dl BUN Cancelled Creatinine Cancelled POC Creatinine (0.6-1.3) mg/dl Est Cr Clr Drug Dosing Cancelled Est GFR ( Amer) Cancelled Est GFR (Non-Af Amer) Cancelled BUN/Creatinine Ratio Cancelled Glucose Cancelled POC Glucose (other) (70-99) mg/dl Calcium Cancelled POC Ioniz Calcium Bryan (1.12-1.32) mmol/l Magnesium Cancelled Total Bilirubin Cancelled Direct Bilirubin Cancelled AST Cancelled ALT Cancelled Alkaline Phosphatase Cancelled Troponin I Cancelled Total Protein Cancelled Albumin Cancelled Lipase Cancelled TSH Cancelled Urine Color Urine Appearance (Clear) Urine pH (4.5-7.5) Ur Specific [place] (1.000-1.030) Urine Protein (Negative) Urine Glucose (UA) (Negative) Urine Ketones (Negative) Urine Blood (Negative) Urine Nitrite (Negative) Urine Bilirubin (Negative) Urine Urobilinogen (Negative) Ur Leukocyte Esterase (Negative) Urine WBC (Auto) (0-5) /hpf Urine RBC (Auto) (0-4) /hpf U Hyaline Cast (Auto) (0-5) /lpf U Epithel Cells (Auto) (0-5) /lpf Urine Bacteria (Auto) (Negative) 08/26/19 08/26/19 08/26/19 Range/Units 03:40 04:17 04:39 WBC 8.70 (4.8-10.8) K/uL RBC 3.81 L (4.2-5.4) M/uL Hgb 12.0 D (12.0-16.0) g/dL POC Hgb 12.2 (12.0-16.0) g/dl Hct 36.3 L (37-47) % POC Hct 36 L (37-47) % MCV 95.3 (80-100) fL MCH 31.5 (25-34) pg MCHC 33.1 (32-36) g/dL RDW Std Deviation 50.1 H (36.4-46.3) fL RDW Coeff of Myra 14.4 (11.5-14.5) % Plt Count 241 D (130-400) K/uL MPV 10.1 (7.4-10.4) fL Immature Gran % (Auto) 0.1 % Neut % (Auto) 84.7 % Lymph % (Auto) 7.9 % [place] % (Auto) 6.6 % Eos % (Auto) 0.5 % Baso % (Auto) 0.2 % Neut # (Auto) 7.37 H (1.4-6.5) K/uL Lymph # (Auto) 0.69 L (1.2-3.4) K/uL [place] # (Auto) 0.57 (0.11-0.59) K/uL Eos # (Auto) 0.04 (0-0.5) K/uL Baso # (Auto) 0.02 (0-0.2) K/uL Immature Gran # (Auto) 0.01 (0.00-0.02) K/uL RBC Morphology PT (9.0-12.0) Seconds INR (0.9-1.1) APTT (21.0-31.0) Seconds PTT Ratio POC Sodium 142 (135-144) mmol/L Sodium POC Potassium 3.1 L (3.3-5.0) mmol/L Potassium POC Chloride 110 (101-112) mmol/L Chloride Carbon Dioxide POC Total CO2 20 L (24-31) mmol/L Anion Gap POC Anion Gap 16.0 (16-25) mmol/L POC BUN 9 (7-18) mg/dl BUN Creatinine POC Creatinine 0.7 (0.6-1.3) mg/dl Est Cr Clr Drug Dosing Est GFR ( Amer) Est GFR (Non-Af Amer) BUN/Creatinine Ratio Glucose POC Glucose (other) 187 H (70-99) mg/dl Calcium POC Ioniz Calcium Bryan 1.10 L (1.12-1.32) mmol/l Magnesium Total Bilirubin Direct Bilirubin AST ALT Alkaline Phosphatase Troponin I Total Protein Albumin Lipase TSH Urine Color Yellow Urine Appearance Clear (Clear) Urine pH 6.5 (4.5-7.5) Ur Specific [place] 1.007 (1.000-1.030) Urine Protein Negative (Negative) Urine Glucose (UA) Negative (Negative) Urine Ketones Negative (Negative) Urine Blood Negative (Negative) Urine Nitrite Negative (Negative) Urine Bilirubin Negative (Negative) Urine Urobilinogen Negative (Negative) Ur Leukocyte Esterase 1+ H (Negative) Urine WBC (Auto) 1-5 (0-5) /hpf Urine RBC (Auto) 0-4 (0-4) /hpf U Hyaline Cast (Auto) 0 (0-5) /lpf U Epithel Cells (Auto) 5-10 H (0-5) /lpf Urine Bacteria (Auto) Negative (Negative) 08/26/19 08/26/19 Range/Units 04:39 04:39 WBC (4.8-10.8) K/uL RBC (4.2-5.4) M/uL Hgb (12.0-16.0) g/dL POC Hgb (12.0-16.0) g/dl Hct (37-47) % POC Hct (37-47) % MCV (80-100) fL MCH (25-34) pg MCHC (32-36) g/dL RDW Std Deviation (36.4-46.3) fL RDW Coeff of Myra (11.5-14.5) % Plt Count (130-400) K/uL MPV (7.4-10.4) fL Immature Gran % (Auto) % Neut % (Auto) % Lymph % (Auto) % [place] % (Auto) % Eos % (Auto) % Baso % (Auto) % Neut # (Auto) (1.4-6.5) K/uL Lymph # (Auto) (1.2-3.4) K/uL [place] # (Auto) (0.11-0.59) K/uL Eos # (Auto) (0-0.5) K/uL Baso # (Auto) (0-0.2) K/uL Immature Gran # (Auto) (0.00-0.02) K/uL RBC Morphology PT 10.6 (9.0-12.0) Seconds INR 1.0 (0.9-1.1) APTT 24.2 (21.0-31.0) Seconds PTT Ratio 0.9 POC Sodium (135-144) mmol/L Sodium 146 H POC Potassium (3.3-5.0) mmol/L Potassium 3.5 POC Chloride (101-112) mmol/L Chloride 116 H Carbon Dioxide 24 POC Total CO2 (24-31) mmol/L Anion Gap 6.0 POC Anion Gap (16-25) mmol/L POC BUN (7-18) mg/dl BUN 11 Creatinine 0.85 POC Creatinine (0.6-1.3) mg/dl Est Cr Clr Drug Dosing 52.5 Est GFR ( Amer) 78.2 Est GFR (Non-Af Amer) 67.5 BUN/Creatinine Ratio 12.9 Glucose 143 H POC Glucose (other) (70-99) mg/dl Calcium 8.5 POC Ioniz Calcium Bryan (1.12-1.32) mmol/l Magnesium 2.0 Total Bilirubin 0.9 Direct Bilirubin 0.2 AST 52 H ALT 27 Alkaline Phosphatase 187 H Troponin I 1.870 H* Total Protein 6.9 Albumin 3.1 L Lipase 56 L TSH 4.020 Urine Color Urine Appearance (Clear) Urine pH (4.5-7.5) Ur Specific [place] (1.000-1.030) Urine Protein (Negative) Urine Glucose (UA) (Negative) Urine Ketones (Negative) Urine Blood (Negative) Urine Nitrite (Negative) Urine Bilirubin (Negative) Urine Urobilinogen (Negative) Ur Leukocyte Esterase (Negative) Urine WBC (Auto) (0-5) /hpf Urine RBC (Auto) (0-4) /hpf U Hyaline Cast (Auto) (0-5) /lpf U Epithel Cells (Auto) (0-5) /lpf Urine Bacteria (Auto) (Negative) Administered Medications Amiodarone HCl (Cordarone) 200 mg PO TIDM [facility] Stop: 09/25/19 11:59 Last Admin: 08/26/19 16:25 Dose: 200 mg Documented by: [id number] Admin: 08/26/19 13:01 Dose: 200 mg Documented by: [id number] Heparin Sodium/Dextrose (Heparin Sodium/Dextrose) 25,000 units in 500 mls @ 0 mls/hr IV .Q0M VIVEK; Protocol Stop: 09/25/19 06:47 Last Titration: 08/26/19 22:47 Dose: 0 units/hr, 0 mls/hr Documented by: [id number] Cosigned by: [id number] Titration: 08/26/19 19:17 Dose: 800 units/hr, 16 mls/hr Documented by: [id number] Cosigned by: [id number] Titration: 08/26/19 15:14 Dose: 800 units/hr, 16 mls/hr Documented by: [id number] Cosigned by: [id number] Admin: 08/26/19 07:42 Dose: 700 units/hr, 14 mls/hr Documented by: [id number] Cosigned by: [id number] Potassium Chloride/Sodium Chloride (1/2 Nss + 20meq Kcl 1000ml) 20 meq in 1,000 mls @ 100 mls/hr IV .Q10H [facility] Stop: 09/25/19 08:59 Last Admin: 08/26/19 20:12 Dose: 100 mls/hr Documented by: [id number] Infusion: 08/26/19 19:35 Dose: 100 mls/hr Documented by: [id number] Admin: 08/26/19 09:35 Dose: 100 mls/hr Documented by: [id number] Ioversol (Optiray 320 125ml) 118 ml IV ONCE PRN PRN Reason: Interaction Checking Stop: 08/30/19 10:05 Last Admin: 08/26/19 10:06 Dose: 118 ml Documented by: [id number] Metoprolol Succinate (Toprol Xl) 25 mg PO [facility] Stop: 09/25/19 09:14 Last Admin: 08/26/19 09:35 Dose: 25 mg Documented by: [id number] Vitamin D (Vitamin D3) 2,000 units PO [facility] Stop: 09/25/19 08:59 Last Admin: 08/26/19 08:03 Dose: 2,000 units Documented by: [id number] Discontinued Medications Clopidogrel Bisulfate (Plavix) 300 mg PO NOW STA Stop: 08/26/19 12:30 Last Admin: 08/26/19 13:01 Dose: 300 mg Documented by: [id number] Diltiazem HCl (Cardizem) 15 mg IV NOW STA Stop: 08/26/19 02:51 Last Admin: 08/26/19 02:59 Dose: 15 mg Documented by: [id number] Cosigned by: [id number] Diltiazem HCl (Cardizem) 15 mg IV NOW STA Stop: 08/26/19 03:14 Last Admin: 08/26/19 03:18 Dose: 15 mg Documented by: [id number] Cosigned by: [id number] Diltiazem HCl 125 mg/ Dextrose 125 mls @ 5 mls/hr IV .Q24H ONE; Protocol Stop: 08/27/19 03:12 Last Titration: 08/26/19 06:53 Dose: 0 mg/hr, 0 mls/hr Documented by: [id number] Cosigned by: [id number] Titration: 08/26/19 03:58 Dose: 10 mg/hr, 10 mls/hr Documented by: [id number] Cosigned by: [id number] Admin: 08/26/19 03:45 Dose: 5 mg/hr, 5 mls/hr Documented by: [id number] Cosigned by: [id number] Sodium Chloride (Nss 1000ml) 1,000 mls @ 75 mls/hr IV .[id number] VIVEK Stop: 08/26/19 17:00 Last Infusion: 08/26/19 09:35 Dose: 0 mls/hr Documented by: [id number] Admin: 08/26/19 07:41 Dose: 75 mls/hr Documented by: [id number] Heparin Sodium (Porcine) 4,000 (units/ Syringe) 4 mls @ 10 mls/min IV ONE ONE Stop: 08/26/19 15:31 Last Admin: 08/26/19 15:26 Dose: 10 mls/min Documented by: [id number] Cosigned by: [id number] Metoprolol Tartrate (Lopressor) 2.5 mg IV NOW STA Stop: 08/26/19 05:50 Last Admin: 08/26/19 06:44 Dose: 2.5 mg Documented by: [id number] Potassium Chloride (Saumya Ciel Elix) 20 meq PO 0715 ONE Stop: 08/26/19 07:16 Last Admin: 08/26/19 07:42 Dose: 20 meq Documented by: [id number] Discharge Plan Visit Data *Final* Discharge Date/Time: 08/26/19 06:15 Chief Complaint: Chest Pain Stated Complaint: CHEST PAIN ED Provider: Kaden Larose Discharge Problem: Atrial fibrillation with rapid ventricular response, Elevated troponin Patient Disposition: Admitted As Inpatient Discharge Instructions Interventions: ED Discharge Assessment Last Done: 08/26/19 06:15
[2019-08-26] MEDS ORDERED: dilTIAZem HCL 125 MG in DEXTROSE 5% 100 ML IV ONE (03:13)
[2019-08-26 03:26] LABS: INR 1.3 (0.9-1.1); Prothrombin Time 13.2 Seconds (9.0-12.0)
[2019-08-26 03:55] LABS: Appearance Urine Clear (Clear); Bacteria Urine Automated Negative (Negative); Bilirubin Urine Negative (Negative); Blood Urine Negative (Negative); Cast Urine Automated 0 /lpf (0-5); Color Urine Yellow; Glucose Urine UA Negative (Negative); Ketones Urine Negative (Negative); Leukocyte Esterase Urine 1+ (Negative); Nitrite Urine Negative (Negative); Protein Urine Negative (Negative); RBC Urine Automated 0-4 /hpf (0-4); Specific Gravity Urine 1.007 (1.000-1.030); Urobilinogen Urine Negative (Negative); pH Urine 6.5 (4.5-7.5)
[2019-08-26 04:30] LABS: iSTAT Creatinine 0.7 mg/dl (0.6-1.3); iSTAT Hemoglobin 12.2 g/dl (12.0-16.0); iSTAT Ionized Calcium 1.1 mmol/l (1.12-1.32); iSTAT Potassium 3.1 mmol/L (3.3-5.0)
[2019-08-26 04:57] LABS: Partial Thromboplastin Ratio 0.9; Partial Thromboplastin Time 24.2 Seconds (21.0-31.0); Prothrombin Time 10.6 Seconds (9.0-12.0)
[2019-08-26 05:14] LABS: Albumin Level 3.1 gm/dl (3.4-5.0); BUN Creatinine Ratio 12.9 (10-20); Bilirubin Direct 0.2 mg/dl (0-0.2); Calcium 8.5 mg/dl (8.5-10.1); Creatinine Clr Calc Pharmacy 52.5 ml/min; Est GFR (African American) 78.2; Est GFR (Non-African American) 67.5; Potassium 3.5 mmol/L (3.5-5.1)
[2019-08-26 05:17] LABS: Basophils # (auto) 0.02 K/uL (0-0.2); Basophils % (auto) 0.2 %; Eosinophils # (auto) 0.04 K/uL (0-0.5); Eosinophils % (auto) 0.5 %; Hematocrit (blood only) 36.3 % (37-47); Immature Granulocytes # (auto) 0.01 K/uL (0.00-0.02); Immature Granulocytes % (auto) 0.1 %; Lymphocytes # (auto) 0.69 K/uL (1.2-3.4); Lymphocytes % (auto) 7.9 %; Mean Corpuscular Hemoglobin 31.5 pg (25-34); Mean Corpuscular Hgb Conc 33.1 g/dL (32-36); Mean Corpuscular Volume 95.3 fL (80-100); Mean Platelet Volume 10.1 fL (7.4-10.4); Monocytes # (auto) 0.57 K/uL (0.11-0.59); Monocytes % (auto) 6.6 %; Neutrophils # (auto) 7.37 K/uL (1.4-6.5); Neutrophils % (auto) 84.7 %; Platelet Count 241 K/uL (130-400); RDW Coefficient of Variation 14.4 % (11.5-14.5); RDW Standard Deviation 50.1 fL (36.4-46.3); Red Blood Count 3.81 M/uL (4.2-5.4)
[2019-08-26 05:18] LABS: Bilirubin,Total 0.9 mg/dl (0.2-1); Thyroid Stimulating Hormone 4.02 uIu/ml (0.300-4.500); Total Protein 6.9 gm/dl (6.4-8.2); Troponin I 1.87 ng/ml (0-0.045)
[2019-08-26] MEDS ORDERED: METOPROLOL TARTRATE 1 MG/ML VIAL IV PRN (05:48)
[2019-08-26] MEDS ORDERED: METOPROLOL TARTRATE 1 MG/ML VIAL IV STA (05:49)
[2019-08-26] MEDS ORDERED: POLYETHYLENE (MIRALAX) 17 GM PACK PO PRN (06:48)
[2019-08-26] MEDS ORDERED: NITROGLYCERIN SL 0.4 MG/TAB TAB SL PRN (06:48)
[2019-08-26] MEDS ORDERED: SODIUM CHLORIDE 0.9% 1000ML 1,000 ML IV SCH (06:48)
[2019-08-26] MEDS ORDERED: STAT IV Infusion **Titration per Protocol STA (06:48)
[2019-08-26] MEDS ORDERED: ONDANSETRON INJ 2 MG/ML 2 ML VIAL IV PRN (06:48)
[2019-08-26] MEDS ORDERED: Heparin IV Low Dose *NO* Bolus ONE (06:48)
--- NOTE | 2019-08-26 06:48 | XRay Report ---
XR chest 1V portable CLINICAL HISTORY: Tachycardia dyspnea COMPARISON STUDY: 11/09/2018 FINDINGS: Mild cardiomegaly. Chronic prominence of pulmonary vasculature. Diaphragms are smooth. IMPRESSION: Mild stable cardiomegaly. Chronic pulmonary vascular congestion. ACT 112: Negative or not required by law. The above report was generated using voice recognition software. It may contain grammatical, syntax or spelling errors. Electronically signed by: Cal Felix M.D. 08/26/2019 6:47 AM
--- NOTE | 2019-08-26 06:52 | Hospitalist Progress Note ---
Date of Service August 26, 2019 Assessment & Plan (1) Atrial fibrillation with rapid ventricular response: (2) Elevated troponin: (3) Chest pain: Seen by my partner today, cardiac w/u in progress ROS-No Headache, No Visual Changes, No Nausea, No Vomiting, No Fever, No Chills, No Neck Pain or Stiffness, + Chest Pain, No Palpitations, No SOB, No ROD, No Cough, No Sputum, No Wheezing, No Abdominal Pain, No Diarrhea, No Hematemesis, No Hemoptysis, No Unexpected Weight Loss, No Flank pain, No Melena, No Hematochezia, No Frequency, No Urgency, No Burning, No Hematuria, No Rashes, No Diaphoresis. Appetite is Normal Physical Exam Gen-AAO x 3, NAD, Afebrile, uncomfortable Head-NCAT, EOMI, PERRLA, Anicteric Sclera, No Posterior Pharyngeal Erythema Neck-Supple, No JVD, No Thyromegaly, No Masses, No LAD, No Bruits Lungs-Clear to Auscultation Bilaterally, No Rales, No Rhonchi, No Wheezing, No Crepitus Chest-No S4, +S1, +S2, No S3, No Murmurs, No Rubs, No Gallops, No Ectopy Abdomen-Soft, Bowel Sounds Present, Non Tender, Non Distended, No Hepatomegaly, No Splenomegaly, No Palpable Masses, No Rebound, No Rigidity, No Guarding Musculoskeletal-Full Range of Motion Bilaterally, No CVAT Extremities-No Cyanosis, No Clubbing, No Edema Nuero-Cranial Nerves II-XII grossly intact, Motor WNL, DTRs WNL, Strength WNL, Non Focal Psych-Normal Mood Admission and Anticipated Discharge Date Admission Date: August 26, 2019 Results & Data Results & Data ([facility]) Vital Signs (Past 12 Hours) Vital Signs Temp Pulse Pulse Resp BP BP Pulse Ox 08/26/19 06:44 112 H 08/26/19 06:33 36.5 C 63 18 112/73 98 08/26/19 06:15 100 H 18 113/74 95 08/26/19 04:33 119 H 18 116/72 95 08/26/19 03:44 131 H 18 136/73 08/26/19 03:40 133 H 26 H 08/26/19 03:35 125 H 14 135/63 08/26/19 03:30 124 H 16 08/26/19 03:21 110 H 12 08/26/19 03:20 101 H 13 101/54 L 08/26/19 03:17 116 H 14 107/82 08/26/19 03:10 116 H 18 08/26/19 03:01 135 H 23 143/104 H 98 08/26/19 03:00 127 H 15 99 08/26/19 02:50 138 H 13 08/26/19 02:48 137 H 12 130/91 08/26/19 02:33 37.1 C 135 H 18 130/91 95 (1) Chest pain Chest pain type: unspecified Qualified Code(s): R07.9 - Chest pain, u nspecified
[2019-08-26] MEDS ORDERED: ALBUTEROL HFA 8 GM INHALER INH PRN (07:07)
[2019-08-26] MEDS ORDERED: POTASSIUM CHLORIDE 20 MEQ/15 ML UDC PO ONE (07:15)
[2019-08-26] MEDS ORDERED: Heparin Adult STANDARD Wt-Based Dextrose 5% 25,000 units/500 mL IV SCH (07:15)
[2019-08-26] MEDS: HEPARIN SODIUM/DEXTROSE 25,000 UNITS/500 ML BAG IV SCH (07:42)
[2019-08-26] MEDS: CHOLECALCIFEROL 1,000 UNITS 25 MCG TAB PO SCH (08:03)
--- NOTE | 2019-08-26 08:30 | Cardiology Consultation ---
Date of Consultation August 26, 2019 Assessment & Plan (1) NSTEMI (non-ST elevated myocardial infarction): The patient typically follows with [facility] cardiology. She describes having "multiple "cardiac catheterization procedures, the most recent of which she believes to present 2015 and she states it was "normal". Unfortunately this report is not available for review at present, and is not in her outpatient [facility] record either. She had a nonischemic response to dobutamine stress echocardiogram in October 2018. The patient did not have a sense of a fast or irregular heartbeat with the onset of her symptoms last evening. She however did have chest pressure, ventricular tachycardia noted on presentation when EMS arrived, and then significant ST segment depression in the setting of atrial fibrillation with rapid ventricular response after confucianist of sinus rhythm with amiodarone administered in the field. Her troponin this morning was 3.56, up from 1.86 on presentation. Since her heart rates have improved, she has been free of chest discomfort. At the time of my assessment, sinus rhythm was present, and she felt completely well. Bedside echocardiogram was reviewed personally by the undersigned, and the contrast images suggest right ventricular chamber size and RV dysfunction. A subtle left ventricular apical and septal wall motion abnormality cannot be excluded, with normal LVEF. Mild to moderate mitral regurgitation is present. Due to the patient's risk factors including cancer, and her left calf pain she was referred for a stat CT angiogram. This study was somewhat technically limited, but no pulmonary embolism was noted in the large vessels. Still have a high clinical suspicion however for venous thromboembolic disease, we will therefore proceed with lower extremity venous duplex as well. Continue unfractioned heparin. Patient is unable to take aspirin as she has a history of "asthma". She has a history of bleeding complication from her rectum in the past. Pending results of the lower extremity venous duplex, I am going to hold off on antiplatelet therapy with clopidogrel as a substitute for aspirin. If the lower extremity venous duplex is negative, will proceed with clopidogrel. (2) Sustained ventricular tachycardia: Prehospital EKG is concerning for ventricular tachycardia at 235 bpm. LVEF is normal. Start metoprolol 25 mg daily, amiodarone 200 mg 3 times daily with meals. The patient's TSH is within normal limits, AST is minimally elevated at 52 units/L. She is not an ideal candidate for amiodarone given her history of liver metastasis, given her life-threatening ventricular arrhythmia, I believe the amiodarone is the best treatment option at present pending further assessment. (3) Paroxysmal atrial fibrillation with rapid ventricular response: The patient has a known history of paroxysmal atrial fibrillation. She had previously been anticoagulated with Xarelto however this was discontinued in February 2019 with the patient had a mechanical fall with head trauma. She also had bleeding per rectum in the past after surgical intervention for a deana-rectal abscess/fistula. Hemoglobin platelet count are stable at present. Unfractioned heparin for now. (4) Metastatic carcinoid tumor: Recent PET scan results as noted in HPI. She has been receiving treatment for this, having previously been followed by Dr. Darrick Escalera, as well as [place]ology [place] [facility] (5) Hypernatremia: This appears to be a chronic finding, sodium levels in the range of 144 to 145 mmol/L on recent outpatient chemistry panels. Given concerns of volume depletion, will proceed with one half normal saline. (6) Thoracic ascending aortic aneurysm: 4.5 cm ascending thoracic aortic aneurysm noted on recent PET/CT on 08/23/2019, 4.[address] performed today. Continue to follow. History of Present Illness Attending Physician: Tunde Lopez DO History of Present Illness Sofia Garzon is a 74 year old female seen in cardiology consultation per the request of Dr Cagle for the evaluation of atrial fibrillation with rapid ventricular response and elevation in troponin I with initial measurement of 1.87 ng/ml at 4:39 am and 3.56 today on 7:24 am.The patient's PCP is Dr Cullen of [facility]. She apparently follows with [facility] cardiology as an outpatient. The patient presented to the ED via EMS with complaints of palpitations and chest discomfort. She has history rectal bleeding prompting hospitalization 09/2018 for rectal bleeding after a surgical intervention for perirectal abscess / fistula. She also has a history of carcinoid tumor with hepatic metastasis since 2016. She describes onset of a "needle "feeling in her chest that progressed to a chest pressure overnight last night that started at 11 PM. EMS arrived on 08/26/2019 and EKG performed by EMS at 1:39 AM reveals a wide-complex tachycardia at 235 bpm, with morphology consistent with ventricular tachycardia. The patient received a 150 mg bolus of IV amiodarone and a subsequent EKG performed by paramedics revealed atrial fibrillation with rapid ventricular response at 144 bpm with noted severe ST segment depression in the precordial leads most prominently in the lateral precordial leads. EKG performed at 2:47 AM in the emergency department revealed atrial fibrillation at 133 bpm with nonspecific interventricular conduction delay, ongoing lateral ST segment depression, however it was much less prominent at that time. Her telemetry was reviewed and she had converted spontaneously back to sinus rhythm at 8:26 AM, postconversion EKG performed at the bedside at the time of my assessment at 928 this morning reveals normal sinus rhythm at 63 bpm, with very mild lateral repolarization changes, with resolution of the previously noted ST segment depression, and the current tracing actually looks little bit better than her other previous tracings from June and February this year. The corrected QT interval on the sinus rhythm EKG this morning is normal at 429 ms. On review of systems, the patient also notes recent left calf pain. Summary of radiology report of recent PET / CT scan with administration of intravenous administration of 4.84 mCi Ga-68 DOTA-Octreotate within [employer]la system dated 08/23/19: 1. Octreotide-avid mesenteric mass with coarse calcification in the right lower quadrant corresponds to the patient's known history of malignant carcinoid tumor. 2. Indeterminate octreotide-avid focus within the proximal transverse colon. Consider evaluation with colonoscopy. 3. Innumerable octreotide-avid liver metastases. The larger liver metastases demonstrate central necrosis. 4. Ascending thoracic aortic aneurysm measuring up to 4.5 cm. Allergies Allergy/AdvReac Type Severity Reaction Status Date / Time nut - unspecified Allergy Severe throat Verified 08/26/19 03:07 swelling aspirin Allergy Intermediate "ASTHMA" Verified 08/26/19 03:07 celecoxib Allergy Intermediate "ASTHMA Verified 08/26/19 03:07 ATTACK" codeine Allergy Intermediate "FACE Verified 08/26/19 03:07 PUFFS UP" morphine Allergy Intermediate "FACE Verified 08/26/19 03:07 PUFFS UP" latex Allergy Mild RASH Verified 08/26/19 03:07 caffeine AdvReac Intermediate HEADACHE Verified 08/26/19 03:07 midazolam AdvReac Intermediate extreme Verified 08/26/19 03:07 anxiety fentanyl AdvReac Mild DELIRIUM Verified 08/26/19 03:07 lorazepam AdvReac Mild ANXIOUS Verified 08/26/19 03:07 Home Medications Home Medications Medication Instructions Recorded Confirmed Type cholecalciferol (vitamin D3) 2,000 units PO QAM 04/09/18 08/26/19 History [Vitamin D3] albuterol sulfate 2 puffs INH Q6H PRN #1 ea 08/15/18 08/26/19 Rx acetaminophen 325 mg tablet 325 mg PO Q6H PRN 12/13/18 08/26/19 History lanreotide 120 mg/0.5 mL 0 mg SQ MONTHLY ml 12/13/18 08/26/19 History subcutaneous syringe Patient History Social History Preferred Language: Norwegian Communication Ability: Effective Proposal Specialist Required: No Beliefs That Will Affect Care: None marital status: Current Living Situation: Family Current Living Situation Comment: house Other Information That Helps Us Care for You: No Feels Safe at Home: Yes Safety Concerns: Feels Safe At This Time Smoking Status: Never smoker Second Hand Exposure: No ; Hx Alcohol Use: No Hx Substance Use: No Review of Systems Review of Systems: All systems reviewed & are unremarkable except as noted in HPI & below Physical Exam Physical Exam: Temp Pulse Resp BP Pulse Ox 37.3 C 88 20 137/91 94 08/26/19 07:29 08/26/19 07:32 08/26/19 07:29 08/26/19 07:29 08/26/19 07:29 Constitutional: WD/WN, vitals as above Respiratory: normal respiratory effort, lungs clear to auscultation Cardiovascular: Rate/Rhythm: regular rhythm Heart Sounds: normal S1, normal S2 and + murmur (1/6 systolic murmur heard best at the apex) Vessels: no JVD Extremities: no edema Gastrointestinal (Abdomen): normal bowel sounds, soft, nontender, no hepatosplenomegaly Neurologic: PERRL, EOMI, accommodation nl, no face palsy, no dysarthria Results & Data ([facility]) Vital Signs (Past 12 Hours) Vital Signs Temp Pulse Pulse Resp BP BP Pulse Ox 08/26/19 07:32 88 08/26/19 07:29 37.3 C 93 H 20 137/91 94 08/26/19 06:44 112 H 08/26/19 06:33 36.5 C 63 18 112/73 98 08/26/19 06:15 100 H 18 113/74 95 08/26/19 04:33 119 H 18 116/72 95 08/26/19 03:44 131 H 18 136/73 08/26/19 03:40 133 H 26 H 08/26/19 03:35 125 H 14 135/63 08/26/19 03:30 124 H 16 08/26/19 03:21 110 H 12 08/26/19 03:20 101 H 13 101/54 L 08/26/19 03:17 116 H 14 107/82 08/26/19 03:10 116 H 18 08/26/19 03:01 135 H 23 143/104 H 98 08/26/19 03:00 127 H 15 99 08/26/19 02:50 138 H 13 08/26/19 02:48 137 H 12 130/91 08/26/19 02:33 37.1 C 135 H 18 130/91 95 Laboratory Results Cardiac Enzymes 08/26/19 08/26/19 08/26/19 Range/Units 03:08 04:39 07:24 AST Cancelled 52 H Troponin I Cancelled 1.870 H* 3.560 H* Coagulation 08/26/19 08/26/19 Range/Units 03:08 04:39 PT 13.2 H 10.6 (9.0-12.0) Seconds APTT 24.2 (21.0-31.0) Seconds CBC 08/26/19 08/26/19 Range/Units 03:08 04:39 WBC 4.18 L 8.70 (4.8-10.8) K/uL RBC 2.32 L 3.81 L (4.2-5.4) M/uL Hgb 7.5 L 12.0 D (12.0-16.0) g/dL Hct 22.0 L 36.3 L (37-47) % Plt Count 143 241 D (130-400) K/uL Neut # (Auto) 3.33 7.37 H (1.4-6.5) K/uL Lymph # (Auto) 0.51 L 0.69 L (1.2-3.4) K/uL [place] # (Auto) 0.28 0.57 (0.11-0.59) K/uL Eos # (Auto) 0.05 0.04 (0-0.5) K/uL Baso # (Auto) 0.01 0.02 (0-0.2) K/uL Comprehensive Metabolic Panel 08/26/19 08/26/19 Range/Units 03:08 04:39 Sodium Cancelled 146 H Potassium Cancelled 3.5 Chloride Cancelled 116 H Carbon Dioxide Cancelled 24 BUN Cancelled 11 Creatinine Cancelled 0.85 Glucose Cancelled 143 H Calcium Cancelled 8.5 Direct Bilirubin Cancelled 0.2 AST Cancelled 52 H ALT Cancelled 27 Alkaline Phosphatase Cancelled 187 H Total Protein Cancelled 6.9 Albumin Cancelled 3.1 L Intake and Output 08/25/19 08/26/19 08/26/19 22:59 06:59 14:59 Intake Total 30.250 / 30.250 142.5 / 142.5 Output Total Balance 30.250 / 30.250 141.5 / 141.5 Intake: IV 30.250 / 30.250 142.5 / 142.5 Nss 1000ML 1,000 ml @ 75 mls/hr 142.5 / 142.5 IV .[id number] [facility] Rx#:[id number] Cardizem 125 mg In D5 100 ml @ 30.250 / 30.250 5 MG/HR 5 mls/hr IV .Q24H ONE Rx#:[id number] Output: # Bowel Movements Other: # Unmeasured Voids 1 Weight 63.6 kg 63.6 kg Patient Weight 08/27/19 06:59 Weight 63.[address] Angio of the chest, pulmonary embolism protocol, summary of radiology report 620 10/17: 1. No evidence for pulmonary embolus with limitations as described above. 2. Stable subcentimeter pulmonary nodules. 3. Mild aneurysmal dilatation of the ascending thoracic aorta measuring up to 4.3 cm in diameter. 4. Faint groundglass density within the periphery of the right upper and lower lobes posteriorly. This favors mild dependent change. A focus of inflammatory/infectious change could also a similar appearance.
--- NOTE | 2019-08-26 09:02 | History and Physical Report ---
DATE OF ADMISSION: 08/26/2019 CHIEF COMPLAINT: Chest pain and palpitations. HISTORY OF PRESENT ILLNESS: A 74-year-old female with past medical history significant for stage IV neuroendocrine tumor with metastatic spread to small bowel mesentery and liver, history of carcinoid syndrome, perirectal abscess status post surgical intervention, history of UTI, history of atrial fibrillation, asthma with severity to be determined, osteoarthrosis, who lives with her and daughter, comes in because of chest pain and palpitations. The patient says she woke up with pins and needles in the chest and felt short of breath, sweating and nausea and she felt her heart was racing. She asked her daughter to call the EMS and came in here and she was found to be in rapid AFib. She was started on Cardizem drip. Currently resting comfortably. Heart rate is still somewhat high, but the patient states that her chest pain got resolved. She says is always dizzy. Denies any headache. She had some floaters earlier but that has resolved. Denies any earache, no runny nose, no sore throat, no cough, no loss of sense of smell or taste. Appetite is okay. No dysphagia. Does not sleep well. Currently, no nausea, no abdominal pain. Normal bowel and bladder movements. No hematuria or blood in the stools. No rash. No swelling in the legs. She ambulates with a walker. She cannot climb steps. ALLERGIES: NUT, ASPIRIN,LORAZEPAM,MORPHINE, CODEINE, LATEX, NSAIDS, CAFFEINE, FURACIN , ALCOHOL. PAST MEDICAL HISTORY: As mentioned above. PAST SURGICAL HISTORY: Drainage of anal abscess, removal of adenoids, removal of appendix, total abdominal hysterectomy with removal of tubes. MEDICATIONS: The patient currently on lanreotide 120 mg once monthly, vitamin D 2000 units q.a.m., albuterol 2 puffs inhalation q.6 hours p.r.n., Tylenol 325 mg p.o. q.6 hours p.r.n. FAMILY HISTORY: Significant for sister at the age of 56, history of diabetes. Brother in his 30s from heart disorder. Father of [place] at the age of 49. Mother at the age of 60 of lung cancer, she was a smoker. SOCIAL HISTORY: , lives with and daughter, passive smoking exposure, smokes. No alcohol use, no drug use. REVIEW OF SYMPTOMS: As per HPI. Rest of review of symptoms negative. PHYSICAL EXAMINATION: GENERAL: The patient is of moderate build, not in acute distress. VITAL SIGNS: Temperature 37.1, pulse 119, respiratory rate 18, blood pressure 116/72, oxygen 95% on room air. HEENT: No pallor, no icterus. Pupils equal, round, reactive to light. NECK: No JVD, no neck masses. CARDIOVASCULAR: S1, S2 heard. Tachycardia, irregular rhythm. No murmurs. RESPIRATORY SYSTEM: Normal AP diameter. No accessory muscle use. No wheezing, no crackles. ABDOMEN: Soft, bowel sounds present. Mild abdominal discomfort. No guarding, no rigidity. No distention. CENTRAL NERVOUS SYSTEM: Cranial nerves II-XII grossly intact, nonfocal. EXTREMITIES: No edema, no erythema. LABORATORY DATA: WBC 8.7, hemoglobin 12, hematocrit 36.3, platelets 241. PT 10.6, INR 1, APTT 24.2. Sodium 146, potassium 3.5, chloride 116, CO2 24, BUN 11, creatinine 0.8, serum glucose 143, calcium 8.5, magnesium 2, total bilirubin 0.9, direct bilirubin 0.2, AST 52, ALT 27, alkaline phosphatase 187. Troponin I of 1.87. TSH is 4.2. Urinalysis negative. Chest x-ray, poor inspiratory effort. ASSESSMENT AND PLAN: This is a 74-year-old female who presents with chest pain and found to be in rapid atrial fibrillation and elevation of troponin. 1. Chest pain, non-ST elevated myocardial infarction with troponin elevation, EKG showing atrial fibrillation with a rate of 133. ST depressions in inferior leads. Troponin 1.8. Currently chest pain resolved. We will continue with IV Lopressor p.r.n. and IV heparin low dose. Follow serial cardiac enzymes, echocardiogram, keep her n.p.o., gentle fluids and consult cardiology for further recommendation. Monitor in the telemetry floor. 2. History of atrial fibrillation, not on any medication at home. Rapid atrial fibrillation. IV Lopressor and IV heparin. Anticoagulation as per cardiology. 3. History of stage IV neuroendocrine tumor, carcinoid syndrome with metastatic spread to small bowel mesentery and liver. Follows with hematology/oncology. Currently on lanreotide subcutaneous injections q. monthly. 4. History of asthma, on albuterol p.r.n. 5. Deep venous thrombosis prophylaxis, on IV heparin. DISPOSITION: Closely monitor in the tele floor. Level 1, full code. PT and OT prior to discharge. Expect to discharge home and follow with family doctor. CHAVEZ
[2019-08-26] MEDS: METOPROLOL SUCC 25MG EXT REL TAB PO SCH (09:35)
[2019-08-26] MEDS: SODIUM CHLOR 0.45% + 20MEQ KCL 20 MEQ/1,000 ML BAG IV SCH ×2 (09:35→20:12)
[2019-08-26] MEDS ORDERED: OPTIRAY 320 125ml IV PRN (10:06)
--- NOTE | 2019-08-26 11:10 | CT Scan Report ---
CHEST CTA for PULMONARY ARTERIES CT DOSE: 264.56 mGy.cm HISTORY: PE, R ventricular dysfunction on echo TECHNIQUE: Multiaxial CT images of the chest were performed following the intravenous administration of contrast to evaluate the pulmonary arteries. Maximal intensity projection images were also obtaine d. A dose lowering technique was utilized adhering to the principles of ALARA. COMPARISON STUDY: Chest CT 10/21/2018. FINDINGS: Respiratory motion artifact results in suboptimal evaluation of the bilateral lower lobe pu lmonary arteries. However, no definite filling defects within the pulmonary arteries to suggest pulmo nary embolus. The main pulmonary artery measures up to 3.3 cm in diameter consistent with pulmonary a rterial hypertension. This remains unchanged. The heart remains borderline enlarged. No pleural or pe ricardial effusions. Limited views of the upper abdomen demonstrate normal liver, spleen, adrenal gla nds. Prior cholecystectomy. The ascending thoracic aorta measures up to 4.3 cm in diameter at the lev el the main pulmonary artery. This is similar to the prior study. The heart is borderline enlarged. N o mediastinal or hilar lymphadenopathy. Stable 7 mm chronic focus within the T8 vertebral body. The c entral airways appear patent. No pneumothorax. Stable 4 mm nodule within the left lower lobe on image 93. Faint peripheral groundglass density within the right upper and lower lobes posteriorly. This ma y represent mild dependent change. A mild focus of infectious/inflammatory change could also have a s imilar appearance. Stable 4 mm nodule within the right lower lobe on image 62. Stable 3 mm nodule wit hin the left upper lobe on image 225. IMPRESSION: 1. No evidence for pulmonary embolus with limitations as described above. 2. Stable subcentimeter pulmonary nodules. 3. Mild aneurysmal dilatation of the ascending thoracic aorta measuring up to 4.3 cm in diameter. 4. Faint groundglass density within the periphery of the right upper and lower lobes posteriorly. Thi s favors mild dependent change. A focus of inflammatory/infectious change could also a similar appear ance. ACT 112: Negative or not required by law. Electronically signed by: Raymundo Chambers M.D. 08/26/2019 11:09 AM
--- NOTE | 2019-08-26 12:18 | Ultrasound Report ---
LEFT LOWER EXTREMITY VENOUS DOPPLER HISTORY: left calf pain COMPARISON STUDY: None. FINDINGS: There is normal compressibility, flow, and augmentation within the left lower extremity andra p venous system. A 4.3 x 1.6 x 0.9 cm popliteal cyst. IMPRESSION: No DVT within the left lower extremity. ACT 112: Negative or not required by law. Electronically signed by: Raymundo Chambers M.D. 08/26/2019 12:17 PM
[2019-08-26] MEDS ORDERED: CLOPIDOGREL BISULFATE 300 MG TAB PO STA (12:29)
--- NOTE | 2019-08-26 12:29 | Electrocardiogram Report ---
Test Reason : Blood Pressure : / mmHG Vent. Rate : 133 BPM Atrial Rate : 187 BPM P-R Int : 000 ms QRS Dur : 104 ms QT Int : 330 ms P-R-T Axes : 000 010 189 degrees QTc Int : 491 ms Atrial fibrillation with rapid ventricular response with premature ventricular or aberrantly conducte d complexes Marked ST abnormality, possible inferior subendocardial injury Abnormal ECG Confirmed by Arsalan Huggins ([id number]) on 08/26/2019 12:29:15 PM Referred By: REFERRED SELF Confirmed By:Valerio Huggins
--- NOTE | 2019-08-26 12:32 | Communication Note ---
Date of Service: August 26, 2019 Venous duplex negative for LLE DVT. Will add clopidogrel for antiplatelet therapy given CT. With the patient's consent, I called and spoke to her daughter, Dayan, and updated her regarding the events and test results thus far. The patient tells me that she has had multiple "cardiac catheterizations "but when I spoke to Dayan, she does not believe that the patient has been hospitalized anywhere other than this institution and [place]. There is no evidence of a cardiac catheterization performed at [facility] or [facility] per review of the chart. I do not believe the cardiac catheterizations were being performed at [place] in 2016, and perhaps she is confused in terms of having had past stress tests. Given her aspirin allergy, proceed with clopidogrel monotherapy. Diet advance for now, n.p.o. after midnight pending additional possible procedures, maybe cardiac catheterization tomorrow.
[2019-08-26] MEDS: AMIODARONE 200 MG TAB PO SCH ×2 (13:01→16:25)
[2019-08-26 15:09] LABS: Partial Thromboplastin Ratio 1.4; Partial Thromboplastin Time 39.7 Seconds (21.0-31.0)
[2019-08-26] MEDS ORDERED: HEPARIN IV BOLUS 4,000 UNITS in SYRINGE 0 ML IV ONE (15:30)
[2019-08-26 22:07] LABS: Partial Thromboplastin Ratio 3.4
[2019-08-26 22:46] LABS: Partial Thromboplastin Time 93.8 Seconds (21.0-31.0)
[2019-08-27] MEDS: SODIUM CHLOR 0.45% + 20MEQ KCL 20 MEQ/1,000 ML BAG IV SCH ×2 (05:25→16:53)
[2019-08-27 06:16] LABS: Basophils # (auto) 0.01 K/uL (0-0.2); Basophils % (auto) 0.2 %; Eosinophils # (auto) 0.12 K/uL (0-0.5); Eosinophils % (auto) 2.4 %; Hematocrit (blood only) 29.1 % (37-47); Hemoglobin 9.7 g/dL (12.0-16.0); Immature Granulocytes # (auto) 0.01 K/uL (0.00-0.02); Immature Granulocytes % (auto) 0.2 %; Lymphocytes % (auto) 21.7 %; Mean Corpuscular Hemoglobin 31.9 pg (25-34); Mean Corpuscular Hgb Conc 33.3 g/dL (32-36); Mean Corpuscular Volume 95.7 fL (80-100); Monocytes # (auto) 0.39 K/uL (0.11-0.59); Monocytes % (auto) 7.7 %; Neutrophils # (auto) 3.45 K/uL (1.4-6.5); Neutrophils % (auto) 67.8 %; Platelet Count 177 K/uL (130-400); RDW Coefficient of Variation 14.8 % (11.5-14.5); RDW Standard Deviation 51.6 fL (36.4-46.3); Red Blood Count 3.04 M/uL (4.2-5.4); White Blood Count 5.08 K/uL (4.8-10.8)
[2019-08-27 06:50] LABS: Partial Thromboplastin Time 54.5 Seconds (21.0-31.0)
[2019-08-27 07:01] LABS: BUN Creatinine Ratio 12.3 (10-20); Calcium 8.4 mg/dl (8.5-10.1); Creatinine Clr Calc Pharmacy 54.8 ml/min; Est GFR (African American) 82.9; Est GFR (Non-African American) 71.5
--- NOTE | 2019-08-27 07:56 | Hospitalist Progress Note ---
Date of Service August 27, 2019 Assessment & Plan (1) Atrial fibrillation with rapid ventricular response: (2) Elevated troponin: (3) Chest pain: NSTEMI ruled in Feeling much better today, Cath later today Labs checked ROS-No Headache, No Visual Changes, No Nausea, No Vomiting, No Fever, No Chills, No Neck Pain or Stiffness, No Chest Pain, No Palpitations, No SOB, No ROD, No Cough, No Sputum, No Wheezing, No Abdominal Pain, No Diarrhea, No Hematemesis, No Hemoptysis, No Unexpected Weight Loss, No Flank pain, No Melena, No Hematochezia, No Frequency, No Urgency, No Burning, No Hematuria, No Rashes, No Diaphoresis. Appetite is Normal Physical Exam Gen-AAO x 3, NAD, Afebrile Head-NCAT, EOMI, PERRLA, Anicteric Sclera, No Posterior Pharyngeal Erythema Neck-Supple, No JVD, No Thyromegaly, No Masses, No LAD, No Bruits Lungs-Clear to Auscultation Bilaterally, No Rales, No Rhonchi, No Wheezing, No Crepitus Chest-No S4, +S1, +S2, No S3, No Murmurs, No Rubs, No Gallops, No Ectopy Abdomen-Soft, Bowel Sounds Present, Non Tender, Non Distended, No Hepatomegaly, No Splenomegaly, No Palpable Masses, No Rebound, No Rigidity, No Guarding Musculoskeletal-Full Range of Motion Bilaterally, No CVAT Extremities-No Cyanosis, No Clubbing, No Edema Nuero-Cranial Nerves II-XII grossly intact, Motor WNL, DTRs WNL, Strength WNL, Non Focal Psych-Normal Mood Admission and Anticipated Discharge Date Admission Date: August 26, 2019 Results & Data Results & Data ([facility]) Vital Signs (Past 12 Hours) Vital Signs Temp Pulse Pulse Resp BP BP Pulse Ox 08/27/19 07:11 48 L 08/27/19 06:48 37.0 C 53 L 18 135/76 97 08/27/19 02:54 36.7 C 51 L 19 136/76 99 08/26/19 23:52 37.0 C 51 L 18 114/69 96 08/26/19 20:16 36.8 C 54 L 17 122/66 100 (1) Chest pain Chest pain type: unspecified Qualified Code(s): R07.9 - Chest pain, unspecified
[2019-08-27] MEDS: AMIODARONE 200 MG TAB PO SCH ×3 (08:29→16:55)
[2019-08-27] MEDS: CLOPIDOGREL BISULFATE 75 MG TAB PO SCH (08:29)
[2019-08-27] MEDS: CHOLECALCIFEROL 1,000 UNITS 25 MCG TAB PO SCH (08:29)
[2019-08-27] MEDS: METOPROLOL SUCC 25MG EXT REL TAB PO SCH (08:31)
[2019-08-27] MEDS: HEPARIN SODIUM/DEXTROSE 25,000 UNITS/500 ML BAG IV SCH (08:35)
--- NOTE | 2019-08-27 09:42 | Electrocardiogram Report ---
Test Reason : Blood Pressure : / mmHG Vent. Rate : 055 BPM Atrial Rate : 055 BPM P-R Int : 164 ms QRS Dur : 100 ms QT Int : 510 ms P-R-T Axes : 086 014 011 degrees QTc Int : 487 ms Sinus bradycardia Nonspecific ST abnormality Abnormal ECG When compared with ECG of 26-AUG-2019 09:28, Nonspecific T wave abnormality no longer evident in Lateral leads QT has lengthened Confirmed by Darion Loza ([id number]) on 08/27/2019 9:41:33 AM Referred By: REFERRED SELF Confirmed By:Darion Loza
--- NOTE | 2019-08-27 10:09 | Cardiology Progress Note ---
Date of Service August 27, 2019 Assessment & Plan (1) NSTEMI (non-ST elevated myocardial infarction): (1) NSTEMI (non-ST elevated myocardial infarction): The patient typically follows with [facility] cardiology. She describes having "multiple "cardiac catheterization procedures. On further investigation I found the report / images of a cardiac catheterization performed at [facility] on 12/05/[address] Casiano via the right radial approach with angiographically normal coronaries noted at that time. Cardiac catheterization was performed for chest pain, NSTEMI, Trop 1 , anterolateral ST depression noted on EKG at that time. Differential diagnosis of her event at that time included possible vasospasm. Her carcinoid was diagnosed at around the same time. Will add amlodipine for vasospasm. Spasm / tachycardia may be a manifestation of her carcinoid for which she is already on treatment. This presentation was for subjective chest pain, abrupt onset at rest, with findings of wide complex tachycardia, then AF RVR after IV amiodarone with conrado re ST depression in the lateral leads. ST depression resolved with resolution of the tachycardia. Troponin peaked at 3.56 yesterday, now to 1.6 this am. (2) Sustained ventricular tachycardia: Prehospital EKG is concerning for wide complex tachycardia at 235 bpm, either VT or supraventricular with aberrant conduction. LVEF is normal. Started metoprolol 25 mg daily, amiodarone 200 mg 3 times daily with meals. (3) Paroxysmal atrial fibrillation with rapid ventricular response: Metoprolol plus amiodarone as noted above. Stroke prophylaxis: Xarelto DC'd in after a fall with head trauma. Likely needs to resume DOAC. Await cath results. (4) Metastatic carcinoid tumor: Recent PET scan results as noted in HPI. She has been receiving treatment for this, having previously been followed by Dr. Darrick Escalera, as well as hematology oncology at [facility]. (5) Hypernatremia: This appears to be a chronic finding, sodium levels in the range of 144 to 145 mmol/L on recent outpatient chemistry panels. Given concerns of volume depletion, will proceed with one half normal saline. (6) Thoracic ascending aortic aneurysm: 4.5 cm ascending thoracic aortic aneurysm noted on recent PET/CT on 08/23/2019, 4.[address] performed today. Continue to follow. Subjective Patient seen in follow up. No complaints. No chest pain. No arrhythmias on telemetry overnight. Review of Systems Review of Systems: All systems reviewed & are unremarkable except as noted in HPI & below Physical Exam Physical Exam: Temp Pulse Resp BP Pulse Ox 37.0 C 58 L 18 135/76 97 08/27/19 06:48 08/27/19 08:32 08/27/19 06:48 08/27/19 06:48 08/27/19 06:48 Constitutional: WD/WN, vitals as above Respiratory: normal respiratory effort, lungs clear to auscultation Cardiovascular: RRR, no murmur, no edema Gastrointestinal (Abdomen): normal bowel sounds, soft, nontender, no hepatosplenomegaly Neurologic: PERRL, EOMI, accommodation nl, no face palsy, no dysarthria Results & Data Vital Signs (Past 12 Hours) Vital Signs Temp Pulse Pulse Pulse Resp BP BP 08/27/19 08:32 58 L 08/27/19 07:11 48 L 08/27/19 06:48 37.0 C 53 L 18 135/76 08/27/19 02:54 36.7 C 51 L 19 136/76 08/26/19 23:52 37.0 C 51 L 18 114/69 Pulse Ox 08/27/19 08:32 08/27/19 07:11 08/27/19 06:48 97 08/27/19 02:54 99 08/26/19 23:52 96 Laboratory Results Cardiac Enzymes 08/26/19 08/27/19 Range/Units 12:43 05:48 Troponin I 3.400 H* 1.610 H* (0-0.045) ng/ml Coagulation 08/26/19 08/26/19 08/27/19 Range/Units 14:47 21:32 05:48 APTT 39.7 H 93.8 H* 54.5 H* (21.0-31.0) Seconds CBC 08/27/19 Range/Units 05:48 WBC 5.08 (4.8-10.8) K/uL RBC 3.04 L (4.2-5.4) M/uL Hgb 9.7 L (12.0-16.0) g/dL Hct 29.1 L (37-47) % Plt Count 177 (130-400) K/uL Neut # (Auto) 3.45 (1.4-6.5) K/uL Lymph # (Auto) 1.10 L (1.2-3.4) K/uL [place] # (Auto) 0.39 (0.11-0.59) K/uL Eos # (Auto) 0.12 (0-0.5) K/uL Baso # (Auto) 0.01 (0-0.2) K/uL Comprehensive Metabolic Panel 08/27/19 Range/Units 05:48 Sodium 143 (136-145) mmol/L Potassium 4.0 (3.5-5.1) mmol/L Chloride 113 H (98-107) mmol/L Carbon Dioxide 23 (21-32) mmol/L BUN 10 (7-18) mg/dl Creatinine 0.81 (0.6-1.2) mg/dl Glucose 114 H (70-99) mg/dl Calcium 8.4 L (8.5-10.1) mg/dl Intake and Output 08/26/19 08/27/19 08/27/19 22:59 06:59 14:59 Intake Total 1816.267 / 3030.067 1021.300 / 3030.067 36.000 / 36.000 Output Total 900 / 2501 1300 / 2501 Balance 916.267 / 529.067 -278.700 / 529.067 36.000 / 36.000 Intake: IV 1226.267 / 2390.067 1021.300 / 2390.067 36.000 / 36.000 HEPARIN SODIUM/DEXTROSE 25,000 226.267 / 325.900 99.633 / 325.900 36.000 / 36.000 units In 500 ml @ 700 UNITS/HR 14 mls/hr IV .Q24H [facility] Rx#: [id number] 1/2 NSS + 20MEQ KCL 1000ML 20 1000 / 1921.667 921.667 / 1921.667 meq In 1,000 ml @ 100 mls/hr IV .Q10H [facility] Rx#:[id number] Oral 590 / 640 Output: Urine 900 / 2500 1300 / 2500 Other: Other Intake Source sips NPO @#0000 Weight 65.4 kg Medications Administered Current Inpatient Medications Acetaminophen (Tylenol) 650 mg PO Q4H PRN PRN Reason: Pain or Fever Stop: 09/25/19 06:47 Albuterol (Ventolin Hfa) 2 puffs INH Q6H PRN PRN Reason: Shortness Of Breath Or Wheezing Stop: 09/25/19 07:06 Amiodarone HCl (Cordarone) 200 mg PO TIDM [facility] Stop: 09/25/19 11:59 Last Admin: 08/27/19 08:29 Dose: 200 mg Documented by: Amlodipine Besylate (Norvasc) 2.5 mg PO [facility] Stop: 09/26/19 09:59 Clopidogrel Bisulfate (Plavix) 75 mg PO [facility] Stop: 09/26/19 08:59 Last Admin: 08/27/19 08:29 Dose: 75 mg Documented by: Potassium Chloride/Sodium Chloride (1/2 Nss + 20meq Kcl 1000ml) 20 meq in 1,000 mls @ 100 mls/hr IV .Q10H [facility] Stop: 09/25/19 08:59 Last Admin: 08/27/19 05:25 Dose: 100 mls/hr Documented by: Ioversol (Optiray 320 125ml) 118 ml IV ONCE PRN PRN Reason: Interaction Checking Stop: 08/30/19 10:05 Last Admin: 08/26/19 10:06 Dose: 118 ml Documented by: Metoprolol Succinate (Toprol Xl) 25 mg PO [facility] Stop: 09/25/19 09:14 Last Admin: 08/27/19 08:31 Dose: Not Given Documented by: Metoprolol Tartrate (Lopressor) 2.5 mg IV Q4 PRN PRN Reason: Tachycardia Stop: 09/25/19 05:47 Nitroglycerin (Nitrostat) 0.4 mg SL UD PRN PRN Reason: Chest Pain Stop: 09/25/19 06:47 Polyethylene Glycol (Miralax Powder Packet) 17 gm PO DAILY PRN PRN Reason: Constipation Stop: 09/25/19 06:47 Vitamin D (Vitamin D3) 2,000 units PO [facility] Stop: 09/25/19 08:59 Last Admin: 08/27/19 08:29 Dose: 2,000 units Documented by:
--- NOTE | 2019-08-27 10:27 | Communication Note ---
Date of Service: August 27, 2019 I spoke to patient's daughter ,Dayan, by phone about updates and plan for cardiac catheterization.
[2019-08-27] MEDS: AMLODIPINE BESYLATE 5 MG TAB PO SCH (11:17)
[2019-08-27] MEDS ORDERED: fentaNYL citrate 100 MCG/2 ML VIAL ONE (14:54)
[2019-08-27] MEDS ORDERED: NiCARDipine HCL INJ 2.5 MG/ML 10 ML AMP ONE (14:54)
[2019-08-27] MEDS ORDERED: MIDAZOLAM HCL 1 MG/ML 2ML VIAL ONE (14:54)
[2019-08-27] MEDS ORDERED: HEPARIN (PORCINE) 1000 UNIT/ML 10 ML (CATH LAB USE ONLY) ONE (14:54)
[2019-08-27] MEDS ORDERED: NITROGLYCERIN/D5W 100MCG/ML 20ML SYR ONE (14:55)
--- NOTE | 2019-08-27 15:45 | Pre Anesthesia Assessment ---
Date of Service August 27, 2019 Pre Sedation Assessment Vital Signs Temp Pulse Pulse Pulse Resp BP BP 08/27/19 14:36 64 16 172/91 H 08/27/19 11:26 98.4 F 53 L 17 148/75 H 08/27/19 08:32 58 L 08/27/19 07:11 48 L 08/27/19 06:48 98.6 F 53 L 18 135/76 08/27/19 02:54 98.1 F 51 L 19 136/76 08/26/19 23:52 98.6 F 51 L 18 114/69 08/26/19 20:16 98.2 F 54 L 17 122/66 08/26/19 16:26 66 08/26/19 15:46 98.8 F 51 L 17 127/75 Pulse Ox 08/27/19 14:36 99 08/27/19 11:26 95 08/27/19 08:32 08/27/19 07:11 08/27/19 06:48 97 08/27/19 02:54 99 08/26/19 23:52 96 08/26/19 20:16 100 08/26/19 16:26 08/26/19 15:46 94 Cardiovascular RRR, no murmur, no edema Respiratory normal respiratory effort, lungs clear to auscultation Pre-Sedation Airway Assessment Smoking Status: Never smoker Short, Thick Neck: No Oral Cavity: + Dentures Mallampati Class: III ASA: ASA3 NPO Status Date of Last Intake of Fluids: 08/26/19 Time of Last Intake of Fluids: 18:00 Date of Last Intake of Solid Food: 08/26/19 Time of Last Intake of Solid Foods: 18:00 Procedure Planning Contraindications for Sedation: none Current Medications Reviewed: Yes Notes The planned sedation has been discussed with the patient. Informed Consent was obtained. I have identified the patient, determined the appropriateness of sedation and have assessed the patient immediately prior to the procedure. All medicine(s) and interventions are by my order.
--- NOTE | 2019-08-27 15:46 | Post Anesthesia Assessment ---
Date of Service August 27, 2019 Post Sedation Assessment Vital Signs Temp Pulse Pulse Pulse Resp BP BP 08/27/19 14:36 64 16 172/91 H 08/27/19 11:26 98.4 F 53 L 17 148/75 H 08/27/19 08:32 58 L 08/27/19 07:11 48 L 08/27/19 06:48 98.6 F 53 L 18 135/76 08/27/19 02:54 98.1 F 51 L 19 136/76 08/26/19 23:52 98.6 F 51 L 18 114/69 08/26/19 20:16 98.2 F 54 L 17 122/66 08/26/19 16:26 66 08/26/19 15:46 98.8 F 51 L 17 127/75 Pulse Ox 08/27/19 14:36 99 08/27/19 11:26 95 08/27/19 08:32 08/27/19 07:11 08/27/19 06:48 97 08/27/19 02:54 99 08/26/19 23:52 96 08/26/19 20:16 100 08/26/19 16:26 08/26/19 15:46 94 Recovery Score Activity: Moves 4 extremities Respiration: Deep Breath/Cough Circulation: +/-20% PreAnes Value Consciousness: Fully Awake Oxygen Saturation: O2 needed for >90% Discharge Sedation Level of Care: Fast Track Phase II Post Sedation Plan On clinical assessment, the patient appears to have tolerated the sedation without complications. Patient is recovering as anticipated. Patient will continue to be monitored by nursing and may be discharged when sedation discharge criteria are met per below protocol. Upon Completions of procedure up to 15 minutes continue every 5 minute vital signs and the P.A.R. score; then discharge to a Phase I or Fast Track to Phase II per the following guidelines: * Discharge Patient to appropriate Phase II area if PAR is 8 or greater or return to pre- procedure baseline. The post - procedure orders will be as directed. * If PAR score is less than 8 or not return to pre-procedure baseline then patient will follow Phase I monitoring till PAR is reached for Phase II. The Phase I may be done in procedure room or may call to secure a Phase I area. * If naloxone or flumazenil are used for reversal, hold in Phase I for continued monitoring from when last reversal dose was given for a minimum of 60 minutes or longer pending the nurse and/or physician discretion of patient condition before discharge to Phase II. Please call the Sedation Physician to re-evaluate and complete post-note for discharge to Phase II area. Do NOT discharge from procedure sedation or Phase 1 until post- sedation evaluation note is complete by procedure /sedation MD Sedation Discharge Instructions to be given to the patient at discharge to home.
--- NOTE | 2019-08-27 15:54 | Cardiac Catheterization ---
[facility] Data: Experience Planning Strategist Cardiac Status Clinical evaluation leading to the procedure CAD Presenation: Non STEMI Anginal Classification: CCS III Heart Failure: No Cardiogenic Shock within 24 Hours: No Cardiac Arrest within 24 Hours: No Imaging Studies Past 6 Months: Yes Stress Studies Past 6 Months: No Diagnostic Physicians Name: Arsalan Rust MD Status: Elective Closure Device Percutaneous Entry Location: Radial Closure Device: Radial Band Recommendations: Medical Therapy and/or Counseling Intraprocedure Events Significant Disection: No Perforation: No Cardiac Cath Procedure Full Procedure Date August 27, 2019 Pre-Procedure Diagnosis Pre-Procedure Diagnosis: Non STEMI AUC Score AUC Score: 7 Post-Procedure Diagnosis Post-Procedure Diagnosis: Normal Coronary Arteries and Normal Intracardiac Pressures Procedure(s) Performed Procedure(s) Performed: Coronary Angiography and Left Heart Cath Multimedia Author Arsalan Rust MD Wool Buyer(s) Julio Estimated Blood Loss Estimated Blood Loss: 5 Medication(s) Medication(s): Heparin, Lidocaine 1%, Nicardipine and Nitroglycerin Summary of Findings Indication: Sustained ventricular tachycardia, elevated troponin Access: 6 Fr slender right radial artery under ultrasound guidance Catheters: Clayton Findings: LM -angiographically normal LAD -medium caliber vessel, mid segment luminal irregularities, small distal LAD as wraps around apex with 40 to 50% focal stenosis. Large first diagonal with 20% ostial stenosis Circumflex -large caliber, codominant, angiographically normal RCA -medium caliber, codominant, angiographically normal. Very small right PDA without significant disease LVEDP -9 Arterial Closure: TR band Summary: 1. Mild nonobstructive coronary artery disease -40% small apical LAD, 20% ostial first diagonal 2. Normal intracardiac filling pressure Recommendations: Continued ASCVD risk factor modification per Dr. Morocho Hemodynamics Rest Ao:: 173/84/125 Final Ao: 201/86/130 LV: 157/9 Recommendations Recommendations: Medical Therapy and/or Counseling Specimens Specimens: None Radiation Exposure (mGy) 394 Contrast (mls) 30 Fluids (cc crystalloids) Fluids (cc crystalloids): 50 Drains Drains: None Anesthesia Moderate Procedural Complication(s) None Disposition PCU I attest to the content of the Intraoperative Record and any orders documented therein. Any exceptions are noted below. Root4G Card Cath Procedure Codes Cardiac Catheterization Procedure 1: Cardiovascular Cath Procedures: 50432 Coronaries and LHC (+/-LV) Moderate Sedation Procedure 1: Sedation/Anesthesia: 75922 Mod Sedation by the same physician;Init15 Min Child Age 5 & Up PG Care Time/CCT Total # of Minutes Spent Total Time Spent with Patient: Total time spent is greater than 50% in coordination of care (as documented) at patient's floor/unit and/or counseling patient:
[2019-08-27] MEDS ORDERED: SODIUM CHLORIDE 0.9% 1000ML 1,000 ML IV SCH (16:00)
--- NOTE | 2019-08-27 17:03 | Communication Note ---
Date of Service: August 27, 2019 Normal coronaries. I have left a message with [place] [facility] to provide update and expect a call back. Will likely need anticoagulation for AF, however, will hold off for tonight and allow her to recover from cath , especially until need for further procedures delineated this hospital stay.
--- NOTE | 2019-08-27 17:48 | Communication Note ---
Date of Service: August 27, 2019 I called pt's daughter, Dayan, and went over the catheterization results.
[2019-08-27] MEDS ORDERED: HydrALAZINE HCL 20 MG/ML VIAL IV PRN (17:51)
[2019-08-27] MEDS ORDERED: HydrALAZINE HCL 20 MG/ML VIAL IV ONE (17:51)
[2019-08-27] MEDS: ACETAMINOPHEN 325 MG TAB PO PRN (21:34)
[2019-08-28] MEDS: SODIUM CHLOR 0.45% + 20MEQ KCL 20 MEQ/1,000 ML BAG IV SCH ×2 (02:09→12:00)
[2019-08-28 06:40] LABS: Hematocrit (blood only) 30.2 % (37-47); Mean Corpuscular Hemoglobin 31.4 pg (25-34); Mean Corpuscular Hgb Conc 33.1 g/dL (32-36); Mean Platelet Volume 9.8 fL (7.4-10.4); Platelet Count 190 K/uL (130-400); RDW Coefficient of Variation 14.4 % (11.5-14.5); RDW Standard Deviation 49.6 fL (36.4-46.3); Red Blood Count 3.18 M/uL (4.2-5.4); White Blood Count 4.66 K/uL (4.8-10.8)
[2019-08-28 07:14] LABS: BUN Creatinine Ratio 11.7 (10-20); Calcium 8.3 mg/dl (8.5-10.1); Est GFR (African American) 76.1; Est GFR (Non-African American) 65.6
[2019-08-28] MEDS: AMIODARONE 200 MG TAB PO SCH ×3 (08:08→17:47)
[2019-08-28] MEDS: AMLODIPINE BESYLATE 5 MG TAB PO SCH (08:09)
[2019-08-28] MEDS: CHOLECALCIFEROL 1,000 UNITS 25 MCG TAB PO SCH (08:09)
[2019-08-28] MEDS: METOPROLOL SUCC 25MG EXT REL TAB PO SCH (08:09)
[2019-08-28] MEDS: CLOPIDOGREL BISULFATE 75 MG TAB PO SCH (08:09)
--- NOTE | 2019-08-28 08:37 | Electrocardiogram Report ---
Test Reason : Blood Pressure : / mmHG Vent. Rate : 049 BPM Atrial Rate : 049 BPM P-R Int : 146 ms QRS Dur : 102 ms QT Int : 532 ms P-R-T Axes : 080 003 015 degrees QTc Int : 480 ms Sinus bradycardia Nonspecific ST abnormality Abnormal ECG When compared with ECG of 27-AUG-2019 06:31, Nonspecific ST abnormality no longer present Confirmed by Darion Loza ([id number]) on 08/28/2019 8:37:29 AM Referred By: REFERRED SELF Confirmed By:Darion Loza
--- NOTE | 2019-08-28 09:50 | Hospitalist Progress Note ---
Date of Service August 28, 2019 Assessment & Plan (1) Atrial fibrillation with rapid ventricular response: (2) Elevated troponin: (3) Chest pain: (4) Thoracic ascending aortic aneurysm: (5) Hypernatremia: (6) Carcinoid tumor of abdomen: (7) Hypertension: (8) Coronary vasospasm: (9) Hyperlipidemia: (10) Osteoarthritis: NSTEMI Cath revealed no target lesions Feeling much better, await further Cardio input Currently SB in the 50s, On Metoprolol 25 qam Labs checked ROS-No Headache, No Visual Changes, No Nausea, No Vomiting, No Fever, No Chills, No Neck Pain or Stiffness, No Chest Pain, No Palpitations, No SOB, No ROD, No Cough, No Sputum, No Wheezing, No Abdominal Pain, No Diarrhea, No Hematemesis, No Hemoptysis, No Unexpected Weight Loss, No Flank pain, No Melena, No Hematochezia, No Frequency, No Urgency, No Burning, No Hematuria, No Rashes, No Diaphoresis. Appetite is Normal Physical Exam Gen-AAO x 3, NAD, Afebrile Head-NCAT, EOMI, PERRLA, Anicteric Sclera, No Posterior Pharyngeal Erythema Neck-Supple, No JVD, No Thyromegaly, No Masses, No LAD, No Bruits Lungs-Clear to Auscultation Bilaterally, No Rales, No Rhonchi, No Wheezing, No Crepitus Chest-No S4, +S1, +S2, No S3, No Murmurs, No Rubs, No Gallops, No Ectopy Abdomen-Soft, Bowel Sounds Present, Non Tender, Non Distended, No Hepatomegaly, No Splenomegaly, No Palpable Masses, No Rebound, No Rigidity, No Guarding Musculoskeletal-Full Range of Motion Bilaterally, No CVAT Extremities-No Cyanosis, No Clubbing, No Edema Nuero-Cranial Nerves II-XII grossly intact, Motor WNL, DTRs WNL, Strength WNL, Non Focal Psych-Normal Mood Admission and Anticipated Discharge Date Admission Date: August 26, 2019 Results & Data Results & Data ([facility]) Vital Signs (Past 12 Hours) Vital Signs Temp Pulse Pulse Resp BP Pulse Ox 08/28/19 07:59 36.9 C 56 L 18 137/73 96 08/28/19 07:30 48 L 08/28/19 03:26 36.6 C 50 L 19 132/70 98 08/27/19 22:58 36.8 C 58 L 18 143/75 H 95 (1) Chest pain Chest pain type: unspecified Qualified Code(s): R07.9 - Chest pain, unspecified
--- NOTE | 2019-08-28 14:26 | Cardiology Progress Note ---
Date of Service August 28, 2019 Assessment & Plan (1) NSTEMI (non-ST elevated myocardial infarction): Angiographically normal coronaries demonstrated on 08/27/2019. The patient's event not due to an acute intracoronary plaque rupture. We will discontinue clopidogrel. Other considerations include vasospasm, or more likely her symptoms of chest discomfort and ischemic EKG changes due to excessively elevated heart rates. Wide-complex tachycardia noted on presentation of EMS, and her symptoms have been present for well over 2 hours by the time they arrived. Clinical case, and EKG tracings were reviewed with Dr Velazquez of EP. When taking the baseline EKG into account, supraventricular etiology with aberrant conduction is also a consideration as well as ventricular arrhythmia. On further questioning, the patient has had loss of consciousness episodes, but they are typically associated with when she is having bowel movements and has a sudden onset of flushing. Her left ventricular ejection fraction is normal. At this time we will proceed with ongoing medication therapy including me toprolol, amiodarone, will proceed with implantable loop recorder tomorrow. (2) Paroxysmal atrial fibrillation with rapid ventricular response: Rhythm control with metoprolol, amiodarone. Although patient does have metastatic disease to the liver, her liver function tests are normal, and given the significance of her symptoms, I feel the benefits amiodarone outweigh the risks at present. 5 HIAA urine study has been requested. I sent a secure provider to provider electronic message in the patient's [employer] chart to her hematology oncology [place] [facility] [place] updates in her cardiac status. (3) Thoracic ascending aortic aneurysm: 4.5 cm thoracic aortic aneurysm noted on recent PET scan. Observation recommended. Subjective Patient seen in follow-up. No events overnight. Physical Exam Physical Exam: Temp Pulse Resp BP Pulse Ox 36.5 C 60 16 139/68 98 08/28/19 11:41 08/28/19 11:41 08/28/19 11:41 08/28/19 11:41 08/28/19 11:41 Constitutional: WD/WN, vitals as above Respiratory: normal respiratory effort, lungs clear to auscultation Cardiovascular: RRR, no murmur, no edema Right radial access site clean dry and intact, no hematoma Gastrointestinal (Abdomen): normal bowel sounds, soft, nontender, no hepatosplenomegaly Neurologic: PERRL, EOMI, accommodation nl, no face palsy, no dysarthria Results & Data Vital Signs (Past 12 Hours) Vital Signs Temp Pulse Pulse Resp BP Pulse Ox 08/28/19 11:41 36.5 C 60 16 139/68 98 08/28/19 07:59 36.9 C 56 L 18 137/73 96 08/28/19 07:30 48 L 08/28/19 03:26 36.6 C 50 L 19 132/70 98 Laboratory Results Cardiac Enzymes 08/27/19 Range/Units 19:33 Troponin I 1.380 H* (0-0.045) ng/ml CBC 08/26/19 08/26/19 08/28/19 Range/Units 03:08 04:39 06:24 WBC 8.70 4.66 L (4.8-10.8) K/uL RBC 3.18 L (4.2-5.4) M/uL Hgb 12.0 10.0 L (12.0-16.0) g/dL Hct 30.2 L (37-47) % Plt Count 241 190 (130-400) K/uL Neut # (Auto) (1.4-6.5) K/uL Lymph # (Auto) (1.2-3.4) K/uL [place] # (Auto) (0.11-0.59) K/uL Eos # (Auto) (0-0.5) K/uL Baso # (Auto) (0-0.2) K/uL Comprehensive Metabolic Panel 08/28/19 Range/Units 06:24 Sodium 142 (136-145) mmol/L Potassium 4.0 (3.5-5.1) mmol/L Chloride 112 H (98-107) mmol/L Carbon Dioxide 26 (21-32) mmol/L BUN 10 (7-18) mg/dl Creatinine 0.87 (0.6-1.2) mg/dl Glucose 105 H (70-99) mg/dl Calcium 8.3 L (8.5-10.1) mg/dl Intake and Output 08/27/19 08/28/19 08/28/19 22:59 06:59 14:59 Intake Total 1640 / 3002.667 1326.667 / 3002.667 985 / 985 Output Total 1601 / 3701 1300 / 3701 200 / 200 Balance 39 / -698.333 26.667 / -698.333 785 / 785 Intake: IV 1000 / 1962.667 926.667 / 1962.667 985 / 985 1/2 NSS + 20MEQ KCL 1000ML 20 1000 / 1926.667 926.667 / 1926.667 985 / 985 meq In 1,000 ml @ 100 mls/hr IV .Q10H [facility] Rx#:[id number] Oral 640 / 1040 400 / 1040 Output: Urine 1600 / 3700 1300 / 3700 200 / 200 # Bowel Movements Other: Weight 63.8 kg
[2019-08-28] MEDS ORDERED: APIXABAN 5 MG TABLET PO ONE (21:00)
[2019-08-29 07:14] LABS: Hematocrit (blood only) 32.6 % (37-47); Hemoglobin 10.7 g/dL (12.0-16.0); Mean Corpuscular Hemoglobin 31.7 pg (25-34); Mean Corpuscular Hgb Conc 32.8 g/dL (32-36); Mean Corpuscular Volume 96.4 fL (80-100); Platelet Count 226 K/uL (130-400); RDW Coefficient of Variation 14.3 % (11.5-14.5); RDW Standard Deviation 49.9 fL (36.4-46.3); Red Blood Count 3.38 M/uL (4.2-5.4); White Blood Count 4.75 K/uL (4.8-10.8)
[2019-08-29 07:46] LABS: BUN Creatinine Ratio 11.9 (10-20); Calcium 8.7 mg/dl (8.5-10.1); Creatinine Clr Calc Pharmacy 45.3 ml/min; Est GFR (African American) 65.9; Est GFR (Non-African American) 56.8; Potassium 3.9 mmol/L (3.5-5.1)
[2019-08-29] MEDS: METOPROLOL SUCC 25MG EXT REL TAB PO SCH (08:09)
[2019-08-29] MEDS: CHOLECALCIFEROL 1,000 UNITS 25 MCG TAB PO SCH (08:09)
[2019-08-29] MEDS: AMLODIPINE BESYLATE 5 MG TAB PO SCH (08:09)
[2019-08-29] MEDS: AMIODARONE 200 MG TAB PO SCH ×3 (08:09→18:36)
[2019-08-29] MEDS: ACETAMINOPHEN 325 MG TAB PO PRN ×2 (08:34→20:06)
--- NOTE | 2019-08-29 11:07 | Cardiology Progress Note ---
Date of Service August 29, 2019 Assessment & Plan (1) Wide-complex tachycardia: Patient presented with chest pain, wide-complex tachycardia, 235 bpm noted EMS EKG, either ventricular tachycardia or supraventricular tachycardia with aberrant conduction Paroxysmal atrial fibrillation Non-ST segment elevation myocardial infarction, coronaries on cardiac catheterization, elevation in troponin and symptoms likely due to tachycardia with very fast rate Thoracic aortic aneurysm, 4.5 cm on recent outpatient PET scan, 0.[address] the chest performed during this hospital stay Underlying carcinoid tumor with hepatic metastatic disease Discussion/plan: In terms of risk stratification for sudden cardiac , the patient's ejection fraction is normal. Although she does endorse episodes of transient loss of consciousness, these have typically occurred in the setting of straining while having bowel movements on the commode. Her symptom onset was over 2 hours prior to the presentation of EMS when the wide-complex tachycardia was recorded, she did not present with syncope this admission. My initial impression is that her risk of sudden cardiac related to her tachycardia is low. Plan is for the patient to undergo implantable loop recorder today , for further evaluation to determine frequency of tachycardia episodes, response to treatment, to determine if she has associated symptoms moving forward. Continue metoprolol and oral amiodarone. In terms of stroke prophylaxis in the setting of paroxysmal atrial fibrillation, will resume Eliquis post procedure today. I favor this agent over the Xarelto which she had been on previously. Her thoracic aortic aneurysm will be followed as an outpatient, likely with repeat imaging at a six-month interval. I left a message with her oncologist at [facility], and anticipate upcoming discussion regarding cardiac updates. 24 hour urine for 5-HIAA collected. Subjective Patient seen in cardiology follow-up. Telemetry reveals stable sinus bradycardia in the upper 40s to mid 50 bpm range at rest. Denies any chest discomfort, shortness of breath, palpitations, lightheadedness or dizziness. Review of Systems Review of Systems: All systems reviewed & are unremarkable except as noted in HPI & below Physical Exam Physical Exam: Temp Pulse Resp BP Pulse Ox 36.8 C 50 L 17 120/68 99 08/29/19 07:50 08/29/19 08:00 08/29/19 07:50 08/29/19 07:50 08/29/19 07:50 Constitutional: WD/WN, vitals as above Respiratory: normal respiratory effort, lungs clear to auscultation Cardiovascular: Rate/Rhythm: regular rate and + bradycardic Heart Sounds: no murmur Extremities: no edema Gastrointestinal (Abdomen): normal bowel sounds, soft, nontender, no hepatosplenomegaly Neurologic: PERRL, EOMI, accommodation nl, no face palsy, no dysarthria Results & Data Vital Signs (Past 12 Hours) Vital Signs Temp Pulse Pulse Resp BP Pulse Ox 08/29/19 08:00 50 L 08/29/19 07:50 36.8 C 51 L 17 120/68 99 08/29/19 03:48 36.5 C 57 L 16 126/69 97 08/28/19 23:08 36.9 C 55 L 16 114/66 97 Laboratory Results CBC 08/29/19 Range/Units 06:53 WBC 4.75 L (4.8-10.8) K/uL RBC 3.38 L (4.2-5.4) M/uL Hgb 10.7 L (12.0-16.0) g/dL Hct 32.6 L (37-47) % Plt Count 226 (130-400) K/uL Comprehensive Metabolic Panel 08/29/19 Range/Units 06:53 Sodium 141 (136-145) mmol/L Potassium 3.9 (3.5-5.1) mmol/L Chloride 110 H (98-107) mmol/L Carbon Dioxide 28 (21-32) mmol/L BUN 12 (7-18) mg/dl Creatinine 0.98 (0.6-1.2) mg/dl Glucose 110 H (70-99) mg/dl Calcium 8.7 (8.5-10.1) mg/dl Intake and Output 08/28/19 08/29/19 08/29/19 22:59 06:59 14:59 Intake Total 480 / 1960 Output Total 1500 / 2200 500 / 2200 Balance -1020 / -240 -500 / -240 Intake: Oral 480 / 720 Output: Urine 1500 / 2200 500 / 2200 Other: Weight 63 kg
--- NOTE | 2019-08-29 15:40 | History & Physical Bridge Note ---
Date of Service August 29, 2019 History & Physical Bridge Note I have examined the patient, reviewed the History & Physical and in the interval since the performance of the History & Physical I have noted the following changes of clinical significance: pt with WCT normal coronaries and preserved EF; with some history of syncope. Recommend LINQ insertion.
[2019-08-29] MEDS ORDERED: CEFAZOLIN 250 MG/ML 1 GM VIAL ONE (16:06)
--- NOTE | 2019-08-29 16:21 | Operative Report ---
Post Operative Report Pre & Post Diagnosis Syncope and WCT Operation Date: 08/27/19 13:30 <No data on this case meets the specified criteria> Operation Date: 08/29/19 15:45 <No data on this case meets the specified criteria> I identified the patient and participated in the time-out.: Yes Procedure Operation Date: 08/27/19 13:30 Actual Procedures p Cath, Left with Cors and Vent - Reynaldo Rust MD s Cineradiography w/Routine Exam - Reynaldo Rust MD Operation Date: 08/29/19 15:45 Actual Procedures p Cardiac Event Recorder Implant (LOOP) - Criselda Velazquez DO Surgeon Criselda Velazquez DO Street Photographer none Estimated Blood Loss 1 Findings Consistent with Post-Op Diagnosis Specimens none Description of Procedure see official report I attest to the content of the Intraoperative Record and any orders documented therein. Any exceptions are noted below.
[2019-08-29] MEDS: APIXABAN 5 MG TABLET PO SCH (20:07)
--- NOTE | 2019-08-30 | Hospitalist Progress Note ---
Date of Service August 29, 2019 Assessment & Plan (1) Atrial fibrillation with rapid ventricular response: (2) Elevated troponin: (3) Chest pain: NSTEMI ruled in cardiac cath on August 26, no target lesions, clean coronary arteries Wide-complex tachycardia Patient presented with chest pain, wide-complex tachycardia, 235 bpm noted EMS EKG, either ventricular tachycardia or supraventricular tachycardia with aberrant conduction Paroxysmal atrial fibrillation Non-ST segment elevation myocardial infarction, coronaries on cardiac catheterization, elevation in troponin and symptoms likely due to tachycardia with very fast rate Cardiology consulted, per their impression her risk of sudden cardiac related to her tachycardia is low. Now s/p implantable loop recorder today (08/29/2019) , for further evaluation to determine frequency of tachycardia episodes, response to treatment, to determine if she has associated symptoms moving forward. Continue metoprolol and oral amiodarone. In terms of stroke prophylaxis in the setting of paroxysmal atrial fibrillation, will resume Eliquis post procedure today. (4) Thoracic ascending aortic aneurysm: Thoracic aortic aneurysm, 4.5 cm on recent outpatient PET scan, 0.[address] the chest performed during this hospital stay Her thoracic aortic aneurysm will be followed as an outpatient, likely with repeat imaging at a six-month interval. 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 24 hour urine for 5-HIAA collected. (7) Hypertension: BP currently at goal Cardiology following Continue to monitor (8) Coronary vasospasm: (9) Hyperlipidemia: (10) Osteoarthritis: Admission and Anticipated Discharge Date Admission Date: August 26, 2019 Subjective Patient seen after cardiac event (loop) recorder implantation. Patient is lying in bed, in no acute distress, says she only had local anesthesia. She denies any fevers, chills, chest pain, shortness of breath, abdominal pain, nausea or vomiting. She does not have any dizziness, lightheadedness. Telemetry - sinus bradycardia in the upper 40s to mid 50 bpm range at rest. Review of Systems Review of Systems: All systems reviewed & are unremarkable except as noted in HPI & below Constitutional: no fever and no chills Respiratory: no cough and no dyspnea Cardiovascular: no chest pain and no palpitations Gastrointestinal: no abdominal pain and no vomiting Physical Exam Physical Exam: Gen- elderly female, lying in bed, AAO x 3, in NAD Head- NCAT, EOMI, PERRL, Anicteric Sclera Neck- Supple, No JVD,No Masses Lungs- Clear to Auscultation Bilaterally, No Rhonchi, or crackles, or Wheezing Chest- regular, bradycardic, no murmurs , no LE edema Abdomen- Soft, Bowel Sounds Present, Non Tender, Non Distended, No Rigidity, No Guarding Musculoskeletal- Full Range of Motion Bilaterally Extremities- No Cyanosis, No Clubbing, No Edema, moves extremities spontaneously Neuro- alert and oriented x3, speech fluent, no facial symmetry, moves all extremities spontaneously Psych- euthymic mood Results & Data Results & Data ([facility]) Vital Signs (Past 12 Hours) Vital Signs Temp Pulse Pulse Resp BP Pulse Ox 08/29/19 19:45 36.4 C L 52 L 16 137/81 98 08/29/19 16:47 56 L 08/29/19 15:44 36.7 C 52 L 18 118/70 100 Laboratory Results 08/29/19 08/29/19 08/29/19 Range/Units 11:18 07:12 06:53 WBC (4.8-10.8) K/uL RBC (4.2-5.4) M/uL Hgb (12.0-16.0) g/dL Hct (37-47) % MCV (80-100) fL MCH (25-34) pg MCHC (32-36) g/dL RDW Std Deviation (36.4-46.3) fL RDW Coeff of Myra (11.5-14.5) % Plt Count (130-400) K/uL MPV (7.4-10.4) fL Sodium 141 (136-145) mmol/L Potassium 3.9 (3.5-5.1) mmol/L Chloride 110 H (98-107) mmol/L Carbon Dioxide 28 (21-32) mmol/L Anion Gap 3.0 (3-11) BUN 12 (7-18) mg/dl Creatinine 0.98 (0.6-1.2) mg/dl Est Cr Clr Drug Dosing 45.3 ml/min Est GFR ( Amer) 65.9 Est GFR (Non-Af Amer) 56.8 BUN/Creatinine Ratio 11.9 (10-20) Glucose 110 H (70-99) mg/dl POC Glucose 109 H 107 H (70-99) mg/dl Calcium 8.7 (8.5-10.1) mg/dl 08/29/19 Range/Units 06:53 WBC 4.75 L (4.8-10.8) K/uL RBC 3.38 L (4.2-5.4) M/uL Hgb 10.7 L (12.0-16.0) g/dL Hct 32.6 L (37-47) % MCV 96.4 (80-100) fL MCH 31.7 (25-34) pg MCHC 32.8 (32-36) g/dL RDW Std Deviation 49.9 H (36.4-46.3) fL RDW Coeff of Myra 14.3 (11.5-14.5) % Plt Count 226 (130-400) K/uL MPV 10.0 (7.4-10.4) fL Sodium (136-145) mmol/L Potassium (3.5-5.1) mmol/L Chloride (98-107) mmol/L Carbon Dioxide (21-32) mmol/L Anion Gap (3-11) BUN (7-18) mg/dl Creatinine (0.6-1.2) mg/dl Est Cr Clr Drug Dosing ml/min Est GFR ( Amer) Est GFR (Non-Af Amer) BUN/Creatinine Ratio (10-20) Glucose (70-99) mg/dl POC Glucose (70-99) mg/dl Calcium (8.5-10.1) mg/dl Medications Administered Current Inpatient Medications Acetaminophen (Tylenol) 650 mg PO Q4H PRN PRN Reason: Pain or Fever Stop: 09/25/19 06:47 Last Admin: 08/29/19 20:06 Dose: 650 mg Documented by: Albuterol (Ventolin Hfa) 2 puffs INH Q6H PRN PRN Reason: Shortness Of Breath Or Wheezing Stop: 09/25/19 07:06 Amiodarone HCl (Cordarone) 200 mg PO TIDM VIVEK Stop: 09/25/19 11:59 Last Admin: 08/29/19 18:36 Dose: 200 mg Documented by: Amlodipine Besylate (Norvasc) 2.5 mg PO [facility] Stop: 09/26/19 09:59 Last Admin: 08/29/19 08:09 Dose: 2.5 mg Documented by: Apixaban (Eliquis) 5 mg PO BID [facility] Stop: 09/28/19 20:59 Last Admin: 08/29/19 20:07 Dose: 5 mg Documented by: Hydralazine HCl (Hydralazine Hcl) 5 mg IV Q6 PRN PRN Reason: Blood Pressure - High Stop: 09/26/19 17:50 Ioversol (Optiray 320 125ml) 118 ml IV ONCE PRN PRN Reason: Interaction Checking Stop: 08/30/19 10:05 Last Admin: 08/26/19 10:06 Dose: 118 ml Documented by: Metoprolol Succinate (Toprol Xl) 25 mg PO [facility] Stop: 09/25/19 09:14 Last Admin: 08/29/19 08:09 Dose: 25 mg Documented by: Nitroglycerin (Nitrostat) 0.4 mg SL UD PRN PRN Reason: Chest Pain Stop: 09/25/19 06:47 Polyethylene Glycol (Miralax Powder Packet) 17 gm PO DAILY PRN PRN Reason: Constipation Stop: 09/25/19 06:47 Vitamin D (Vitamin D3) 2,000 units PO [facility] Stop: 09/25/19 08:59 Last Admin: 08/29/19 08:09 Dose: 2,000 units Documented by: (1) Chest pain Chest pain type: unspecified Qualified Code(s): R07.9 - Chest pain, unspecified
[2019-08-30 05:49] LABS: Hematocrit (blood only) 35.1 % (37-47); Hemoglobin 11.4 g/dL (12.0-16.0); Mean Corpuscular Hgb Conc 32.5 g/dL (32-36); Mean Corpuscular Volume 95.4 fL (80-100); Platelet Count 252 K/uL (130-400); RDW Coefficient of Variation 14.2 % (11.5-14.5); RDW Standard Deviation 48.8 fL (36.4-46.3); Red Blood Count 3.68 M/uL (4.2-5.4); White Blood Count 3.78 K/uL (4.8-10.8)
[2019-08-30 06:25] LABS: BUN Creatinine Ratio 14.4 (10-20); Calcium 8.6 mg/dl (8.5-10.1); Creatinine Clr Calc Pharmacy 51.6 ml/min; Est GFR (African American) 77.1; Est GFR (Non-African American) 66.6; Magnesium 2.1 mg/dl (1.8-2.4); Potassium 3.6 mmol/L (3.5-5.1)
[2019-08-30] MEDS: AMIODARONE 200 MG TAB PO SCH ×2 (07:46→11:51)
[2019-08-30] MEDS: CHOLECALCIFEROL 1,000 UNITS 25 MCG TAB PO SCH (07:46)
[2019-08-30] MEDS: APIXABAN 5 MG TABLET PO SCH (07:47)
[2019-08-30] MEDS: AMLODIPINE BESYLATE 5 MG TAB PO SCH (07:47)
[2019-08-30] MEDS: METOPROLOL SUCC 25MG EXT REL TAB PO SCH (07:47)
--- NOTE | 2019-08-30 07:50 | Hospitalist Progress Note ---
Date of Service August 30, 2019 Assessment & Plan (1) Atrial fibrillation with rapid ventricular response: (2) Elevated troponin: (3) Chest pain: NSTEMI ruled in cardiac cath on August 26, no target lesions, clean coronary arteries Wide-complex tachycardia Patient presented with chest pain, wide-complex tachycardia, 235 bpm noted EMS EKG, either ventricular tachycardia or supraventricular tachycardia with aberrant conduction (please see cardiology note for further detail) Pt has hx of Paroxysmal atrial fibrillation Non-ST segment elevation myocardial infarction, coronaries on cardiac catheterization, elevation in troponin and symptoms likely due to tachycardia with very fast rate Cardiology consulted, per their impression her risk of sudden cardiac related to her tachycardia is low. Now s/p implantable loop recorder today (08/29/2019) , for further evaluation to determine frequency of tachycardia episodes, response to treatment, to determine if she has associated symptoms moving forward. Continue metoprolol and oral amiodarone. Amiodarone decreased to 200 mg daily In terms of stroke prophylaxis in the setting of paroxysmal atrial fibrillation, resumed anticoagulation, Eliquis. Plan to discharge patient on metoprolol, amiodarone, amlodipine and Eliquis. Patient will be following up with cardiology for her device check on September 05. (4) Thoracic ascending aortic aneurysm: Thoracic aortic aneurysm, 4.5 cm on recent outpatient PET scan, 0.[address] the chest performed during this hospital stay Her thoracic aortic aneurysm will be followed as an outpatient, likely with repeat imaging at a six-month interval. 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 Oncology recommended CT abdomen pelvis, no significant changes from prior noted. Also recommended to obtain chromogranin A level, which was ordered 24 hour urine for 5-HIAA collected. (7) Hypertension: BP currently at goal Cardiology following Continue to monitor Plan to DC on amiodarone, metoprolol and amlodipine (8) Coronary vasospasm: Continue amlodipine (9) Hyperlipidemia: (10) Osteoarthritis: Admission and Anticipated Discharge Date Admission Date: August 26, 2019 Subjective Patient s/p cardiac event (loop) recorder implantation yesterday. Currently patient is sitting up in bed, in no acute distress. Denies any chest pain, palpitations, shortness of breath, dizziness or lightheadedness. She also denies any nausea vomiting or abdominal pain. Cardiology discussed with patient's oncologist, recommended CT scan of abdomen pelvis which was obtained, did not change any significant changes from prior. Plan to discharge patient home today, on amiodarone, metoprolol, amlodipine and Eliquis. Coupon for Eliquis provided for the patient. Review of Systems Review of Systems: All systems reviewed & are unremarkable except as noted in HPI & below Constitutional: no fever and no chills Respiratory: no cough and no dyspnea Cardiovascular: no chest pain and no palpitations Gastrointestinal: no abdominal pain, no nausea and no vomiting Physical Exam Physical Exam: Gen- elderly female, lying in bed, AAO x 3, in NAD Head- NCAT, EOMI, PERRL, Anicteric Sclera Neck- Supple, No JVD,No Masses Lungs- Clear to Auscultation Bilaterally, No Rhonchi, or crackles, or Wheezing Chest- regular, bradycardic, no murmurs , no LE edema, loop recorder noted, no erythema or swelling or drainage noted around Abdomen- Soft, Bowel Sounds Present, Non Tender, Non Distended, No Rigidity, No Guarding Musculoskeletal- Full Range of Motion Bilaterally Extremities- No Cyanosis, No Clubbing, No Edema, moves extremities spontaneously Neuro- alert and oriented x3, speech fluent, no facial symmetry, moves all extremities spontaneously Psych- euthymic mood Results & Data Results & Data ([facility]) Vital Signs (Past 12 Hours) Vital Signs Temp Pulse Resp BP Pulse Ox 08/30/19 07:44 36.5 C 44 L 18 107/60 100 08/30/19 04:36 36.4 C L 50 L 18 112/65 99 08/30/19 00:10 36.6 C 57 L 18 96/56 L 98 Laboratory Results 08/30/19 08/30/19 08/29/19 Range/Units 05:33 05:33 11:18 WBC 3.78 L (4.8-10.8) K/uL RBC 3.68 L (4.2-5.4) M/uL Hgb 11.4 L (12.0-16.0) g/dL Hct 35.1 L (37-47) % MCV 95.4 (80-100) fL MCH 31.0 (25-34) pg MCHC 32.5 (32-36) g/dL RDW Std Deviation 48.8 H (36.4-46.3) fL RDW Coeff of Myra 14.2 (11.5-14.5) % Plt Count 252 (130-400) K/uL MPV 10.0 (7.4-10.4) fL Sodium 140 (136-145) mmol/L Potassium 3.6 (3.5-5.1) mmol/L Chloride 108 H (98-107) mmol/L Carbon Dioxide 25 (21-32) mmol/L Anion Gap 7.0 (3-11) BUN 12 (7-18) mg/dl Creatinine 0.86 (0.6-1.2) mg/dl Est Cr Clr Drug Dosing 51.6 ml/min Est GFR ( Amer) 77.1 Est GFR (Non-Af Amer) 66.6 BUN/Creatinine Ratio 14.4 (10-20) Glucose 104 H (70-99) mg/dl POC Glucose 109 H (70-99) mg/dl Calcium 8.6 (8.5-10.1) mg/dl Magnesium 2.1 (1.8-2.4) mg/dl Medications Administered Current Inpatient Medications Acetaminophen (Tylenol) 650 mg PO Q4H PRN PRN Reason: Pain or Fever Stop: 09/25/19 06:47 Last Admin: 08/29/19 20:06 Dose: 650 mg Documented by: Albuterol (Ventolin Hfa) 2 puffs INH Q6H PRN PRN Reason: Shortness Of Breath Or Wheezing Stop: 09/25/19 07:06 Amiodarone HCl (Cordarone) 200 mg PO TIDM [facility] Stop: 09/25/19 11:59 Last Admin: 08/29/19 18:36 Dose: 200 mg Documented by: Amlodipine Besylate (Norvasc) 2.5 mg PO QAM [facility] Stop: 09/26/19 09:59 Last Admin: 08/29/19 08:09 Dose: 2.5 mg Documented by: Apixaban (Eliquis) 5 mg PO BID [facility] Stop: 09/28/19 20:59 Last Admin: 08/29/19 20:07 Dose: 5 mg Documented by: Hydralazine HCl (Hydralazine Hcl) 5 mg IV Q6 PRN PRN Reason: Blood Pressure - High Stop: 09/26/19 17:50 Ioversol (Optiray 320 125ml) 118 ml IV ONCE PRN PRN Reason: Interaction Checking Stop: 08/30/19 10:05 Last Admin: 08/26/19 10:06 Dose: 118 ml Documented by: Metoprolol Succinate ([facility] Xl) [facility] Stop: 09/25/19 09:14 Last Admin: 08/29/19 08:09 Dose: 25 mg Documented by: Nitroglycerin (Nitrostat) 0.4 mg SL UD PRN PRN Reason: Chest Pain Stop: 09/25/19 06:47 Polyethylene Glycol (Miralax Powder Packet) 17 gm PO DAILY PRN PRN Reason: Constipation Stop: 09/25/19 06:47 Vitamin D (Vitamin D3) 2,000 units PO [facility] Stop: 09/25/19 08:59 Last Admin: 08/29/19 08:09 Dose: 2,000 units Documented by: (1) Chest pain Chest pain type: unspecified Qualified Code(s): R07.9 - Chest pain, unspecified
[2019-08-30] MEDS ORDERED: POTASSIUM CHLORIDE 20 MEQ TABCR PO STA (08:04)
--- NOTE | 2019-08-30 14:21 | Cardiology Progress Note ---
Date of Service August 30, 2019 Assessment & Plan (1) Wide-complex tachycardia: Patient presented with chest pain, wide-complex tachycardia, 235 bpm noted EMS EKG, either ventricular tachycardia or supraventricular tachycardia with aberrant conduction Paroxysmal atrial fibrillation Non-ST segment elevation myocardial infarction, coronaries on cardiac catheterization, elevation in troponin and symptoms likely due to tachycardia with very fast rate Thoracic aortic aneurysm, 4.5 cm on recent outpatient PET scan, 0.[address] the chest performed during this hospital stay Underlying carcinoid tumor with hepatic metastatic disease Discussion/plan: In terms of risk stratification for sudden cardiac , the patient's ejection fraction is normal. Although she does endorse episodes of transient loss of consciousness, these have typically occurred in the setting of straining while having bowel movements on the commode. Her symptom onset was over 2 hours prior to the presentation of EMS when the wide-complex tachycardia was recorded, she did not present with syncope this admission. My initial impression is that her risk of sudden cardiac related to her tachycardia is low. Pt underwent placement loop recorder 08/29/19 , for further evaluation to det ermine frequency of tachycardia episodes, response to treatment, to determine if she has associated symptoms moving forward. Continue metoprolol and oral amiodarone. Will reduced amiodarone dose to 200 mg today, and plan for that as her maintenance dose. Pt has liver metastatic disease, however given the circumstances, benefits of amiodarone therapy are felt to outweigh the risk. In terms of stroke prophylaxis in the setting of paroxysmal atrial fibrillation, will resume anticoagulation with Eliquis. I favor this agent over the Xarelto which she had been on previously. With her history of carcinoid in mind, I went back and reviewed her recent echocardiogram from earlier this hospital stay. The tricuspid valve was not optimally visualized, the structure and function appears grossly normal with only mild mitral regurgitation, and no thickening or nodularity noted of the valve leaflets on limited visualization. Her thoracic aortic aneurysm will be followed as an outpatient, likely with repeat imaging at a six-month interval. I spoke to her oncologist, Dr. Courtney Ramirez , [place] [facility] today, 08/[place], and updated her on the events of this hospital stay. Dr Ramirez noted that there is no recent PET scan available for comparison to the recent 08/23/[address] scan of the abdomen and pelvis with contrast performed 07/21/2019 at [facility] revealed an interval decrease in size and the metastatic lesions within the liver compared to a prior CT performed in September 2018. Dr Ramirez recommended a repeat CT scan of the A/P for comparison so that we can reassess the patient's interval response to treatment with Lutathera. At 24 hour urine 5-HIAA level was collected this admission, the results of which are pending. Per suggestion of Dr Ramirez I have ordered at Chromogranin A level, which has also been utilized for monitoring patient's neuroendocrine tumor, with past readings as high as 10,000, and a more recent reading of 3600. Await CT results prior to considering discharge. DVT prophylaxis: pt on Eliquis , full anticoagulation. Dr Jonathan michelle on 08/30, Dr uRbio on 08/31 DISPOSITION: Wound check/device interrogation as already planned at [facility] on 09/06/2019. Patient plans to transition her cardiac care from [facility] to our practice. I will request a follow up visit. Georgina Giordano is seen in follow-up today. She is feeling well feels ongoing sinus bradycardia rest rates in the mid 50s for the most part at rest. No recurrence of wide complex tachycardia or AF noted. Physical Exam Physical Exam: Temp Pulse Resp BP Pulse Ox 36.8 C 59 L 19 126/75 99 08/30/19 11:41 08/30/19 11:41 08/30/19 11:41 08/30/19 11:41 08/30/19 11:41 Constitutional: WD/WN, vitals as above Respiratory: normal respiratory effort, lungs clear to auscultation Cardiovascular: RRR, no murmur, no edema Gastrointestinal (Abdomen): normal bowel sounds, soft, nontender, no h epatosplenomegaly Neurologic: PERRL, EOMI, accommodation nl, no face palsy, no dysarthria Results & Data Vital Signs (Past 12 Hours) Vital Signs Temp Pulse Pulse Resp BP BP Pulse Ox 08/30/19 11:41 36.8 C 59 L 19 126/75 99 08/30/19 08:00 46 L 08/30/19 07:44 36.5 C 44 L 18 107/60 100 08/30/19 04:36 36.4 C L 50 L 18 112/65 99 Laboratory Results CBC 08/30/19 Range/Units 05:33 WBC 3.78 L (4.8-10.8) K/uL RBC 3.68 L (4.2-5.4) M/uL Hgb 11.4 L (12.0-16.0) g/dL Hct 35.1 L (37-47) % Plt Count 252 (130-400) K/uL Comprehensive Metabolic Panel 08/30/19 Range/Units 05:33 Sodium 140 (136-145) mmol/L Potassium 3.6 (3.5-5.1) mmol/L Chloride 108 H (98-107) mmol/L Carbon Dioxide 25 (21-32) mmol/L BUN 12 (7-18) mg/dl Creatinine 0.86 (0.6-1.2) mg/dl Glucose 104 H (70-99) mg/dl Calcium 8.6 (8.5-10.1) mg/dl Intake and Output 08/29/19 08/30/19 08/30/19 22:59 06:59 14:59 Intake Total 300 / 820 220 / 820 Output Total 1974 Balance -575 / -1155 -530 / -1155 Intake: Oral 300 / 820 220 / 820 Output: Urine 1974 Other: Weight 62.3 kg
[2019-08-30] MEDS ORDERED: IOVERSOL 100ml IV PRN (14:48)
--- NOTE | 2019-08-30 15:02 | Communication Note ---
Date of Service: August 30, 2019 I called and updated pt's daughter, Dayan. Ct of A/ P is completed. Report pending. Will advance pt's diet.
--- NOTE | 2019-08-30 15:20 | CT Scan Report ---
CT SCAN OF THE ABDOMEN AND PELVIS WITH IV CONTRAST CLINICAL HISTORY: Carcinoid tumor. COMPARISON STUDY: Abdominal CT dated 07/21/2019 and 02/10/2016. TECHNIQUE: Following the IV administration of 94 cc of Optiray 320, CT scan of the abdomen and pelvi s is performed from the lung bases to the proximal femora. Images are reviewed in the axial, sagittal , and coronal planes. IV contrast was administered without complication. A dose lowering technique wa s utilized adhering to the principles of ALARA. CT DOSE: 285.55 mGy.cm FINDINGS: Lung bases: The heart is normal in size and without pericardial effusion. A 3 mm left lower lobe pulm onary nodule is seen on image #31. This is unchanged from 2016. The lung bases are otherwise clear no ting bibasilar scarring/atelectasis. Liver: The contrast-enhanced liver is normal in size, contour, and attenuation. There is mild to mode rate intrahepatic biliary ductal dilatation. The hepatic veins and portal veins are patent. Findings multifocal hepatic metastatic disease is similar to previous. The largest lesion in the right lobe on image #66 measures approximately 8 cm in maximum dimension. Gallbladder: Surgically absent noting clips in the gallbladder fossa. Spleen: Normal in size and attenuation. Pancreas: Atrophic and grossly unremarkable. Adrenal glands: Unremarkable. Kidneys: The contrast enhanced kidneys are normal in size and without hydronephrosis. The kidneys enh ance symmetrically. Abdominal vasculature: The abdominal aorta is normal in course and caliber noting moderate to advance d atherosclerotic calcification. 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 There is approximately 50% stenosis of the right common iliac artery. Bowel: There is no bowel obstruction. Enteric contrast reaches the transverse colon. Moderate constip ation is observed. Postoperative change is noted in the small bowel in the upper pelvis. The appendix is not identified and reported surgically absent. Peritoneum: There is no intraperitoneal free air or abdominal ascites. There is a 2.5 x 1.6 cm nodule /lesion in the lower mesentery seen on image #258. This finding does neoplastic reaction and this is typical appearance for a small carcinoid. There are numerous surrounding subcentimeter mesenteric lym ph nodes. Lymphadenopathy: There are numerous small mesenteric lymph nodes as above.. Pelvic viscera: The bladder is normal as visualized. The uterus is surgically absent. No adnexal lesi on is seen. Skeletal structures: The skeletal structures are osteopenic. There is moderate lumbosacral spondylosi s. Moderate to advanced degenerative change is seen in the hips. No lytic or blastic lesions are seen . Soft tissues: There are numerous foci of soft tissue nodularity in the gluteal region. Strategic Planning Specialist lesions are seen on image #296 and measure up to 12 mm. IMPRESSION: 1. Multifocal hepatic metastatic disease is similar in appearance to the 07/21/2019 examination. 2. A mesenteric lesion with surrounding desmoplastic reaction and tiny mesenteric lymph nodes is also unchanged. This is typical in appearance for metastatic carcinoid tumor. 3. Moderate constipation. No bowel obstruction is identified. 4. Intra and extrahepatic biliary ductal dilatation is similar to previous. 5. 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 6. Numerous round foci of induration are identified within the gluteal fat. Correlate clinically for history of gluteal injections. 7. Additional findings as above. ACT 112: Negative or not required by law. Electronically signed by: Arsalan Matthew M.D. 08/30/2019 3:19 PM
--- NOTE | 2019-08-30 15:59 | Communication Note ---
Date of Service: August 30, 2019 CT A/P reveals stable metastatic disease. SMA stenosis noted. Pt asymptomatic from SMA standpoint. Given new amiodarone therapy, will hold of on statin for now. Will follow up as outpatient. OK from my standpoint for discharge.
--- NOTE | 2019-08-30 17:38 | Discharge Summary ---
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 The patient says she woke up with pins and needles in the chest and felt short of breath, sweating and nausea and she felt her heart was racing. She asked her daughter to call the EMS and came in here and she was found to be in rapid AFib. She was started on Cardizem drip. Currently resting comfortably. Heart rate is still somewhat high, but the patient states that her chest pain got resolved. She says is always dizzy. Denies any headache. She had some floaters earlier but that has resolved. Denies any earache, no runny nose, no sore throat, no cough, no loss of sense of smell or taste. Appetite is okay. No dysphagia. Does not sleep well. Currently, no nausea, no abdominal pain. Normal bowel and bladder movements. No hematuria or blood in the stools. No rash. No swelling in the legs. She ambulates with a walker. She cannot climb steps. Admission Exam Per Admitting Provider GENERAL: The patient is of moderate build, not in acute distress. VITAL SIGNS: Temperature 37.1, pulse 119, respiratory rate 18, blood pressure 116/72, oxygen 95% on room air. HEENT: No pallor, no icterus. Pupils equal, round, reactive to light. NECK: No JVD, no neck masses. CARDIOVASCULAR: S1, S2 heard. Tachycardia, irregular rhythm. No murmurs. RESPIRATORY SYSTEM: Normal AP diameter. No accessory muscle use. No wheezing, no crackles. ABDOMEN: Soft, bowel sounds present. Mild abdominal discomfort. No guarding, no rigidity. No distention. CENTRAL NERVOUS SYSTEM: Cranial nerves II-XII grossly intact, nonfocal. EXTREMITIES: No edema, no erythema. Principal Diagnosis Chest pain secondary to NSTEMI and wide-complex tachycardia Discharge Exam Gen- elderly female, lying in bed, AAO x 3, in NAD Head- NCAT, EOMI, PERRL, Anicteric Sclera Neck- Supple, No JVD,No Masses Lungs- Clear to Auscultation Bilaterally, No Rhonchi, or crackles, or Wheezing Chest- regular, bradycardic, no murmurs , no LE edema, loop recorder noted, no erythema or swelling or drainage noted around Abdomen- Soft, Bowel Sounds Present, Non Tender, Non Distended, No Rigidity, No Guarding Musculoskeletal- Full Range of Motion Bilaterally Extremities- No Cyanosis, No Clubbing, No Edema, moves extremities spontaneously Neuro- alert and oriented x3, speech fluent, no facial symmetry, moves all extremities spontaneously Psych- euthymic mood Discharge Data Allergies Allergy/AdvReac Type Severity Reaction Status Date / Time nut - unspecified Allergy Severe throat Verified 08/26/19 03:07 swelling aspirin Allergy Intermediate "ASTHMA" Verified 08/26/19 03:07 celecoxib Allergy Intermediate "ASTHMA Verified 08/26/19 03:07 ATTACK" codeine Allergy Intermediate "FACE Verified 08/26/19 03:07 PUFFS UP" morphine Allergy Intermediate "FACE Verified 08/26/19 03:07 PUFFS UP" latex Allergy Mild RASH Verified 08/26/19 03:07 caffeine AdvReac Intermediate HEADACHE Verified 08/26/19 03:07 midazolam AdvReac Intermediate extreme Verified 08/26/19 03:07 anxiety fentanyl AdvReac Mild DELIRIUM Verified 08/26/19 03:07 lorazepam AdvReac Mild ANXIOUS Verified 08/26/19 03:07 Consultations 08/26/19 04:27 ED Decision to Admit Stat 08/26/19 06:48 Consult Case Management - Discharge Planning Routine 08/26/19 08:00 Consult Cardiology Routine Procedures Performed Operation Date: 08/27/19 13:30 Actual Procedures p Cath, Left with Cors and Vent - Reynaldo Rust MD s Cineradiography w/Routine Exam - Reynaldo Rust MD Operation Date: 08/29/19 15:45 Actual Procedures p Implant Cardiac Event Recorder - Criselda Velazquez DO Ordered Studies 08/26/19 09:37 CT angio chest PE protocol Stat IMPRESSION: 1. No evidence for pulmonary embolus with limitations as described above. 2. Stable subcentimeter pulmonary nodules. 3. Mild aneurysmal dilatation of the ascending thoracic aorta measuring up to 4 .3 cm in diameter. 4. Faint groundglass density within the periphery of the right upper and lower lobes posteriorly. This favors mild dependent change. A focus of inflammatory/infectious change could also a similar appearance. 08/26/19 11:21 US venous doppler LE LT Urgent IMPRESSION: No DVT within the left lower extremity. 08/27/19 10:03 CL Cath Imgs for PACS use only Routine 08/29/19 15:51 CL Cath Imgs for PACS use only Routine 08/30/19 14:30 CT abd pelvis oral and IV con Urgent IMPRESSION: 1. Multifocal hepatic metastatic disease is similar in appearance to the 07/21/2019 examination. 2. A mesenteric lesion with surrounding desmoplastic reaction and tiny mesenteric lymph nodes is also unchanged. This is typical in appearance for metastatic carcinoid tumor. 3. Moderate constipation. No bowel obstruction is identified. 4. Intra and extrahepatic biliary ductal dilatation is similar to previous. 5. 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 6. Numerous round foci of induration are identified within the gluteal fat. Correlate clinically for history of gluteal injections. Hospital Course (1) Atrial fibrillation with rapid ventricular response: (2) Elevated troponin: (3) Chest pain: NSTEMI ruled in cardiac cath on August 26, no target lesions, clean coronary arteries Wide-complex tachycardia Patient presented with chest pain, wide-complex tachycardia, 235 bpm noted EMS EKG, either ventricular tachycardia or supraventricular tachycardia with aberrant conduction (please see cardiology note for further detail) Pt has hx of Paroxysmal atrial fibrillation Non-ST segment elevation myocardial infarction, coronaries on cardiac catheterization, elevation in troponin and symptoms likely due to tachycardia with very fast rate Cardiology consulted, per their impression her risk of sudden cardiac related to her tachycardia is low (please see their note for further detail). Now s/p implantable loop recorder (08/29/2019) , for further evaluation to determine frequency of tachycardia episodes, response to treatment, to determine if she has associated symptoms moving forward. Continue metoprolol and oral amiodarone. Amiodarone decreased to 200 mg daily In terms of stroke prophylaxis in the setting of paroxysmal atrial fibrillation, resumed anticoagulation, Eliquis. Plan to discharge patient on metoprolol, amiodarone, amlodipine and Eliquis. Patient will be following up with cardiology for her device check on September 05. (4) Thoracic ascending aortic aneurysm: Thoracic aortic aneurysm, 4.5 cm on recent outpatient PET scan, 0.[address] the chest performed during this hospital stay Her thoracic aortic aneurysm will be followed as an outpatient, likely with repeat imaging at a six-month interval. (5) Hypernatremia: Now resolved Continue to monitor (6) Carcinoid tumor of abdomen: with hepatic metastatic disease Cardiology contacted patient's oncologist at [facility] [facility], and anticipate upcoming discussion regarding cardiac updates. Oncology recommended CT abdomen pelvis, no significant changes from prior noted. Also recommended to obtain chromogranin A level, which was ordered 24 hour urine for 5-HIAA collected. (7) Hypertension: BP currently at goal Cardiology following Continue to monitor Plan to DC on amiodarone, metoprolol and amlodipine (8) Coronary vasospasm: Continue amlodipine (9) Hyperlipidemia: (10) Osteoarthritis: Total Time Total Time Spent Total Time Spent (In Minutes): 40 Total Time Includes: Examination of the Patient, Discharge Planning, Medication Reconciliation and Communication With Other Providers Discharge Plan Discharge Items Patient Disposition: Home - Self-Care Reason For Visit: CHEST PAIN Discharge Diagnosis: Chest pain secondary to NSTEMI and wide-complex tachycardia Activity: Per Instructions section Bathing: Keep incision dry Bathing Comment: keep incision dry until 08/31/2019 then let water run over the incision Non-emergency contact: Primary Care Provider and Network Security Architect Call non-emergency contact if: you have any medication questions and your symptoms worsen Follow-up/Referrals: Genia Cullen, [Primary Care Provider] - 09/04/19 2:00 pm (09/04/2019 2:00 PM Provider Kane Bundy III, MD Department [facility] ) Diet: Heart Healthy Addtl Attending Provider Instructions: Follow-up with your primary care doctor on September 03. Make sure that your primary doctor reviews all your new medications. Device and wound check at [facility] on 09/06/2019 at 10:45am. You were started on several new medications: metoprolol, amiodarone, amlodipine, Eliquis. If you have any questions about these medications, contact your loft worker pile driving, or primary care doctor. Eliquis is an anticoagulant (a blood thinner) to help prevent stroke from your paroxysmal atrial fibrillation. Pending Studies at Discharge: Yes Studies:: 5HIAA Chromogranin A Stand-Alone Forms: My [facility], Smoking Cessation Medications and DC Order Prescriptions: New Eliquis 5 mg Tablet 5 mg PO BID 30 Days Qty: 60 RF: 0 amiodarone 200 mg Tablet 200 mg PO QAM 30 Days Qty: 30 RF: 0 amlodipine [Norvasc] 5 mg Tablet 2.5 mg PO QAM 30 Days Qty: 15 RF: 0 metoprolol succinate 25 mg Tablet Extended Release 24 Hr 25 mg PO QAM 30 Days Qty: 30 RF: 0 polyethylene glycol 3350 [Miralax] 17 gram Powder In Packet 17 g PO DAILY 30 Days Qty: 30 RF: 0 Continued Somatuline [place] 120 mg/0.5 mL syringe 0 mg SQ MONTHLY RF: 0 acetaminophen [Tylenol] 325 mg tablet 325 mg PO Q6H PRN (Reason: pain/fever) RF: 0 cholecalciferol (vitamin D3) [Vitamin D3] 2,000 unit Capsule 2,000 units PO QAM RF: 0 albuterol sulfate 90 mcg/actuation aerosol powdr breath activated 2 puffs INH Q6H PRN (Reason: shortness of breath or wheezing) Qty: 1 RF: 1 Discharge Orders: Discharge Order (Routine); Ordered 08/30/19 Ordered By: Seth French Admission Data Admit Date/Time: 08/26/19 05:32 Attending Provider: Seth French Admit Provider: Yonatan Cagle Primary Care Provider: Genia Cullen Other Providers: Yonatan Cagle ; Zoltan Castillo ; Hua Morocho ; Mike Carrion ; Rufino Rubio ; Judson Callahan ; Cal Quiroz ; Chelsy Berg ; Criselda Velazquez ; Ta Webber ; Tunde Lopez Other Interventions: Discharge Summary Assessment (RN) Last Done: 08/30/19 17:12
[2019-08-31] MEDS ORDERED: AMIODARONE 200 MG TAB PO SCH (09:00)
[2019-09-04 05:13] LABS: Creatinine, 24 hr Urine 0.87 g/24 h (0.50-2.15)
[2019-09-04 13:22] LABS: 5-HIAA 30.8 H
--- NOTE | 2019-09-26 09:24 | Operative Report (OR) ---
"DATE OF OPERATION: 08/29/2019 PREOPERATIVE DIAGNOSES: Wide complex tachycardia and syncope. POSTOPERATIVE DIAGNOSES: Wide complex tachycardia and syncope. PROCEDURE: LINQ insertion. SURGEON: Criselda Velazquez DO. ASSISTANTS: None. ANESTHESIA: Local anesthesia, 10 mL of 1% lidocaine. BLOOD LOSS: 1 mL. URINE OUTPUT: Not applicable. SPECIMENS: None. FINDINGS: See below. DRAINS: None. ANTIBIOTICS: Two grams of Ancef. INDICATIONS: This is a 74-year-old female with past medical history for carcinoid tumor, constipation. She had a normal cardiac cath in 2016. She presented with syncope and wide complex tachycardia, possibly atrial fibrillation as opposed to VT. She was started on amiodarone and Eliquis, but due to the history of syncope and wide complex tachycardia, she was recommended a LINQ insertion prior to being discharged from [facility] [address]. Consent: Pt informed potential risk of bleeding and infection. Consents then signed. DESCRIPTION OF THE PROCEDURE: The patient was brought into the electrophysiology lab. She was connected to continuous cardiac monitoring. A timeout was performed to ensure patient identity and procedure correctly. She received prophylactic antibiotics prior to incision. She was prepped and draped over the left sternal border in normal surgical standard fashion. [place] precautions were maintained throughout the procedure. 10 mL of 1% lidocaine were given in the fourth intercostal space to the left of the sternum. Then using the LINQ insertion kit, the LINQ was inserted and then a 4-0 Vicryl was used, one interrupted stitch and a running stitch to approximate the skin followed then by Dermabond. EQUIPMENT: [id number] | [employer] LNQ11, serial number [id number], expiration 04/27/2020. POSTOPERATIVE TESTING: The R waves are 0.4 millivolts. PARAMETERS: Tachy 146 beats for 16 beats per minute, dinorah 40 beats per minute for 4 beats per minute and more than 3-second pause. IMPRESSION: Successful LINQ insertion secondary to syncope and wide complex tachycardia. PLAN: She is free to be discharged from my perspective. She will have a device and wound check in our Cardiology [facility] next week. I attest to the content of the Intraoperative Record and any orders documented therein. Any exceptions are noted below. CHAVEZ"
== END 2019-08-30 18:42 | disposition home health service (06) | DRG 260 ==
LOC: ED 02:40 → SUATTDRO 05:32 → 2S 05:32

== ENCOUNTER 2019-09-06 17:14 | Inpatient (IN) ==
[2019-09-06] MEDS ORDERED: SODIUM CHLORIDE 0.9% 500 ML IV SCH (18:00)
[2019-09-06] MEDS ORDERED: PANTOprazole 80 MG in DEXTROSE 5% 100 ML IV ONE (18:22)
[2019-09-06 18:44] LABS: Basophils # (auto) 0.03 K/uL (0-0.2); Basophils % (auto) 0.5 %; Eosinophils # (auto) 0.12 K/uL (0-0.5); Eosinophils % (auto) 2.1 %; Hematocrit (blood only) 33.8 % (37-47); Hemoglobin 11.3 g/dL (12.0-16.0); Immature Granulocytes # (auto) 0.01 K/uL (0.00-0.02); Immature Granulocytes % (auto) 0.2 %; Lymphocytes # (auto) 1.17 K/uL (1.2-3.4); Lymphocytes % (auto) 20.7 %; Mean Corpuscular Hemoglobin 31.8 pg (25-34); Mean Corpuscular Hgb Conc 33.4 g/dL (32-36); Mean Corpuscular Volume 95.2 fL (80-100); Mean Platelet Volume 10.1 fL (7.4-10.4); Monocytes # (auto) 0.38 K/uL (0.11-0.59); Monocytes % (auto) 6.7 %; Neutrophils # (auto) 3.94 K/uL (1.4-6.5); Neutrophils % (auto) 69.8 %; Platelet Count 313 K/uL (130-400); RDW Coefficient of Variation 14.4 % (11.5-14.5); RDW Standard Deviation 50.1 fL (36.4-46.3); Red Blood Count 3.55 M/uL (4.2-5.4); White Blood Count 5.65 K/uL (4.8-10.8)
[2019-09-06 19:18] LABS: Alanine Aminotransferase 25 U/L (12-78); Albumin Level 3.3 gm/dl (3.4-5.0); Alkaline Phosphatase 195 U/L (45-117); Aspartate Aminotransferase 34 U/L (15-37); BUN Creatinine Ratio 10.1 (10-20); Bilirubin,Total 0.3 mg/dl (0.2-1); Blood Urea Nitrogen 10 mg/dl (7-18); Calcium 8.7 mg/dl (8.5-10.1); Carbon Dioxide 24 mmol/L (21-32); Chloride 112 mmol/L (98-107); Est GFR (African American) 67.5; Est GFR (Non-African American) 58.3; Glucose 95 mg/dl (70-99); Lipase 56 U/L (73-393); Sodium 142 mmol/L (136-145); Total Protein 7.7 gm/dl (6.4-8.2)
[2019-09-06] MEDS: PANTOprazole 40 MG in DEXTROSE 5% 100 ML IV SCH (19:19)
--- NOTE | 2019-09-06 19:40 | Emergency Department Note ---
History of Present Illness General Chief complaint: GI Assessment Stated complaint: BLEEDING FROM BOWEL Time Seen by Provider: 09/06/19 17:54 History of Present Illness Provider complaint: GI bleed abdominal pain Onset (ago): day(s) 1 Location: abdomen Severity: moderate 4-year-old female with stage IV neuroendocrine tumor presents emergency department for GI bleed. Patient reports that around 11:30 AM today she started having bright red blood and dark black stools. She also reports slight abdominal pain. Pain is moderate in nature. Note no nausea vomiting shortness of breath or chest pain. No syncopal episodes. Patient is on Eliquis for atrial fibrillation Home Medications Home Medications Medication Instructions Recorded Confirmed Type cholecalciferol (vitamin D3) 2,000 units PO QAM 04/09/18 08/26/19 History [Vitamin D3] albuterol sulfate 2 puffs INH Q6H PRN #1 ea 08/15/18 08/26/19 Rx acetaminophen 325 mg tablet 325 mg PO Q6H PRN 12/13/18 08/26/19 History lanreotide 120 mg/0.5 mL 0 mg SQ MONTHLY ml 12/13/18 08/26/19 History subcutaneous syringe amiodarone 200 mg PO QAM 30 Days #30 tab 08/30/19 Rx amlodipine [Norvasc] 2.5 mg PO QAM 30 Days #15 tab 08/30/19 Rx apixaban [Eliquis] 5 mg PO BID 30 Days #60 tab 08/30/19 Rx metoprolol succinate 25 mg PO QAM 30 Days #30 tab 08/30/19 Rx polyethylene glycol 3350 [Miralax] 17 g PO DAILY 30 Days #30 ea 08/30/19 Rx Allergies Allergy/AdvReac Type Severity Reaction Status Date / Time nut - unspecified Allergy Severe throat Verified 08/26/19 03:07 swelling aspirin Allergy Intermediate "ASTHMA" Verified 08/26/19 03:07 celecoxib Allergy Intermediate "ASTHMA Verified 08/26/19 03:07 ATTACK" codeine Allergy Intermediate "FACE Verified 08/26/19 03:07 PUFFS UP" morphine Allergy Intermediate "FACE Verified 08/26/19 03:07 PUFFS UP" latex Allergy Mild RASH Verified 08/26/19 03:07 caffeine AdvReac Intermediate HEADACHE Verified 08/26/19 03:07 midazolam AdvReac Intermediate extreme Verified 08/26/19 03:07 anxiety fentanyl AdvReac Mild DELIRIUM Verified 08/26/19 03:07 lorazepam AdvReac Mild ANXIOUS Verified 08/26/19 03:07 Past Med/Surg History Medical History Anal fistula (Chronic) Asthma (Chronic) NO INHALER Atrial fibrillation (Chronic) On Xarelto 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 [facility], Dr. Escalera. Receiving Sandostatin injection monthly. Chronic anticoagulation (Chronic) Coronary vasospasm (Chronic) Hemorrhoids (Chronic) Hyperlipidemia (Chronic) BORDERLINE Hypertension (Chronic) Interstitial cystitis (Chronic) Liver cancer (Chronic) Osteoarthritis (Chronic) Perirectal abscess (Chronic) Proctocolitis UTI (urinary tract infection) Surgical History History of cardiac cath (Chronic) [facility] 2016; "Normal coronary arteries." History of dilatation and curettage (Chronic) History of hysterectomy (Chronic) History of liver biopsy (Chronic) History of tonsillectomy and adenoidectomy (Chronic) History of tooth extraction (Chronic) S/P appendectomy (Chronic) S/P cholecystectomy (Chronic) Family History Sister Family history of diabetes mellitus Social History Preferred Language: [place] Communication Ability: Effective Courtroom Reporter Required: No Beliefs That Will Affect Care: None marital status: Current Living Situation: Family Current Living Situation Comment: house Feels Safe at Home: Yes Smoking Status: Never smoker Second Hand Exposure: No ; Hx Alcohol Use: No Hx Substance Use: No Review of Systems A total of 10 systems reviewed and were otherwise negative Physical Exam Vital Signs Vital Signs - 24 hr 09/06/19 17:17 09/06/19 19:19 Temperature 37.0 C Temperature Source Oral Pulse Rate 68 Pulse Rate [Apical] 56 L Pulse Rhythm [Apical] Regular Respiratory Rate 18 18 Respiratory Effort / Characteristics Non-Labored Spontaneous Respiratory Depth Normal Blood Pressure 132/79 Blood Pressure [Right Arm] 173/87 H Blood Pressure Mean 96 Blood Pressure Mean [Right Arm] 115 Blood Pressure Position Sitting Blood Pressure Position [Right Arm] Lying Pulse Oximetry 98 98 Oxygen Delivery Method Room Air Sepsis Recent Fever Within 48 Hours No Sepsis New/Unexplained Change in Mental Status No Sepsis Action Taken by Nursing No Action Required Physical Exam GENERAL: She is oriented to person, place, and time. She appears well-developed and well-nourished. She does not appear distressed. HENT: Exam performed. -Head: Normocephalic and atraumatic. -Right Ear: External ear normal. No mastoid tenderness. -Left Ear: External ear normal. No mastoid tenderness. -Mouth/Throat: The oropharynx is clear and moist. No trismus in the jaw. No dental abscesses or uvula swelling. No oropharyngeal exudate or tonsillar abscesses. EYES: Conjunctivae and EOM are normal. Pupils are equal, round, and reactive to light. Right eye exhibits no discharge. Left eye exhibits no discharge. No scleral icterus. NECK: Normal range of motion. Neck supple. No JVD present. No spinous process tenderness present. No carotid bruit present. No rigidity. No tracheal deviation and normal range of motion present. No Brudzinski's sign and no Kernig's sign noted. CV: Normal rate, regular rhythm, normal heart sounds and intact distal pulses. There is no peripheral edema. Palpable radial pulses bue. PULM/CHEST: Effort normal and breath sounds normal. No respiratory distress. No stridor. She has no wheezes. She has no rales. -Chest Wall: She exhibits no tenderness. ABD: The abdomen is soft. Bowel sounds are normal. She has no distension. No mass is present. There is no tenderness. There is no rebound, no guarding, no Cristina's sign and no tenderness at McBurney's point. Rovsig negative Rectal: Performed by resident with female automobile sales consultant showed Hemoccult positive. MUSC/SKEL: Normal range of motion. There is no peripheral edema, tenderness or deformity. LYMPH: No cervical adenopathy. NEURO: She is alert and oriented to person, place, and time. She has normal strength. No cranial nerve deficit or sensory deficit. Coordination and gait normal. GCS eye subscore is 4. GCS verbal subscore is 5. GCS motor subscore is 6. Cerebellar tests wnl. SKIN: Skin is warm and dry. She is not diaphoretic. PSYCH: She has a normal mood and affect. Behavior is normal. Judgment and thought content normal. Course Course 1729: Patient seen by resident physician Dr. Kelsie Biggs 1750: The patient was evaluated in room C2. A complete history and physical exam was performed. Patient started on Protonix and Protonix drip 2044: Vital signs stable. Labs show stable hemoglobin. CT shows no acute changes from previous CT. Patient will be admitted to the hospital given her ad vanced age and being on blood thinners. Discussed with Dr. Gurjit Hoffman hospitalist who accepted admission Administered Medications Sodium Chloride (Nss) 500 mls @ 75 mls/hr IV .Q6H40M [facility] Stop: 10/06/19 17:59 Last Admin: 09/06/19 19:19 Dose: 75 mls/hr Documented by: [id number] Pantoprazole Sodium 40 mg/ (Dextrose) 100 mls @ 20 mls/hr IV Q5H [facility] Stop: 10/06/19 18:29 Last Admin: 09/06/19 19:19 Dose: 8 mg/hr, 20 mls/hr Documented by: [id number] Ioversol (Optiray 320 100ml) 93 ml IV ONCE PRN PRN Reason: Interaction Checking Stop: 09/10/19 20:11 Last Admin: 09/06/19 20:14 Dose: 1 ml Documented by: [id number] Discontinued Medications Pantoprazole Sodium 80 mg/ (Dextrose) 120 mls @ 400 mls/hr IV NOW ONE Stop: 09/06/19 18:39 Last Admin: 09/06/19 19:18 Dose: 400 mls/hr Documented by: [id number] Medical Decision Making Laboratory Data Result diagrams: 09/06/19 18:30 09/06/19 18:30 Lab Results 09/06/19 09/06/19 09/06/19 Range/Units 18:30 18:30 18:30 WBC 5.65 (4.8-10.8) K/uL RBC 3.55 L (4.2-5.4) M/uL Hgb 11.3 L (12.0-16.0) g/dL Hct 33.8 L (37-47) % MCV 95.2 (80-100) fL MCH 31.8 (25-34) pg MCHC 33.4 (32-36) g/dL RDW Std Deviation 50.1 H (36.4-46.3) fL RDW Coeff of Myra 14.4 (11.5-14.5) % Plt Count 313 (130-400) K/uL MPV 10.1 (7.4-10.4) fL Immature Gran % (Auto) 0.2 % Neut % (Auto) 69.8 % Lymph % (Auto) 20.7 % [place] % (Auto) 6.7 % Eos % (Auto) 2.1 % Baso % (Auto) 0.5 % Neut # (Auto) 3.94 (1.4-6.5) K/uL Lymph # (Auto) 1.17 L (1.2-3.4) K/uL [place] # (Auto) 0.38 (0.11-0.59) K/uL Eos # (Auto) 0.12 (0-0.5) K/uL Baso # (Auto) 0.03 (0-0.2) K/uL Immature Gran # (Auto) 0.01 (0.00-0.02) K/uL PT Cancelled INR Cancelled APTT Cancelled PTT Ratio Cancelled Sodium 142 (136-145) mmol/L Potassium 4.0 (3.5-5.1) mmol/L Chloride 112 H (98-107) mmol/L Carbon Dioxide 24 (21-32) mmol/L Anion Gap 6.0 (3-11) BUN 10 (7-18) mg/dl Creatinine 0.96 (0.6-1.2) mg/dl Est Cr Clr Drug Dosing Not Reportable Est GFR ( Amer) 67.5 Est GFR (Non-Af Amer) 58.3 BUN/Creatinine Ratio 10.1 (10-20) Glucose 95 (70-99) mg/dl POC Lactic Acid Sebas (0.90-1.70) mmol/L Calcium 8.7 (8.5-10.1) mg/dl Total Bilirubin 0.3 (0.2-1) mg/dl Direct Bilirubin (0-0.2) mg/dl AST 34 (15-37) U/L ALT 25 (12-78) U/L Alkaline Phosphatase 195 H (45-117) U/L Total Protein 7.7 (6.4-8.2) gm/dl Albumin 3.3 L (3.4-5.0) gm/dl Lipase 56 L (73-393) U/L 09/06/19 Range/Units 19:35 WBC (4.8-10.8) K/uL RBC (4.2-5.4) M/uL Hgb (12.0-16.0) g/dL Hct (37-47) % MCV (80-100) fL MCH (25-34) pg MCHC (32-36) g/dL RDW Std Deviation (36.4-46.3) fL RDW Coeff of Myra (11.5-14.5) % Plt Count (130-400) K/uL MPV (7.4-10.4) fL Immature Gran % (Auto) % Neut % (Auto) % Lymph % (Auto) % [place] % (Auto) % Eos % (Auto) % Baso % (Auto) % Neut # (Auto) (1.4-6.5) K/uL Lymph # (Auto) (1.2-3.4) K/uL [place] # (Auto) (0.11-0.59) K/uL Eos # (Auto) (0-0.5) K/uL Baso # (Auto) (0-0.2) K/uL Immature Gran # (Auto) (0.00-0.02) K/uL PT INR APTT PTT Ratio Sodium (136-145) mmol/L Potassium (3.5-5.1) mmol/L Chloride (98-107) mmol/L Carbon Dioxide (21-32) mmol/L Anion Gap (3-11) BUN (7-18) mg/dl Creatinine (0.6-1.2) mg/dl Est Cr Clr Drug Dosing Est GFR ( Amer) Est GFR (Non-Af Amer) BUN/Creatinine Ratio (10-20) Glucose (70-99) mg/dl POC Lactic Acid Sebas 1.09 (0.90-1.70) mmol/L Calcium (8.5-10.1) mg/dl Total Bilirubin (0.2-1) mg/dl Direct Bilirubin (0-0.2) mg/dl AST (15-37) U/L ALT (12-78) U/L Alkaline Phosphatase (45-117) U/L Total Protein (6.4-8.2) gm/dl Albumin (3.4-5.0) gm/dl Lipase (73-393) U/L Imaging Data Radiologist's Impression: CT SCAN OF THE ABDOMEN AND PELVIS WITH IV CONTRAST CLINICAL HISTORY: Generalized abdominal pain. GI bleeding. Carcinoid tumor. COMPARISON STUDY: Abdominal CT dated 08/30/2019 and 07/21/2019. TECHNIQUE: Following the IV administration of 94 cc of Optiray 320, CT scan of the abdomen and pelvis is performed from the lung bases to the proximal femora. Images are reviewed in the axial, sagittal, and coronal planes. IV contrast was administered without complication. A dose lowering technique was utilized adhering to the principles of ALARA. CT DOSE: 283.92 mGy.cm FINDINGS: Lung bases: The heart is normal in size and without pericardial effusion. A 3 mm left lower lobe pulmonary nodule is seen on image #14. This is unchanged from 2016. The lung bases are otherwise clear noting bibasilar scarring/atelectasis. Liver: The contrast-enhanced liver is normal in size, contour, and attenuation. There is mild to moderate intrahepatic biliary ductal dilatation. The hepatic veins and portal veins are patent. Findings multifocal hepatic metastatic disease is similar to previous. Gallbladder: Surgically absent noting clips in the gallbladder fossa. Spleen: Normal in size and attenuation. Pancreas: Atrophic and grossly unremarkable. Adrenal glands: Unremarkable. Kidneys: The contrast enhanced kidneys are normal in size and without hydronephrosis. The kidneys enhance symmetrically. Abdominal vasculature: The abdominal aorta is normal in course and caliber noting moderate to advanced atherosclerotic calcification. There is high-grade stenosis of the superior mesenteric artery seen on image #109. There is approximately 50% stenosis of the right common iliac artery. Bowel: There is no bowel obstruction. Enteric contrast reaches the transverse colon. Moderate constipation is observed. Postoperative change is noted in the small bowel in the upper pelvis. The appendix is not identified and reported surgically absent. Peritoneum: There is no intraperitoneal free air or abdominal ascites. There is a 2.6 cm nodule/lesion in the lower mesentery seen on image #233. There is associated desmoplastic reaction and this is typical appearance for a small carcinoid. There are numerous surrounding subcentimeter mesenteric lymph nodes. Lymphadenopathy: There are numerous small mesenteric lymph nodes as above.. Pelvic viscera: The bladder is normal as visualized. The uterus is surgically absent. No adnexal lesion is seen. Skeletal structures: The skeletal structures are osteopenic. There is moderate lumbosacral spondylosis. Moderate to advanced degenerative change is seen in the hips. No lytic or blastic lesions are seen. Soft tissues: There are numerous foci of soft tissue nodularity again seen in the gluteal tissues IMPRESSION: 1. There are no acute infectious or inflammatory findings in the abdomen or pelvis. 2. Multifocal hepatic metastatic disease has not appreciably changed from study performed 7 days ago. 3. Again seen is a mesenteric lesion with surrounding desmoplastic reaction and tiny mesenteric lymph nodes is also unchanged. This is typical in appearance for metastatic carcinoid tumor and also unchanged. 4. Intra and extrahepatic biliary ductal dilatation is similar to previous. 5. 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 6. Numerous round foci of induration are identified within the gluteal fat. Correlate clinically for history of gluteal injections. 7. Additional findings as above. ACT 112: Negative or not required by law. Electronically signed by: Arsalan Matthew M.D. 09/06/2019 8:36 PM Dictated: 09/06/192028 Transcribed: 09/06/192028 ECG Data Indication: + weakness Rate (beats per minute): 60 Rhythm: + normal sinus ECG Intervals/blocks: + Normal QRS, + Normal MA and + Normal QT-c ECG ST segments: + Normal ST segments MDM Narrative 1730: Patient seen by resident physician Dr. Kelsie Biggs 1750: The patient was evaluated in room C2. A complete history and physical exam was performed. Patient started on Protonix and Protonix drip 2044: Vital signs stable. Labs show stable hemoglobin. CT shows no acute changes from previous CT. Patient will be admitted to the hospital given her advanced age and being on blood thinners. Discussed with Dr. Gurjit Hoffman hospitalist who accepted admission Impression & Plan GIB (gastrointestinal bleeding) Discharge Plan Visit Data Chief Complaint: GI Assessment Stated Complaint: BLEEDING FROM BOWEL ED Provider: Leandro Valenzuela ED Midlevel Provider: Shin Hughes Discharge Problem: GIB (gastrointestinal bleeding) Patient Disposition: Being Evaluated by Hospitalist Forms Stand Alone Forms: [facility] [employer] Prescriptions Prescriptions: No Action Somatuline [place] 120 mg/0.5 mL syringe 0 mg SQ MONTHLY RF: 0 acetaminophen [Tylenol] 325 mg tablet 325 mg PO Q6H PRN (Reason: pain/fever) RF: 0 cholecalciferol (vitamin D3) [Vitamin D3] 2,000 unit Capsule 2,000 units PO QAM RF: 0 albuterol sulfate 90 mcg/actuation aerosol powdr breath activated 2 puffs INH Q6H PRN (Reason: shortness of breath or wheezing) Qty: 1 RF: 1 Eliquis 5 mg Tablet 5 mg PO BID 30 Days Qty: 60 RF: 0 amiodarone 200 mg Tablet 200 mg PO QAM 30 Days Qty: 30 RF: 0 amlodipine [Norvasc] 5 mg Tablet 2.5 mg PO QAM 30 Days Qty: 15 RF: 0 metoprolol succinate 25 mg Tablet Extended Release 24 Hr 25 mg PO QAM 30 Days Qty: 30 RF: 0 polyethylene glycol 3350 [Miralax] 17 gram Powder In Packet 17 g PO DAILY 30 Days Qty: 30 RF: 0 Referrals Referrals: Genia Cullen DO [Primary Care Provider] - Discharge Problem: GIB (gastrointestinal bleeding) Qualifiers: GI bleed type/associated pathology: unspecified gastrointestinal hemorrhage type Qualified Code(s): K92.2 - Gastrointestinal hemorrhage, unspecified
[2019-09-06] MEDS ORDERED: IOVERSOL 100ml IV PRN (20:12)
--- NOTE | 2019-09-06 20:38 | CT Scan Report ---
CT SCAN OF THE ABDOMEN AND PELVIS WITH IV CONTRAST CLINICAL HISTORY: Generalized abdominal pain. GI bleeding. Carcinoid tumor. COMPARISON STUDY: Abdominal CT dated 08/30/2019 and 07/21/2019. TECHNIQUE: Following the IV administration of 94 cc of Optiray 320, CT scan of the abdomen and pelvi s is performed from the lung bases to the proximal femora. Images are reviewed in the axial, sagittal , and coronal planes. IV contrast was administered without complication. A dose lowering technique wa s utilized adhering to the principles of ALARA. CT DOSE: 283.92 mGy.cm FINDINGS: Lung bases: The heart is normal in size and without pericardial effusion. A 3 mm left lower lobe pulm onary nodule is seen on image #14. This is unchanged from 2016. The lung bases are otherwise clear no ting bibasilar scarring/atelectasis. Liver: The contrast-enhanced liver is normal in size, contour, and attenuation. There is mild to mode rate intrahepatic biliary ductal dilatation. The hepatic veins and portal veins are patent. Findings multifocal hepatic metastatic disease is similar to previous. Gallbladder: Surgically absent noting clips in the gallbladder fossa. Spleen: Normal in size and attenuation. Pancreas: Atrophic and grossly unremarkable. Adrenal glands: Unremarkable. Kidneys: The contrast enhanced kidneys are normal in size and without hydronephrosis. The kidneys enh ance symmetrically. Abdominal vasculature: The abdominal aorta is normal in course and caliber noting moderate to advance d atherosclerotic calcification. There is high-grade stenosis of the superior mesenteric artery seen on image #109. There is approximately 50% stenosis of the right common iliac artery. Bowel: There is no bowel obstruction. Enteric contrast reaches the transverse colon. Moderate constip ation is observed. Postoperative change is noted in the small bowel in the upper pelvis. The appendix is not identified and reported surgically absent. Peritoneum: There is no intraperitoneal free air or abdominal ascites. There is a 2.6 cm nodule/lesio n in the lower mesentery seen on image #233. There is associated desmoplastic reaction and this is ty pical appearance for a small carcinoid. There are numerous surrounding subcentimeter mesenteric lymph nodes. Lymphadenopathy: There are numerous small mesenteric lymph nodes as above.. Pelvic viscera: The bladder is normal as visualized. The uterus is surgically absent. No adnexal lesi on is seen. Skeletal structures: The skeletal structures are osteopenic. There is moderate lumbosacral spondylosi s. Moderate to advanced degenerative change is seen in the hips. No lytic or blastic lesions are seen . Soft tissues: There are numerous foci of soft tissue nodularity again seen in the gluteal tissues IMPRESSION: 1. There are no acute infectious or inflammatory findings in the abdomen or pelvis. 2. Multifocal hepatic metastatic disease has not appreciably changed from study performed 7 days ago. 3. Again seen is a mesenteric lesion with surrounding desmoplastic reaction and tiny mesenteric lymph nodes is also unchanged. This is typical in appearance for metastatic carcinoid tumor and also uncha nged. 4. Intra and extrahepatic biliary ductal dilatation is similar to previous. 5. 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 6. Numerous round foci of induration are identified within the gluteal fat. Correlate clinically for history of gluteal injections. 7. Additional findings as above. ACT 112: Negative or not required by law. Electronically signed by: Arsalan Matthew M.D. 09/06/2019 8:36 PM
[2019-09-07] MEDS ORDERED: ACETAMINOPHEN 325 MG TAB PO PRN
[2019-09-07] MEDS ORDERED: NITROGLYCERIN SL 0.4 MG/TAB TAB SL PRN
[2019-09-07] MEDS ORDERED: SODIUM CHLORIDE 0.9% 1000ML 1,000 ML IV SCH
[2019-09-07] MEDS ORDERED: LORATADINE 10 MG TAB PO PRN
[2019-09-07] MEDS ORDERED: ONDANSETRON INJ 2 MG/ML 2 ML VIAL IV PRN
[2019-09-07] MEDS ORDERED: ALBUTEROL HFA 8 GM INHALER INH PRN (00:03)
--- NOTE | 2019-09-07 00:52 | History and Physical Report ---
DATE OF ADMISSION: 09/06/2019 CHIEF COMPLAINT: Rectal bleed. 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 The patient says she has few episodes of rectal bleed since today afternoon. There is quite a bit of blood and she also had an episode in the ER. Denies any abdominal pain, no nausea, no vomiting. Currently, resting comfortably and hemodynamically stable. Denies any other complaints. Ambulating okay. Appetite is okay. No headache, no dizziness, no blurred vision, no earache, no runny nose, no sore throat, no cough, no chest pain, no shortness of breath. She is always dizzy. No rash. She was recently in the hospital and admitted on 08/26/2019 and got discharged on 08/30/2019. At that time, she had AFib with RVR and wide complex tachycardia with supraventricular tachycardia with aberrant conduction with heart rates in like 230s, non-ST elevated OR status post cardiac catheterization and coronaries were clean. She was discharged on oral amiodarone, metoprolol, and Eliquis. She is also status post placement of implantable loop recorder and she had followup appointment today with cardiology and everything was okay and she will again follow up within 2 months. ALLERGIES: NUTS, ASPIRIN, CELECOXIB, CODEINE, MORPHINE, LATEX, CAFFEINE, MIDAZOLAM, FENTANYL, LORAZEPAM. PAST MEDICAL HISTORY: As mentioned above. PAST SURGICAL HISTORY: Drainage of anal abscess, removal of adenoids, appendectomy, total abdominal hysterectomy with removal of tubes. MEDICATIONS: Currently the patient is on Tylenol 1000 mg p.o. a.m. and at bedtime, albuterol 2 puffs inhalation q. 6 hours p.r.n., amiodarone 200 mg p.o. daily, amlodipine 2.5 mg p.o. a.m., Eliquis 5 mg p.o. b.i.d., vitamin D 2000 units p.o. a.m., lanreotide 120 mg subcutaneous monthly, Claritin 10 mg p.o. daily p.r.n., metoprolol succinate 25 mg p.o. a.m., MiraLax 17 grams p.o. daily. FAMILY HISTORY: Significant for sister has at 56, she had diabetes; brother had heart disorder, in his 30s; father had heart disorder, OR, at age of 49; mother had heart disorder, lung carcinoma, at age of 60. SOCIAL HISTORY: , lives with her and daughter. Passive smoking, smokes. No alcohol use, no drug use. REVIEW OF SYSTEMS: As per HPI. Rest of the review of systems negative. PHYSICAL EXAMINATION: GENERAL: The patient is of moderate build, not in acute distress. VITAL SIGNS: Temperature 37, pulse 71, respiratory rate 18, blood pressure 184/90, oxygen 98% on room air. HEENT: No pallor, no icterus. Pupils equal, round, reactive to light. NECK: No JVD, no neck masses. CARDIOVASCULAR: S1, S2 heard, regular rhythm, no murmur, no gallop. RESPIRATORY SYSTEM: Normal AP diameter. No accessory muscle use. No wheezing, no crackles. ABDOMEN: Soft, bowel sounds present. Mild abdominal discomfort. No guarding, no rigidity, no distention. CENTRAL NERVOUS SYSTEM: Cranial nerves II-XII grossly intact, nonfocal. EXTREMITIES: No edema, no erythema. LABORATORY DATA: WBC 5.6, hemoglobin 11.3, hematocrit 33.8, platelets 313. Sodium 142, potassium 4, chloride 112, CO2 of 24, BUN 10, creatinine 0.9, serum glucose 95, calcium 8.7, total bilirubin 0.7, AST 34, ALT 25, alkaline phosphatase 185. Lipase 56. IMAGING DATA: CT of the abdomen and pelvis with IV contrast shows no acute infectious or inflammatory findings in the abdomen and pelvis. Multifocal hepatic metastatic disease has not appreciably changed from the study performed 7 days ago. Mesenteric lesion with surrounding desmoplastic reaction and tiny mesenteric lymph nodes is also unchanged. Intrahepatic and extrahepatic biliary ductal dilatation is similar to previous. 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 EKG: Normal sinus rhythm, rate of 60, incomplete right bundle branch block, nonspecific ST-T abnormalities. QTC of 472. ASSESSMENT AND PLAN: This is a 74-year-old female who presents with rectal bleed. 1. Rectal bleed. Has blood per rectum, several episodes today, but hemoglobin is stable at 11.3, on Eliquis, which we will hold. ER have started on Protonix drip, which we will continue for now. Blood consent obtained. We will follow the repeat labs and consult GI in the a.m. We will keep her n.p.o. and on gentle fluids. 2. Recent history of supraventricular tachycardia, wide complex tachycardia, status post transplant of implantable loop recorder. Was checked today in the cardiology office and it was okay. 3. History of atrial fibrillation, rate controlled with amiodarone and Toprol-XL. Holding Eliquis for gastrointestinal bleed. 4. History of metastatic carcinoid tumor of abdomen with hepatic metastatic disease, carcinoid syndrome. Follows with hematology/oncology, on lanreotide shots monthly, supposed to get tomorrow morning. 5. Hypertension, on Norvasc and Toprol-XL, will monitor the blood pressure. 6. History of coronary vasospasm. Continue amlodipine. 7. History of osteoarthritis, on Tylenol. 8. History of thoracic ascending aortic aneurysm, 4.5 cm on recent outpatient PET scan, it was 4.[address] scan done last admission. Follow up as outpatient. 9. Deep venous thrombosis prophylaxis, sequential compression devices for now. 10. Disposition: Admit to tele floor. Expect to discharge home and follow with the family doctor. Level 1 full code. MTDD
[2019-09-07] MEDS: PANTOprazole 40 MG in DEXTROSE 5% 100 ML IV SCH ×5 (01:06→19:26)
[2019-09-07 05:57] LABS: Basophils # (auto) 0.02 K/uL (0-0.2); Basophils % (auto) 0.3 %; Eosinophils # (auto) 0.06 K/uL (0-0.5); Hematocrit (blood only) 35.1 % (37-47); Immature Granulocytes # (auto) 0.02 K/uL (0.00-0.02); Immature Granulocytes % (auto) 0.3 %; Lymphocytes # (auto) 1.02 K/uL (1.2-3.4); Lymphocytes % (auto) 17.4 %; Mean Corpuscular Hemoglobin 33.1 pg (25-34); Mean Corpuscular Hgb Conc 34.2 g/dL (32-36); Mean Platelet Volume 11.3 fL (7.4-10.4); Monocytes # (auto) 0.31 K/uL (0.11-0.59); Monocytes % (auto) 5.3 %; Neutrophils # (auto) 4.44 K/uL (1.4-6.5); Neutrophils % (auto) 75.7 %; Platelet Count 237 K/uL (130-400); RDW Coefficient of Variation 14.6 % (11.5-14.5); RDW Standard Deviation 51.7 fL (36.4-46.3); Red Blood Count 3.62 M/uL (4.2-5.4); White Blood Count 5.87 K/uL (4.8-10.8)
[2019-09-07 06:31] LABS: BUN Creatinine Ratio 7.3 (10-20); Calcium 8.8 mg/dl (8.5-10.1); Creatinine Clr Calc Pharmacy 46.8 ml/min; Est GFR (African American) 68.4
[2019-09-07 07:17] LABS: Potassium 3.9 mmol/L (3.5-5.1)
[2019-09-07 07:21] LABS: Magnesium 2.3 mg/dl (1.8-2.4)
[2019-09-07] MEDS: AMLODIPINE BESYLATE 5 MG TAB PO SCH (08:22)
[2019-09-07] MEDS: METOPROLOL SUCC 25MG EXT REL TAB PO SCH (08:23)
[2019-09-07] MEDS: AMIODARONE 200 MG TAB PO SCH (08:23)
[2019-09-07 10:54] LABS: Hematocrit (blood only) 35.5 % (37-47); Hemoglobin 11.7 g/dL (12.0-16.0)
--- NOTE | 2019-09-07 13:13 | Gastrointestinal Consultation ---
Date of Consultation September 07, 2019 Assessment & Plan (1) Rectal bleeding: This is a 74 y/o female with PMHx metastatic carcinoid tumor of the abdomen, a-fib on Eliquis, and others below, admitted with several episodes of rectal bleeding. CT with moderate stool burden, no acute changes. She's had 1 since admission; HGB remains stable, VSS stable. Abd is soft, pt with no other complaints. Etiology of bleeding unclear, but may reflect diverticular bleed, AVM, hemorrhoid, or perhaps a sinister pathology such as malignancy given her history. - Discussed obtaining EGD/colonoscopy with pt, though she did become quite upset and tearful and was not inclined to proceed, stating "It's just one thing after another." She tells me she's been overwhelmed by her medical problems of late. In reviewing her labs, hypernatremia noted and she has other co-morbidities (including cardiac) which would require stabilization/clearance prior to pursuing endoscopy. Therefore, it was agreed by pt and myself that perhaps the best option would be to defer endoscopy for now, given her stable HGB and little GI output. She should be agreeable or should bleeding continue, certainly EGD/colonoscopy can be arranged as an outpt. - Would initiate bowel regimen with fiber/Miralax for stool burden and for episodes of constipation - GI will sign off Thank you for allowing us to participate in the care of this patient. Please call with any acute changes, questions or concerns. Please see addendum below with additional recommendation from my supervising physician. Supervising Physician Co-Signing Physician Notes The patient has multiple medical issues and she is not wanting any scopes. Her rectal bleeding has slowed down, she has remained hemodynamically stable, and without a significant hgb drop or bun rise. I have a low suspicion she has an ugi source. Given her age- diverticular bleed is likely and her imaging does show a stenosis of the sma. She has no belly pain or signs of ischemic colitis clinically. Given likely low yield of scopes, would opt for conservative mgmt for now. GI will sign off. Ok to change IV PPI to once daily. History of Present Illness Reason for Consultation: rectal bleed Attending Physician: Renu Ames MD History of Present Illness This is a 74 y/o female pt with PMHx metastatic carcinoid tumor of the abdomen with hepatic mets, carcinoid syndrome (follows with heme/onc on lanreotide), h/o perirectal abscess and fistula s/p drainage and seton placement, HTN, a-fib on Eliquis (started last week), recent episode of wide complex tachycardia, who was admitted with several episodes of BRBPR with BMs. HGB on arrival 11.3, BUN 10, cr 0.9, plts 313, LFTs WNL. CTAP without acute findings. Eliquis was held and pt placed on IV PPI, made NPO, given IVF. She had one more episode this AM. HGB today stable at 11.7, BUN 7, HD stable. Hypernatremia noted at 149. Pt feels ok today; typically stools occur regularly, are soft, brown; occasionally gets constipated with straining. Denies abd pain, hematemesis, n/v, melena, abd bloating, gas, heartburn, dysphagia, change in appetite, chest pain, dyspena, cough, fever. Chart notes last colonoscopy > 10 years ago, I'm unable to find record in [email or web address] or [employer]. No fam hx GI malignancy Allergies Allergy/AdvReac Type Severity Reaction Status Date / Time nut - unspecified Allergy Severe throat Verified 09/06/19 21:20 swelling aspirin Allergy Intermediate "ASTHMA" Verified 09/06/19 21:20 celecoxib Allergy Intermediate "ASTHMA Verified 09/06/19 21:20 ATTACK" codeine Allergy Intermediate "FACE Verified 09/06/19 21:20 PUFFS UP" morphine Allergy Intermediate "FACE Verified 09/06/19 21:20 PUFFS UP" latex Allergy Mild RASH Verified 09/06/19 21:20 caffeine AdvReac Intermediate HEADACHE Verified 09/06/19 21:20 midazolam AdvReac Intermediate extreme Verified 09/06/19 21:20 anxiety fentanyl AdvReac Mild DELIRIUM Verified 09/06/19 21:20 lorazepam AdvReac Mild ANXIOUS Verified 09/06/19 21:20 Home Medications Home Medications Medication Instructions Recorded Confirmed Type cholecalciferol (vitamin D3) 2,000 units PO QAM 04/09/18 09/06/19 History [Vitamin D3] albuterol sulfate 2 puffs INH Q6H PRN #1 ea 08/15/18 09/06/19 Rx lanreotide 120 mg/0.5 mL 0 mg SQ MONTHLY ml 12/13/18 09/06/19 History subcutaneous syringe amiodarone 200 mg PO QAM 30 Days #30 tab 08/30/19 09/06/19 Rx amlodipine [Norvasc] 2.5 mg PO QAM 30 Days #15 tab 08/30/19 09/06/19 Rx apixaban [Eliquis] 5 mg PO BID 30 Days #60 tab 08/30/19 09/06/19 Rx metoprolol succinate 25 mg PO QAM 30 Days #30 tab 08/30/19 09/06/19 Rx polyethylene glycol 3350 [Miralax] 17 g PO DAILY 30 Days #30 ea 08/30/19 09/06/19 Rx acetaminophen [Tylenol Extra 1,000 mg PO AMHS 09/06/19 09/06/19 History Strength] loratadine [Claritin] 10 mg PO DAILY PRN 09/06/19 09/06/19 History Patient History Medical History Anal fistula (Chronic) Asthma (Chronic) NO INHALER Atrial fibrillation (Chronic) On Xarelto 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 [facility], Dr. Escalera. Receiving Sandostatin injection monthly. Chronic anticoagulation (Chronic) Coronary vasospasm (Chronic) Hemorrhoids (Chronic) Hyperlipidemia (Chronic) BORDERLINE Hypertension (Chronic) Interstitial cystitis (Chronic) Liver cancer (Chronic) Osteoarthritis (Chronic) Perirectal abscess (Chronic) Proctocolitis UTI (urinary tract infection) Surgical History History of cardiac cath (Chronic) [facility] 2016; "Normal coronary arteries." History of dilatation and curettage (Chronic) History of hysterectomy (Chronic) History of liver biopsy (Chronic) History of tonsillectomy and adenoidectomy (Chronic) History of tooth extraction (Chronic) S/P appendectomy (Chronic) S/P cholecystectomy (Chronic) Family History Sister Family history of diabetes mellitus Social History Preferred Language: Gu[place]ian Communication Ability: Effective [place] [employer] Required: No Beliefs That Will Affect Care: None marital status: Current Living Situation: Family Current Living Situation Comment: house Feels Safe at Home: Yes Safety Concerns: Feels Safe At This Time Smoking Status: Never smoker Second Hand Exposure: No ; Hx Alcohol Use: No Hx Substance Use: No Review of Systems Review of Systems: All systems reviewed & are unremarkable except as noted in HPI & below Physical Exam Constitutional: WD/WN, vitals as above no acute distress chronically ill Respiratory: normal respiratory effort, lungs clear to auscultation Cardiovascular: Rate/Rhythm: regular rate and regular rhythm Gastrointestinal (Abdomen): normal bowel sounds, soft, nontender, no hepatosplenomegaly Inspection/Auscultation: abdomen not distended Skin: no rashes, warm and dry Psychiatric: A+Ox3, euthymic affect Results & Data ([facility] [place]) Vital Signs (Past 12 Hours) Vital Signs Temp Pulse Pulse Resp BP Pulse Ox 09/07/19 12:02 36.8 C 63 20 145/75 H 98 09/07/19 07:25 67 09/07/19 06:42 36.3 C L 57 L 20 157/86 H 98 09/07/19 04:03 36.8 C 64 20 162/77 H 98 Laboratory Results 09/07/19 09/07/19 09/07/19 Range/Units 10:44 06:51 05:21 WBC (4.8-10.8) K/uL RBC (4.2-5.4) M/uL Hgb 11.7 L (12.0-16.0) g/dL Hct 35.5 L (37-47) % MCV (80-100) fL MCH (25-34) pg MCHC (32-36) g/dL RDW Std Deviation (36.4-46.3) fL RDW Coeff of Myra (11.5-14.5) % Plt Count (130-400) K/uL MPV (7.4-10.4) fL Immature Gran % (Auto) % Neut % (Auto) % Lymph % (Auto) % [place] % (Auto) % Eos % (Auto) % Baso % (Auto) % Neut # (Auto) (1.4-6.5) K/uL Lymph # (Auto) (1.2-3.4) K/uL [place] # (Auto) (0.11-0.59) K/uL Eos # (Auto) (0-0.5) K/uL Baso # (Auto) (0-0.2) K/uL Immature Gran # (Auto) (0.00-0.02) K/uL PT INR APTT PTT Ratio Sodium 149 H (136-145) mmol/L Potassium 3.9 (3.5-5.1) mmol/L Chloride 117 H (98-107) mmol/L Carbon Dioxide 24 (21-32) mmol/L Anion Gap 7.0 (3-11) BUN 7 (7-18) mg/dl Creatinine 0.95 (0.6-1.2) mg/dl Est Cr Clr Drug Dosing 46.8 Est GFR ( Amer) 68.4 Est GFR (Non-Af Amer) 59.0 BUN/Creatinine Ratio 7.3 L (10-20) Glucose 123 H (70-99) mg/dl POC Lactic Acid Sebas (0.90-1.70) mmol/L Calcium 8.8 (8.5-10.1) mg/dl Magnesium 2.3 (1.8-2.4) mg/dl Total Bilirubin (0.2-1) mg/dl Direct Bilirubin (0-0.2) mg/dl AST (15-37) U/L ALT (12-78) U/L Alkaline Phosphatase (45-117) U/L Total Protein (6.4-8.2) gm/dl Albumin (3.4-5.0) gm/dl Lipase (73-393) U/L 09/07/19 09/06/19 09/06/19 Range/Units 05:21 19:35 18:30 WBC 5.87 (4.8-10.8) K/uL RBC 3.62 L (4.2-5.4) M/uL Hgb 12.0 (12.0-16.0) g/dL Hct 35.1 L (37-47) % MCV 97.0 (80-100) fL MCH 33.1 (25-34) pg MCHC 34.2 (32-36) g/dL RDW Std Deviation 51.7 H (36.4-46.3) fL RDW Coeff of Myra 14.6 H (11.5-14.5) % Plt Count 237 (130-400) K/uL MPV 11.3 H (7.4-10.4) fL Immature Gran % (Auto) 0.3 % Neut % (Auto) 75.7 % Lymph % (Auto) 17.4 % [place] % (Auto) 5.3 % Eos % (Auto) 1.0 % Baso % (Auto) 0.3 % Neut # (Auto) 4.44 (1.4-6.5) K/uL Lymph # (Auto) 1.02 L (1.2-3.4) K/uL [place] # (Auto) 0.31 (0.11-0.59) K/uL Eos # (Auto) 0.06 (0-0.5) K/uL Baso # (Auto) 0.02 (0-0.2) K/uL Immature Gran # (Auto) 0.02 (0.00-0.02) K/uL PT INR APTT PTT Ratio Sodium 142 (136-145) mmol/L Potassium 4.0 (3.5-5.1) mmol/L Chloride 112 H (98-107) mmol/L Carbon Dioxide 24 (21-32) mmol/L Anion Gap 6.0 (3-11) BUN 10 (7-18) mg/dl Creatinine 0.96 (0.6-1.2) mg/dl Est Cr Clr Drug Dosing Not Reportable Est GFR ( Amer) 67.5 Est GFR (Non-Af Amer) 58.3 BUN/Creatinine Ratio 10.1 (10-20) Glucose 95 (70-99) mg/dl POC Lactic Acid Sebas 1.09 (0.90-1.70) mmol/L Calcium 8.7 (8.5-10.1) mg/dl Magnesium (1.8-2.4) mg/dl Total Bilirubin 0.3 (0.2-1) mg/dl Direct Bilirubin (0-0.2) mg/dl AST 34 (15-37) U/L ALT 25 (12-78) U/L Alkaline Phosphatase 195 H (45-117) U/L Total Protein 7.7 (6.4-8.2) gm/dl Albumin 3.3 L (3.4-5.0) gm/dl Lipase 56 L (73-393) U/L 09/06/19 09/06/19 Range/Units 18:30 18:30 WBC 5.65 (4.8-10.8) K/uL RBC 3.55 L (4.2-5.4) M/uL Hgb 11.3 L (12.0-16.0) g/dL Hct 33.8 L (37-47) % MCV 95.2 (80-100) fL MCH 31.8 (25-34) pg MCHC 33.4 (32-36) g/dL RDW Std Deviation 50.1 H (36.4-46.3) fL RDW Coeff of Myra 14.4 (11.5-14.5) % Plt Count 313 (130-400) K/uL MPV 10.1 (7.4-10.4) fL Immature Gran % (Auto) 0.2 % Neut % (Auto) 69.8 % Lymph % (Auto) 20.7 % [place] % (Auto) 6.7 % Eos % (Auto) 2.1 % Baso % (Auto) 0.5 % Neut # (Auto) 3.94 (1.4-6.5) K/uL Lymph # (Auto) 1.17 L (1.2-3.4) K/uL [place] # (Auto) 0.38 (0.11-0.59) K/uL Eos # (Auto) 0.12 (0-0.5) K/uL Baso # (Auto) 0.03 (0-0.2) K/uL Immature Gran # (Auto) 0.01 (0.00-0.02) K/uL PT Cancelled INR Cancelled APTT Cancelled PTT Ratio Cancelled Sodium (136-145) mmol/L Potassium (3.5-5.1) mmol/L Chloride (98-107) mmol/L Carbon Dioxide (21-32) mmol/L Anion Gap (3-11) BUN (7-18) mg/dl Creatinine (0.6-1.2) mg/dl Est Cr Clr Drug Dosing Est GFR ( Amer) Est GFR (Non-Af Amer) BUN/Creatinine Ratio (10-20) Glucose (70-99) mg/dl POC Lactic Acid Sebas (0.90-1.70) mmol/L Calcium (8.5-10.1) mg/dl Magnesium (1.8-2.4) mg/dl Total Bilirubin (0.2-1) mg/dl Direct Bilirubin (0-0.2) mg/dl AST (15-37) U/L ALT (12-78) U/L Alkaline Phosphatase (45-117) U/L Total Protein (6.4-8.2) gm/dl Albumin (3.4-5.0) gm/dl Lipase (73-393) U/L Diagnostic Findings CTAP: Lung bases: The heart is normal in size and without pericardial effusion. A 3 mm left lower lobe pulmonary nodule is seen on image #14. This is unchanged from 2016. The lung bases are otherwise clear noting bibasilar scarring/atelectasis. Liver: The contrast-enhanced liver is normal in size, contour, and attenuation. There is mild to moderate intrahepatic biliary ductal dilatation. The hepatic veins and portal veins are patent. Findings multifocal hepatic metastatic disease is similar to previous. Gallbladder: Surgically absent noting clips in the gallbladder fossa. Spleen: Normal in size and attenuation. Pancreas: Atrophic and grossly unremarkable. Adrenal glands: Unremarkable. Kidneys: The contrast enhanced kidneys are normal in size and without hydronephrosis. The kidneys enhance symmetrically. Abdominal vasculature: The abdominal aorta is normal in course and caliber noting moderate to advanced atherosclerotic calcification. There is high-grade stenosis of the superior mesenteric artery seen on image #109. There is approximately 50% stenosis of the right common iliac artery. Bowel: There is no bowel obstruction. Enteric contrast reaches the transverse colon. Moderate constipation is observed. Postoperative change is noted in the small bowel in the upper pelvis. The appendix is not identified and reported surgically absent. Peritoneum: There is no intraperitoneal free air or abdominal ascites. There is a 2.6 cm nodule/lesion in the lower mesentery seen on image #233. There is associated desmoplastic reaction and this is typical appearance for a small carcinoid. There are numerous surrounding subcentimeter mesenteric lymph nodes. Lymphadenopathy: There are numerous small mesenteric lymph nodes as above.. Pelvic viscera: The bladder is normal as visualized. The uterus is surgically absent. No adnexal lesion is seen. Skeletal structures: The skeletal structures are osteopenic. There is moderate lumbosacral spondylosis. Moderate to advanced degenerative change is seen in the hips. No lytic or blastic lesions are seen. Soft tissues: There are numerous foci of soft tissue nodularity again seen in the gluteal tissues IMPRESSION: 1. There are no acute infectious or inflammatory findings in the abdomen or pelvis. 2. Multifocal hepatic metastatic disease has not appreciably changed from study performed 7 days ago. 3. Again seen is a mesenteric lesion with surrounding desmoplastic reaction and tiny mesenteric lymph nodes is also unchanged. This is typical in appearance for metastatic carcinoid tumor and also unchanged. 4. Intra and extrahepatic biliary ductal dilatation is similar to previous. 5. 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 6. Numerous round foci of induration are identified within the gluteal fat. Correlate clinically for history of gluteal injections. 7. Additional findings as above.
--- NOTE | 2019-09-07 15:09 | Hospitalist Progress Note ---
Date of Service September 07, 2019 Assessment & Plan (1) Rectal bleeding: Patient presented with bright red blood per rectum No further episodes since admission H&H remained stable at 11 Stable vitals Appreciate input from GI Patient is very reluctant to have any procedure: EGD or colonoscopy Given no active GI bleeding, stable H&H and vitals GI recommends to advance diet to solid Can be discharged home tomorrow-if no further GI bleed Outpatient follow-up with gastroenterology team if patient considers EGD and colonoscopy evaluation Carcinoid tumor: With widespread mets to liver, mesenteries There is a concern for possible 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, which can give patients postpharyngeal abdominal pain, Patient is advised for small frequent portion avoid large meals Disposition: Observe overnight, will be discharged home in a.m.if no further GI bleed Admission and Anticipated Discharge Date Admission Date: September 06, 2019 Subjective No further episode of bleeding per rectum, No abdominal pain no nausea vomiting Evaluated by GI team, Patient refuses for EGD colonoscopy, Diet advanced Stable H&H, Will observe on telemetry overnight, if no episode of GI bleed plan to discharge home tomorrow Review of Systems Review of Systems: All systems reviewed & are unremarkable except as noted in HPI & below Gastrointestinal: no abdominal pain, no nausea, no vomiting, no diarrhea/loose stools and no blood in stools Physical Exam Constitutional: WD/WN, vitals as above no acute distress Eyes: PERRL, conjunctivae normal, anicteric sclerae ENMT: external ear and nose normal, oropharynx normal Neck: trachea midline, no thyromegaly Respiratory: normal respiratory effort, lungs clear to auscultation Cardiovascular: RRR, no murmur, no edema Gastrointestinal (Abdomen): normal bowel sounds, soft, nontender, no hepatosplenomegaly Musculoskeletal: no cyanosis or clubbing, extremities motor strength 5/5 Skin: no rashes, warm and dry Neurologic: PERRL, EOMI, accommodation nl, no face palsy, no dysarthria Psychiatric: A+Ox3, euthymic affect Results & Data Results & Data ([facility]) Vital Signs (Past 12 Hours) Vital Signs Temp Pulse Pulse Resp BP Pulse Ox 09/07/19 15:04 53 L 09/07/19 14:52 36.5 C 51 L 18 125/72 98 07/10/20 12:02 36.8 C 63 20 145/75 H 98 09/07/19 07:25 67 09/07/19 06:42 36.3 C L 57 L 20 157/86 H 98 09/07/19 04:03 36.8 C 64 20 162/77 H 98
[2019-09-07 17:16] LABS: Hematocrit (blood only) 34.3 % (37-47); Hemoglobin 11.2 g/dL (12.0-16.0)
[2019-09-08] MEDS: PANTOprazole 40 MG in DEXTROSE 5% 100 ML IV SCH ×2 (01:31→06:38)
--- NOTE | 2019-09-08 07:01 | Electrocardiogram Report ---
Test Reason : Blood Pressure : / mmHG Vent. Rate : 060 BPM Atrial Rate : 060 BPM P-R Int : 162 ms QRS Dur : 114 ms QT Int : 472 ms P-R-T Axes : 086 016 096 degrees QTc Int : 472 ms Normal sinus rhythm Incomplete left bundle block Nonspecific ST and T wave abnormality Prolonged QT Abnormal ECG When compared with ECG of 28-AUG-2019 06:55, Nonspecific T wave abnormality now evident in Lateral leads Confirmed by Nikko Bethea ([id number]) on 09/08/2019 7:01:12 AM Referred By: REFERRED SELF Confirmed By:Nikko Bethea
[2019-09-08] MEDS: AMLODIPINE BESYLATE 5 MG TAB PO SCH (08:09)
[2019-09-08] MEDS: AMIODARONE 200 MG TAB PO SCH (08:10)
[2019-09-08] MEDS: METOPROLOL SUCC 25MG EXT REL TAB PO SCH (08:10)
--- NOTE | 2019-09-08 17:44 | Discharge Summary ---
Date of Service September 08, 2019 Admission HPI Per Admitting Provider [facility], [place] DICTATED BY: Yonatan Cagle MD DATE OF ADMISSION: 09/06/2019 CHIEF COMPLAINT: Rectal bleed. 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 The patient says she has few episodes of rectal bleed since today afternoon. There is quite a bit of blood and she also had an episode in the ER. Denies any abdominal pain, no nausea, no vomiting. Currently, resting comfortably and hemodynamically stable. Denies any other complaints. Ambulating okay. Appetite is okay. No headache, no dizziness, no blurred vision, no earache, no runny nose, no sore throat, no cough, no chest pain, no shortness of breath. She is always dizzy. No rash. She was recently in the hospital and admitted on 08/26/2019 and got discharged on 08/30/2019. At that time, she had AFib with RVR and wide complex tachycardia with supraventricular tachycardia with aberrant conduction with heart rates in like 230s, non-ST elevated MT status post cardiac catheterization and coronaries were clean. She was discharged on oral amiodarone, metoprolol, and Eliquis. She is also status post placement of implantable loop recorder and she had followup appointment today with cardiology and everything was okay and she will again follow up within 2 month Principal Diagnosis bleeding per rectum : resolved Carcinoid tumor with metastasis Afib Discharge Exam Constitutional WD/WN, vitals as above no acute distress Eyes PERRL, conjunctivae normal, anicteric sclerae ENMT external ear and nose normal, oropharynx normal Neck trachea midline, no thyromegaly Respiratory normal respiratory effort, lungs clear to auscultation Cardiovascular RRR, no murmur, no edema Gastrointestinal (Abdomen) normal bowel sounds, soft, nontender, no hepatosplenomegaly Musculoskeletal no cyanosis or clubbing, extremities motor strength 5/5 Skin no rashes, warm and dry Neurologic PERRL, EOMI, accommodation nl, no face palsy, no dysarthria Psychiatric A+Ox3, euthymic affect Discharge Data Allergies Allergy/AdvReac Type Severity Reaction Status Date / Time nut - unspecified Allergy Severe throat Verified 09/06/19 21:20 swelling aspirin Allergy Intermediate "ASTHMA" Verified 09/06/19 21:20 celecoxib Allergy Intermediate "ASTHMA Verified 09/06/19 21:20 ATTACK" codeine Allergy Intermediate "FACE Verified 09/06/19 21:20 PUFFS UP" morphine Allergy Intermediate "FACE Verified 09/06/19 21:20 PUFFS UP" latex Allergy Mild RASH Verified 09/06/19 21:20 caffeine AdvReac Intermediate HEADACHE Verified 09/06/19 21:20 midazolam AdvReac Intermediate extreme Verified 09/06/19 21:20 anxiety fentanyl AdvReac Mild DELIRIUM Verified 09/06/19 21:20 lorazepam AdvReac Mild ANXIOUS Verified 09/06/19 21:20 Consultations 09/06/19 20:43 ED Decision to Admit Stat 09/07/19 00:00 Consult Case Management - Discharge Planning Routine 09/07/19 08:00 Consult Gastroenterology Routine Ordered Studies 09/06/19 18:28 CT abd pelvis IV con only Stat Hospital Course (1) Rectal bleeding: Patient presented with bright red blood per rectum No further episodes since admission H&H remained stable at 11 Stable vitals Appreciate input from GI Patient is very reluctant to have any procedure: EGD or colonoscopy Given no active GI bleeding, stable H&H and vitals GI recommends to advance diet to solid No further episode of GI bleed H&H remained stable, patient is discharged home today Outpatient follow-up with gastroenterology team if patient considers EGD and colonoscopy evaluation Carcinoid tumor: With widespread mets to liver, mesenteries There is a concern for possible 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, which can give patients postpharyngeal abdominal pain, Patient is advised for small frequent portion avoid large meals Disposition: Discharged home today Total Time Total Time Spent Total Time Spent (In Minutes): 35 minutes Total Time Includes: Examination of the Patient, Discharge Planning and Medication Reconciliation Discharge Plan Discharge Items Patient Disposition: Home - Self-Care Reason For Visit: RECTAL BLEED Discharge Diagnosis: bleeding per rectum : resolved Carcinoid tumor with metastasis Afib Activity: Resume your previous activity Non-emergency contact: Primary Care Provider Call non-emergency contact if: you have any medication questions Follow-up/Referrals: Genia Cullen, [Primary Care Provider] - Julia Gross M.D. [Hospitalist] - Diet: Heart Healthy Addtl Attending Provider Instructions: DO NOT TAKE , MOTRIN , ALEVE , NAPROXEN , IBUPROFEN , ADVIL NEED FOLLOW UP WITH GASTROENTROLOGY IN 2-3 WEEKS FOR EGD AND COLONOSCOPY Pending Studies at Discharge: No Stand-Alone Forms: My [facility] NCR [employer], Smoking Cessation Medications and DC Order Prescriptions: New pantoprazole [Protonix] 40 mg tablet,delayed release (DR/EC) 40 mg PO DAILY Qty: 30 RF: 3 Continued Somatuline [place] 120 mg/0.5 mL syringe 0 mg SQ MONTHLY RF: 0 cholecalciferol (vitamin D3) [Vitamin D3] 2,000 unit Capsule 2,000 units PO QAM RF: 0 acetaminophen [Tylenol Extra Strength] 500 mg Tablet 1,000 mg PO AMHS RF: 0 loratadine [Claritin] 10 mg Tablet 10 mg PO DAILY PRN (Reason: ALLERGIES) RF: 0 albuterol sulfate 90 mcg/actuation aerosol powdr breath activated 2 puffs INH Q6H PRN (Reason: shortness of breath or wheezing) Qty: 1 RF: 1 Eliquis 5 mg Tablet 5 mg PO BID 30 Days Qty: 60 RF: 0 amiodarone 200 mg Tablet 200 mg PO QAM 30 Days Qty: 30 RF: 0 amlodipine [Norvasc] 5 mg Tablet 2.5 mg PO QAM 30 Days Qty: 15 RF: 0 metoprolol succinate 25 mg Tablet Extended Release 24 Hr 25 mg PO QAM 30 Days Qty: 30 RF: 0 polyethylene glycol 3350 [Miralax] 17 gram Powder In Packet 17 g PO DAILY 30 Days Qty: 30 RF: 0 Discharge Orders: Discharge Order (Routine); Ordered 09/08/19 Ordered By: Renu Mariscal/Other Patient Handouts: Pantoprazole tablets Admission Data Admit Date/Time: 09/06/19 22:21 Attending Provider: Renu Ames Admit Provider: Yonatan Cagle Primary Care Provider: Genia Cullen Other Providers: Yonatan Cagle ; Tawana Joy ; Lurdes Badillo ; Taryn Blandon ; Tamika Hsu ; Vivek Power ; Ahsan Montilla ; Cameron Schaefer ; Tiffany Gómez ; Cristobal Howard ; Joselito Torres ; Marisol Anderson ; Shannon Busby ; Marlen Del Angel ; Julia Gross ; Scot Ragland Other Interventions: Discharge Summary Assessment (RN) Last Done: 09/08/19 10:04 DC Date/Time DO NOT enter until pt leaves facility: 09/08/19 12:01
== END 2019-09-08 12:01 | disposition home health service (06) | DRG 377 ==
LOC: ED 17:14 → 2S 22:21

== ENCOUNTER 2020-10-16 10:19 | Inpatient (IN) ==
--- NOTE | 2020-10-16 11:22 | Emergency Department Note ---
Impression & Plan Acute UTI, Near syncope ED Provider Note Provider: Renaldo Bernard MD DATE OF SERVICE: 10/16/2020 CHIEF COMPLAINT: Near syncope HISTORY OF PRESENT ILLNESS: Patient is a 75-year-old female history of prediabetes, arrhythmia/atrial fibrillation currently on Eliquis and amiodarone, hypertension, and neuroendocrine carcinomas presenting here today via ambulance from home after near syncopal episode. Patient and daughter who is present state that over the past several weeks the patient's had multiple episodes of feeling weak and dizzy particularly with any kind of activity such as walking. Today patient states she went to make some breakfast and was doing this in the kitchen and felt generally weak and had to sit down and lower her head. She denies losing consciousness. Patient states she has had some intermittent left- sided breast pain the last several days but denies it currently. Patient states she is feeling improved now and not as weak. States she has had some issues with her blood pressure. Denies any significant abdominal pain or nausea or vomiting. Patient relays she will often feel unwell when she has bowel movements and they have been a little bit more liquidy. Patient states this was the worst episode but this is in a similar vein to the last several weeks when she has been having these episodes. States has been laying in bed more often. Patient denies any fever chills at home. Patient states she is not currently on chemotherapy. No trauma or falls reported. REVIEW OF SYSTEMS: A total of 10 review of systems was obtained and negative except as stated above in the HPI. PAST MEDICAL HISTORY: As noted above MEDICATIONS: Reviewed home medications SOCIAL HISTORY: Lives at home with PHYSICAL EXAM: GENERAL: alert and oriented in no acute distress on stretcher Head: normocephalic and atraumatic EYES: No injection, discharge or icterus. NECK: Trachea midline. ENT: Mucous membranes pink and moist. LUNGS: Airway patent. No retractions. Breath sounds clear HEART: Regular rate and rhythm. No chest wall tenderness ABDOMEN: Soft and non-tender, without guarding or rebound. SKIN: Acyanotic, warm, dry EXTREMITIES: Without significant tenderness or deformity. NEUROLOGICAL: No focal deficits. No aphasia. No facial droop or slurred speech. Sensation to gross touch normal. EK bpm sinus rhythm with PVC. No acute ST segment elevation noted with some lateral T wave flattening. QTc 425. CONTINUOUS CARDIAC MONITORING: was ordered and showed a heart rate of 50s to 70s bpm in sinus rhythm to sinus bradycardia with occasional PVC Patient's laboratory studies and imaging reviewed. Differential includes Infection, dehydration, metabolic abnormality, hypo/hyperglycemia, electrolyte disturbance, anemia, hypoxia, cardiac sources, intracerebral event, toxicologic, neurologic, as well as other pathologies. IMPRESSION/MEDICAL DECISION MAKING: Patient presents with multiple episodes of near syncope over the past several we eks. No actual LOC and no fall/trauma reported. Given anticoagulation CT head complete without acute and cranial finding nonfocal deficit concerning for stroke. Benign abdomen here. Not having active chest pain. EKG obtained and troponin is undetectable. Lower suspicion this is ACS although cannot positively exclude cardiac Arrhythmia. Urine does appear concerning for infection. Slight leukocytosis noted. Slight fever here initially and the patient does report feeling chilly although this has been an ongoing issue. Covered with Rocephin for possible UTI. Prior microbiology reviewed pansensitive. Discussed with patient and daughter at bedside findings. Recommend further observation here in the hospital given the concerns for UTI which may be providing her episodes of near syncope. Further cardiac technologist can also be completed. With her anticoagulation lower suspicion for PE. Patient and daughter were in agreement the plan and the hospitalist was contacted. DIAGNOSIS: Acute UTI, near syncope DISPOSITION: Hospitalist will evaluate Patient was agreeable with this plan. Past Med/Surg History Medical History (Updated 10/16/20 @ 14:44 by Ivonne Bah MD) Anal fistula Asthma NO INHALER Atrial fibrillation Coronary vasospasm Elevated alkaline phosphatase level Food allergy, peanut GERD (gastroesophageal reflux disease) Hyperlipidemia Hypertension Liver cancer Metastatic carcinoid tumor (2016) NSTEMI (non-ST elevated myocardial infarction) Osteoarthritis Partial bowel obstruction Prediabetes Proctocolitis Sustained ventricular tachycardia Syncope Thoracic ascending aortic aneurysm Wide-complex tachycardia Surgical History History of cardiac cath [facility] 2016; "Normal coronary arteries." History of dilatation and curettage History of liver biopsy History of tonsillectomy and adenoidectomy History of tooth extraction S/P appendectomy S/P cholecystectomy S/P total hysterectomy and bilateral salpingo-oophorectomy Family History Sister Family history of diabetes mellitus Myocardial infarction Father Myocardial infarction, Onset Age: 49 Brother CHF (congestive heart failure) Mother Lung cancer Denies family history of Ovarian cancer Prostate cancer Breast cancer Colorectal cancer Social History Smoking Status: Never smoker Second Hand Exposure: No; Hx Alcohol Use: No Hx Substance Use: No Preferred Language: Welsh Communication Ability: Effective Visual Impairment: Limited Hearing Ability: Normal Convention Manager Required: No Beliefs That Will Affect Care: None marital status: Current Living Situation: Family Current Living Situation Comment: spouse, daughter and her family current occupational status: retired 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/[employer] Other Information That Helps Us Care for You: No Feels Safe at Home: Yes Safety Concerns: Feels Safe At This Time Childhood Exposure to Second-Hand Smoke: No caffeine: Yes (occasional soda) during the past year weight has: remained stable Dental Care, Regularly: No Physical Activity Frequency: Daily Seatbelt Use: always Sunscreen Use: Yes Assistive Devices: Glasses and Walker Allergies Allergies Allergy/AdvReac Type Severity Reaction Status Date / Time nut - unspecified Allergy Severe throat Verified 10/16/20 11:25 swelling aspirin Allergy Intermediate "ASTHMA" Verified 10/16/20 11:25 celecoxib Allergy Intermediate "ASTHMA Verified 10/16/20 11:25 ATTACK" codeine Allergy Intermediate "FACE Verified 10/16/20 11:25 PUFFS UP" morphine Allergy Intermediate "FACE Verified 10/16/20 11:25 PUFFS UP" latex Allergy Mild RASH Verified 10/16/20 11:25 caffeine AdvReac Intermediate HEADACHE Verified 10/16/20 11:25 midazolam AdvReac Intermediate extreme Verified 10/16/20 11:25 anxiety fentanyl AdvReac Mild DELIRIUM Verified 10/16/20 11:25 lorazepam AdvReac Mild ANXIOUS Verified 10/16/20 11:25 Home Meds Home Medications Medication Instructions Recorded Confirmed cholecalciferol (vitamin D3) 50 2,000 units PO QAM 04/09/18 10/16/20 mcg (2,000 unit) capsule (Vitamin D3) lanreotide 120 mg/0.5 mL 0 mg SQ Q4WK ml 12/13/18 10/16/20 subcutaneous syringe (Somatuline Depot) acetaminophen 500 mg tablet 1,000 mg PO AMHS 09/06/19 10/16/20 (Tylenol Extra Strength) loratadine 10 mg tablet (Claritin) 10 mg PO QAM PRN 09/06/19 10/16/20 amiodarone 200 mg tablet 200 mg PO QAM 10/06/20 10/16/20 amlodipine 5 mg tablet 5 mg PO BID tab 10/06/20 10/16/20 metoprolol succinate 25 mg 25 mg PO QAM 10/06/20 10/16/20 tablet,extended release 24 hr pantoprazole 40 mg tablet,delayed 40 mg PO QAM 10/06/20 10/16/20 release Previous Rx's Medication Instructions Recorded apixaban 5 mg tablet (Eliquis) 5 mg PO BID #60 tab 06/16/20 lancets (Accu-Chek Softclix #100 ea 06/17/20 Lancets) Results & Data (ED) Vital Signs Vital Signs - 24 hr 10/16/20 10:33 10/16/20 10:39 10/16/20 10:46 Temperature 38.3 C H Temperature Source Oral Pulse Rate 63 Pulse Rate from SpO2 Sensor Respiratory Rate 20 Respiratory Effort / Characteristics Non-Labored Spontaneous Respiratory Depth Normal Respiratory Pattern Regular Blood Pressure 96/77 L 165/81 H Blood Pressure [Right Arm] 165/81 H Blood Pressure Mean 83 109 Blood Pressure Mean [Right Arm] 109 Blood Pressure Position Sitting Blood Pressure Position [Right Arm] Semi-fowlers Pulse Oximetry 97 Oxygen Delivery Method Room Air Sepsis Recent Fever Within 48 Hours Yes Sepsis New/Unexplained Change in Mental Status No Sepsis Action Taken by Nursing No Action Required 10/16/20 10:47 10/16/20 11:11 10/16/20 11:53 Temperature Temperature Source Pulse Rate 66 64 Pulse Rate from SpO2 Sensor Respiratory Rate 20 16 Respiratory Effort / Characteristics Respiratory Depth Respiratory Pattern Blood Pressure 136/106 H 140/86 Blood Pressure [Right Arm] 96/77 L Blood Pressure Mean 116 104 Blood Pressure Mean [Right Arm] 83 Blood Pressure Position Blood Pressure Position [Right Arm] Standing Pulse Oximetry 95 Oxygen Delivery Method Room Air Sepsis Recent Fever Within 48 Hours Sepsis New/Unexplained Change in Mental Status Sepsis Action Taken by Nursing 10/16/20 12:25 10/16/20 13:02 Temperature Temperature Source Pulse Rate 69 63 Pulse Rate from SpO2 Sensor 69 64 Respiratory Rate 23 3 L Respiratory Effort / Characteristics Respiratory Depth Respiratory Pattern Blood Pressure 152/78 H 129/77 Blood Pressure [Right Arm] Blood Pressure Mean 102 94 Blood Pressure Mean [Right Arm] Blood Pressure Position Blood Pressure Position [Right Arm] Pulse Oximetry 93 93 Oxygen Delivery Method Room Air Room Air Sepsis Recent Fever Within 48 Hours Sepsis New/Unexplained Change in Mental Status Sepsis Action Taken by Nursing Laboratory Data Result diagrams: 10/16/20 11:53 10/16/20 11:53 Lab Results 10/16/20 10/16/20 10/16/20 Range/Units 10:50 11:53 11:53 WBC 12.99 H (4.8-10.8) K/uL RBC 3.97 L (4.2-5.4) M/uL Hgb 12.6 (12.0-16.0) g/dL Hct 37.9 (37-47) % MCV 95.5 (80-100) fL MCH 31.7 (25-34) pg MCHC 33.2 (32-36) g/dL RDW Std Deviation 54.3 H (36.4-46.3) fL RDW Coeff of Myra 15.6 H (11.5-14.5) % Plt Count 272 (130-400) K/uL MPV 10.4 (7.4-10.4) fL Immature Gran % (Auto) 0.2 % Neut % (Auto) 88.5 % Lymph % (Auto) 5.5 % Potter % (Auto) 5.4 % Eos % (Auto) 0.2 % Baso % (Auto) 0.2 % Neut # (Auto) 11.52 H (1.4-6.5) K/uL Lymph # (Auto) 0.71 L (1.2-3.4) K/uL Potter # (Auto) 0.70 H (0.11-0.59) K/uL Eos # (Auto) 0.02 (0-0.5) K/uL Baso # (Auto) 0.02 (0-0.2) K/uL Immature Gran # (Auto) 0.02 (0.00-0.02) K/uL Sodium 141 (136-145) mmol/L Potassium 3.9 (3.5-5.1) mmol/L Chloride 110 H (98-107) mmol/L Carbon Dioxide 25 (21-32) mmol/L Anion Gap 6.0 (3-11) BUN 9 (7-18) mg/dl Creatinine 1.23 H (0.6-1.2) mg/dl Est Cr Clr Drug Dosing 36.1 ml/min Est GFR ( Amer) 49.7 ml/min Est GFR (Non-Af Amer) 42.9 ml/min BUN/Creatinine Ratio 7.3 L (10-20) Glucose 128 H (70-99) mg/dl Lactate (0.4-2.0) mmol/L Calcium 8.7 (8.5-10.1) mg/dl Magnesium 2.2 (1.8-2.4) mg/dl Total Bilirubin 0.9 (0.2-1) mg/dl AST 24 (15-37) U/L ALT 21 (12-78) U/L Alkaline Phosphatase 165 H (45-117) U/L Troponin I < 0.015 (0-0.045) ng/ml Total Protein 7.5 (6.4-8.2) gm/dl Albumin 3.5 (3.4-5.0) gm/dl Globulin 4.0 (2.5-4.0) gm/dl Albumin/Globulin Ratio 0.9 (0.9-2) Procalcitonin (0-0.5) ng/ml TSH 3.330 (0.300-4.500) uIu/ml Urine Color Yellow Urine Appearance Cloudy A (Clear) Urine pH 6.0 (4.5-7.5) Ur Specific [place] 1.002 (1.000-1.030) Urine Protein 1+ H (Negative) Urine Glucose (UA) Negative (Negative) Urine Ketones Trace H (Negative) Urine Blood 3+ H (Negative) Urine Nitrite Negative (Negative) Urine Bilirubin Negative (Negative) Urine Urobilinogen Negative (Negative) Ur Leukocyte Esterase 3+ H (Negative) Urine WBC (Auto) >30 H (0-5) /hpf Urine RBC (Auto) 5-10 H (0-4) /hpf U Hyaline Cast (Auto) 0 (0-5) /lpf U Epithel Cells (Auto) >30 H (0-5) /lpf Urine Bacteria (Auto) 3+ H (Negative) COVID-19 Eval Order SARS-CoV-2 (PCR) (Negative) 10/16/20 10/16/20 10/16/20 Range/Units 13:08 13:08 14:04 WBC (4.8-10.8) K/uL RBC (4.2-5.4) M/uL Hgb (12.0-16.0) g/dL Hct (37-47) % MCV (80-100) fL MCH (25-34) pg MCHC (32-36) g/dL RDW Std Deviation (36.4-46.3) fL RDW Coeff of Myra (11.5-14.5) % Plt Count (130-400) K/uL MPV (7.4-10.4) fL Immature Gran % (Auto) % Neut % (Auto) % Lymph % (Auto) % Potter % (Auto) % Eos % (Auto) % Baso % (Auto) % Neut # (Auto) (1.4-6.5) K/uL Lymph # (Auto) (1.2-3.4) K/uL Potter # (Auto) (0.11-0.59) K/uL Eos # (Auto) (0-0.5) K/uL Baso # (Auto) (0-0.2) K/uL Immature Gran # (Auto) (0.00-0.02) K/uL Sodium (136-145) mmol/L Potassium (3.5-5.1) mmol/L Chloride (98-107) mmol/L Carbon Dioxide (21-32) mmol/L Anion Gap (3-11) BUN (7-18) mg/dl Creatinine (0.6-1.2) mg/dl Est Cr Clr Drug Dosing ml/min Est GFR ( Amer) ml/min Est GFR (Non-Af Amer) ml/min BUN/Creatinine Ratio (10-20) Glucose (70-99) mg/dl Lactate 1.5 (0.4-2.0) mmol/L Calcium (8.5-10.1) mg/dl Magnesium (1.8-2.4) mg/dl Total Bilirubin (0.2-1) mg/dl AST (15-37) U/L ALT (12-78) U/L Alkaline Phosphatase (45-117) U/L Troponin I (0-0.045) ng/ml Total Protein (6.4-8.2) gm/dl Albumin (3.4-5.0) gm/dl Globulin (2.5-4.0) gm/dl Albumin/Globulin Ratio (0.9-2) Procalcitonin (0-0.5) ng/ml TSH (0.300-4.500) uIu/ml Urine Color Urine Appearance (Clear) Urine pH (4.5-7.5) Ur Specific [place] (1.000-1.030) Urine Protein (Negative) Urine Glucose (UA) (Negative) Urine Ketones (Negative) Urine Blood (Negative) Urine Nitrite (Negative) Urine Bilirubin (Negative) Urine Urobilinogen (Negative) Ur Leukocyte Esterase (Negative) Urine WBC (Auto) (0-5) /hpf Urine RBC (Auto) (0-4) /hpf U Hyaline Cast (Auto) (0-5) /lpf U Epithel Cells (Auto) (0-5) /lpf Urine Bacteria (Auto) (Negative) COVID-19 Eval Order Covid19 at [facility] SARS-CoV-2 (PCR) NEGATIVE (Negative) 10/16/20 Range/Units 14:04 WBC (4.8-10.8) K/uL RBC (4.2-5.4) M/uL Hgb (12.0-16.0) g/dL Hct (37-47) % MCV (80-100) fL MCH (25-34) pg MCHC (32-36) g/dL RDW Std Deviation (36.4-46.3) fL RDW Coeff of Myra (11.5-14.5) % Plt Count (130-400) K/uL MPV (7.4-10.4) fL Immature Gran % (Auto) % Neut % (Auto) % Lymph % (Auto) % Potter % (Auto) % Eos % (Auto) % Baso % (Auto) % Neut # (Auto) (1.4-6.5) K/uL Lymph # (Auto) (1.2-3.4) K/uL Potter # (Auto) (0.11-0.59) K/uL Eos # (Auto) (0-0.5) K/uL Baso # (Auto) (0-0.2) K/uL Immature Gran # (Auto) (0.00-0.02) K/uL Sodium (136-145) mmol/L Potassium (3.5-5.1) mmol/L Chloride (98-107) mmol/L Carbon Dioxide (21-32) mmol/L Anion Gap (3-11) BUN (7-18) mg/dl Creatinine (0.6-1.2) mg/dl Est Cr Clr Drug Dosing ml/min Est GFR ( Amer) ml/min Est GFR (Non-Af Amer) ml/min BUN/Creatinine Ratio (10-20) Glucose (70-99) mg/dl Lactate (0.4-2.0) mmol/L Calcium (8.5-10.1) mg/dl Magnesium (1.8-2.4) mg/dl Total Bilirubin (0.2-1) mg/dl AST (15-37) U/L ALT (12-78) U/L Alkaline Phosphatase (45-117) U/L Troponin I (0-0.045) ng/ml Total Protein (6.4-8.2) gm/dl Albumin (3.4-5.0) gm/dl Globulin (2.5-4.0) gm/dl Albumin/Globulin Ratio (0.9-2) Procalcitonin < 0.05 (0-0.5) ng/ml TSH (0.300-4.500) uIu/ml Urine Color Urine Appearance (Clear) Urine pH (4.5-7.5) Ur Specific [place] (1.000-1.030) Urine Protein (Negative) Urine Glucose (UA) (Negative) Urine Ketones (Negative) Urine Blood (Negative) Urine Nitrite (Negative) Urine Bilirubin (Negative) Urine Urobilinogen (Negative) Ur Leukocyte Esterase (Negative) Urine WBC (Auto) (0-5) /hpf Urine RBC (Auto) (0-4) /hpf U Hyaline Cast (Auto) (0-5) /lpf U Epithel Cells (Auto) (0-5) /lpf Urine Bacteria (Auto) (Negative) COVID-19 Eval Order SARS-CoV-2 (PCR) (Negative) Administered Medications Sodium Chloride (Nss 1000ml) 1,000 mls @ 125 mls/hr IV .Q8H VIVEK Stop: 10/17/20 08:42 Last Admin: 10/16/20 16:53 Dose: 125 mls/hr Documented by: [id number] Discontinued Medications Sodium Chloride (Nss 1000ml) 1,000 mls @ 999 mls/hr IV .Q1H1M VIVEK Stop: 10/16/20 12:30 Last Infusion: 10/16/20 13:03 Dose: 0 mls/hr Documented by: [id number] Admin: 10/16/20 11:28 Dose: 999 mls/hr Documented by: [id number] Ceftriaxone Sodium (Rocephin) 1,000 mg in 50 mls @ 100 mls/hr IV NOW STA Stop: 10/16/20 13:16 Last Infusion: 10/16/20 13:32 Dose: 0 mls/hr Documented by: [id number] Admin: 10/16/20 13:02 Dose: 100 mls/hr Documented by: [id number] Imaging Data Radiologist's Impression: Chest X-Ray 10/16/20 11:18 SINGLE VIEW CHEST CLINICAL HISTORY: Generalized weakness. FINDINGS: An AP, portable, upright chest radiograph is compared to study dated 08/26/2019 and correlated with chest CT dated 03/13/2020. An electronic device projects over the lower chest. The heart is mildly enlarged noting atherosclerotic calcification of the thoracic aorta. The pulmonary vasculature is noncongested. Emphysema and chronic interstitial thickening is similar to previous. Foci of scarring/atelectasis are present in the lower lobes. No airspace consolidation, large pleural effusion, or pneumothorax is seen. The skeletal structures are osteopenic. The bony thorax is grossly intact. Cholecystectomy clips are seen in the right upper quadrant. IMPRESSION: Cardiomegaly and emphysema with no active disease in the chest. ACT 112: Negative or not required by law. Electronically signed by: Arsalan Matthew M.D. 10/16/2020 12:[address] 10/16/20 11:18 CT SCAN OF THE BRAIN WITHOUT IV CONTRAST CLINICAL HISTORY: Generalized weakness. Near syncope. COMPARISON STUDY: CT of the brain dated 08/01/2020. TECHNIQUE: Unenhanced axial CT scan of the brain is performed from the vertex to the skull base. A dose lowering technique was utilized adhering to the principles of ALARA. CT DOSE: 537.48 mGy.cm FINDINGS: Brain parenchyma: There are age-related involutional changes noting mild to moderate patchy subcortical and periventricular microangiopathic change. There is no hemorrhage, mass effect, or evidence of acute territorial ischemia by CT criteria. Avalos-white matter differentiation is preserved. No extra-axial fluid collection is seen. Ventricles, sulci, cisterns: Prominent secondary to involutional change. Intracranial vasculature: There is atherosclerotic calcification of the cavernous carotid and vertebral arteries. Calvarium: Unremarkable. Sinuses and mastoids: There is trace mucosal thickening within the sphenoid and ethmoid sinuses. The mastoid air cells are well pneumatized. Orbits: The bony orbits are grossly intact. IMPRESSION: There is no hemorrhage, mass effect, or evidence of acute territorial ischemia by CT criteria. ACT 112: Negative or not required by law. Electronically signed by: Arsalan Matthew M.D. 10/16/2020 11:38 AM Discharge Plan Visit Data Chief Complaint: Syncope ED Provider: Renaldo Bernard Discharge Problem: Acute UTI, Near syncope Patient Disposition: Admitted As Inpatient Discharge Instructions Interventions: ED Discharge Assessment Last Done: 10/16/20 16:03
[2020-10-16] MEDS ORDERED: SODIUM CHLORIDE 0.9% 1000ML 1,000 ML IV SCH (11:30)
--- NOTE | 2020-10-16 11:39 | CT Scan Report ---
CT SCAN OF THE BRAIN WITHOUT IV CONTRAST CLINICAL HISTORY: Generalized weakness. Near syncope. COMPARISON STUDY: CT of the brain dated 08/01/2020. TECHNIQUE: Unenhanced axial CT scan of the brain is performed from the vertex to the skull base. A do se lowering technique was utilized adhering to the principles of ALARA. CT DOSE: 537.48 mGy.cm FINDINGS: Brain parenchyma: There are age-related involutional changes noting mild to moderate patchy subcorti adele and periventricular microangiopathic change. There is no hemorrhage, mass effect, or evidence of acute territorial ischemia by CT criteria. Avalos-white matter differentiation is preserved. No extra-a xial fluid collection is seen. Ventricles, sulci, cisterns: Prominent secondary to involutional change. Intracranial vasculature: There is atherosclerotic calcification of the cavernous carotid and vertebr al arteries. Calvarium: Unremarkable. Sinuses and mastoids: There is trace mucosal thickening within the sphenoid and ethmoid sinuses. The mastoid air cells are well pneumatized. Orbits: The bony orbits are grossly intact. IMPRESSION: There is no hemorrhage, mass effect, or evidence of acute territorial ischemia by CT reyna ponce. ACT 112: Negative or not required by law. Electronically signed by: Arsalan Matthew M.D. 10/16/2020 11:38 AM
[2020-10-16 11:45] LABS: Appearance Urine Cloudy (Clear); Bacteria Urine Automated 3+ (Negative); Bilirubin Urine Negative (Negative); Blood Urine 3+ (Negative); Cast Urine Automated 0 /lpf (0-5); Color Urine Yellow; Epithelial Cell Urine Auto >30 /lpf (0-5); Glucose Urine UA Negative (Negative); Ketones Urine Trace (Negative); Leukocyte Esterase Urine 3+ (Negative); Nitrite Urine Negative (Negative); Protein Urine 1+ (Negative); Specific Gravity Urine 1.002 (1.000-1.030); Urobilinogen Urine Negative (Negative); WBC Urine Automated >30 /hpf (0-5)
[2020-10-16 12:00] LABS: Basophils # (auto) 0.02 K/uL (0-0.2); Basophils % (auto) 0.2 %; Eosinophils # (auto) 0.02 K/uL (0-0.5); Eosinophils % (auto) 0.2 %; Hematocrit (blood only) 37.9 % (37-47); Hemoglobin 12.6 g/dL (12.0-16.0); Immature Granulocytes # (auto) 0.02 K/uL (0.00-0.02); Immature Granulocytes % (auto) 0.2 %; Lymphocytes # (auto) 0.71 K/uL (1.2-3.4); Lymphocytes % (auto) 5.5 %; Mean Corpuscular Hemoglobin 31.7 pg (25-34); Mean Corpuscular Hgb Conc 33.2 g/dL (32-36); Mean Corpuscular Volume 95.5 fL (80-100); Mean Platelet Volume 10.4 fL (7.4-10.4); Monocytes % (auto) 5.4 %; Neutrophils # (auto) 11.52 K/uL (1.4-6.5); Neutrophils % (auto) 88.5 %; Platelet Count 272 K/uL (130-400); RDW Coefficient of Variation 15.6 % (11.5-14.5); RDW Standard Deviation 54.3 fL (36.4-46.3); Red Blood Count 3.97 M/uL (4.2-5.4); White Blood Count 12.99 K/uL (4.8-10.8)
--- NOTE | 2020-10-16 12:12 | XRay Report ---
SINGLE VIEW CHEST CLINICAL HISTORY: Generalized weakness. FINDINGS: An AP, portable, upright chest radiograph is compared to study dated 08/26/2019 and correlat ed with chest CT dated 03/13/2020. An electronic device projects over the lower chest. The heart is mi ldly enlarged noting atherosclerotic calcification of the thoracic aorta. The pulmonary vasculature i s noncongested. Emphysema and chronic interstitial thickening is similar to previous. Foci of scarrin g/atelectasis are present in the lower lobes. No airspace consolidation, large pleural effusion, or p neumothorax is seen. The skeletal structures are osteopenic. The bony thorax is grossly intact. Fannie cystectomy clips are seen in the right upper quadrant. IMPRESSION: Cardiomegaly and emphysema with no active disease in the chest. ACT 112: Negative or not required by law. Electronically signed by: Arsalan Matthew M.D. 10/16/2020 12:11 PM
[2020-10-16 12:17] LABS: Alanine Aminotransferase 21 U/L (12-78); Albumin Level 3.5 gm/dl (3.4-5.0); Aspartate Aminotransferase 24 U/L (15-37); BUN Creatinine Ratio 7.3 (10-20); Blood Urea Nitrogen 9 mg/dl (7-18); Calcium 8.7 mg/dl (8.5-10.1); Carbon Dioxide 25 mmol/L (21-32); Chloride 110 mmol/L (98-107); Creatinine Clr Calc Pharmacy 36.1 ml/min; Est GFR (African American) 49.7 ml/min; Est GFR (Non-African American) 42.9 ml/min; Glucose 128 mg/dl (70-99); Magnesium 2.2 mg/dl (1.8-2.4); Potassium 3.9 mmol/L (3.5-5.1); Sodium 141 mmol/L (136-145)
[2020-10-16 12:28] LABS: Albumin Globulin Ratio 0.9 (0.9-2); Alkaline Phosphatase 165 U/L (45-117); Bilirubin,Total 0.9 mg/dl (0.2-1); Total Protein 7.5 gm/dl (6.4-8.2); Troponin I < 0.015 ng/ml (0-0.045)
[2020-10-16] MEDS ORDERED: cefTRIAXone SODIUM 1,000 MG/50 ML BAG IV STA (12:47)
--- NOTE | 2020-10-16 13:29 | History & Physical Report ---
Date of Service October 16, 2020 Assessment & Plan (1) Sepsis: Plan: Presents with fever, leukocytosis, intermittently borderline low blood pressures, and UTI-sepsis, POA. Also with mild renal insufficiency Covid-19 is negative -Admit to PCU with multiple episodes of syncope and near syncope as below for telemetry monitoring -Continue ceftriaxone started in the ER -Follow urine cultures -Draw blood cultures which were drawn after antibiotics given in the ER -Check lactate, procalcitonin -Continue normal saline to support blood pressure -Tylenol as needed for fevers -Follow CBC, CMP, magnesium (2) Acute UTI: Plan: Treatment as above (3) Near syncope: Plan: With a history of syncope and has a loop recorder in place for history of wide- complex tachycardia as well as bradycardia Is in a sinus rhythm here with normal rates Has multiple, 3-4 times a day, episodes of presyncope and syncope for the last 2 weeks-previously thought to be related to hypotension as per daughter May be related to hypotension and febrile illness as above Echocardiogram from 07/2019 with preserved EF 55%, small subtle wall motion abnormality with hypokinesis of the apical anteroseptal segment and mid inferoseptal segment, no significant aortic valvular stenosis, moderate MR, mild TR Troponin negative upon arrival Support blood pressure with IV fluids -Monitor on telemetry -Consult her storage battery charger as she was supposed to follow-up tomorrow anyway and interrogate loop recorder -Follow electrolytes and replete as needed (4) Prediabetes: Plan: Hemoglobin A1c in 06/2019 was 6.1% Blood glucose on arrival is mildly elevated at 128 but is nonfasting No need for Accu-Cheks or NovoLog supplemental insulin unless becomes hyperglycemic on morning labs (5) Thoracic ascending aortic aneurysm: Plan: Noted on CT angiogram of the chest in 07/2019 to be mild dilatation of the ascending thoracic aorta measuring up to 4.3 cm diameter Follow as an outpatient Blood pressure control (6) Wide-complex tachycardia: Plan: History of such thought to be possibly rapid atrial fibrillation with aberrancy Follows with cardiology Loop recorder in place Monitor on telemetry (7) Metastatic carcinoid tumor: Plan: Diagnosed in 2016, status post radiation, follows with oncology at [facility], Wendy Haque Has known mets to liver, a mesenteric mass Continues on monthly injections of lanreotide (8) Asthma: Plan: Extrinsic asthma exacerbated by allergy symptoms Claritin as needed Is not on any inhalers Consider bronchodilators as needed Chest x-ray is negative (9) Atrial fibrillation: Plan: Currently in sinus rhythm Monitor on telemetry Continue amiodarone, apixaban, metoprolol with hold parameters (10) Hypertension: Plan: Blood pressures intermittently low upon admission Supporting with IV fluids Continue home amlodipine 5 mg p.o. twice daily with hold parameters Continue home Toprol-XL 25 mg daily with hold parameters (11) Hyperlipidemia: Plan: Not on medication for this (12) GERD (gastroesophageal reflux disease): Plan: No acute issues Continue home PPI (13) Osteoarthritis: Plan: Continue Tylenol as needed for pain (14) Elevated alkaline phosphatase level: Plan: Chronic, lower than previous Has known multiple space-occupying hepatic masses from her carcinoid-most recently the largest measuring 8.[address] abdomen/pelvis on 03/13/2020 (15) DVT prophylaxis: Plan: Apixaban Disposition-admit to PCU Full code, but does not want prolonged life support if in a state of poor prognosis She designates her daughter as her decision-maker, however she is , but her is in poor health and has bad hearing History of Present Illness Chief Complaint: Passing out Primary Care Provider: Vicenta Gilbert DO This patient is a 75-year-old female with history of prediabetes, atrial fibrillation on Eliquis and amiodarone, HTN, neuroendocrine carcinoma, and syncope, who presents to the ER with multiple episodes of near syncope and syncope. She has had numerous episodes of feeling weak and dizzy with any kind of activity such as walking. Today she went to make breakfast and felt generally weak and had to sit down and lowered her head to the table but did not lose consciousness. She has not had any falls or injuries. There have been a few times where she passed the hallway out in the last 2 weeks. Because this is happened to her in the past, her daughter was not overly concerned, but the patient's called for an ambulance today. She denies any heart palpitations. She has had sweats at home but no chills or fevers that she knows of. She did have some abdominal pain with urinating yesterday. No constipation or diarrhea. She has a chronic cough which she says is related to allergy symptoms and asthma. Denies headache, numbness/tingling/focal weakness. She feels generally weak all over. Of note, she has a loop recorder in place for the past year due to previous episodes of syncope and was due to see her storage battery charger tomorrow. She frequently has bradycardia down to the 30s as per her daughter. In the ER, she was noted to be febrile with an occasional low blood pressure but mostly elevated blood pressures. She had a leukocytosis, mild renal insufficiency, and evidence of UTI on urinalysis. CT of the head was negative. She was given a dose of ceftriaxone and IV fluids. She will be admitted for sepsis, UTI, generalized weakness, and syncope/presyncope. Allergies Allergy/AdvReac Type Severity Reaction Status Date / Time nut - unspecified Allergy Severe throat Verified 10/16/20 11:25 swelling aspirin Allergy Intermediate "ASTHMA" Verified 10/16/20 11:25 celecoxib Allergy Intermediate "ASTHMA Verified 10/16/20 11:25 ATTACK" codeine Allergy Intermediate "FACE Verified 10/16/20 11:25 PUFFS UP" morphine Allergy Intermediate "FACE Verified 10/16/20 11:25 PUFFS UP" latex Allergy Mild RASH Verified 10/16/20 11:25 caffeine AdvReac Intermediate HEADACHE Verified 10/16/20 11:25 midazolam AdvReac Intermediate extreme Verified 10/16/20 11:25 anxiety fentanyl AdvReac Mild DELIRIUM Verified 10/16/20 11:25 lorazepam AdvReac Mild ANXIOUS Verified 10/16/20 11:25 Home Medications Medication Instructions Recorded Confirmed Type cholecalciferol (vitamin D3) 50 2,000 units PO QAM 04/09/18 10/16/20 History mcg (2,000 unit) capsule (Vitamin D3) lanreotide 120 mg/0.5 mL 0 mg SQ Q4WK ml 12/13/18 10/16/20 History subcutaneous syringe (Somatuline Depot) acetaminophen 500 mg tablet 1,000 mg PO AMHS 09/06/19 10/16/20 History (Tylenol Extra Strength) loratadine 10 mg tablet (Claritin) 10 mg PO QAM PRN 09/06/19 10/16/20 History apixaban 5 mg tablet (Eliquis) 5 mg PO BID #60 tab 06/16/20 10/16/20 Rx lancets (Accu-Chek Softclix #100 ea 06/17/20 10/06/20 Rx Lancets) amiodarone 200 mg tablet 200 mg PO QAM 10/06/20 10/16/20 History amlodipine 5 mg tablet 5 mg PO BID tab 10/06/20 10/16/20 History metoprolol succinate 25 mg 25 mg PO QAM 10/06/20 10/16/20 History tablet,extended release 24 hr pantoprazole 40 mg tablet,delayed 40 mg PO QAM 10/06/20 10/16/20 History release Past Med/Surg History Medical History (Updated 10/16/20 @ 14:44 by Ivonne Bah MD) Anal fistula Asthma NO INHALER Atrial fibrillation Coronary vasospasm Elevated alkaline phosphatase level Food allergy, peanut GERD (gastroesophageal reflux disease) Hyperlipidemia Hypertension Liver cancer Metastatic carcinoid tumor (2016) NSTEMI (non-ST elevated myocardial infarction) Osteoarthritis Partial bowel obstruction Prediabetes Proctocolitis Sustained ventricular tachycardia Syncope Thoracic ascending aortic aneurysm Wide-complex tachycardia Surgical History History of cardiac cath [facility] 2015; "Normal coronary arteries." History of dilatation and curettage History of liver biopsy History of tonsillectomy and adenoidectomy History of tooth extraction S/P appendectomy S/P cholecystectomy S/P total hysterectomy and bilateral salpingo-oophorectomy Family History Sister Family history of diabetes mellitus Myocardial infarction Father Myocardial infarction, Onset Age: 49 Brother CHF (congestive heart failure) Mother Lung cancer Denies family history of Ovarian cancer Prostate cancer Breast cancer Colorectal cancer Social History Smoking Status: Never smoker Second Hand Exposure: No; Hx Alcohol Use: No Hx Substance Use: No Preferred Language: Palestinian Communication Ability: Effective Visual Impairment: Limited Hearing Ability: Normal Golf Ball Winder Required: No Beliefs That Will Affect Care: None marital status: Current Living Situation: Family Current Living Situation Comment: spouse, daughter and her family current occupational status: retired current occupation: [employer] Feels Safe at Home: Yes Childhood Exposure to Second-Hand Smoke: No caffeine: Yes (occasional soda) during the past year weight has: remained stable Dental Care, Regularly: No Physical Activity Frequency: Daily Seatbelt Use: always Sunscreen Use: Yes Assistive Devices: Glasses and Walker Review of Systems Review of Systems: All systems reviewed & are unremarkable except as noted in HPI & below Physical Exam Constitutional: WD/WN, vitals as above Eyes: PERRL, conjunctivae normal, anicteric sclerae ENMT: external ear and nose normal, oropharynx normal Neck: trachea midline, no thyromegaly Respiratory: normal respiratory effort, lungs clear to auscultation Cardiovascular: RRR, no murmur, no edema Chest (Breasts): Chest: normal inspection of chest Gastrointestinal (Abdomen): normal bowel sounds, soft, nontender, no hepatosplenomegaly Musculoskeletal: Extremities: extremities normal to inspection; no cyanosis and no clubbing Skin: no rashes, warm and dry Neurologic: moves all extremities and awake; no focal motor deficits Psychiatric: A+Ox3, euthymic affect Lymphatic: no lymphedema Results & Data Results & Data ([facility]) Vital Signs (Past 12 Hours) Vital Signs Temp Pulse Resp BP BP Pulse Ox 10/16/20 11:53 64 16 140/86 95 10/16/20 11:11 66 20 136/106 H 10/16/20 10:47 96/77 L 10/16/20 10:46 165/81 H 10/16/20 10:39 38.3 C H 63 20 165/81 H 97 10/16/20 10:33 96/77 L Laboratory Results 10/16/20 10/16/20 10/16/20 Range/Units 13:08 13:08 11:53 WBC (4.8-10.8) K/uL RBC (4.2-5.4) M/uL Hgb (12.0-16.0) g/dL Hct (37-47) % MCV (80-100) fL MCH (25-34) pg MCHC (32-36) g/dL RDW Std Deviation (36.4-46.3) fL RDW Coeff of Myra (11.5-14.5) % Plt Count (130-400) K/uL MPV (7.4-10.4) fL Immature Gran % (Auto) % Neut % (Auto) % Lymph % (Auto) % [place] % (Auto) % Eos % (Auto) % Baso % (Auto) % Neut # (Auto) (1.4-6.5) K/uL Lymph # (Auto) (1.2-3.4) K/uL [place] # (Auto) (0.11-0.59) K/uL Eos # (Auto) (0-0.5) K/uL Baso # (Auto) (0-0.2) K/uL Immature Gran # (Auto) (0.00-0.02) K/uL Sodium 141 (136-145) mmol/L Potassium 3.9 (3.5-5.1) mmol/L Chloride 110 H (98-107) mmol/L Carbon Dioxide 25 (21-32) mmol/L Anion Gap 6.0 (3-11) BUN 9 (7-18) mg/dl Creatinine 1.23 H (0.6-1.2) mg/dl Est Cr Clr Drug Dosing 36.1 ml/min Est GFR ( Amer) 49.7 ml/min Est GFR (Non-Af Amer) 42.9 ml/min BUN/Creatinine Ratio 7.3 L (10-20) Glucose 128 H (70-99) mg/dl Calcium 8.7 (8.5-10.1) mg/dl Magnesium 2.2 (1.8-2.4) mg/dl Total Bilirubin 0.9 (0.2-1) mg/dl AST 24 (15-37) U/L ALT 21 (12-78) U/L Alkaline Phosphatase 165 H (45-117) U/L Troponin I < 0.015 (0-0.045) ng/ml Total Protein 7.5 (6.4-8.2) gm/dl Albumin 3.5 (3.4-5.0) gm/dl Globulin 4.0 (2.5-4.0) gm/dl Albumin/Globulin Ratio 0.9 (0.9-2) TSH 3.330 (0.300-4.500) uIu/ml Urine Color Urine Appearance (Clear) Urine pH (4.5-7.5) Ur Specific [place] (1.000-1.030) Urine Protein (Negative) Urine Glucose (UA) (Negative) Urine Ketones (Negative) Urine Blood (Negative) Urine Nitrite (Negative) Urine Bilirubin (Negative) Urine Urobilinogen (Negative) Ur Leukocyte Esterase (Negative) Urine WBC (Auto) (0-5) /hpf Urine RBC (Auto) (0-4) /hpf U Hyaline Cast (Auto) (0-5) /lpf U Epithel Cells (Auto) (0-5) /lpf Urine Bacteria (Auto) (Negative) COVID-19 Eval Order Covid19 at [facility] SARS-CoV-2 (PCR) Pending 10/16/20 10/16/20 Range/Units 11:53 10:50 WBC 12.99 H (4.8-10.8) K/uL RBC 3.97 L (4.2-5.4) M/uL Hgb 12.6 (12.0-16.0) g/dL Hct 37.9 (37-47) % MCV 95.5 (80-100) fL MCH 31.7 (25-34) pg MCHC 33.2 (32-36) g/dL RDW Std Deviation 54.3 H (36.4-46.3) fL RDW Coeff of Myra 15.6 H (11.5-14.5) % Plt Count 272 (130-400) K/uL MPV 10.4 (7.4-10.4) fL Immature Gran % (Auto) 0.2 % Neut % (Auto) 88.5 % Lymph % (Auto) 5.5 % [place] % (Auto) 5.4 % Eos % (Auto) 0.2 % Baso % (Auto) 0.2 % Neut # (Auto) 11.52 H (1.4-6.5) K/uL Lymph # (Auto) 0.71 L (1.2-3.4) K/uL [place] # (Auto) 0.70 H (0.11-0.59) K/uL Eos # (Auto) 0.02 (0-0.5) K/uL Baso # (Auto) 0.02 (0-0.2) K/uL Immature Gran # (Auto) 0.02 (0.00-0.02) K/uL Sodium (136-145) mmol/L Potassium (3.5-5.1) mmol/L Chloride (98-107) mmol/L Carbon Dioxide (21-32) mmol/L Anion Gap (3-11) BUN (7-18) mg/dl Creatinine (0.6-1.2) mg/dl Est Cr Clr Drug Dosing ml/min Est GFR ( Amer) ml/min Est GFR (Non-Af Amer) ml/min BUN/Creatinine Ratio (10-20) Glucose (70-99) mg/dl Calcium (8.5-10.1) mg/dl Magnesium (1.8-2.4) mg/dl Total Bilirubin (0.2-1) mg/dl AST (15-37) U/L ALT (12-78) U/L Alkaline Phosphatase (45-117) U/L Troponin I (0-0.045) ng/ml Total Protein (6.4-8.2) gm/dl Albumin (3.4-5.0) gm/dl Globulin (2.5-4.0) gm/dl Albumin/Globulin Ratio (0.9-2) TSH (0.300-4.500) uIu/ml Urine Color Yellow Urine Appearance Cloudy A (Clear) Urine pH 6.0 (4.5-7.5) Ur Specific [place] 1.002 (1.000-1.030) Urine Protein 1+ H (Negative) Urine Glucose (UA) Negative (Negative) Urine Ketones Trace H (Negative) Urine Blood 3+ H (Negative) Urine Nitrite Negative (Negative) Urine Bilirubin Negative (Negative) Urine Urobilinogen Negative (Negative) Ur Leukocyte Esterase 3+ H (Negative) Urine WBC (Auto) >30 H (0-5) /hpf Urine RBC (Auto) 5-10 H (0-4) /hpf U Hyaline Cast (Auto) 0 (0-5) /lpf U Epithel Cells (Auto) >30 H (0-5) /lpf Urine Bacteria (Auto) 3+ H (Negative) COVID-19 Eval Order SARS-CoV-2 (PCR) Diagnostic Findings Chest X-Ray 10/16/20 11:18 SINGLE VIEW CHEST CLINICAL HISTORY: Generalized weakness. FINDINGS: An AP, portable, upright chest radiograph is compared to study dated 08/26/2019 and correlated with chest CT dated 03/13/2020. An electronic device projects over the lower chest. The heart is mildly enlarged noting atherosclerotic calcification of the thoracic aorta. The pulmonary vasculature is noncongested. Emphysema and chronic interstitial thickening is similar to previous. Foci of scarring/atelectasis are present in the lower lobes. No airspace consolidation, large pleural effusion, or pneumothorax is seen. The skeletal structures are osteopenic. The bony thorax is grossly intact. Cholecystectomy clips are seen in the right upper quadrant. IMPRESSION: Cardiomegaly and emphysema with no active disease in the chest. ACT 112: Negative or not required by law. Electronically signed by: Arsalan Matthew M.D. 10/16/2020 12:[address] 10/16/20 11:18 CT SCAN OF THE BRAIN WITHOUT IV CONTRAST CLINICAL HISTORY: Generalized weakness. Near syncope. COMPARISON STUDY: CT of the brain dated 08/01/2020. TECHNIQUE: Unenhanced axial CT scan of the brain is performed from the vertex to the skull base. A dose lowering technique was utilized adhering to the principles of ALARA. CT DOSE: 537.48 mGy.cm FINDINGS: Brain parenchyma: There are age-related involutional changes noting mild to moderate patchy subcortical and periventricular microangiopathic change. There is no hemorrhage, mass effect, or evidence of acute territorial ischemia by CT criteria. [place]-white matter differentiation is preserved. No extra-axial fluid collection is seen. Ventricles, sulci, cisterns: Prominent secondary to involutional change. Intracranial vasculature: There is atherosclerotic calcification of the cavernous carotid and vertebral arteries. Calvarium: Unremarkable. Sinuses and mastoids: There is trace mucosal thickening within the sphenoid and ethmoid sinuses. The mastoid air cells are well pneumatized. Orbits: The bony orbits are grossly intact. IMPRESSION: There is no hemorrhage, mass effect, or evidence of acute territorial ischemia by CT criteria. ACT 112: Negative or not required by law. Electronically signed by: Arsalan Matthew M.D. 10/16/2020 11:38 AM ECG Additional Comments: ECG on 10/16/2020 at 10:49 AM with sinus rhythm with PVCs, incomplete LBBB, ST and T wave abnormality in lateral leads unchanged from previous Code Status & VTE Plan Code Status FULL CODE, but does not want prolonged life support if in poor prognosis VTE Prophylaxis Plan VTE Prophylaxis will be ordered: Yes PG Care Time/CCT Total # of Minutes Spent Total Time Spent with Patient: Total time spent is greater than 50% in coordination of care (as documented) at patient's floor/unit and/or counseling patient: Coding Level of Care Code 46860 Initial Inpt Care Lvl 3 Diagnoses Acute UTI N39.0 Near syncope R55 Prediabetes R73.03 Thoracic ascending aortic aneurysm I71.2 Wide-complex tachycardia I47.2 Metastatic carcinoid tumor C7B.00 Asthma J45.909 Atrial fibrillation I48.91 Osteoarthritis M19.90 Hyperlipidemia E78.5 Hypertension I10 GERD (gastroesophageal reflux disease) K21.9 Sepsis A41.9 DVT prophylaxis Z29.9 Elevated alkaline phosphatase level R74.8
[2020-10-16] MEDS ORDERED: ACETAMINOPHEN 325 MG TAB PO PRN (16:43)
[2020-10-16] MEDS ORDERED: LORATADINE 10 MG TAB PO PRN (16:43)
[2020-10-16] MEDS ORDERED: POLYETHYLENE (MIRALAX) 17 GM PACK PO PRN (16:43)
[2020-10-16] MEDS: SODIUM CHLORIDE 0.9% 1000ML 1,000 ML IV SCH (16:53)
[2020-10-16] MEDS: APIXABAN 5 MG TABLET PO SCH (20:36)
[2020-10-16] MEDS: ACETAMINOPHEN 500 MG TAB PO SCH (20:36)
[2020-10-16] MEDS ORDERED: amLODIPine BESYLATE 5 MG TAB PO SCH (21:00)
[2020-10-17] MEDS: SODIUM CHLORIDE 0.9% 1000ML 1,000 ML IV SCH (05:11)
[2020-10-17 05:31] LABS: Basophils # (auto) 0.01 K/uL (0-0.2); Basophils % (auto) 0.1 %; Eosinophils # (auto) 0.09 K/uL (0-0.5); Eosinophils % (auto) 1.2 %; Hematocrit (blood only) 31.6 % (37-47); Hemoglobin 10.4 g/dL (12.0-16.0); Immature Granulocytes # (auto) 0.01 K/uL (0.00-0.02); Immature Granulocytes % (auto) 0.1 %; Lymphocytes % (auto) 15.2 %; Mean Corpuscular Hemoglobin 31.6 pg (25-34); Mean Corpuscular Hgb Conc 32.9 g/dL (32-36); Mean Platelet Volume 10.1 fL (7.4-10.4); Monocytes # (auto) 0.47 K/uL (0.11-0.59); Monocytes % (auto) 6.5 %; Neutrophils # (auto) 5.55 K/uL (1.4-6.5); Neutrophils % (auto) 76.9 %; Platelet Count 233 K/uL (130-400); RDW Coefficient of Variation 15.9 % (11.5-14.5); RDW Standard Deviation 55.9 fL (36.4-46.3); Red Blood Count 3.29 M/uL (4.2-5.4); White Blood Count 7.23 K/uL (4.8-10.8)
[2020-10-17 05:57] LABS: Albumin Level 2.7 gm/dl (3.4-5.0); Bilirubin Direct 0.2 mg/dl (0-0.2); Calcium 7.9 mg/dl (8.5-10.1); Creatinine Clr Calc Pharmacy 43.2 ml/min; Est GFR (African American) 63.1 ml/min; Est GFR (Non-African American) 54.4 ml/min; Magnesium 2.5 mg/dl (1.8-2.4); Potassium 3.4 mmol/L (3.5-5.1)
--- NOTE | 2020-10-17 05:58 | Electrocardiogram Report ---
Test Reason : Blood Pressure : / mmHG Vent. Rate : 063 BPM Atrial Rate : 063 BPM P-R Int : 178 ms QRS Dur : 114 ms QT Int : 416 ms P-R-T Axes : 080 -17 190 degrees QTc Int : 425 ms Poor data quality, interpretation may be adversely affected Sinus rhythm Incomplete left bundle block Abnormal ECG When compared with ECG of 06-SEP-2019 18:11, Nonspecific T wave abnormality now evident in Inferior leads QT has shortened Confirmed by Nikko Bethea ([id number]) on 10/17/2020 5:57:51 AM Referred By: REFERRED SELF Confirmed By:Nkiko Bethea
[2020-10-17 06:00] LABS: Bilirubin,Total 0.7 mg/dl (0.2-1); Total Protein 6.3 gm/dl (6.4-8.2)
[2020-10-17] MEDS: AMIODARONE 200 MG TAB PO SCH (08:07)
[2020-10-17] MEDS: METOPROLOL SUCC 25MG EXT REL TAB PO SCH (08:07)
[2020-10-17] MEDS: CHOLECALCIFEROL 1,000 UNITS 25 MCG TAB PO SCH (08:07)
[2020-10-17] MEDS: APIXABAN 5 MG TABLET PO SCH ×2 (08:07→20:57)
[2020-10-17] MEDS: PANTOprazole 40 MG TAB PO SCH (08:07)
[2020-10-17] MEDS: ACETAMINOPHEN 500 MG TAB PO SCH ×2 (08:08→20:57)
--- NOTE | 2020-10-17 08:22 | Cardiology Consultation ---
Date of Consultation October 17, 2020 Assessment & Plan (1) Near syncope: (2) Bradycardia: (3) Metastatic carcinoid tumor: (4) PAF (paroxysmal atrial fibrillation): Unfortunately I do not have any specific recommendations at this time. Her Linq device shows no significant arrhythmias. She has sinus bradycardia on the telemetry but this is not something that is new. It is interesting that she has had these events occurring ever since her diagnosis of carcinoid syndrome and one would have to wonder if they are connected. History of Present Illness Attending Physician: Galindo Grimaldo MD History of Present Illness This is a 75-year-old female who states that since she had a diagnosis of a carcinoid tumor approximately 5 years ago she has had intermittent episodes of unresponsiveness, presyncope and syncope. The patient has a history of PAF and also some wide-complex tachycardia which resulted in the insertion of a Linq device in August 2019. She has been on amiodarone, metoprolol and Eliquis. She does have a history of sinus bradycardia and an incomplete left bundle branch block. The patient was in her usual state of health and then yesterday morning she was preparing some food in her kitchen when she suddenly felt weak and fatigued and went down on her knees. She was brought to the emergency department by her family and admitted. Her Linq device has since been interrogated and shows no significant arrhythmias. On the telemetry she is in a sinus bradycardia with heart rates in the 40s and 50s and no other significant arrhythmias. Past medical history: 1. WCT s/p LINQ insertion 08/2019 and started on amiodarone-thought to be more SVT with aberrancy 2. pAF on metoprolol, amiodarone and eliquis [id number] (age, female) 3. Sinus bradycardia 4. Incomplete LBBB 5. HTN 6. Cacinoid tumor syndrome Allergies Allergy/AdvReac Type Severity Reaction Status Date / Time nut - unspecified Allergy Severe throat Verified 10/16/20 11:25 swelling aspirin Allergy Intermediate "ASTHMA" Verified 10/16/20 11:25 celecoxib Allergy Intermediate "ASTHMA Verified 10/16/20 11:25 ATTACK" codeine Allergy Intermediate "FACE Verified 10/16/20 11:25 PUFFS UP" morphine Allergy Intermediate "FACE Verified 10/16/20 11:25 PUFFS UP" latex Allergy Mild RASH Verified 10/16/20 11:25 caffeine AdvReac Intermediate HEADACHE Verified 10/16/20 11:25 midazolam AdvReac Intermediate extreme Verified 10/16/20 11:25 anxiety fentanyl AdvReac Mild DELIRIUM Verified 10/16/20 11:25 lorazepam AdvReac Mild ANXIOUS Verified 10/16/20 11:25 Home Medications Medication Instructions Recorded Confirmed Type cholecalciferol (vitamin D3) 50 2,000 units PO QAM 04/09/18 10/16/20 History mcg (2,000 unit) capsule (Vitamin D3) lanreotide 120 mg/0.5 mL 0 mg SQ Q4WK ml 12/13/18 10/16/20 History subcutaneous syringe (Somatuline Depot) acetaminophen 500 mg tablet 1,000 mg PO AMHS 09/06/19 10/16/20 History (Tylenol Extra Strength) loratadine 10 mg tablet (Claritin) 10 mg PO QAM PRN 09/06/19 10/16/20 History apixaban 5 mg tablet (Eliquis) 5 mg PO BID #60 tab 06/16/20 10/16/20 Rx lancets (Accu-Chek Softclix #100 ea 06/17/20 10/06/20 Rx Lancets) amiodarone 200 mg tablet 200 mg PO QAM 10/06/20 10/16/20 History amlodipine 5 mg tablet 5 mg PO BID tab 10/06/20 10/16/20 History metoprolol succinate 25 mg 25 mg PO QAM 10/06/20 10/16/20 History tablet,extended release 24 hr pantoprazole 40 mg tablet,delayed 40 mg PO QAM 10/06/20 10/16/20 History release Patient History Medical History Anal fistula Asthma NO INHALER Atrial fibrillation Coronary vasospasm Elevated alkaline phosphatase level Food allergy, peanut GERD (gastroesophageal reflux disease) Hyperlipidemia Hypertension Liver cancer Metastatic carcinoid tumor (2016) NSTEMI (non-ST elevated myocardial infarction) Osteoarthritis Partial bowel obstruction Prediabetes Proctocolitis Sustained ventricular tachycardia Syncope Thoracic ascending aortic aneurysm Wide-complex tachycardia Surgical History History of cardiac cath [facility] 2016; "Normal coronary arteries." History of dilatation and curettage History of liver biopsy History of tonsillectomy and adenoidectomy History of tooth extraction S/P appendectomy S/P cholecystectomy S/P total hysterectomy and bilateral salpingo-oophorectomy Family History Sister Family history of diabetes mellitus Myocardial infarction Father Myocardial infarction, Onset Age: 49 Brother CHF (congestive heart failure) Mother Lung cancer Denies family history of Ovarian cancer Prostate cancer Breast cancer Colorectal cancer Social History Smoking Status: Never smoker Second Hand Exposure: No; Hx Alcohol Use: No Hx Substance Use: No Preferred Language: Yi Communication Ability: Effective Visual Impairment: Limited Hearing Ability: Normal Spinning Frame Tender Required: No Beliefs That Will Affect Care: None marital status: Current Living Situation: Family Current Living Situation Comment: spouse, daughter and her family current occupational status: retired 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 All other 10 point review of systems are negative. Physical Exam Physical Exam: General: no acute distress and stated age Head: normocephalic, no masses, lesions, tenderness or abnormalities Eyes: conjunctiva are pink and non-injected, sclera clear Neck: supple, no adenopathy, no bruits, normal jugular venous pulse, no hepatojugular reflux Chest: normal shape and normal respiratory effort Lungs: clear to auscultation and percussion Cardiac Exam: - regular rate & rhythm, no murmurs gallops or rubs - normal S1, normal S2 Pulses: 2(+) throughout Abdomen: abdomen soft, non-tender, no abnormal masses and no hepatosplenomegaly Musculoskeletal: no gait disturbance, no joint inflammation, no deforming arthritis Extremities: no edema and no cyanosis Neuro: grossly normal exam Results & Data ([facility]) Vital Signs (Past 12 Hours) Vital Signs Temp Pulse Pulse Resp BP Pulse Ox 10/17/20 07:02 36.6 C 51 L 19 108/59 L 98 10/17/20 03:24 36.6 C 48 L 18 106/66 95 10/16/20 23:46 36.7 C 50 L 18 114/68 98 10/16/20 23:35 50 L Laboratory Results Laboratory Results - last 24 hr 10/17/20 10/17/20 05:22 05:22 WBC 7.23 RBC 3.29 L Hgb 10.4 L Hct 31.6 L MCV 96.0 MCH 31.6 MCHC 32.9 RDW Std Deviation 55.9 H RDW Coeff of Myra 15.9 H Plt Count 233 MPV 10.1 Immature Gran % (Auto) 0.1 Neut % (Auto) 76.9 Lymph % (Auto) 15.2 Payette % (Auto) 6.5 Eos % (Auto) 1.2 Baso % (Auto) 0.1 Neut # (Auto) 5.55 Lymph # (Auto) 1.10 L [place]ette # (Auto) 0.47 Eos # (Auto) 0.09 Baso # (Auto) 0.01 Immature Gran # (Auto) 0.01 Sodium 144 Potassium 3.4 L Chloride 115 H Carbon Dioxide 26 Anion Gap 3.0 BUN 8 Creatinine 1.01 Est Cr Clr Drug Dosing 43.2 Est GFR ( Amer) 63.1 Est GFR (Non-Af Amer) 54.4 BUN/Creatinine Ratio 8.0 L Glucose 93 Calcium 7.9 L Magnesium 2.5 H Total Bilirubin 0.7 Direct Bilirubin 0.2 AST 22 ALT 17 Alkaline Phosphatase 127 H Total Protein 6.3 L Albumin 2.7 L Medications Administered Current Inpatient Medications Acetaminophen (Acetaminophen 500 Mg Tab) 500 mg PO BID [facility] Stop: 11/15/20 20:59 Last Admin: 10/17/20 08:08 Dose: 500 mg Documented by: Acetaminophen (Acetaminophen 325 Mg Tab) 650 mg PO Q4H PRN PRN Reason: Pain or Fever Stop: 11/15/20 16:42 Amiodarone HCl (Amiodarone 200 Mg Tab) 200 mg PO QAM VIVEK Stop: 11/16/20 08:59 Last Admin: 10/17/20 08:07 Dose: 200 mg Documented by: Apixaban (Apixaban 5 Mg Tablet) 5 mg PO BID [facility] Stop: 11/15/20 20:59 Last Admin: 10/17/20 08:07 Dose: 5 mg Documented by: Ceftriaxone Sodium 1,000 mg/ (Dextrose) 50 mls @ 100 mls/hr IV Q24H [facility]; Protocol Stop: 10/27/20 11:59 Last Infusion: 10/17/20 12:34 Dose: Infused Documented by: Loratadine (Loratadine 10 Mg Tab) 10 mg PO QAM PRN PRN Reason: ALLERGIES Stop: 11/15/20 16:42 Last Admin: 10/17/20 08:07 Dose: 10 mg Documented by: Metoprolol Succinate (Metoprolol Succ 25mg Ext Rel Tab) [facility]: 11/16/20 08:59 Last Admin: 10/17/20 08:07 Dose: 25 mg Documented by: Ondansetron HCl (Ondansetron Inj 2 Mg/Ml 2 Ml Vial) 4 mg IV Q6H PRN PRN Reason: Nausea Stop: 11/15/20 16:42 Pantoprazole Sodium (Pantoprazole 40 Mg Tab) 40 mg PO [facility] Stop: 11/16/20 08:59 Last Admin: 10/17/20 08:07 Dose: 40 mg Documented by: Polyethylene Glycol (Polyethylene (Miralax) 17 Gm Pack) 17 gm PO DAILY PRN PRN Reason: Constipation Stop: 11/15/20 16:42 Vitamin D (Cholecalciferol 1,000 Units 25 Mcg Tab) 2,[facility]: 11/16/20 08:59 Last Admin: 10/17/20 08:07 Dose: 2,000 units Documented by:
--- NOTE | 2020-10-17 11:34 | Hospitalist Progress Note ---
Date of Service October 17, 2020 Assessment & Plan (1) Acute UTI: Plan: Urine culture - GNB, pending full identification will keep on IV ceftriaxone (2) Sepsis: Plan: Resolved Covid-19 is negative Procalcitonin negative Lactic acid not drawn (3) Near syncope: Plan: With a history of syncope and has a loop recorder in place for history of wide- complex tachycardia as well as bradycardia Is in a sinus rhythm here with normal rates Has multiple, 3-4 times a day, episodes of presyncope and syncope for the last 2 weeks-previously thought to be related to hypotension as per daughter May be related to hypotension and febrile illness as above Echocardiogram from 07/2019 with preserved EF 55%, small subtle wall motion abnormality with hypokinesis of the apical anteroseptal segment and mid inferoseptal segment, no significant aortic valvular stenosis, moderate MR, mild TR Troponin negative upon arrival Stop amlodipine and monitor BP Appreciate cardiology review of Linq device (4) Prediabetes: Plan: Hemoglobin A1c in 06/2019 was 6.1% Blood glucose on arrival is mildly elevated at 128 but is nonfasting No need for Accu-Cheks or NovoLog supplemental insulin unless becomes hyperglycemic on morning labs (5) Thoracic ascending aortic aneurysm: Plan: Noted on CT angiogram of the chest in 07/2019 to be mild dilatation of the ascending thoracic aorta measuring up to 4.3 cm diameter Follow as an outpatient Blood pressure control (6) Wide-complex tachycardia: Plan: History of such thought to be possibly rapid atrial fibrillation with aberrancy Follows with cardiology Loop recorder in place Monitor on telemetry (7) Metastatic carcinoid tumor: Plan: Diagnosed in 2016, status post radiation, follows [facility]ology at [facility], Wendy Haque Has known mets to liver, a mesenteric mass Continues on monthly injections of lanreotide (8) Asthma: Plan: Extrinsic asthma exacerbated by allergy symptoms Claritin as needed Is not on any inhalers Consider bronchodilators as needed Chest x-ray is negative (9) Atrial fibrillation: Plan: Currently in sinus rhythm Monitor on telemetry Continue amiodarone, apixaban, metoprolol with hold parameters (10) Hypertension: Plan: Blood pressures intermittently low upon admission Supporting with IV fluids Hold amlodipine Continue home Toprol-XL 25 mg daily with hold parameters (11) Hyperlipidemia: Plan: Not on medication for this (12) GERD (gastroesophageal reflux disease): Plan: No acute issues Continue home PPI (13) Osteoarthritis: Plan: Continue Tylenol as needed for pain (14) Elevated alkaline phosphatase level: Plan: Chronic, lower than previous Has known multiple space-occupying hepatic masses from her carcinoid-most recently the largest measuring 8.[address] abdomen/pelvis on 03/13/2020 (15) DVT prophylaxis: Plan: Apixaban Disposition-continue admission on PCU to monitor for arrhythmias Full code, but does not want prolonged life support if in a state of poor prognosis She designates her daughter as her decision-maker, however she is , but her is in poor health and has bad hearing Admission and Anticipated Discharge Date Admission Date: October 16, 2020 Subjective Patient feels mostly back to her baseline at this time. She denies any dizziness with physical therapy. Sinus bradycardia on telemetry but no arrhythmias. No flank tenderness, fever or chills. Dysuria has resolved. Review of Systems Review of Systems: All systems reviewed & are unremarkable except as noted in HPI & below Physical Exam Constitutional: WD/WN, vitals as above Respiratory: normal respiratory effort, lungs clear to auscultation Cardiovascular: Rate/Rhythm: regular rhythm and + bradycardic Heart Sounds: no murmur Extremities: normal capillary refill; no calf tenderness and no pedal edema Gastrointestinal (Abdomen): normal bowel sounds, soft, nontender, no hepatosplenomegaly Musculoskeletal: no cyanosis or clubbing, extremities motor strength 5/5 Skin: no rashes, warm and dry Neurologic: moves all extremities and awake; no focal motor deficits Psychiatric: A+Ox3, euthymic affect Genitourinary: no CVA tenderness Results & Data Results & Data ([facility]) Vital Signs (Past 12 Hours) Vital Signs Temp Pulse Pulse Resp BP Pulse Ox 10/17/20 10:54 36.5 C 95 H 20 122/63 97 10/17/20 08:00 50 L 10/17/20 07:02 36.6 C 51 L 19 108/59 L 98 10/17/20 03:24 36.6 C 48 L 18 106/66 95 10/16/20 23:46 36.7 C 50 L 18 114/68 98 10/16/20 23:35 50 L PG Care Time/CCT Total # of Minutes Spent Total Time Spent with Patient: Total time spent is greater than 50% in coordination of care (as documented) at patient's floor/unit and/or counseling patient: Coding Level of Care Code 37299 Subseq Hosp Care Lvl 2 Diagnoses Sepsis A41.9 Acute UTI N39.0 Near syncope R55 Prediabetes R73.03 Thoracic ascending aortic aneurysm I71.2 Wide-complex tachycardia I47.2 Metastatic carcinoid tumor C7B.00 Asthma J45.909 Atrial fibrillation I48.91 Hypertension I10 Hyperlipidemia E78.5 GERD (gastroesophageal reflux disease) K21.9 Osteoarthritis M19.90 Elevated alkaline phosphatase level R74.8 DVT prophylaxis Z29.9
[2020-10-17] MEDS: cefTRIAXone SODIUM 1,000 MG in DEXTROSE 5% 50 ML IV SCH (12:03)
[2020-10-17] MEDS ORDERED: MELATONIN 3 MG TAB PO PRN (20:53)
[2020-10-18] MEDS: ONDANSETRON INJ 2 MG/ML 2 ML VIAL IV PRN ×2 (05:55→11:35)
[2020-10-18] MEDS: METOPROLOL SUCC 25MG EXT REL TAB PO SCH (08:57)
[2020-10-18] MEDS: CHOLECALCIFEROL 1,000 UNITS 25 MCG TAB PO SCH (08:57)
[2020-10-18] MEDS: APIXABAN 5 MG TABLET PO SCH (08:57)
[2020-10-18] MEDS: PANTOprazole 40 MG TAB PO SCH (08:57)
[2020-10-18] MEDS: AMIODARONE 200 MG TAB PO SCH (08:57)
[2020-10-18] MEDS: ACETAMINOPHEN 500 MG TAB PO SCH (08:57)
[2020-10-18] MEDS ORDERED: amLODIPine BESYLATE 5 MG TAB PO SCH (09:00)
[2020-10-18 09:26] LABS: Basophils # (auto) 0.02 K/uL (0-0.2); Basophils % (auto) 0.4 %; Eosinophils % (auto) 1.8 %; Hematocrit (blood only) 35.1 % (37-47); Hemoglobin 11.4 g/dL (12.0-16.0); Immature Granulocytes # (auto) 0.02 K/uL (0.00-0.02); Immature Granulocytes % (auto) 0.4 %; Lymphocytes # (auto) 0.71 K/uL (1.2-3.4); Lymphocytes % (auto) 12.9 %; Mean Corpuscular Hemoglobin 31.6 pg (25-34); Mean Corpuscular Hgb Conc 32.5 g/dL (32-36); Mean Corpuscular Volume 97.2 fL (80-100); Mean Platelet Volume 10.5 fL (7.4-10.4); Monocytes # (auto) 0.34 K/uL (0.11-0.59); Monocytes % (auto) 6.2 %; Neutrophils # (auto) 4.32 K/uL (1.4-6.5); Neutrophils % (auto) 78.3 %; Platelet Count 295 K/uL (130-400); RDW Coefficient of Variation 15.6 % (11.5-14.5); RDW Standard Deviation 56.4 fL (36.4-46.3); Red Blood Count 3.61 M/uL (4.2-5.4); White Blood Count 5.51 K/uL (4.8-10.8)
[2020-10-18 09:53] LABS: Albumin Level 2.9 gm/dl (3.4-5.0); BUN Creatinine Ratio 4.9 (10-20); Calcium 8.4 mg/dl (8.5-10.1); Creatinine Clr Calc Pharmacy 38.7 ml/min; Est GFR (African American) 60.9 ml/min; Est GFR (Non-African American) 52.5 ml/min; Potassium 3.6 mmol/L (3.5-5.1)
[2020-10-18 09:56] LABS: Albumin Globulin Ratio 0.8 (0.9-2); Bilirubin,Total 0.5 mg/dl (0.2-1); Globulin 3.8 gm/dl (2.5-4.0); Total Protein 6.7 gm/dl (6.4-8.2)
[2020-10-18] MEDS: cefTRIAXone SODIUM 1,000 MG in DEXTROSE 5% 50 ML IV SCH (11:34)
--- NOTE | 2020-10-18 12:28 | Hospitalist Progress Note ---
Date of Service October 18, 2020 Assessment & Plan (1) Acute UTI: Plan: Urine culture - GNB, pending full identification will keep on IV ceftriaxone (2) Sepsis: Plan: Resolved Covid-19 is negative Procalcitonin negative Lactic acid not drawn (3) Near syncope: Plan: With a history of syncope and has a loop recorder in place for history of wide- complex tachycardia as well as bradycardia Is in a sinus rhythm here with normal rates Has multiple, 3-4 times a day, episodes of presyncope and syncope for the last 2 weeks-previously thought to be related to hypotension as per daughter May be related to hypotension and febrile illness as above Echocardiogram from 07/2019 with preserved EF 55%, small subtle wall motion abnormality with hypokinesis of the apical anteroseptal segment and mid inferoseptal segment, no significant aortic valvular stenosis, moderate MR, mild TR Troponin negative upon arrival Stop amlodipine and monitor BP Appreciate cardiology review of Linq device (4) Prediabetes: Plan: Hemoglobin A1c in 06/2019 was 6.1% Blood glucose on arrival is mildly elevated at 128 but is nonfasting No need for Accu-Cheks or NovoLog supplemental insulin unless becomes hyperglycemic on morning labs (5) Thoracic ascending aortic aneurysm: Plan: Noted on CT angiogram of the chest in 07/2019 to be mild dilatation of the ascending thoracic aorta measuring up to 4.3 cm diameter Follow as an outpatient Blood pressure control (6) Wide-complex tachycardia: Plan: History of such thought to be possibly rapid atrial fibrillation with aberrancy Follows with cardiology Loop recorder in place Monitor on telemetry (7) Metastatic carcinoid tumor: Plan: Diagnosed in 2016, status post radiation, follows with oncology at [facility], Wendy Haque Has known mets to liver, a mesenteric mass Continues on monthly injections of lanreotide (8) Asthma: Plan: Extrinsic asthma exacerbated by allergy symptoms Claritin as needed Is not on any inhalers Consider bronchodilators as needed Chest x-ray is negative (9) Atrial fibrillation: Plan: Currently in sinus rhythm Monitor on telemetry Continue amiodarone, apixaban, metoprolol with hold parameters (10) Hypertension: Plan: Blood pressures intermittently low upon admission Supporting with IV fluids Hold amlodipine Continue home Toprol-XL 25 mg daily with hold parameters (11) Hyperlipidemia: Plan: Not on medication for this (12) GERD (gastroesophageal reflux disease): Plan: No acute issues Continue home PPI (13) Osteoarthritis: Plan: Continue Tylenol as needed for pain (14) Elevated alkaline phosphatase level: Plan: Chronic, lower than previous Has known multiple space-occupying hepatic masses from her carcinoid-most recently the largest measuring 8.[address] abdomen/pelvis on 03/13/2020 (15) DVT prophylaxis: Plan: Apixaban Disposition-continue admission on PCU to monitor for arrhythmias Full code, but does not want prolonged life support if in a state of poor prognosis She designates her daughter as her decision-maker, however she is , but her is in poor health and has bad hearing Admission and Anticipated Discharge Date Admission Date: October 16, 2020 Subjective Gets sick to her stomach everytime she has a bowel movement. Releived with ondanasetron currently. Results & Data Results & Data ([facility]) Vital Signs (Past 12 Hours) Vital Signs Temp Pulse Pulse Resp BP Pulse Ox 10/18/20 10:47 36.7 C 46 L 18 103/60 94 10/18/20 08:00 54 L 10/18/20 06:57 36.6 C 50 L 19 158/79 H 97 10/18/20 03:59 36.5 C 47 L 18 155/72 H 95 PG Care Time/CCT Total # of Minutes Spent Total Time Spent with Patient: Total time spent is greater than 50% in coordination of care (as documented) at patient's floor/unit and/or counseling patient: Coding Diagnoses Acute UTI N39.0 Sepsis A41.9 Near syncope R55 Prediabetes R73.03 Thoracic ascending aortic aneurysm I71.2 Wide-complex tachycardia I47.2 Metastatic carcinoid tumor C7B.00 Asthma J45.909 Atrial fibrillation I48.91 Hypertension I10 Hyperlipidemia E78.5 GERD (gastroesophageal reflux disease) K21.9 Osteoarthritis M19.90 Elevated alkaline phosphatase level R74.8 DVT prophylaxis Z29.9
--- NOTE | 2020-10-18 16:21 | Cardiology Progress Note ---
Date of Service October 18, 2020 Assessment & Plan (1) Near syncope: (2) Bradycardia: (3) Metastatic carcinoid tumor: (4) PAF (paroxysmal atrial fibrillation): Plan: 75-year-old female, well-known to the undersigned as I am her outpatient primary drivability technician, presents with episode of near syncope. She describes generalized weakness, loss of postural tone while already sitting in a chair. No injuries noted. EKG performed 10/16/2020 at time of arrival revealed sinus rhythm with incomplete left bundle branch block. Patient has history of carcinoid tumor with previous chemotherapy and findings of ongoing metastatic disease on CT of the abdomen performed in February,. The patient was followed by the undersigned during hospital stay in July,. At that time she had presented with chest discomfort. An EKG performed by EMS upon arrival to her home revealed a wide-complex tachycardia at 235 bpm for which the patient received a bolus of IV amiodarone and subsequently was found to have converted to atrial fibrillation with rapid ventricular response in the range of 144 bpm with noted severe [address] segment depression in the precordial and lateral leads. Her troponin at that time peaked at 3.4 and she underwent cardiac catheterization with findings of angiographically normal coronary arteries. Left ventricular systolic function was normal. Ultimately it was uncertain whether or not she had a transient ventricular arrhythmia or a supraventricular tachycardia with aberrant conduction. She therefore underwent implantation of a LINQ loop recorder. Loop recorder is set to record tachycardia episodes of greater than 146 bpm for greater than 16 beats and bradycardia episodes less than 40 bpm or pauses of greater than 3 seconds in duration. Patient is noted to have sinus bradycardia with rates in the 45 to 50 bpm range during this hospital stay, but on interrogation of her loop recorder, no profound tachycardia or bradycardia events were observed to correlate with her recent episode. She has been treated with metoprolol succinate 25 mg daily and amiodarone 200 mg daily for suppression of the previous tachycardia (both wide-complex tachycardia and paroxysmal atrial fibrillation) successfully for the last year. At this time given the patient's generalized fatigue and presentation with near syncope I recommend reducing the metoprolol succinate from 25 mg daily to 12.5 mg daily. Continue amiodarone 200 mg daily. With regards to her amlodipine dose. Although recent primary care notes describe dose of 5 mg twice daily as does her admission medication list, I called her outpatient pharmacy, [facility]. The patient confirmed that this is the only pharmacy where she gets medications. The only prescription for amlodipine is 2.5 mg daily, was prescribed by the undersigned, it was last filled by the patient on 09/25/2020. At present however, I favor discontinuing her amlodipine, and observing her off of this medication. Future considerations include permanent pacemaker implantation, however think it is prudent to cut back her medications first. Otherwise it is noted that she has a history of a sending thoracic aortic aneurysm, this was last visualized on CT of the chest with contrast performed February,, with stable measurement of 4.3 cm. The patient is stable for discharge from a cardiac perspective with changes as noted above. She has a follow up visit with me scheduled for 12/25/20, I will have this moved up. Summary of changes: Reduce metoprolol succinate to 12.5 mg daily. Discontinue amlodipine 2.5 mg daily. Admission and Anticipated Discharge Date Admission Date: October 16, 2020 Subjective Patient seen in cardiology follow-up. She notes generalized tiredness, otherwise no complaints. Blood pressure this morning had been 103/60, on repeat at 1600 it was 142/76. Telemetry reveals ongoing sinus bradycardia in the range of 45 to 50 bpm. Review of Systems Review of Systems: All systems reviewed & are unremarkable except as noted in HPI & below Physical Exam Physical Exam: Temp Pulse Resp BP Pulse Ox 36.4 C L 47 L 19 142/76 H 99 10/18/20 16:01 10/18/20 16:01 10/18/20 16:01 10/18/20 16:01 10/18/20 16:01 Constitutional: WD/WN, vitals as above Respiratory: normal respiratory effort, lungs clear to auscultation Cardiovascular: RRR, no murmur, no edema Gastrointestinal (Abdomen): normal bowel sounds, soft, nontender, no hepatosplenomegaly Neurologic: PERRL, EOMI, accommodation nl, no face palsy, no dysarthria Results & Data ([facility]) Vital Signs (Past 12 Hours) Vital Signs Temp Pulse Pulse Resp BP Pulse Ox 10/18/20 16:01 36.4 C L 47 L 19 142/76 H 99 10/18/20 15:18 49 L 10/18/20 10:47 36.7 C 46 L 18 103/60 94 10/18/20 08:00 54 L 10/18/20 06:57 36.6 C 50 L 19 158/79 H 97 Laboratory Results Cardiac Enzymes 10/18/20 Range/Units 08:57 AST 26 (15-37) U/L CBC 10/18/20 Range/Units 08:57 WBC 5.51 (4.8-10.8) K/uL RBC 3.61 L (4.2-5.4) M/uL Hgb 11.4 L (12.0-16.0) g/dL Hct 35.1 L (37-47) % Plt Count 295 (130-400) K/uL Neut # (Auto) 4.32 (1.4-6.5) K/uL Lymph # (Auto) 0.71 L (1.2-3.4) K/uL [place] # (Auto) 0.34 (0.11-0.59) K/uL Eos # (Auto) 0.10 (0-0.5) K/uL Baso # (Auto) 0.02 (0-0.2) K/uL Comprehensive Metabolic Panel 10/18/20 Range/Units 08:57 Sodium 143 (136-145) mmol/L Potassium 3.6 (3.5-5.1) mmol/L Chloride 111 H (98-107) mmol/L Carbon Dioxide 26 (21-32) mmol/L BUN 5 L (7-18) mg/dl Creatinine 1.04 (0.6-1.2) mg/dl Glucose 220 H (70-99) mg/dl Calcium 8.4 L (8.5-10.1) mg/dl AST 26 (15-37) U/L ALT 21 (12-78) U/L Alkaline Phosphatase 135 H (45-117) U/L Total Protein 6.7 (6.4-8.2) gm/dl Albumin 2.9 L (3.4-5.0) gm/dl Intake and Output 10/18/20 10/18/20 10/18/20 06:59 14:59 22:59 Intake Total 100 / 1210 550 / 550 Output Total Balance 100 / 1210 549 / 549 Intake: IV 50 / 50 cefTRIAXone SODIUM 1,000 mg In 50 / 50 Dextrose 5% 50 ml @ 100 mls/hr IV Q24H [facility] Rx#:[id number] Oral 100 / 860 500 / 500 Output: # Bowel Movements Other: Weight 57.4 kg Weight Measurement Method Built in [facility]
[2020-10-19] MEDS ORDERED: METOPROLOL SUCC 25MG EXT REL TAB PO SCH (09:00)
--- NOTE | 2020-10-20 14:51 | Discharge Summary ---
Date of Service October 18, 2020 Admission HPI Per Admitting Provider This patient is a 75-year-old female with history of prediabetes, atrial fibrillation on Eliquis and amiodarone, HTN, neuroendocrine carcinoma, and syncope, who presents to the ER with multiple episodes of near syncope and syncope. She has had numerous episodes of feeling weak and dizzy with any kind of activity such as walking. Today she went to make breakfast and felt generally weak and had to sit down and lowered her head to the table but did not lose consciousness. She has not had any falls or injuries. There have been a few times where she passed the hallway out in the last 2 weeks. Because this is happened to her in the past, her daughter was not overly concerned, but the patient's called for an ambulance today. She denies any heart palpitations. She has had sweats at home but no chills or fevers that she knows of. She did have some abdominal pain with urinating yesterday. No constipation or diarrhea. She has a chronic cough which she says is related to allergy symptoms and asthma. Denies headache, numbness/tingling/focal weakness. She feels generally weak all over. Of note, she has a loop recorder in place for the past year due to previous episodes of syncope and was due to see her pressure sealer and tester tomorrow. She frequently has bradycardia down to the 30s as per her daughter. In the ER, she was noted to be febrile with an occasional low blood pressure but mostly elevated blood pressures. She had a leukocytosis, mild renal insufficiency, and evidence of UTI on urinalysis. CT of the head was negative. She was given a dose of ceftriaxone and IV fluids. She will be admitted for sepsis, UTI, generalized weakness, and syncope/presyncope. Principal Diagnosis Acute urinary tract infection Syncope due to hypotension and bradycardia Discharge Exam Constitutional WD/WN, vitals as above Respiratory normal respiratory effort, lungs clear to auscultation Cardiovascular Rate/Rhythm: regular rhythm and + bradycardic Gastrointestinal (Abdomen) normal bowel sounds, soft, nontender, no hepatosplenomegaly Psychiatric A+Ox3, euthymic affect Discharge Data Allergies Allergy/AdvReac Type Severity Reaction Status Date / Time nut - unspecified Allergy Severe throat Verified 10/16/20 11:25 swelling aspirin Allergy Intermediate "ASTHMA" Verified 10/16/20 11:25 celecoxib Allergy Intermediate "ASTHMA Verified 10/16/20 11:25 ATTACK" codeine Allergy Intermediate "FACE Verified 10/16/20 11:25 PUFFS UP" morphine Allergy Intermediate "FACE Verified 10/16/20 11:25 PUFFS UP" latex Allergy Mild RASH Verified 10/16/20 11:25 caffeine AdvReac Intermediate HEADACHE Verified 10/16/20 11:25 midazolam AdvReac Intermediate extreme Verified 10/16/20 11:25 anxiety fentanyl AdvReac Mild DELIRIUM Verified 10/16/20 11:25 lorazepam AdvReac Mild ANXIOUS Verified 10/16/20 11:25 Consultations 10/16/20 13:04 ED Decision to Admit Stat 10/16/20 16:43 Consult Cardiology Routine Ordered Studies 10/16/20 11:18 CT head/brain wo con Stat IMPRESSION: There is no hemorrhage, mass effect, or evidence of acute territorial ischemia by CT criteria. Hospital Course (1) Acute UTI: (2) Sepsis: (3) Near syncope: (4) Prediabetes: (5) Thoracic ascending aortic aneurysm: (6) Wide-complex tachycardia: (7) Metastatic carcinoid tumor: (8) Asthma: (9) Atrial fibrillation: (10) Hypertension: (11) Hyperlipidemia: (12) GERD (gastroesophageal reflux disease): (13) Osteoarthritis: (14) Elevated alkaline phosphatase level: (15) DVT prophylaxis: Sofia Garzon is a 75 year old female admitted to [facility] from October 16 - 2020 due to multiple episodes of syncope and presyncope. She was diagnosed with a urinary tract infection. Urine culture grew Enterobacter cloacae resistant to Macrobid. She was treated with 3 days of IV ceftriaxone and will be switched to cefdinir on discharge. Blood cultures have been negative. Her UTI explains her recent deterioration however she has been having ongoing presyncope not related to her recent UTI. She was reviewed by cardiology and recommended discontinuing her amlodipine (note she was only taking 2.5mg PO daily prior to admission) and reducing her metoprolol to 12.5mg PO daily as prescribed below. She will follow up with cardiology as an outpatient. Total Time Total Time Spent Total Time Spent (In Minutes): 35 Discharge Plan Discharge Items Patient Disposition: Home - Home Health Services Reason For Visit: SYNCOPE, UTI Discharge Diagnosis: Acute urinary tract infection Syncope (fainting) due to low blood pressure and low heart rate Activity: Resume your previous activity Non-emergency contact: Oxygen Furnace Operator Call non-emergency contact if: you have any medication questions and your symptoms worsen Follow-up/Referrals: Vicenta Gilbert DO [Primary Care Provider] - Diet: Heart Healthy Addtl Attending Provider Instructions: You were admitted to [facility] from October 16 - 2020 due to multiple episodes of syncope and presyncope. You were diagnosed with a urinary tract infection. Urine culture grew Enterobacter cloacae resistant to Macrobid. You were successfully treated with intravenous ceftriaxone during your inpatient stay and will be discharged on cefdinir for a total of 7 days of antibiotics. Blood cultures have been negative. Your UTI explains your recent deterioration however you have also been having ongoing issues with this therefore your pressure sealer and tester was consulted to aid in your care. Recommended discontinuing your amlodipine as this may be reducing your blood pressure too much. Due to persistent low heart rate also recommend reducing your metoprolol to 12.5mg PO daily as prescribed below. Please follow up with your pressure sealer and tester - appointment to be brought up by their office. Kind regards, Dr Galindo Grimaldo Pending Studies at Discharge: No Stand-Alone Forms: My [facility], Smoking Cessation Medications and DC Order Prescriptions: New cefdinir 300 mg capsule 300 mg PO BID 4 Days Qty: 8 RF: 0 Continued (DME) lancets [Accu-Chek Softclix Lancets] Misc See Rx Instructions .ROUTE .MEDSUPPLY Qty: 100 RF: 2 Eliquis 5 mg tablet 5 mg PO BID Qty: 60 RF: 2 amiodarone 200 mg tablet 200 mg PO QAM RF: 0 pantoprazole 40 mg tablet,delayed release (DR/EC) 40 mg PO QAM RF: 0 Somatuline [place] 120 mg/0.5 mL syringe 0 mg SQ Q4WK RF: 0 cholecalciferol (vitamin D3) [Vitamin D3] 2,000 unit Capsule 2,000 units PO QAM RF: 0 acetaminophen [Tylenol Extra Strength] 500 mg Tablet 1,000 mg PO AMHS RF: 0 loratadine [Claritin] 10 mg Tablet 10 mg PO QAM PRN (Reason: ALLERGIES) RF: 0 Changed metoprolol succinate 25 mg tablet extended release 24 hr 12.5 mg PO QAM Qty: 0 RF: 0 Discontinued amlodipine 5 mg tablet 5 mg PO BID RF: 0 Discharge Orders: Discharge Order (Routine); Ordered 10/18/20 Ordered By: Galindo Mariscal/Other Patient Handouts: Urinary Tract Infections in Women Admission Data Admit Date/Time: 10/16/20 14:14 Attending Provider: Galindo Grimaldo Admit Provider: Ivonne Bah Primary Care Provider: Vicenta Gilbert Other Providers: Ivonne Bah ; [facility] Other Interventions: Discharge Summary Assessment (RN) Last Done: 10/18/20 17:18 Coding Level of Care Code D/C DAY MANAGEMENT >30 MINS Diagnoses Acute UTI N39.0 Sepsis A41.9 Near syncope R55 Prediabetes R73.03 Thoracic ascending aortic aneurysm I71.2 Wide-complex tachycardia I47.2 Metastatic carcinoid tumor C7B.00 Asthma J45.909 Atrial fibrillation I48.91 Hypertension I10 Hyperlipidemia E78.5 GERD (gastroesophageal reflux disease) K21.9 Osteoarthritis M19.90 Elevated alkaline phosphatase level R74.8 DVT prophylaxis Z29.9
== END 2020-10-18 18:20 | disposition home health service (06) | DRG 872 ==
LOC: ED 10:19 → 2S 14:14 → SUATTDRO 14:14 → 2S 16:03

== ENCOUNTER 2021-01-11 15:10 | Inpatient (IN) ==
[2021-01-11] MEDS ORDERED: ONDANSETRON INJ 2 MG/ML 2 ML VIAL IV STA ×2 (15:59→17:29)
--- NOTE | 2021-01-11 16:05 | Emergency Department Note ---
Impression & Plan 2019 novel coronavirus-infected pneumonia (NCIP), Hypoxia, Elevated troponin, Weakness, Nausea ED Provider Note Provider: Renaldo Bernard MD DATE OF SERVICE: 01/11/2021 CHIEF COMPLAINT: Weakness, cough, nausea HISTORY OF PRESENT ILLNESS: Patient is a 75-year-old female history of paroxysmal atrial fibrillation on Eliquis, GERD, thoracic ascending aortic aneurysm, carcinoid cancer on therapy, hypertension, and recent diagnosis of Covid 2 days ago presenting here complaining of nausea with decreased food intake, cough, and some weakness. Reports some shortness of breath and dry cough. States has been symptomatic for over a week. Was on prednisone the beginning a month and has a underlying history of asthma. States she been using some Tylenol at home. Denies significant new leg swelling at this time. Denies significant abdominal pain at this time. Did have an episode of some weakness earlier today and fell onto her right side against her right lateral chest wall. States some pain here. Denies striking her head or loss of conscious at this time. Patient states she is not normally on oxygen but EMS reports they found the patient be hypoxic and placed her on oxygen. She is not vaccinated for Covid. REVIEW OF SYSTEMS: A total of 10 review of systems was obtained and negative except as stated above in the HPI. PAST MEDICAL HISTORY: As noted above MEDICATIONS: Reviewed home medications includes Eliquis SOCIAL HISTORY: Non-smoker, lives at home with family PHYSICAL EXAM: GENERAL: alert and oriented in no acute distress on stretcher, fatigued in appearance however Head: normocephalic and atraumatic EYES: No injection, discharge or icterus. NECK: Trachea midline. Supple without significant tenderness ENT: Mucous membranes pink and moist. LUNGS: Airway patent. No retractions. Breath sounds clear HEART: Regular rate and rhythm. Some right lateral chest wall tenderness approximately the 5th-6th rib area in the axilla without overlying bruising or c repitus. ABDOMEN: Soft and non-tender, without guarding or rebound. SKIN: Acyanotic, warm, dry, without rashes EXTREMITIES: Without tenderness or deformity with trace leg swelling. NEUROLOGICAL: No focal deficits moving all extremities No aphasia. No facial droop or slurred speech. EK bpm sinus bradycardia. No PVC or PAC. No acute ST segment elevation with inferior lateral T wave inversions noted. QTc 457. Mild interventricular conduction delay noted. CONTINUOUS CARDIAC MONITORING: was ordered and showed a heart rate of 50s to 60sbpm in normal sinus rhythm to sinus bradycardia GCS 15. Patient's laboratory studies and imaging reviewed. Differential includes traumatic, infection, dehydration, metabolic abnormality, hypo/hyperglycemia, electrolyte disturbance, anemia, hypoxia, cardiac sources, intracerebral event, toxicologic, neurologic, as well as other pathologies. IMPRESSION/MEDICAL DECISION MAKING: Patient tested positive for Covid roughly 3 to 4 days ago. Has been symptomatic it seems like for about 12 days at least. Given the hypoxia with Covid given a dose of dexamethasone here. Given some Zofran for nausea. Nausea seems to be her primary complaint with to a lesser degree generalized weakness and shortness of breath as a part of this. Reports she had a fall in the bathroom today falling onto her right chest wall with some pain in this area. States she did not strike her head or lose consciousness and denies any headache or dizziness at this time however given her Eliquis usage will complete a CT the head. CT the head and chest per radiology reassuring without acute traumatic injury noted. Inflammatory changes with Covid noted. Again is on 2 L of nasal cannula oxygen at the time which is new for the patient. Denies significant neck pain or abdominal pain at this time. Blood work returns without significant leukocytosis and minimal anemia. Mildly elevated troponin with the patient denies significant chest pain. Again Covid test is positive. No severe AST or ALT abnormality noted. CRP significantly elevated. Patient given additional dose of Zofran she is still complaining some nausea. Slight troponin elevation noted but again the patient denies chest pain. Believe this troponin elevation is likely related to hypoxia and her general illness related to her Covid. Patient is already anticoagulated on Eliquis and want to additional at this time. She states she is feeling significantly weak and is having difficulty ambulating due to this weakness here. Will have the hospitalist evaluate for further care here at the hospital. DIAGNOSIS: Hypoxia, COVID-19, nausea, elevated troponin, weakness DISPOSITION: Hospitalist will evaluate Patient was agreeable with this plan. Critical Care I have personally spent 31 minutes of critical care time in the direct management of this patient. This includes bedside care, interpretation of diagnostic studies, and testing, discussion with consultants, patient, and other required patient management activities. These 31 minutes is in excess of all separately billable procedures. Past Med/Surg History Medical History Anal fistula Asthma Atrial fibrillation Coronary vasospasm Elevated alkaline phosphatase level Food allergy, peanut GERD (gastroesophageal reflux disease) Hyperlipidemia Hypertension Liver cancer Metastatic carcinoid tumor (2016) NSTEMI (non-ST elevated myocardial infarction) Osteoarthritis Partial bowel obstruction Prediabetes Proctocolitis Sustained ventricular tachycardia Syncope Thoracic ascending aortic aneurysm Wide-complex tachycardia Surgical History History of cardiac cath History of dilatation and curettage History of liver biopsy History of tonsillectomy and adenoidectomy History of tooth extraction S/P appendectomy S/P cholecystectomy S/P total hysterectomy and bilateral salpingo-oophorectomy Family History Sister Family history of diabetes mellitus Myocardial infarction Father Myocardial infarction, Onset Age: 49 Brother CHF (congestive heart failure) Mother Lung cancer Denies family history of Ovarian cancer Prostate cancer Breast cancer Colorectal cancer Social History Smoking Status: Never smoker Second Hand Exposure: No; Hx Alcohol Use: No Hx Substance Use: No Preferred Language: Burkinan Communication Ability: Effective Visual Impairment: Limited Hearing Ability: Normal 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 Beliefs That Will Affect Care: None marital status: Current Living Situation: Family Current Living Situation Comment: spouse, daughter and her family current occupational status: retired 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 Feels Safe at Home: Yes Childhood Exposure to Second-Hand Smoke: No caffeine: Yes (occasional soda) during the past year weight has: remained stable Dental Care, Regularly: No Physical Activity Frequency: Daily Seatbelt Use: always Sunscreen Use: Yes Assistive Devices: Walker Allergies Allergies Allergy/AdvReac Type Severity Reaction Status Date / Time nut - unspecified Allergy Severe throat Verified 01/11/21 15:42 swelling aspirin Allergy Intermediate "ASTHMA" Verified 01/11/21 15:42 celecoxib Allergy Intermediate "ASTHMA Verified 01/11/21 15:42 ATTACK" codeine Allergy Intermediate "FACE Verified 01/11/21 15:42 PUFFS UP" morphine Allergy Intermediate "FACE Verified 01/11/21 15:42 PUFFS UP" latex Allergy Mild RASH Verified 01/11/21 15:42 caffeine AdvReac Intermediate HEADACHE Verified 01/11/21 15:42 midazolam AdvReac Intermediate extreme Verified 01/11/21 15:42 anxiety fentanyl AdvReac Mild DELIRIUM Verified 01/11/21 15:42 lorazepam AdvReac Mild ANXIOUS Verified 01/11/21 15:42 Home Meds Home Medications Medication Instructions Recorded Confirmed cholecalciferol (vitamin D3) 50 2,000 units PO QAM 04/09/18 01/11/21 mcg (2,000 unit) capsule (Vitamin D3) lanreotide 120 mg/0.5 mL 0 mg SQ Q4WK ml 12/13/18 01/11/21 subcutaneous syringe (Somatuline Depot) acetaminophen 500 mg tablet 1,000 mg PO AMHS 09/06/19 01/11/21 (Tylenol Extra Strength) loratadine 10 mg tablet (Claritin) 10 mg PO QAM PRN 09/06/19 01/11/21 amiodarone 200 mg tablet 200 mg PO QAM 10/06/20 01/11/21 Previous Rx's Medication Instructions Recorded apixaban 5 mg tablet (Eliquis) 5 mg PO BID #60 tab 06/16/20 lancets (Accu-Chek Softclix #100 ea 06/17/20 Lancets) albuterol sulfate 90 mcg/actuation 1 puff INHALATION QID PRN #6.7 g 12/23/20 aerosol inhaler prednisone 10 mg tablet See Rx Instructions PO DAILY #20 12/23/20 tab Results & Data (ED) Vital Signs Vital Signs - 24 hr 01/11/21 15:17 01/11/21 15:21 01/11/21 15:30 Temperature 36.7 C Temperature Source Oral Pulse Rate 60 57 L 54 L Pulse Rate from SpO2 Sensor 60 54 L Pulse Rhythm Regular Respiratory Rate 20 12 10 L Respiratory Effort / Characteristics Non-Labored Spontaneous Respiratory Depth Normal Respiratory Pattern Regular Blood Pressure 110/66 Blood Pressure Mean 80 Blood Pressure Position Sitting Pulse Oximetry 95 97 97 Oxygen Delivery Method Nasal Cannula Oxygen Flow Rate 2 Sepsis Recent Fever Within 48 Hours No Sepsis New/Unexplained Change in Mental Status N/A Sepsis Action Taken by Nursing No Action Required 01/11/21 15:36 01/11/21 16:00 01/11/21 16:03 Temperature Temperature Source Pulse Rate 54 L Pulse Rate from SpO2 Sensor 55 L Pulse Rhythm Respiratory Rate 15 Respiratory Effort / Characteristics Non-Labored Spontaneous Respiratory Depth Normal Respiratory Pattern Regular Blood Pressure Blood Pressure Mean Blood Pressure Position Pulse Oximetry 97 95 97 Oxygen Delivery Method Nasal Cannula Nasal Cannula Oxygen Flow Rate 2 2 Sepsis Recent Fever Within 48 Hours Sepsis New/Unexplained Change in Mental Status Sepsis Action Taken by Nursing 01/11/21 16:30 01/11/21 17:00 Temperature Temperature Source Pulse Rate 50 L Pulse Rate from SpO2 Sensor 50 L 51 L Pulse Rhythm Respiratory Rate 15 Respiratory Effort / Characteristics Respiratory Depth Respiratory Pattern Blood Pressure 100/64 Blood Pressure Mean 76 Blood Pressure Position Pulse Oximetry 96 96 Oxygen Delivery Method Oxygen Flow Rate Sepsis Recent Fever Within 48 Hours Sepsis New/Unexplained Change in Mental Status Sepsis Action Taken by Nursing Laboratory Data Result diagrams: 01/11/21 15:30 01/11/21 15:30 Lab Results 01/11/21 01/11/21 01/11/21 Range/Units 15:30 15:30 15:30 WBC 5.48 (4.8-10.8) K/uL RBC 3.69 L (4.2-5.4) M/uL Hgb 10.7 L (12.0-16.0) g/dL Hct 33.8 L (37-47) % MCV 91.6 (80-100) fL MCH 29.0 (25-34) pg MCHC 31.7 L (32-36) g/dL RDW Std Deviation 53.8 H (36.4-46.3) fL RDW Coeff of Myra 16.0 H (11.5-14.5) % Plt Count 462 H (130-400) K/uL MPV 10.0 (7.4-10.4) fL Immature Gran % (Auto) 0.5 % Neut % (Auto) 84.5 % Lymph % (Auto) 8.2 % Castro % (Auto) 6.6 % Eos % (Auto) 0.0 % Baso % (Auto) 0.2 % Neut # (Auto) 4.63 (1.4-6.5) K/uL Lymph # (Auto) 0.45 L (1.2-3.4) K/uL Castro # (Auto) 0.36 (0.11-0.59) K/uL Eos # (Auto) 0.00 (0-0.5) K/uL Baso # (Auto) 0.01 (0-0.2) K/uL Immature Gran # (Auto) 0.03 H (0.00-0.02) K/uL PT 11.8 (9.0-12.0) Seconds INR 1.2 H (0.9-1.1) Sodium 137 (136-145) mmol/L Potassium 3.3 L (3.5-5.1) mmol/L Chloride 101 (98-107) mmol/L Carbon Dioxide 27 (21-32) mmol/L Anion Gap 9.0 (3-11) BUN 8 (7-18) mg/dl Creatinine 1.19 (0.6-1.2) mg/dl Est Cr Clr Drug Dosing 35.3 ml/min Est GFR ( Amer) 51.7 ml/min Est GFR (Non-Af Amer) 44.6 ml/min BUN/Creatinine Ratio 6.8 L (10-20) Glucose 119 H (70-99) mg/dl Calcium 7.8 L (8.5-10.1) mg/dl Magnesium 2.5 H (1.8-2.4) mg/dl Total Bilirubin 0.4 (0.2-1) mg/dl AST 34 (15-37) U/L ALT 16 (12-78) U/L Alkaline Phosphatase 127 H (45-117) U/L Troponin I 0.050 H* (0-0.045) ng/ml C-Reactive Protein 12.00 H (0-0.29) mg/dl Total Protein 6.4 (6.4-8.2) gm/dl Albumin 2.0 L (3.4-5.0) gm/dl Globulin 4.4 H (2.5-4.0) gm/dl Albumin/Globulin Ratio 0.5 L (0.9-2) TSH 1.940 (0.300-4.500) uIu/ml COVID-19 Eval Order SARS-CoV-2 (PCR) (Negative) 01/11/21 01/11/21 Range/Units 16:20 16:20 WBC (4.8-10.8) K/uL RBC (4.2-5.4) M/uL Hgb (12.0-16.0) g/dL Hct (37-47) % MCV (80-100) fL MCH (25-34) pg MCHC (32-36) g/dL RDW Std Deviation (36.4-46.3) fL RDW Coeff of Myra (11.5-14.5) % Plt Count (130-400) K/uL MPV (7.4-10.4) fL Immature Gran % (Auto) % Neut % (Auto) % Lymph % (Auto) % Castro % (Auto) % Eos % (Auto) % Baso % (Auto) % Neut # (Auto) (1.4-6.5) K/uL Lymph # (Auto) (1.2-3.4) K/uL Castro # (Auto) (0.11-0.59) K/uL Eos # (Auto) (0-0.5) K/uL Baso # (Auto) (0-0.2) K/uL Immature Gran # (Auto) (0.00-0.02) K/uL PT (9.0-12.0) Seconds INR (0.9-1.1) Sodium (136-145) mmol/L Potassium (3.5-5.1) mmol/L Chloride (98-107) mmol/L Carbon Dioxide (21-32) mmol/L Anion Gap (3-11) BUN (7-18) mg/dl Creatinine (0.6-1.2) mg/dl Est Cr Clr Drug Dosing ml/min Est GFR ( Amer) ml/min Est GFR (Non-Af Amer) ml/min BUN/Creatinine Ratio (10-20) Glucose (70-99) mg/dl Calcium (8.5-10.1) mg/dl Magnesium (1.8-2.4) mg/dl Total Bilirubin (0.2-1) mg/dl AST (15-37) U/L ALT (12-78) U/L Alkaline Phosphatase (45-117) U/L Troponin I (0-0.045) ng/ml C-Reactive Protein (0-0.29) mg/dl Total Protein (6.4-8.2) gm/dl Albumin (3.4-5.0) gm/dl Globulin (2.5-4.0) gm/dl Albumin/Globulin Ratio (0.9-2) TSH (0.300-4.500) uIu/ml COVID-19 Eval Order Covid19 at [facility] SARS-CoV-2 (PCR) POSITIVE A* (Negative) Administered Medications Acetaminophen (Acetaminophen 325 Mg Tab) 650 mg PO Q4H PRN PRN Reason: Pain or Fever Stop: 02/10/21 17:40 Last Admin: 01/11/21 20:04 Dose: 650 mg Documented by: [id number] Discontinued Medications Dexamethasone Sodium Phosphate (DexamethasonePf 10 Mg/Ml Vial) 6 mg IV NOW ONE Stop: 01/11/21 16:58 Last Admin: 01/11/21 17:43 Dose: 6 mg Documented by: [id number] Remdesivir 200 mg/ Sodium (Chloride) 250 mls @ 125 mls/hr IV ONE ONE; Protocol Stop: 01/11/21 19:59 Last Admin: 01/11/21 18:26 Dose: 125 mls/hr Documented by: [id number] Ondansetron HCl (Ondansetron Inj 2 Mg/Ml 2 Ml Vial) 4 mg IV NOW STA Stop: 01/11/21 16:00 Last Admin: 01/11/21 16:12 Dose: 4 mg Documented by: [id number] Ondansetron HCl (Ondansetron Inj 2 Mg/Ml 2 Ml Vial) 4 mg IV NOW STA Stop: 01/11/21 17:30 Last Admin: 01/11/21 17:43 Dose: 4 mg Documented by: [id number] Imaging Data Radiologist's Impression: Chest CT 01/11/21 15:59 CT chest diagnostic wo con CLINICAL HISTORY: fall, R thoracic axillary pain, covid TECHNIQUE: Multidetector row helical CT of the chest was performed. Coronal and sagittal reformations were obtained. Automated dose lowering techniques and/or adjustment according to patient size were utilized for this exam. Comparison: Comparison is made to CT chest 01/11/2021 FINDINGS: Lungs and pleura: Diffuse reticular opacities are seen with scattered gr oundglass opacities as well. Heart and pericardium: Heart size is normal. No pericardial effusion. Vessels: The pulmonary trunk is enlarged measuring 37 mm in diameter. Ascending aorta measures 41 mm in diameter. Scattered atherosclerotic calcifications are seen. Mediastinum and corie: Unremarkable. Chest wall and lower neck: Unremarkable. Abdomen: Partial visualization of ill-defined hypodensities in the liver consistent with known metastatic disease. Bones: Unremarkable. IMPRESSION: 1. Groundglass and reticular opacities compatible with history of viral pneumonia. 2. No evidence of acute fracture in this patient with fall and right axillary pain. 3. Pulmonary hypertension and descending aortic aneurysm. ACT 112: Negative or not required by law. Electronically signed by: Dileep Castro M.D. 01/11/2021 5:07 PM Chest X-Ray 01/11/21 15:59 XR chest 1V portable CLINICAL HISTORY: weakness, COVID, fall TECHNIQUE: Single frontal radiograph of the chest was obtained. Comparison: Comparison is made to chest one view 10/16/2020 FINDINGS: Loop recorder is unchanged. Cardiomegaly is noted. Faint airspace opacities are in the left lower lung. No evidence of pleural effusion or pneumothorax. IMPRESSION: Faint airspace opacities in the left lower lung which may represent atelectasis, pneumonia, and/or aspiration. ACT 112: Negative or not required by law. Electronically signed by: Dileep Castro M.D. 01/11/2021 4:[address] 01/11/21 15:59 CT head/brain wo con CLINICAL HISTORY: fall Technique: Contiguous axial CT images of the head were acquired from the base of the skull to the vertex without intravenous contrast administration. Images were viewed in brain, subdural and bone windows. Automated dose lowering techniques and/or adjustment according to patient size were utilized for this exam. Comparison: Comparison is made to CT head 10/16/2020 Findings: The ventricles, basal cisterns, and cerebral sulci are normal. There is no acute intracranial hemorrhage or evidence of acute territorial infarction. Neither mass effect, shift of the midline structures, nor abnormal extra-axial fluid collections are shown. Mucous filling and air bubbles are seen in the left maxillary sinus. Mucous thickening is seen in the right maxillary sinus. The orbits appear normal. There are no acute fractures of the calvaria or scalp swelling. Impression: No acute intracranial hemorrhage, skull fractures, or scalp swelling. ACT 112: Negative or not required by law. Electronically signed by: Dileep Castro M.D. 01/11/2021 5:01 PM Discharge Plan Visit Data Chief Complaint: Shortness of Breath/Dyspnea Stated Complaint: SOB, Weakness, Nausea ED Provider: Renaldo Bernard Discharge Problem: 2019 novel coronavirus-infected pneumonia (NCIP), Hypoxia, Elevated troponin, Weakness, Nausea Patient Disposition: Admitted As Inpatient Discharge Instructions Interventions: ED Discharge Assessment Last Done: 01/11/21 18:45
--- NOTE | 2021-01-11 16:17 | XRay Report ---
XR chest 1V portable CLINICAL HISTORY: weakness, COVID, fall TECHNIQUE: Single frontal radiograph of the chest was obtained. Comparison: Comparison is made to chest one view 10/16/2020 FINDINGS: Loop recorder is unchanged. Cardiomegaly is noted. Faint airspace opacities are in the left lower onel g. No evidence of pleural effusion or pneumothorax. IMPRESSION: Faint airspace opacities in the left lower lung which may represent atelectasis, pneumonia, and/or as piration. ACT 112: Negative or not required by law. Electronically signed by: Dileep Castro M.D. 01/11/2021 4:15 PM
[2021-01-11 16:30] LABS: Hematocrit (blood only) 33.8 % (37-47); Hemoglobin 10.7 g/dL (12.0-16.0); Mean Corpuscular Hgb Conc 31.7 g/dL (32-36); Mean Corpuscular Volume 91.6 fL (80-100); Platelet Count 462 K/uL (130-400); RDW Standard Deviation 53.8 fL (36.4-46.3); Red Blood Count 3.69 M/uL (4.2-5.4); White Blood Count 5.48 K/uL (4.8-10.8)
[2021-01-11 16:57] LABS: INR 1.2 (0.9-1.1); Prothrombin Time 11.8 Seconds (9.0-12.0)
[2021-01-11] MEDS ORDERED: dexAMETHasone**PF** 10 MG/ML VIAL IV ONE (16:57)
[2021-01-11 17:02] LABS: Basophils # (auto) 0.01 K/uL (0-0.2); Basophils % (auto) 0.2 %; Immature Granulocytes # (auto) 0.03 K/uL (0.00-0.02); Immature Granulocytes % (auto) 0.5 %; Lymphocytes # (auto) 0.45 K/uL (1.2-3.4); Lymphocytes % (auto) 8.2 %; Monocytes # (auto) 0.36 K/uL (0.11-0.59); Monocytes % (auto) 6.6 %; Neutrophils # (auto) 4.63 K/uL (1.4-6.5); Neutrophils % (auto) 84.5 %
--- NOTE | 2021-01-11 17:02 | CT Scan Report ---
CT head/brain wo con CLINICAL HISTORY: fall Technique: Contiguous axial CT images of the head were acquired from the base of the skull to the anup anabela without intravenous contrast administration. Images were viewed in brain, subdural and bone [facility]. Automated dose lowering techniques and/or adjustment according to patient size were utilized for this exam. Comparison: Comparison is made to CT head 10/16/2020 Findings: The ventricles, basal cisterns, and cerebral sulci are normal. There is no acute intracranial hemorrh age or evidence of acute territorial infarction. Neither mass effect, shift of the midline structures , nor abnormal extra-axial fluid collections are shown. Mucous filling and air bubbles are seen in the left maxillary sinus. Mucous thickening is seen in the right maxillary sinus. The orbits appear normal. There are no acute fractures of the calvaria or sc alp swelling. Impression: No acute intracranial hemorrhage, skull fractures, or scalp swelling. ACT 112: Negative or not required by law. Electronically signed by: Dileep Castro M.D. 01/11/2021 5:01 PM
--- NOTE | 2021-01-11 17:08 | CT Scan Report ---
CT chest diagnostic wo con CLINICAL HISTORY: fall, R thoracic axillary pain, covid TECHNIQUE: Multidetector row helical CT of the chest was performed. Coronal and sagittal reformations were obtained. Automated dose lowering techniques and/or adjustment according to patient size were u tilized for this exam. Comparison: Comparison is made to CT chest 01/11/2021 FINDINGS: Lungs and pleura: Diffuse reticular opacities are seen with scattered groundglass opacities as well. Heart and pericardium: Heart size is normal. No pericardial effusion. Vessels: The pulmonary trunk is enlarged measuring 37 mm in diameter. Ascending aorta measures 41 mm in diameter. Scattered atherosclerotic calcifications are seen. Mediastinum and corie: Unremarkable. Chest wall and lower neck: Unremarkable. Abdomen: Partial visualization of ill-defined hypodensities in the liver consistent with known metast atic disease. Bones: Unremarkable. IMPRESSION: 1. Groundglass and reticular opacities compatible with history of viral pneumonia. 2. No evidence of acute fracture in this patient with fall and right axillary pain. 3. Pulmonary hypertension and descending aortic aneurysm. ACT 112: Negative or not required by law. Electronically signed by: Dileep Castro M.D. 01/11/2021 5:07 PM
[2021-01-11 17:14] LABS: Albumin Globulin Ratio 0.5 (0.9-2); BUN Creatinine Ratio 6.8 (10-20); Bilirubin,Total 0.4 mg/dl (0.2-1); Calcium 7.8 mg/dl (8.5-10.1); Creatinine Clr Calc Pharmacy 35.3 ml/min; Est GFR (African American) 51.7 ml/min; Est GFR (Non-African American) 44.6 ml/min; Globulin 4.4 gm/dl (2.5-4.0); Magnesium 2.5 mg/dl (1.8-2.4); Potassium 3.3 mmol/L (3.5-5.1); Thyroid Stimulating Hormone 1.94 uIu/ml (0.300-4.500); Total Protein 6.4 gm/dl (6.4-8.2); Troponin I 0.05 ng/ml (0-0.045)
--- NOTE | 2021-01-11 17:35 | History & Physical Report ---
Date of Service January 11, 2021 History of Present Illness Primary Care Provider: Vicenta Gilbert, DO 75yo F hx afib on eliquis, GERD, thoracic ascending AA, carcinoid cancer on therapy, HTN, and COVID dx 2 days ago who presents with N/cough/weakness with So B and cough. Allergies Allergy/AdvReac Type Severity Reaction Status Date / Time nut - unspecified Allergy Severe throat Verified 01/11/21 15:42 swelling aspirin Allergy Intermediate "ASTHMA" Verified 01/11/21 15:42 celecoxib Allergy Intermediate "ASTHMA Verified 01/11/21 15:42 ATTACK" codeine Allergy Intermediate "FACE Verified 01/11/21 15:42 PUFFS UP" morphine Allergy Intermediate "FACE Verified 01/11/21 15:42 PUFFS UP" latex Allergy Mild RASH Verified 01/11/21 15:42 caffeine AdvReac Intermediate HEADACHE Verified 01/11/21 15:42 midazolam AdvReac Intermediate extreme Verified 01/11/21 15:42 anxiety fentanyl AdvReac Mild DELIRIUM Verified 01/11/21 15:42 lorazepam AdvReac Mild ANXIOUS Verified 01/11/21 15:42 Home Medications Medication Instructions Recorded Confirmed Type cholecalciferol (vitamin D3) 50 2,000 units PO QAM 04/09/18 01/11/21 History mcg (2,000 unit) capsule (Vitamin D3) lanreotide 120 mg/0.5 mL 0 mg SQ Q4WK ml 12/13/18 01/11/21 History subcutaneous syringe (Somatuline Depot) acetaminophen 500 mg tablet 1,000 mg PO AMHS 09/06/19 01/11/21 History (Tylenol Extra Strength) loratadine 10 mg tablet (Claritin) 10 mg PO QAM PRN 09/06/19 01/11/21 History apixaban 5 mg tablet (Eliquis) 5 mg PO BID #60 tab 06/16/20 01/11/21 Rx lancets (Accu-Chek Softclix #100 ea 06/17/20 01/11/21 Rx Lancets) amiodarone 200 mg tablet 200 mg PO QAM 10/06/20 01/11/21 History albuterol sulfate 90 mcg/actuation 1 puff INHALATION QID PRN #6.7 g 12/23/20 01/11/21 Rx aerosol inhaler prednisone 10 mg tablet See Rx Instructions PO DAILY #20 10/26/21 11/14/21 Rx tab Past Med/Surg History Medical History Anal fistula Asthma Atrial fibrillation Coronary vasospasm Elevated alkaline phosphatase level Food allergy, peanut GERD (gastroesophageal reflux disease) Hyperlipidemia Hypertension Liver cancer Metastatic carcinoid tumor (2016) NSTEMI (non-ST elevated myocardial infarction) Osteoarthritis Partial bowel obstruction Prediabetes Proctocolitis Sustained ventricular tachycardia Syncope Thoracic ascending aortic aneurysm Wide-complex tachycardia Surgical History History of cardiac cath History of dilatation and curettage History of liver biopsy History of tonsillectomy and adenoidectomy History of tooth extraction S/P appendectomy S/P cholecystectomy S/P total hysterectomy and bilateral salpingo-oophorectomy Family History Sister Family history of diabetes mellitus Myocardial infarction Father Myocardial infarction, Onset Age: 49 Brother CHF (congestive heart failure) Mother Lung cancer Denies family history of Ovarian cancer Prostate cancer Breast cancer Colorectal cancer Social History Smoking Status: Never smoker Second Hand Exposure: No; Hx Alcohol Use: No Hx Substance Use: No Preferred Language: Georgian Communication Ability: Effective Visual Impairment: Limited Hearing Ability: Normal In[employer] Required: No Beliefs That Will Affect Care: None marital status: Current Living Situation: Family Current Living Situation Comment: spouse, daughter and her family current occupational status: 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 Feels Safe at Home: Yes Childhood Exposure to Second-Hand Smoke: No caffeine: Yes (occasional soda) during the past year weight has: remained stable Dental Care, Regularly: No Physical Activity Frequency: Daily Seatbelt Use: always Sunscreen Use: Yes Assistive Devices: Walker Results & Data Results & Data ([facility]) Vital Signs (Past 12 Hours) Vital Signs Temp Pulse Resp BP Pulse Ox 01/11/21 17:00 100/64 96 01/11/21 16:30 50 L 15 96 01/11/21 16:03 97 01/11/21 16:00 54 L 15 95 01/11/21 15:36 97 01/11/21 15:30 54 L 10 L 97 01/11/21 15:21 36.7 C 57 L 12 110/66 97 01/11/21 15:17 60 20 95 PG Care Time/CCT Total # of Minutes Spent Total Time Spent with Patient: Total time spent is greater than 50% in coordination of care (as documented) at patient's floor/unit and/or counseling patient: Coding
[2021-01-11] MEDS ORDERED: REMDESIVIR 200 MG in SODIUM CHLORIDE 0.9% 210 ML IV ONE (18:00)
--- NOTE | 2021-01-11 18:12 | History & Physical Report ---
Date of Service January 11, 2021 Assessment & Plan (1) 2019 novel coronavirus-infected pneumonia (NCIP): Plan: Patient is an unvaccinated female, tested positive for COVID-19 a couple of days ago in an urgent care center. Presents to the hospital with worsening shortness of breath. Chest x-ray was done which showed evidence of infiltrates. We will start Decadron 6 mg daily, remdesivir Monitor inflammatory markers (2) Hypoxia: Plan: Secondary to COVID-19 pneumonia. Was hypoxic upon admission, saturating 88% on room air We will start oxygen supplementation. Wean as tolerated (3) Elevated troponin: Plan: Most likely due to demand ischemia, mild T wave changes We will continue to monitor troponin Monitor EKG Patient denies any chest pain. (4) PAF (paroxysmal atrial fibrillation): Plan: Patient is on Eliquis at home, will continue Also continue amiodarone (5) Metastatic carcinoid tumor: Plan: Follows up with oncologist every month, currently on treatment History of Present Illness Chief Complaint: SOB Primary Care Provider: Vicenta Gilbert DO This is a 75-year-old female with a history of carcinoid cancer, hypertension, atrial fibrillation on Eliquis, who presents to the emergency department today on account of worsening shortness of breath. Patient tested positive for COVID- 19 couple of days ago at a local urgent care center. Prior to that, she has been having poor appetite generalized weakness so at the insistence of her daughter they both tested positive for COVID-19. EMS was called and they brought the patient to the hospital, she was saturating in the 80s. Of note, patient did not get COVID-19 vaccine. Here in emergency department, CBC and BMP were done WBC was within normal limits BMP was essentially within normal limits apart from a serum potassium of 3.3 and a serum calcium of 7.8. Troponin was 0.05 and CRP was elevated. EKG showed some minor T wave changes but no ST elevation. Chest x-ray was done which showed faint airspace opacities in the left lower lung. She was started on Decadron and remdesivir and will be admitted to the hospital for the management. Allergies Allergy/AdvReac Type Severity Reaction Status Date / Time nut - unspecified Allergy Severe throat Verified 01/11/21 15:42 swelling aspirin Allergy Intermediate "ASTHMA" Verified 01/11/21 15:42 celecoxib Allergy Intermediate "ASTHMA Verified 01/11/21 15:42 ATTACK" codeine Allergy Intermediate "FACE Verified 01/11/21 15:42 PUFFS UP" morphine Allergy Intermediate "FACE Verified 01/11/21 15:42 PUFFS UP" latex Allergy Mild RASH Verified 01/11/21 15:42 caffeine AdvReac Intermediate HEADACHE Verified 01/11/21 15:42 midazolam AdvReac Intermediate extreme Verified 01/11/21 15:42 anxiety fentanyl AdvReac Mild DELIRIUM Verified 01/11/21 15:42 lorazepam AdvReac Mild ANXIOUS Verified 01/11/21 15:42 Home Medications Medication Instructions Recorded Confirmed Type cholecalciferol (vitamin D3) 50 2,000 units PO QAM 04/09/18 01/11/21 History mcg (2,000 unit) capsule (Vitamin D3) lanreotide 120 mg/0.5 mL 0 mg SQ Q4WK ml 12/13/18 01/11/21 History subcutaneous syringe (Somatuline Depot) acetaminophen 500 mg tablet 1,000 mg PO AMHS 09/06/19 01/11/21 History (Tylenol Extra Strength) loratadine 10 mg tablet (Claritin) 10 mg PO QAM PRN 09/06/19 01/11/21 History apixaban 5 mg tablet (Eliquis) 5 mg PO BID #60 tab 06/16/20 01/11/21 Rx lancets (Accu-Chek Softclix #100 ea 06/17/20 01/11/21 Rx Lancets) amiodarone 200 mg tablet 200 mg PO QAM 10/06/20 01/11/21 History albuterol sulfate 90 mcg/actuation 1 puff INHALATION QID PRN #6.7 g 12/23/20 01/11/21 Rx aerosol inhaler prednisone 10 mg tablet See Rx Instructions PO DAILY #20 12/23/20 01/11/21 Rx tab Past Med/Surg History Medical History Anal fistula Asthma Atrial fibrillation Coronary vasospasm Elevated alkaline phosphatase level Food allergy, peanut GERD (gastroesophageal reflux disease) Hyperlipidemia Hypertension Liver cancer Metastatic carcinoid tumor (2016) NSTEMI (non-ST elevated myocardial infarction) Osteoarthritis Partial bowel obstruction Prediabetes Proctocolitis Sustained ventricular tachycardia Syncope Thoracic ascending aortic aneurysm Wide-complex tachycardia Surgical History History of cardiac cath History of dilatation and curettage History of liver biopsy History of tonsillectomy and adenoidectomy History of tooth extraction S/P appendectomy S/P cholecystectomy S/P total hysterectomy and bilateral salpingo-oophorectomy Family History Sister Family history of diabetes mellitus Myocardial infarction Father Myocardial infarction, Onset Age: 49 Brother CHF (congestive heart failure) Mother Lung cancer Denies family history of Ovarian cancer Prostate cancer Breast cancer Colorectal cancer Social History Smoking Status: Never smoker Second Hand Exposure: No; Hx Alcohol Use: No Hx Substance Use: No Preferred Language: Liberian Communication Ability: Effective Visual Impairment: Limited Hearing Ability: Normal Alley Cleaner Required: No Beliefs That Will Affect Care: None marital status: Current Living Situation: Family Current Living Situation Comment: spouse, daughter and her family current occupational status: retired 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 Physical Exam Physical Exam: The patient is awake, alert and oriented 3, well developed and well nourished, normocephalic and atraumatic, lying in bed and in no acute distress. HEENT--PERRL, EOMI, mucous membranes and oropharynx mildly dry Neck--supple. No JVD. No bruits. Thyroid normal, trachea midline, no adenopathy. Heart--normal S1 and S2. No murmurs, rubs or gallops. Lungs--reduced air entry on auscultation. Abdomen--normal bowel sounds and soft. Mild epigastric and left sided abdominal pain Extremities--no cyanosis or clubbing. No edema. Dermatologic--normal skin turgor, normal color, no abnormal lymph nodes, no rash. Neurologic--cranial nerves II through XII grossly intact. Rheumatologic--normal range of motion. Psychiatric--normal affect. Results & Data Results & Data ([facility]) Vital Signs (Past 12 Hours) Vital Signs Temp Pulse Resp BP Pulse Ox 01/11/21 17:00 100/64 96 01/11/21 16:30 50 L 15 96 01/11/21 16:03 97 01/11/21 16:00 54 L 15 95 01/11/21 15:36 97 01/11/21 15:30 54 L 10 L 97 01/11/21 15:21 98.1 F 57 L 12 110/66 97 01/11/21 15:17 60 20 95 Laboratory Results Laboratory Results - last 24 hr 01/11/21 01/11/21 01/11/21 15:30 15:30 15:30 WBC 5.48 RBC 3.69 L Hgb 10.7 L Hct 33.8 L MCV 91.6 MCH 29.0 MCHC 31.7 L RDW Std Deviation 53.8 H RDW Coeff of Myra 16.0 H Plt Count 462 H MPV 10.0 Immature Gran % (Auto) 0.5 Neut % (Auto) 84.5 Lymph % (Auto) 8.2 Warrick % (Auto) 6.6 Eos % (Auto) 0.0 Baso % (Auto) 0.2 Neut # (Auto) 4.63 Lymph # (Auto) 0.45 L Warrick # (Auto) 0.36 Eos # (Auto) 0.00 Baso # (Auto) 0.01 Immature Gran # (Auto) 0.03 H PT 11.8 INR 1.2 H Sodium 137 Potassium 3.3 L Chloride 101 Carbon Dioxide 27 Anion Gap 9.0 BUN 8 Creatinine 1.19 Est Cr Clr Drug Dosing 35.3 Est GFR ( Amer) 51.7 Est GFR (Non-Af Amer) 44.6 BUN/Creatinine Ratio 6.8 L Glucose 119 H Calcium 7.8 L Magnesium 2.5 H Total Bilirubin 0.4 AST 34 ALT 16 Alkaline Phosphatase 127 H Troponin I 0.050 H* C-Reactive Protein 12.00 H Total Protein 6.4 Albumin 2.0 L Globulin 4.4 H Albumin/Globulin Ratio 0.5 L TSH 1.940 COVID-19 Eval Order SARS-CoV-2 (PCR) 01/11/21 01/11/21 16:20 16:20 WBC RBC Hgb Hct MCV MCH MCHC RDW Std Deviation RDW Coeff of Myra Plt Count MPV Immature Gran % (Auto) Neut % (Auto) Lymph % (Auto) Warrick % (Auto) Eos % (Auto) Baso % (Auto) Neut # (Auto) Lymph # (Auto) Warrick # (Auto) Eos # (Auto) Baso # (Auto) Immature Gran # (Auto) PT INR Sodium Potassium Chloride Carbon Dioxide Anion Gap BUN Creatinine Est Cr Clr Drug Dosing Est GFR ( Amer) Est GFR (Non-Af Amer) BUN/Creatinine Ratio Glucose Calcium Magnesium Total Bilirubin AST ALT Alkaline Phosphatase Troponin I C-Reactive Protein Total Protein Albumin Globulin Albumin/Globulin Ratio TSH COVID-19 Eval Order Covid19 at [facility] SARS-CoV-2 (PCR) POSITIVE A* Code Status & VTE Plan VTE Prophylaxis Plan VTE Prophylaxis will be ordered: Yes PG Care Time/CCT Total # of Minutes Spent Total Time Spent with Patient: Total time spent is greater than 50% in coordination of care (as documented) at patient's floor/unit and/or counseling patient: Coding Level of Care Code 99208 Initial Inpt Care Lvl 3 Diagnoses 2019 novel coronavirus-infected pneumonia (NCIP) U07.1; J12.82 Hypoxia R09.02 Elevated troponin R77.8 PAF (paroxysmal atrial fibrillation) I48.0 Metastatic carcinoid tumor C7B.00
[2021-01-11 19:58] LABS: Ferritin 258.9 ng/ml (8-388); Troponin I 0.06 ng/ml (0-0.045)
[2021-01-11] MEDS ORDERED: ONDANSETRON INJ 2 MG/ML 2 ML VIAL IV PRN (20:02)
[2021-01-11] MEDS ORDERED: NITROGLYCERIN SL 0.4 MG/TAB TAB SL PRN (20:02)
[2021-01-11] MEDS ORDERED: POLYETHYLENE (MIRALAX) 17 GM PACK PO PRN (20:02)
[2021-01-11] MEDS: ACETAMINOPHEN 325 MG TAB PO PRN (20:04)
[2021-01-11] MEDS ORDERED: POTASSIUM CHLORIDE CRTAB 20 MEQ TABCR PO STA (20:04)
[2021-01-11] MEDS: APIXABAN 5 MG TABLET PO SCH (20:48)
[2021-01-11] MEDS: LORATADINE 10 MG TAB PO PRN (20:48)
[2021-01-11] MEDS: SODIUM CHLORIDE 0.9% 10ML FLUSH IV SCH (20:49)
[2021-01-11] MEDS: guaiFENesin 600 MG TABCR PO SCH (20:52)
[2021-01-12] MEDS: ACETAMINOPHEN 325 MG TAB PO PRN (02:35)
[2021-01-12 03:46] LABS: Appearance Urine Clear (Clear); Bacteria Urine Automated Negative (Negative); Bilirubin Urine Negative (Negative); Blood Urine 1+ (Negative); Color Urine Yellow; Glucose Urine UA Negative (Negative); Ketones Urine Trace (Negative); Leukocyte Esterase Urine Negative (Negative); Nitrite Urine Negative (Negative); Protein Urine Trace (Negative); RBC Urine Automated 0-4 /hpf (0-4); Specific Gravity Urine 1.019 (1.000-1.030); Urobilinogen Urine Negative (Negative)
[2021-01-12 04:09] LABS: Cast Urine Automated >30 /lpf (0-5)
[2021-01-12] MEDS: AMIODARONE 200 MG TAB PO SCH (08:27)
[2021-01-12] MEDS: dexAMETHasone 6 MG in SYRINGE 0 ML IV SCH (08:27)
[2021-01-12] MEDS: guaiFENesin 600 MG TABCR PO SCH ×2 (08:27→19:56)
[2021-01-12] MEDS: APIXABAN 5 MG TABLET PO SCH ×2 (08:27→19:57)
[2021-01-12] MEDS: CHOLECALCIFEROL 1,000 UNITS 25 MCG TAB PO SCH (08:28)
[2021-01-12 09:56] LABS: Basophils # (auto) 0.01 K/uL (0-0.2); Basophils % (auto) 0.2 %; Hematocrit (blood only) 32.6 % (37-47); Hemoglobin 10.5 g/dL (12.0-16.0); Immature Granulocytes # (auto) 0.02 K/uL (0.00-0.02); Immature Granulocytes % (auto) 0.5 %; Lymphocytes # (auto) 0.48 K/uL (1.2-3.4); Lymphocytes % (auto) 11.7 %; Mean Corpuscular Hemoglobin 29.5 pg (25-34); Mean Corpuscular Hgb Conc 32.2 g/dL (32-36); Mean Corpuscular Volume 91.6 fL (80-100); Mean Platelet Volume 9.5 fL (7.4-10.4); Monocytes # (auto) 0.14 K/uL (0.11-0.59); Monocytes % (auto) 3.4 %; Neutrophils # (auto) 3.44 K/uL (1.4-6.5); Neutrophils % (auto) 84.2 %; Platelet Count 456 K/uL (130-400); RDW Coefficient of Variation 15.8 % (11.5-14.5); RDW Standard Deviation 53.4 fL (36.4-46.3); Red Blood Count 3.56 M/uL (4.2-5.4); White Blood Count 4.09 K/uL (4.8-10.8)
[2021-01-12 10:18] LABS: Albumin Globulin Ratio 0.5 (0.9-2); BUN Creatinine Ratio 12.1 (10-20); Bilirubin,Total 0.5 mg/dl (0.2-1); C Reactive Protein 11.9 mg/dl (0-0.29); Calcium 8.2 mg/dl (8.5-10.1); Creatinine Clr Calc Pharmacy 35.6 ml/min; Est GFR (African American) 55.1 ml/min; Est GFR (Non-African American) 47.5 ml/min; Globulin 4.3 gm/dl (2.5-4.0); Potassium 4.2 mmol/L (3.5-5.1); Total Protein 6.3 gm/dl (6.4-8.2)
--- NOTE | 2021-01-12 13:08 | Hospitalist Progress Note ---
Date of Service January 12, 2021 Assessment & Plan (1) 2019 novel coronavirus-infected pneumonia (NCIP): Plan: Patient is an unvaccinated female, tested positive for COVID-19 a couple of days prior to admission in an urgent care center. Presents to the hospital with worsening shortness of breath, found ot be hypoxic. Chest x-ray was done which showed evidence of infiltrates. Remains on 6LNC now CRP high at 11.9 -continue decadron, Remdesevir -continue to use/encourage IS and flutter valve -tried to add on antitussive and comes up as cross reactive to nut allergy which is a severe allergy-not sure if this is related to nuts? Hold off on antitussives for now -if clinically worsens over the next 48 hours to HFNC or BiPAP, would qualify for baricitinib or Toci -Monitor inflammatory markers -continue supplemental O2 (2) Hypoxia: Plan: Secondary to COVID-19 pneumonia. Was hypoxic upon admission, saturating 88% on room air continue oxygen supplementation. Wean as tolerated (3) Elevated troponin: Plan: Most likely due to demand ischemia, mild T wave changes serial trops came back down Patient denies any chest pain. (4) PAF (paroxysmal atrial fibrillation): Plan: Patient is on Eliquis at home, will continue -is in SB and NSR here Also continue amiodarone (5) Metastatic carcinoid tumor: Plan: Follows up with oncologist every month, currently on treatment (6) Urinary symptom or sign: Plan: feels like retaining, bladder scan 200mL UA neg for infection continue to bladder scan and straight cath as needed Plan: DVT Proph-ELiquis Dispo-continued stay on tele in COVID unit Admission and Anticipated Discharge Date Admission Date: January 11, 2021 Subjective Pt reports having to be straight cathed last night and now feels urge to void but can't. Bladder scan was 200mL as per RN. UA last night neg for infection. Not drinking much. SHe is coughing a lot with deep breaths. Was on 2LNC this AM but now up to 6LNC. POx 85% with cough when I saw her. Last BM yesterday. Tele with SB and NSR, rates 40-60s Review of Systems Review of Systems: All systems reviewed & are unremarkable except as noted in HPI & below Physical Exam Constitutional: WD/WN, vitals as above Neck: trachea midline, no thyromegaly Respiratory: normal respiratory effort and + cough Auscultation: + crackles (bibasilar); no rhonchi and no wheezes Cardiovascular: RRR, no murmur, no edema Chest (Breasts): Chest: normal inspection of chest Gastrointestinal (Abdomen): normal bowel sounds, soft, nontender, no hepatosplenomegaly Musculoskeletal: Extremities: extremities normal to inspection; no cyanosis and no clubbing Skin: no rashes, warm and dry Neurologic: moves all extremities and awake; no focal motor deficits Psychiatric: A+Ox3, euthymic affect Lymphatic: no lymphedema Results & Data Results & Data ([facility]) Vital Signs (Past 12 Hours) Vital Signs Temp Pulse Pulse Resp BP Pulse Ox 01/12/21 11:25 36.5 C 67 18 101/57 L 90 01/12/21 08:00 51 L 01/12/21 07:29 36.6 C 51 L 16 107/72 95 01/12/21 04:00 36.5 C 51 L 16 105/69 94 Laboratory Results 01/12/21 01/12/21 01/12/21 Range/Units 09:27 09:27 09:27 WBC 4.09 L (4.8-10.8) K/uL RBC 3.56 L (4.2-5.4) M/uL Hgb 10.5 L (12.0-16.0) g/dL Hct 32.6 L (37-47) % MCV 91.6 (80-100) fL MCH 29.5 (25-34) pg MCHC 32.2 (32-36) g/dL RDW Std Deviation 53.4 H (36.4-46.3) fL RDW Coeff of Myra 15.8 H (11.5-14.5) % Plt Count 456 H (130-400) K/uL MPV 9.5 (7.4-10.4) fL Immature Gran % (Auto) 0.5 % Neut % (Auto) 84.2 % Lymph % (Auto) 11.7 % Tripp % (Auto) 3.4 % Eos % (Auto) 0.0 % Baso % (Auto) 0.2 % Neut # (Auto) 3.44 (1.4-6.5) K/uL Lymph # (Auto) 0.48 L (1.2-3.4) K/uL Tripp # (Auto) 0.14 (0.11-0.59) K/uL Eos # (Auto) 0.00 (0-0.5) K/uL Baso # (Auto) 0.01 (0-0.2) K/uL Immature Gran # (Auto) 0.02 (0.00-0.02) K/uL PT (9.0-12.0) Seconds INR (0.9-1.1) Sodium 136 (136-145) mmol/L Potassium 4.2 D (3.5-5.1) mmol/L Chloride 104 (98-107) mmol/L Carbon Dioxide 26 (21-32) mmol/L Anion Gap 6.0 (3-11) BUN 14 D (7-18) mg/dl Creatinine 1.13 (0.6-1.2) mg/dl Est Cr Clr Drug Dosing 35.6 ml/min Est GFR ( Amer) 55.1 ml/min Est GFR (Non-Af Amer) 47.5 ml/min BUN/Creatinine Ratio 12.1 (10-20) Glucose 138 H (70-99) mg/dl Calcium 8.2 L (8.5-10.1) mg/dl Magnesium (1.8-2.4) mg/dl Ferritin (8-388) ng/ml Total Bilirubin 0.5 (0.2-1) mg/dl AST 27 (15-37) U/L ALT 14 (12-78) U/L Alkaline Phosphatase 124 H (45-117) U/L Troponin I 0.038 (0-0.045) ng/ml C-Reactive Protein 11.90 H (0-0.29) mg/dl Total Protein 6.3 L (6.4-8.2) gm/dl Albumin 2.0 L (3.4-5.0) gm/dl Globulin 4.3 H (2.5-4.0) gm/dl Albumin/Globulin Ratio 0.5 L (0.9-2) TSH (0.300-4.500) uIu/ml Urine Color Urine Appearance (Clear) Urine pH (4.5-7.5) Ur Specific [place] (1.000-1.030) Urine Protein (Negative) Urine Glucose (UA) (Negative) Urine Ketones (Negative) Urine Blood (Negative) Urine Nitrite (Negative) Urine Bilirubin (Negative) Urine Urobilinogen (Negative) Ur Leukocyte Esterase (Negative) Urine WBC (Auto) (0-5) /hpf Urine RBC (Auto) (0-4) /hpf U Hyaline Cast (Auto) (0-5) /lpf U Epithel Cells (Auto) (0-5) /lpf Urine Bacteria (Auto) (Negative) COVID-19 Eval Order SARS-CoV-2 (PCR) (Negative) 01/12/21 01/11/21 01/11/21 Range/Units 02:25 18:57 16:20 WBC (4.8-10.8) K/uL RBC (4.2-5.4) M/uL Hgb (12.0-16.0) g/dL Hct (37-47) % MCV (80-100) fL MCH (25-34) pg MCHC (32-36) g/dL RDW Std Deviation (36.4-46.3) fL RDW Coeff of Myra (11.5-14.5) % Plt Count (130-400) K/uL MPV (7.4-10.4) fL Immature Gran % (Auto) % Neut % (Auto) % Lymph % (Auto) % [place] % (Auto) % Eos % (Auto) % Baso % (Auto) % Neut # (Auto) (1.4-6.5) K/uL Lymph # (Auto) (1.2-3.4) K/uL [place] # (Auto) (0.11-0.59) K/uL Eos # (Auto) (0-0.5) K/uL Baso # (Auto) (0-0.2) K/uL Immature Gran # (Auto) (0.00-0.02) K/uL PT (9.0-12.0) Seconds INR (0.9-1.1) Sodium (136-145) mmol/L Potassium (3.5-5.1) mmol/L Chloride (98-107) mmol/L Carbon Dioxide (21-32) mmol/L Anion Gap (3-11) BUN (7-18) mg/dl Creatinine (0.6-1.2) mg/dl Est Cr Clr Drug Dosing ml/min Est GFR ( Amer) ml/min Est GFR (Non-Af Amer) ml/min BUN/Creatinine Ratio (10-20) Glucose (70-99) mg/dl Calcium (8.5-10.1) mg/dl Magnesium (1.8-2.4) mg/dl Ferritin 258.9 (8-388) ng/ml Total Bilirubin (0.2-1) mg/dl AST (15-37) U/L ALT (12-78) U/L Alkaline Phosphatase (45-117) U/L Troponin I 0.060 H* (0-0.045) ng/ml C-Reactive Protein (0-0.29) mg/dl Total Protein (6.4-8.2) gm/dl Albumin (3.4-5.0) gm/dl Globulin (2.5-4.0) gm/dl Albumin/Globulin Ratio (0.9-2) TSH (0.300-4.500) uIu/ml Urine Color Yellow Urine Appearance Clear (Clear) Urine pH 5.0 (4.5-7.5) Ur Specific [place] 1.019 (1.000-1.030) Urine Protein Trace H (Negative) Urine Glucose (UA) Negative (Negative) Urine Ketones Trace H (Negative) Urine Blood 1+ H (Negative) Urine Nitrite Negative (Negative) Urine Bilirubin Negative (Negative) Urine Urobilinogen Negative (Negative) Ur Leukocyte Esterase Negative (Negative) Urine WBC (Auto) 1-5 (0-5) /hpf Urine RBC (Auto) 0-4 (0-4) /hpf U Hyaline Cast (Auto) >30 H (0-5) /lpf U Epithel Cells (Auto) 10-20 H (0-5) /lpf Urine Bacteria (Auto) Negative (Negative) COVID-19 Eval Order SARS-CoV-2 (PCR) POSITIVE A* (Negative) 01/11/21 01/11/21 01/11/21 Range/Units 16:20 15:30 15:30 WBC (4.8-10.8) K/uL RBC (4.2-5.4) M/uL Hgb (12.0-16.0) g/dL Hct (37-47) % MCV (80-100) fL MCH (25-34) pg MCHC (32-36) g/dL RDW Std Deviation (36.4-46.3) fL RDW Coeff of Myra (11.5-14.5) % Plt Count (130-400) K/uL MPV (7.4-10.4) fL Immature Gran % (Auto) % Neut % (Auto) % Lymph % (Auto) % [place]pp % (Auto) % Eos % (Auto) % Baso % (Auto) % Neut # (Auto) (1.4-6.5) K/uL Lymph # (Auto) (1.2-3.4) K/uL Tripp # (Auto) (0.11-0.59) K/uL Eos # (Auto) (0-0.5) K/uL Baso # (Auto) (0-0.2) K/uL Immature Gran # (Auto) (0.00-0.02) K/uL PT 11.8 (9.0-12.0) Seconds INR 1.2 H (0.9-1.1) Sodium 137 (136-145) mmol/L Potassium 3.3 L (3.5-5.1) mmol/L Chloride 101 (98-107) mmol/L Carbon Dioxide 27 (21-32) mmol/L Anion Gap 9.0 (3-11) BUN 8 (7-18) mg/dl Creatinine 1.19 (0.6-1.2) mg/dl Est Cr Clr Drug Dosing 35.3 ml/min Est GFR ( Amer) 51.7 ml/min Est GFR (Non-Af Amer) 44.6 ml/min BUN/Creatinine Ratio 6.8 L (10-20) Glucose 119 H (70-99) mg/dl Calcium 7.8 L (8.5-10.1) mg/dl Magnesium 2.5 H (1.8-2.4) mg/dl Ferritin (8-388) ng/ml Total Bilirubin 0.4 (0.2-1) mg/dl AST 34 (15-37) U/L ALT 16 (12-78) U/L Alkaline Phosphatase 127 H (45-117) U/L Troponin I 0.050 H* (0-0.045) ng/ml C-Reactive Protein 12.00 H (0-0.29) mg/dl Total Protein 6.4 (6.4-8.2) gm/dl Albumin 2.0 L (3.4-5.0) gm/dl Globulin 4.4 H (2.5-4.0) gm/dl Albumin/Globulin Ratio 0.5 L (0.9-2) TSH 1.940 (0.300-4.500) uIu/ml Urine Color Urine Appearance (Clear) Urine pH (4.5-7.5) Ur Specific [place] (1.000-1.030) Urine Protein (Negative) Urine Glucose (UA) (Negative) Urine Ketones (Negative) Urine Blood (Negative) Urine Nitrite (Negative) Urine Bilirubin (Negative) Urine Urobilinogen (Negative) Ur Leukocyte Esterase (Negative) Urine WBC (Auto) (0-5) /hpf Urine RBC (Auto) (0-4) /hpf U Hyaline Cast (Auto) (0-5) /lpf U Epithel Cells (Auto) (0-5) /lpf Urine Bacteria (Auto) (Negative) COVID-19 Eval Order Covid19 at [facility] SARS-CoV-2 (PCR) (Negative) 01/11/21 Range/Units 15:30 WBC 5.48 (4.8-10.8) K/uL RBC 3.69 L (4.2-5.4) M/uL Hgb 10.7 L (12.0-16.0) g/dL Hct 33.8 L (37-47) % MCV 91.6 (80-100) fL MCH 29.0 (25-34) pg MCHC 31.7 L (32-36) g/dL RDW Std Deviation 53.8 H (36.4-46.3) fL RDW Coeff of Myra 16.0 H (11.5-14.5) % Plt Count 462 H (130-400) K/uL MPV 10.0 (7.4-10.4) fL Immature Gran % (Auto) 0.5 % Neut % (Auto) 84.5 % Lymph % (Auto) 8.2 % Tripp % (Auto) 6.6 % Eos % (Auto) 0.0 % Baso % (Auto) 0.2 % Neut # (Auto) 4.63 (1.4-6.5) K/uL Lymph # (Auto) 0.45 L (1.2-3.4) K/uL Tripp # (Auto) 0.36 (0.11-0.59) K/uL Eos # (Auto) 0.00 (0-0.5) K/uL Baso # (Auto) 0.01 (0-0.2) K/uL Immature Gran # (Auto) 0.03 H (0.00-0.02) K/uL PT (9.0-12.0) Seconds INR (0.9-1.1) Sodium (136-145) mmol/L Potassium (3.5-5.1) mmol/L Chloride (98-107) mmol/L Carbon Dioxide (21-32) mmol/L Anion Gap (3-11) BUN (7-18) mg/dl Creatinine (0.6-1.2) mg/dl Est Cr Clr Drug Dosing ml/min Est GFR ( Amer) ml/min Est GFR (Non-Af Amer) ml/min BUN/Creatinine Ratio (10-20) Glucose (70-99) mg/dl Calcium (8.5-10.1) mg/dl Magnesium (1.8-2.4) mg/dl Ferritin (8-388) ng/ml Total Bilirubin (0.2-1) mg/dl AST (15-37) U/L ALT (12-78) U/L Alkaline Phosphatase (45-117) U/L Troponin I (0-0.045) ng/ml C-Reactive Protein (0-0.29) mg/dl Total Protein (6.4-8.2) gm/dl Albumin (3.4-5.0) gm/dl Globulin (2.5-4.0) gm/dl Albumin/Globulin Ratio (0.9-2) TSH (0.300-4.500) uIu/ml Urine Color Urine Appearance (Clear) Urine pH (4.5-7.5) Ur Specific [place] (1.000-1.030) Urine Protein (Negative) Urine Glucose (UA) (Negative) Urine Ketones (Negative) Urine Blood (Negative) Urine Nitrite (Negative) Urine Bilirubin (Negative) Urine Urobilinogen (Negative) Ur Leukocyte Esterase (Negative) Urine WBC (Auto) (0-5) /hpf Urine RBC (Auto) (0-4) /hpf U Hyaline Cast (Auto) (0-5) /lpf U Epithel Cells (Auto) (0-5) /lpf Urine Bacteria (Auto) (Negative) COVID-19 Eval Order SARS-CoV-2 (PCR) (Negative) PG Care Time/CCT Total # of Minutes Spent Total Time Spent with Patient: Total time spent is greater than 50% in coordination of care (as documented) at patient's floor/unit and/or counseling patient: Coding Level of Care Code 10725 Subseq Hosp Care Lvl 3 Diagnoses 2019 novel coronavirus-infected pneumonia (NCIP) U07.1; J12.82 Hypoxia R09.02 Elevated troponin R77.8 PAF (paroxysmal atrial fibrillation) I48.0 Metastatic carcinoid tumor C7B.00 Urinary symptom or sign R39.9
--- NOTE | 2021-01-12 16:12 | Electrocardiogram Report ---
Test Reason : Blood Pressure : / mmHG Vent. Rate : 058 BPM Atrial Rate : 058 BPM P-R Int : 164 ms QRS Dur : 118 ms QT Int : 466 ms P-R-T Axes : 069 -17 258 degrees QTc Int : 457 ms Sinus bradycardia Left ventricular hypertrophy with QRS widening Abnormal ECG When compared with ECG of 16-OCT-2020 10:49, T wave inversion more evident in Anterior leads T wave inversion less evident in Lateral leads Confirmed by Darion Loza [id number] on 01/12/2021 4:12:03 PM Referred By: REFERRED SELF Confirmed By:Darion Loza
[2021-01-12] MEDS: REMDESIVIR 100 MG in SODIUM CHLORIDE 0.9% 230 ML IV SCH (19:56)
[2021-01-12] MEDS: SODIUM CHLORIDE 0.9% 10ML FLUSH IV SCH (21:05)
[2021-01-13] MEDS: BENZONATATE 100 MG CAPSULE PO PRN ×2 (01:42→20:24)
[2021-01-13 07:45] LABS: Basophils # (auto) 0.02 K/uL (0-0.2); Basophils % (auto) 0.1 %; Hematocrit (blood only) 35.3 % (37-47); Hemoglobin 11.4 g/dL (12.0-16.0); Immature Granulocytes # (auto) 0.07 K/uL (0.00-0.02); Immature Granulocytes % (auto) 0.5 %; Lymphocytes # (auto) 0.78 K/uL (1.2-3.4); Lymphocytes % (auto) 5.8 %; Mean Corpuscular Hemoglobin 29.8 pg (25-34); Mean Corpuscular Hgb Conc 32.3 g/dL (32-36); Mean Corpuscular Volume 92.4 fL (80-100); Mean Platelet Volume 10.1 fL (7.4-10.4); Monocytes # (auto) 0.51 K/uL (0.11-0.59); Monocytes % (auto) 3.8 %; Neutrophils # (auto) 12.14 K/uL (1.4-6.5); Neutrophils % (auto) 89.8 %; Platelet Count 632 K/uL (130-400); RDW Coefficient of Variation 16.1 % (11.5-14.5); RDW Standard Deviation 54.5 fL (36.4-46.3); Red Blood Count 3.82 M/uL (4.2-5.4); White Blood Count 13.52 K/uL (4.8-10.8)
[2021-01-13 08:01] LABS: C Reactive Protein 7.55 mg/dl (0-0.29); Calcium 7.8 mg/dl (8.5-10.1); Est GFR (African American) 53.9 ml/min; Est GFR (Non-African American) 46.5 ml/min; Magnesium 2.5 mg/dl (1.8-2.4); Potassium 4.2 mmol/L (3.5-5.1)
[2021-01-13] MEDS: AMIODARONE 200 MG TAB PO SCH (09:04)
[2021-01-13] MEDS: CHOLECALCIFEROL 1,000 UNITS 25 MCG TAB PO SCH (09:04)
[2021-01-13] MEDS: dexAMETHasone 6 MG in SYRINGE 0 ML IV SCH (09:04)
[2021-01-13] MEDS: guaiFENesin 600 MG TABCR PO SCH ×2 (09:05→20:25)
[2021-01-13] MEDS: APIXABAN 5 MG TABLET PO SCH ×2 (09:05→20:24)
[2021-01-13] MEDS: LORATADINE 10 MG TAB PO PRN (09:07)
--- NOTE | 2021-01-13 12:02 | Hospitalist Progress Note ---
Date of Service January 13, 2021 Assessment & Plan (1) 2019 novel coronavirus-infected pneumonia (NCIP): Plan: Patient is an unvaccinated female, tested positive for COVID-19 a couple of days prior to admission in an urgent care center. Presents to the hospital with worsening shortness of breath, found ot be hypoxic. Chest x-ray was done which showed evidence of infiltrates. Now requiring 11 L nasal cannula, but able to wean back to on 8 L by the end of today CRP high at 11.9 on admission now improving down to 7 -continue decadron x10-day course, and Remdesevir x5-day course -continue to use/encourage IS and flutter valve -tried to add on antitussive and comes up as cross reactive to nut allergy which is a severe allergy-not sure if this is related to nuts? Also allergy to morphine and codeine. Hold off on antitussives for now -if clinically worsens over the next 24 hours to requiring HFNC or BiPAP, would qualify for baricitinib or Toci -Monitor inflammatory markers, CBC, CMP -continue supplemental O2 (2) Hypoxia: Plan: Secondary to COVID-19 pneumonia. As above (3) Elevated troponin: Plan: Most likely due to demand ischemia, mild T wave changes serial trops came back down Patient denies any chest pain. (4) PAF (paroxysmal atrial fibrillation): Plan: Patient is on Eliquis at home, will continue -is in SB and NSR here Also continue amiodarone (5) Metastatic carcinoid tumor: Plan: Follows up with oncologist every month, currently on treatment with lanreotide (6) Urinary symptom or sign: Plan: Was retaining some urine on 01/12 requiring straight catheterization This is now improving UA neg for infection continue to bladder scan and straight cath as needed Plan: DVT Proph-ELiquis Dispo-continued stay on tele in COVID unit Gave her daughter and update by phone on 01/12 and 01/13 Admission and Anticipated Discharge Date Admission Date: January 11, 2021 Subjective Patient feeling weak and tired, still coughing a lot. Is able to urinate. Was turned up to 11 L of oxygen for desaturations this morning but is now weaned down to 8 by the afternoon. Telemetry with sinus bradycardia, rates in the 40s to 50s. She had a brief episode of hypotension with blood pressure in the 70s last night which quickly resolved. She is now wearing JOE hose Review of Systems Review of Systems: All systems reviewed & are unremarkable except as noted in HPI & below Feels a little bit lightheaded at times Physical Exam Constitutional: WD/WN, vitals as above Eyes: + anicteric sclerae Neck: trachea midline, no thyromegaly Respiratory: normal respiratory effort and + cough Auscultation: + crackles (bibasilar); no rhonchi and no wheezes Cardiovascular: RRR, no murmur, no edema Chest (Breasts): Chest: normal inspection of chest Gastrointestinal (Abdomen): normal bowel sounds, soft, nontender, no hepatosplenomegaly Musculoskeletal: Extremities: extremities normal to inspection; no cyanosis and no clubbing Skin: no rashes, warm and dry Neurologic: moves all extremities and awake; no focal motor deficits Psychiatric: A+Ox3, euthymic affect Lymphatic: no lymphedema Results & Data Results & Data ([facility]) Vital Signs (Past 12 Hours) Vital Signs Temp Pulse Pulse Resp BP Pulse Ox 01/13/21 11:29 36.5 C 49 L 19 108/60 95 01/13/21 08:00 50 L 01/13/21 07:15 36.5 C 67 19 114/88 96 01/13/21 06:43 24 90 01/13/21 06:21 90 01/13/21 03:05 36.5 C 48 L 20 104/43 L 94 01/13/21 01:18 49 L 124/63 01/13/21 01:10 59 L 100/65 01/13/21 01:08 63 79/49 L Laboratory Results 01/13/21 01/13/21 Range/Units 06:18 06:18 WBC 13.52 H (4.8-10.8) K/uL RBC 3.82 L (4.2-5.4) M/uL Hgb 11.4 L (12.0-16.0) g/dL Hct 35.3 L (37-47) % MCV 92.4 (80-100) fL MCH 29.8 (25-34) pg MCHC 32.3 (32-36) g/dL RDW Std Deviation 54.5 H (36.4-46.3) fL RDW Coeff of Myra 16.1 H (11.5-14.5) % Plt Count 632 H (130-400) K/uL MPV 10.1 (7.4-10.4) fL Immature Gran % (Auto) 0.5 % Neut % (Auto) 89.8 % Lymph % (Auto) 5.8 % [place] % (Auto) 3.8 % Eos % (Auto) 0.0 % Baso % (Auto) 0.1 % Neut # (Auto) 12.14 H (1.4-6.5) K/uL Lymph # (Auto) 0.78 L (1.2-3.4) K/uL [place] # (Auto) 0.51 (0.11-0.59) K/uL Eos # (Auto) 0.00 (0-0.5) K/uL Baso # (Auto) 0.02 (0-0.2) K/uL Immature Gran # (Auto) 0.07 H (0.00-0.02) K/uL Sodium 138 (136-145) mmol/L Potassium 4.2 (3.5-5.1) mmol/L Chloride 104 (98-107) mmol/L Carbon Dioxide 27 (21-32) mmol/L Anion Gap 7.0 (3-11) BUN 21 H (7-18) mg/dl Creatinine 1.15 (0.6-1.2) mg/dl Est Cr Clr Drug Dosing 35.0 ml/min Est GFR ( Amer) 53.9 ml/min Est GFR (Non-Af Amer) 46.5 ml/min BUN/Creatinine Ratio 18.0 (10-20) Glucose 121 H (70-99) mg/dl Calcium 7.8 L (8.5-10.1) mg/dl Magnesium 2.5 H (1.8-2.4) mg/dl C-Reactive Protein 7.55 H (0-0.29) mg/dl PG Care Time/CCT Total # of Minutes Spent Total Time Spent with Patient: Total time spent is greater than 50% in coordination of care (as documented) at patient's floor/unit and/or counseling patient: Coding Level of Care Code 89255 Subseq Hosp Care Lvl 3 Diagnoses 2019 novel coronavirus-infected pneumonia (NCIP) U07.1; J12.82 Hypoxia R09.02 Elevated troponin R77.8 PAF (paroxysmal atrial fibrillation) I48.0 Metastatic carcinoid tumor C7B.00 Urinary symptom or sign R39.9
[2021-01-13] MEDS: REMDESIVIR 100 MG in SODIUM CHLORIDE 0.9% 230 ML IV SCH (20:22)
[2021-01-13] MEDS: SODIUM CHLORIDE 0.9% 10ML FLUSH IV SCH (22:23)
[2021-01-14] MEDS: ALBUTEROL HFA 8 GM INHALER INH SCH ×3 (00:35→19:50)
[2021-01-14 06:22] LABS: Basophils # (auto) 0.01 K/uL (0-0.2); Basophils % (auto) 0.1 %; Hematocrit (blood only) 34.3 % (37-47); Hemoglobin 10.8 g/dL (12.0-16.0); Immature Granulocytes # (auto) 0.03 K/uL (0.00-0.02); Immature Granulocytes % (auto) 0.3 %; Lymphocytes # (auto) 0.59 K/uL (1.2-3.4); Lymphocytes % (auto) 5.5 %; Mean Corpuscular Hemoglobin 29.4 pg (25-34); Mean Corpuscular Hgb Conc 31.5 g/dL (32-36); Mean Corpuscular Volume 93.5 fL (80-100); Mean Platelet Volume 9.9 fL (7.4-10.4); Monocytes # (auto) 0.48 K/uL (0.11-0.59); Monocytes % (auto) 4.5 %; Neutrophils # (auto) 9.56 K/uL (1.4-6.5); Neutrophils % (auto) 89.6 %; Platelet Count 597 K/uL (130-400); RDW Coefficient of Variation 16.3 % (11.5-14.5); RDW Standard Deviation 55.8 fL (36.4-46.3); Red Blood Count 3.67 M/uL (4.2-5.4); White Blood Count 10.67 K/uL (4.8-10.8)
[2021-01-14 07:04] LABS: Albumin Globulin Ratio 0.5 (0.9-2); BUN Creatinine Ratio 20.5 (10-20); Bilirubin,Total 0.5 mg/dl (0.2-1); C Reactive Protein 5.05 mg/dl (0-0.29); Calcium 8.1 mg/dl (8.5-10.1); Creatinine Clr Calc Pharmacy 39.1 ml/min; Est GFR (African American) 56.3 ml/min; Est GFR (Non-African American) 48.5 ml/min; Globulin 4.2 gm/dl (2.5-4.0); Magnesium 2.8 mg/dl (1.8-2.4); Potassium 4.2 mmol/L (3.5-5.1); Total Protein 6.2 gm/dl (6.4-8.2)
[2021-01-14] MEDS: LORATADINE 10 MG TAB PO PRN (08:08)
[2021-01-14] MEDS: AMIODARONE 200 MG TAB PO SCH (08:08)
[2021-01-14] MEDS: dexAMETHasone 6 MG in SYRINGE 0 ML IV SCH (08:08)
[2021-01-14] MEDS: APIXABAN 5 MG TABLET PO SCH ×2 (08:09→20:41)
[2021-01-14] MEDS: guaiFENesin 600 MG TABCR PO SCH ×2 (08:09→20:41)
[2021-01-14] MEDS: CHOLECALCIFEROL 1,000 UNITS 25 MCG TAB PO SCH (08:09)
--- NOTE | 2021-01-14 16:36 | Hospitalist Progress Note ---
Date of Service January 14, 2021 Assessment & Plan (1) 2019 novel coronavirus-infected pneumonia (NCIP): Plan: Patient is an unvaccinated female, tested positive for COVID-19 a couple of days prior to admission in an urgent care center. Presents to the hospital with worsening shortness of breath, found to be hypoxic. Chest x-ray was done which showed evidence of infiltrates. O2 requirements continue to escalate, now up to 14L [place] at rest Still with harsh dry cough CRP high at 11.9 on admission now improving down to 4 -continue decadron x10-day course, and Remdesevir x5-day course -continue to use/encourage IS and flutter valve -tolerating prn tessalon perle despite opioid allergy--> make 100mg po tid scheduled -continue scheduled albuterol HFA bid as is helping -is now here > 72 hours so no longer qualifies for baricitinib or Toci -Monitor inflammatory markers, CBC, CMP -continue supplemental O2--> asked RT to eval for switch to Vapotherm given high O2 requirement by NC so she can get some PEEP (2) Hypoxia: Plan: Secondary to COVID-19 pneumonia. As above (3) Elevated troponin: Plan: Most likely due to demand ischemia, mild T wave changes serial trops came back down Patient denies any chest pain. (4) PAF (paroxysmal atrial fibrillation): Plan: Patient is on Eliquis at home, will continue -is in SB and NSR here Also continue amiodarone (5) Metastatic carcinoid tumor: Plan: Follows up with oncologist every month, currently on treatment with lanreotide (6) Urinary symptom or sign: Plan: Was retaining some urine on 01/12 requiring straight catheterization This is now improving but persists, bladder scans 230mL at times UA neg for infection COuld be 2/2 constipation-treat this as below continue to bladder scan and straight cath as needed (7) Constipation: Plan: cannot tolerate Miralax -add on senna/docusate -drinking apple juice Plan: DVT Proph-ELiquis Dispo-continued stay on tele in COVID unit Gave her daughter and update by phone on 01/12 and 01/13 and will call again today Admission and Anticipated Discharge Date Admission Date: January 11, 2021 Subjective Still feels weak, O2 up to 14L today but POx 98% at rest when lying on her side, drops with going to bedside commode. Still with bad cough. Feels the albuterol HFA really helped her. Is still retaining cate eurine with bladder scans PVR 230mL as per RN. No BM in 5 days Review of Systems Review of Systems: All systems reviewed & are unremarkable except as noted in HPI & below Physical Exam Constitutional: WD/WN, vitals as above Eyes: + anicteric sclerae Neck: trachea midline, no thyromegaly Respiratory: normal respiratory effort and + cough Auscultation: + crackles (bibasilar); no rhonchi and no wheezes Cardiovascular: RRR, no murmur, no edema Chest (Breasts): Chest: normal inspection of chest Gastrointestinal (Abdomen): normal bowel sounds, soft, nontender, no hepat osplenomegaly Musculoskeletal: Extremities: extremities normal to inspection; no cyanosis and no clubbing Skin: no rashes, warm and dry Neurologic: moves all extremities and awake; no focal motor deficits Psychiatric: A+Ox3, euthymic affect Lymphatic: no lymphedema Results & Data Results & Data ([facility]) Vital Signs (Past 12 Hours) Vital Signs Temp Pulse Pulse Resp BP Pulse Ox 01/14/21 15:43 36.4 C L 47 L 17 108/62 97 01/14/21 15:00 49 L 01/14/21 11:42 36.5 C 67 19 146/90 H 93 01/14/21 10:27 48 L 01/14/21 08:24 68 18 89 L Laboratory Results 01/14/21 05:32 01/14/21 05:32 PG Care Time/CCT Total # of Minutes Spent Total Time Spent with Patient: Total time spent is greater than 50% in coordination of care (as documented) at patient's floor/unit and/or counseling patient: Coding Level of Care Code 59877 Subseq Hosp Care Lvl 3 Diagnoses 2019 novel coronavirus-infected pneumonia (NCIP) U07.1; J12.82 Hypoxia R09.02 Elevated troponin R77.8 PAF (paroxysmal atrial fibrillation) I48.0 Metastatic carcinoid tumor C7B.00 Urinary symptom or sign R39.9 Constipation K59.00
[2021-01-14] MEDS: DOCUSATE SODIUM/SENNA 50/8.6MG TAB PO SCH (17:23)
[2021-01-14] MEDS: ACETAMINOPHEN 325 MG TAB PO PRN (17:24)
[2021-01-14] MEDS: REMDESIVIR 100 MG in SODIUM CHLORIDE 0.9% 230 ML IV SCH (19:27)
[2021-01-14] MEDS: BENZONATATE 100 MG CAPSULE PO SCH (20:41)
[2021-01-15] MEDS: SODIUM CHLORIDE 0.9% 10ML FLUSH IV SCH ×2 (00:31→21:38)
[2021-01-15] MEDS: ALBUTEROL HFA 8 GM INHALER INH SCH ×2 (05:45→18:55)
[2021-01-15] MEDS: guaiFENesin 600 MG TABCR PO SCH ×2 (08:18→20:02)
[2021-01-15] MEDS: LORATADINE 10 MG TAB PO PRN (08:18)
[2021-01-15] MEDS: AMIODARONE 200 MG TAB PO SCH (08:18)
[2021-01-15] MEDS: BENZONATATE 100 MG CAPSULE PO SCH ×3 (08:18→20:01)
[2021-01-15] MEDS: DOCUSATE SODIUM/SENNA 50/8.6MG TAB PO SCH ×2 (08:18→21:39)
[2021-01-15] MEDS: CHOLECALCIFEROL 1,000 UNITS 25 MCG TAB PO SCH (08:19)
[2021-01-15] MEDS: APIXABAN 5 MG TABLET PO SCH ×2 (08:19→20:01)
[2021-01-15] MEDS: dexAMETHasone 6 MG in SYRINGE 0 ML IV SCH (08:28)
[2021-01-15] MEDS ORDERED: bisacodyL 5 MG TABEC PO ONE (09:52)
[2021-01-15] MEDS: REMDESIVIR 100 MG in SODIUM CHLORIDE 0.9% 230 ML IV SCH (19:54)
--- NOTE | 2021-01-15 20:17 | Hospitalist Progress Note ---
Date of Service January 15, 2021 Assessment & Plan (1) 2019 novel coronavirus-infected pneumonia (NCIP): Plan: Patient is an unvaccinated female, tested positive for COVID-19 a couple of days prior to admission in an urgent care center. Presents to the hospital with worsening shortness of breath, found to be hypoxic. Chest x-ray was done which showed evidence of infiltrates. O2 requirements continued to escalate over the first several days of admission up to 14L Oxymask at rest, but now much improved and is weaned down to 6 L nasal cannula Bad cough is now improving with scheduled Tessalon Perles CRP high at 11.9 on admission now improving down to 4 -continue decadron x10-day course, and Remdesevir x5-day course -continue to use/encourage IS and flutter valve -Continue scheduled tessalon perle 3 times daily -continue scheduled albuterol HFA bid as is helping -Monitor inflammatory markers, CBC, CMP -continue supplemental O2-wean off as tolerated (2) Hypoxia: Plan: Secondary to COVID-19 pneumonia. As above (3) Elevated troponin: Plan: Most likely due to demand ischemia, mild T wave changes serial trops came back down Patient denies any chest pain. (4) PAF (paroxysmal atrial fibrillation): Plan: Patient is on Eliquis at home, will continue -is in SB and NSR here Also continue amiodarone (5) Metastatic carcinoid tumor: Plan: Follows up with oncologist every month, currently on treatment with lanreotide (6) Urinary symptom or sign: Plan: Was retaining some urine on 01/12 requiring straight catheterization x2 This is persisting, bladder scans 200 mL at times, but no longer requiring straight catheterization UA neg for infection COuld be 2/2 constipation-treat this as below continue to bladder scan and straight cath as needed (7) Constipation: Plan: cannot tolerate Miralax No bowel movement since 01/10 Increase senna/docusate to twice daily and give bisacodyl 5 mg p.o. x1 now -drinking apple juice and she will add on prune juice today Plan: DVT Proph-ELiquis Dispo-continued stay on tele in COVID unit Gave her daughter and update by phone on 01/12, 01/13, and on 01/14 Admission and Anticipated Discharge Date Admission Date: January 11, 2021 Subjective Patient reports she is feeling better today, little bit more energy. She reports her cough is improved since she has been on scheduled Tessalon Perles Still having urinary frequency and with post void residuals around 200 mL. Still has not had a bowel movement in 6 days. She is passing a lot of flatus today though. Appetite is good. She is still dropping her sats a bit when she gets up to the bedside commode. Telemetry with sinus bradycardia with rates in the 50s to 60s Review of Systems Review of Systems: All systems reviewed & are unremarkable except as noted in HPI & below Physical Exam Constitutional: WD/WN, vitals as above Eyes: + anicteric sclerae Neck: trachea midline, no thyromegaly Respiratory: normal respiratory effort Auscultation: + crackles (bibasilar); no rhonchi and no wheezes Cardiovascular: RRR, no murmur, no edema Chest (Breasts): Chest: normal inspection of chest Gastrointestinal (Abdomen): normal bowel sounds, soft, nontender, no hepatosplenomegaly Musculoskeletal: Extremities: extremities normal to inspection; no cyanosis and no clubbing Skin: no rashes, warm and dry Neurologic: moves all extremities and awake; no focal motor deficits Psychiatric: A+Ox3, euthymic affect Lymphatic: no lymphedema Results & Data Results & Data ([facility]) Vital Signs (Past 12 Hours) Vital Signs Temp Pulse Resp BP Pulse Ox 01/15/21 19:41 36.6 C 57 L 20 115/71 91 01/15/21 18:55 60 18 91 01/15/21 16:10 36.4 C L 53 L 16 131/73 93 PG Care Time/CCT Total # of Minutes Spent Total Time Spent with Patient: Total time spent is greater than 50% in coordination of care (as documented) at patient's floor/unit and/or counseling patient: Coding Level of Care Code 45238 Subseq Hosp Care Lvl 2 Diagnoses 2019 novel coronavirus-infected pneumonia (NCIP) U07.1; J12.82 Hypoxia R09.02 Elevated troponin R77.8 PAF (paroxysmal atrial fibrillation) I48.0 Metastatic carcinoid tumor C7B.00 Urinary symptom or sign R39.9 Constipation K59.00
[2021-01-16] MEDS: ALBUTEROL HFA 8 GM INHALER INH SCH (05:32)
[2021-01-16 06:49] LABS: Basophils # (auto) 0.01 K/uL (0-0.2); Basophils % (auto) 0.1 %; Hematocrit (blood only) 32.3 % (37-47); Hemoglobin 10.2 g/dL (12.0-16.0); Immature Granulocytes # (auto) 0.13 K/uL (0.00-0.02); Immature Granulocytes % (auto) 1.1 %; Lymphocytes # (auto) 1.04 K/uL (1.2-3.4); Mean Corpuscular Hemoglobin 29.1 pg (25-34); Mean Corpuscular Hgb Conc 31.6 g/dL (32-36); Mean Corpuscular Volume 92.3 fL (80-100); Mean Platelet Volume 9.9 fL (7.4-10.4); Monocytes # (auto) 0.59 K/uL (0.11-0.59); Monocytes % (auto) 5.1 %; Neutrophils # (auto) 9.75 K/uL (1.4-6.5); Neutrophils % (auto) 84.7 %; Platelet Count 612 K/uL (130-400); RDW Coefficient of Variation 16.4 % (11.5-14.5); RDW Standard Deviation 55.1 fL (36.4-46.3); White Blood Count 11.52 K/uL (4.8-10.8)
[2021-01-16 07:20] LABS: Potassium 4.2 mmol/L (3.5-5.1)
[2021-01-16 08:17] LABS: BUN Creatinine Ratio 22.3 (10-20); C Reactive Protein 2.4 mg/dl (0-0.29); Calcium 7.9 mg/dl (8.5-10.1); Creatinine Clr Calc Pharmacy 42.8 ml/min; Est GFR (African American) 68.8 ml/min; Est GFR (Non-African American) 59.3 ml/min; Magnesium 2.6 mg/dl (1.8-2.4)
[2021-01-16 08:20] LABS: Albumin Globulin Ratio 0.5 (0.9-2); Bilirubin,Total 0.3 mg/dl (0.2-1); Globulin 3.8 gm/dl (2.5-4.0); Total Protein 5.8 gm/dl (6.4-8.2)
[2021-01-16] MEDS: CHOLECALCIFEROL 1,000 UNITS 25 MCG TAB PO SCH (08:30)
[2021-01-16] MEDS: LORATADINE 10 MG TAB PO PRN (08:30)
[2021-01-16] MEDS: DOCUSATE SODIUM/SENNA 50/8.6MG TAB PO SCH ×2 (08:30→19:43)
[2021-01-16] MEDS: guaiFENesin 600 MG TABCR PO SCH ×2 (08:30→19:43)
[2021-01-16] MEDS: AMIODARONE 200 MG TAB PO SCH (08:31)
[2021-01-16] MEDS: APIXABAN 5 MG TABLET PO SCH ×2 (08:31→19:43)
[2021-01-16] MEDS: BENZONATATE 100 MG CAPSULE PO SCH ×3 (08:31→19:43)
[2021-01-16] MEDS: dexAMETHasone 6 MG in SYRINGE 0 ML IV SCH (08:35)
[2021-01-16] MEDS ORDERED: ALBUTEROL HFA 8 GM INHALER INH PRN (09:27)
[2021-01-16] MEDS ORDERED: SODIUM CHLORIDE 0.65% NA SOLN 45 ML (OCEAN) PRN (18:06)
--- NOTE | 2021-01-16 18:11 | Hospitalist Progress Note ---
Date of Service January 16, 2021 Assessment & Plan (1) 2019 novel coronavirus-infected pneumonia (NCIP): Plan: Patient is an unvaccinated female, tested positive for COVID-19 a couple of days prior to admission in an urgent care center. Presents to the hospital with worsening shortness of breath, found to be hypoxic. Chest x-ray was done which showed evidence of infiltrates. O2 requirements continued to escalate over the first several days of admission up to 14L Oxymask at rest, but now much improved and is weaned down to 6-7 L nasal cannula Bad cough is now improving with scheduled Tessalon Perles CRP high at 11.9 on admission now improving down to 2 -continue decadron x10-day course, and Remdesevir x5-day course -continue to use/encourage IS and flutter valve -Continue scheduled tessalon perle 3 times daily -continue scheduled albuterol HFA bid as is helping -Monitor inflammatory markers, CBC, CMP -continue supplemental O2-wean off as tolerated -add nasal saline for prevention of recurrent epistaxis (2) Hypoxia: Plan: Secondary to COVID-19 pneumonia. As above (3) Elevated troponin: Plan: Most likely due to demand ischemia, mild T wave changes serial trops came back down Patient denies any chest pain. (4) PAF (paroxysmal atrial fibrillation): Plan: Patient is on Eliquis at home, will continue -is in SB and NSR here Also continue amiodarone (5) Metastatic carcinoid tumor: Plan: Follows up with oncologist every month, currently on treatment with lanreotide (6) Urinary symptom or sign: Plan: Was retaining some urine on 01/12 requiring straight catheterization x2 This is persisting, bladder scans 200 mL at times, and now with Banuelos in place since 01/16 UA neg for infection COuld be 2/2 constipation-treat this as below. Bowels now moving so will try to remove Banuelos tomorrow continue to bladder scan and straight cath as needed (7) Constipation: Plan: cannot tolerate Miralax No bowel movement since 01/10, but then had on e on 01/16 continue senna/docusate twice daily and gave bisacodyl 5 mg p.o. x1 -drinking apple juice and prune juice Plan: DVT Proph-ELiquis Dispo-continued stay on tele in COVID unit Admission and Anticipated Discharge Date Admission Date: January 11, 2021 Subjective Pt still with cough. She finally moved her bowels but had to have a Banuelos placed last night for persistent urinary retention. Is on *LNC when I saw her and I wened her down to 7L when I was in there and POx remained at 95%. Had a slight bloody nose today also. Tele with SB rates 40-50s Review of Systems Review of Systems: All systems reviewed & are unremarkable except as noted in HPI & below Physical Exam Constitutional: WD/WN, vitals as above Eyes: + anicteric sclerae Neck: trachea midline, no thyromegaly Respiratory: normal respiratory effort Auscultation: + crackles (bibasilar); no rhonchi and no wheezes Cardiovascular: RRR, no murmur, no edema Chest (Breasts): Chest: normal inspection of chest Gastrointestinal (Abdomen): normal bowel sounds, soft, nontender, no hepatosplenomegaly Musculoskeletal: Extremities: extremities normal to inspection; no cyanosis and no clubbing Skin: no rashes, warm and dry Neurologic: moves all extremities and awake; no focal motor deficits Psychiatric: A+Ox3, euthymic affect Lymphatic: no lymphedema Results & Data Results & Data ([facility]) Vital Signs (Past 12 Hours) Vital Signs Temp Pulse Pulse Resp BP Pulse Ox 01/16/21 15:50 36.5 C 55 L 19 97/61 L 95 01/16/21 11:22 36.6 C 56 L 18 120/68 94 01/16/21 07:10 36.5 C 60 19 118/68 90 01/16/21 06:27 65 Laboratory Results 01/16/21 01/16/21 Range/Units 05:39 05:39 WBC 11.52 H (4.8-10.8) K/uL RBC 3.50 L (4.2-5.4) M/uL Hgb 10.2 L (12.0-16.0) g/dL Hct 32.3 L (37-47) % MCV 92.3 (80-100) fL MCH 29.1 (25-34) pg MCHC 31.6 L (32-36) g/dL RDW Std Deviation 55.1 H (36.4-46.3) fL RDW Coeff of Myra 16.4 H (11.5-14.5) % Plt Count 612 H (130-400) K/uL MPV 9.9 (7.4-10.4) fL Immature Gran % (Auto) 1.1 % Neut % (Auto) 84.7 % Lymph % (Auto) 9.0 % Upson % (Auto) 5.1 % Eos % (Auto) 0.0 % Baso % (Auto) 0.1 % Neut # (Auto) 9.75 H (1.4-6.5) K/uL Lymph # (Auto) 1.04 L (1.2-3.4) K/uL Upson # (Auto) 0.59 (0.11-0.59) K/uL Eos # (Auto) 0.00 (0-0.5) K/uL Baso # (Auto) 0.01 (0-0.2) K/uL Immature Gran # (Auto) 0.13 H (0.00-0.02) K/uL Sodium 140 (136-145) mmol/L Potassium 4.2 (3.5-5.1) mmol/L Chloride 106 (98-107) mmol/L Carbon Dioxide 26 (21-32) mmol/L Anion Gap 8.0 (3-11) BUN 21 H (7-18) mg/dl Creatinine 0.94 (0.6-1.2) mg/dl Est Cr Clr Drug Dosing 42.8 ml/min Est GFR ( Amer) 68.8 ml/min Est GFR (Non-Af Amer) 59.3 ml/min BUN/Creatinine Ratio 22.3 H (10-20) Glucose 120 H (70-99) mg/dl Calcium 7.9 L (8.5-10.1) mg/dl Magnesium 2.6 H (1.8-2.4) mg/dl Total Bilirubin 0.3 (0.2-1) mg/dl AST 19 (15-37) U/L ALT 15 (12-78) U/L Alkaline Phosphatase 118 H (45-117) U/L C-Reactive Protein 2.40 H (0-0.29) mg/dl Total Protein 5.8 L (6.4-8.2) gm/dl Albumin 2.0 L (3.4-5.0) gm/dl Globulin 3.8 (2.5-4.0) gm/dl Albumin/Globulin Ratio 0.5 L (0.9-2) PG Care Time/CCT Total # of Minutes Spent Total Time Spent with Patient: Total time spent is greater than 50% in coordination of care (as documented) at patient's floor/unit and/or counseling patient: Coding Level of Care Code 32055 Subseq Hosp Care Lvl 3 Diagnoses 2019 novel coronavirus-infected pneumonia (NCIP) U07.1; J12.82 Hypoxia R09.02 Elevated troponin R77.8 PAF (paroxysmal atrial fibrillation) I48.0 Metastatic carcinoid tumor C7B.00 Urinary symptom or sign R39.9 Constipation K59.00
[2021-01-17 07:39] LABS: Creatinine Clr Calc Pharmacy 47.3 ml/min; Est GFR (African American) 70.6 ml/min; Est GFR (Non-African American) 60.9 ml/min
[2021-01-17] MEDS: BENZONATATE 100 MG CAPSULE PO SCH ×3 (08:32→20:06)
[2021-01-17] MEDS: DOCUSATE SODIUM/SENNA 50/8.6MG TAB PO SCH ×2 (08:32→20:08)
[2021-01-17] MEDS: CHOLECALCIFEROL 1,000 UNITS 25 MCG TAB PO SCH (08:32)
[2021-01-17] MEDS: guaiFENesin 600 MG TABCR PO SCH ×2 (08:32→20:07)
[2021-01-17] MEDS: AMIODARONE 200 MG TAB PO SCH (08:32)
[2021-01-17] MEDS: LORATADINE 10 MG TAB PO PRN (08:32)
[2021-01-17] MEDS: APIXABAN 5 MG TABLET PO SCH ×2 (08:33→20:07)
[2021-01-17] MEDS: dexAMETHasone 6 MG in SYRINGE 0 ML IV SCH (08:33)
[2021-01-17] MEDS: ACETAMINOPHEN 325 MG TAB PO PRN (08:37)
--- NOTE | 2021-01-17 16:58 | Hospitalist Progress Note ---
Date of Service January 17, 2021 Assessment & Plan (1) 2019 novel coronavirus-infected pneumonia (NCIP): Plan: Patient is an unvaccinated female, tested positive for COVID-19 a couple of days prior to admission in an urgent care center. Presents to the hospital with worsening shortness of breath, found to be hypoxic. Chest x-ray was done which showed evidence of infiltrates. O2 requirements continued to escalate over the first several days of admission up to 14L Oxymask at rest, but now much improved but remains stable at 6-8 L nasal cannula for several days Bad cough is now improving with scheduled Tessalon Perles CRP high at 11.9 on admission now improving down to 2 -continue decadron x10-day course, and completed Remdesevir x5-day course -continue to use/encourage IS and flutter valve -Continue scheduled tessalon perle 3 times daily -continue scheduled albuterol HFA bid as is helping-made prn today -Monitor inflammatory markers, CBC, CMP -continue supplemental O2-wean off as tolerated -continue nasal saline for prevention of recurrent epistaxis (2) Hypoxia: Plan: Secondary to COVID-19 pneumonia. As above (3) Elevated troponin: Plan: Most likely due to demand ischemia, mild T wave changes serial trops came back down Patient denies any chest pain. (4) PAF (paroxysmal atrial fibrillation): Plan: Patient is on Eliquis at home, will continue -is in SB and NSR here Also continue amiodarone (5) Metastatic carcinoid tumor: Plan: Follows up with oncologist every month, currently on treatment with lanreotide (6) Urinary symptom or sign: Plan: Was retaining some urine on 01/12 requiring straight catheterization x2 This is persisting, bladder scans 200 mL PVR, and now with Banuelos in place since 01/16 UA neg for infection COuld be 2/2 constipation-treat this as below. Bowels now moving so will try to remove Banuelos today for TOV continue to bladder scan and straight cath as needed (7) Constipation: Plan: cannot tolerate Miralax No bowel movement since 01/10, but then had several on 01/16 continue senna/docusate twice daily and gave bisacodyl 5 mg p.o. x1 -drinking apple juice and prune juice Plan: DVT Proph-ELiquis Dispo-continued stay on tele in COVID unit Admission and Anticipated Discharge Date Admission Date: January 11, 2021 Subjective Moved bowels several times yesterday. Feels breathing and cough are a bit better. Is on 8L when I saw her and moved her down to 7L with POx 93%. Tele with SB rates 50s Review of Systems Review of Systems: All systems reviewed & are unremarkable except as noted in HPI & below Physical Exam Constitutional: WD/WN, vitals as above Eyes: + anicteric sclerae Neck: trachea midline, no thyromegaly Respiratory: normal respiratory effort Auscultation: + crackles (bibasilar); no rhonchi and no wheezes Cardiovascular: RRR, no murmur, no edema Chest (Breasts): Chest: normal inspection of chest Gastrointestinal (Abdomen): normal bowel sounds, soft, nontender, no hepatosplenomegaly Musculoskeletal: Extremities: extremities normal to inspection; no cyanosis and no clubbing Skin: no rashes, warm and dry Neurologic: moves all extremities and awake; no focal motor deficits Psychiatric: A+Ox3, euthymic affect Lymphatic: no lymphedema Results & Data Results & Data ([facility]) Vital Signs (Past 12 Hours) Vital Signs Temp Pulse Resp BP Pulse Ox 01/17/21 16:02 36.6 C 56 L 18 98/49 L 94 01/17/21 12:16 36.5 C 54 L 17 103/59 L 95 01/17/21 06:23 36.7 C 60 17 145/74 H 98 Laboratory Results 01/17/21 Range/Units 06:49 Creatinine 0.92 (0.6-1.2) mg/dl Est Cr Clr Drug Dosing 47.3 ml/min Est GFR ( Amer) 70.6 ml/min Est GFR (Non-Af Amer) 60.9 ml/min PG Care Time/CCT Total # of Minutes Spent Total Time Spent with Patient: Total time spent is greater than 50% in coordination of care (as documented) at patient's floor/unit and/or counseling patient: Coding Level of Care Code 97283 Subseq Hosp Care Lvl 3 Diagnoses 2019 novel coronavirus-infected pneumonia (NCIP) U07.1; J12.82 Hypoxia R09.02 Elevated troponin R77.8 PAF (paroxysmal atrial fibrillation) I48.0 Metastatic carcinoid tumor C7B.00 Urinary symptom or sign R39.9 Constipation K59.00
[2021-01-18] MEDS: DOCUSATE SODIUM/SENNA 50/8.6MG TAB PO SCH ×2 (08:58→20:51)
[2021-01-18] MEDS: dexAMETHasone 6 MG in SYRINGE 0 ML IV SCH (08:58)
[2021-01-18] MEDS: APIXABAN 5 MG TABLET PO SCH ×2 (08:58→20:50)
[2021-01-18] MEDS: guaiFENesin 600 MG TABCR PO SCH ×2 (08:58→20:50)
[2021-01-18] MEDS: LORATADINE 10 MG TAB PO PRN (08:59)
[2021-01-18] MEDS: CHOLECALCIFEROL 1,000 UNITS 25 MCG TAB PO SCH (08:59)
[2021-01-18] MEDS: BENZONATATE 100 MG CAPSULE PO SCH ×3 (08:59→20:50)
[2021-01-18] MEDS: AMIODARONE 200 MG TAB PO SCH (08:59)
[2021-01-18 09:16] LABS: Basophils # (auto) 0.02 K/uL (0-0.2); Basophils % (auto) 0.2 %; Eosinophils # (auto) 0.02 K/uL (0-0.5); Eosinophils % (auto) 0.2 %; Hematocrit (blood only) 33.8 % (37-47); Hemoglobin 10.7 g/dL (12.0-16.0); Immature Granulocytes # (auto) 0.26 K/uL (0.00-0.02); Immature Granulocytes % (auto) 2.2 %; Lymphocytes # (auto) 0.95 K/uL (1.2-3.4); Lymphocytes % (auto) 7.9 %; Mean Corpuscular Hemoglobin 29.3 pg (25-34); Mean Corpuscular Hgb Conc 31.7 g/dL (32-36); Mean Corpuscular Volume 92.6 fL (80-100); Mean Platelet Volume 10.2 fL (7.4-10.4); Monocytes # (auto) 0.75 K/uL (0.11-0.59); Monocytes % (auto) 6.3 %; Neutrophils # (auto) 9.96 K/uL (1.4-6.5); Neutrophils % (auto) 83.2 %; Nucleated RBC # (auto) 0.02 K/uL (0-0); Nucleated RBC % (auto) 0.2 %; Platelet Count 720 K/uL (130-400); RDW Coefficient of Variation 16.4 % (11.5-14.5); RDW Standard Deviation 54.7 fL (36.4-46.3); Red Blood Count 3.65 M/uL (4.2-5.4); White Blood Count 11.96 K/uL (4.8-10.8)
[2021-01-18 09:44] LABS: Albumin Level 2.2 gm/dl (3.4-5.0); BUN Creatinine Ratio 30.2 (10-20); C Reactive Protein 1.57 mg/dl (0-0.29); Creatinine Clr Calc Pharmacy 46.2 ml/min; Est GFR (African American) 75.5 ml/min; Est GFR (Non-African American) 65.2 ml/min; Magnesium 2.6 mg/dl (1.8-2.4); Potassium 4.2 mmol/L (3.5-5.1)
[2021-01-18 09:46] LABS: Albumin Globulin Ratio 0.5 (0.9-2); Bilirubin,Total 0.4 mg/dl (0.2-1); Globulin 4.1 gm/dl (2.5-4.0); Total Protein 6.4 gm/dl (6.4-8.2)
[2021-01-18] MEDS ORDERED: ALBUTEROL 0.083% NEBU SOLN 3 ML VIAL NEB STA (16:16)
--- NOTE | 2021-01-18 16:16 | Hospitalist Progress Note ---
Date of Service January 18, 2021 Assessment & Plan (1) 2019 novel coronavirus-infected pneumonia (NCIP): Plan: Patient is an unvaccinated female, tested positive for COVID-19 a couple of days prior to admission in an urgent care center. Presents to the hospital with worsening shortness of breath, found to be hypoxic. Chest x-ray was done which showed evidence of infiltrates. O2 requirements continued to escalate over the first several days of admission up to 14L Oxymask at rest, but now much improved but remains stable at 6-8 L nasal cannula for several days-not worsening or improving Bad cough is now improving with scheduled Tessalon Perles Having chest pain with cough and deep inspiration-continue to treat with antitussives and will see if adding albuterol nebulizer helps-do not think this is cardiac chest pain CRP high at 11.9 on admission now improving down to 1.5 -continue decadron x10-day course, and has now completed Remdesevir x5-day course -continue to use/encourage IS and flutter valve -Continue scheduled tessalon perle 3 times daily -continue albuterol HFA -Monitor inflammatory markers, CBC, CMP -continue supplemental O2-wean off as tolerated -continue nasal saline for prevention of recurrent epistaxis (2) Hypoxia: Plan: Secondary to COVID-19 pneumonia. As above (3) Elevated troponin: Plan: Most likely due to demand ischemia, mild T wave changes Mildly elevated troponin on admission-serial trops came back down Patient denies any chest pain. (4) PAF (paroxysmal atrial fibrillation): Plan: Patient is on Eliquis at home, will continue -is in SB and NSR here Also continue amiodarone (5) Metastatic carcinoid tumor: Plan: Follows up with oncologist every month, currently on treatment with lanreotide (6) Urinary symptom or sign: Plan: Was retaining some urine on 01/12 requiring straight catheterization x2 This persisted with bladder scans 200-300s mL PVR, and subsequently had Banuelos placed 01/16 UA neg for infection Could be worsened by constipation-constipation was treated and now bowels moving-discontinued Banuelos catheter on a.m. of 01/18 continue to bladder scan and straight cath as needed-PVR so far are 190-200 mL She has a history of interstitial cystitis which she reports causes her frequent urinary retention (7) Constipation: Plan: cannot tolerate Miralax No bowel movement since 01/10, but then had several on 01/16 continue senna/docusate twice daily -drinking apple juice and prune juice (8) Thrombocytosis: Plan: Platelets now up into the 700s, likely increased due to being acute phase reactant Follow CBC Plan: DVT Proph-ELiquis Dispo-continued stay on tele in COVID unit Admission and Anticipated Discharge Date Admission Date: January 11, 2021 Subjective Having pain in chest with coughing and with deep inspiration. Has been going on all week but seems worse today. Still bringing up large amount sof sputum. Oxygen was weaned down to 6 L when I saw her which is improved from previous. Her Banuelos catheter was removed this morning. Bladder scans showing slightly less than 200 mL post void residual. Patient reports that she has a history of interstitial cystitis causing urinary retention and it is highly dependent on some of the foods that she eats. Telemetry with normal sinus rhythm with rates in the 50s to 70s Review of Systems Review of Systems: All systems reviewed & are unremarkable except as noted in HPI & below Physical Exam Constitutional: WD/WN, vitals as above Eyes: + anicteric sclerae Neck: trachea midline, no thyromegaly Respiratory: normal respiratory effort Auscultation: + crackles (bibasilar); no rhonchi and no wheezes Cardiovascular: RRR, no murmur, no edema Chest (Breasts): Chest: normal inspection of chest Gastrointestinal (Abdomen): normal bowel sounds, soft, nontender, no hepatosplenomegaly Musculoskeletal: Extremities: extremities normal to inspection; no cyanosis and no clubbing Skin: no rashes, warm and dry Neurologic: moves all extremities and awake; no focal motor deficits Psychiatric: A+Ox3, euthymic affect Lymphatic: no lymphedema Results & Data Results & Data ([facility]) Vital Signs (Past 12 Hours) Vital Signs Temp Pulse Pulse Resp BP Pulse Ox 01/18/21 11:00 36.6 C 52 L 20 119/62 91 01/18/21 07:30 36.6 C 51 L 77 16 120/80 90 Laboratory Results 01/18/21 01/18/21 Range/Units 08:04 08:04 WBC 11.96 H (4.8-10.8) K/uL RBC 3.65 L (4.2-5.4) M/uL Hgb 10.7 L (12.0-16.0) g/dL Hct 33.8 L (37-47) % MCV 92.6 (80-100) fL MCH 29.3 (25-34) pg MCHC 31.7 L (32-36) g/dL RDW Std Deviation 54.7 H (36.4-46.3) fL RDW Coeff of Myra 16.4 H (11.5-14.5) % Plt Count 720 H (130-400) K/uL MPV 10.2 (7.4-10.4) fL Immature Gran % (Auto) 2.2 % Neut % (Auto) 83.2 % Lymph % (Auto) 7.9 % Slope % (Auto) 6.3 % Eos % (Auto) 0.2 % Baso % (Auto) 0.2 % Neut # (Auto) 9.96 H (1.4-6.5) K/uL Lymph # (Auto) 0.95 L (1.2-3.4) K/uL Slope # (Auto) 0.75 H (0.11-0.59) K/uL Eos # (Auto) 0.02 (0-0.5) K/uL Baso # (Auto) 0.02 (0-0.2) K/uL Immature Gran # (Auto) 0.26 H (0.00-0.02) K/uL Absolute Nucleated RBC 0.02 H (0-0) K/uL Nucleated RBC % (auto) 0.2 % Sodium 137 (136-145) mmol/L Potassium 4.2 (3.5-5.1) mmol/L Chloride 104 (98-107) mmol/L Carbon Dioxide 27 (21-32) mmol/L Anion Gap 6.0 (3-11) BUN 26 H (7-18) mg/dl Creatinine 0.87 (0.6-1.2) mg/dl Est Cr Clr Drug Dosing 46.2 ml/min Est GFR ( Amer) 75.5 ml/min Est GFR (Non-Af Amer) 65.2 ml/min BUN/Creatinine Ratio 30.2 H (10-20) Glucose 111 H (70-99) mg/dl Calcium 8.0 L (8.5-10.1) mg/dl Magnesium 2.6 H (1.8-2.4) mg/dl Total Bilirubin 0.4 (0.2-1) mg/dl AST 29 (15-37) U/L ALT 20 (12-78) U/L Alkaline Phosphatase 133 H (45-117) U/L C-Reactive Protein 1.57 H (0-0.29) mg/dl Total Protein 6.4 (6.4-8.2) gm/dl Albumin 2.2 L (3.4-5.0) gm/dl Globulin 4.1 H (2.5-4.0) gm/dl Albumin/Globulin Ratio 0.5 L (0.9-2) PG Care Time/CCT Total # of Minutes Spent Total Time Spent with Patient: Total time spent is greater than 50% in coordination of care (as documented) at patient's floor/unit and/or counseling patient: Coding Level of Care Code 28201 Subseq Hosp Care Lvl 3 Diagnoses 2019 novel coronavirus-infected pneumonia (NCIP) U07.1; J12.82 Hypoxia R09.02 Elevated troponin R77.8 PAF (paroxysmal atrial fibrillation) I48.0 Metastatic carcinoid tumor C7B.00 Urinary symptom or sign R39.9 Constipation K59.00 Thrombocytosis D75.839
[2021-01-19 07:23] LABS: Platelet Count 584 K/uL (130-400)
[2021-01-19 07:41] LABS: Hematocrit (blood only) 30.9 % (37-47); Hemoglobin 9.9 g/dL (12.0-16.0); Mean Corpuscular Hemoglobin 29.6 pg (25-34); Mean Corpuscular Volume 92.5 fL (80-100); Nucleated RBC # (auto) 0.08 K/uL (0-0); Nucleated RBC % (auto) 0.8 %; RDW Coefficient of Variation 16.7 % (11.5-14.5); RDW Standard Deviation 55.5 fL (36.4-46.3); Red Blood Count 3.34 M/uL (4.2-5.4)
[2021-01-19 07:42] LABS: Basophils # (auto) 0.01 K/uL (0-0.2); Basophils % (auto) 0.1 %; Echinocytes 2+; Eosinophils # (auto) 0.01 K/uL (0-0.5); Eosinophils % (auto) 0.1 %; Immature Granulocytes # (auto) 0.14 K/uL (0.00-0.02); Immature Granulocytes % (auto) 1.3 %; Lymphocytes # (auto) 0.63 K/uL (1.2-3.4); Lymphocytes % (auto) 5.8 %; Monocytes # (auto) 1.06 K/uL (0.11-0.59); Monocytes % (auto) 9.7 %; Neutrophils # (auto) 9.05 K/uL (1.4-6.5)
[2021-01-19 07:51] LABS: BUN Creatinine Ratio 23.6 (10-20); Creatinine Clr Calc Pharmacy 41.9 ml/min; Est GFR (African American) 67.1 ml/min; Est GFR (Non-African American) 57.9 ml/min; Potassium 4.3 mmol/L (3.5-5.1)
[2021-01-19 07:53] LABS: Albumin Globulin Ratio 0.5 (0.9-2); Bilirubin,Total 0.5 mg/dl (0.2-1); Globulin 3.8 gm/dl (2.5-4.0); Total Protein 5.8 gm/dl (6.4-8.2)
[2021-01-19] MEDS: guaiFENesin 600 MG TABCR PO SCH ×2 (09:15→21:47)
[2021-01-19] MEDS: BENZONATATE 100 MG CAPSULE PO SCH ×3 (09:15→21:49)
[2021-01-19] MEDS: AMIODARONE 200 MG TAB PO SCH (09:15)
[2021-01-19] MEDS: DOCUSATE SODIUM/SENNA 50/8.6MG TAB PO SCH ×2 (09:15→21:49)
[2021-01-19] MEDS: CHOLECALCIFEROL 1,000 UNITS 25 MCG TAB PO SCH (09:15)
[2021-01-19] MEDS: APIXABAN 5 MG TABLET PO SCH ×2 (09:16→21:47)
[2021-01-19] MEDS: dexAMETHasone 6 MG in SYRINGE 0 ML IV SCH (09:16)
[2021-01-19] MEDS: ACETAMINOPHEN 325 MG TAB PO PRN (10:10)
--- NOTE | 2021-01-19 10:15 | Hospitalist Progress Note ---
Date of Service January 19, 2021 Assessment & Plan (1) 2019 novel coronavirus-infected pneumonia (NCIP): Plan: Patient is an unvaccinated female, tested positive for COVID-19 a couple of days prior to admission in an urgent care center. Presents to the hospital with worsening shortness of breath, found to be hypoxic. Chest x-ray was done which showed evidence of infiltrates. O2 requirements continued to escalate over the first several days of admission up to 14L Oxymask at rest, but now much improved but remains stable at 6-8 L nasal cannula for several days-not worsening or improving on 6L today, will give Lasix 20mg IV now, see if diuresis gets her down to a reasonable level she looks and feels really good, will try to discharge home on oxygen Bad cough is now improving with scheduled Tessalon Perles Having chest pain with cough and deep inspiration-continue to treat with antitussives and will see if adding albuterol nebulizer helps-do not think this is cardiac chest pain CRP high at 11.9 on admission now improving down to 1.5 -continue decadron x10-day course, day 8 today has now completed Remdesevir x5-day course -continue to use/encourage IS and flutter valve -Continue scheduled tessalon perle 3 times daily -continue albuterol HFA (2) Hypoxia: Plan: Secondary to COVID-19 pneumonia. As above on 6L, no distress, try to wean after dose of lasix this morning (3) Elevated troponin: Plan: Most likely due to demand ischemia, mild T wave changes Mildly elevated troponin on admission-serial trops came back down Patient denies any chest pain. (4) PAF (paroxysmal atrial fibrillation): Plan: Patient is on Eliquis at home, will continue -is in SB and NSR here Also continue amiodarone (5) Metastatic carcinoid tumor: Plan: Follows up with oncologist every month, currently on treatment with lanreotide (6) Urinary symptom or sign: Plan: Was retaining some urine on 01/12 requiring straight catheterization x2 This persisted with bladder scans 200-300s mL PVR, and subsequently had Banuelos placed 01/16 UA neg for infection Could be worsened by constipation-constipation was treated and now bowels m oving-discontinued Banuelos catheter on a.m. of 01/18 continue to bladder scan and straight cath as needed-PVR so far are 190-200 mL She has a history of interstitial cystitis which she reports causes her frequent urinary retention (7) Constipation: Plan: cannot tolerate Miralax No bowel movement since 01/10, but then had several on 01/16 continue senna/docusate twice daily -drinking apple juice and prune juice (8) Thrombocytosis: Plan: Platelets now up into the 700s, likely increased due to being acute phase reactant Follow CBC Plan: DVT Proph-ELiquis Dispo-continued stay on tele in COVID unit Admission and Anticipated Discharge Date Admission Date: January 11, 2021 Subjective patient says she is feeling well, wants to go home by Thanksgiving while in the room I turned her from 8L to 6L mask, saturations 95% reviewed chart, no recent Lasix given, will give 20mg IV Lasix to see if we can get her on less oxygen she is day 8 of hospitalization, coughing less, less dyspnea, no fever/chills eating really well, OOB to her chair hopeful for discharge soon Review of Systems Review of Systems: All systems reviewed & are unremarkable except as noted in Subjective Physical Exam Physical Exam: General: well developed, well nourished, no acute distress, comfortable Neck: supple, trachea midline, normal thyroid Lungs: clear to auscultation bilaterally, normal respiratory effort, no accessory muscle use, no distress Heart: regular S1 and S2, no murmur, peripheral pulses normal, capillary refill normal, no edema Abdomen: soft, NT, ND, + BS, no hepatomegaly, normal to percussion Extremities: normal in appearance, no cyanosis, no petechiae, strength is 5/5 bilaterally Neuro: awake, cooperative, moves all extremities, no focal motor deficits, CN II-XII intact, sensation in extremities intact, normal speech Skin: warm, dry, no rash, normal turgor Psych: Awake, alert oriented x 3, euthymic affect Results & Data Results & Data ([facility]) Vital Signs (Past 12 Hours) Vital Signs Temp Pulse Pulse Resp BP Pulse Ox 01/19/21 04:04 36.5 C 60 18 135/73 93 01/18/21 23:00 36.6 C 69 18 114/67 93 01/18/21 22:19 52 L Laboratory Results Laboratory Results - last 24 hr 01/19/21 01/19/21 06:17 06:17 WBC 10.90 H RBC 3.34 L Hgb 9.9 L Hct 30.9 L MCV 92.5 MCH 29.6 MCHC 32.0 RDW Std Deviation 55.5 H RDW Coeff of Myar 16.7 H Plt Count 584 H MPV 10.0 Immature Gran % (Auto) 1.3 Neut % (Auto) 83.0 Lymph % (Auto) 5.8 Pitt % (Auto) 9.7 Eos % (Auto) 0.1 Baso % (Auto) 0.1 Neut # (Auto) 9.05 H Lymph # (Auto) 0.63 L Pitt # (Auto) 1.06 H Eos # (Auto) 0.01 Baso # (Auto) 0.01 Immature Gran # (Auto) 0.14 H Absolute Nucleated RBC 0.08 H Nucleated RBC % (auto) 0.8 Echinocytes 2+ Sodium 138 Potassium 4.3 Chloride 104 Carbon Dioxide 27 Anion Gap 7.0 BUN 23 H Creatinine 0.96 Est Cr Clr Drug Dosing 41.9 Est GFR ( Amer) 67.1 Est GFR (Non-Af Amer) 57.9 BUN/Creatinine Ratio 23.6 H Glucose 147 H Calcium 8.0 L Total Bilirubin 0.5 AST 19 ALT 18 Alkaline Phosphatase 116 Total Protein 5.8 L Albumin 2.0 L Globulin 3.8 Albumin/Globulin Ratio 0.5 L Medications Administered Current Inpatient Medications Acetaminophen (Acetaminophen 325 Mg Tab) 650 mg PO Q4H PRN PRN Reason: Pain or Fever Stop: 02/10/21 17:40 Last Admin: 01/19/21 10:10 Dose: 650 mg Documented by: Albuterol (Albuterol Hfa 8 Gm Inhaler) 2 puffs INH Q4 PRN PRN Reason: Shortness Of Breath Or Wheezing Stop: 02/15/21 11:59 Last Admin: 01/16/21 20:23 Dose: 2 puffs Documented by: Amiodarone HCl (Amiodarone 200 Mg Tab) 200 mg PO QAM [facility] Stop: 02/11/21 08:59 Last Admin: 01/19/21 09:15 Dose: 200 mg Documented by: Apixaban (Apixaban 5 Mg Tablet) 5 mg PO BID [facility] Stop: 02/10/21 20:59 Last Admin: 01/19/21 09:16 Dose: 5 mg Documented by: Benzonatate (Benzonatate 100 Mg Capsule) 100 mg PO TID [facility]IVEK Stop: 02/13/21 20:59 Last Admin: 01/19/21 09:15 Dose: 100 mg Documented by: Guaifenesin (Guaifenesin 600 Mg Tabcr) 600 mg PO Q12 [facility] Stop: 02/10/21 20:59 Last Admin: 01/19/21 09:15 Dose: 600 mg Documented by: Dexamethasone 6 mg/ Syringe 1.5 mls @ 1 mls/min IV DAILY [facility]IVEK Stop: 02/11/21 08:59 Last Admin: 01/19/21 09:16 Dose: 1 mls/min Documented by: Loratadine (Loratadine 10 Mg Tab) 10 mg PO QAM PRN PRN Reason: ALLERGIES Stop: 02/10/21 17:45 Last Admin: 01/18/21 08:59 Dose: 10 mg Documented by: Nitroglycerin (Nitroglycerin Sl 0.4 Mg/Tab Tab) 0.4 mg SL UD PRN PRN Reason: Chest Pain Stop: 02/10/21 20:01 Ondansetron HCl (Ondansetron Inj 2 Mg/Ml 2 Ml Vial) 4 mg IV Q6H PRN PRN Reason: Nausea Stop: 02/10/21 20:01 Last Admin: 01/12/21 23:51 Dose: 4 mg Documented by: Polyethylene Glycol (Polyethylene (Miralax) 17 Gm Pack) 17 gm PO DAILY PRN PRN Reason: Constipation Stop: 02/10/21 20:01 Senna/Docusate Sodium (Docusate Sodium/Senna 50/8.6mg Tab) 1 tab PO BID [facility]K Stop: 02/14/21 20:59 Last Admin: 01/19/21 09:15 Dose: 1 tab Documented by: Sodium Chloride (Sodium Chloride 0.65% Na Soln 45 Ml (Anthony)) 2 sprays NA Q2H PRN PRN Reason: nasal dryness Stop: 02/15/21 18:05 Vitamin D (Cholecalciferol 1,000 Units 25 Mcg Tab) 2,000 units PO QAM [facility] Stop: 02/11/21 08:59 Last Admin: 01/19/21 09:15 Dose: 2,000 units Documented by: PG Care Time/CCT Total # of Minutes Spent Total Time Spent with Patient: Total time spent is greater than 50% in coordination of care (as documented) at patient's floor/unit and/or counseling patient: Coding Level of Care Code 43916 Subseq Hosp Care Lvl 2 Diagnoses 2019 novel coronavirus-infected pneumonia (NCIP) U07.1; J12.82 Hypoxia R09.02 Elevated troponin R77.8 PAF (paroxysmal atrial fibrillation) I48.0 Metastatic carcinoid tumor C7B.00 Urinary symptom or sign R39.9 Constipation K59.00 Thrombocytosis D75.839
[2021-01-19] MEDS ORDERED: FUROSEMIDE INJ 20 MG/2 ML VIAL IV ONE (10:30)
[2021-01-20 07:03] LABS: Creatinine Clr Calc Pharmacy 39.8 ml/min; Est GFR (African American) 63.1 ml/min; Est GFR (Non-African American) 54.4 ml/min
[2021-01-20] MEDS: FUROSEMIDE INJ 20 MG/2 ML VIAL IV SCH (08:14)
[2021-01-20] MEDS: BENZONATATE 100 MG CAPSULE PO SCH ×3 (08:14→21:34)
[2021-01-20] MEDS: CHOLECALCIFEROL 1,000 UNITS 25 MCG TAB PO SCH (08:14)
[2021-01-20] MEDS: guaiFENesin 600 MG TABCR PO SCH ×2 (08:14→21:35)
[2021-01-20] MEDS: DOCUSATE SODIUM/SENNA 50/8.6MG TAB PO SCH ×2 (08:14→21:35)
[2021-01-20] MEDS: dexAMETHasone 6 MG in SYRINGE 0 ML IV SCH (08:14)
[2021-01-20] MEDS: AMIODARONE 200 MG TAB PO SCH (08:15)
[2021-01-20] MEDS: APIXABAN 5 MG TABLET PO SCH ×2 (08:15→21:35)
[2021-01-20 12:13] LABS: Hematocrit (blood only) 31.6 % (37-47); Hemoglobin 10.3 g/dL (12.0-16.0); Mean Corpuscular Hemoglobin 29.8 pg (25-34); Mean Corpuscular Hgb Conc 32.6 g/dL (32-36); Mean Corpuscular Volume 91.3 fL (80-100); Mean Platelet Volume 10.1 fL (7.4-10.4); Platelet Count 555 K/uL (130-400); RDW Coefficient of Variation 16.8 % (11.5-14.5); Red Blood Count 3.46 M/uL (4.2-5.4)
[2021-01-20 12:23] LABS: BUN Creatinine Ratio 26.5 (10-20); Blood Urea Nitrogen 27 mg/dl (7-18); Calcium 7.8 mg/dl (8.5-10.1); Carbon Dioxide 29 mmol/L (21-32); Chloride 104 mmol/L (98-107); Creatinine Clr Calc Pharmacy 39.4 ml/min; Est GFR (African American) 62.3 ml/min; Est GFR (Non-African American) 53.8 ml/min; Glucose 112 mg/dl (70-99); Potassium 4.5 mmol/L (3.5-5.1); Sodium 137 mmol/L (136-145)
[2021-01-20 12:28] LABS: Troponin I < 0.015 ng/ml (0-0.045)
--- NOTE | 2021-01-20 20:08 | Hospitalist Progress Note ---
Date of Service January 20, 2021 Assessment & Plan (1) 2019 novel coronavirus-infected pneumonia (NCIP): Plan: Patient is an unvaccinated female, tested positive for COVID-19 a couple of days prior to admission in an urgent care center. Presents to the hospital with worsening shortness of breath, found to be hypoxic. Chest x-ray was done which showed evidence of infiltrates. O2 requirements continued to escalate over the first several days of admission up to 14L Oxymask at rest but now much improved, down to 3L today, no distress, can likely titrate further Bad cough is now improving with scheduled Tessalon Perles CRP down to 1.5 when last checked -continue decadron x10-day course, day 9 today has now completed Remdesevir x5-day course -continue to use/encourage IS and flutter valve -Continue scheduled tessalon perle 3 times daily -continue albuterol HFA could be ready for discharge 01/21 or 01/22, family can take her home when ready (2) Hypoxia: Plan: Secondary to COVID-19 pneumonia. As above on 3L, no distress breathing comfortably, would be reasonable to try to discharge on home oxygen in next 1-2 days (3) Urinary symptom or sign: Plan: urinary retention, required straight cath a few times earlier in admission was retaining 300mL today, she requested travis she has gone home with traivs before, can follow up with urology or she says home nursing has pulled recommend d/c home with travis (4) Syncope, vasovagal: Plan: happened on 01/20 when straining to move bowels fully oriented after about 30 seconds no ischemic changes on EKG BMP and CBC and troponin normal she has a long history of this (5) Elevated troponin: Plan: Most likely due to demand ischemia, mild T wave changes Mildly elevated troponin on admission-serial trops came back down Patient denies any chest pain. (6) PAF (paroxysmal atrial fibrillation): Plan: Patient is on Eliquis at home, will continue -is in SB and NSR here Also continue amiodarone (7) Metastatic carcinoid tumor: Plan: Follows up with oncologist every month, currently on treatment with lanreotide (8) Constipation: Plan: cannot tolerate Miralax No bowel movement since 01/10, but then had several on 01/16 continue senna/docusate twice daily -drinking apple juice and prune juice straining today triggered syncopal episode (9) Thrombocytosis: Plan: Platelets now up into the 700s, likely increased due to being acute phase reactant Follow CBC Plan: DVT Proph-ELiquis Dispo-continued stay on tele in COVID unit could be ready for discharge 01/21 or 01/22 go home with travis might need 2 step Admission and Anticipated Discharge Date Admission Date: January 11, 2021 Subjective patient down to 3L today, breathing quite well, no distress at all trying to urinate but she was having retention, she requested a travis catheter, she says she has gone home with travis before, she is okay with that plan again eating well later in morning she was straining to move her bowels, she had a syncopal event while sitting on commode lasted a few seconds, she regained consciousness and was fully oriented BP was low, 70's systolic, laid her down and SBP came up to 120 she says this happens all the time at home I confirmed with her daughter on the phone that she has been having syncope for years discussed that she might be ready to go home in 1-2 days as oxygen requirements are improving Review of Systems Review of Systems: All systems reviewed & are unremarkable except as noted in Subjective Physical Exam Physical Exam: General: well developed, well nourished, no acute distress, comfortable Neck: supple, trachea midline, normal thyroid Lungs: clear to auscultation bilaterally, normal respiratory effort, no accessory muscle use, no distress Heart: regular S1 and S2, no murmur, peripheral pulses normal, capillary refill normal, no edema Abdomen: soft, NT, ND, + BS, no hepatomegaly, normal to percussion Extremities: normal in appearance, no cyanosis, no petechiae, strength is 5/5 bilaterally Neuro: awake, cooperative, moves all extremities, no focal motor deficits, CN II-XII intact, sensation in extremities intact, normal speech Skin: warm, dry, no rash, normal turgor Psych: Awake, alert oriented x 3, euthymic affect Results & Data Results & Data ([facility]) Vital Signs (Past 12 Hours) Vital Signs Temp Pulse Resp BP Pulse Ox 01/20/21 19:17 36.5 C 58 L 18 103/60 99 01/20/21 17:16 56 L 16 132/72 95 01/20/21 13:34 59 L 116/64 94 01/20/21 13:30 58 L 130/75 94 01/20/21 13:15 55 L 16 77/50 L 95 01/20/21 11:45 57 L 16 124/78 4 L Laboratory Results Laboratory Results - last 24 hr 01/20/21 01/20/21 01/20/21 05:38 05:42 05:42 WBC 11.90 H RBC 3.46 L Hgb 10.3 L Hct 31.6 L MCV 91.3 MCH 29.8 MCHC 32.6 RDW Std Deviation 55.0 H RDW Coeff of Myra 16.8 H Plt Count 555 H MPV 10.1 Sodium 137 Potassium 4.5 Chloride 104 Carbon Dioxide 29 Anion Gap 4.0 BUN 27 H Creatinine 1.01 1.02 Est Cr Clr Drug Dosing 39.8 39.4 Est GFR ( Amer) 63.1 62.3 Est GFR (Non-Af Amer) 54.4 53.8 BUN/Creatinine Ratio 26.5 H Glucose 112 H Calcium 7.8 L Troponin I < 0.015 Medications Administered Current Inpatient Medications Acetaminophen (Acetaminophen 325 Mg Tab) 650 mg PO Q4H PRN PRN Reason: Pain or Fever Stop: 02/10/21 17:40 Last Admin: 01/19/21 10:10 Dose: 650 mg Documented by: Albuterol (Albuterol Hfa 8 Gm Inhaler) 2 puffs INH Q4 PRN PRN Reason: Shortness Of Breath Or Wheezing Stop: 02/15/21 11:59 Last Admin: 01/16/21 20:23 Dose: 2 puffs Documented by: Amiodarone HCl (Amiodarone 200 Mg Tab) 200 mg PO QAM [facility] Stop: 02/11/21 08:59 Last Admin: 01/20/21 08:15 Dose: 200 mg Documented by: Apixaban (Apixaban 5 Mg Tablet) 5 mg PO BID [facility] Stop: 02/10/21 20:59 Last Admin: 01/20/21 08:15 Dose: 5 mg Documented by: Benzonatate (Benzonatate 100 Mg Capsule) 100 mg PO TID [facility] Stop: 02/13/21 20:59 Last Admin: 01/20/21 14:43 Dose: Not Given Documented by: Furosemide (Furosemide Inj 20 Mg/2 Ml Vial) 20 mg IV QAM [facility] Stop: 02/19/21 08:59 Last Admin: 01/20/21 08:14 Dose: 20 mg Documented by: Guaifenesin (Guaifenesin 600 Mg Tabcr) 600 mg PO Q12 [facility] Stop: 02/10/21 20:59 Last Admin: 01/20/21 08:14 Dose: 600 mg Documented by: Dexamethasone 6 mg/ Syringe 1.5 mls @ 1 mls/min IV DAILY [facility] Stop: 02/11/21 08:59 Last Admin: 01/20/21 08:14 Dose: 1 mls/min Documented by: Loratadine (Loratadine 10 Mg Tab) 10 mg PO QAM PRN PRN Reason: ALLERGIES Stop: 02/10/21 17:45 Last Admin: 01/18/21 08:59 Dose: 10 mg Documented by: Nitroglycerin (Nitroglycerin Sl 0.4 Mg/Tab Tab) 0.4 mg SL UD PRN PRN Reason: Chest Pain Stop: 02/10/21 20:01 Ondansetron HCl (Ondansetron Inj 2 Mg/Ml 2 Ml Vial) 4 mg IV Q6H PRN PRN Reason: Nausea Stop: 02/10/21 20:01 Last Admin: 01/12/21 23:51 Dose: 4 mg Documented by: Polyethylene Glycol (Polyethylene (Miralax) 17 Gm Pack) 17 gm PO DAILY PRN PRN Reason: Constipation Stop: 02/10/21 20:01 Senna/Docusate Sodium (Docusate Sodium/Senna 50/8.6mg Tab) 1 tab PO BID [facility] Stop: 02/14/21 20:59 Last Admin: 01/20/21 08:14 Dose: 1 tab Documented by: Sodium Chloride (Sodium Chloride 0.65% Na Soln 45 Ml ([place])) 2 sprays NA Q2H PRN PRN Reason: nasal dryness Stop: 02/15/21 18:05 Vitamin D (Cholecalciferol 1,000 Units 25 Mcg Tab) 2,000 units PO QAM [facility] Stop: 02/11/21 08:59 Last Admin: 01/20/21 08:14 Dose: 2,000 units Documented by: PG Care Time/CCT Total # of Minutes Spent Total Time Spent with Patient: Total time spent is greater than 50% in coordination of care (as documented) at patient's floor/unit and/or counseling patient: Coding Level of Care Code 80679 Subseq Hosp Care Lvl 3 Diagnoses 2019 novel coronavirus-infected pneumonia (NCIP) U07.1; J12.82 Hypoxia R09.02 Elevated troponin R77.8 PAF (paroxysmal atrial fibrillation) I48.0 Metastatic carcinoid tumor C7B.00 Urinary symptom or sign R39.9 Constipation K59.00 Thrombocytosis D75.839 Syncope, vasovagal R55
--- NOTE | 2021-01-21 07:27 | Hospitalist Progress Note ---
Date of Service January 21, 2021 Assessment & Plan (1) 2019 novel coronavirus-infected pneumonia (NCIP): Plan: Patient is an unvaccinated female, tested positive for COVID-19 a couple of days prior to admission in an urgent care center. PresentED to the hospital with worsening shortness of breath, found to be hypoxic. Chest x-ray was done which showed evidence of infiltrates. O2 requirements escalateD over the first several days of admission up to 14L Oxymask at rest but now much improved, down to 2L, no distress, can likely titrate further crp trending downward -continue decadron x10-day course, 01/21/21 LD has now completed Remdesevir x5-day course -continue to use/encourage IS and flutter valve -Continue scheduled tessalon perle 3 times daily -continue albuterol HFA did have bowel movement family maybe ready to have home 01/22 (2) Hypoxia: Plan: Secondary to COVID-19 pneumonia. As above on 2L, no distress breathing comfortably, would be reasonable to try to discharge on home oxygen in next 1-2 days (3) Urinary symptom or sign: Plan: urinary retention, required straight cath a few times earlier in admission was retaining 300mL today, she requested travis she has gone home with travis before, can follow up with urology or she says home nursing has pulled recommend d/c home with travis (4) Syncope, vasovagal: Plan: happened on 01/20 when straining to move bowels fully oriented after about 30 seconds no ischemic changes on EKG BMP and CBC and troponin normal she has a long history of this (5) Elevated troponin: Plan: Most likely due to demand ischemia, mild T wave changes Mildly elevated troponin on admission-serial trops came back down Patient denies any chest pain. (6) PAF (paroxysmal atrial fibrillation): Plan: Patient is on Eliquis at home, will continue -is in SB and NSR here Also continue amiodarone (7) Metastatic carcinoid tumor: Plan: Follows up with oncologist every month, currently on treatment with lanreotide (8) Constipation: Plan: cannot tolerate Miralax No bowel movement since 01/10, but then had several on 01/16 continue senna/docusate twice daily -drinking apple juice and prune juice straining today triggered syncopal episode (9) Thrombocytosis: Plan: Platelets now up into the 700s, likely increased due to being acute phase reactant Follow CBC Plan: DVT Proph-ELiquis Dispo-continued stay on tele in COVID unit could be ready for discharge 01/21 or 01/22 go home with travis might need 2 step Admission and Anticipated Discharge Date Admission Date: January 11, 2021 Subjective pt is improving but not yet ready to go home yet, did have bowel movement but family is not ready to have home Review of Systems Review of Systems: Mild distress and moderate fatigue no headache, no visual changes no speech or swallowing issues no chest pain, pressure or palpitations Still has some shortness of breath, nonproductive cough no abdominal pain, nausea or vomiting, resolved constipation no dysuria, hematuria or frequency no focal joint pain or swelling no back pain, CVA tenderness or radicular pain no bruising, bleeding or rashes no focal signs of weakness or numbness or altered sensation globally weakened no complaints of anxiety or depression.. Physical Exam Physical Exam: The patient appeared chronically ill and debilitated Vital signs as documented. Head exam is normocephalic atraumatic Neck is without JVD, thyromegaly, or carotid bruits. Lungs coarse rales bilaterally, no focal loss of breath sounds Cardiac exam, Rhythm is regular.. No murmurs, rubs or gallops. Abdominal exam reveals normal bowel sounds, soft non tender, no masses Extremities are nonedematous and both pedal pulses are present Neurologic exam is alert and oriented, no focal loss of strength or sensation Skin is without bruises or rashes Psychologically is without concerns for anxiety or depression.. Results & Data Results & Data ([facility]) Vital Signs (Past 12 Hours) Vital Signs Temp Pulse Pulse Resp BP Pulse Ox 01/21/21 07:07 97.9 F 53 L 19 145/80 H 95 01/21/21 03:27 98.4 F 48 L 18 120/58 L 96 01/20/21 23:03 97.7 F 51 L 19 114/67 97 01/20/21 23:00 54 L PG Care Time/CCT Total # of Minutes Spent Total Time Spent with Patient: Total time spent is greater than 50% in coordination of care (as documented) at patient's floor/unit and/or counseling patient: Coding Level of Care Code 54208 Subseq Hosp Care Lvl 2 Diagnoses 2019 novel coronavirus-infected pneumonia (NCIP) U07.1; J12.82 Hypoxia R09.02 Urinary symptom or sign R39.9 Syncope, vasovagal R55 Elevated troponin R77.8 PAF (paroxysmal atrial fibrillation) I48.0 Metastatic carcinoid tumor C7B.00 Constipation K59.00 Thrombocytosis D75.839
[2021-01-21] MEDS: BENZONATATE 100 MG CAPSULE PO SCH ×3 (09:21→21:19)
[2021-01-21] MEDS: DOCUSATE SODIUM/SENNA 50/8.6MG TAB PO SCH ×2 (09:21→21:22)
[2021-01-21] MEDS: guaiFENesin 600 MG TABCR PO SCH ×2 (09:21→21:19)
[2021-01-21] MEDS: FUROSEMIDE INJ 20 MG/2 ML VIAL IV SCH (09:21)
[2021-01-21] MEDS: APIXABAN 5 MG TABLET PO SCH ×2 (09:22→21:22)
[2021-01-21] MEDS: AMIODARONE 200 MG TAB PO SCH (09:22)
[2021-01-21] MEDS: LORATADINE 10 MG TAB PO PRN (09:22)
[2021-01-21] MEDS: CHOLECALCIFEROL 1,000 UNITS 25 MCG TAB PO SCH (09:22)
[2021-01-21] MEDS: dexAMETHasone 6 MG in SYRINGE 0 ML IV SCH (09:22)
[2021-01-21] MEDS ORDERED: bisacodyL 10 MG SUPP PR STA (11:15)
--- NOTE | 2021-01-21 22:44 | Electrocardiogram Report ---
Test Reason : Blood Pressure : / mmHG Vent. Rate : 052 BPM Atrial Rate : 052 BPM P-R Int : 168 ms QRS Dur : 114 ms QT Int : 472 ms P-R-T Axes : 081 -01 028 degrees QTc Int : 438 ms Sinus bradycardia T wave abnormality, consider anterolateral ischemia Abnormal ECG When compared with ECG of 11-JAN-2021 15:17, No significant change was found Confirmed by Nikko Bethea ([id number] on 01/21/2021 10:44:10 PM Referred By: REFERRED SELF Confirmed By:Nikko Bethea
[2021-01-22] MEDS: BENZONATATE 100 MG CAPSULE PO SCH ×2 (08:38→14:20)
[2021-01-22] MEDS: CHOLECALCIFEROL 1,000 UNITS 25 MCG TAB PO SCH (08:38)
[2021-01-22] MEDS: dexAMETHasone 6 MG in SYRINGE 0 ML IV SCH (08:38)
[2021-01-22] MEDS: guaiFENesin 600 MG TABCR PO SCH (08:39)
[2021-01-22] MEDS: DOCUSATE SODIUM/SENNA 50/8.6MG TAB PO SCH (08:39)
[2021-01-22] MEDS: AMIODARONE 200 MG TAB PO SCH (08:39)
[2021-01-22] MEDS: APIXABAN 5 MG TABLET PO SCH (08:39)
[2021-01-22] MEDS: FUROSEMIDE INJ 20 MG/2 ML VIAL IV SCH (08:40)
[2021-01-22] MEDS: ACETAMINOPHEN 325 MG TAB PO PRN (10:36)
--- NOTE | 2021-01-22 13:07 | Discharge Summary ---
Date of Service January 22, 2021 Admission HPI Per Admitting Provider This is a 75-year-old female with a history of carcinoid cancer, hypertension, atrial fibrillation on Eliquis, who presents to the emergency department today on account of worsening shortness of breath. Patient tested positive for COVID- 19 couple of days ago at a local urgent care center. Prior to that, she has been having poor appetite generalized weakness so at the insistence of her daughter they both tested positive for COVID-19. EMS was called and they brought the patient to the hospital, she was saturating in the 80s. Of note, patient did not get COVID-19 vaccine. Here in emergency department, CBC and BMP were done WBC was within normal limits BMP was essentially within normal limits apart from a serum potassium of 3.3 and a serum calcium of 7.8. Troponin was 0.05 and CRP was elevated. EKG showed some minor T wave changes but no ST elevation. Chest x-ray was done which showed faint airspace opacities in the left lower lung. She was started on Decadron and remdesivir and will be admitted to the hospital for the management. Principal Diagnosis acute hypoxic respiratory failure covid pneumonia constipation Discharge Exam The patient appeared chronically ill Vital signs as documented. Lungs are diminshed but improving Cardiac exam, Rhythm is regular.. No murmurs, rubs or gallops. Abdominal exam reveals normal bowel sounds, soft non tender, no masses Extremities are nonedematous and both pedal pulses are normal. Neurologic exam is alert and oriented,she is physically weak Skin is without bruises or rashes Psychologically is without concerns for anxiety or depression. Discharge Data Allergies Allergy/AdvReac Type Severity Reaction Status Date / Time nut - unspecified Allergy Severe throat Verified 01/11/21 15:42 swelling aspirin Allergy Intermediate "ASTHMA" Verified 01/11/21 15:42 celecoxib Allergy Intermediate "ASTHMA Verified 01/11/21 15:42 ATTACK" codeine Allergy Intermediate "FACE Verified 01/11/21 15:42 PUFFS UP" morphine Allergy Intermediate "FACE Verified 01/11/21 15:42 PUFFS UP" latex Allergy Mild RASH Verified 01/11/21 15:42 caffeine AdvReac Intermediate HEADACHE Verified 01/11/21 15:42 midazolam AdvReac Intermediate extreme Verified 01/11/21 15:42 anxiety fentanyl AdvReac Mild DELIRIUM Verified 01/11/21 15:42 lorazepam AdvReac Mild ANXIOUS Verified 01/11/21 15:42 Consultations 01/11/21 17:41 ED Decision to Admit Stat Ordered Studies 01/11/21 15:59 CT chest diagnostic wo con Stat CT head/brain wo con Stat Hospital Course (1) 2018 novel coronavirus-infected pneumonia (NCIP): Patient is an unvaccinated female, tested positive for COVID-19 a couple of days prior to admission in an urgent care center. PresentED to the hospital with worsening shortness of breath, found to be hypoxic. Chest x-ray was done which showed evidence of infiltrates. O2 requirements escalated over the first several days of admission up to 14L Oxymask at rest but now much improved, down to 2L, she will need this at time of discharge crp trending downward -continue decadron x10-day course, 01/21/21 LD has now completed Remdesevir x5-day course -continue albuterol HFA did have bowel movement family maybe ready to have home 01/22 (2) Hypoxia: Secondary to COVID-19 pneumonia. As above on 2L, no distress breathing comfortably, discharge on home oxygen 2L nc (3) Urinary symptom or sign: urinary retention, required straight cath a few times earlier in admission was retaining 300mL today, she requested travis she has gone home with travis before, can follow up with urology or she says home nursing has pulled recommend d/c home with travis (4) Syncope, vasovagal: happened on 01/20 when straining to move bowels fully oriented after about 30 seconds no ischemic changes on EKG BMP and CBC and troponin normal she has a long history of this (5) Elevated troponin: Most likely due to demand ischemia, mild T wave changes Mildly elevated troponin on admission-serial trops came back down Patient denies any chest pain. (6) PAF (paroxysmal atrial fibrillation): Patient is on Eliquis at home, will continue -is in SB and NSR here Also continue amiodarone (7) Metastatic carcinoid tumor: Follows up with oncologist every month, currently on treatment with lanreotide (8) Constipation: cannot tolerate Miralax No bowel movement since 01/10, but then had several on 01/16 continue senna/docusate twice daily -drinking apple juice and prune juice straining today triggered syncopal episode (9) Thrombocytosis: Platelets now up into the 700s, likely increased due to being acute phase reactant Follow CBC home with oxygen and travis catheter Total Time Total Time Spent Total Time Spent (In Minutes): It required greater than 30 minutes to prepare this patient for discharge Discharge Plan Discharge Items Patient Disposition: Home - Home Health Services Reason For Visit: COVID PNA Discharge Diagnosis: pneumonia secondary to covid virus infection retained urine with need to keep catheter at home constipation resolved Activity: Per Instructions section Activity Comment: as you are in need of extra oxygen slowly increase physical actiity Non-emergency contact: Primary Care Provider and Urologist Call non-emergency contact if: your symptoms worsen Follow-up/Referrals: Vicenta Gilbert, [Primary Care Provider] - Diet: Regular Addtl Attending Provider Instructions: please wear oxygen at all times and call your primary care doctor and urologist to make follow up appointments please keep away from others who have not had the covid infection unless you have had not respiratory symptoms for 2 days in a row consider wearing a mask around others if you cannot avoid being with other people your family doctor will be in charge of helping decide when you may not need the supplemental oxygen in the future rest, eat well and hydrate you may be eligible for the covid vaccine to help boost your immunity, you may receive the Vaccine any time after, February 08 2021 as long as you are feeling well Addtl Floor Person Provider Instructions: you should go home with travis catheter and leg bag. This information will help you care for your urinary (Travis) catheter while youre at home. Your urinary catheter is a thin, flexible tube placed in your bladder to drain your urine (pee). Its held inside your bladder by a balloon filled with water. Catheter Care To take care of your catheter, youll need to do the following: * Clean your catheter. * Change your drainage bags. * Wash your drainage bags every day. * Drink 1 to 2 glasses of liquids every 2 hours while youre awake. You may see some blood or urine around where the catheter enters your body. This may happen when youre walking or having a bowel movement (pooping). This is normal, as long as theres urine draining into the drainage bag. If you dont have urine draining into the drainage bag, call your healthcare provider. Showering * You can shower while you have your catheter in place. Dont take a bath until your catheter is removed. This is because taking a bath while you have your catheter puts you at risk for infections. * Make sure you always shower with your night bag. Dont shower with your leg bag. You may find it easier to shower in the morning Cleaning Your Catheter You can clean your catheter while youre in the shower. * Gather your supplies. Youll need: * Mild soap, such as Dove * Water * Wash your hands well with soap and warm water or use an alcohol-based hand mobile home technician. * If youre washing your hands with soap and water, wet your hands, apply soap, rub them together well for at least 20 seconds, then rinse. Dry your hands with a paper towel and use that same towel to turn off the faucet. * If youre using an alcohol-based hand mobile home technician, be sure to cover your hands with it, rubbing them together until theyre dry. * Using mild soap and water, clean your genital area. * If you have a vagina, separate your labia. Clean the area from front to back. * Clean your urethra (urinary opening), which is where the catheter enters your body. * Clean the catheter from where it enters your body and then down, away from your body. Hold the catheter at the point it enters your body so that you dont put tension on it. * Rinse the area well and dry it gently. Changing Your Drainage Bag Youll change your drainage bag 2 times a day: * In the morning after you shower, change the night bag to the leg bag. * At night before you go to bed, change the leg bag to the night bag. * Gather your supplies. Youll need: * A clean washcloth (not one already used for bathing) or a 4x 4 piece of gauze * Night or leg drainage bag (whichever one you are switching to) * 2 alcohol pads * Wash your hands well with soap and warm water or use an alcohol-based hand mobile home technician. * If youre washing your hands with soap and water, wet your hands, apply soap, rub them together well for at least 20 seconds, then rinse. Dry your hands with a paper towel and use that same towel to turn off the faucet. * If youre using an alcohol-based hand mobile home technician, be sure to cover your hands with it, rubbing them together until theyre dry. * Empty the urine from the drainage bag into the toilet. Make sure the spout of the drainage bag never touches the side of the toilet or any emptying container. * Place the clean cloth or gauze under the connector to catch any leakage. * Pinch off the catheter with your fingers and disconnect the used bag. * Wipe the end of the catheter with an alcohol pad. * Wipe the connector on the new bag with the second alcohol pad. * Connect the clean bag to the catheter and release your finger pinch. * Check all connections. Straighten any kinks or twists in the tubing. You may also find it helpful to watch the video below that shows you how to change your drainage bags Caring for Your Drainage Bags Caring for your leg bag * The tubing from your leg bag should fit down to your calf with your leg slightly bent. If you have extra tubing, you may need to cut it. Your nurse will show you how to do this. * Always wear the leg bag below your knee. This will help it drain. * Place the leg bag on your calf using the Velcrostraps your nurse gave you. Use a leg strap to secure the tubing to your thigh. * If the straps leave a denilson on your leg, they are too tight. Loosen them. Leaving the straps too tight can decrease your blood flow and cause blood clots. * Empty the leg bag into the toilet every 2 to 4 hours, as needed. You can do this through the spout at the bottom. Dont let the bag become completely full. * Dont lie down for longer than 2 hours while youre wearing the leg bag. Caring for your night bag * Always keep the night bag below the level of your bladder. * To hang your night bag while you sleep, place a clean plastic bag inside of a wastebasket. Hang the night bag on the inside of the wastebasket. Cleaning the drainage bags * Gather your supplies. Youll need: * White vinegar * Cool water * Wash your hands well with soap and warm water or use an alcohol-based hand mobile home technician. * If youre washing your hands with soap and water, wet your hands, apply soap, rub them together well for at least 20 seconds, then rinse. Dry your hands with a paper towel and use that same towel to turn off the faucet. * If youre using an alcohol-based hand mobile home technician, be sure to cover your hands with it, rubbing them together until theyre dry. * Rinse the bag with cool water. Dont use hot water because it can damage the plastic equipment. * To help reduce the smell, fill the bag retirement with a mixture of 1 part white vinegar and 3 parts water. Shake the bag and let it sit for 15 minutes. * Rinse the bag with cool water. Hang it up to dry Preventing Infections Follow these guidelines to prevent getting infections while you have your catheter in place: * Keep the drainage bag below the level of your bladder. * Keep your drainage bag off the floor at all times. * Keep the catheter secured to your thigh to keep it from moving. * Dont lie on your catheter or block the flow of urine in the tubing. * Shower daily to keep the catheter clean. * Wash your hands before and after touching the catheter or bag When to Call Your Healthcare Provider Call your healthcare provider right away if: * Your catheter comes out. Dont try to replace it yourself. * You have a fever of 101F (38.3 C) or higher. * Youre making less urine than usual. * You dont have urine draining into your drainage bag. * Your urine smells bad. * You have bright red blood or large blood clots in your urine. * You have abdominal (belly) pain and no urine in your catheter bag. Pending Studies at Discharge: No Stand-Alone Forms: My [facility], Smoking Cessation Medications and DC Order Prescriptions: New (DME) Oxygen Home Liters Per Minute See Rx Instructions .Route Qty: 1 RF: 0 Continued (DME) lancets [Accu-Chek [facility]clix Lancets] [facility] See Rx Instructions .ROUTE .MEDSUPPLY Qty: 100 RF: 2 Eliquis 5 mg tablet 5 mg PO BID Qty: 60 RF: 2 albuterol sulfate 90 mcg/actuation HFA aerosol inhaler 1 puff inhalation QID PRN (Reason: shortness of breath or wheezing) Qty: 6.7 RF: 0 prednisone 10 mg tablet See Rx Instructions PO DAILY Qty: 20 RF: 0 amiodarone 200 mg tablet 200 mg PO QAM RF: 0 Somatuline Dep[place] 120 mg/0.5 mL syringe 0 mg SQ Q4WK RF: 0 cholecalciferol (vitamin D3) [Vitamin D3] 2,000 unit Capsule 2,000 units PO QAM RF: 0 acetaminophen [Tylenol Extra Strength] 500 mg Tablet 1,000 mg PO AMHS RF: 0 loratadine [Claritin] 10 mg Tablet 10 mg PO QAM PRN (Reason: ALLERGIES) RF: 0 Discharge Orders: Discharge Order (Routine); Ordered 01/22/21 Ordered By: Rufino Garcia Admission Data Admit Date/Time: 01/11/21 17:41 Attending Provider: Rufino Garcia Admit Provider: Nola Arnold Primary Care Provider: Vicenta Gilbert Other Providers: Nola Arnold ; Bob Paez [facility] Coding Level of Care Code D/C DAY MANAGEMENT >30 MINS Diagnoses 2019 novel coronavirus-infected pneumonia (NCIP) U07.1; J12.82 Hypoxia R09.02 Urinary symptom or sign R39.9 Syncope, vasovagal R55 Elevated troponin R77.8 PAF (paroxysmal atrial fibrillation) I48.0 Metastatic carcinoid tumor C7B.00 Constipation K59.00 Thrombocytosis D75.839 Home Health Attestation I certify that this patient is under my care and that I, or a physicians lead dental assistant working with me, had a face to-face encounter that meets the home health [id number] encounter requirements with this patient. The encounter with the patient was in whole, or in part, for the following medical condition, which is the primary reason for home health care (list medical condition): Covid I certify that, based on my findings, the following services are medically necessary home health services: My clinical findings support the need for the above services because: PT Assessment for Endurance / Balance / Strength PT Eval for Safety and Mobility PT Eval for Safety, Gait Training, Assistive Devices PT Gait and Balance Training, Strengthening and Safety Skilled Nsg Assessment Further, I certify that my clinical findings support that this patient is homebound (i.e. absences from home require considerable and taxing effort and are for medical reasons or mosque services or infrequently or of short duration when for other reasons) because: Supportive Aid - Walker Certification for Home Health Services: Based on the above findings, I certify that this patient is confined to the home and needs intermittent senior living care, physical therapy and/or speech therapy or continues to need occupational therapy. The patient is under my care, and I have initiated the establishment of the plan of care. This patient will be followed by a physician who will periodically review the plan of care.
== END 2021-01-22 17:55 | disposition home health service (06) | DRG 177 ==
LOC: ED 15:10 → 2E 17:41 → SUATTDRO 17:41 → 2E 18:45
DX: R55 Syncope and collapse; C7B.00 Secondary carcinoid tumors, unspecified site; K59.00 Constipation, unspecified; Z79.01 Long term (current) use of anticoagulants; Z90.49 Acquired absence of other specified parts of digestive tract; I48.0 Paroxysmal atrial fibrillation; J12.82 Pneumonia due to coronavirus disease 2019; Z82.49 Family history of ischemic heart disease and other diseases of the circulatory system; D75.839 Thrombocytosis, unspecified; R39.9 Unspecified symptoms and signs involving the genitourinary system; I10 Essential (primary) hypertension; E78.5 Hyperlipidemia, unspecified; K21.9 Gastro-esophageal reflux disease without esophagitis; I24.8 Other forms of acute ischemic heart disease; Z88.5 Allergy status to narcotic agent; Z83.3 Family history of diabetes mellitus; Z88.6 Allergy status to analgesic agent; U07.1 COVID-19

== ENCOUNTER 2021-06-16 15:49 | Inpatient (IN) ==
[2021-06-16] MEDS ORDERED: SODIUM CHLORIDE 0.9% 1000ML 1,000 ML IV ONE (16:04)
[2021-06-16] MEDS ORDERED: ONDANSETRON INJ 2 MG/ML 2 ML VIAL IV STA (16:04)
[2021-06-16] MEDS ORDERED: ACETAMINOPHEN 500 MG TAB PO STA (16:07)
[2021-06-16] MEDS ORDERED: cefTRIAXone SODIUM 1,000 MG/50 ML BAG IV STA (16:08)
--- NOTE | 2021-06-16 16:28 | Emergency Department Note ---
Impression & Plan Non-STEMI (non-ST elevated myocardial infarction), LBBB (left bundle branch block), Elevated troponin I level, Nausea vomiting and diarrhea, Urinary tract infection, Fever, Anemia ED Provider Note NAME: TRACY CARDENAS AGE: 76 SEX: F : 1945 ARRIVES VIA: Ambulance INFORMANT: Patient, the patient's family member ED PROVIDER(S): Cristobal Magallanes DO CHIEF COMPLAINT: Vomiting HPI: The patient is a 76-year-old female who presented to the emergency department by ambulance for an evaluation of nausea vomiting and diarrhea. The patient's had symptoms for the last few days. She does take blood thinners for history of atrial fibrillation. She denies having any hematemesis but she has had some episodes of bloody bowel movements. She did not see her family doctor for the symptoms. She has been getting worse and her family called 911 and the patient arrived via ambulance. She was found to have a fever upon arrival but she states she did not know she had a fever. She states she has noticed some urinary frequency. She denies having any chest pain. She does have a history of chronic oxygen use and states she feels better with her supplemental oxygen. She denies having any lower extremity swelling. She denies having any trauma. The patient states there is been some family members that have had the stomach flu with similar symptoms including nausea vomiting and diarrhea. The patient states she has had such severe weakness she could not come by private vehicle which is why her family called 911. ROS: See above HPI for pertinent positives & negatives. A total of 10 systems reviewed and were otherwise negative. PAST MEDICAL HISTORY: See Below PAST SURGICAL HISTORY: See Below FAMILY HISTORY: See Below SOCIAL HISTORY: See Below HOME MEDICATIONS: See Below ALLERGIES: See Below VITALS: See Below PHYSICAL EXAMINATION: GENERAL: Patient is awake alert in no acute distress patient is resting comfortably and showing no signs of anxiety EYES: The conjunctivae are clear. The pupils are round and reactive. EARS, NOSE, MOUTH AND THROAT: The nose is without any evidence of any deformity. Mucous membranes are dry. NECK: The neck is nontender and supple. RESPIRATORY: Normal respiratory effort is noted there is no evidence of wheezing rhonchi or rales CARDIOVASCULAR: Regular rate and rhythm was noted. Systolic murmur was noted. Rectal exam revealed brown stool which was heme positive. GASTROINTESTINAL: The abdomen is mildly distended and diffusely tender. No specific guarding or rigidity was noted. MUSCULOSKELETAL/EXTREMITIES: There is no evidence of gross deformity full range of motion is noted in the hips and shoulders. SKIN: Skin is warm and dry. Trace pedal edema is noted bilaterally. NEUROLOGIC: Patient is awake alert and oriented x3. Strength is diminished but symmetric. MEDICAL DECISION MAKING: The patient is a 76-year-old female who presented to the emergency department by ambulance for an evaluation of generalized weakness. The patient was experiencing generalized weakness as well as fever when she arrived. She states that she had dysuria and frequency. The patient had a septic work-up in the [facility]. She was treated with IV fluids and IV antibiotics. Ultimately she was found to have an EKG that did show a new left bundle and her troponin was elevated significantly. The patient did have some reported rectal bleeding and her stool was brown but heme positive. I will defer any anticoagulation to the admitting team. I discussed patient's laboratory and radiographic studies with her and her family member. I also discussed her case with the on-call [facility]. They have agreed to evaluate the patient in the emergency department for further management and disposition. Triage Nursing notes reviewed. Prior medical records reviewed Vital Signs: reviewed and remarkable for elevated blood pressure. Differential diagnosis: Viral syndrome, otitis, pharyngitis, pneumonia, influenza, meningitis, urinary tract infection, sepsis, bacteremia, as well as other pathologies. ER treatment provided: See below Diagnostics interpreted by me: ECG: EKG was obtained in the emergency department. My interpretation is normal sinus rhythm at 70 bpm. There were no PVCs noted. Left bundle wrench block pattern was suggested. Diffuse ST segment abnormalities were appreciated. LVH was suggested by voltage criteria. This was compared to a tracing from January 20, 2021. The bundle branch block is new compared to the previous tracing. Cardiac Monitoring: An order was placed for continuous cardiac monitoring. The monitor shows a rate of 74 bpm with sinus rhythm. Laboratory studies: As stated above and show below. Imaging studies: See below Consultation(s): I discussed this case with Dr. Owens. He was on-call for the [facility] group. He will evaluate the patient in the emergency department. ED COURSE: Procedures: none PDMP:reviewed and no issues Critical Care: I have personally spent greater than 40 minutes of critical care time in the direct management of this patient. This includes bedside care, interpretation of diagnostic studies, and testing, discussion with consultants, patient, and family members, and other required patient management activities. This 40 minutes is in excess of all separately billable procedures. Past Med/Surg History Medical History 2019 novel coronavirus-infected pneumonia (NCIP) (12/2020) Anal fistula Asthma NO INHALER Atrial fibrillation Coronary vasospasm Elevated alkaline phosphatase level Food allergy, peanut GERD (gastroesophageal reflux disease) Hyperlipidemia Hypertension Liver cancer Metastatic carcinoid tumor (2016) NSTEMI (non-ST elevated myocardial infarction) Osteoarthritis Partial bowel obstruction Prediabetes Proctocolitis Recurrent syncope Sustained ventricular tachycardia Thoracic ascending aortic aneurysm Wide-complex tachycardia Surgical History History of cardiac cath [facility] 2015; "Normal coronary arteries." History of dilatation and curettage History of liver biopsy History of tonsillectomy and adenoidectomy History of tooth extraction S/P appendectomy S/P cholecystectomy S/P total hysterectomy and bilateral salpingo-oophorectomy Family History Sister Family history of diabetes mellitus Myocardial infarction Father Myocardial infarction, Onset Age: 49 Brother CHF (congestive heart failure) Mother Lung cancer Denies family history of Ovarian cancer Prostate cancer Breast cancer Colorectal cancer Social History Smoking Status: Never smoker Second Hand Exposure: No; Hx Alcohol Use: No Hx Substance Use: No Preferred Language: Jordanian Communication Ability: Effective Visual Impairment: Limited Hearing Ability: Normal Leadlighter Required: No Beliefs That Will Affect Care: None marital status: Current Living Situation: Spouse and Family Current Living Situation Comment: spouse, daughter and her family current occupational status: retired 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 Feels Safe at Home: Yes Childhood Exposure to Second-Hand Smoke: No caffeine: Yes (occasional soda) during the past year weight has: remained stable Dental Care, Regularly: No Physical Activity Frequency: Daily Seatbelt Use: always Sunscreen Use: Yes Assistive Devices: None Allergies Allergies Allergy/AdvReac Type Severity Reaction Status Date / Time nut - unspecified Allergy Severe throat Verified 06/16/21 16:39 swelling aspirin Allergy Intermediate "ASTHMA" Verified 06/16/21 16:39 celecoxib Allergy Intermediate "ASTHMA Verified 06/16/21 16:39 ATTACK" codeine Allergy Intermediate "FACE Verified 06/16/21 16:39 PUFFS UP" morphine Allergy Intermediate "FACE Verified 06/16/21 16:39 PUFFS UP" latex Allergy Mild RASH Verified 06/16/21 16:39 caffeine AdvReac Intermediate HEADACHE Verified 06/16/21 16:39 midazolam AdvReac Intermediate extreme Verified 06/16/21 16:39 anxiety fentanyl AdvReac Mild DELIRIUM Verified 06/16/21 16:39 lorazepam AdvReac Mild ANXIOUS Verified 06/16/21 16:39 Home Meds Home Medications Medication Instructions Recorded Confirmed cholecalciferol (vitamin D3) 50 2,000 units PO QAM 04/09/18 06/16/21 mcg (2,000 unit) capsule (Vitamin D3) lanreotide 120 mg/0.5 mL 0 mg SQ Q4WK ml 12/13/18 06/16/21 subcutaneous syringe (Somatuline Depot) acetaminophen 500 mg tablet 1,000 mg PO AMHS 09/06/19 06/16/21 (Tylenol Extra Strength) amiodarone 200 mg tablet 200 mg PO QAM 10/06/20 06/16/21 Oxygen Home ea 02/12/21 03/03/21 Previous Rx's Medication Instructions Recorded apixaban 5 mg tablet (Eliquis) 5 mg PO BID #60 tab 06/16/20 lancets (Accu-Chek Softclix #100 ea 06/17/20 Lancets) albuterol sulfate 90 mcg/actuation 1 puff INHALATION QID PRN #6.7 g 12/23/20 aerosol inhaler ondansetron HCl 8 mg tablet 8 mg PO Q8H PRN #20 tab 05/28/21 Results & Data (ED) Vital Signs Vital Signs - 24 hr 06/16/21 15:57 06/16/21 15:59 06/16/21 16:00 Temperature 39.1 C H Temperature Source Oral Pulse Rate 87 90 88 Pulse Rate [Apical] Pulse Rate from SpO2 Sensor 88 87 Pulse Rhythm Regular Pulse Rhythm [Apical] Pulse Strength Normal Respiratory Rate 24 20 23 Respiratory Effort / Characteristics Non-Labored Respiratory Depth Normal Respiratory Pattern Regular Blood Pressure 112/65 107/62 107/62 Blood Pressure [Left Arm] Blood Pressure Mean 80 77 77 Blood Pressure Mean [Left Arm] Blood Pressure Position [Left Arm] Pulse Oximetry 96 94 Oxygen Delivery Method Nasal Cannula Oxygen Flow Rate 2 Sepsis Recent Fever Within 48 Hours Yes Sepsis New/Unexplained Change in Mental Status N/A Sepsis Action Taken by Nursing No Action Required 06/16/21 16:30 06/16/21 16:47 06/16/21 16:54 Temperature Temperature Source Pulse Rate 73 75 69 Pulse Rate [Apical] Pulse Rate from SpO2 Sensor 73 69 Pulse Rhythm Regular Pulse Rhythm [Apical] Pulse Strength Respiratory Rate 19 16 20 Respiratory Effort / Characteristics Non-Labored Respiratory Depth Respiratory Pattern Blood Pressure 115/55 L Blood Pressure [Left Arm] Blood Pressure Mean 75 Blood Pressure Mean [Left Arm] Blood Pressure Position [Left Arm] Pulse Oximetry 94 95 93 Oxygen Delivery Method Nasal Cannula Oxygen Flow Rate 2 Sepsis Recent Fever Within 48 Hours Sepsis New/Unexplained Change in Mental Status Sepsis Action Taken by Nursing 06/16/21 17:00 06/16/21 17:09 06/16/21 17:10 Temperature 37.4 C Temperature Source Oral Pulse Rate 66 Pulse Rate [Apical] 72 Pulse Rate from SpO2 Sensor 66 Pulse Rhythm Pulse Rhythm [Apical] Regular Pulse Strength Respiratory Rate 8 L 16 16 Respiratory Effort / Characteristics Non-Labored Spontaneous Non-Labored Respiratory Depth Normal Respiratory Pattern Blood Pressure 112/53 L Blood Pressure [Left Arm] 112/53 L Blood Pressure Mean 72 Blood Pressure Mean [Left Arm] 72 Blood Pressure Position [Left Arm] Pulse Oximetry 93 95 93 Oxygen Delivery Method Nasal Cannula Nasal Cannula Oxygen Flow Rate 2 2 Sepsis Recent Fever Within 48 Hours Sepsis New/Unexplained Change in Mental Status Sepsis Action Taken by Nursing 06/16/21 19:00 Temperature 36.8 C Temperature Source Oral Pulse Rate Pulse Rate [Apical] 90 Pulse Rate from SpO2 Sensor Pulse Rhythm Pulse Rhythm [Apical] Pulse Strength Respiratory Rate 24 Respiratory Effort / Characteristics Spontaneous Respiratory Depth Normal Respiratory Pattern Regular Blood Pressure Blood Pressure [Left Arm] 169/85 H Blood Pressure Mean Blood Pressure Mean [Left Arm] 113 Blood Pressure Position [Left Arm] Lying Pulse Oximetry 94 Oxygen Delivery Method Nasal Cannula Oxygen Flow Rate 2 Sepsis Recent Fever Within 48 Hours Sepsis New/Unexplained Change in Mental Status Sepsis Action Taken by [facility] Medications Current Medication List: was personally reviewed by wi Laboratory Data Attestation: I reviewed the patient's lab results. Result diagrams: 06/16/21 16:53 06/16/21 16:53 Lab Results 06/16/21 06/16/21 06/16/21 Range/Units 16:51 16:53 16:53 WBC 11.95 H (4.8-10.8) K/uL RBC 3.20 L (4.2-5.4) M/uL Hgb 9.2 L (12.0-16.0) g/dL Hct 28.5 L (37-47) % MCV 89.1 (80-100) fL MCH 28.8 (25-34) pg MCHC 32.3 (32-36) g/dL RDW Std Deviation 60.3 H (36.4-46.3) fL RDW Coeff of Myra 18.6 H (11.5-14.5) % Plt Count 260 (130-400) K/uL MPV 10.5 H (7.4-10.4) fL Immature Gran % (Auto) 0.5 % Neut % (Auto) 86.6 % Lymph % (Auto) 3.7 % Ellis % (Auto) 9.0 % Eos % (Auto) 0.1 % Baso % (Auto) 0.1 % Neut # (Auto) 10.36 H (1.4-6.5) K/uL Lymph # (Auto) 0.44 L (1.2-3.4) K/uL Ellis # (Auto) 1.07 H (0.11-0.59) K/uL Eos # (Auto) 0.01 (0-0.5) K/uL Baso # (Auto) 0.01 (0-0.2) K/uL Immature Gran # (Auto) 0.06 H (0.00-0.02) K/uL PT 13.2 H (9.0-12.0) Seconds INR 1.3 H (0.9-1.1) APTT 33.4 H (21.0-31.0) Seconds PTT Ratio 1.2 VBG pH (7.36-7.41) VBG pCO2 (38-50) mmHg VBG pO2 mmHg VBG HCO3 mmol/L VBG O2 Saturation % VBG Base Excess mEq/L Barometric Pressure mm/Hg Sodium (136-145) mmol/L Potassium (3.5-5.1) mmol/L Chloride (98-107) mmol/L Carbon Dioxide (21-32) mmol/L Anion Gap (3-11) BUN (6-23) mg/dl Creatinine (0.6-1.2) mg/dl Est Cr Clr Drug Dosing ml/min Est GFR ( Amer) ml/min Est GFR (Non-Af Amer) ml/min BUN/Creatinine Ratio (10-20) Glucose (70-99(Fasting)) mg/dl Lactate (0.4-2.0) mmol/L Calcium (8.5-10.1) mg/dl Magnesium (1.7-2.4) mg/dl Total Bilirubin (0.2-1.0) mg/dl AST (13-39) U/L ALT (7-52) U/L Alkaline Phosphatase (34-104) U/L Troponin I High Sens (0-14) pg/ml Total Protein (6.0-8.3) gm/dl Albumin (3.4-5.0) gm/dl Globulin (2.5-4.0) gm/dl Albumin/Globulin Ratio (0.9-2) Procalcitonin (0-0.5) ng/ml Urine Color Urine Appearance (Clear) Urine pH (4.5-7.5) Ur Specific [place] (1.000-1.030) Urine Protein (Negative) Urine Glucose (UA) (Negative) Urine Ketones (Negative) Urine Blood (Negative) Urine Nitrite (Negative) Urine Bilirubin (Negative) Urine Urobilinogen (Negative) Ur Leukocyte Esterase (Negative) Urine WBC (Auto) (0-5) /hpf Urine RBC (Auto) (0-4) /hpf U Hyaline Cast (Auto) (0-5) /lpf U Epithel Cells (Auto) (0-5) /lpf Urine Bacteria (Auto) (Negative) SARS-CoV-2, RNA, NAAT NEGATIVE (NEGATIVE) 06/16/21 06/16/21 06/16/21 Range/Units 16:53 16:53 16:53 WBC (4.8-10.8) K/uL RBC (4.2-5.4) M/uL Hgb (12.0-16.0) g/dL Hct (37-47) % MCV (80-100) fL MCH (25-34) pg MCHC (32-36) g/dL RDW Std Deviation (36.4-46.3) fL RDW Coeff of Myra (11.5-14.5) % Plt Count (130-400) K/uL MPV (7.4-10.4) fL Immature Gran % (Auto) % Neut % (Auto) % Lymph % (Auto) % Ellis % (Auto) % Eos % (Auto) % Baso % (Auto) % Neut # (Auto) (1.4-6.5) K/uL Lymph # (Auto) (1.2-3.4) K/uL Ellis # (Auto) (0.11-0.59) K/uL Eos # (Auto) (0-0.5) K/uL Baso # (Auto) (0-0.2) K/uL Immature Gran # (Auto) (0.00-0.02) K/uL PT (9.0-12.0) Seconds INR (0.9-1.1) APTT (21.0-31.0) Seconds PTT Ratio VBG pH (7.36-7.41) VBG pCO2 (38-50) mmHg VBG pO2 mmHg VBG HCO3 mmol/L VBG O2 Saturation % VBG Base Excess mEq/L Barometric Pressure mm/Hg Sodium 137 (136-145) mmol/L Potassium 3.1 L (3.5-5.1) mmol/L Chloride 105 (98-107) mmol/L Carbon Dioxide 25 (21-32) mmol/L Anion Gap 7 (3-11) BUN 14 (6-23) mg/dl Creatinine 0.98 (0.6-1.2) mg/dl Est Cr Clr Drug Dosing 48.1 ml/min Est GFR ( Amer) 64.9 ml/min Est GFR (Non-Af Amer) 56.0 ml/min BUN/Creatinine Ratio 14.3 (10-20) Glucose 126 H (70-99(Fasting)) mg/dl Lactate 1.3 (0.4-2.0) mmol/L Calcium 7.1 L (8.5-10.1) mg/dl Magnesium 1.9 (1.7-2.4) mg/dl Total Bilirubin 0.6 (0.2-1.0) mg/dl AST 40 H (13-39) U/L ALT 16 (7-52) U/L Alkaline Phosphatase 235 H (34-104) U/L Troponin I High Sens 352.5 H* (0-14) pg/ml Total Protein 5.4 L (6.0-8.3) gm/dl Albumin 2.8 L (3.4-5.0) gm/dl Globulin 2.6 (2.5-4.0) gm/dl Albumin/Globulin Ratio 1.1 (0.9-2) Procalcitonin 3.73 H (0-0.5) ng/ml Urine Color Urine Appearance (Clear) Urine pH (4.5-7.5) Ur Specific [place] (1.000-1.030) Urine Protein (Negative) Urine Glucose (UA) (Negative) Urine Ketones (Negative) Urine Blood (Negative) Urine Nitrite (Negative) Urine Bilirubin (Negative) Urine Urobilinogen (Negative) Ur Leukocyte Esterase (Negative) Urine WBC (Auto) (0-5) /hpf Urine RBC (Auto) (0-4) /hpf U Hyaline Cast (Auto) (0-5) /lpf U Epithel Cells (Auto) (0-5) /lpf Urine Bacteria (Auto) (Negative) SARS-CoV-2, RNA, NAAT (NEGATIVE) 06/16/21 06/16/21 Range/Units 16:53 18:05 WBC (4.8-10.8) K/uL RBC (4.2-5.4) M/uL Hgb (12.0-16.0) g/dL Hct (37-47) % MCV (80-100) fL MCH (25-34) pg MCHC (32-36) g/dL RDW Std Deviation (36.4-46.3) fL RDW Coeff of Myra (11.5-14.5) % Plt Count (130-400) K/uL MPV (7.4-10.4) fL Immature Gran % (Auto) % Neut % (Auto) % Lymph % (Auto) % Ellis % (Auto) % Eos % (Auto) % Baso % (Auto) % Neut # (Auto) (1.4-6.5) K/uL Lymph # (Auto) (1.2-3.4) K/uL Ellis # (Auto) (0.11-0.59) K/uL Eos # (Auto) (0-0.5) K/uL Baso # (Auto) (0-0.2) K/uL Immature Gran # (Auto) (0.00-0.02) K/uL PT (9.0-12.0) Seconds INR (0.9-1.1) APTT (21.0-31.0) Seconds PTT Ratio VBG pH 7.44 H (7.36-7.41) VBG pCO2 38 (38-50) mmHg VBG pO2 30 mmHg VBG HCO3 25 mmol/L VBG O2 Saturation < 60.0 % VBG Base Excess 1.2 mEq/L Barometric Pressure 729.9 mm/Hg Sodium (136-145) mmol/L Potassium (3.5-5.1) mmol/L Chloride (98-107) mmol/L Carbon Dioxide (21-32) mmol/L Anion Gap (3-11) BUN (6-23) mg/dl Creatinine (0.6-1.2) mg/dl Est Cr Clr Drug Dosing ml/min Est GFR ( Amer) ml/min Est GFR (Non-Af Amer) ml/min BUN/Creatinine Ratio (10-20) Glucose (70-99(Fasting)) mg/dl Lactate (0.4-2.0) mmol/L Calcium (8.5-10.1) mg/dl Magnesium (1.7-2.4) mg/dl Total Bilirubin (0.2-1.0) mg/dl AST (13-39) U/L ALT (7-52) U/L Alkaline Phosphatase (34-104) U/L Troponin I High Sens (0-14) pg/ml Total Protein (6.0-8.3) gm/dl Albumin (3.4-5.0) gm/dl Globulin (2.5-4.0) gm/dl Albumin/Globulin Ratio (0.9-2) Procalcitonin (0-0.5) ng/ml Urine Color Yellow Urine Appearance Cloudy A (Clear) Urine pH 5.0 (4.5-7.5) Ur Specific [place] 1.008 (1.000-1.030) Urine Protein 1+ H (Negative) Urine Glucose (UA) Negative (Negative) Urine Ketones Negative (Negative) Urine Blood 3+ H (Negative) Urine Nitrite Positive A (Negative) Urine Bilirubin Negative (Negative) Urine Urobilinogen Negative (Negative) Ur Leukocyte Esterase 3+ H (Negative) Urine WBC (Auto) >30 H (0-5) /hpf Urine RBC (Auto) 0-4 (0-4) /hpf U Hyaline Cast (Auto) 0 (0-5) /lpf U Epithel Cells (Auto) 0-5 (0-5) /lpf Urine Bacteria (Auto) 1+ H (Negative) SARS-CoV-2, RNA, NAAT (NEGATIVE) Administered Medications Discontinued Medications Acetaminophen (Acetaminophen 500 Mg Tab) 1,000 mg PO NOW STA Stop: 06/16/21 16:08 Last Admin: 06/16/21 16:40 Dose: 1,000 mg Documented by: [id number] Sodium Chloride (Nss 1000ml) 1,000 mls @ 999 mls/hr IV .[id number] ONE Stop: 06/16/21 17:04 Last Infusion: 06/16/21 18:13 Dose: 0 mls/hr Documented by: [id number] Admin: 06/16/21 16:40 Dose: 999 mls/hr Documented by: [id number] Ceftriaxone Sodium (Rocephin) 1,000 mg in 50 mls @ 100 mls/hr IV NOW STA Stop: 06/16/21 16:37 Last Infusion: 06/16/21 18:25 Dose: 0 mls/hr Documented by: [id number] Infusion: 06/16/21 18:13 Dose: 0 mls/hr Documented by: [id number] Admin: 06/16/21 18:00 Dose: 100 mls/hr Documented by: [id number] Promethazine HCl (Phenergan) 12.5 mg in 50.5 mls @ 202 mls/hr IV NOW STA Stop: 06/16/21 18:25 Last Infusion: 06/16/21 19:04 Dose: 0 mls/hr Documented by: [id number] Admin: 06/16/21 18:25 Dose: 202 mls/hr Documented by: [id number] Ondansetron HCl (Ondansetron Inj 2 Mg/Ml 2 Ml Vial) 4 mg IV NOW STA Stop: 06/16/21 16:05 Last Admin: 06/16/21 16:40 Dose: 4 mg Documented by: [id number] Imaging Data Radiologist's Impression: Abdomen/Pelvis CT 06/16/21 16:04 CT OF THE ABDOMEN AND PELVIS WITHOUT CONTRAST CLINICAL HISTORY: Flank pain. Carcinoid tumor. COMPARISON STUDY: CT of the abdomen and pelvis March 13, 2020. TECHNIQUE: Axial images of the abdomen and pelvis were obtained without IV contrast. Images were reviewed in the axial, sagittal, and coronal planes. Automated exposure control was utilized for the study. A dose lowering technique was utilized adhering to the principles of ALARA. FINDINGS: Multiple hepatic masses are suboptimally assessed on this unenhanced exam. These have progressed since abdominal CT of March 13, [address] of January 11, 2021. Index right hepatic dome lesion measures 9.4 cm. It previously measured 6.[address] of January 11, 2021. No pneumatosis, free air or portal venous gas is present. Unenhanced images of the spleen, adrenal glands are unremarkable. Pancreatic glandular atrophy is again noted. Biliary ductal dilatation is similar to prior CT of March 13, 2020. Gallbladder is surgically absent. There is no peripancreatic infiltration. A partially calcified mesenteric mass with associated desmoplastic reaction is similar to prior CT of March 13, 2020. This measures approximately 2.6 cm. This represents a [place] metastasis. There is mild right perinephric stranding. There is mild dilatation of the bilateral renal pelves and proximal ureters. No ureteral calculi are present. No evidence for a bowel obstruction. There is been interval development of multiple small sclerotic lesion since CT of March 13, 2020. The largest is a 1 cm lesion within the left ischial tuberosity. Severe osteophytosis of both hips is incidentally noted. IMPRESSION: 1. Increase in size and number of numerous hepatic masses since chest CT of January 11, 2021 consistent with progression of metastatic disease. 2. Interval development of multiple small sclerotic lesions consistent with skeletal metastases. 3. Mild dilatation of the right renal pelvis and right ureter. Although this may be chronic, there is mild right perinephric stranding. The findings could reflect a recently passed calculus or an infectious process and could be correlated with urinalysis. 4. No change in the partially calcified mesenteric mass with associated desmoplastic reaction consistent with a [place] metastasis. ACT 112: Negative or not required by law. Electronically signed by: Pierre El M.D. 06/16/2021 6:14 PM Chest X-Ray 06/16/21 16:04 XR chest 1V portable HISTORY: 76 years-old Female SEPSIS acute sepsis COMPARISON: Chest radiograph 01/11/2021 TECHNIQUE: Portable AP view of the chest FINDINGS: The cardiomediastinal and hilar silhouettes are within normal limits. There is no pneumothorax, or large pleural effusion. Mild bilateral reticular nodular interstitial opacities. Loop recorder device. Degenerative changes of the shoulders and spine. IMPRESSION: Bilateral reticular nodular interstitial opacities are nonspecific. Correlate clinically to exclude an interstitial infectious or inflammatory pneumonitis. ACT 112: Negative or not required by law. The above report was generated using voice recognition software. It may contain grammatical, syntax or spelling errors. Electronically signed by: Dereck Dominguez M.D. 06/16/2021 5:33 PM Discharge Plan Visit Data Chief Complaint: Vomiting ED Provider: Cristobal Magallanes Discharge Problem: Non-STEMI (non-ST elevated myocardial infarction), LBBB (left bundle branch block), Elevated troponin I level, Nausea vomiting and diarrhea, Urinary tract infection, Fever, Anemia Patient Disposition: Being Evaluated by Hospitalist Discharge Instructions Interventions: ED Discharge Assessment Last Done: 06/16/21 22:46
[2021-06-16 17:23] LABS: Basophils # (auto) 0.01 K/uL (0-0.2); Basophils % (auto) 0.1 %; Eosinophils # (auto) 0.01 K/uL (0-0.5); Eosinophils % (auto) 0.1 %; Hematocrit (blood only) 28.5 % (37-47); Hemoglobin 9.2 g/dL (12.0-16.0); Immature Granulocytes # (auto) 0.06 K/uL (0.00-0.02); Immature Granulocytes % (auto) 0.5 %; Lymphocytes # (auto) 0.44 K/uL (1.2-3.4); Lymphocytes % (auto) 3.7 %; Mean Corpuscular Hemoglobin 28.8 pg (25-34); Mean Corpuscular Hgb Conc 32.3 g/dL (32-36); Mean Corpuscular Volume 89.1 fL (80-100); Mean Platelet Volume 10.5 fL (7.4-10.4); Monocytes # (auto) 1.07 K/uL (0.11-0.59); Neutrophils # (auto) 10.36 K/uL (1.4-6.5); Neutrophils % (auto) 86.6 %; Platelet Count 260 K/uL (130-400); RDW Coefficient of Variation 18.6 % (11.5-14.5); RDW Standard Deviation 60.3 fL (36.4-46.3); White Blood Count 11.95 K/uL (4.8-10.8)
--- NOTE | 2021-06-16 17:34 | XRay Report ---
XR chest 1V portable HISTORY: 76 years-old Female SEPSIS acute sepsis COMPARISON: Chest radiograph 01/11/2021 TECHNIQUE: Portable AP view of the chest FINDINGS: The cardiomediastinal and hilar silhouettes are within normal limits. There is no pneumothorax, or la rge pleural effusion. Mild bilateral reticular nodular interstitial opacities. Loop recorder device. Degenerative changes of the shoulders and spine. IMPRESSION: Bilateral reticular nodular interstitial opacities are nonspecific. Correlate clinically to exclude an interstitial infectious or inflammatory pneumonitis. ACT 112: Negative or not required by law. The above report was generated using voice recognition software. It may contain grammatical, syntax o r spelling errors. Electronically signed by: Dereck Dominguez M.D. 06/16/2021 5:33 PM
[2021-06-16 17:41] LABS: INR 1.3 (0.9-1.1); Partial Thromboplastin Ratio 1.2; Partial Thromboplastin Time 33.4 Seconds (21.0-31.0); Prothrombin Time 13.2 Seconds (9.0-12.0)
[2021-06-16 17:43] LABS: Albumin Globulin Ratio 1.1 (0.9-2); Albumin Level 2.8 gm/dl (3.4-5.0); BUN Creatinine Ratio 14.3 (10-20); Bilirubin,Total 0.6 mg/dl (0.2-1.0); Calcium 7.1 mg/dl (8.5-10.1); Creatinine Clr Calc Pharmacy 48.1 ml/min; Est GFR (African American) 64.9 ml/min; Globulin 2.6 gm/dl (2.5-4.0); Magnesium 1.9 mg/dl (1.7-2.4); Potassium 3.1 mmol/L (3.5-5.1); Total Protein 5.4 gm/dl (6.0-8.3)
[2021-06-16 17:48] LABS: Troponin I High Sensitivity 352.5 pg/ml (0-14)
[2021-06-16 17:55] LABS: Base Excess VBG 1.2 mEq/L; HCO3 VBG 25 mmol/L; PCO2 VBG 38 mmHg (38-50); PO2 VBG 30 mmHg; pH VBG 7.44 (7.36-7.41)
[2021-06-16] MEDS ORDERED: PROMETHAZINE 12.5 MG/50.5 ML BAG IV STA (18:11)
--- NOTE | 2021-06-16 18:16 | CT Scan Report ---
CT OF THE ABDOMEN AND PELVIS WITHOUT CONTRAST CLINICAL HISTORY: Flank pain. Carcinoid tumor. COMPARISON STUDY: CT of the abdomen and pelvis March 13, 2020. TECHNIQUE: Axial images of the abdomen and pelvis were obtained without IV contrast. Images were revi ewed in the axial, sagittal, and coronal planes. Automated exposure control was utilized for the anupama dy. A dose lowering technique was utilized adhering to the principles of ALARA. FINDINGS: Multiple hepatic masses are suboptimally assessed on this unenhanced exam. These have progr essed since abdominal CT of March 13, [address] of January 11, 2021. Index right hepatic d ome lesion measures 9.4 cm. It previously measured 6.[address] of January 11, 2021. No pneumatosis, free air or portal venous gas is present. Unenhanced images of the spleen, adrenal glands are unrema rkable. Pancreatic glandular atrophy is again noted. Biliary ductal dilatation is similar to prior CT of March 13, 2020. Gallbladder is surgically absent. There is no peripancreatic infiltration. A pa rtially calcified mesenteric mass with associated desmoplastic reaction is similar to prior CT of Feb. This measures approximately 2.6 cm. This represents a [place] metastasis. There is mild right perinephric stranding. There is mild dilatation of the bilateral renal pelves and proximal uret ers. No ureteral calculi are present. No evidence for a bowel obstruction. There is been interval dev elopment of multiple small sclerotic lesion since CT of March 13, 2020. The largest is a 1 cm lesio n within the left ischial tuberosity. Severe osteophytosis of both hips is incidentally noted. IMPRESSION: 1. Increase in size and number of numerous hepatic masses since chest CT of January 11, 2021 consist ent with progression of metastatic disease. 2. Interval development of multiple small sclerotic lesions consistent with skeletal metastases. 3. Mild dilatation of the right renal pelvis and right ureter. Although this may be chronic, there is mild right perinephric stranding. The findings could reflect a recently passed calculus or an infect ious process and could be correlated with urinalysis. 4. No change in the partially calcified mesenteric mass with associated desmoplastic reaction consist ent with a orlan[place] metastasis. ACT 112: Negative or not required by law. Electronically signed by: Pierre El M.D. 06/16/2021 6:14 PM
--- NOTE | 2021-06-16 18:19 | History & Physical Report ---
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 #Nausea/vomiting/diarrhea -likely due to viral GI infection, did present with fever in ED -WBC 11.95 -covid negative -1L NSS + potassium IVF 100mls/hr -stool culture ordered -blood culture pending -CMP am #Elevated high sensitivity troponin -h/o NSTEMI -trop > 100, high risk -EKG: nonspecific ST changes, no STEMI -chest XR: bilateral reticular nonspecific opacities; possible sequelae of previous covid -trend trops x3 Q6h #Symptomatic UTI -UA: pos LE, pos nitirites, pos blood -CT abd/pevis w/o contrast: right renal pelvis and ureter dilation w/ mild perinephric stranding -cont. ceftriaxone -culture pending -tylenol prn -patient declines travis for urinary retention, straight cath as needed -desonide cream topical for pain/irritation #Hypokalemia -K 3.1 -likely due to vomiting, diarrhea -replete in NSS + K IVF -CMP am #Hypocalcemia -Calcium 7.1, baseline ~high 8s -total protein low -ionized calcium am #Metastatic Carcinoid -h/o mets to liver -CT abd/pelvis: worsening liver mets with skeletal spread -CT chest w/o contrast pending #Normocytic anemia -likely due to hemorrhoid bleeding -hgb 9.2, baseline ~10.5 -repeat cbc am -would recommend outpatient colonoscopy since past due #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 -albuterol prn #GERD -on zofran daily at home since having covid for nausea -protonix PO qam -maalox, zofran prn #Atrial fibrillation -cont. home eliquis, amiodarone #Vitamin D deficiency -cont. 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 Brought via EMS. Ambulates via wheelchair due to knee OA. Lives at home with , daughter/family. Several members of the household are sick as well with similar symptoms which began over this past weekend. Associated chills/sweats, headache. She states she has been nauseas ever since getting COVID in Dec 2020 and on daily zofran but has been more nauseas as of yesterday. Denies hematochezia. Some bright red blood with diarrhea this morning which she gets once a week because of her hemorrhoids. Yesterday did feel dizzy when she go up to go pee, felt better after laying down. Since having COVID, she has also not had much of an appetite. Says sometimes she feels like there's a sensation of food getting stuck in her throat. Also had catheter placed when she had covid for urinary retention which was removed last month. Has been urinating okay since without catheter but today was having urinary retention and frequency again. Did take her medications this morning. Denies alcohol use. Nonsmoker. Last colonoscopy 20-30 years ago. Allergies Allergy/AdvReac Type Severity Reaction Status Date / Time nut - unspecified Allergy Severe throat Verified 06/16/21 16:39 swelling aspirin Allergy Intermediate "ASTHMA" Verified 06/16/21 16:39 celecoxib Allergy Intermediate "ASTHMA Verified 06/16/21 16:39 ATTACK" codeine Allergy Intermediate "FACE Verified 06/16/21 16:39 PUFFS UP" morphine Allergy Intermediate "FACE Verified 06/16/21 16:39 PUFFS UP" latex Allergy Mild RASH Verified 06/16/21 16:39 caffeine AdvReac Intermediate HEADACHE Verified 06/16/21 16:39 midazolam AdvReac Intermediate extreme Verified 06/16/21 16:39 anxiety fentanyl AdvReac Mild DELIRIUM Verified 06/16/21 16:39 lorazepam AdvReac Mild ANXIOUS Verified 06/16/21 16:39 Home Medications Medication Instructions Recorded Confirmed Type cholecalciferol (vitamin D3) 50 2,000 units PO QAM 04/09/18 06/16/21 History mcg (2,000 unit) capsule (Vitamin D3) lanreotide 120 mg/0.5 mL 0 mg SQ Q4WK ml 12/13/18 06/16/21 History subcutaneous syringe (Somatuline [place]) acetaminophen 500 mg tablet 1,000 mg PO AMHS 09/06/19 06/16/21 History (Tylenol Extra Strength) apixaban 5 mg tablet (Eliquis) 5 mg PO BID #60 tab 06/16/20 06/16/21 Rx lancets (Accu-Chek Softclix #100 ea 06/17/20 03/03/21 Rx Lancets) amiodarone 200 mg tablet 200 mg PO QAM 10/06/20 06/16/21 History albuterol sulfate 90 mcg/actuation 1 puff INHALATION QID PRN #6.7 g 12/23/20 Rx aerosol inhaler Oxygen Home ea 02/12/21 03/03/21 History ondansetron HCl 8 mg tablet 8 mg PO Q8H PRN #20 tab 05/28/21 06/16/21 Rx Past Med/Surg History Medical History 2019 novel coronavirus-infected pneumonia (NCIP) (12/2020) Anal fistula Asthma NO INHALER Atrial fibrillation Coronary vasospasm Elevated alkaline phosphatase level Food allergy, peanut GERD (gastroesophageal reflux disease) Hyperlipidemia Hypertension Liver cancer Metastatic carcinoid tumor (2016) NSTEMI (non-ST elevated myocardial infarction) Osteoarthritis Partial bowel obstruction Prediabetes Proctocolitis Recurrent syncope Sustained ventricular tachycardia Thoracic ascending aortic aneurysm Wide-complex tachycardia Surgical History History of cardiac cath [facility] 2016; "Normal coronary arteries." History of dilatation and curettage History of liver biopsy History of tonsillectomy and adenoidectomy History of tooth extraction S/P appendectomy S/P cholecystectomy S/P total hysterectomy and bilateral salpingo-oophorectomy Family History Sister Family history of diabetes mellitus Myocardial infarction Father Myocardial infarction, Onset Age: 49 Brother CHF (congestive heart failure) Mother Lung cancer Denies family history of Ovarian cancer Prostate cancer Breast cancer Colorectal cancer Social History Smoking Status: Never smoker Second Hand Exposure: No; Hx Alcohol Use: No Hx Substance Use: No Preferred Language: Northern Irish Communication Ability: Effective Visual Impairment: Limited Hearing Ability: Normal Clinical Assistant Professor Required: No Beliefs That Will Affect Care: None marital status: Current Living Situation: Spouse and Family Current Living Situation Comment: spouse, daughter and her family current occupational status: retired 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 denies fevers HEENT: denies congestion, sore throat CV: denies chest pain, palpitations Resp: +SOB on exertion. denies cough GI: +abd pain, +nausea, +vomiting. denies constipation : +urinary retention, +dysuria. Musculoskeletal: denies recent injury Neuro: +generalized weakness Physical Exam Physical Exam: Constitutional: Mild acute distress, pleasant. Vitals as above. HEENT: No scleral injection or discharge.Dry mucous membranes.Clear oropharynx. No exudate.No lesions. Neck: Supple without lymphadenopathy or thyromegaly. Trachea midline. Lungs: Clear to auscultation bilaterally with good effort. Cardiac: Regular rate and rhythm.No murmurs.No extremity edema. Pulses present and full. Abdomen: Bowel sounds present. Soft, nondistended.Mild diffuse tenderness. Negative sullivan's. No guarding. No hepatosplenomegaly. MSK: No cyanosis or clubbing. Extremities motor strength 5/5. Skin: Warm, dry. Neurologic: Grossly intact cranial nerves. PERRL. Rectum: No rectal bleeding : Mild tender mass on right labia otherwise unremarkable Results & Data Results & Data ([facility]) Vital Signs (Past 12 Hours) Vital Signs Temp Pulse Pulse Resp BP BP Pulse Ox 06/16/21 17:10 37.4 C 72 16 112/53 L 93 06/16/21 17:09 16 95 06/16/21 17:00 66 8 L 112/53 L 93 06/16/21 16:54 69 20 115/55 L 93 06/16/21 16:47 75 16 95 06/16/21 16:30 73 19 94 06/16/21 16:00 88 23 107/62 06/16/21 15:59 39.1 C H 90 20 107/62 94 06/16/21 15:57 87 24 112/65 96 Laboratory Results Laboratory Results WBC 11.95 K/uL (4.8-10.8) H 06/16/21 16:53 RBC 3.20 M/uL (4.2-5.4) L 06/16/21 16:53 Hgb 9.2 g/dL (12.0-16.0) L 06/16/21 16:53 Hct 28.5 % (37-47) L 06/16/21 16:53 MCV 89.1 fL (80-100) 06/16/21 16:53 MCH 28.8 pg (25-34) 06/16/21 16:53 MCHC 32.3 g/dL (32-36) 06/16/21 16:53 RDW Std Deviation 60.3 fL (36.4-46.3) H 06/16/21 16:53 RDW Coeff of Myra 18.6 % (11.5-14.5) H 06/16/21 16:53 Plt Count 260 K/uL (130-400) 06/16/21 16:53 MPV 10.5 fL (7.4-10.4) H 06/16/21 16:53 Immature Gran % (Auto) 0.5 % 06/16/21 16:53 Neut % (Auto) 86.6 % 06/16/21 16:53 Lymph % (Auto) 3.7 % 06/16/21 16:53 [place] % (Auto) 9.0 % 06/16/21 16:53 Eos % (Auto) 0.1 % 06/16/21 16:53 Baso % (Auto) 0.1 % 06/16/21 16:53 Neut # (Auto) 10.36 K/uL (1.4-6.5) H 06/16/21 16:53 Lymph # (Auto) 0.44 K/uL (1.2-3.4) L 06/16/21 16:53 [place] # (Auto) 1.07 K/uL (0.11-0.59) H 06/16/21 16:53 Eos # (Auto) 0.01 K/uL (0-0.5) 06/16/21 16:53 Baso # (Auto) 0.01 K/uL (0-0.2) 06/16/21 16:53 Immature Gran # (Auto) 0.06 K/uL (0.00-0.02) H 06/16/21 16:53 PT 13.2 Seconds (9.0-12.0) H 06/16/21 16:53 INR 1.3 (0.9-1.1) H 06/16/21 16:53 APTT 33.4 Seconds (21.0-31.0) H 06/16/21 16:53 PTT Ratio 1.2 06/16/21 16:53 VBG pH 7.44 (7.36-7.41) H 06/16/21 16:53 VBG pCO2 38 mmHg (38-50) 06/16/21 16:53 VBG pO2 30 mmHg 06/16/21 16:53 VBG HCO3 25 mmol/L 06/16/21 16:53 VBG O2 Saturation < 60.0 % 06/16/21 16:53 VBG Base Excess 1.2 mEq/L 06/16/21 16:53 Barometric Pressure 729.9 mm/Hg 06/16/21 16:53 Sodium 137 mmol/L (136-145) 06/16/21 16:53 Potassium 3.1 mmol/L (3.5-5.1) L 06/16/21 16:53 Chloride 105 mmol/L (98-107) 06/16/21 16:53 Carbon Dioxide 25 mmol/L (21-32) 06/16/21 16:53 Anion Gap 7 (3-11) 06/16/21 16:53 BUN 14 mg/dl (6-23) 06/16/21 16:53 Creatinine 0.98 mg/dl (0.6-1.2) 06/16/21 16:53 Est Cr Clr Drug Dosing 48.1 ml/min 06/16/21 16:53 Est GFR ( Amer) 64.9 ml/min 06/16/21 16:53 Est GFR (Non-Af Amer) 56.0 ml/min 06/16/21 16:53 BUN/Creatinine Ratio 14.3 (10-20) 06/16/21 16:53 Glucose 126 mg/dl (70-99(Fasting)) H 06/16/21 16:53 Lactate 1.3 mmol/L (0.4-2.0) 06/16/21 16:53 Calcium 7.1 mg/dl (8.5-10.1) L 06/16/21 16:53 Magnesium 1.9 mg/dl (1.7-2.4) 06/16/21 16:53 Total Bilirubin 0.6 mg/dl (0.2-1.0) 06/16/21 16:53 AST 40 U/L (13-39) H 06/16/21 16:53 ALT 16 U/L (7-52) 06/16/21 16:53 Alkaline Phosphatase 235 U/L (34-104) H 06/16/21 16:53 Troponin I High Sens 352.5 pg/ml (0-14) H* 06/16/21 16:53 Total Protein 5.4 gm/dl (6.0-8.3) L 06/16/21 16:53 Albumin 2.8 gm/dl (3.4-5.0) L 06/16/21 16:53 Globulin 2.6 gm/dl (2.5-4.0) 06/16/21 16:53 Albumin/Globulin Ratio 1.1 (0.9-2) 06/16/21 16:53 Procalcitonin 3.73 ng/ml (0-0.5) H 06/16/21 16:53 Urine Color Yellow 06/16/21 18:05 Urine Appearance Cloudy (Clear) A 06/16/21 18:05 Urine pH 5.0 (4.5-7.5) 06/16/21 18:05 Ur Specific [place] 1.008 (1.000-1.030) 06/16/21 18:05 Urine Protein 1+ (Negative) H 06/16/21 18:05 Urine Glucose (UA) Negative (Negative) 06/16/21 18:05 Urine Ketones Negative (Negative) 06/16/21 18:05 Urine Blood 3+ (Negative) H 06/16/21 18:05 Urine Nitrite Positive (Negative) A 06/16/21 18:05 Urine Bilirubin Negative (Negative) 06/16/21 18:05 Urine Urobilinogen Negative (Negative) 06/16/21 18:05 Ur Leukocyte Esterase 3+ (Negative) H 06/16/21 18:05 Urine WBC (Auto) >30 /hpf (0-5) H 06/16/21 18:05 Urine RBC (Auto) 0-4 /hpf (0-4) 06/16/21 18:05 U Hyaline Cast (Auto) 0 /lpf (0-5) 06/16/21 18:05 U Epithel Cells (Auto) 0-5 /lpf (0-5) 06/16/21 18:05 Urine Bacteria (Auto) 1+ (Negative) H 06/16/21 18:05 SARS-CoV-2, RNA, NAAT NEGATIVE (NEGATIVE) 06/16/21 16:51 Impressions Abdomen/Pelvis CT 06/16/21 16:04 CT OF THE ABDOMEN AND PELVIS WITHOUT CONTRAST CLINICAL HISTORY: Flank pain. Carcinoid tumor. COMPARISON STUDY: CT of the abdomen and pelvis March 13, 2020. TECHNIQUE: Axial images of the abdomen and pelvis were obtained without IV contrast. Images were reviewed in the axial, sagittal, and coronal planes. Automated exposure control was utilized for the study. A dose lowering technique was utilized adhering to the principles of ALARA. FINDINGS: Multiple hepatic masses are suboptimally assessed on this unenhanced exam. These have progressed since abdominal CT of March 13, [address] of January 11, 2021. Index right hepatic dome lesion measures 9.4 cm. It previously measured 6.[address] of January 11, 2021. No pneumatosis, free air or portal venous gas is present. Unenhanced images of the spleen, adrenal glands are unremarkable. Pancreatic glandular atrophy is again noted. Biliary ductal dilatation is similar to prior CT of March 13, 2020. Gallbladder is surgically absent. There is no peripancreatic infiltration. A partially calcified mesenteric mass with associated desmoplastic reaction is similar to prior CT of March 13, 2020. This measures approximately 2.6 cm. This represents a [place] metastasis. There is mild right perinephric stranding. There is mild dilatation of the bilateral renal pelves and proximal ureters. No ureteral calculi are present. No evidence for a bowel obstruction. There is been interval development of multiple small sclerotic lesion since CT of March 13, 2020. The largest is a 1 cm lesion within the left ischial tuberosity. Severe osteophytosis of both hips is incidentally noted. IMPRESSION: 1. Increase in size and number of numerous hepatic masses since chest CT of January 11, 2021 consistent with progression of metastatic disease. 2. Interval development of multiple small sclerotic lesions consistent with skeletal metastases. 3. Mild dilatation of the right renal pelvis and right ureter. Although this may be chronic, there is mild right perinephric stranding. The findings could reflect a recently passed calculus or an infectious process and could be correlated with urinalysis. 4. No change in the partially calcified mesenteric mass with associated desmoplastic reaction consistent with a [place] metastasis. ACT 112: Negative or not required by law. Electronically signed by: Pierre El M.D. 06/16/2021 6:14 PM Chest X-Ray 06/16/21 16:04 XR chest 1V portable HISTORY: 76 years-old Female SEPSIS acute sepsis COMPARISON: Chest radiograph 01/11/2021 TECHNIQUE: Portable AP view of the chest FINDINGS: The cardiomediastinal and hilar silhouettes are within normal limits. There is no pneumothorax, or large pleural effusion. Mild bilateral reticular nodular interstitial opacities. Loop recorder device. Degenerative changes of the shoulders and spine. IMPRESSION: Bilateral reticular nodular interstitial opacities are nonspecific. Correlate clinically to exclude an interstitial infectious or inflammatory pneumonitis. ACT 112: Negative or not required by law. The above report was generated using voice recognition software. It may contain grammatical, syntax or spelling errors. Electronically signed by: Dereck Dominguez M.D. 06/16/2021 5:33 PM ECG Additional Comments: Nonspecific ST changes, no STEMI Supervising Physician Co-Signing Physician Notes Patient seen and examined, chart reviewed, case discussed with Dr. Tay and I agree with the assessment and plan as above. 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 Diarrhea with some bright red blood. On exam she is afebrile, HD stable. Discomfort in vaginal area as well as nausea Dry mucous membranes +S1/S2, regular, no m/r/g Lungs CTA Abd soft, NT/ND Ext warm, well perfused without clubbing/cyanosis or edema Labs and images reviewed. Significant for WBC=11.95, Elevated HS-troponin, Elevated procalcitonin, +UA CT with increase in size and number of hepatic metastases as well as interval development of multiple small sclerotic lesions consistent with skeletal mets Assessment/Plan Suspect viral gastroenteritis as source of N/V/D - family members with similar symptoms - supportive care with IVF, electrolyte repletion Stool culture given history of blood with diarrhea Trend troponin - patient denies chest pain, she does have several risk factors for CAD K repletion Remainder as above Resident Activity Tracking Resident Involvement: Resident Care Provided Care Provided: Adult Hospital Medicine
[2021-06-16 18:23] LABS: Appearance Urine Cloudy (Clear); Bacteria Urine Automated 1+ (Negative); Bilirubin Urine Negative (Negative); Blood Urine 3+ (Negative); Cast Urine Automated 0 /lpf (0-5); Color Urine Yellow; Epithelial Cell Urine Auto 0-5 /lpf (0-5); Glucose Urine UA Negative (Negative); Ketones Urine Negative (Negative); Leukocyte Esterase Urine 3+ (Negative); Nitrite Urine Positive (Negative); Protein Urine 1+ (Negative); RBC Urine Automated 0-4 /hpf (0-4); Specific Gravity Urine 1.008 (1.000-1.030); Urobilinogen Urine Negative (Negative); WBC Urine Automated >30 /hpf (0-5)
[2021-06-16 18:34] LABS: Oxygen Saturation VBG < 60.0 %
[2021-06-16] MEDS ORDERED: PANTOprazole 40 MG TAB PO SCH (20:30)
[2021-06-16] MEDS ORDERED: NITROGLYCERIN SL 0.4 MG/TAB TAB SL PRN (23:12)
[2021-06-16] MEDS ORDERED: ONDANSETRON INJ 2 MG/ML 2 ML VIAL IV PRN (23:12)
[2021-06-16] MEDS ORDERED: MoRPHine SULFATE 2 MG/ML CARP IV PRN (23:12)
[2021-06-16] MEDS ORDERED: DESONIDE CR 15 GM TUBE EXT PRN (23:12)
[2021-06-16] MEDS ORDERED: ALBUTEROL HFA 8 GM INHALER INH PRN (23:12)
[2021-06-16] MEDS ORDERED: PANTOprazole 40 MG TAB PO ONE (23:30)
[2021-06-16] MEDS ORDERED: APIXABAN 5 MG TABLET PO SCH (23:30)
[2021-06-16] MEDS: NSS + 20MEQ KCL 20 MEQ/1,000 ML BAG IV SCH (23:46)
[2021-06-17 06:05] LABS: Basophils # (auto) 0.01 K/uL (0-0.2); Basophils % (auto) 0.1 %; Eosinophils # (auto) 0.03 K/uL (0-0.5); Eosinophils % (auto) 0.3 %; Hematocrit (blood only) 27.5 % (37-47); Hemoglobin 8.6 g/dL (12.0-16.0); Immature Granulocytes # (auto) 0.02 K/uL (0.00-0.02); Immature Granulocytes % (auto) 0.2 %; Lymphocytes # (auto) 0.97 K/uL (1.2-3.4); Lymphocytes % (auto) 8.3 %; Mean Corpuscular Hemoglobin 28.3 pg (25-34); Mean Corpuscular Hgb Conc 31.3 g/dL (32-36); Mean Corpuscular Volume 90.5 fL (80-100); Mean Platelet Volume 10.8 fL (7.4-10.4); Monocytes # (auto) 1.22 K/uL (0.11-0.59); Monocytes % (auto) 10.5 %; Neutrophils # (auto) 9.41 K/uL (1.4-6.5); Neutrophils % (auto) 80.6 %; Platelet Count 320 K/uL (130-400); RDW Coefficient of Variation 18.6 % (11.5-14.5); RDW Standard Deviation 61.8 fL (36.4-46.3); Red Blood Count 3.04 M/uL (4.2-5.4); White Blood Count 11.66 K/uL (4.8-10.8)
[2021-06-17 06:48] LABS: Albumin Globulin Ratio 1.1 (0.9-2); Albumin Level 2.8 gm/dl (3.4-5.0); BUN Creatinine Ratio 13.8 (10-20); Bilirubin,Total 0.7 mg/dl (0.2-1.0); Calcium 7.6 mg/dl (8.5-10.1); Creatinine Clr Calc Pharmacy 51.7 ml/min; Est GFR (Non-African American) 71.6 ml/min; Globulin 2.5 gm/dl (2.5-4.0); Potassium 3.8 mmol/L (3.5-5.1); Total Protein 5.3 gm/dl (6.0-8.3)
--- NOTE | 2021-06-17 07:56 | CT Scan Report ---
CT chest diagnostic wo con CT DOSE: 191.07 mGy.cm HISTORY: Shortness of breath. Nausea. Chills. Fatigue. Evaluate for metastatic disease. TECHNIQUE: Multiaxial CT images of the chest were performed without contrast. A dose lowering techni que was utilized adhering to the principles of ALARA. COMPARISON: Chest CT 01/11/2021. FINDINGS: There are few faint sclerotic foci seen within the sternum, thoracic spine, and ribs likely representing metastatic disease. Dominant lesion within the manubrium measures 7 mm. There are heali ng right posterior ninth and 10th rib fractures which are new from the prior study. Progressive hepat ic metastatic disease which is better appreciated on the same day abdomen and pelvis CT. Normal esoph alicja. No mediastinal or hilar lymphadenopathy. No pleural or pericardial effusions. The ascending tho racic aorta measuring up to 4.3 cm in diameter. This remains unchanged. Stable dilatation of the main pulmonary artery at 3.4 cm consistent with pulmonary arterial hypertension. No pneumothorax. Chronic interstitial thickening with improvement of the scattered ground glass densities. Stable 4 mm nodule within the right upper lobe on image 99. A few scattered linear scarlike densities within the periph chris the lungs. This may correspond to the resolving pneumonitis with mild developing fibrosis. Stable 4 mm nodule within the right upper lobe on image 82. No new pulmonary nodules identified. The centra l airways are patent. Mild emphysema. IMPRESSION: 1. Progressive hepatic metastatic disease which is better appreciated on the same day abdomen and pel vis CT. 2. A few scattered osteoblastic metastatic lesions seen within the thoracic spine, sternum, and ribs. 3. Healing right posterior ninth and 10th rib fractures which is new from the prior study. No pneumot horax. 4. Improvement in the scattered groundglass densities consistent with a resolving pneumonitis. 5. Stable right upper lobe pulmonary nodules measuring up to 4 mm. No new pulmonary nodules identifie d. 6. Additional findings as described above. ACT 112: Negative or not required by law. Electronically signed by: Raymundo Chambers M.D. 06/17/2021 7:53 AM
[2021-06-17] MEDS ORDERED: hydrALAZINE HCL 20 MG/ML VIAL IV PRN (08:15)
[2021-06-17] MEDS: AMIODARONE 200 MG TAB PO SCH (08:21)
[2021-06-17] MEDS: PANTOprazole 40 MG TAB PO SCH (08:21)
[2021-06-17] MEDS: CHOLECALCIFEROL 1,000 UNITS 25 MCG TAB PO SCH (08:21)
--- NOTE | 2021-06-17 09:10 | Electrocardiogram Report ---
Test Reason : Blood Pressure : / mmHG Vent. Rate : 078 BPM Atrial Rate : 078 BPM P-R Int : 166 ms QRS Dur : 116 ms QT Int : 404 ms P-R-T Axes : 074 -19 152 degrees QTc Int : 460 ms Normal sinus rhythm Abnormal ECG When compared with ECG of 20-JAN-2021 12:32, Vent. rate has increased BY [address] now depressed in Lateral leads Nonspecific T wave abnormality, improved in Inferior leads Inverted T waves have replaced nonspecific T wave abnormality in Lateral leads Confirmed by Arsalan Huggins ([id number]) on 06/17/2021 9:09:44 AM Referred By: REFERRED SELF Confirmed By:Valerio Huggins
[2021-06-17] MEDS: NSS + 20MEQ KCL 20 MEQ/1,000 ML BAG IV SCH ×2 (09:25→18:28)
[2021-06-17] MEDS: ALUMINUM/MAGNESIUM SUSP 30 ML UDC PO PRN ×2 (11:12→18:28)
[2021-06-17] MEDS: ACETAMINOPHEN 325 MG TAB PO PRN ×2 (11:12→19:58)
--- NOTE | 2021-06-17 11:28 | Cardiology Consultation ---
Date of Consultation June 17, 2021 Assessment & Plan (1) Elevated troponin I level: Demand ischemia in the setting of ongoing diarrhea, E coli urinary tract infection. Telemetry reveals ongoing sinus rhythm. No racquel angina, already underwent cardiac catheterization for similar EKG findings in 2019 without culprit stenosis. This time, given patient's lack of racquel anginal symptoms, recommend ongoing supportive care. Agree with IV antibiotics, Rocephin, Eliquis currently on hold which I think is reasonable given her degree of diarrhea. Continue amiodarone. An echocardiogram has already been ordered and will be reviewed. History of Present Illness Attending Physician: Rufino Garcia MD History of Present Illness Sofia Garzon is a 76 year old female seen in cardiology consultation per the request of Gypsy Mitchell PA-C and Dr Garcia for the evaluation of elevated HS Troponin. Patient presented to the emergency room with generalized nauseousness, vomiting, diarrhea. She has been found to have a coli in her urine. She notes ongoing diarrhea ever since hospitalization for COVID 19 related illness in the fall of 2020. She has also been on supplemental oxygen since that time. She has a complex history of carcinoid tumor, vasovagal syncope, sinus bradycardia, and atrial arrhythmias including paroxysmal atrial fibrillation and supraventricular tachycardia with aberrant conduction. She has a [employer] LINQ loop recorder in place and remains on amiodarone. At time of hospitalization in July,, she presented with symptomatic atrial fibrillation with rapid ventricular response. With anterolateral ST segment depression noted on EKG with tachycardia. Non ST segment elevation myocardial infarction occurred with troponin I at that time of 3.4 ng/mL. She went on to have cardiac catheterization which revealed mild nonobstructive coronary heart disease. This admission, patient was observed to have elevation in her HS troponin I ( new assay compared to her previous evaluations) which was noted to be elevated at 352.5 picogram per milliliter on presentation, and has trended down to 108.3 picogram per milliliter as of 1052 this morning. Patient denies any anginal symptoms. EKG performed on presentation 06/16/2021 614 revealed sinus rhythm at 70 beats per minute, with lateral ST segment, T-wave abnormality, suggestive of lateral ischemia, IVCD noted. Allergies Allergy/AdvReac Type Severity Reaction Status Date / Time nut - unspecified Allergy Severe throat Verified 06/16/21 16:39 swelling aspirin Allergy Intermediate "ASTHMA" Verified 06/16/21 16:39 celecoxib Allergy Intermediate "ASTHMA Verified 06/16/21 16:39 ATTACK" codeine Allergy Intermediate "FACE Verified 06/16/21 16:39 PUFFS UP" morphine Allergy Intermediate "FACE Verified 06/16/21 16:39 PUFFS UP" latex Allergy Mild RASH Verified 06/16/21 16:39 caffeine AdvReac Intermediate HEADACHE Verified 06/16/21 16:39 midazolam AdvReac Intermediate extreme Verified 06/16/21 16:39 anxiety fentanyl AdvReac Mild DELIRIUM Verified 06/16/21 16:39 lorazepam AdvReac Mild ANXIOUS Verified 06/16/21 16:39 Home Medications Medication Instructions Recorded Confirmed Type cholecalciferol (vitamin D3) 50 2,000 units PO QAM 04/09/18 06/16/21 History mcg (2,000 unit) capsule (Vitamin D3) lanreotide 120 mg/0.5 mL 0 mg SQ Q4WK ml 12/13/18 06/16/21 History subcutaneous syringe (Somatuline Depot) acetaminophen 500 mg tablet 1,000 mg PO AMHS 09/06/19 06/16/21 History (Tylenol Extra Strength) apixaban 5 mg tablet (Eliquis) 5 mg PO BID #60 tab 06/16/20 06/16/21 Rx lancets (Accu-Chek Softclix #100 ea 06/17/20 03/03/21 Rx Lancets) amiodarone 200 mg tablet 200 mg PO QAM 10/06/20 06/16/21 History albuterol sulfate 90 mcg/actuation 1 puff INHALATION QID PRN #6.7 g 12/23/20 06/16/21 Rx aerosol inhaler Oxygen Home ea 02/12/21 03/03/21 History ondansetron HCl 8 mg tablet 8 mg PO Q8H PRN #20 tab 05/28/21 06/16/21 Rx Patient History Medical History 2019 novel coronavirus-infected pneumonia (NCIP) (12/2020) Anal fistula Asthma NO INHALER Atrial fibrillation Coronary vasospasm Elevated alkaline phosphatase level Food allergy, peanut GERD (gastroesophageal reflux disease) Hyperlipidemia Hypertension Liver cancer Metastatic carcinoid tumor (2015) NSTEMI (non-ST elevated myocardial infarction) Osteoarthritis Partial bowel obstruction Prediabetes Proctocolitis Recurrent syncope Sustained ventricular tachycardia Thoracic ascending aortic aneurysm Wide-complex tachycardia Surgical History History of cardiac cath [facility] 2015; "Normal coronary arteries." History of dilatation and curettage History of liver biopsy History of tonsillectomy and adenoidectomy History of tooth extraction S/P appendectomy S/P cholecystectomy S/P total hysterectomy and bilateral salpingo-oophorectomy Family History Sister Family history of diabetes mellitus Myocardial infarction Father Myocardial infarction, Onset Age: 49 Brother CHF (congestive heart failure) Mother Lung cancer Denies family history of Ovarian cancer Prostate cancer Breast cancer Colorectal cancer Social History Smoking Status: Never smoker Second Hand Exposure: Yes; Do You Dip or Chew Tobacco: No; Tobacco Cessation Education Requested by Patient: No Hx Alcohol Use: No Hx Substance Use: No Preferred Language: German Communication Ability: Effective Visual Impairment: Limited Hearing Ability: Normal Laundry Aide Required: No Beliefs That Will Affect Care: None marital status: Current Living Situation: Spouse and Family Current Living Situation Comment: spouse, daughter and her family current occupational status: retired 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 Other Information That Helps Us Care for You: No Feels Safe at Home: Yes Safety Concerns: Feels Safe At This Time Childhood Exposure to Second-Hand Smoke: No caffeine: Yes (occasional soda) during the past year weight has: remained stable Dental Care, Regularly: No Physical Activity Frequency: Daily Seatbelt Use: always Sunscreen Use: Yes Assistive Devices: Cane, Glasses, Oxygen - Continuous, Walker and Wheelchair Review of Systems Review of Systems: All systems reviewed & are unremarkable except as noted in HPI & below Physical Exam Physical Exam: Temp Pulse Resp BP Pulse Ox 37.6 C H 59 L 18 162/79 H 100 06/17/21 08:02 06/17/21 08:02 06/17/21 08:02 06/17/21 08:02 06/17/21 08:02 Constitutional: + ill appearing Respiratory: normal respiratory effort, lungs clear to auscultation Cardiovascular: RRR, no murmur, no edema Gastrointestinal (Abdomen): normal bowel sounds, soft, nontender, no hepatosplenomegaly Neurologic: PERRL, EOMI, accommodation nl, no face palsy, no dysarthria Results & Data ([facility]) Vital Signs (Past 12 Hours) Vital Signs Temp Pulse Pulse Resp BP Pulse Ox 06/17/21 08:02 37.6 C H 59 L 18 162/79 H 100 06/17/21 08:00 58 L 06/17/21 02:54 37.2 C 69 20 137/65 98 Laboratory Results Cardiac Enzymes 06/16/21 06/17/21 Range/Units 16:53 05:19 AST 40 H 27 (13-39) U/L Coagulation 06/16/21 Range/Units 16:53 PT 13.2 H (9.0-12.0) Seconds APTT 33.4 H (21.0-31.0) Seconds CBC 06/16/21 06/17/21 Range/Units 16:53 05:19 WBC 11.95 H 11.66 H (4.8-10.8) K/uL RBC 3.20 L 3.04 L (4.2-5.4) M/uL Hgb 9.2 L 8.6 L (12.0-16.0) g/dL Hct 28.5 L 27.5 L (37-47) % Plt Count 260 320 (130-400) K/uL Neut # (Auto) 10.36 H 9.41 H (1.4-6.5) K/uL Lymph # (Auto) 0.44 L 0.97 L (1.2-3.4) K/uL Dewitt # (Auto) 1.07 H 1.22 H (0.11-0.59) K/uL Eos # (Auto) 0.01 0.03 (0-0.5) K/uL Baso # (Auto) 0.01 0.01 (0-0.2) K/uL Comprehensive Metabolic Panel 06/16/21 06/17/21 Range/Units 16:53 05:19 Sodium 137 144 (136-145) mmol/L Potassium 3.1 L 3.8 D (3.5-5.1) mmol/L Chloride 105 111 H (98-107) mmol/L Carbon Dioxide 25 26 (21-32) mmol/L BUN 14 11 (6-23) mg/dl Creatinine 0.98 0.80 (0.6-1.2) mg/dl Glucose 126 H 89 (70-99(Fasting)) mg/dl Calcium 7.1 L 7.6 L (8.5-10.1) mg/dl AST 40 H 27 (13-39) U/L ALT 16 16 (7-52) U/L Alkaline Phosphatase 235 H 210 H (34-104) U/L Total Protein 5.4 L 5.3 L (6.0-8.3) gm/dl Albumin 2.8 L 2.8 L (3.4-5.0) gm/dl Intake and Output 06/16/21 06/17/21 06/17/21 22:59 06:59 14:59 Intake Total 1160.5 / 1510.5 350 / 1510.5 965 / 965 Output Total 700 / 700 Balance 460.5 / 810.5 350 / 810.5 965 / 965 Intake: IV 1100.5 / 1100.5 965 / 965 Nss + 20Meq KCl 20 meq In 1,000 965 / 965 ml @ 100 mls/hr IV .Q10H VIVEK Rx#:[id number] Promethazine 12.5 mg In 50.5 ml 50.5 / 50.5 @ 202 mls/hr IV NOW STA Rx#: [id number] Sodium Chloride 0.9% 1000ML 1, 1000 / 1000 000 ml @ 999 mls/hr IV .Q1H1M ONE Rx#:[id number] cefTRIAXone SODIUM 1,000 mg In 50 / 50 50 ml @ 100 mls/hr IV NOW STA Rx#:[id number] Oral 60 / 410 350 / 410 Output: Urine 400 / 400 Urine Amount (Catheter) 300 / 300 Straight 300 / 300 Other: Other Intake Source 1050 # Unmeasured Voids 2 Weight 74 kg 57.9 kg Weight Measurement Method Built in [facility] Standing Scale
[2021-06-17] MEDS: cefTRIAXone SODIUM 2,000 MG in DEXTROSE 5% 50 ML IV SCH (11:32)
[2021-06-17 12:30] LABS: Adenovirus F 40/41 PCR Not Detected (NotDetected); Astrovirus PCR Not Detected (NotDetected); Campylobacter PCR Not Detected (NotDetected); Clostridium diff Toxin A/B PCR Not Detected (NotDetected); Cryptosporidium PCR Not Detected (NotDetected); Cyclospora cayetanensis PCR Not Detected (NotDetected); Entamoeba histolytica PCR Not Detected (NotDetected); Enteroaggregative E.coli(EAEC) Not Detected (NotDetected); Enteropathogenic E.coli (EPEC) Not Detected (NotDetected); Enterotoxigenic E.coli (ETEC) Not Detected (NotDetected); Giardia lamblia PCR Not Detected (NotDetected); Norovirus GI/GII PCR Not Detected (NotDetected); Plesiomonas shigelloides PCR Not Detected (NotDetected); Rotavirus A PCR Not Detected (NotDetected); Salmonella PCR Not Detected (NotDetected); Sapovirus PCR Not Detected (NotDetected); Shiga-like Toxin E.coli (STEC) Not Detected (NotDetected); Shigella/Enteroinvasive E.coli Not Detected (NotDetected); Vibrio cholerae PCR Not Detected (NotDetected); Vibrio species PCR Not Detected (NotDetected); Yersinia enterocolitica PCR Not Detected (NotDetected)
--- NOTE | 2021-06-17 13:36 | Hospitalist Progress Note ---
Date of Service June 17, 2021 Assessment & Plan (1) Urinary tract infection: Plan: - Patient presented with fever, grossly infected UA, and radiologic evidence of pyelo via CT (right sided perinephric stranding), and prelim positive blood cultures/urine culture - Preliminary urine culture growing E. coli, remains empirically on Rocephin, agree with 2g IV daily - Continue gentle IVF hydration - Await final culture and sensitivities and tailor abx - Will require minimum of 14 days of treatment d/t pyelo (2) Pyelonephritis: Plan: - As above (3) Bacteremia due to Escherichia coli: Plan: - First set of blood cultures growing GNR - Continue Rocephin, tailor abx as able once cultures finalize (4) Elevated troponin I level: Plan: - Suspect this represents a Type II IN demand ischemia in setting of acute infection - HS troponins are trending down - Last echo from 2019, echo ordered to update - EKG without acute changes and pt is currently CP free - Cardiology consulted, follows with Dr. Morocho, appreciate input (5) Anemia: Plan: - Chronic with baseline ~10g/dL - Heme tested stool which is negative - Low threshold to transfuse if hgb <8 given her c/o ROD - Hold Eliquis (6) Diarrhea: Plan: - Suspected this is related to her carcinoid disease - Do not believe this is infectious diarrhea -- infectious panel ordered and thus far all negative - Fluids, supportive care, can consider Imodium PRN (7) Atrial fibrillation: Plan: - Examines in sinus - Remains on Amiodarone - On Eliquis which is currently being held (8) Metastatic carcinoid tumor: Plan: - Declines further treatment - Lanreotide injections not providing any added benefit - Hospice was discussed at last oncology visit, d/w daughter, Dayan again today, interested in palliative medicine eval, will consult Plan: Interventions as outlined above Can likely transition off of telemetry either later this afternoon or tomorrow PT/OT eval Follow up labs in AM Updated patient's daughter, Dayan, via phone Plan d/w Dr. Garcia Admission and Anticipated Discharge Date Admission Date: June 16, 2021 Subjective Patient was seen on daily rounds this morning. She is resting in bed, reports no new complaints. Hospitalized on 06/16 due to n/v/d. Febrile, noted to have grossly infected urine, and elevated HS troponin. Empirically started on Rocephin. She reports ongoing diarrhea but this is felt to be related to her carcinoid disease. She was seen by her oncologist last month and pt is no longer interested in pursuing treatment (previously getting monthly Lanreotide injections). She denies cp, dyspnea at rest (does get it with exertion), denies cough, fever, chills, n/v. Did have bout of diarrhea this morning and was having dysuria prior to admission but no longer reports that. Review of Systems Review of Systems: All systems reviewed and are unremarkable except as noted in HPI and below. +fatigue, +ROD, diarrhea, depression Denies fever, chills, headache, nasal congestion, sore throat, cough, chest pain, shortness of breath, palpitations, orthopnea, PND, abdominal pain, n/v, constipation, dysuria, hematuria, frequency, back pain, joint pain or swelling, easy bruising or bleeding, skin lesions or rashes. Physical Exam Physical Exam: GENERAL: 76 yo elderly well-developed, well-nourished WF. NAD. LUNGS: Clear to auscultation bilaterally. CARDIOVASCULAR: Regular rate and rhythm. No M/G/R. No JVD. ABDOMEN: Soft, non-tender and non-distended. BS normal x 4 quad. EXTREMITIES: No edema. Non-tender. Peripheral pulses +2/4. NEUROLOGIC: A&O x3. PSYCHIATRIC: Cooperative. Depressed mood, tearful. SKIN: generalized pallor. Warm, dry, intact. No rashes or lesions. Results & Data Results & Data ([facility]) Vital Signs (Past 12 Hours) Vital Signs Temp Pulse Pulse Resp BP Pulse Ox 06/17/21 12:00 36.7 C 57 L 16 154/76 H 100 06/17/21 08:02 37.6 C H 59 L 18 162/79 H 100 06/17/21 08:00 58 L 06/17/21 02:54 37.2 C 69 20 137/65 98 Laboratory Results 06/17/21 05:19 06/17/21 05:19 Spec: [id number] Collected: 06/16/21 Received: 06/16/[address]: Cristobal Magallanes DO Source: Urine,Clean Catch OV Order: Ordered: Urine Culture Procedure Result Verified Site Urine Culture Preliminary 06/17/21-0903 Organism [address] Count >100,000 CFU/ml Sens Sensitivities to Follow Spec: [id number] Collected: 06/16/21 Received: 06/16/[address]: Cristobal Magallanes DO Source: Blood OV Order: Ordered: Blood Culture Comments: Comment Default is separate sites, same time Procedure Result Verified Site Blood Culture Aerobic Preliminary 06/17/21-1043 Organism 1 Gram negative bacilli Sens Sensitivities Dependent on Further Identification Blood Culture Anaerobic Preliminary 06/17/21-48 Organism 1 Gram negative bacilli Sens Sensitivities Dependent on Further Identification Phoned positive Blood Culture Gram Stain report to TRICIA HYMAN on 06/17/21 at 0748 [place] [id number]. [place] [id number]. HS FRIM=822-->251-->187.5-->108 Procal=3.73 PG Care Time/CCT Total # of Minutes Spent Total Time Spent with Patient: Total time spent is greater than 50% in coordination of care (as documented) at patient's floor/unit and/or counseling patient: Coding Level of Care Code 41971 Subseq Hosp Care Lvl 3 Diagnoses Bacteremia due to Escherichia coli R78.81; B96.20 Pyelonephritis N12 Elevated troponin I level R77.8 Anemia D64.9 Anemia type: unspecified type Diarrhea R19.7 Atrial fibrillation I48.91 Metastatic carcinoid tumor C7B.00 Urinary tract infection N39.0; R31.9 Hematuria presence: with hematuria Urinary tract infection type: site unspecified (1) Anemia Anemia type: unspecified type Qualified Code(s): D64.9 - Anemia, unspecified (2) Urinary tract infection Hematuria presence: with hematuria Urinary tract infection type: site unspecified Qualified Code(s): N39.0 - Urinary tract infection, site not speci fied; R31.9 - Hematuria, unspecified
[2021-06-18] MEDS: NSS + 20MEQ KCL 20 MEQ/1,000 ML BAG IV SCH (04:32)
--- NOTE | 2021-06-18 05:41 | Communication Note ---
Date of Service: June 18, 2021 notified of heme pos stool. prior 2 fecal occults had been negative
[2021-06-18] MEDS: AMIODARONE 200 MG TAB PO SCH (07:35)
[2021-06-18] MEDS: PANTOprazole 40 MG TAB PO SCH (07:35)
[2021-06-18] MEDS: CHOLECALCIFEROL 1,000 UNITS 25 MCG TAB PO SCH (07:35)
[2021-06-18] MEDS: ALUMINUM/MAGNESIUM SUSP 30 ML UDC PO PRN (07:38)
[2021-06-18] MEDS: cefTRIAXone SODIUM 2,000 MG in DEXTROSE 5% 50 ML IV SCH (07:39)
[2021-06-18] MEDS: ACETAMINOPHEN 325 MG TAB PO PRN (07:39)
[2021-06-18 07:48] LABS: Basophils # (auto) 0.02 K/uL (0-0.2); Basophils % (auto) 0.2 %; Eosinophils # (auto) 0.12 K/uL (0-0.5); Eosinophils % (auto) 1.4 %; Hematocrit (blood only) 24.7 % (37-47); Hemoglobin 7.6 g/dL (12.0-16.0); Immature Granulocytes # (auto) 0.01 K/uL (0.00-0.02); Immature Granulocytes % (auto) 0.1 %; Lymphocytes # (auto) 1.07 K/uL (1.2-3.4); Lymphocytes % (auto) 12.7 %; Mean Corpuscular Hgb Conc 30.8 g/dL (32-36); Mean Corpuscular Volume 91.1 fL (80-100); Mean Platelet Volume 10.9 fL (7.4-10.4); Monocytes # (auto) 0.88 K/uL (0.11-0.59); Monocytes % (auto) 10.4 %; Neutrophils # (auto) 6.34 K/uL (1.4-6.5); Neutrophils % (auto) 75.2 %; Platelet Count 296 K/uL (130-400); RDW Coefficient of Variation 18.9 % (11.5-14.5); RDW Standard Deviation 63.1 fL (36.4-46.3); Red Blood Count 2.71 M/uL (4.2-5.4); White Blood Count 8.44 K/uL (4.8-10.8)
[2021-06-18] MEDS ORDERED: SODIUM CHLORIDE 0.9% 250 ML IV PRN (07:57)
[2021-06-18] MEDS ORDERED: FUROSEMIDE 40 MG/4 ML VIAL IV ONE (08:00)
[2021-06-18] MEDS ORDERED: ACETAMINOPHEN 325 MG TAB PO ONE (08:00)
[2021-06-18 08:09] LABS: RBC Morphology Unremarkable
[2021-06-18 08:19] LABS: BUN Creatinine Ratio 8.9 (10-20); Calcium 7.3 mg/dl (8.5-10.1); Creatinine Clr Calc Pharmacy 45.9 ml/min; Est GFR (Non-African American) 62.1 ml/min; Magnesium 2.1 mg/dl (1.7-2.4); Potassium 3.7 mmol/L (3.5-5.1)
[2021-06-18 08:43] LABS: Basophils # (auto) 0.01 K/uL (0-0.2); Basophils % (auto) 0.1 %; Eosinophils # (auto) 0.14 K/uL (0-0.5); Eosinophils % (auto) 1.4 %; Hematocrit (blood only) 27.9 % (37-47); Hemoglobin 8.7 g/dL (12.0-16.0); Immature Granulocytes # (auto) 0.03 K/uL (0.00-0.02); Immature Granulocytes % (auto) 0.3 %; Lymphocytes # (auto) 1.41 K/uL (1.2-3.4); Lymphocytes % (auto) 13.7 %; Mean Corpuscular Hemoglobin 28.6 pg (25-34); Mean Corpuscular Hgb Conc 31.2 g/dL (32-36); Mean Corpuscular Volume 91.8 fL (80-100); Mean Platelet Volume 10.6 fL (7.4-10.4); Monocytes # (auto) 0.84 K/uL (0.11-0.59); Monocytes % (auto) 8.2 %; Neutrophils # (auto) 7.84 K/uL (1.4-6.5); Neutrophils % (auto) 76.3 %; Platelet Count 348 K/uL (130-400); RDW Coefficient of Variation 18.7 % (11.5-14.5); RDW Standard Deviation 62.9 fL (36.4-46.3); Red Blood Count 3.04 M/uL (4.2-5.4); White Blood Count 10.27 K/uL (4.8-10.8)
--- NOTE | 2021-06-18 11:09 | Cardiology Progress Note ---
Date of Service June 18, 2021 Assessment & Plan (1) Elevated troponin I level: Plan: Demand ischemia in the setting of ongoing diarrhea, E coli urinary tract infection/E. coli bacteremia. Telemetry reveals ongoing sinus rhythm. No racquel angina. As previously noted, patient underwent cardiac catheterization for similar EKG findings in 2019 without culprit stenosis. Of note, the patient's presenting at HS troponin level of 352 pg/ml is equivalent to 0.35 ng/ml on our previous troponin I assay that had been in service until two weeks ago. The degree of myocardial necrosis , is felt to me minimal. Echo findings are reassuring with normal LV wall motion and normal LVEF. Agree with IV antibiotics, Rocephin Anemia with heme occult positive stool noted. Pt in sinus rhythm. Agree with holding Eliquis in the short term. Patient has a history of chronic metastatic neuroendocrine neoplasm. The most recent progress note from [facility] that I can find dates back to 2019. At that time, patient was noted to have been feeling well, with no abdominal pain, no flushing or diarrhea.Chromogranin A level elevated but stable on most recent measurement in system 02/12/21 , and had trended down from August,. Need to make sure follow up plan with Oncology in place. Admission and Anticipated Discharge Date Admission Date: June 16, 2021 Subjective Pt with ongoing chronic diarrhea of 6 months duration, unchanged today, denies blood with diarrhea. Overall feels better, on appropriate antibiotics for E. coli UTI/bacteremia. Denies any symptoms suggestive angina Review of Systems Review of Systems: All systems reviewed & are unremarkable except as noted in HPI & below Physical Exam Physical Exam: Temp Pulse Resp BP Pulse Ox 36.6 C 73 16 130/75 95 06/18/21 11:08 06/18/21 11:08 06/18/21 11:08 06/18/21 11:08 06/18/21 11:08 Constitutional: + ill appearing Respiratory: normal respiratory effort, lungs clear to auscultation Cardiovascular: RRR, no murmur, no edema Gastrointestinal (Abdomen): normal bowel sounds, soft, nontender, no hepatosplenomegaly Neurologic: PERRL, EOMI, accommodation nl, no face palsy, no dysarthria Results & Data ([facility]) Vital Signs (Past 12 Hours) Vital Signs Temp Pulse Pulse Resp BP Pulse Ox 06/18/21 06:57 37.1 C 65 20 161/73 H 97 06/18/21 03:00 37.1 C 76 18 177/83 H 95 06/17/21 23:45 54 L Diagnostic Findings Sinus bradycardia in the 50s to 60s noted on telemetry. EKG performed today 06/18/2021 and reviewed independently reveals sinus rhythm at 60 bpm, poor R wave progression, chronic finding, the previously noted ST-T wave changes in the inferior and lateral leads on initial EKG this hospital stay have resolved.
[2021-06-18] MEDS ORDERED: LOPERAMIDE HCL 2 MG CAP PO PRN (13:38)
--- NOTE | 2021-06-18 13:38 | Hospitalist Progress Note ---
Date of Service June 18, 2021 Assessment & Plan (1) Urinary tract infection: Plan: - Patient presented with fever, grossly infected UA, and radiologic evidence of pyelo via CT (right sided perinephric stranding), and prelim positive blood cultures/urine culture - Preliminary urine culture growing E. coli, sensitive to Rocephin, continue 2g IV daily - Continue gentle IVF hydration can be stopped at this time - Await final culture and sensitivities and tailor abx - Would treat for minimum of 14 days of treatment d/t pyelo (2) Pyelonephritis: Plan: - As above (3) Bacteremia due to Escherichia coli: Plan: - First set of blood cultures growing GNR anticipate will also be E. coli stemming from urine - Continue Rocephin (4) Elevated troponin I level: Plan: - Suspect this represents a Type II GA demand ischemia in setting of acute infection - HS troponins are trending down - Last echo from 2019, echo ordered to update - EKG without acute changes and pt is currently CP free - Cardiology consulted, seen by Dr. Morocho, appreciate input--no further w/u f elt to be needed (5) Anemia: Plan: - Chronic with baseline ~10g/dL - Heme tested stool which has now come back positive - Low threshold to transfuse if hgb <8 - Hold Eliquis - F/u H&H @ 1600 and w/ CBC in AM (6) Diarrhea: Plan: - Suspected this is related to her carcinoid disease - Not infectious diarrhea -- infectious panel ordered and thus far all negative - Supportive care, can consider Imodium PRN (7) Atrial fibrillation: Plan: - Examines in sinus - Remains on Amiodarone - On Eliquis which is currently being held (8) Metastatic carcinoid tumor: Plan: - Declines further treatment - Lanreotide injections not providing any added benefit - Hospice was discussed at last oncology visit, d/w daughter, Dayan again today, interested in hospice upon d/c - Case management consulted to assist in initiation of hospice, will reach out to hospice liasion Plan: CM consult to assist in d/c process in setting up hospice - can determine what is needed in terms of equipment for home Follow up labs in AM Transfer to med/surg Could be d/c'd as early as tomorrow if all arrangements in place Updated patient's daughter, Dayan, via phone Plan d/w Dr. Garcia Admission and Anticipated Discharge Date Admission Date: June 16, 2021 Subjective Patient seen on daily rounds this morning. She is resting comfortably in bed, reports no new complaints. Continues to have diarrheal stools, no BRB or melena. After two neg heme occults, her third stool came back positive. She has chronic fatigue. No dyspnea at present. Denies cp, n/v, abd pain, gu symptoms. Review of Systems Review of Systems: All systems reviewed and are unremarkable except as noted in HPI and below. +fatigue, diarrhea, depression Denies fever, chills, headache, nasal congestion, sore throat, cough, chest pain, shortness of breath, palpitations, orthopnea, PND, abdominal pain, n/v, constipation, dysuria, hematuria, frequency, back pain, joint pain or swelling, easy bruising or bleeding, skin lesions or rashes. Physical Exam Physical Exam: GENERAL: 76 yo elderly well-developed, well-nourished WF. NAD. LUNGS: Clear to auscultation bilaterally. CARDIOVASCULAR: Regular rate and rhythm. No M/G/R. No JVD. ABDOMEN: Soft, non-tender and non-distended. BS normal x 4 quad. EXTREMITIES: No edema. Non-tender. Peripheral pulses +2/4. NEUROLOGIC: A&O x3. PSYCHIATRIC: Cooperative. Depressed mood, tearful. SKIN: generalized pallor. Warm, dry, intact. No rashes or lesions. Results & Data Results & Data ([facility]) Vital Signs (Past 12 Hours) Vital Signs Temp Pulse Resp BP Pulse Ox 06/18/21 11:08 36.6 C 73 16 130/75 95 06/18/21 06:57 37.1 C 65 20 161/73 H 97 06/18/21 03:00 37.1 C 76 18 177/83 H 95 Laboratory Results 06/18/21 08:26 06/18/21 06:46 Spec: [id number] Collected: 06/16/21 Received: 06/16/[address]: Cristobal Magallanes, Source: Urine,Clean Catch OV Order: Ordered: Urine Culture Procedure Result Verified Site Urine Culture Final 06/18/21114 Organism 1 Escherichia coli [place] Count >100,000 CFU/ml Sens Sensitivities to Follow E coli RX M.I.C. --- --------- Amox/Clav S <=8/4 Ampicillin S <=8 Amp/Sul S <=8/4 Cefazolin S <=2 Cefepime S <=2 Ceftriaxone S <=1 Ciprofloxacin I 0.5 Ertapenem S <=0.5 Gentamicin S <=4 Levofloxacin S <=0.5 Meropenem S <=1 Nitrofurantoin S <=32 Tobramycin S <=4 Trimeth/Sulfa S <=2/38 Pip/Tazo S <=16 S = SENSITIVE I = INTERMEDIATE R = RESISTANT PG Care Time/CCT Total # of Minutes Spent Total Time Spent with Patient: Total time spent is greater than 50% in coordination of care (as documented) at patient's floor/unit and/or counseling patient: Coding Level of Care Code 17025 Subseq Hosp Care Lvl 3 Diagnoses Urinary tract infection N39.0; R31.9 Hematuria presence: with hematuria Urinary tract infection type: site unspecified Pyelonephritis N12 Bacteremia due to Escherichia coli R78.81; B96.20 Elevated troponin I level R77.8 Anemia D64.9 Anemia type: unspecified type Diarrhea R19.7 Atrial fibrillation I48.91 Metastatic carcinoid tumor C7B.00 (1) Urinary tract infection Hematuria presence: with hematuria Urinary tract infection type: site unspecified Qualified Code(s): N39.0 - Urinary tract infection, site not specified; R31.9 - Hematuria, unspecified (2) Anemia Anemia type: unspecified type Qualified Code(s): D64.9 - Anemia, unspecified
[2021-06-18 16:26] LABS: Hematocrit (blood only) 29.4 % (37-47); Hemoglobin 9.1 g/dL (12.0-16.0)
--- NOTE | 2021-06-18 18:02 | Electrocardiogram Report ---
Test Reason : Blood Pressure : / mmHG Vent. Rate : 060 BPM Atrial Rate : 060 BPM P-R Int : 164 ms QRS Dur : 112 ms QT Int : 430 ms P-R-T Axes : 081 -09 122 degrees QTc Int : 430 ms Normal sinus rhythm Anterior infarct (cited on or before 18-JUN-2021) Abnormal ECG When compared with ECG of 16-JUN-2021 16:14, Serial changes of Anterior infarct Present Confirmed by Arsalan Huggins ([id number]) on 06/18/2021 6:02:01 PM Referred By: REFERRED SELF Confirmed By:Valerio Huggins
--- NOTE | 2021-06-18 19:58 | Communication Note ---
Date of Service: June 18, 2021 Messaged by nursing about telemetry status. Reviewed day team's note. Will transfer to med/surg.
[2021-06-19 08:00] LABS: Basophils # (auto) 0.02 K/uL (0-0.2); Basophils % (auto) 0.3 %; Eosinophils # (auto) 0.17 K/uL (0-0.5); Eosinophils % (auto) 2.7 %; Hematocrit (blood only) 25.7 % (37-47); Hemoglobin 8.2 g/dL (12.0-16.0); Immature Granulocytes # (auto) 0.02 K/uL (0.00-0.02); Immature Granulocytes % (auto) 0.3 %; Lymphocytes # (auto) 1.32 K/uL (1.2-3.4); Lymphocytes % (auto) 20.7 %; Mean Corpuscular Hemoglobin 28.5 pg (25-34); Mean Corpuscular Hgb Conc 31.9 g/dL (32-36); Mean Corpuscular Volume 89.2 fL (80-100); Mean Platelet Volume 10.1 fL (7.4-10.4); Monocytes # (auto) 0.71 K/uL (0.11-0.59); Monocytes % (auto) 11.1 %; Neutrophils # (auto) 4.13 K/uL (1.4-6.5); Neutrophils % (auto) 64.9 %; Platelet Count 322 K/uL (130-400); RDW Coefficient of Variation 18.5 % (11.5-14.5); RDW Standard Deviation 60.9 fL (36.4-46.3); Red Blood Count 2.88 M/uL (4.2-5.4); White Blood Count 6.37 K/uL (4.8-10.8)
[2021-06-19 08:36] LABS: BUN Creatinine Ratio 8.9 (10-20); Calcium 7.6 mg/dl (8.5-10.1); Creatinine Clr Calc Pharmacy 45.9 ml/min; Est GFR (Non-African American) 62.1 ml/min; Magnesium 2.1 mg/dl (1.7-2.4); Potassium 3.1 mmol/L (3.5-5.1)
[2021-06-19] MEDS: AMIODARONE 200 MG TAB PO SCH (09:40)
[2021-06-19] MEDS: cefTRIAXone SODIUM 2,000 MG in DEXTROSE 5% 50 ML IV SCH (09:41)
[2021-06-19] MEDS: CHOLECALCIFEROL 1,000 UNITS 25 MCG TAB PO SCH (09:42)
[2021-06-19] MEDS: PANTOprazole 40 MG TAB PO SCH (09:42)
--- NOTE | 2021-06-19 10:34 | Cardiology Progress Note ---
Date of Service June 19, 2021 Assessment & Plan (1) Hypokalemia: Plan: -K of 3.1, having received a dose of IV furosemide yesterday. Replace orally, 40 Meq x 1 ordered. (2) Bacteremia due to Escherichia coli: Plan: -Continue IV antibiotics. Repeat blood cultures in process at the time of my evaluation. (3) Elevated troponin I level: Plan: -Likely due to myocardial demand in setting of non cardiac illness. EKG improved on repeat. No clinical angina. Admission and Anticipated Discharge Date Admission Date: June 16, 2021 Subjective Sofia is seen in cardiology follow up. Looks more energetic today, closer to her baseline. State diarrhea perhaps a little better. Physical Exam Constitutional: + ill appearing Respiratory: normal respiratory effort, lungs clear to auscultation Cardiovascular: RRR, no murmur, no edema Gastrointestinal (Abdomen): normal bowel sounds, soft, nontender, no hepatosplenomegaly Neurologic: PERRL, EOMI, accommodation nl, no face palsy, no dysarthria Results & Data ([facility]) Vital Signs (Past 12 Hours) Vital Signs Temp Pulse Resp BP BP Pulse Ox 06/19/21 07:45 36.7 C 54 L 20 170/82 H 96 06/18/21 23:04 58 L 18 170/78 H 06/18/21 22:45 37.3 C 59 L 18 174/90 H 100
[2021-06-19] MEDS ORDERED: POTASSIUM CHLORIDE CRTAB 20 MEQ TABCR PO STA ×2 (10:38→12:20)
[2021-06-19] MEDS: ACETAMINOPHEN 325 MG TAB PO PRN (11:55)
--- NOTE | 2021-06-19 12:56 | Discharge Summary ---
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 Brought via EMS. Ambulates via wheelchair due to knee OA. Lives at home with , daughter/family. Several members of the household are sick as well with similar symptoms which began over this past weekend. Associated chills/sweats, headache. She states she has been nauseas ever since getting COVID in Dec 2020 and on daily zofran but has been more nauseas as of yesterday. Denies hematochezia. Some bright red blood with diarrhea this morning which she gets once a week because of her hemorrhoids. Yesterday did feel dizzy when she go up to go pee, felt better after laying down. Since having COVID, she has also not had much of an appetite. Says sometimes she feels like there's a sensation of food getting stuck in her throat. Also had catheter placed when she had covid for urinary retention which was removed last month. Has been urinating okay since without catheter but today was having urinary retention and frequency again. Did take her medications this morning. Denies alcohol use. Nonsmoker. Last colonoscopy 20-30 years ago. Principal Diagnosis 1. UTI/Acute Pyelonephritis- E.Coli 2. Bacteremia- E.coli 3. Anemia- Acute on Chronic 4. Positive Fecal Occult Blood-- Eliquis Stopped 5. Metastatic Cancer (GI Carcinoid Tumor)-- D/C home with hospice 6. Elevated Troponin- Likely Supply/Demand Ischemia (from #1/2 and #3) rather than unstable plaque Discharge Exam General: Resting comfortably in her hospital bed. Appears chronically but not acutely ill or toxic. NAD. HEENT: Head is AT/NC. Buccal mucosa is moist and pink Neck: No JVD. Negative hepatojugular reflex Cardiac: Currently in a normal sinus rhythm with controlled ventricular rate Lungs: CTA without W/R/R Abdomen: Normoactive X4. Soft and nontender in all quadrants. Extremities: No peripheral clubbing cyanosis or edema Neuro: A&O X4. Cranial nerves II through XII are grossly intact. No focal neuro deficits Skin: No obvious skin lesions or rashes Psych: Appropriate affect. Pleasant and cooperative Discharge Data Allergies Allergy/AdvReac Type Severity Reaction Status Date / Time nut - unspecified Allergy Severe throat Verified 06/16/21 16:39 swelling aspirin Allergy Intermediate "ASTHMA" Verified 06/16/21 16:39 celecoxib Allergy Intermediate "ASTHMA Verified 06/16/21 16:39 ATTACK" codeine Allergy Intermediate "FACE Verified 06/16/21 16:39 PUFFS UP" morphine Allergy Intermediate "FACE Verified 06/16/21 16:39 PUFFS UP" latex Allergy Mild RASH Verified 06/16/21 16:39 caffeine AdvReac Intermediate HEADACHE Verified 06/16/21 16:39 midazolam AdvReac Intermediate extreme Verified 06/16/21 16:39 anxiety fentanyl AdvReac Mild DELIRIUM Verified 06/16/21 16:39 lorazepam AdvReac Mild ANXIOUS Verified 06/16/21 16:39 Consultations 06/16/21 18:24 ED Decision to Admit Stat 06/17/21 08:20 Consult Cardiology Routine Ordered Studies 06/16/21 16:04 CT abd pelvis wo con Stat IMPRESSION: 1. Increase in size and number of numerous hepatic masses since chest CT of January 11, 2021 consistent with progression of metastatic disease. 2. Interval development of multiple small sclerotic lesions consistent with skeletal metastases. 3. Mild dilatation of the right renal pelvis and right ureter. Although this may be chronic, there is mild right perinephric stranding. The findings could reflect a recently passed calculus or an infectious process and could be correlated with urinalysis. 4. No change in the partially calcified mesenteric mass with associated desmoplastic reaction consistent with a [place] metastasis. 06/16/21 20:28 CT chest diagnostic wo con Urgent IMPRESSION: 1. Progressive hepatic metastatic disease which is better appreciated on the same day abdomen and pelvis CT. 2. A few scattered osteoblastic metastatic lesions seen within the thoracic spine, sternum, and ribs. 3. Healing right posterior ninth and 10th rib fractures which is new from the prior study. No pneumothorax. 4. Improvement in the scattered groundglass densities consistent with a resolving pneumonitis. 5. Stable right upper lobe pulmonary nodules measuring up to 4 mm. No new pulmonary nodules identified. 6. Additional findings as described above. Hospital Course (1) Urinary tract infection: - Patient presented with fever, grossly infected UA, and radiologic evidence of pyelo via CT (right sided perinephric stranding), and prelim po sitive blood cultures/urine culture - Urine culture-->Pansensitive E.Coli. --Initially on Rocephin. Tolerating this despite multiple drug allergies (including to cephalosporins). Transition to Omnicef 300mg twice a day x 7 additional days (10 days total) - Continue gentle IVF hydration can be stopped at this time (2) Pyelonephritis: - As above (3) Bacteremia due to Escherichia coli: - Blood cultures positive for E.Coli - On Rocephin upfront-- transition to Omnicef upon D/C (total of 10 days) - repeat BS drawn today to prove clearance. Patient adamant to be discharged today (with hospice) services. No contraindication to this. Ideally, would like to ensure blood cultures clear (at least x 24 hours) but does seem to be on appropriate abx therapy based on culture data and responding favorably and requesting home with hospice. (4) Elevated troponin I level: - High sensitive troponin elevated at 352.5. Did downtrend to 108.3 - Patient without chest pain or acute EKG changes - Echocardiogram done showing no regional wall motion abnormalities with an EF o f 55 to 60%, mild MR/TR and grade 1 diastolic dysfunction - Suspect this is a type II event from supply/demand ischemia given her active UTI with bacteremia and anemia- (rather than from an unstable plaque) - Cardiology following and agrees. Appreciate recommendations from Dr. Morocho (5) Anemia: - Acute on Chronic with baseline ~10g/dL - Does have a known GI carcinoid tumor and takes Eliquis for her underlying atrial fibrillation - Hemoglobin down to 9.1 during this hospitalization - Eliquis has since been stopped as her fecal occult blood has since come back positive - Empirically started on Protonix (6) Diarrhea: - Suspected this is related to her carcinoid disease - Not infectious diarrhea -- infectious panel ordered and thus far all negative - Supportive care, can consider Imodium PRN (7) Atrial fibrillation: - Examines in sinus - Remains on Amiodarone - Was on Eliquis coming into this hospitalization (which is now being stopped given her known GI Carcinoid Tumor, Anemia, and positive fecal occult blood) (8) Metastatic carcinoid tumor: - Declines further treatment - Lanreotide injections not providing any added benefit - Hospice was discussed at last oncology visit. This was re-explored during this hospitalization and patient (and her daughter) express interest. - Case management on board D/C to home today with hospice services. Updated patient's daughter, Dayan, via phone Plan d/w and patient to be seen by Dr. Garcia Total Time Total Time Spent Total Time Spent (In Minutes): 45 min including time spent with patient, D/C patient/daughter and attending provider. Discharge Plan Discharge Items Patient Disposition: Hospice - Home Reason For Visit: NAUSEA, VOMITING, DIARRHEA Discharge Diagnosis: 1. UTI 2. Bacteremia 3. Generalized Weakness 4. Metastatic Cancer- now declines further tx and requesting hospice Activity: Resume your previous activity Activity Comment: as tolerated Non-emergency contact: Primary Care Provider Call non-emergency contact if: you have any medication questions, your symptoms worsen and you have a fever Follow-up/Referrals: Vicenta Gilbert DO [Primary Care Provider] - Diet: Regular Addtl Attending Provider Instructions: you presented to the hospital complaining of generalized weakness and were found to have a UTI and Bacteremia (the bacteria has spread from the urinary tract and into your blood stream). I believe that you are generally weak from the metastatic cancer and chemotherapy but this infection has only worsened that. You have been treated with antibiotics. Continue antibiotics (orally)-- Cefdinir 300mg twice a day for 7 more days (next dose due tonight) You have chosen to stop all chemotherapy and requested hospice services. I have offered home therapy to determine if your weakness might improve slightly (as I believe a component of it is from your acute infection) but you and your daughter have declined. I offered keeping you in the hospital to determine that your blood cultures have cleared the infection but you requested home today with hospice. Your blood count has been low during this hospitalization and you were found to have blood noted in your stool. Your Eliquis has since been stopped. Protonix has been added empirically to help protect your stomach (and help with any potential ulcer/irritation) You can follow up with your PCP: 7-10 days Return to the ED for new or worsening symptoms Pending Studies at Discharge: Yes Studies:: repeat blood cultures (to prove clearance) Stand-Alone Forms: My [email or web address] Medications and DC Order Prescriptions: New pantoprazole 40 mg Tablet,Delayed Release (Dr/Ec) 40 mg PO QAM Qty: 30 RF: 0 cefdinir 300 mg capsule 300 mg PO BID Qty: 15 RF: 0 Continued (DME) lancets [Accu-Chek Softclix Lancets] Misc See Rx Instructions .ROUTE .MEDSUPPLY Qty: 100 RF: 2 ondansetron HCl 8 mg tablet 8 mg PO Q8H PRN (Reason: nausea and vomiting) Qty: 20 RF: 0 albuterol sulfate 90 mcg/actuation HFA aerosol inhaler 1 puff inhalation QID PRN (Reason: shortness of breath or wheezing) Qty: 6.7 RF: 0 amiodarone 200 mg tablet 200 mg PO QAM RF: 0 (DME) Oxygen Home Liters Per Minute See Rx Instructions .Route RF: 0 cholecalciferol (vitamin D3) [Vitamin D3] 2,000 unit Capsule 2,000 units PO QAM RF: 0 acetaminophen [Tylenol Extra Strength] 500 mg Tablet 1,000 mg PO AMHS RF: 0 Discontinued Eliquis 5 mg tablet 5 mg PO BID Qty: 60 RF: 2 Somatuline [place] 120 mg/0.5 mL syringe 0 mg SQ Q4WK RF: 0 Discharge Orders: Discharge Order (Routine); Ordered 06/19/21 Ordered By: Tejal Manning Admission Data Admit Date/Time: 06/16/21 20:28 Attending Provider: Rufino Garcia Admit Provider: Shen Tay Primary Care Provider: Vicenta Gilbert Other Providers: Tesfaye Owens ; Judson Callahan Coding Level of Care Code D/C DAY MANAGEMENT >30 MINS Diagnoses Urinary tract infection N39.0; R31.9 Hematuria presence: with hematuria Urinary tract infection type: site unspecified Pyelonephritis N12 Bacteremia due to Escherichia coli R78.81; B96.20 Elevated troponin I level R77.8 Anemia D64.9 Anemia type: unspecified type Diarrhea R19.7 Atrial fibrillation I48.91 Metastatic carcinoid tumor C7B.00
== END 2021-06-19 15:48 | disposition hospice, home (50) | DRG 689 ==
LOC: ED 15:49 → 2N 20:28 → SUATTDRO 20:28 → 2N 22:46